=== PATIENT | male | born 1955 | race Caucasian/White ===

== ENCOUNTER 2019-12-05 08:55 | Inpatient (IN) ==
[2019-12-05 09:55] LABS: Hematocrit (blood only) 38.7 % (42-52); Hemoglobin 13.5 g/dL (14.0-18.0); Mean Corpuscular Hemoglobin 29.8 pg (25-34); Mean Corpuscular Hgb Conc 34.9 g/dL (32-36); Mean Corpuscular Volume 85.4 fL (80-100); Mean Platelet Volume 9.9 fL (7.4-10.4); Nucleated RBC # (auto) 0.03 K/uL (0-0); Nucleated RBC % (auto) 0.3 %; Platelet Count 330 K/uL (130-400); RDW Standard Deviation 40.7 fL (36.4-46.3); Red Blood Count 4.53 M/uL (4.7-6.1); White Blood Count 10.37 K/uL (4.8-10.8)
[2019-12-05 10:06] LABS: Alanine Aminotransferase 49 U/L (12-78); Aspartate Aminotransferase 93 U/L (15-37); BUN Creatinine Ratio 20.9 (10-20); Blood Urea Nitrogen 56 mg/dl (7-18); Carbon Dioxide 23 mmol/L (21-32); Chloride 95 mmol/L (98-107); Creatinine Clr Calc Pharmacy 31.8 ml/min; Est GFR (African American) 27.4; Est GFR (Non-African American) 23.6; Glucose 261 mg/dl (70-99); Potassium 3.3 mmol/L (3.5-5.1); Sodium 130 mmol/L (136-145)
[2019-12-05 10:11] LABS: Albumin Globulin Ratio 0.4 (0.9-2); Alkaline Phosphatase 103 U/L (45-117); Bilirubin,Total 0.5 mg/dl (0.2-1); Creatine Kinase MB 5.8 ng/ml (0.5-3.6); Globulin 5.3 gm/dl (2.5-4.0); NT Pro B Type Natriuretic Pept 275 pg/ml (0-900); Total Protein 7.3 gm/dl (6.4-8.2); Troponin I 0.037 ng/ml (0-0.045)
[2019-12-05 10:16] LABS: Partial Thromboplastin Time 28.9 Seconds (21.0-31.0); Prothrombin Time 10.6 Seconds (9.0-12.0)
--- NOTE | 2019-12-05 10:21 | XRay Report ---
XR chest 1V portable CLINICAL HISTORY: 64 years-old Male presenting with Dyspnea. TECHNIQUE: Portable upright AP view of the chest was obtained. COMPARISON: None. FINDINGS: Atherosclerosis of the aortic arch. Cardiac silhouette borderline enlarged. Patchy added density of t he lungs with a mid to basilar predominance, right greater than left. Bronchial wall thickening may a lso be present. Mild pulmonary vascular prominence. No large effusion or pneumothorax. Degenerative c hanges of the glenohumeral joints and spine. Upper abdomen normal. IMPRESSION: 1. Patchy bilateral infiltrates with a mid to basilar predominant suspected. Evaluation limited by p atient body habitus, which decreases diagnostic sensitivity the exam. Atypical pneumonia or edema not excluded. Chest CT could be considered for confirmation. 2. Borderline cardiomegaly. ACT 112: Negative or not required by law. Electronically signed by: Yfn Stallings M.D. 12/05/2019 10:20 AM
[2019-12-05 10:22] LABS: Base Excess ABG -0.6 mEq/L (-9-1.8); HCO3 ABG 22 mmol/L (19-24); Oxygen Saturation ABG 94.1 % (90-95); PCO2 ABG 29 mmHg (35-46); PO2 ABG 67 mmHg (80-95); pH ABG 7.49 (7.35-7.45)
[2019-12-05 10:26] LABS: Allen Test Pos (Pos)
[2019-12-05 10:31] LABS: D Dimer 2280 ug/L FEU (0-500)
[2019-12-05 10:36] LABS: Basophils # (auto) 0.01 K/uL (0-0.2); Basophils % (auto) 0.1 %; Immature Granulocytes # (auto) 0.06 K/uL (0.00-0.02); Immature Granulocytes % (auto) 0.6 %; Lymphocytes # (auto) 0.34 K/uL (1.2-3.4); Lymphocytes % (auto) 3.3 %; Monocytes # (auto) 0.14 K/uL (0.11-0.59); Monocytes % (auto) 1.4 %; Neutrophils # (auto) 9.82 K/uL (1.4-6.5); Neutrophils % (auto) 94.6 %; RBC Morphology Unremarkable
[2019-12-05 10:49] LABS: Adenovirus PCR Not Detected (NotDetected); Bordetella parapertussis PCR Not Detected (NotDetected); Bordetella pertussis PCR Not Detected (NotDetected); Chlamydia pneumoniae PCR Not Detected (NotDetected); Coronavirus 229E PCR Not Detected (NotDetected); Coronavirus HKU1 PCR Not Detected (NotDetected); Coronavirus NL63 PCR Not Detected (NotDetected); Coronavirus OC43PCR Not Detected (NotDetected); Human Metapneumovirus PCR Not Detected (NotDetected); Influenza A PCR Not Detected (NotDetected); Influenza B PCR Not Detected (NotDetected); Mycoplasma pneumoniae PCR Not Detected (NotDetected); Parainfluenza Virus 1 PCR Not Detected (NotDetected); Parainfluenza Virus 2 PCR Not Detected (NotDetected); Parainfluenza Virus 3 PCR Not Detected (NotDetected); Parainfluenza Virus 4 PCR Not Detected (NotDetected); Respiratory Syncytial VirusPCR Not Detected (NotDetected); Rhinovirus/Enterovirus PCR Not Detected (NotDetected)
[2019-12-05] MEDS ORDERED: CEFEPIME 2,000 MG/20 ML VIAL IV STA (11:00)
[2019-12-05] MEDS ORDERED: DOXYCYCLINE HYCLATE 100 MG in DEXTROSE 5% 100 ML IV STA (11:00)
--- NOTE | 2019-12-05 11:49 | Emergency Department Note ---
History of Present Illness General Chief Complaint: Shortness of Breath/Dyspnea Stated Complaint: DOC REFERRED,POSSIBLE COVID Source: patient and family Mode of arrival: ambulatory Limitations: clinical acuity History of Present Illness Provider Complaint: shortness of breath and cough Onset (ago): week(s) (2) Severity: severe Consistency/Duration: + constant Maximum Pain Intensity: 0 Relieved By: + nothing Exacerbated By: + nothing Context: + recent illness Associated symptoms: + fever, + cough and + wheezing Treatment prior to arrival: bronchodilator HPI Narrative: This is a 64-year-old male who presents to the ED with a chief complaint of 2 weeks worth of upper respiratory symptoms that progressively worsened. The patient has had a fever, cough, wheezing, shortness of breath and generalized weakness. The patient has a history of diabetes and his sugars have been fluctuating. His blood sugar was low last night according to family. He was confused today. The patient has taken Tylenol and Xopenex for his symptoms without improvement. He has not had any recent travel or known exposures. The patient is unable to provide much history because he is somewhat somnolent. His provided the history through the nurse. She is not ill. Home Medications Home Medications Medication Instructions Recorded Confirmed Type amlodipine 10 mg tablet 10 mg PO DAILY #90 tab 04/17/19 12/05/19 History glimepiride 4 mg tablet 8 mg PO DAILY #180 tab 04/17/19 12/05/19 History lisinopril 20 2 tab PO DAILY #180 tab 04/17/19 12/05/19 History mg-hydrochlorothiazide 12.5 mg tablet atorvastatin 40 mg tablet 40 mg PO DAILY #90 tab 05/08/19 12/05/19 Rx insulin syringe-needle U-100 1 mL #100 ea 06/05/19 08/22/19 Rx 30 gauge x 1/2" linagliptin 5 mg tablet 5 mg PO DAILY #90 tab 06/05/19 12/05/19 Rx metformin 1,000 mg tablet 1,000 mg PO UD #180 tab 08/20/19 12/05/19 History insulin glargine 100 unit/mL 54 units SUBCUT QPM #5 vial 09/09/19 12/05/19 Rx subcutaneous solution Allergies Allergy/AdvReac Type Severity Reaction Status Date / Time No Known Allergies Allergy Unknown Verified 12/05/19 09:58 Past Med/Surg History Medical History Dysplastic nevus Sebaceous cyst Surgical History No pertinent past surgical history Family History Mother Diabetes Father Cancer Lung cancer Aunt Colorectal cancer Denies family history of Ovarian cancer Prostate cancer Myocardial infarction Breast cancer Social History Preferred Language: Maltese Communication Ability: Effective Visual Impairment: No Limitations Hearing Ability: Normal Coding Specialist Required: No Beliefs That Will Affect Care: None marital status: current occupational status: employed 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 Feels Safe at Home: Yes Smoking Status: Current every day smoker Hx Alcohol Use: Yes Hx Substance Use: No Childhood Exposure to Second-Hand Smoke: Yes Dental Care, Regularly: Yes Physical Activity Frequency: Does not Exercise Seatbelt Use: sometimes Sunscreen Use: No Review of Systems Unobtainable due to reduced consciousness Physical Exam Vital Signs: Vital Signs - 24 hr 12/05/19 09:06 12/05/19 09:23 12/05/19 09:30 Temperature 37.7 C H Temperature Source Oral Pulse Rate 101 H 102 H 100 H Pulse Rate from Sp O2 Sensor 102 H 100 H Respiratory Rate 28 H 19 15 Respiratory Effort / Characteristics Spontaneous Short of Breath Respiratory Depth Respiratory Patter n Blood Pressure 119/70 130/70 129/70 Blood Pressure Zuleyka n 86 97 94 Blood Pressure Pos ition Sitting Pulse Oximetry 72 L 87 L 86 L Oxygen Delivery Me thod Room Air Oxygen Flow Rate Fraction of Inspir ed Oxygen Sepsis Recent Feve r Within 48 Hours Yes Sepsis New/Unexpla ined Change in Men sarahy Status No Sepsis Action Take n by Nursing No Action Required 12/05/19 09:39 12/05/19 09:40 12/05/19 09:58 Temperature Temperature Source Pulse Rate 102 H 99 H Pulse Rate from Sp O2 Sensor 92 H Respiratory Rate 19 26 H Respiratory Effort / Characteristics Respiratory Depth Normal Respiratory Patter n Regular Blood Pressure Blood Pressure Z[place] n Blood Pressure Pos ition Pulse Oximetry 87 L 95 Oxygen Delivery Me thod Room Air Oxygen Flow Rate 65 Fraction of Inspir ed Oxygen 100 Sepsis Recent Feve r Within 48 Hours Sepsis New/Unexpla ined Change in Men sarahy Status Sepsis Action Take n by Nursing Physical Exam: CONSTITUTIONAL/VITAL SIGNS: Reviewed / noted above. GENERAL: Non-toxic in appearance. INTEGUMENTARY: Warm, dry, and Iva. HEAD: Normocephalic. EYES: without scleral icterus or trauma. ENT/OROPHARYNX: clear and moist. LYMPHADENOPATHY/NECK: Is supple without lymphadenopathy or meningismus. RESPIRATORY: Lungs reveal bilateral rhonchi CARDIOVASCULAR: Regular rate and rhythm. GI/ABDOMEN: Soft and nontender. No organomegaly or pulsatile mass. No rebound or guarding. Normal bowel sounds. EXTREMITIES: Warm and well perfused. BACK: No CVA tenderness. NEUROLOGICAL: Intact without focal deficits. Generalized weakness PSYCHIATRIC: normal affect. MUSCULOSKELETAL: Normally developed with good muscle tone. TRIAGE NURSING DOCUMENTATION REVIEWED. Procedures ABG Interpretation ABG Interpretation 1: ABG Results: ABG reveals hypercarbia and a subsequent respiratory alkalosis. Oxygenation is adequate with supplemental oxygen at this time. Course Administered Medications Doxycycline Hyclate 100 mg/ (Dextrose) 110 mls @ 50 mls/hr IV NOW STA Stop: 12/05/19 13:11 Last Admin: 12/05/19 11:26 Dose: 50 mls/hr Documented by: [id number] Discontinued Medications Cefepime HCl (Maxipime) 2,000 mg in 20 mls @ 5 mls/min IV NOW STA; Protocol Stop: 12/05/19 11:03 Last Admin: 12/05/19 11:26 Dose: 5 mls/min Documented by: [id number] Medical Decision Making Differential Diagnosis The differential was considered includes acute myocardial infarction, acute coronary syndrome, myocarditis, pericarditis, pericardial effusions /tamponad, esophageal perforation, pulmonary embolism, pneumonia, pneumothorax, cardio myopathy, congestive heart, anemia , COPD/asthma exacerbation. Medical Records Attestation: I reviewed the patient's medical records. Home Medications Current Medication List: was personally reviewed by me Laboratory Data Attestation: I reviewed the patient's lab results. Result diagrams: 12/05/19 09:30 12/05/19 09:30 Lab Results 12/05/19 12/05/19 12/05/19 Range/Units 09:30 09:30 09:30 WBC 10.37 (4.8-10.8) K/uL RBC 4.53 L (4.7-6.1) M/uL Hgb 13.5 L (14.0-18.0) g/dL Hct 38.7 L (42-52) % MCV 85.4 (80-100) fL MCH 29.8 (25-34) pg MCHC 34.9 (32-36) g/dL RDW Std Deviation 40.7 (36.4-46.3) fL RDW Coeff of Josué 13.0 (11.5-14.5) % Plt Count 330 (130-400) K/uL MPV 9.9 (7.4-10.4) fL Immature Gran % (Auto) 0.6 % Neut % (Auto) 94.6 % Lymph % (Auto) 3.3 % [place] % (Auto) 1.4 % Eos % (Auto) 0.0 % Baso % (Auto) 0.1 % Immature Gran # (Auto) 0.06 H (0.00-0.02) K/uL Neut # (Auto) 9.82 H (1.4-6.5) K/uL Lymph # (Auto) 0.34 L (1.2-3.4) K/uL [place] # (Auto) 0.14 (0.11-0.59) K/uL Eos # (Auto) 0.00 (0-0.5) K/uL Baso # (Auto) 0.01 (0-0.2) K/uL Absolute Nucleated RBC 0.03 H (0-0) K/uL Nucleated RBC % (auto) 0.3 % RBC Morphology Unremarkable PT 10.6 (9.0-12.0) Seconds INR 1.0 (0.9-1.1) APTT 28.9 (21.0-31.0) Seconds PTT Ratio 1.0 D-Dimer 2280 H* (0-500) ug/L FEU ABG pH (7.35-7.45) ABG pCO2 (35-46) mmHg ABG pO2 (80-95) mmHg ABG HCO3 (19-24) mmol/L ABG O2 Saturation (90-95) % ABG Base Excess (-9-1.8) mEq/L Garett Test (Pos) Barometric Pressure mm/Hg Oxygen Given Sodium 130 L (136-145) mmol/L Potassium 3.3 L (3.5-5.1) mmol/L Chloride 95 L (98-107) mmol/L Carbon Dioxide 23 (21-32) mmol/L Anion Gap 12.0 H (3-11) BUN 56 H (7-18) mg/dl Creatinine 2.69 H (0.6-1.4) mg/dl Est Cr Clr Drug Dosing 31.8 ml/min Est GFR ( Amer) 27.4 Est GFR (Non-Af Amer) 23.6 BUN/Creatinine Ratio 20.9 H (10-20) Glucose 261 H (70-99) mg/dl Calcium 8.0 L (8.5-10.1) mg/dl Total Bilirubin 0.5 (0.2-1) mg/dl AST 93 H (15-37) U/L ALT 49 (12-78) U/L Alkaline Phosphatase 103 (45-117) U/L CK-MB (CK-2) 5.8 H (0.5-3.6) ng/ml Troponin I 0.037 (0-0.045) ng/ml NT-Pro-B Natriuret Pep 275 (0-900) pg/ml Total Protein 7.3 (6.4-8.2) gm/dl Albumin 2.0 L (3.4-5.0) gm/dl Globulin 5.3 H (2.5-4.0) gm/dl Albumin/Globulin Ratio 0.4 L (0.9-2) Adenovirus (PCR) (NotDetected) B. pertussis DNA (PCR) (NotDetected) B.parapertussis DNA PCR (NotDetected) C. pneumoniae DNA (PCR) (NotDetected) Coronavirus OC43 (PCR) (NotDetected) Coronavirus HKU1 (PCR) (NotDetected) Coronavirus 229E (PCR) (NotDetected) Coronavirus NL63 (PCR) (NotDetected) Human Metapneumovir PCR (NotDetected) Influenza Type A (PCR) Influenza Type B (PCR) M. pneumoniae (PCR) (NotDetected) Parainfluenza 1 (PCR) (NotDetected) Parainfluenza 2 (PCR) (NotDetected) Parainfluenza 3 (PCR) (NotDetected) Parainfluenza 4 (PCR) (NotDetected) RSV (PCR) (NotDetected) Entero/Rhino (PCR) (NotDetected) 12/05/19 12/05/19 12/05/19 Range/Units 09:30 09:30 10:08 WBC (4.8-10.8) K/uL RBC (4.7-6.1) M/uL Hgb (14.0-18.0) g/dL Hct (42-52) % MCV (80-100) fL MCH (25-34) pg MCHC (32-36) g/dL RDW Std Deviation (36.4-46.3) fL RDW Coeff of Josué (11.5-14.5) % Plt Count (130-400) K/uL MPV (7.4-10.4) fL Immature Gran % (Auto) % Neut % (Auto) % Lymph % (Auto) % [place] % (Auto) % Eos % (Auto) % Baso % (Auto) % Immature Gran # (Auto) (0.00-0.02) K/uL Neut # (Auto) (1.4-6.5) K/uL Lymph # (Auto) (1.2-3.4) K/uL [place] # (Auto) (0.11-0.59) K/uL Eos # (Auto) (0-0.5) K/uL Baso # (Auto) (0-0.2) K/uL Absolute Nucleated RBC (0-0) K/uL Nucleated RBC % (auto) % RBC Morphology PT (9.0-12.0) Seconds INR (0.9-1.1) APTT (21.0-31.0) Seconds PTT Ratio D-Dimer (0-500) ug/L FEU ABG pH 7.49 H (7.35-7.45) ABG pCO2 29 L (35-46) mmHg ABG pO2 67 L (80-95) mmHg ABG HCO3 22 (19-24) mmol/L ABG O2 Saturation 94.1 (90-95) % ABG Base Excess -0.6 (-9-1.8) mEq/L Garett Test Pos (Pos) Barometric Pressure 729.9 mm/Hg Oxygen Given 100% Sodium (136-145) mmol/L Potassium (3.5-5.1) mmol/L Chloride (98-107) mmol/L Carbon Dioxide (21-32) mmol/L Anion Gap (3-11) BUN (7-18) mg/dl Creatinine (0.6-1.4) mg/dl Est Cr Clr Drug Dosing ml/min Est GFR ( Amer) Est GFR (Non-Af Amer) BUN/Creatinine Ratio (10-20) Glucose (70-99) mg/dl Calcium (8.5-10.1) mg/dl Total Bilirubin (0.2-1) mg/dl AST (15-37) U/L ALT (12-78) U/L Alkaline Phosphatase (45-117) U/L CK-MB (CK-2) (0.5-3.6) ng/ml Troponin I (0-0.045) ng/ml NT-Pro-B Natriuret Pep (0-900) pg/ml Total Protein (6.4-8.2) gm/dl Albumin (3.4-5.0) gm/dl Globulin (2.5-4.0) gm/dl Albumin/Globulin Ratio (0.9-2) Adenovirus (PCR) Not Detected (NotDetected) B. pertussis DNA (PCR) Not Detected (NotDetected) B.parapertussis DNA PCR Not Detected (NotDetected) C. pneumoniae DNA (PCR) Not Detected (NotDetected) Coronavirus OC43 (PCR) Not Detected (NotDetected) Coronavirus HKU1 (PCR) Not Detected (NotDetected) Coronavirus 229E (PCR) Not Detected (NotDetected) Coronavirus NL63 (PCR) Not Detected (NotDetected) Human Metapneumovir PCR Not Detected (NotDetected) Influenza Type A (PCR) Cancelled Not Detected Influenza Type B (PCR) Cancelled Not Detected M. pneumoniae (PCR) Not Detected (NotDetected) Parainfluenza 1 (PCR) Not Detected (NotDetected) Parainfluenza 2 (PCR) Not Detected (NotDetected) Parainfluenza 3 (PCR) Not Detected (NotDetected) Parainfluenza 4 (PCR) Not Detected (NotDetected) RSV (PCR) Not Detected (NotDetected) Entero/Rhino (PCR) Not Detected (NotDetected) Imaging Data Radiologist's Impression: XR chest 1V portable CLINICAL HISTORY: 64 years-old Male presenting with Dyspnea. TECHNIQUE: Portable upright AP view of the chest was obtained. COMPARISON: None. FINDINGS: Atherosclerosis of the aortic arch. Cardiac silhouette borderline enlarged. Patchy added density of the lungs with a mid to basilar predominance, right greater than left. Bronchial wall thickening may also be present. Mild pulmonary vascular prominence. No large effusion or pneumothorax. Degenerative changes of the glenohumeral joints and spine. Upper abdomen normal. IMPRESSION: 1. Patchy bilateral infiltrates with a mid to basilar predominant suspected. Evaluation limited by patient body habitus, which decreases diagnostic sensitivity the exam. Atypical pneumonia or edema not excluded. Chest CT could be considered for confirmation. 2. Borderline cardiomegaly. ECG Data Attestation: I personally reviewed and interpreted this ECG as follows: (Twelve- lead EKG shows a sinus tach at a rate of 101. No ST elevation or PVCs. ) Blood Pressure Blood Pressure Findings: Normal blood pressure MDM Narrative This is a 64-year-old male who presents to the ED with a chief complaint of 2 weeks worth of upper respiratory symptoms that progressively worsened. The patient has had a fever, cough, wheezing, shortness of breath and generalized weakness. The patient has a history of diabetes and his sugars have been flu ctuating. His blood sugar was low last night according to family. He was confused today. The patient has taken Tylenol and Xopenex for his symptoms without improvement. He has not had any recent travel or known exposures. The patient is unable to provide much history because he is somewhat somnolent. His provided the history through the nurse. She is not ill. The patient is significantly hypoxic here with initial oxygen saturations of 72% on room air. He does not use home oxygen. The patient was febrile at home with a temperature of 102. He has not been febrile here. Temperature here was 37.7. He does not appear to be in respiratory distress. He does seem to be somewhat lethargic although his ABG did not look like he is hypoventilating. He is not hypercarbic. CBC was normal. D-dimer is elevated at 2280. His BUN is 56 and creatinine is 2.69. No known history of renal issues. He is hyperglycemic. Chest x-ray reveals bilateral infiltrates. Flu swab was negative and a bio fire was negative. The patient was started on IV cefepime as well as IV doxycycline. He was also initiated with BiPAP shortly after he came in. He does appear to be saturating much better on the BiPAP in the mid 90s on 65%. The patient will be seen by the hospitalist for further inpatient evaluation and care. Impression & Plan Bilateral pneumonia, Respiratory failure, Hypoxia, Acute renal failure (ARF), Acute dehydration Critical Care Time Critical Care Time: Yes Total Critical Care Time: 35 I have personally spent 35 minutes of critical care time in the direct management of this patient. This includes bedside care, interpretation of diagnostic studies, and testing, discussion with consultants, patient, and family members, and other required patient management activities. This 35 minutes is in excess of all separately billable procedures. Discharge Plan Visit Data Chief Complaint: Shortness of Breath/Dyspnea Stated Complaint: DOC REFERRED,POSSIBLE COVID ED Provider: Rony Gomes Discharge Problem: Bilateral pneumonia, Respiratory failure, Hypoxia, Acute renal failure (ARF), Acute dehydration Patient Disposition: Being Evaluated by Hospitalist Forms Stand Alone Forms: My [facility] Prescriptions Prescriptions: No Action atorvastatin 40 mg tablet 40 mg PO DAILY Qty: 90 RF: 3 linagliptin 5 mg tablet 5 mg PO DAILY Qty: 90 RF: 1 (DME) insulin syringe-needle U-100 [BD Insulin Syringe Ultra-Fine] 1 mL 30 gauge x 1/2" syringe See Dose Instructions .ROUTE .MEDSUPPLY Qty: 100 RF: 2 insulin glargine 100 unit/mL solution 54 units subcut QPM Qty: 5 RF: 2 amlodipine 10 mg tablet 10 mg PO DAILY Qty: 90 RF: 0 glimepiride 4 mg tablet 8 mg PO DAILY Qty: 180 RF: 0 lisinopril-hydrochlorothiazide 20-12.5 mg tablet 2 tab PO DAILY Qty: 180 RF: 0 metformin 1,000 mg tablet 1,000 mg PO UD Qty: 180 RF: 0 Referrals Referrals: Lee Jones MD [Primary Care Provider] -
--- NOTE | 2019-12-05 12:20 | History & Physical Report ---
Date of Service December 05, 2019 Assessment & Plan (1) Acute respiratory failure with hypoxia: Admit to ICU. B/l pneumonia on chest x-ray. Clinical picture highly concerning for COVID-19 (normal wbc count, lymphopenia, elevated AST, elevated d-dimer, cxr findings, etc). Profoundly hypoxic upon presentation; improved with NIPPV. Spoke with Dr Goel from ICU; reviewed the patient's case with him in detail; Dr Goel to consider early intubation given COVID-19 concerns and high risk of worsening respiratory status. To cover for bacterial pneumonia - cefepime 2gm q8h; zyvox while awaiting MRSA screen; doxy for atypicals. No indication for steroids at this time. COVID pathway - airborne isolation, contact isolation, etc (2) Suspected 2019 novel coronavirus infection: see above in "acute hypoxic resp failure" biofire negative flu negative COVID sent LDH added to labs (3) Sepsis: 2nd to pneumonia high concern of COVID-19 infection supportive care, IVF, IV antibiotics, etc (4) Bilateral pneumonia: see above blood cx's sent cefepime/zyvox/doxy to cover typicals, atypicals, gram negatives MRSA [employer] swab COVID-19 sent (5) Acute renal failure (ARF): 2nd to dehydration/sepsis Normosol hydration serial labs HOLD MIKAEL HOLD HCTZ avoid NSAIDs (6) Chronic obstructive pulmonary disease: by history, but not on inhalers at home. no wheezing on examination -- just b/l basilar rales. avoid nebs. see above in "acute hypoxic resp failure." (7) Current smoker: consider nicoderm patch defer to ICU 50+ years of smoking per patient (8) Gastroesophageal reflux disease: PPI or H2 kristian per ICU protocol (9) Gout: no recent issues not on prophylaxis (10) Obstructive sleep apnea: noted (11) Hyperlipidemia: hold STATIN (12) Hypertension: HOLD anti-hypertensives (HCTZ, MIKAEL, norvasc, etc) some literature suggesting some protection with MIKAEL use but need to hold in light of ARF (13) Diabetes mellitus type II, uncontrolled: hyperglycemic ICU protocol defer to pharmacy (14) Hypokalemia: KCL 10meq IV x 1 serial labs mag level not low (15) Hyponatremia: likely due to dehydration/volume depletion and chronic HCTZ use (16) Metabolic encephalopathy: multifactorial - sepsis, pneumonia, possible COVID-19, hyponatremia, hypoxia, etc supportive care (17) DVT prophylaxis: defer selection to critical care team History of Present Illness Chief Complaint: shortness of breath Primary Care Provider: Lee Jones MD 64yo male with history of COPD, ongoing tobacco dependence, T2DM, obesity, ASA on CPAP - presents from home with 10-14 days of cough, worsening shortness of breath, fevers (which worsened 3-4 days ago), poor appetite, and runny nose. Patient works in the [employer] industry but has not worked of late. No recent travel. No obvious sick contacts. 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 Due to worsening respiratory distress this am he was brought to the [facility] ER. Upon arrival he was hypoxic in the 70s and placed on BIPAP for such. By report he was quite lethargic upon admission but after receiving BIPAP his mentation improved. During my admission assessment he was able to answer all of my questions but at times he was confused. Admits to not checking his blood sugars at home. After I had left his isolation room staff reported that he has an ulcer on one of his feet (per ). Allergies Allergy/AdvReac Type Severity Reaction Status Date / Time No Known Allergies Allergy Unknown Verified 12/05/19 09:58 Home Medications Home Medications Medication Instructions Recorded Confirmed Type amlodipine 10 mg tablet 10 mg PO DAILY #90 tab 04/17/19 12/05/19 History glimepiride 4 mg tablet 8 mg PO DAILY #180 tab 04/17/19 12/05/19 History lisinopril 20 2 tab PO DAILY #180 tab 04/17/19 12/05/19 History mg-hydrochlorothiazide 12.5 mg tablet atorvastatin 40 mg tablet 40 mg PO DAILY #90 tab 05/08/19 12/05/19 Rx insulin syringe-needle U-100 1 mL #100 ea 06/05/19 08/22/19 Rx 30 gauge x 1/2" linagliptin 5 mg tablet 5 mg PO DAILY #90 tab 06/05/19 12/05/19 Rx metformin 1,000 mg tablet 1,000 mg PO UD #180 tab 08/20/19 12/05/19 History insulin glargine 100 unit/mL 54 units SUBCUT QPM #5 vial 09/09/19 12/05/19 Rx subcutaneous solution Past Med/Surg History Surgical History No pertinent past surgical history Family History Mother Diabetes Father Cancer Lung cancer age 53 Aunt Colorectal cancer Denies family history of Ovarian cancer Prostate cancer Myocardial infarction Breast cancer Social History (Updated 12/05/19 @ 12:47 by Hector Turner) Preferred Language: Maltese Communication Ability: Effective Visual Impairment: No Limitations Hearing Ability: Normal Testing And Regulating Technician Required: No Beliefs That Will Affect Care: None marital status: Current Living Situation: Spouse Current Living Situation Comment: lives with ; no kids current occupational status: employed 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; [employer] Other Information That Helps Us Care for You: No Feels Safe at Home: Yes Safety Concerns: Feels Safe At This Time Smoking Status: Current every day smoker Tobacco Type: cigarettes ; Cigarettes Per Day: does not know, recently none ; Do You Dip or Chew Tobacco: No ; Second Hand Exposure: No ; Tobacco Cessation Education Requested by Patient: No Hx Alcohol Use: Yes Hx Substance Use: No Childhood Exposure to Second-Hand Smoke: Yes Dental Care, Regularly: Yes Physical Activity Frequency: Does not Exercise Seatbelt Use: sometimes Sunscreen Use: No Review of Systems Constitutional: + fever, + chills, + fatigue and + anorexia Eyes: no discharge Ear, Nose, Mouth, Throat: + nasal discharge; no sore throat Respiratory: + cough and + dyspnea on exertion; no pain on inspiration Cardiovascular: + dyspnea at rest and + dyspnea on exertion; no chest pain, no chest pain at rest and no chest pain with activity Gastrointestinal: + constipation; no abdominal pain, no nausea, no vomiting and no diarrhea/loose stools Genitourinary: no dysuria Musculoskeletal: + myalgia and + body aches Integumentary: no rash Neurologic: + generalized weakness Endocrine: doesn't check BSGs Physical Exam Constitutional: + morbidly obese and + altered mental status; no acute distress Eyes: + anicteric sclerae and PERRL ENMT: Mouth: + dry oral mucous membranes Neck: normal visual inspection Respiratory: no respiratory distress and does not use accessory muscles Auscultation: + rales (bibasilar); no wheezes Cardiovascular: Rate/Rhythm: regular rate and regular rhythm Heart Sounds: normal S1 and normal S2 Vessels: posterior tibial pulses present and dorsalis pedis pulses present; no JVD Extremities: no edema cool extremities to touch Gastrointestinal (Abdomen): normal bowel sounds, soft, nontender, no hepatosplenomegaly Skin: no rashes Neurologic: moves all extremities Psychiatric: Orientation: oriented to person and oriented to place; + not oriented to time Results & Data Results & Data ([facility]) Vital Signs (Past 12 Hours) Vital Signs Temp Pulse Resp BP Pulse Ox 12/05/19 09:58 99 H 26 H 95 12/05/19 09:40 102 H 19 87 L 12/05/19 09:30 100 H 15 129/70 86 L 12/05/19 09:23 102 H 19 130/70 87 L 12/05/19 09:06 37.7 C H 101 H 28 H 119/70 72 L Laboratory Results Laboratory Results - last 24 hr 12/05/19 12/05/19 12/05/19 09:30 09:30 09:30 WBC 10.37 RBC 4.53 L Hgb 13.5 L Hct 38.7 L MCV 85.4 MCH 29.8 MCHC 34.9 RDW Std Deviation 40.7 RDW Coeff of Josué 13.0 Plt Count 330 MPV 9.9 Immature Gran % (Auto) 0.6 Neut % (Auto) 94.6 Lymph % (Auto) 3.3 Tompkins % (Auto) 1.4 Eos % (Auto) 0.0 Baso % (Auto) 0.1 Immature Gran # (Auto) 0.06 H Neut # (Auto) 9.82 H Lymph # (Auto) 0.34 L Tompkins # (Auto) 0.14 Eos # (Auto) 0.00 Baso # (Auto) 0.01 Absolute Nucleated RBC 0.03 H Nucleated RBC % (auto) 0.3 RBC Morphology Unremarkable PT 10.6 INR 1.0 APTT 28.9 PTT Ratio 1.0 D-Dimer 2280 H* ABG pH ABG pCO2 ABG pO2 ABG HCO3 ABG O2 Saturation ABG Base Excess Garett Test Barometric Pressure Oxygen Given Sodium 130 L Potassium 3.3 L Chloride 95 L Carbon Dioxide 23 Anion Gap 12.0 H BUN 56 H Creatinine 2.69 H Est Cr Clr Drug Dosing 31.8 Est GFR ( Amer) 27.4 Est GFR (Non-Af Amer) 23.6 BUN/Creatinine Ratio 20.9 H Glucose 261 H Calcium 8.0 L Total Bilirubin 0.5 AST 93 H ALT 49 Alkaline Phosphatase 103 CK-MB (CK-2) 5.8 H Troponin I 0.037 NT-Pro-B Natriuret Pep 275 Total Protein 7.3 Albumin 2.0 L Globulin 5.3 H Albumin/Globulin Ratio 0.4 L Adenovirus (PCR) B. pertussis DNA (PCR) B.parapertussis DNA PCR C. pneumoniae DNA (PCR) Coronavirus (PCR) Coronavirus OC43 (PCR) Coronavirus HKU1 (PCR) Coronavirus 229E (PCR) COVID-19 Pt Symptomatic COVID-19 Source Coronavirus NL63 (PCR) Human Metapneumovir PCR Influenza Type A (PCR) Influenza Type B (PCR) M. pneumoniae (PCR) Parainfluenza 1 (PCR) Parainfluenza 2 (PCR) Parainfluenza 3 (PCR) Parainfluenza 4 (PCR) RSV (PCR) Entero/Rhino (PCR) SARS Virus RNA (PCR) SARS-CoV-2 RNA (RT-PCR) 12/05/19 12/05/19 12/05/19 09:30 09:30 09:30 WBC RBC Hgb Hct MCV MCH MCHC RDW Std Deviation RDW Coeff of Josué Plt Count MPV Immature Gran % (Auto) Neut % (Auto) Lymph % (Auto) Tompkins % (Auto) Eos % (Auto) Baso % (Auto) Immature Gran # (Auto) Neut # (Auto) Lymph # (Auto) Tompkins # (Auto) Eos # (Auto) Baso # (Auto) Absolute Nucleated RBC Nucleated RBC % (auto) RBC Morphology PT INR APTT PTT Ratio D-Dimer ABG pH ABG pCO2 ABG pO2 ABG HCO3 ABG O2 Saturation ABG Base Excess Garett Test Barometric Pressure Oxygen Given Sodium Potassium Chloride Carbon Dioxide Anion Gap BUN Creatinine Est Cr Clr Drug Dosing Est GFR ( Amer) Est GFR (Non-Af Amer) BUN/Creatinine Ratio Glucose Calcium Total Bilirubin AST ALT Alkaline Phosphatase CK-MB (CK-2) Troponin I NT-Pro-B Natriuret Pep Total Protein Albumin Globulin Albumin/Globulin Ratio Adenovirus (PCR) Not Detected B. pertussis DNA (PCR) Not Detected B.parapertussis DNA PCR Not Detected C. pneumoniae DNA (PCR) Not Detected Coronavirus (PCR) Pending Coronavirus OC43 (PCR) Not Detected Coronavirus HKU1 (PCR) Not Detected Coronavirus 229E (PCR) Not Detected COVID-19 Pt Symptomatic Pending COVID-19 Source Pending Coronavirus NL63 (PCR) Not Detected Human Metapneumovir PCR Not Detected Influenza Type A (PCR) Cancelled Not Detected Influenza Type B (PCR) Cancelled Not Detected M. pneumoniae (PCR) Not Detected Parainfluenza 1 (PCR) Not Detected Parainfluenza 2 (PCR) Not Detected Parainfluenza 3 (PCR) Not Detected Parainfluenza 4 (PCR) Not Detected RSV (PCR) Not Detected Entero/Rhino (PCR) Not Detected SARS Virus RNA (PCR) Pending SARS-CoV-2 RNA (RT-PCR) Pending 12/05/19 10:08 WBC RBC Hgb Hct MCV MCH MCHC RDW Std Deviation RDW Coeff of Josué Plt Count MPV Immature Gran % (Auto) Neut % (Auto) Lymph % (Auto) Tompkins % (Auto) Eos % (Auto) Baso % (Auto) Immature Gran # (Auto) Neut # (Auto) Lymph # (Auto) Tompkins # (Auto) Eos # (Auto) Baso # (Auto) Absolute Nucleated RBC Nucleated RBC % (auto) RBC Morphology PT INR APTT PTT Ratio D-Dimer ABG pH 7.49 H ABG pCO2 29 L ABG pO2 67 L ABG HCO3 22 ABG O2 Saturation 94.1 ABG Base Excess -0.6 Garett Test Pos Barometric Pressure 729.9 Oxygen Given 100% Sodium Potassium Chloride Carbon Dioxide Anion Gap BUN Creatinine Est Cr Clr Drug Dosing Est GFR ( Amer) Est GFR (Non-Af Amer) BUN/Creatinine Ratio Glucose Calcium Total Bilirubin AST ALT Alkaline Phosphatase CK-MB (CK-2) Troponin I NT-Pro-B Natriuret Pep Total Protein Albumin Globulin Albumin/Globulin Ratio Adenovirus (PCR) B. pertussis DNA (PCR) B.parapertussis DNA PCR C. pneumoniae DNA (PCR) Coronavirus (PCR) Coronavirus OC43 (PCR) Coronavirus HKU1 (PCR) Coronavirus 229E (PCR) COVID-19 Pt Symptomatic COVID-19 Source Coronavirus NL63 (PCR) Human Metapneumovir PCR Influenza Type A (PCR) Influenza Type B (PCR) M. pneumoniae (PCR) Parainfluenza 1 (PCR) Parainfluenza 2 (PCR) Parainfluenza 3 (PCR) Parainfluenza 4 (PCR) RSV (PCR) Entero/Rhino (PCR) SARS Virus RNA (PCR) SARS-CoV-2 RNA (RT-PCR) Diagnostic Findings cxr - b/l infiltrates EKG - my reading sinus tach, no ST changes, prolonged QTc Code Status & VTE Plan Code Status full code VTE Prophylaxis Plan VTE Prophylaxis will be ordered: Yes Critical Care Time Critical Care Time: Yes Total Critical Care Time: 70 PG Care Time/CCT Total # of Minutes Spent Total Time Spent with Patient: Total time spent is greater than 50% in coordination of care (as documented) at patient's floor/unit and/or counseling patient: Critical Care Time: Yes Total Critical Care Time: 70 Coding Level of Care Code None Diagnoses Acute respiratory failure with hypoxia J96.01 Suspected 2019 novel coronavirus infection R68.89 Sepsis A41.9 Bilateral pneumonia J18.9 Lung location: lower lobe of lung Pneumonia type: due to unspecified organism Acute renal failure (ARF) N17.9 Acute renal failure type: unspecified Chronic obstructive pulmonary disease J44.9 Current smoker F17.200 Gastroesophageal reflux disease K21.9 Gout M10.9 Obstructive sleep apnea G47.33 Hyperlipidemia E78.5 Hypertension I10 Diabetes mellitus type II, uncontrolled E11.65 Hypokalemia E87.6 Hyponatremia E87.1 Metabolic encephalopathy G93.41 DVT prophylaxis Z29.9 Additional Codes Critical Care Time - Critical Care Time: Yes ([id number]) (1) Acute renal failure (ARF) Acute renal failure type: unspecified Qualified Code(s): N17.9 - Acute kidney failure, unspecified (2) Bilateral pneumonia Lung location: lower lobe of lung Pneumonia type: due to unspecified organism Qualified Code(s): J18.9 - Pneumonia, unspecified organism
[2019-12-05] MEDS ORDERED: INFLUENZA ADMINISTRATION CHARGE ONE (12:28)
[2019-12-05] MEDS ORDERED: INFLUENZA VACCINE HIGH DOSE 65+ 0.5 ML SYR IM ONE (12:28)
[2019-12-05] MEDS ORDERED: PNEUMOCOCCAL ADMINISTRATION CHARGE ONE (12:28)
[2019-12-05] MEDS ORDERED: PNEUMOCOCCAL POLYSACCHARIDES 25 MCG/0.5 ML VIAL/SYR IM ONE (12:28)
[2019-12-05] MEDS ORDERED: RAPID SEQUENCE INDUCTION BAG ONE (12:45)
[2019-12-05] MEDS ORDERED: STAT IV Infusion **Titration per Protocol STA (13:07)
--- NOTE | 2019-12-05 13:12 | Electrocardiogram Report ---
Test Reason : Blood Pressure : / mmHG Vent. Rate : 101 BPM Atrial Rate : 101 BPM P-R Int : 000 ms QRS Dur : 082 ms QT Int : 400 ms P-R-T Axes : 000 002 071 degrees QTc Int : 518 ms Sinus tachycardia Otherwise Normal ECG No previous ECGs available Confirmed by Maxx Arroyo ([id number]) on 12/05/2019 1:11:52 PM Referred By: Confirmed By:Maxx Arroyo
[2019-12-05] MEDS ORDERED: POTASSIUM CHLORIDE / WTR 10 MEQ/100 ML PLCT IV ONE (13:38)
[2019-12-05] MEDS ORDERED: LINEZOLID CONSULT ACTIVE PRN (13:38)
[2019-12-05] MEDS ORDERED: ICU PROTOCOL FOR HYPERGLYCEMIA PRN (13:38)
[2019-12-05] MEDS ORDERED: LINEZOLID 600 MG/300 ML D5W IV SCH (13:38)
[2019-12-05] MEDS ORDERED: VECURONIUM BROMIDE 10 MG VIAL IV ONE (13:41)
[2019-12-05] MEDS ORDERED: ETOMIDATE 2 MG/ML 20 ML VIAL IV ONE (13:41)
[2019-12-05] MEDS ORDERED: SUCCINYLCHOLINE CHLORIDE 20 MG/ML 10 ML VIAL IV ONE (13:41)
[2019-12-05] MEDS ORDERED: MIDAZOLAM HCL 5 MG/ML VIAL IV ONE (13:41)
[2019-12-05] MEDS ORDERED: fentaNYL citrate 100 MCG/2 ML CARP IV ONE (13:41)
--- NOTE | 2019-12-05 14:31 | XRay Report ---
XR chest 1V portable HISTORY: Tube/Line Placement COMPARISON: Chest 12/05/2019. FINDINGS: No pneumothorax. No pleural effusions. The heart remains borderline enlarged. Endotracheal tube terminates 4.8 cm from the isra. Left subclavian central venous catheter terminates at the exp ected location of the distal left brachiocephalic vein. Nasogastric tube terminates in the stomach. I nterstitial thickening and patchy hazy airspace opacities persist. IMPRESSION: 1. Endotracheal tube terminates 4.8 cm from the isra. 2. Left subclavian central venous catheter turns at the distal left brachiocephalic vein. 3. Nasogastric tube terminates in the stomach. 4. Persistent bilateral patchy hazy airspace opacities consistent with a pneumonia. ACT 112: Negative or not required by law. Electronically signed by: Martinez Montaño M.D. 12/05/2019 2:30 PM
[2019-12-05] MEDS: fentaNYL DRIP 1,250 MCG/250 ML BAG IV SCH ×2 (15:08→23:47)
[2019-12-05] MEDS: FENTANYL BOLUS FROM BAG IV PRN ×2 (15:09→21:38)
[2019-12-05] MEDS: NORMOSOL-R 1,000 ML IV SCH ×2 (15:09→18:29)
[2019-12-05] MEDS: MIDAZOLAM HCL 125 MG/250 ML BAG IV SCH ×2 (15:09→23:38)
[2019-12-05] MEDS: LINEZOLID 600 MG/300 ML BAG IV SCH (15:51)
--- NOTE | 2019-12-05 15:59 | Procedure Note ---
Procedure Note Date of Service December 05, 2019 Procedure date: Noted above Procedure: Radial artery cannulation Pre-procedure Diagnosis: Need for invasive monitoring frequent blood draws secondary to acute hypoxic respiratory failure in the setting of COVID pandemic Post-procedure Diagnosis: same as above Prior to Procedure: Informed Consent: The risks, benefits, indications, potential complications, and alternatives were explained to the patient and patient's and verbal informed consent obtained. Attending Staff: Douglas Goel DO Skin Prep: Chlorhexidine Anesthesia: 3 mL 1% lidocaine without epinephrine The identity of the patient was confirmed and a bedside time out was performed. Description of Procedure: After sterile prep and sterile drape utilizing standard sterile technique the superficial skin of the right radial artery was anesthetized. The target artery was identified via dynamic ultrasound guidance and entered with a 20-gauge arrow Angiocath. Pulsatile bright red blood return was noted. Via modified Seldinger technique the self-contained guidewire was advanced and the Angiocath advanced over the guidewire. The guidewire was removed and brisk arterial blood return was noted. The pressure monitor was connected, and the arterial line was secured via commercial securement device. A sterile dressing was then applied. Complications: None Estimated blood loss: Trace Patient tolerated the procedure well. Coding CPT Codes Tubes, Drains, and Vasc Access - Tubes, Drains, and Vasc Access: [id number] Place Catheter In Artery ([id number]) [facility] [place] C[place] (Charges) Tubes, Drains, and Vasc Access Procedure 1: Tubes, Drains, and Vasc Access: [id number] Place Catheter In Artery
--- NOTE | 2019-12-05 16:03 | Procedure Note ---
Procedure Note Date of Service December 05, 2019 Procedure date: Noted above Procedure: Central venous access Pre-procedure indication: Pronating, need for secure vascular access Post-procedure Diagnosis: same as above Prior to Procedure: Informed Consent: The risks, benefits, indications, potential complications, and alternatives were explained to the patient and patient's and verbal informed consent obtained. Attending Staff: Douglas Goel DO Resident/APC: Not applicable Skin Prep: Chlorhexidine Anesthesia: 4 mL 1% lidocaine without epinephrine The identity of the patient was confirmed and a bedside time out was performed. Description of Procedure: After sterile prep and sterile drape utilizing standard sterile technique the superficial skin of the left subclavian area was anesthetized. The target vessel was identified and entered with an 18-gauge needle. Dark venous blood return was noted. A guidewire was inserted through the needle and into the vessel. The needle was withdrawn and a skin cyril was made. A tissue dilator was advanced via Seldinger technique and removed. A triple lumen catheter was inserted via Seldinger technique and the guidewire removed. All ports gricel and flushed easily. A Biopatch was placed, and the catheter was secured via silk suture. A sterile dressing was then applied. Complications: None Estimated blood loss: Trace Patient tolerated the procedure well. Postprocedural chest x-ray was reviewed, the line appears to be extending to the vena caval atrial junction versus the left cephalic vein, I am comfortable with the position at this time Coding
--- NOTE | 2019-12-05 16:09 | Procedure Note ---
Procedure Note Date of Service December 05, 2019 Procedure Date: Noted above Procedure: Endotracheal intubation Pre-procedure Diagnosis: Acute hypoxic respiratory failure suspected COVID-19 Post-procedure Diagnosis: same as above Prior to Procedure: Informed Consent: emergent Attending Staff: Douglas Goel DO The identity of the patient was confirmed and a bedside time out was performed. Description of Procedure: Patient was evaluated and required intubation for impending respiratory failure. The patient was prepared in the usual fashion. A 4 glidescope was used. A 8.5 mm inner diameter endotrachial tube was placed endotracheally to 24 cm at the teeth. A grade 1 view was obtained. The endotracheal tube was noted to pass thr ough the vocal cords. Chest rise was bilateral. Bilateral breath sounds were heard without air sounds in the abdomen. Mist was noted in the endotracheal tube. End-tidal CO2 measurement was positive. Chest x-ray shows proper endotracheal tube placement. Complications: Initial hypoxia once placed on ventilator as mode was in stand- by. This was recognized, corrected, and the patient did not appear to have and ill effects. Findings: Not applicable Specimens: Not applicable Estimated blood loss: Zero Coding CPT Codes Resuscitation - Resuscitation: [id number] Endotracheal Intubation, emergency ([id number][place] [facility] [place] Codes ([place]arges) Resuscitation Resuscitation: [id number] Endotracheal Intubation, emergency
--- NOTE | 2019-12-05 16:23 | Critical Care Consultation ---
Date of Consultation December 05, 2019 Assessment & Plan (1) Acute respiratory failure with hypoxia: Reason Critically Ill: 64-year-old male with acute hypoxic respiratory failure presumptively secondary to 2019 not well coronavirus PLAN: Neuro: Metabolic encephalopathy -Improved with improved oxygenation Sedatives and neuromuscular blockade: -Deep sedation with fentanyl and Versed, vecuronium as needed bolus Resp: Acute hypoxic respiratory failure Acute respiratory alkalosis COPD Current tobacco use Obstructive sleep apnea Acute respiratory distress syndrome: PF ratio: 67: Repeat blood gas pending -Following guidelines patient was emergently intubated. -Continue broad-spectrum antibiotics: Linezolid, doxycycline, cefepime -Patient immediately prone and due to high vent requirements -Current settings respiratory rate 20, tidal volume 400, PEEP 20, FiO2 50 -Anticipate reversal from prone at 6 AM -Vecuronium as needed: Hope to achieve deep sedation CV: Elevated CK-MB -COVID-19 is associated with myocarditis, serial troponins Fluids/Renal: Acute kidney injury -Judicious use of IV fluids per guidelines -Normosol at 50 ID: COVID testing pending blood cultures pending -Sputum culture to be obtained GI/Nutrition: N.p.o. Morbid obesity: BMI 37 Heme: Anemia -Suspect viral bone marrow suppression DVT prophylaxis: Heparin 5000 twice daily Endocrine: ICU hyperglycemia protocol Vascular access: Right arterial line placed December 04, left subclavian placed December 04 Code Status: DNR in event of cardiac arrest Disposition: ICU (2) Suspected 2019 novel coronavirus infection: (3) Metabolic encephalopathy: (4) Anemia: (5) Acute respiratory alkalosis: (6) JACQUELINE (acute kidney injury): (7) Hyperglycemia due to type 2 diabetes mellitus: (8) Sepsis: (9) Hyponatremia: (10) Hypokalemia: (11) Morbid obesity with BMI of 40.0-44.9, adult: (12) Acute renal failure (ARF): Supervising Physician Co-Signing Physician Notes I was present and assisted with the pronating process. Patient tolerated the pronating movement. The patient was evaluated during the global COVID-19 pandemic, and that diagnosis was suspected/considered upon their initial presentation. Their evaluation, treatment and testing was consistent with guidelines for patients who present with complaints or symptoms that may be related to COVID-19 History of Present Illness Reason for Consultation: Acute hypoxic respiratory failure Requesting Physician: Hector Turner Attending Physician: Hector Turner History of Present Illness History is limited by acuity of illness and concerns of COVID-19. History is largely from prior records and report from hospitalist. 64yo male with history of COPD, ongoing tobacco dependence, T2DM, obesity, ASA on CPAP - presents from home with 10-14 days of cough, worsening shortness of breath, fevers (which worsened 3-4 days ago), poor appetite, and runny nose. Patient works in the [employer] industry but has not worked of late. No recent travel. No obvious sick contacts. 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 Due to worsening respiratory distress this am he was brought to the [facility] ER. Upon arrival he was hypoxic in the 70s and placed on BIPAP for such. By report he was quite lethargic upon admission but after receiving BIPAP his mentation improved. During my admission assessment he was able to answer all of my questions but at times he was confused. Admits to not checking his blood sugars at home. After I had left his isolation room staff reported that he has an ulcer on one of his feet (per ). Allergies Allergy/AdvReac Type Severity Reaction Status Date / Time No Known Allergies Allergy Unknown Verified 12/05/19 09:58 Home Medications Home Medications Medication Instructions Recorded Confirmed Type amlodipine 10 mg tablet 10 mg PO DAILY #90 tab 04/17/19 12/05/19 History glimepiride 4 mg tablet 8 mg PO DAILY #180 tab 04/17/19 12/05/19 History lisinopril 20 2 tab PO DAILY #180 tab 04/17/19 12/05/19 History mg-hydrochlorothiazide 12.5 mg tablet atorvastatin 40 mg tablet 40 mg PO DAILY #90 tab 05/08/19 12/05/19 Rx insulin syringe-needle U-100 1 mL #100 ea 06/05/19 08/22/19 Rx 30 gauge x 1/2" linagliptin 5 mg tablet 5 mg PO DAILY #90 tab 06/05/19 12/05/19 Rx metformin 1,000 mg tablet 1,000 mg PO UD #180 tab 08/20/19 12/05/19 History insulin glargine 100 unit/mL 54 units SUBCUT QPM #5 vial 09/09/19 12/05/19 Rx subcutaneous solution Patient History Medical History Chronic obstructive pulmonary disease (Acute) Current smoker (Acute) Diabetes mellitus type II, uncontrolled (Chronic) Dysplastic nevus Gastroesophageal reflux disease (Acute) Gout (Acute) Hyperlipidemia (Chronic) Hypertension (Chronic) Obstructive sleep apnea (Chronic) Sebaceous cyst Surgical History No pertinent past surgical history Family History Mother Diabetes Father Cancer Lung cancer age 53 Aunt Colorectal cancer Denies family history of Ovarian cancer Prostate cancer Myocardial infarction Breast cancer Social History Preferred Language: Belarusian Communication Ability: Effective Visual Impairment: No Limitations Hearing Ability: Normal [employer]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 [employer] Required: No Beliefs That Will Affect Care: None marital status: Current Living Situation: Spouse Current Living Situation Comment: lives with ; no kids current occupational status: employed 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; HV[employer] Feels Safe at Home: Yes Smoking Status: Current every day smoker Tobacco Type: cigarettes ; Cigarettes Per Day: does not know, recently none ; Second Hand Exposure: No ; Hx Alcohol Use: Yes Hx Substance Use: No Childhood Exposure to Second-Hand Smoke: Yes Dental Care, Regularly: Yes Physical Activity Frequency: Does not Exercise Seatbelt Use: sometimes Sunscreen Use: No Review of Systems Review of Systems: All systems reviewed & are unremarkable except as noted in HPI & below Physical Exam Physical Exam: General: Obese elderly male appears older than his stated age I have reviewed the recorded vital signs Neurological: RASS score: 0, Moves all 4 extremities, Psychological: GCS 15 alert understands severity of illness Eyes: Pupils are equal, round and reactive to light, anicteric sclera. Symmetrical lids. HENT: Oropharynx Clear, moist Mucous Membranes. Neck: Supple. Symmetric. trachea midline. No thyromegaly. Cardiovascular: Normal peripheral perfusion. Distal pulses and capillary refill intact. No JVD. Respiratory: Respirations are labored, belly breathing. Breath sounds are equal and coarse Gastrointestinal: Soft. Non-distended. Lymphatic: No cervical lymphadenopathy. Musculoskeletal: No deformity. No clubbing nor cyanosis. Results & Data Results & Data ([facility]) Vital Signs (Past 12 Hours) Vital Signs Temp Pulse Resp BP Pulse Ox 12/05/19 13:52 96 H 20 88 L 12/05/19 13:47 87 103/63 98 12/05/19 13:45 98 12/05/19 13:34 98 12/05/19 13:15 37.7 C H 113 H 15 137/88 16 L 12/05/19 13:00 94 H 28 H 143/89 H 93 12/05/19 12:45 92 H 25 H 94 12/05/19 12:30 88 26 H 141/87 H 93 12/05/19 12:15 93 H 30 H 94 12/05/19 12:00 94 H 28 H 149/94 H 95 12/05/19 11:45 92 H 23 96 12/05/19 11:33 93 H 30 H 132/77 95 12/05/19 11:31 96 H 29 H 94 12/05/19 11:30 96 H 19 97 12/05/19 11:15 94 H 24 188/111 H 96 12/05/19 11:00 94 H 31 H 157/107 H 94 12/05/19 10:45 92 H 21 172/92 H 93 12/05/19 10:30 94 H 30 H 154/119 H 93 12/05/19 10:16 96 H 33 H 190/98 H 94 12/05/19 10:15 97 H 30 H 98 12/05/19 10:00 95 H 26 H 119/60 94 12/05/19 09:58 99 H 26 H 95 12/05/19 09:45 98 H 31 H 120/59 L 93 12/05/19 09:40 102 H 19 87 L 12/05/19 09:30 100 H 15 129/70 86 L 12/05/19 09:23 102 H 19 130/70 87 L 12/05/19 09:06 37.7 C H 101 H 28 H 119/70 72 L Laboratory Results 12/05/19 12/05/19 12/05/19 Range/Units 14:46 10:08 09:30 WBC (4.8-10.8) K/uL RBC (4.7-6.1) M/uL Hgb (14.0-18.0) g/dL Hct (42-52) % MCV (80-100) fL MCH (25-34) pg MCHC (32-36) g/dL RDW Std Deviation (36.4-46.3) fL RDW Coeff of Josué (11.5-14.5) % Plt Count (130-400) K/uL MPV (7.4-10.4) fL Immature Gran % (Auto) % Neut % (Auto) % Lymph % (Auto) % Rapides % (Auto) % Eos % (Auto) % Baso % (Auto) % Immature Gran # (Auto) (0.00-0.02) K/uL Neut # (Auto) (1.4-6.5) K/uL Lymph # (Auto) (1.2-3.4) K/uL Rapides # (Auto) (0.11-0.59) K/uL Eos # (Auto) (0-0.5) K/uL Baso # (Auto) (0-0.2) K/uL Absolute Nucleated RBC (0-0) K/uL Nucleated RBC % (auto) % RBC Morphology PT (9.0-12.0) Seconds INR (0.9-1.1) APTT (21.0-31.0) Seconds PTT Ratio D-Dimer (0-500) ug/L FEU ABG pH 7.49 H (7.35-7.45) ABG pCO2 29 L (35-46) mmHg ABG pO2 67 L (80-95) mmHg ABG HCO3 22 (19-24) mmol/L ABG O2 Saturation 94.1 (90-95) % ABG Base Excess -0.6 (-9-1.8) mEq/L Garett Test Pos (Pos) Barometric Pressure 729.9 mm/Hg Oxygen Given 100% Sodium (136-145) mmol/L Potassium (3.5-5.1) mmol/L Chloride (98-107) mmol/L Carbon Dioxide (21-32) mmol/L Anion Gap (3-11) BUN (7-18) mg/dl Creatinine (0.6-1.4) mg/dl Est Cr Clr Drug Dosing ml/min Est GFR ( Amer) Est GFR (Non-Af Amer) BUN/Creatinine Ratio (10-20) Glucose (70-99) mg/dl Calcium (8.5-10.1) mg/dl Total Bilirubin (0.2-1) mg/dl AST (15-37) U/L ALT (12-78) U/L Alkaline Phosphatase (45-117) U/L Lactate Dehydrogenase 755 H (87-241) U/L CK-MB (CK-2) (0.5-3.6) ng/ml Troponin I (0-0.045) ng/ml NT-Pro-B Natriuret Pep (0-900) pg/ml Total Protein (6.4-8.2) gm/dl Albumin (3.4-5.0) gm/dl Globulin (2.5-4.0) gm/dl Albumin/Globulin Ratio (0.9-2) Adenovirus (PCR) (NotDetected) B. pertussis DNA (PCR) (NotDetected) B.parapertussis DNA PCR (NotDetected) C. pneumoniae DNA (PCR) (NotDetected) Coronavirus (PCR) Coronavirus OC43 (PCR) (NotDetected) Coronavirus HKU1 (PCR) (NotDetected) Coronavirus 229E (PCR) (NotDetected) COVID-19 Pt Symptomatic COVID-19 Source Coronavirus NL63 (PCR) (NotDetected) Hepatitis C Ab Screen Neg (Neg) Human Metapneumovir PCR (NotDetected) Influenza Type A (PCR) Influenza Type B (PCR) M. pneumoniae (PCR) (NotDetected) Parainfluenza 1 (PCR) (NotDetected) Parainfluenza 2 (PCR) (NotDetected) Parainfluenza 3 (PCR) (NotDetected) Parainfluenza 4 (PCR) (NotDetected) RSV (PCR) (NotDetected) Entero/Rhino (PCR) (NotDetected) SARS Virus RNA (PCR) SARS-CoV-2 RNA (RT-PCR) 12/05/19 12/05/19 12/05/19 Range/Units 09:30 09:30 09:30 WBC (4.8-10.8) K/uL RBC (4.7-6.1) M/uL Hgb (14.0-18.0) g/dL Hct (42-52) % MCV (80-100) fL MCH (25-34) pg MCHC (32-36) g/dL RDW Std Deviation (36.4-46.3) fL RDW Coeff of Josué (11.5-14.5) % Plt Count (130-400) K/uL MPV (7.4-10.4) fL Immature Gran % (Auto) % Neut % (Auto) % Lymph % (Auto) % Rapides % (Auto) % Eos % (Auto) % Baso % (Auto) % Immature Gran # (Auto) (0.00-0.02) K/uL Neut # (Auto) (1.4-6.5) K/uL Lymph # (Auto) (1.2-3.4) K/uL Rapides # (Auto) (0.11-0.59) K/uL Eos # (Auto) (0-0.5) K/uL Baso # (Auto) (0-0.2) K/uL Absolute Nucleated RBC (0-0) K/uL Nucleated RBC % (auto) % RBC Morphology PT (9.0-12.0) Seconds INR (0.9-1.1) APTT (21.0-31.0) Seconds PTT Ratio D-Dimer (0-500) ug/L FEU ABG pH (7.35-7.45) ABG pCO2 (35-46) mmHg ABG pO2 (80-95) mmHg ABG HCO3 (19-24) mmol/L ABG O2 Saturation (90-95) % ABG Base Excess (-9-1.8) mEq/L Garett Test (Pos) Barometric Pressure mm/Hg Oxygen Given Sodium (136-145) mmol/L Potassium (3.5-5.1) mmol/L Chloride (98-107) mmol/L Carbon Dioxide (21-32) mmol/L Anion Gap (3-11) BUN (7-18) mg/dl Creatinine (0.6-1.4) mg/dl Est Cr Clr Drug Dosing ml/min Est GFR ( Amer) Est GFR (Non-Af Amer) BUN/Creatinine Ratio (10-20) Glucose (70-99) mg/dl Calcium (8.5-10.1) mg/dl Total Bilirubin (0.2-1) mg/dl AST (15-37) U/L ALT (12-78) U/L Alkaline Phosphatase (45-117) U/L Lactate Dehydrogenase (87-241) U/L CK-MB (CK-2) (0.5-3.6) ng/ml Troponin I (0-0.045) ng/ml NT-Pro-B Natriuret Pep (0-900) pg/ml Total Protein (6.4-8.2) gm/dl Albumin (3.4-5.0) gm/dl Globulin (2.5-4.0) gm/dl Albumin/Globulin Ratio (0.9-2) Adenovirus (PCR) Not Detected (NotDetected) B. pertussis DNA (PCR) Not Detected (NotDetected) B.parapertussis DNA PCR Not Detected (NotDetected) C. pneumoniae DNA (PCR) Not Detected (NotDetected) Coronavirus (PCR) Pending Coronavirus OC43 (PCR) Not Detected (NotDetected) Coronavirus HKU1 (PCR) Not Detected (NotDetected) Coronavirus 229E (PCR) Not Detected (NotDetected) COVID-19 Pt Symptomatic Pending COVID-19 Source Pending Coronavirus NL63 (PCR) Not Detected (NotDetected) Hepatitis C Ab Screen (Neg) Human Metapneumovir PCR Not Detected (NotDetected) Influenza Type A (PCR) Not Detected Cancelled Influenza Type B (PCR) Not Detected Cancelled M. pneumoniae (PCR) Not Detected (NotDetected) Parainfluenza 1 (PCR) Not Detected (NotDetected) Parainfluenza 2 (PCR) Not Detected (NotDetected) Parainfluenza 3 (PCR) Not Detected (NotDetected) Parainfluenza 4 (PCR) Not Detected (NotDetected) RSV (PCR) Not Detected (NotDetected) Entero/Rhino (PCR) Not Detected (NotDetected) SARS Virus RNA (PCR) Pending SARS-CoV-2 RNA (RT-PCR) Pending 12/05/19 12/05/19 12/05/19 Range/Units 09:30 09:30 09:30 WBC 10.37 (4.8-10.8) K/uL RBC 4.53 L (4.7-6.1) M/uL Hgb 13.5 L (14.0-18.0) g/dL Hct 38.7 L (42-52) % MCV 85.4 (80-100) fL MCH 29.8 (25-34) pg MCHC 34.9 (32-36) g/dL RDW Std Deviation 40.7 (36.4-46.3) fL RDW Coeff of Josué 13.0 (11.5-14.5) % Plt Count 330 (130-400) K/uL MPV 9.9 (7.4-10.4) fL Immature Gran % (Auto) 0.6 % Neut % (Auto) 94.6 % Lymph % (Auto) 3.3 % Rapides % (Auto) 1.4 % Eos % (Auto) 0.0 % Baso % (Auto) 0.1 % Immature Gran # (Auto) 0.06 H (0.00-0.02) K/uL Neut # (Auto) 9.82 H (1.4-6.5) K/uL Lymph # (Auto) 0.34 L (1.2-3.4) K/uL Rapides # (Auto) 0.14 (0.11-0.59) K/uL Eos # (Auto) 0.00 (0-0.5) K/uL Baso # (Auto) 0.01 (0-0.2) K/uL Absolute Nucleated RBC 0.03 H (0-0) K/uL Nucleated RBC % (auto) 0.3 % RBC Morphology Unremarkable PT 10.6 (9.0-12.0) Seconds INR 1.0 (0.9-1.1) APTT 28.9 (21.0-31.0) Seconds PTT Ratio 1.0 D-Dimer 2280 H* (0-500) ug/L FEU ABG pH (7.35-7.45) ABG pCO2 (35-46) mmHg ABG pO2 (80-95) mmHg ABG HCO3 (19-24) mmol/L ABG O2 Saturation (90-95) % ABG Base Excess (-9-1.8) mEq/L Garett Test (Pos) Barometric Pressure mm/Hg Oxygen Given Sodium 130 L (136-145) mmol/L Potassium 3.3 L (3.5-5.1) mmol/L Chloride 95 L (98-107) mmol/L Carbon Dioxide 23 (21-32) mmol/L Anion Gap 12.0 H (3-11) BUN 56 H (7-18) mg/dl Creatinine 2.69 H (0.6-1.4) mg/dl Est Cr Clr Drug Dosing 31.8 ml/min Est GFR ( Amer) 27.4 Est GFR (Non-Af Amer) 23.6 BUN/Creatinine Ratio 20.9 H (10-20) Glucose 261 H (70-99) mg/dl Calcium 8.0 L (8.5-10.1) mg/dl Total Bilirubin 0.5 (0.2-1) mg/dl AST 93 H (15-37) U/L ALT 49 (12-78) U/L Alkaline Phosphatase 103 (45-117) U/L Lactate Dehydrogenase (87-241) U/L CK-MB (CK-2) 5.8 H (0.5-3.6) ng/ml Troponin I 0.037 (0-0.045) ng/ml NT-Pro-B Natriuret Pep 275 (0-900) pg/ml Total Protein 7.3 (6.4-8.2) gm/dl Albumin 2.0 L (3.4-5.0) gm/dl Globulin 5.3 H (2.5-4.0) gm/dl Albumin/Globulin Ratio 0.4 L (0.9-2) Adenovirus (PCR) (NotDetected) B. pertussis DNA (PCR) (NotDetected) B.parapertussis DNA PCR (NotDetected) C. pneumoniae DNA (PCR) (NotDetected) Coronavirus (PCR) Coronavirus OC43 (PCR) (NotDetected) Coronavirus HKU1 (PCR) (NotDetected) Coronavirus 229E (PCR) (NotDetected) COVID-19 Pt Symptomatic COVID-19 Source Coronavirus NL63 (PCR) (NotDetected) Hepatitis C Ab Screen (Neg) Human Metapneumovir PCR (NotDetected) Influenza Type A (PCR) Influenza Type B (PCR) M. pneumoniae (PCR) (NotDetected) Parainfluenza 1 (PCR) (NotDetected) Parainfluenza 2 (PCR) (NotDetected) Parainfluenza 3 (PCR) (NotDetected) Parainfluenza 4 (PCR) (NotDetected) RSV (PCR) (NotDetected) Entero/Rhino (PCR) (NotDetected) SARS Virus RNA (PCR) SARS-CoV-2 RNA (RT-PCR) Diagnostic Findings I have reviewed the chest x-ray, endotracheal tube in place, NG tube below the diaphragm. CVC position noted. Coding Level of Care Code Critical Care ea addt'l 30 min Diagnoses Acute respiratory failure with hypoxia J96.01 Suspected 2019 novel coronavirus infection R68.89 Metabolic encephalopathy G93.41 Anemia D64.9 Acute respiratory alkalosis E87.3 JACQUELINE (acute kidney injury) N17.9 Hyperglycemia due to type 2 diabetes mellitus E11.65 Sepsis A41.9 Hyponatremia E87.1 Hypokalemia E87.6 Morbid obesity with BMI of 40.0-44.9, adult E66.01; Z68.41 Acute renal failure (ARF) N17.9 Acute renal failure type: unspecified Time Spent (min) 120 Comment I have personally spent 120 minutes of critical care time in the direct management of this patient. This is a life/limb threatening event. This includes time spent evaluating patient, direct bedside care, chart review, plac ing orders, interpretation of diagnostic studies, discussion with consultants, patient, and/or family members regarding treatment decisions, as well as other required patient management activities. This time is exclusive of all separately billable procedures, and teaching time and separate from and in addition to any other critical care service time. (1) Acute renal failure (ARF) Acute renal failure type: unspecified Qualified Code(s): N17.9 - Acute kidney failure, unspecified
[2019-12-05] MEDS ORDERED: DEXTROSE 50% 50 ML SYRINGE IV PRN (17:30)
[2019-12-05] MEDS ORDERED: CARBOHYDRATES FOR HYPOGLYCEMIA PO PRN (17:30)
[2019-12-05] MEDS ORDERED: GLUCAGON FOR INJ 1 MG VIAL IM PRN (17:30)
[2019-12-05] MEDS ORDERED: GLUCOSE 40% GEL 15 GM TUBE PO PRN (17:30)
[2019-12-05] MEDS ORDERED: GLUCOSE 10 TABS/TUBE PO PRN (17:30)
[2019-12-05] MEDS: ACETAMINOPHEN 1,000 MG/100 ML VIAL IV PRN (18:13)
[2019-12-05 18:16] LABS: iSTAT Art Bld Gas pCO2 Correct 40 mmHg (35-46); iSTAT Arterial Blood Gas HCO3 24 meg/L (19-24); iSTAT Arterial Blood Gas pCO2 38 mmHg (35-46); iSTAT Arterial Blood Gas pH 7.41 (7.35-7.45); iSTAT Arterial Blood Gas pO2 68 mmHg (80-95); iSTAT Arterial Blood Gas pO2 C 74; iSTAT Carbon Dioxide 25 mmol/L (24-31); iSTAT Hematocrit 30 % (42-52); iSTAT Hemoglobin 10.2 g/dl (14.0-18.0); iSTAT Potassium 3.7 mmol/L (3.3-5.0); iSTAT Site Art Line; iSTAT Sodium 129 mmol/L (135-144)
[2019-12-05 18:20] LABS: Appearance Urine Cloudy (Clear); Bacteria Urine Automated Negative (Negative); Bilirubin Urine Negative (Negative); Blood Urine 3+ (Negative); Color Urine Yellow; Epithelial Cell Urine Auto >30 /lpf (0-5); Glucose Urine UA 2+ (Negative); Ketones Urine Negative (Negative); Leukocyte Esterase Urine Negative (Negative); Nitrite Urine Negative (Negative); Protein Urine 3+ (Negative); Specific Gravity Urine 1.028 (1.000-1.030); Urobilinogen Urine Negative (Negative)
[2019-12-05] MEDS: HEPARIN SOD 5,000 UNIT/0.5 ML VIAL SQ SCH (20:02)
[2019-12-05] MEDS ORDERED: INSULIN GLARGINE SOLOSTAR 100 UNITS/ML 3 ML PEN SC SCH (21:00)
[2019-12-05] MEDS: CEFEPIME 2,000 MG in SYRINGE 7.5 ML IV SCH (23:37)
[2019-12-05] MEDS: DOXYCYCLINE HYCLATE 100 MG in DEXTROSE 5% 100 ML IV SCH (23:37)
[2019-12-06] MEDS: FENTANYL BOLUS FROM BAG IV PRN (00:25)
[2019-12-06] MEDS: MIDAZOLAM BOLUS FROM BAG IV PRN ×2 (01:09→08:45)
[2019-12-06] MEDS: ACETAMINOPHEN 1,000 MG/100 ML VIAL IV PRN ×3 (02:04→20:42)
[2019-12-06] MEDS: LINEZOLID 600 MG/300 ML BAG IV SCH (02:04)
[2019-12-06] MEDS ORDERED: STAT IV Infusion **Titration per Protocol STA (03:37)
[2019-12-06] MEDS: NOREPINEPHRINE BIT INJ 8 MG in DEXTROSE 5% 500 ML IV SCH ×2 (03:49→22:42)
[2019-12-06 04:29] LABS: Base Excess ABG -0.2 mEq/L (-9-1.8); HCO3 ABG 24 mmol/L (19-24); Oxygen Saturation ABG 97.8 % (90-95); PCO2 ABG 39 mmHg (35-46); PO2 ABG 101 mmHg (80-95); pH ABG 7.41 (7.35-7.45)
[2019-12-06 04:30] LABS: Partial Thromboplastin Ratio 1.2; Partial Thromboplastin Time 33.1 Seconds (21.0-31.0); Prothrombin Time 10.9 Seconds (9.0-12.0)
[2019-12-06 04:33] LABS: Hematocrit (blood only) 31.4 % (42-52); Hemoglobin 10.6 g/dL (14.0-18.0); Immature Granulocytes # (auto) 0.08 K/uL (0.00-0.02); Lymphocytes # (auto) 0.49 K/uL (1.2-3.4); Lymphocytes % (auto) 6.2 %; Mean Corpuscular Hgb Conc 33.8 g/dL (32-36); Mean Corpuscular Volume 85.8 fL (80-100); Mean Platelet Volume 9.3 fL (7.4-10.4); Monocytes # (auto) 0.13 K/uL (0.11-0.59); Monocytes % (auto) 1.6 %; Neutrophils # (auto) 7.22 K/uL (1.4-6.5); Neutrophils % (auto) 91.2 %; Platelet Count 282 K/uL (130-400); RDW Coefficient of Variation 13.1 % (11.5-14.5); RDW Standard Deviation 41.2 fL (36.4-46.3); Red Blood Count 3.66 M/uL (4.7-6.1); White Blood Count 7.92 K/uL (4.8-10.8)
[2019-12-06 04:38] LABS: Albumin Level 1.4 gm/dl (3.4-5.0); BUN Creatinine Ratio 24.1 (10-20); Creatinine Clr Calc Pharmacy 33.3 ml/min; Est GFR (African American) 28.9; Est GFR (Non-African American) 24.9; Potassium 3.4 mmol/L (3.5-5.1)
[2019-12-06 04:51] LABS: Bilirubin Direct 0.1 mg/dl (0-0.2); Bilirubin,Total 0.3 mg/dl (0.2-1); Phosphorus 3.4 mg/dl (2.5-4.9); Total Protein 5.5 gm/dl (6.4-8.2)
[2019-12-06 05:00] LABS: Allen Test POS (Pos)
[2019-12-06 05:49] LABS: Estimated Average Glucose 223 mg/dl; Hemoglobin A1C 9.4 % (4.5-5.6)
[2019-12-06] MEDS: VECURONIUM BROMIDE 10 MG VIAL IV PRN (05:55)
[2019-12-06] MEDS ORDERED: FAMOTIDINE 20 MG in SYRINGE 3 ML IV SCH (08:00)
[2019-12-06 08:44] LABS: iSTAT Art Bld Gas pCO2 Correct 55 mmHg (35-46); iSTAT Art Bld Gas pH Corrected 7.285 (7.35-7.45); iSTAT Arterial Blood Gas HCO3 26 meg/L (19-24); iSTAT Arterial Blood Gas pCO2 51 mmHg (35-46); iSTAT Arterial Blood Gas pH 7.31 (7.35-7.45); iSTAT Arterial Blood Gas pO2 76 mmHg (80-95); iSTAT Arterial Blood Gas pO2 C 85; iSTAT Carbon Dioxide 27 mmol/L (24-31); iSTAT Hematocrit 34 % (42-52); iSTAT Hemoglobin 11.6 g/dl (14.0-18.0); iSTAT Potassium 3.6 mmol/L (3.3-5.0); iSTAT Site Art Line; iSTAT Sodium 131 mmol/L (135-144)
[2019-12-06] MEDS: HEPARIN SOD 5,000 UNIT/0.5 ML VIAL SQ SCH ×2 (09:09→20:06)
--- NOTE | 2019-12-06 09:12 | XRay Report ---
XR chest 1V portable CLINICAL HISTORY: Respiratory failure COMPARISON STUDY: December 05, 2019 FINDINGS: The heart is enlarged. There is a left subclavian central venous catheter projected over th e innominate vein junction to the right of the trachea. There is an endotracheal tube positioned 6.5 cm above the isra. There is a nasogastric tube within the stomach. There are subtle bilateral pulmo nary airspace opacities. There are no significant pleural effusions.[ IMPRESSION: 1. Cardiomegaly and persistent subtle bilateral pulmonary airspace opacities. 2. Endotracheal tube 6.5 cm above the isra. ACT 112: Negative or not required by law. Electronically signed by: Rob Honeycutt M.D. 12/06/2019 9:11 AM
[2019-12-06] MEDS: MIDAZOLAM HCL 125 MG/250 ML BAG IV SCH ×2 (09:21→20:43)
[2019-12-06] MEDS: fentaNYL DRIP 1,250 MCG/250 ML BAG IV SCH ×3 (09:21→20:44)
--- NOTE | 2019-12-06 10:24 | Critical Care Progress Note ---
Date of Service December 06, 2019 Assessment & Plan (1) Acute respiratory failure with hypoxia: Reason Critically Ill: 64-year-old male with acute hypoxic respiratory failure presumptively secondary to 2019 not well coronavirus PLAN: Neuro: Metabolic encephalopathy -Improved with improved oxygenation Sedatives and neuromuscular blockade: -Deep sedation with fentanyl and Versed, vecuronium as needed bolus Resp: Acute hypoxic respiratory failure Acute respiratory alkalosis COPD Current tobacco use Obstructive sleep apnea Severe acute respiratory distress syndrome: PF ratio: 152 -Following guidelines patient was emergently intubated. -Continue broad-spectrum antibiotics: Linezolid, doxycycline, cefepime -Patient returned to supine position this morning -Current settings respiratory rate 20, tidal volume 450, PEEP 20, FiO2 50 -Recently changed PEEP to 18 -Peaks and plateaus are unchanged from supine and prone position. -At this time the patient appears to be prone unresponsive, no significant improvement in oxygenation and worsening PCO2 -Patient is appearing to maintain his state of oxygen saturation in the supine position -Given these findings I do not believe additional proning to be beneficial for this patient. -Vecuronium as needed Endotracheal tube was advanced 2 cm given chest x-ray findings CV: Elevated CK-MB -COVID-19 is associated with myocarditis: Troponin within normal limits Fluids/Renal: Acute kidney injury -Judicious use of IV fluids per guidelines -Normosol at 50 -500 cc bolus today ID: COVID testing pending blood cultures pending -Sputum culture: Scant normal monie -MRSA swab negative, scant normal monie on sputum will discontinue Linezolid GI/Nutrition: N.p.o. Morbid obesity: BMI 37 Heme: Anemia -Suspect viral bone marrow suppression -Type O- DVT prophylaxis: Heparin 5000 twice daily Endocrine: ICU hyperglycemia protocol -Lantus 20 units nightly -Lantus range being adjusted by pharmacy Vascular access: Right arterial line placed December 04, left subclavian placed December 04 Code Status: DNR in event of cardiac arrest Disposition: ICU (2) Suspected 2019 novel coronavirus infection: (3) Metabolic encephalopathy: (4) Anemia: (5) Acute respiratory alkalosis: (6) JACQUELINE (acute kidney injury): (7) Hyperglycemia due to type 2 diabetes mellitus: (8) Sepsis: (9) Hyponatremia: (10) Hypokalemia: (11) Morbid obesity with BMI of 40.0-44.9, adult: (12) Acute renal failure (ARF): Admission and Anticipated Discharge Date Admission Date: December 05, 2019 Supervising Physician Co-Signing Physician Notes I was present and assisted with the pronating process. Patient tolerated the pronating movement. The patient was evaluated during the global COVID-19 pandemic, and that diagnosis was suspected/considered upon their initial presentation. Their evaluation, treatment and testing was consistent with guidelines for patients who present with complaints or symptoms that may be related to COVID-19 Subjective No overnight events mild increase in ventilator settings Review of Systems Review of Systems: Unobtainable due to endotracheal tube Physical Exam Physical Exam: General: Heavy sedation. nontoxic. Skin: Warm, dry, Head: Atraumatic Ears, nose, mouth and throat: Obscured by endotracheal tube Cardiovascular: Normal peripheral perfusion Respiratory: no respiratory distress Gastrointestinal: Non distended Musculoskeletal: No deformity Results & Data Results & Data ([facility]) Vital Signs (Past 12 Hours) Vital Signs Pulse Resp BP Pulse Ox 12/06/19 08:51 24 93 12/06/19 08:00 86 12/06/19 07:05 86 100/60 95 12/06/19 06:45 82 20 105/64 98 12/06/19 06:36 80 108/62 97 12/06/19 06:00 73 104/60 94 12/06/19 05:05 72 101/60 94 12/06/19 05:00 73 96/57 L 93 12/06/19 04:35 75 96/57 L 93 12/06/19 04:05 77 95/59 L 94 12/06/19 04:00 78 94 12/06/19 03:50 84 20 95 12/06/19 03:36 80 98 12/06/19 03:35 82 78/51 L 91 12/06/19 03:00 78 78/51 L 97 12/06/19 02:00 83 91/60 L 97 12/06/19 01:00 86 98/67 L 96 12/06/19 00:00 83 96/58 L 93 12/05/19 23:55 83 27 H 93 12/05/19 23:00 81 96 Laboratory Results 12/06/19 12/06/19 12/06/19 Range/Units 08:06 04:07 04:07 WBC (4.8-10.8) K/uL RBC (4.7-6.1) M/uL Hgb (14.0-18.0) g/dL POC Hgb 11.6 L (14.0-18.0) g/dl Hct (42-52) % POC Hct 34 L (42-52) % MCV (80-100) fL MCH (25-34) pg MCHC (32-36) g/dL RDW Std Deviation (36.4-46.3) fL RDW Coeff of Josué (11.5-14.5) % Plt Count (130-400) K/uL MPV (7.4-10.4) fL Immature Gran % (Auto) % Neut % (Auto) % Lymph % (Auto) % [place] % (Auto) % Eos % (Auto) % Baso % (Auto) % Immature Gran # (Auto) (0.00-0.02) K/uL Neut # (Auto) (1.4-6.5) K/uL Lymph # (Auto) (1.2-3.4) K/uL [place] # (Auto) (0.11-0.59) K/uL Eos # (Auto) (0-0.5) K/uL Baso # (Auto) (0-0.2) K/uL RBC Morphology PT (9.0-12.0) Seconds INR (0.9-1.1) APTT (21.0-31.0) Seconds PTT Ratio D-Dimer (0-500) ug/L FEU Sample Site Art Line POC pH 7.31 L (7.35-7.45) POC pCO2 51 H (35-46) mmHg POC pO2 76 L (80-95) mmHg POC HCO3 26 H (19-24) vivi/L POC Total CO2 27 (24-31) mmol/L POC Base Excess -1.0 (-9-1.8) vivi/L ABG pH 7.41 (7.35-7.45) ABG pH (Temp Correct) 7.285 L (7.35-7.45) ABG pCO2 39 (35-46) mmHg ABG pCO2 (Temp Corrct 55 H (35-46) mmHg ABG pO2 101 H (80-95) mmHg POC ABG pO2 at Pt Temp 85 ABG HCO3 24 (19-24) mmol/L ABG O2 Saturation 97.8 H (90-95) % ABG Base Excess -0.2 (-9-1.8) mEq/L Garett Test NA POS (Pos) Barometric Pressure 728.3 mm/Hg Oxygen Given 50 FIO2 O2 Delivery Device Ventilator POC O2 Rate 20 Minute Ventilation 8 Tidal Volume 450 PEEP 20 POC Sodium 131 L (135-144) mmol/L Sodium (136-145) mmol/L POC Potassium 3.6 (3.3-5.0) mmol/L Potassium (3.5-5.1) mmol/L Chloride (98-107) mmol/L Carbon Dioxide (21-32) mmol/L Anion Gap (3-11) BUN (7-18) mg/dl Creatinine (0.6-1.4) mg/dl Est Cr Clr Drug Dosing ml/min Est GFR ( Amer) Est GFR (Non-Af Amer) BUN/Creatinine Ratio (10-20) Glucose (70-99) mg/dl POC Glucose (70-99) mg/dl Estimat Average Glucose mg/dl Hemoglobin A1c (4.5-5.6) % Calcium (8.5-10.1) mg/dl Phosphorus (2.5-4.9) mg/dl Magnesium (1.8-2.4) mg/dl Total Bilirubin (0.2-1) mg/dl Direct Bilirubin (0-0.2) mg/dl AST (15-37) U/L ALT (12-78) U/L Alkaline Phosphatase (45-117) U/L Lactate Dehydrogenase (87-241) U/L Total Protein (6.4-8.2) gm/dl Albumin (3.4-5.0) gm/dl Lipase (73-393) U/L Procalcitonin (0-0.5) ng/ml Urine Color Urine Appearance (Clear) Urine pH (4.5-7.5) Ur Specific Tye (1.000-1.030) Urine Protein (Negative) Urine Glucose (UA) (Negative) Urine Ketones (Negative) Urine Blood (Negative) Urine Nitrite (Negative) Urine Bilirubin (Negative) Urine Urobilinogen (Negative) Ur Leukocyte Esterase (Negative) Urine WBC (Auto) (0-5) /hpf Urine RBC (Auto) (0-4) /hpf U Hyaline Cast (Auto) (0-5) /lpf U Epithel Cells (Auto) (0-5) /lpf Urine Bacteria (Auto) (Negative) Ur Renal Epithelial Cell Granular Casts (0) /lpf Urine Yeast Nasal Screen MRSA (PCR) (Negative) Adenovirus (PCR) (NotDetected) B. pertussis DNA (PCR) (NotDetected) B.parapertussis DNA PCR (NotDetected) C. pneumoniae DNA (PCR) (NotDetected) Coronavirus OC43 (PCR) (NotDetected) Coronavirus HKU1 (PCR) (NotDetected) Coronavirus 229E (PCR) (NotDetected) Nasopharyn COVID-19 PCR Sputum COVID-19 PCR Coronavirus NL63 (PCR) (NotDetected) Hepatitis C Ab Screen (Neg) Human Metapneumovir PCR (NotDetected) Influenza Type A (PCR) (NotDetected) Influenza Type B (PCR) (NotDetected) M. pneumoniae (PCR) (NotDetected) Parainfluenza 1 (PCR) (NotDetected) Parainfluenza 2 (PCR) (NotDetected) Parainfluenza 3 (PCR) (NotDetected) Parainfluenza 4 (PCR) (NotDetected) RSV (PCR) (NotDetected) Entero/Rhino (PCR) (NotDetected) Blood Type O Negative Antibody Screen NEGATIVE 12/06/19 12/06/19 12/06/19 Range/Units 04:07 04:06 04:06 WBC 7.92 (4.8-10.8) K/uL RBC 3.66 L (4.7-6.1) M/uL Hgb 10.6 L (14.0-18.0) g/dL POC Hgb (14.0-18.0) g/dl Hct 31.4 L (42-52) % POC Hct (42-52) % MCV 85.8 (80-100) fL MCH 29.0 (25-34) pg MCHC 33.8 (32-36) g/dL RDW Std Deviation 41.2 (36.4-46.3) fL RDW Coeff of Josué 13.1 (11.5-14.5) % Plt Count 282 (130-400) K/uL MPV 9.3 (7.4-10.4) fL Immature Gran % (Auto) 1.0 % Neut % (Auto) 91.2 % Lymph % (Auto) 6.2 % Larimer % (Auto) 1.6 % Eos % (Auto) 0.0 % Baso % (Auto) 0.0 % Immature Gran # (Auto) 0.08 H (0.00-0.02) K/uL Neut # (Auto) 7.22 H (1.4-6.5) K/uL Lymph # (Auto) 0.49 L (1.2-3.4) K/uL [place] # (Auto) 0.13 (0.11-0.59) K/uL Eos # (Auto) 0.00 (0-0.5) K/uL Baso # (Auto) 0.00 (0-0.2) K/uL RBC Morphology PT (9.0-12.0) Seconds INR (0.9-1.1) APTT (21.0-31.0) Seconds PTT Ratio D-Dimer (0-500) ug/L FEU Sample Site POC pH (7.35-7.45) POC pCO2 (35-46) mmHg POC pO2 (80-95) mmHg POC HCO3 (19-24) vivi/L POC Total CO2 (24-31) mmol/L POC Base Excess (-9-1.8) vivi/L ABG pH (7.35-7.45) ABG pH (Temp Correct) (7.35-7.45) ABG pCO2 (35-46) mmHg ABG pCO2 (Temp Corrct (35-46) mmHg ABG pO2 (80-95) mmHg POC ABG pO2 at Pt Temp ABG HCO3 (19-24) mmol/L ABG O2 Saturation (90-95) % ABG Base Excess (-9-1.8) mEq/L Garett Test (Pos) Barometric Pressure mm/Hg Oxygen Given O2 Delivery Device POC O2 Rate Minute Ventilation Tidal Volume PEEP POC Sodium (135-144) mmol/L Sodium (136-145) mmol/L POC Potassium (3.3-5.0) mmol/L Potassium (3.5-5.1) mmol/L Chloride (98-107) mmol/L Carbon Dioxide (21-32) mmol/L Anion Gap (3-11) BUN (7-18) mg/dl Creatinine (0.6-1.4) mg/dl Est Cr Clr Drug Dosing ml/min Est GFR ( Amer) Est GFR (Non-Af Amer) BUN/Creatinine Ratio (10-20) Glucose (70-99) mg/dl POC Glucose (70-99) mg/dl Estimat Average Glucose 223 mg/dl Hemoglobin A1c 9.4 H (4.5-5.6) % Calcium (8.5-10.1) mg/dl Phosphorus (2.5-4.9) mg/dl Magnesium (1.8-2.4) mg/dl Total Bilirubin (0.2-1) mg/dl Direct Bilirubin (0-0.2) mg/dl AST (15-37) U/L ALT (12-78) U/L Alkaline Phosphatase (45-117) U/L Lactate Dehydrogenase (87-241) U/L Total Protein (6.4-8.2) gm/dl Albumin (3.4-5.0) gm/dl Lipase (73-393) U/L Procalcitonin 2.89 H (0-0.5) ng/ml Urine Color Urine Appearance (Clear) Urine pH (4.5-7.5) Ur Specific Tye (1.000-1.030) Urine Protein (Negative) Urine Glucose (UA) (Negative) Urine Ketones (Negative) Urine Blood (Negative) Urine Nitrite (Negative) Urine Bilirubin (Negative) Urine Urobilinogen (Negative) Ur Leukocyte Esterase (Negative) Urine WBC (Auto) (0-5) /hpf Urine RBC (Auto) (0-4) /hpf U Hyaline Cast (Auto) (0-5) /lpf U Epithel Cells (Auto) (0-5) /lpf Urine Bacteria (Auto) (Negative) Ur Renal Epithelial Cell Granular Casts (0) /lpf Urine Yeast Nasal Screen MRSA (PCR) (Negative) Adenovirus (PCR) (NotDetected) B. pertussis DNA (PCR) (NotDetected) B.parapertussis DNA PCR (NotDetected) C. pneumoniae DNA (PCR) (NotDetected) Coronavirus OC43 (PCR) (NotDetected) Coronavirus HKU1 (PCR) (NotDetected) Coronavirus 229E (PCR) (NotDetected) Nasopharyn COVID-19 PCR Sputum COVID-19 PCR Coronavirus NL63 (PCR) (NotDetected) Hepatitis C Ab Screen (Neg) Human Metapneumovir PCR (NotDetected) Influenza Type A (PCR) (NotDetected) Influenza Type B (PCR) (NotDetected) M. pneumoniae (PCR) (NotDetected) Parainfluenza 1 (PCR) (NotDetected) Parainfluenza 2 (PCR) (NotDetected) Parainfluenza 3 (PCR) (NotDetected) Parainfluenza 4 (PCR) (NotDetected) RSV (PCR) (NotDetected) Entero/Rhino (PCR) (NotDetected) Blood Type Antibody Screen 12/06/19 12/06/19 12/06/19 Range/Units 04:06 04:06 04:06 WBC (4.8-10.8) K/uL RBC (4.7-6.1) M/uL Hgb (14.0-18.0) g/dL POC Hgb (14.0-18.0) g/dl Hct (42-52) % POC Hct (42-52) % MCV (80-100) fL MCH (25-34) pg MCHC (32-36) g/dL RDW Std Deviation (36.4-46.3) fL RDW Coeff of Josué (11.5-14.5) % Plt Count (130-400) K/uL MPV (7.4-10.4) fL Immature Gran % (Auto) % Neut % (Auto) % Lymph % (Auto) % [place] % (Auto) % Eos % (Auto) % Baso % (Auto) % Immature Gran # (Auto) (0.00-0.02) K/uL Neut # (Auto) (1.4-6.5) K/uL Lymph # (Auto) (1.2-3.4) K/uL [place] # (Auto) (0.11-0.59) K/uL Eos # (Auto) (0-0.5) K/uL Baso # (Auto) (0-0.2) K/uL RBC Morphology PT 10.9 (9.0-12.0) Seconds INR 1.0 (0.9-1.1) APTT 33.1 H (21.0-31.0) Seconds PTT Ratio 1.2 D-Dimer (0-500) ug/L FEU Sample Site POC pH (7.35-7.45) POC pCO2 (35-46) mmHg POC pO2 (80-95) mmHg POC HCO3 (19-24) vivi/L POC Total CO2 (24-31) mmol/L POC Base Excess (-9-1.8) vivi/L ABG pH (7.35-7.45) ABG pH (Temp Correct) (7.35-7.45) ABG pCO2 (35-46) mmHg ABG pCO2 (Temp Corrct (35-46) mmHg ABG pO2 (80-95) mmHg POC ABG pO2 at Pt Temp ABG HCO3 (19-24) mmol/L ABG O2 Saturation (90-95) % ABG Base Excess (-9-1.8) mEq/L Garett Test (Pos) Barometric Pressure mm/Hg Oxygen Given O2 Delivery Device POC O2 Rate Minute Ventilation Tidal Volume PEEP POC Sodium (135-144) mmol/L Sodium 131 L (136-145) mmol/L POC Potassium (3.3-5.0) mmol/L Potassium 3.4 L (3.5-5.1) mmol/L Chloride 98 (98-107) mmol/L Carbon Dioxide 25 (21-32) mmol/L Anion Gap 8.0 (3-11) BUN 62 H (7-18) mg/dl Creatinine 2.57 H (0.6-1.4) mg/dl Est Cr Clr Drug Dosing 33.3 ml/min Est GFR ( Amer) 28.9 Est GFR (Non-Af Amer) 24.9 BUN/Creatinine Ratio 24.1 H (10-20) Glucose 128 H (70-99) mg/dl POC Glucose (70-99) mg/dl Estimat Average Glucose mg/dl Hemoglobin A1c (4.5-5.6) % Calcium 7.0 L (8.5-10.1) mg/dl Phosphorus 3.4 (2.5-4.9) mg/dl Magnesium 2.0 (1.8-2.4) mg/dl Total Bilirubin 0.3 (0.2-1) mg/dl Direct Bilirubin 0.1 (0-0.2) mg/dl AST 76 H (15-37) U/L ALT 41 (12-78) U/L Alkaline Phosphatase 75 (45-117) U/L Lactate Dehydrogenase 761 H (87-241) U/L Total Protein 5.5 L D (6.4-8.2) gm/dl Albumin 1.4 L (3.4-5.0) gm/dl Lipase 957 H (73-393) U/L Procalcitonin (0-0.5) ng/ml Urine Color Urine Appearance (Clear) Urine pH (4.5-7.5) Ur Specific Tye (1.000-1.030) Urine Protein (Negative) Urine Glucose (UA) (Negative) Urine Ketones (Negative) Urine Blood (Negative) Urine Nitrite (Negative) Urine Bilirubin (Negative) Urine Urobilinogen (Negative) Ur Leukocyte Esterase (Negative) Urine WBC (Auto) (0-5) /hpf Urine RBC (Auto) (0-4) /hpf U Hyaline Cast (Auto) (0-5) /lpf U Epithel Cells (Auto) (0-5) /lpf Urine Bacteria (Auto) (Negative) Ur Renal Epithelial Cell Granular Casts (0) /lpf Urine Yeast Nasal Screen MRSA (PCR) (Negative) Adenovirus (PCR) (NotDetected) B. pertussis DNA (PCR) (NotDetected) B.parapertussis DNA PCR (NotDetected) C. pneumoniae DNA (PCR) (NotDetected) Coronavirus OC43 (PCR) (NotDetected) Coronavirus HKU1 (PCR) (NotDetected) Coronavirus 229E (PCR) (NotDetected) Nasopharyn COVID-19 PCR Sputum COVID-19 PCR Coronavirus NL63 (PCR) (NotDetected) Hepatitis C Ab Screen (Neg) Human Metapneumovir PCR (NotDetected) Influenza Type A (PCR) (NotDetected) Influenza Type B (PCR) (NotDetected) M. pneumoniae (PCR) (NotDetected) Parainfluenza 1 (PCR) (NotDetected) Parainfluenza 2 (PCR) (NotDetected) Parainfluenza 3 (PCR) (NotDetected) Parainfluenza 4 (PCR) (NotDetected) RSV (PCR) (NotDetected) Entero/Rhino (PCR) (NotDetected) Blood Type Antibody Screen 12/06/19 12/05/19 12/05/19 Range/Units 00:15 Unknown 18:00 WBC (4.8-10.8) K/uL RBC (4.7-6.1) M/uL Hgb (14.0-18.0) g/dL POC Hgb 10.2 L (14.0-18.0) g/dl Hct (42-52) % POC Hct 30 L (42-52) % MCV (80-100) fL MCH (25-34) pg MCHC (32-36) g/dL RDW Std Deviation (36.4-46.3) fL RDW Coeff of Josué (11.5-14.5) % Plt Count (130-400) K/uL MPV (7.4-10.4) fL Immature Gran % (Auto) % Neut % (Auto) % Lymph % (Auto) % [place] % (Auto) % Eos % (Auto) % Baso % (Auto) % Immature Gran # (Auto) (0.00-0.02) K/uL Neut # (Auto) (1.4-6.5) K/uL Lymph # (Auto) (1.2-3.4) K/uL [place] # (Auto) (0.11-0.59) K/uL Eos # (Auto) (0-0.5) K/uL Baso # (Auto) (0-0.2) K/uL RBC Morphology PT (9.0-12.0) Seconds INR (0.9-1.1) APTT (21.0-31.0) Seconds PTT Ratio D-Dimer (0-500) ug/L FEU Sample Site Art Line POC pH 7.41 (7.35-7.45) POC pCO2 38 (35-46) mmHg POC pO2 68 L (80-95) mmHg POC HCO3 24 (19-24) vivi/L POC Total CO2 25 (24-31) mmol/L POC Base Excess -1.0 (-9-1.8) vivi/L ABG pH (7.35-7.45) ABG pH (Temp Correct) 7.390 (7.35-7.45) ABG pCO2 (35-46) mmHg ABG pCO2 (Temp Corrct 40 (35-46) mmHg ABG pO2 (80-95) mmHg POC ABG pO2 at Pt Temp 74 ABG HCO3 (19-24) mmol/L ABG O2 Saturation (90-95) % ABG Base Excess (-9-1.8) mEq/L Garett Test NA (Pos) Barometric Pressure mm/Hg Oxygen Given O2 Delivery Device Ventilator POC O2 Rate 20 Minute Ventilation 13.3 Tidal Volume 500 PEEP 20 POC Sodium 129 L (135-144) mmol/L Sodium (136-145) mmol/L POC Potassium 3.7 (3.3-5.0) mmol/L Potassium (3.5-5.1) mmol/L Chloride (98-107) mmol/L Carbon Dioxide (21-32) mmol/L Anion Gap (3-11) BUN (7-18) mg/dl Creatinine (0.6-1.4) mg/dl Est Cr Clr Drug Dosing ml/min Est GFR ( Amer) Est GFR (Non-Af Amer) BUN/Creatinine Ratio (10-20) Glucose (70-99) mg/dl POC Glucose 117 H (70-99) mg/dl Estimat Average Glucose mg/dl Hemoglobin A1c (4.5-5.6) % Calcium (8.5-10.1) mg/dl Phosphorus (2.5-4.9) mg/dl Magnesium (1.8-2.4) mg/dl Total Bilirubin (0.2-1) mg/dl Direct Bilirubin (0-0.2) mg/dl AST (15-37) U/L ALT (12-78) U/L Alkaline Phosphatase (45-117) U/L Lactate Dehydrogenase (87-241) U/L Total Protein (6.4-8.2) gm/dl Albumin (3.4-5.0) gm/dl Lipase (73-393) U/L Procalcitonin (0-0.5) ng/ml Urine Color Urine Appearance (Clear) Urine pH (4.5-7.5) Ur Specific Tye (1.000-1.030) Urine Protein (Negative) Urine Glucose (UA) (Negative) Urine Ketones (Negative) Urine Blood (Negative) Urine Nitrite (Negative) Urine Bilirubin (Negative) Urine Urobilinogen (Negative) Ur Leukocyte Esterase (Negative) Urine WBC (Auto) (0-5) /hpf Urine RBC (Auto) (0-4) /hpf U Hyaline Cast (Auto) (0-5) /lpf U Epithel Cells (Auto) (0-5) /lpf Urine Bacteria (Auto) (Negative) Ur Renal Epithelial Cell Granular Casts (0) /lpf Urine Yeast Nasal Screen MRSA (PCR) (Negative) Adenovirus (PCR) (NotDetected) B. pertussis DNA (PCR) (NotDetected) B.parapertussis DNA PCR (NotDetected) C. pneumoniae DNA (PCR) (NotDetected) Coronavirus OC43 (PCR) (NotDetected) Coronavirus HKU1 (PCR) (NotDetected) Coronavirus 229E (PCR) (NotDetected) Nasopharyn COVID-19 PCR Pending Sputum COVID-19 PCR Pending Coronavirus NL63 (PCR) (NotDetected) Hepatitis C Ab Screen (Neg) Human Metapneumovir PCR (NotDetected) Influenza Type A (PCR) (NotDetected) Influenza Type B (PCR) (NotDetected) M. pneumoniae (PCR) (NotDetected) Parainfluenza 1 (PCR) (NotDetected) Parainfluenza 2 (PCR) (NotDetected) Parainfluenza 3 (PCR) (NotDetected) Parainfluenza 4 (PCR) (NotDetected) RSV (PCR) (NotDetected) Entero/Rhino (PCR) (NotDetected) Blood Type Antibody Screen 12/05/19 12/05/19 12/05/19 Range/Units 17:45 17:30 16:35 WBC (4.8-10.8) K/uL RBC (4.7-6.1) M/uL Hgb (14.0-18.0) g/dL POC Hgb (14.0-18.0) g/dl Hct (42-52) % POC Hct (42-52) % MCV (80-100) fL MCH (25-34) pg MCHC (32-36) g/dL RDW Std Deviation (36.4-46.3) fL RDW Coeff of Josué (11.5-14.5) % Plt Count (130-400) K/uL MPV (7.4-10.4) fL Immature Gran % (Auto) % Neut % (Auto) % Lymph % (Auto) % [place] % (Auto) % Eos % (Auto) % Baso % (Auto) % Immature Gran # (Auto) (0.00-0.02) K/uL Neut # (Auto) (1.4-6.5) K/uL Lymph # (Auto) (1.2-3.4) K/uL [place] # (Auto) (0.11-0.59) K/uL Eos # (Auto) (0-0.5) K/uL Baso # (Auto) (0-0.2) K/uL RBC Morphology PT (9.0-12.0) Seconds INR (0.9-1.1) APTT (21.0-31.0) Seconds PTT Ratio D-Dimer (0-500) ug/L FEU Sample Site POC pH (7.35-7.45) POC pCO2 (35-46) mmHg POC pO2 (80-95) mmHg POC HCO3 (19-24) vivi/L POC Total CO2 (24-31) mmol/L POC Base Excess (-9-1.8) vivi/L ABG pH (7.35-7.45) ABG pH (Temp Correct) (7.35-7.45) ABG pCO2 (35-46) mmHg ABG pCO2 (Temp Corrct (35-46) mmHg ABG pO2 (80-95) mmHg POC ABG pO2 at Pt Temp ABG HCO3 (19-24) mmol/L ABG O2 Saturation (90-95) % ABG Base Excess (-9-1.8) mEq/L Garett Test (Pos) Barometric Pressure mm/Hg Oxygen Given O2 Delivery Device POC O2 Rate Minute Ventilation Tidal Volume PEEP POC Sodium (135-144) mmol/L Sodium (136-145) mmol/L POC Potassium (3.3-5.0) mmol/L Potassium (3.5-5.1) mmol/L Chloride (98-107) mmol/L Carbon Dioxide (21-32) mmol/L Anion Gap (3-11) BUN (7-18) mg/dl Creatinine (0.6-1.4) mg/dl Est Cr Clr Drug Dosing ml/min Est GFR ( Amer) Est GFR (Non-Af Amer) BUN/Creatinine Ratio (10-20) Glucose (70-99) mg/dl POC Glucose 304 H* (70-99) mg/dl Estimat Average Glucose mg/dl Hemoglobin A1c (4.5-5.6) % Calcium (8.5-10.1) mg/dl Phosphorus (2.5-4.9) mg/dl Magnesium (1.8-2.4) mg/dl Total Bilirubin (0.2-1) mg/dl Direct Bilirubin (0-0.2) mg/dl AST (15-37) U/L ALT (12-78) U/L Alkaline Phosphatase (45-117) U/L Lactate Dehydrogenase (87-241) U/L Total Protein (6.4-8.2) gm/dl Albumin (3.4-5.0) gm/dl Lipase (73-393) U/L Procalcitonin (0-0.5) ng/ml Urine Color Yellow Urine Appearance Cloudy A (Clear) Urine pH 5.0 (4.5-7.5) Ur Specific Tye 1.028 (1.000-1.030) Urine Protein 3+ H (Negative) Urine Glucose (UA) 2+ H (Negative) Urine Ketones Negative (Negative) Urine Blood 3+ H (Negative) Urine Nitrite Negative (Negative) Urine Bilirubin Negative (Negative) Urine Urobilinogen Negative (Negative) Ur Leukocyte Esterase Negative (Negative) Urine WBC (Auto) 5-10 H (0-5) /hpf Urine RBC (Auto) 10-30 H (0-4) /hpf U Hyaline Cast (Auto) 10-30 H (0-5) /lpf U Epithel Cells (Auto) >30 H (0-5) /lpf Urine Bacteria (Auto) Negative (Negative) Ur Renal Epithelial Cell Not Reportable Granular Casts 10-20 H (0) /lpf Urine Yeast Not Reportable Nasal Screen MRSA (PCR) Negative (Negative) Adenovirus (PCR) (NotDetected) B. pertussis DNA (PCR) (NotDetected) B.parapertussis DNA PCR (NotDetected) C. pneumoniae DNA (PCR) (NotDetected) Coronavirus OC43 (PCR) (NotDetected) Coronavirus HKU1 (PCR) (NotDetected) Coronavirus 229E (PCR) (NotDetected) Nasopharyn COVID-19 PCR Sputum COVID-19 PCR Coronavirus NL63 (PCR) (NotDetected) Hepatitis C Ab Screen (Neg) Human Metapneumovir PCR (NotDetected) Influenza Type A (PCR) (NotDetected) Influenza Type B (PCR) (NotDetected) M. pneumoniae (PCR) (NotDetected) Parainfluenza 1 (PCR) (NotDetected) Parainfluenza 2 (PCR) (NotDetected) Parainfluenza 3 (PCR) (NotDetected) Parainfluenza 4 (PCR) (NotDetected) RSV (PCR) (NotDetected) Entero/Rhino (PCR) (NotDetected) Blood Type Antibody Screen 12/05/19 12/05/19 12/05/19 Range/Units 14:46 10:08 09:30 WBC (4.8-10.8) K/uL RBC (4.7-6.1) M/uL Hgb (14.0-18.0) g/dL POC Hgb (14.0-18.0) g/dl Hct (42-52) % POC Hct (42-52) % MCV (80-100) fL MCH (25-34) pg MCHC (32-36) g/dL RDW Std Deviation (36.4-46.3) fL RDW Coeff of Josué (11.5-14.5) % Plt Count (130-400) K/uL MPV (7.4-10.4) fL Immature Gran % (Auto) % Neut % (Auto) % Lymph % (Auto) % [place] % (Auto) % Eos % (Auto) % Baso % (Auto) % Immature Gran # (Auto) (0.00-0.02) K/uL Neut # (Auto) (1.4-6.5) K/uL Lymph # (Auto) (1.2-3.4) K/uL [place] # (Auto) (0.11-0.59) K/uL Eos # (Auto) (0-0.5) K/uL Baso # (Auto) (0-0.2) K/uL RBC Morphology PT (9.0-12.0) Seconds INR (0.9-1.1) APTT (21.0-31.0) Seconds PTT Ratio D-Dimer (0-500) ug/L FEU Sample Site POC pH (7.35-7.45) POC pCO2 (35-46) mmHg POC pO2 (80-95) mmHg POC HCO3 (19-24) vivi/L POC Total CO2 (24-31) mmol/L POC Base Excess (-9-1.8) vivi/L ABG pH 7.49 H (7.35-7.45) ABG pH (Temp Correct) (7.35-7.45) ABG pCO2 29 L (35-46) mmHg ABG pCO2 (Temp Corrct (35-46) mmHg ABG pO2 67 L (80-95) mmHg POC ABG pO2 at Pt Temp ABG HCO3 22 (19-24) mmol/L ABG O2 Saturation 94.1 (90-95) % ABG Base Excess -0.6 (-9-1.8) mEq/L Garett Test Pos (Pos) Barometric Pressure 729.9 mm/Hg Oxygen Given 100% O2 Delivery Device POC O2 Rate Minute Ventilation Tidal Volume PEEP POC Sodium (135-144) mmol/L Sodium (136-145) mmol/L POC Potassium (3.3-5.0) mmol/L Potassium (3.5-5.1) mmol/L Chloride (98-107) mmol/L Carbon Dioxide (21-32) mmol/L Anion Gap (3-11) BUN (7-18) mg/dl Creatinine (0.6-1.4) mg/dl Est Cr Clr Drug Dosing ml/min Est GFR ( Amer) Est GFR (Non-Af Amer) BUN/Creatinine Ratio (10-20) Glucose (70-99) mg/dl POC Glucose (70-99) mg/dl Estimat Average Glucose mg/dl Hemoglobin A1c (4.5-5.6) % Calcium (8.5-10.1) mg/dl Phosphorus (2.5-4.9) mg/dl Magnesium (1.8-2.4) mg/dl Total Bilirubin (0.2-1) mg/dl Direct Bilirubin (0-0.2) mg/dl AST (15-37) U/L ALT (12-78) U/L Alkaline Phosphatase (45-117) U/L Lactate Dehydrogenase 755 H (87-241) U/L Total Protein (6.4-8.2) gm/dl Albumin (3.4-5.0) gm/dl Lipase (73-393) U/L Procalcitonin (0-0.5) ng/ml Urine Color Urine Appearance (Clear) Urine pH (4.5-7.5) Ur Specific Tye (1.000-1.030) Urine Protein (Negative) Urine Glucose (UA) (Negative) Urine Ketones (Negative) Urine Blood (Negative) Urine Nitrite (Negative) Urine Bilirubin (Negative) Urine Urobilinogen (Negative) Ur Leukocyte Esterase (Negative) Urine WBC (Auto) (0-5) /hpf Urine RBC (Auto) (0-4) /hpf U Hyaline Cast (Auto) (0-5) /lpf U Epithel Cells (Auto) (0-5) /lpf Urine Bacteria (Auto) (Negative) Ur Renal Epithelial Cell Granular Casts (0) /lpf Urine Yeast Nasal Screen MRSA (PCR) (Negative) Adenovirus (PCR) (NotDetected) B. pertussis DNA (PCR) (NotDetected) B.parapertussis DNA PCR (NotDetected) C. pneumoniae DNA (PCR) (NotDetected) Coronavirus OC43 (PCR) (NotDetected) Coronavirus HKU1 (PCR) (NotDetected) Coronavirus 229E (PCR) (NotDetected) Nasopharyn COVID-19 PCR Sputum COVID-19 PCR Coronavirus NL63 (PCR) (NotDetected) Hepatitis C Ab Screen Neg (Neg) Human Metapneumovir PCR (NotDetected) Influenza Type A (PCR) (NotDetected) Influenza Type B (PCR) (NotDetected) M. pneumoniae (PCR) (NotDetected) Parainfluenza 1 (PCR) (NotDetected) Parainfluenza 2 (PCR) (NotDetected) Parainfluenza 3 (PCR) (NotDetected) Parainfluenza 4 (PCR) (NotDetected) RSV (PCR) (NotDetected) Entero/Rhino (PCR) (NotDetected) Blood Type Antibody Screen 12/05/19 12/05/19 12/05/19 Range/Units 09:30 09:30 09:30 WBC (4.8-10.8) K/uL RBC (4.7-6.1) M/uL Hgb (14.0-18.0) g/dL POC Hgb (14.0-18.0) g/dl Hct (42-52) % POC Hct (42-52) % MCV (80-100) fL MCH (25-34) pg MCHC (32-36) g/dL RDW Std Deviation (36.4-46.3) fL RDW Coeff of Josué (11.5-14.5) % Plt Count (130-400) K/uL MPV (7.4-10.4) fL Immature Gran % (Auto) 0.6 % Neut % (Auto) 94.6 % Lymph % (Auto) 3.3 % [place] % (Auto) 1.4 % Eos % (Auto) 0.0 % Baso % (Auto) 0.1 % Immature Gran # (Auto) 0.06 H (0.00-0.02) K/uL Neut # (Auto) 9.82 H (1.4-6.5) K/uL Lymph # (Auto) 0.34 L (1.2-3.4) K/uL [place] # (Auto) 0.14 (0.11-0.59) K/uL Eos # (Auto) 0.00 (0-0.5) K/uL Baso # (Auto) 0.01 (0-0.2) K/uL RBC Morphology Unremarkable PT 10.6 (9.0-12.0) Seconds INR 1.0 (0.9-1.1) APTT 28.9 (21.0-31.0) Seconds PTT Ratio 1.0 D-Dimer 2280 H* (0-500) ug/L FEU Sample Site POC pH (7.35-7.45) POC pCO2 (35-46) mmHg POC pO2 (80-95) mmHg POC HCO3 (19-24) vivi/L POC Total CO2 (24-31) mmol/L POC Base Excess (-9-1.8) vivi/L ABG pH (7.35-7.45) ABG pH (Temp Correct) (7.35-7.45) ABG pCO2 (35-46) mmHg ABG pCO2 (Temp Corrct (35-46) mmHg ABG pO2 (80-95) mmHg POC ABG pO2 at Pt Temp ABG HCO3 (19-24) mmol/L ABG O2 Saturation (90-95) % ABG Base Excess (-9-1.8) mEq/L Garett Test (Pos) Barometric Pressure mm/Hg Oxygen Given O2 Delivery Device POC O2 Rate Minute Ventilation Tidal Volume PEEP POC Sodium (135-144) mmol/L Sodium (136-145) mmol/L POC Potassium (3.3-5.0) mmol/L Potassium (3.5-5.1) mmol/L Chloride (98-107) mmol/L Carbon Dioxide (21-32) mmol/L Anion Gap (3-11) BUN (7-18) mg/dl Creatinine (0.6-1.4) mg/dl Est Cr Clr Drug Dosing ml/min Est GFR ( Amer) Est GFR (Non-Af Amer) BUN/Creatinine Ratio (10-20) Glucose (70-99) mg/dl POC Glucose (70-99) mg/dl Estimat Average Glucose mg/dl Hemoglobin A1c (4.5-5.6) % Calcium (8.5-10.1) mg/dl Phosphorus (2.5-4.9) mg/dl Magnesium (1.8-2.4) mg/dl Total Bilirubin (0.2-1) mg/dl Direct Bilirubin (0-0.2) mg/dl AST (15-37) U/L ALT (12-78) U/L Alkaline Phosphatase (45-117) U/L Lactate Dehydrogenase (87-241) U/L Total Protein (6.4-8.2) gm/dl Albumin (3.4-5.0) gm/dl Lipase (73-393) U/L Procalcitonin (0-0.5) ng/ml Urine Color Urine Appearance (Clear) Urine pH (4.5-7.5) Ur Specific [place] (1.000-1.030) Urine Protein (Negative) Urine Glucose (UA) (Negative) Urine Ketones (Negative) Urine Blood (Negative) Urine Nitrite (Negative) Urine Bilirubin (Negative) Urine Urobilinogen (Negative) Ur Leukocyte Esterase (Negative) Urine WBC (Auto) (0-5) /hpf Urine RBC (Auto) (0-4) /hpf U Hyaline Cast (Auto) (0-5) /lpf U Epithel Cells (Auto) (0-5) /lpf Urine Bacteria (Auto) (Negative) Ur Renal Epithelial Cell Granular Casts (0) /lpf Urine Yeast Nasal Screen MRSA (PCR) (Negative) Adenovirus (PCR) Not Detected (NotDetected) B. pertussis DNA (PCR) Not Detected (NotDetected) B.parapertussis DNA PCR Not Detected (NotDetected) C. pneumoniae DNA (PCR) Not Detected (NotDetected) Coronavirus OC43 (PCR) Not Detected (NotDetected) Coronavirus HKU1 (PCR) Not Detected (NotDetected) Coronavirus 229E (PCR) Not Detected (NotDetected) Nasopharyn COVID-19 PCR Sputum COVID-19 PCR Coronavirus NL63 (PCR) Not Detected (NotDetected) Hepatitis C Ab Screen (Neg) Human Metapneumovir PCR Not Detected (NotDetected) Influenza Type A (PCR) Not Detected (NotDetected) Influenza Type B (PCR) Not Detected (NotDetected) M. pneumoniae (PCR) Not Detected (NotDetected) Parainfluenza 1 (PCR) Not Detected (NotDetected) Parainfluenza 2 (PCR) Not Detected (NotDetected) Parainfluenza 3 (PCR) Not Detected (NotDetected) Parainfluenza 4 (PCR) Not Detected (NotDetected) RSV (PCR) Not Detected (NotDetected) Entero/Rhino (PCR) Not Detected (NotDetected) Blood Type Antibody Screen Diagnostic Findings I have reviewed the chest x-ray dated 12/06/2019: Fluid and right lung fissure, endotracheal tube terminating 6.5 cm above the isra bilateral pulmonary airspace markings. Coding Level of Care Code Critical Care 1st 30-74 mins Diagnoses Acute respiratory failure with hypoxia J96.01 Suspected 2019 novel coronavirus infection R68.89 Metabolic encephalopathy G93.41 Anemia D64.9 Acute respiratory alkalosis E87.3 JACQUELINE (acute kidney injury) N17.9 Hyperglycemia due to type 2 diabetes mellitus E11.65 Sepsis A41.9 Hyponatremia E87.1 Hypokalemia E87.6 Morbid obesity with BMI of 40.0-44.9, adult E66.01; Z68.41 Acute renal failure (ARF) N17.9 Acute renal failure type: unspecified Time Spent (min) 90 Comment I have personally spent 90 minutes of critical care time in the direct management of this patient. This is a life/limb threatening event. This includes time spent evaluating patient, direct bedside care, chart review, placing orders, interpretation of diagnostic studies, discussion with consultants, patient, and/or family members regarding treatment decisions, as well as other required patient management activities. This time is exclusive of all separately billable procedures, and teaching time and separate from and in addition to any other critical care service time. (1) Acute renal failure (ARF) Acute renal failure type: unspecified Qualified Code(s): N17.9 - Acute kidney failure, unspecified
[2019-12-06] MEDS: DOXYCYCLINE HYCLATE 100 MG in DEXTROSE 5% 100 ML IV SCH (11:05)
[2019-12-06] MEDS: CEFEPIME 2,000 MG in SYRINGE 7.5 ML IV SCH (11:06)
[2019-12-06] MEDS: NORMOSOL-R 1,000 ML IV SCH (14:40)
--- NOTE | 2019-12-06 14:54 | Electrocardiogram Report ---
Test Reason : Blood Pressure : / mmHG Vent. Rate : 087 BPM Atrial Rate : 087 BPM P-R Int : 174 ms QRS Dur : 084 ms QT Int : 400 ms P-R-T Axes : 035 015 021 degrees QTc Int : 481 ms Normal sinus rhythm Prolonged QT Abnormal ECG When compared with ECG of 05-DEC-2019 09:22, Non-specific change in ST segment in Inferior leads Confirmed by Maxx Arroyo ([id number]) on 12/06/2019 2:53:54 PM Referred By: REFERRED SELF Confirmed By:Maxx Arroyo
[2019-12-06] MEDS ORDERED: CALCIUM CHLORIDE 10% 1,000 MG in SODIUM CHLORIDE 0.9% 50 ML IV ONE (15:05)
--- NOTE | 2019-12-06 17:47 | Hospitalist Progress Note ---
Date of Service December 06, 2019 Assessment & Plan (1) Acute respiratory failure with hypoxia: Admit to ICU. B/l pneumonia on chest x-ray. Clinical picture highly concerning for COVID-19 (normal wbc count, lymphopenia, elevated AST, elevated d-dimer, cxr findings, etc). Profoundly hypoxic upon presentation; improved with NIPPV. intubated in ED, early intubation To cover for bacterial pneumonia - cefepime 2gm q8h; zyvox while awaiting MRSA screen; doxy for atypicals. COVID pathway - airborne isolation, contact isolation, etc follow up on COVID testing tomorrow was in prone position yesterday for 16 hours, now supine again spiking fevers of 40 degrees very guarded prognosis with worsening renal function and high temperatures (2) Suspected 2019 novel coronavirus infection: see above in "acute hypoxic resp failure" biofire negative flu negative COVID sent - should have results tomorrow (3) Sepsis: 2nd to pneumonia high concern of COVID-19 infection supportive care, IVF, IV antibiotics, etc (4) Bilateral pneumonia: see above blood cx's sent broad spectrum antibiotics COVID-19 sent (5) Acute renal failure (ARF): 2nd to dehydration/sepsis Normosol hydration serial labs HOLD MIKAEL HOLD HCTZ avoid NSAIDs Cr rising, less urine output today (6) Chronic obstructive pulmonary disease: by history, but not on inhalers at home. no wheezing on examination -- just b/l basilar rales. avoid nebs. see above in "acute hypoxic resp failure." (7) Current smoker: consider nicoderm patch defer to ICU 50+ years of smoking per patient (8) Gastroesophageal reflux disease: PPI or H2 kristian per ICU protocol (9) Gout: no recent issues not on prophylaxis (10) Obstructive sleep apnea: noted (11) Hyperlipidemia: hold STATIN (12) Hypertension: HOLD anti-hypertensives (HCTZ, MIKAEL, norvasc, etc) some literature suggesting some protection with MIKAEL use but need to hold in light of ARF (13) Diabetes mellitus type II, uncontrolled: hyperglycemic ICU protocol defer to pharmacy (14) Hypokalemia: KCL 10meq IV x 1 serial labs mag level not low (15) Hyponatremia: likely due to dehydration/volume depletion and chronic HCTZ use (16) Metabolic encephalopathy: multifactorial - sepsis, pneumonia, possible COVID-19, hyponatremia, hypoxia, etc supportive care (17) DVT prophylaxis: defer selection to critical care team Admission and Anticipated Discharge Date Admission Date: December 05, 2019 Subjective patient still spiking fevers he was placed back in supine position this morning still awaiting COVID results he is making less urine via mast Review of Systems Review of Systems: Unobtainable due to endotracheal tube Physical Exam Physical Exam: did not examine, did not enter room due to COVID rule out, want to preserve PPE and the gas desulfurizer is examining every day Results & Data Results & Data ([facility] [place]) Vital Signs (Past 12 Hours) Vital Signs Pulse Resp BP Pulse Ox 12/06/19 12:53 76 24 94 12/06/19 12:36 76 95/57 L 94 12/06/19 12:06 79 90/52 L 94 12/06/19 11:35 86 79/48 L 93 12/06/19 11:06 89 101/60 95 12/06/19 10:36 90 94/61 L 94 12/06/19 10:06 91 H 99/57 L 93 12/06/19 09:36 94 H 106/61 92 12/06/19 09:06 97 H 122/56 L 91 12/06/19 08:51 24 93 12/06/19 08:36 96 H 123/62 91 12/06/19 08:06 92 H 109/64 95 12/06/19 08:00 86 12/06/19 07:35 88 103/63 96 12/06/19 07:05 86 100/60 95 12/06/19 06:45 82 20 105/64 98 12/06/19 06:36 80 108/62 97 12/06/19 06:00 73 104/60 94 Laboratory Results Laboratory Results - last 24 hr 12/05/19 12/05/19 12/05/19 16:35 17:30 17:45 WBC RBC Hgb POC Hgb Hct POC Hct MCV MCH MCHC RDW Std Deviation RDW Coeff of Josué Plt Count MPV Immature Gran % (Auto) Neut % (Auto) Lymph % (Auto) [place] % (Auto) Eos % (Auto) Baso % (Auto) Immature Gran # (Auto) Neut # (Auto) Lymph # (Auto) [place] # (Auto) Eos # (Auto) Baso # (Auto) PT INR APTT PTT Ratio Sample Site POC pH POC pCO2 POC pO2 POC HCO3 POC Total CO2 POC Base Excess ABG pH ABG pH (Temp Correct) ABG pCO2 ABG pCO2 (Temp Corrct ABG pO2 POC ABG pO2 at Pt Temp ABG HCO3 ABG O2 Saturation ABG Base Excess Garett Test Barometric Pressure Oxygen Given O2 Delivery Device POC O2 Rate Minute Ventilation Tidal Volume PEEP POC Sodium Sodium POC Potassium Potassium Chloride Carbon Dioxide Anion Gap BUN Creatinine Est Cr Clr Drug Dosing Est GFR ( Amer) Est GFR (Non-Af Amer) BUN/Creatinine Ratio Glucose POC Glucose 304 H* Estimat Average Glucose Hemoglobin A1c Calcium Phosphorus Magnesium Total Bilirubin Direct Bilirubin AST ALT Alkaline Phosphatase Lactate Dehydrogenase Total Protein Albumin Lipase Procalcitonin Urine Color Yellow Urine Appearance Cloudy A Urine pH 5.0 Ur Specific [place] 1.028 Urine Protein 3+ H Urine Glucose (UA) 2+ H Urine Ketones Negative Urine Blood 3+ H Urine Nitrite Negative Urine Bilirubin Negative Urine Urobilinogen Negative Ur Leukocyte Esterase Negative Urine WBC (Auto) 5-10 H Urine RBC (Auto) 10-30 H U Hyaline Cast (Auto) 10-30 H U Epithel Cells (Auto) >30 H Urine Bacteria (Auto) Negative Ur Renal Epithelial Cell Not Reportable Granular Casts 10-20 H Urine Yeast Not Reportable Nasal Screen MRSA (PCR) Negative Nasopharyn COVID-19 PCR Sputum COVID-19 PCR Blood Type Antibody Screen 12/05/19 12/05/19 12/06/19 18:00 Unknown 00:15 WBC RBC Hgb POC Hgb 10.2 L Hct POC Hct 30 L MCV MCH MCHC RDW Std Deviation RDW Coeff of Josué Plt Count MPV Immature Gran % (Auto) Neut % (Auto) Lymph % (Auto) [place] % (Auto) Eos % (Auto) Baso % (Auto) Immature Gran # (Auto) Neut # (Auto) Lymph # (Auto) [place] # (Auto) Eos # (Auto) Baso # (Auto) PT INR APTT PTT Ratio Sample Site Art Line POC pH 7.41 POC pCO2 38 POC pO2 68 L POC HCO3 24 POC Total CO2 25 POC Base Excess -1.0 ABG pH ABG pH (Temp Correct) 7.390 ABG pCO2 ABG pCO2 (Temp Corrct 40 ABG pO2 POC ABG pO2 at Pt Temp 74 ABG HCO3 ABG O2 Saturation ABG Base Excess Garett Test NA Barometric Pressure Oxygen Given O2 Delivery Device Ventilator POC O2 Rate 20 Minute Ventilation 13.3 Tidal Volume 500 PEEP 20 POC Sodium 129 L Sodium POC Potassium 3.7 Potassium Chloride Carbon Dioxide Anion Gap BUN Creatinine Est Cr Clr Drug Dosing Est GFR ( Amer) Est GFR (Non-Af Amer) BUN/Creatinine Ratio Glucose POC Glucose 117 H Estimat Average Glucose Hemoglobin A1c Calcium Phosphorus Magnesium Total Bilirubin Direct Bilirubin AST ALT Alkaline Phosphatase Lactate Dehydrogenase Total Protein Albumin Lipase Procalcitonin Urine Color Urine Appearance Urine pH Ur Specific [place] Urine Protein Urine Glucose (UA) Urine Ketones Urine Blood Urine Nitrite Urine Bilirubin Urine Urobilinogen Ur Leukocyte Esterase Urine WBC (Auto) Urine RBC (Auto) U Hyaline Cast (Auto) U Epithel Cells (Auto) Urine Bacteria (Auto) Ur Renal Epithelial Cell Granular Casts Urine Yeast Nasal Screen MRSA (PCR) Nasopharyn COVID-19 PCR Pending Sputum COVID-19 PCR Pending Blood Type Antibody Screen 12/06/19 12/06/19 12/06/19 04:06 04:06 04:06 WBC RBC Hgb POC Hgb Hct POC Hct MCV MCH MCHC RDW Std Deviation RDW Coeff of Josué Plt Count MPV Immature Gran % (Auto) Neut % (Auto) Lymph % (Auto) [place] % (Auto) Eos % (Auto) Baso % (Auto) Immature Gran # (Auto) Neut # (Auto) Lymph # (Auto) [place] # (Auto) Eos # (Auto) Baso # (Auto) PT 10.9 INR 1.0 APTT 33.1 H PTT Ratio 1.2 Sample Site POC pH POC pCO2 POC pO2 POC HCO3 POC Total CO2 POC Base Excess ABG pH ABG pH (Temp Correct) ABG pCO2 ABG pCO2 (Temp Corrct ABG pO2 POC ABG pO2 at Pt Temp ABG HCO3 ABG O2 Saturation ABG Base Excess Garett Test Barometric Pressure Oxygen Given O2 Delivery Device POC O2 Rate Minute Ventilation Tidal Volume PEEP POC Sodium Sodium 131 L POC Potassium Potassium 3.4 L Chloride 98 Carbon Dioxide 25 Anion Gap 8.0 BUN 62 H Creatinine 2.57 H Est Cr Clr Drug Dosing 33.3 Est GFR ( Amer) 28.9 Est GFR (Non-Af Amer) 24.9 BUN/Creatinine Ratio 24.1 H Glucose 128 H POC Glucose Estimat Average Glucose Hemoglobin A1c Calcium 7.0 L Phosphorus 3.4 Magnesium 2.0 Total Bilirubin 0.3 Direct Bilirubin 0.1 AST 76 H ALT 41 Alkaline Phosphatase 75 Lactate Dehydrogenase 761 H Total Protein 5.5 L D Albumin 1.4 L Lipase 957 H Procalcitonin Urine Color Urine Appearance Urine pH Ur Specific [place] Urine Protein Urine Glucose (UA) Urine Ketones Urine Blood Urine Nitrite Urine Bilirubin Urine Urobilinogen Ur Leukocyte Esterase Urine WBC (Auto) Urine RBC (Auto) U Hyaline Cast (Auto) U Epithel Cells (Auto) Urine Bacteria (Auto) Ur Renal Epithelial Cell Granular Casts Urine Yeast Nasal Screen MRSA (PCR) Nasopharyn COVID-19 PCR Sputum COVID-19 PCR Blood Type Antibody Screen 12/06/19 12/06/19 12/06/19 04:06 04:06 04:07 WBC 7.92 RBC 3.66 L Hgb 10.6 L POC Hgb Hct 31.4 L POC Hct MCV 85.8 MCH 29.0 MCHC 33.8 RDW Std Deviation 41.2 RDW Coeff of Josué 13.1 Plt Count 282 MPV 9.3 Immature Gran % (Auto) 1.0 Neut % (Auto) 91.2 Lymph % (Auto) 6.2 [place] % (Auto) 1.6 Eos % (Auto) 0.0 Baso % (Auto) 0.0 Immature Gran # (Auto) 0.08 H Neut # (Auto) 7.22 H Lymph # (Auto) 0.49 L [place] # (Auto) 0.13 Eos # (Auto) 0.00 Baso # (Auto) 0.00 PT INR APTT PTT Ratio Sample Site POC pH POC pCO2 POC pO2 POC HCO3 POC Total CO2 POC Base Excess ABG pH ABG pH (Temp Correct) ABG pCO2 ABG pCO2 (Temp Corrct ABG pO2 POC ABG pO2 at Pt Temp ABG HCO3 ABG O2 Saturation ABG Base Excess Garett Test Barometric Pressure Oxygen Given O2 Delivery Device POC O2 Rate Minute Ventilation Tidal Volume PEEP POC Sodium Sodium POC Potassium Potassium Chloride Carbon Dioxide Anion Gap BUN Creatinine Est Cr Clr Drug Dosing Est GFR ( Amer) Est GFR (Non-Af Amer) BUN/Creatinine Ratio Glucose POC Glucose Estimat Average Glucose 223 Hemoglobin A1c 9.4 H Calcium Phosphorus Magnesium Total Bilirubin Direct Bilirubin AST ALT Alkaline Phosphatase Lactate Dehydrogenase Total Protein Albumin Lipase Procalcitonin 2.89 H Urine Color Urine Appearance Urine pH Ur Specific [place] Urine Protein Urine Glucose (UA) Urine Ketones Urine Blood Urine Nitrite Urine Bilirubin Urine Urobilinogen Ur Leukocyte Esterase Urine WBC (Auto) Urine RBC (Auto) U Hyaline Cast (Auto) U Epithel Cells (Auto) Urine Bacteria (Auto) Ur Renal Epithelial Cell Granular Casts Urine Yeast Nasal Screen MRSA (PCR) Nasopharyn COVID-19 PCR Sputum COVID-19 PCR Blood Type Antibody Screen 12/06/19 12/06/19 12/06/19 04:07 04:07 08:06 WBC RBC Hgb POC Hgb 11.6 L Hct POC Hct 34 L MCV MCH MCHC RDW Std Deviation RDW Coeff of Josué Plt Count MPV Immature Gran % (Auto) Neut % (Auto) Lymph % (Auto) [place] % (Auto) Eos % (Auto) Baso % (Auto) Immature Gran # (Auto) Neut # (Auto) Lymph # (Auto) [place] # (Auto) Eos # (Auto) Baso # (Auto) PT INR APTT PTT Ratio Sample Site Art Line POC pH 7.31 L POC pCO2 51 H POC pO2 76 L POC HCO3 26 H POC Total CO2 27 POC Base Excess -1.0 ABG pH 7.41 ABG pH (Temp Correct) 7.285 L ABG pCO2 39 ABG pCO2 (Temp Corrct 55 H ABG pO2 101 H POC ABG pO2 at Pt Temp 85 ABG HCO3 24 ABG O2 Saturation 97.8 H ABG Base Excess -0.2 Garett Test POS NA Barometric Pressure 728.3 Oxygen Given 50 FIO2 O2 Delivery Device Ventilator POC O2 Rate 20 Minute Ventilation 8 Tidal Volume 450 PEEP 20 POC Sodium 131 L Sodium POC Potassium 3.6 Potassium Chloride Carbon Dioxide Anion Gap BUN Creatinine Est Cr Clr Drug Dosing Est GFR ( Amer) Est GFR (Non-Af Amer) BUN/Creatinine Ratio Glucose POC Glucose Estimat Average Glucose Hemoglobin A1c Calcium Phosphorus Magnesium Total Bilirubin Direct Bilirubin AST ALT Alkaline Phosphatase Lactate Dehydrogenase Total Protein Albumin Lipase Procalcitonin Urine Color Urine Appearance Urine pH Ur Specific [place] Urine Protein Urine Glucose (UA) Urine Ketones Urine Blood Urine Nitrite Urine Bilirubin Urine Urobilinogen Ur Leukocyte Esterase Urine WBC (Auto) Urine RBC (Auto) U Hyaline Cast (Auto) U Epithel Cells (Auto) Urine Bacteria (Auto) Ur Renal Epithelial Cell Granular Casts Urine Yeast Nasal Screen MRSA (PCR) Nasopharyn COVID-19 PCR Sputum COVID-19 PCR Blood Type O Negative Antibody Screen NEGATIVE 12/06/19 12/06/19 11:22 17:01 WBC RBC Hgb POC Hgb Hct POC Hct MCV MCH MCHC RDW Std Deviation RDW Coeff of Josué Plt Count MPV Immature Gran % (Auto) Neut % (Auto) Lymph % (Auto) [place] % (Auto) Eos % (Auto) Baso % (Auto) Immature Gran # (Auto) Neut # (Auto) Lymph # (Auto) [place] # (Auto) Eos # (Auto) Baso # (Auto) PT INR APTT PTT Ratio Sample Site POC pH POC pCO2 POC pO2 POC HCO3 POC Total CO2 POC Base Excess ABG pH ABG pH (Temp Correct) ABG pCO2 ABG pCO2 (Temp Corrct ABG pO2 POC ABG pO2 at Pt Temp ABG HCO3 ABG O2 Saturation ABG Base Excess Garett Test Barometric Pressure Oxygen Given O2 Delivery Device POC O2 Rate Minute Ventilation Tidal Volume PEEP POC Sodium Sodium POC Potassium Potassium Chloride Carbon Dioxide Anion Gap BUN Creatinine Est Cr Clr Drug Dosing Est GFR ( Amer) Est GFR (Non-Af Amer) BUN/Creatinine Ratio Glucose POC Glucose 100 H 117 H Estimat Average Glucose Hemoglobin A1c Calcium Phosphorus Magnesium Total Bilirubin Direct Bilirubin AST ALT Alkaline Phosphatase Lactate Dehydrogenase Total Protein Albumin Lipase Procalcitonin Urine Color Urine Appearance Urine pH Ur Specific [place] Urine Protein Urine Glucose (UA) Urine Ketones Urine Blood Urine Nitrite Urine Bilirubin Urine Urobilinogen Ur Leukocyte Esterase Urine WBC (Auto) Urine RBC (Auto) U Hyaline Cast (Auto) U Epithel Cells (Auto) Urine Bacteria (Auto) Ur Renal Epithelial Cell Granular Casts Urine Yeast Nasal Screen MRSA (PCR) Nasopharyn COVID-19 PCR Sputum COVID-19 PCR Blood Type Antibody Screen Medications Administered Current Inpatient Medications Dextrose (Dextrose 50%) 25 - 50 ml IV UD PRN; Protocol PRN Reason: Hypoglycemia Protocol Stop: 01/04/20 17:29 Fentanyl Citrate (Fentanyl Bolus From Bag) 50 mcg IV Q60M PRN PRN Reason: Pain or Agitation Stop: 12/19/19 13:06 Last Admin: 12/06/19 00:25 Dose: 50 mcg Documented by: Glucagon (Glucagen) 1 mg IM UD PRN; Protocol PRN Reason: Hypoglycemia Protocol Stop: 01/04/20 17:29 Glucose (Glucose 40%) 15 - 30 gm PO UD PRN; Protocol PRN Reason: Hypoglycemia Protocol Stop: 01/04/20 17:29 Glucose (Dex4 Glucose) 4 - 8 tabs PO UD PRN; Protocol PRN Reason: Hypoglycemia Protocol Stop: 01/04/20 17:29 Heparin Sodium (Beef Lung) (Heparin Sod 10 Unit/Ml Flush) 5 ml FLUSH PRN PRN PRN Reason: Flush Stop: 01/04/20 22:56 Last Admin: 12/06/19 09:10 Dose: 5 ml Documented by: Heparin Sodium (Porcine) (Heparin Sodium (Porcine)) 5,000 units SQ Q12 KEARA Stop: 01/04/20 20:59 Last Admin: 12/06/19 09:09 Dose: 5,000 units Documented by: Fentanyl Citrate (Fentanyl Drip) 1,250 mcg in 250 mls @ 20 mls/hr IV .[id number] KEARA; Protocol Stop: 12/19/19 13:14 Last Titration: 12/06/19 11:48 Dose: 100 mcg/hr, 20 mls/hr Documented by: Midazolam HCl (Versed) 125 mg in 250 mls @ 20 mls/hr IV .[id number] KEARA; Protocol Stop: 01/04/20 13:14 Last Admin: 12/06/19 09:21 Dose: 10 mg/hr, 20 mls/hr Documented by: Parenteral Electrolytes (Normosol-R) 1,000 mls @ 50 mls/hr IV .Q20H KEARA Stop: 01/04/20 13:37 Last Admin: 12/06/19 14:40 Dose: 50 mls/hr Documented by: Cefepime HCl 2,000 mg/ Syringe 20 mls @ 5.5 mls/min IV Q12H KEARA; Protocol Stop: 12/13/19 00:00 Last Admin: 12/06/19 11:06 Dose: 5.5 mls/min Documented by: Doxycycline Hyclate 100 mg/ (Dextrose) 110 mls @ 50 mls/hr IV Q12H KEARA; Protocol Stop: 12/13/19 00:00 Last Infusion: 12/06/19 13:20 Dose: Infused Documented by: Acetaminophen (Ofirmev) 1,000 mg in 100 mls @ 400 mls/hr IV Q8H PRN PRN Reason: Fever or headache Stop: 12/08/19 16:57 Last Infusion: 12/06/19 11:47 Dose: Infused Documented by: Norepinephrine Bitartrate 8 mg (/ Dextrose) 508 mls @ 20.745 mls/hr IV .Q24H KEARA; Protocol Stop: 01/05/20 03:44 Last Titration: 12/06/19 11:48 Dose: 0.05 mcg/kg/min, 20.7 mls/hr Documented by: Famotidine 20 mg/ Syringe 5 mls @ 2.5 mls/min IV DAILY@0900 [facility] Stop: 01/06/20 08:59 Insulin Glargine (Lantus Solostar Pen) 0 units SC QPM KEARA; Protocol Stop: 01/05/20 20:59 Midazolam HCl (Versed Bolus From Bag) 2 mg IV Q60M PRN PRN Reason: Sedation Stop: 01/04/20 13:06 Last Admin: 12/06/19 08:45 Dose: 2 mg Documented by: Miscellaneous (Carbohydrates For Hypoglycemia) 15 - 30 gm PO UD PRN PRN Reason: Hypoglycemia Treatment Stop: 01/04/20 17:29 Multi-Ingredient Cream (Lacri-Lube) 1 appln OP Q4H PRN PRN Reason: Undecided Stop: 01/04/20 16:44 Vecuronium [place] (Norcuron) 10 mg IV Q2H PRN PRN Reason: Undecided Stop: 01/04/20 16:54 Last Admin: 12/06/19 05:55 Dose: 10 mg Documented by: PG Care Time/CCT Total # of Minutes Spent Total Time Spent with Patient: Total time spent is greater than 50% in coordination of care (as documented) at patient's floor/unit and/or counseling patient: Coding Level of Care Code None Diagnoses Acute respiratory failure with hypoxia J96.01 Suspected 2019 novel coronavirus infection R68.89 Sepsis A41.9 Bilateral pneumonia J18.9 Lung location: lower lobe of lung Pneumonia type: due to unspecified organism Acute renal failure (ARF) N17.9 Acute renal failure type: unspecified Chronic obstructive pulmonary disease J44.9 Current smoker F17.200 Gastroesophageal reflux disease K21.9 Gout M10.9 Obstructive sleep apnea G47.33 Hyperlipidemia E78.5 Hypertension I10 Diabetes mellitus type II, uncontrolled E11.65 Hypokalemia E87.6 Hyponatremia E87.1 Metabolic encephalopathy G93.41 DVT prophylaxis Z29.9 (1) Acute renal failure (ARF) Acute renal failure type: unspecified Qualified Code(s): N17.9 - Acute kidney failure, unspecified (2) Bilateral pneumonia Lung location: lower lobe of lung Pneumonia type: due to unspecified organism Qualified Code(s): J18.9 - Pneumonia, unspecified organism
[2019-12-06 19:10] LABS: BUN Creatinine Ratio 23.7 (10-20); Calcium 7.8 mg/dl (8.5-10.1); Creatinine Clr Calc Pharmacy 30.6 ml/min; Est GFR (African American) 26.6; Magnesium 2.1 mg/dl (1.8-2.4); Potassium 3.8 mmol/L (3.5-5.1)
[2019-12-06] MEDS: INSULIN GLARGINE SOLOSTAR 100 UNITS/ML 3 ML PEN SC SCH (20:07)
[2019-12-07] MEDS: DOXYCYCLINE HYCLATE 100 MG in DEXTROSE 5% 100 ML IV SCH ×2 (00:24→12:05)
[2019-12-07] MEDS: CEFEPIME 2,000 MG in SYRINGE 7.5 ML IV SCH (00:24)
[2019-12-07] MEDS: ACETAMINOPHEN 1,000 MG/100 ML VIAL IV PRN ×3 (04:00→21:57)
[2019-12-07] MEDS: VECURONIUM BROMIDE 10 MG VIAL IV PRN (04:14)
[2019-12-07 04:26] LABS: Hemoglobin 10.8 g/dL (14.0-18.0); Mean Corpuscular Hemoglobin 29.6 pg (25-34); Mean Corpuscular Hgb Conc 33.8 g/dL (32-36); Mean Corpuscular Volume 87.7 fL (80-100); Mean Platelet Volume 8.9 fL (7.4-10.4); Platelet Count 347 K/uL (130-400); RDW Coefficient of Variation 13.7 % (11.5-14.5); RDW Standard Deviation 44.1 fL (36.4-46.3); Red Blood Count 3.65 M/uL (4.7-6.1)
[2019-12-07 04:32] LABS: Base Excess ABG -2.8 mEq/L (-9-1.8); HCO3 ABG 24 mmol/L (19-24); Oxygen Saturation ABG 83.8 % (90-95); PCO2 ABG 47 mmHg (35-46); PO2 ABG 55 mmHg (80-95); pH ABG 7.31 (7.35-7.45)
[2019-12-07 04:34] LABS: Allen Test POS (Pos)
[2019-12-07 04:46] LABS: Albumin Level 1.2 gm/dl (3.4-5.0); BUN Creatinine Ratio 24.1 (10-20); Bilirubin Direct 0.1 mg/dl (0-0.2); Calcium 7.4 mg/dl (8.5-10.1); Creatinine Clr Calc Pharmacy 28.7 ml/min; Est GFR (African American) 24.7; Est GFR (Non-African American) 21.3; Potassium 3.8 mmol/L (3.5-5.1)
[2019-12-07 05:00] LABS: Bilirubin,Total 0.3 mg/dl (0.2-1); Phosphorus 5.1 mg/dl (2.5-4.9); Total Protein 5.8 gm/dl (6.4-8.2)
[2019-12-07 05:06] LABS: Basophils # (auto) 0.02 K/uL (0-0.2); Basophils % (auto) 0.3 %; Dohle Bodies 1+; Eosinophils # (auto) 0.01 K/uL (0-0.5); Eosinophils % (auto) 0.1 %; Immature Granulocytes # (auto) 0.05 K/uL (0.00-0.02); Immature Granulocytes % (auto) 0.7 %; Lymphocytes # (auto) 0.65 K/uL (1.2-3.4); Lymphocytes % (auto) 8.7 %; Monocytes # (auto) 0.08 K/uL (0.11-0.59); Monocytes % (auto) 1.1 %; Neutrophils # (auto) 6.69 K/uL (1.4-6.5); Neutrophils % (auto) 89.1 %
[2019-12-07 05:56] LABS: INR 1.1 (0.9-1.1); Partial Thromboplastin Ratio 1.4; Partial Thromboplastin Time 39.1 Seconds (21.0-31.0); Prothrombin Time 11.4 Seconds (9.0-12.0)
[2019-12-07 06:07] LABS: Fibrinogen > 860 mg/dl (184-400)
--- NOTE | 2019-12-07 08:21 | XRay Report ---
XR chest 1V portable CLINICAL HISTORY: 64 years-old Male presenting with intubation. TECHNIQUE: Portable upright AP view of the chest was obtained. COMPARISON: 12/06/2019. FINDINGS: Endotracheal tube terminates over 3 cm from the isra. Left subclavian central venous catheter termi nates in the left brachiocephalic vein. Nasogastric tube descends below the diaphragm terminating in the proximal stomach, sidehole not visualized. Atherosclerosis of the aortic arch. Cardiac silhouette mildly enlarged. Mild pulmonary vascular and i nterstitial prominence similar to prior exam. Bronchial wall cuffing may also be present. Mild added density of the lungs is suspected. Minimal patchy opacity may be present with a perihilar and basilar predominance. No large effusion or pneumothorax. Degenerative changes of the thoracic spine. Upper a bdomen normal. IMPRESSION: 1. Appropriately positioned lines and tubes. 2. Cardiomegaly with volume overload and congestive change. 3. Vague developing basilar predominant infiltrates may represent edema among other etiologies. Foll ow-up advised. ACT 112: Negative or not required by law. Electronically signed by: Yfn Stallings M.D. 12/07/2019 8:20 AM
[2019-12-07] MEDS: HEPARIN SOD 5,000 UNIT/0.5 ML VIAL SQ SCH ×2 (08:40→20:08)
[2019-12-07] MEDS: FAMOTIDINE 20 MG in SYRINGE 3 ML IV SCH (08:40)
[2019-12-07] MEDS: MIDAZOLAM HCL 125 MG/250 ML BAG IV SCH ×4 (10:47→20:04)
[2019-12-07] MEDS: fentaNYL DRIP 1,250 MCG/250 ML BAG IV SCH ×3 (10:48→20:05)
[2019-12-07] MEDS: NORMOSOL-R 1,000 ML IV SCH (10:51)
--- NOTE | 2019-12-07 11:46 | Critical Care Progress Note ---
Date of Service December 07, 2019 Assessment & Plan (1) ARDS (adult respiratory distress syndrome): Reason Critically Ill: 64-year-old male with acute hypoxic respiratory failure presumptively secondary to 2019 not well coronavirus 24-hour events: Patient was returned to supine position from prone. He continues to be hypoxemic with abnormal P to F ratio. Vasopressors were restarted. But slightly decreasing. PLAN: Neuro: Continue sedation with fentanyl and Versed. Resp: ARDS secondary to presumed viral pneumonia. Diagnostic results are currently pending. Continue ARDSnet ventilation. Currently on PRVC 20/450/20/0 0.6. Pressures are in the mid 20s and acceptable. Chest x-ray today with increasing pulmonary edema however no pressors and worsening kidney function precludes diuretics currently. CV: Back on pressors. Check cortisol. Hold on additional fluids given chest x-ray appearance and need to run lungs on slightly dry side. Fluids/Renal: Worsening renal function today. Electrolytes and acid-base status are reasonable. Follow serial BMPs. If kidney function continues to deteriorate, nephrology input may be required although think the patient may be a poor ortiz date for renal replacement therapy. ID: COVID testing pending Blood urine and sputum cultures all no growth to date. Day #3 doxycycline cefepime. Continue for now and potentially discontinue tomorrow if cultures remain negative GI/Nutrition: Holding tube feeds given persistent pressor requirements. Heme: Anemia. No signs of ongoing bleeding. Continue to follow for now. DVT prophylaxis: Heparin 5000 twice daily Endocrine: Glycemic control per pharmacy. Lines: Central line with port flushing poorly. IV service contacted for Cathflo. Arterial line endotracheal tube Kapoor catheter and orogastric tube in place updated at bedside. She requests to come to the bedside should the patient clinical D deteriorate. Advised her that these requests are taken on a [id number] basis. She is agreeable with DNR status for now. She is appropriately emotional. Support offered. 95 minutes critical care time evaluating managing and stabilizing patient with life-threatening illness. Admission and Anticipated Discharge Date Admission Date: December 05, 2019 Subjective Patient is intubated and sedated Review of Systems Review of Systems: Unobtainable due to endotracheal tube Physical Exam Constitutional: + obese and + mechanically ventilated Eyes: Pupils small bilaterally but reactive Neck: trachea midline, no thyromegaly Respiratory: Coarse breath sounds bilaterally without wheezing Cardiovascular: Rate/Rhythm: regular rate Heart Sounds: normal S1 and normal S2 Extremities: + edema Gastrointestinal (Abdomen): normal bowel sounds, soft, nontender, no hepatosplenomegaly Musculoskeletal: no cyanosis or clubbing, extremities motor strength 5/5 Skin: no rashes, warm and dry Results & Data Results & Data ([facility]) Vital Signs (Past 12 Hours) Vital Signs Pulse Resp BP Pulse Ox 12/07/19 08:45 63 22 92 12/07/19 06:27 61 102/54 L 92 12/07/19 05:27 63 103/57 L 93 12/07/19 04:35 69 20 91 12/07/19 04:27 71 91/46 L 87 L 12/07/19 03:27 70 101/54 L 92 12/07/19 02:59 69 23 92 12/07/19 02:27 67 104/58 L 91 12/07/19 01:27 63 106/57 L 94 12/07/19 00:27 60 99/57 L 93 12/06/19 23:53 61 20 92 12/06/19 23:27 60 96/56 L 92 12/06/19 22:26 63 90/52 L 92 Laboratory Results 12/07/19 04:17 12/07/19 04:17 Diagnostic Findings Chest x-ray from today was independently reviewed. Bilateral diffuse patchy infiltrates more prominent on the right than the left are noted. Endotracheal tube is 3-1/2. Central line crosses midline and appears to be within the brachiocephalic vein. No significant pleural effusions or pneumothorax. Coding Level of Care Code Critical Care 1st 30-74 mins Diagnoses ARDS (adult respiratory distress syndrome) J80 Time Spent (min) 95 Comment 95 minutes critical care time managing life-threatening illness. Please code [id number] and [id number]
[2019-12-07] MEDS ORDERED: ALTEPLASE, RECOMBINANT 1 MG/ML 2ML VIAL INSTIL ONE (12:41)
--- NOTE | 2019-12-07 14:46 | Hospitalist Progress Note ---
Date of Service December 07, 2019 Assessment & Plan (1) Acute respiratory failure with hypoxia: Admit to ICU. B/l pneumonia on chest x-ray. Clinical picture highly concerning for COVID-19 (normal wbc count, lymphopenia, elevated AST, elevated d-dimer, cxr findings, etc). Profoundly hypoxic upon presentation; improved with NIPPV. intubated in ED, early intubation COVID pathway - airborne isolation, contact isolation, etc COVID still pending, checked several times today was in prone position 4/2 for 16 hours, now supine again very guarded prognosis with worsening renal function and high temperatures Dr. Shearer updated the patient's (2) Suspected 2019 novel coronavirus infection: see above in "acute hypoxic resp failure" biofire negative flu negative COVID sent - hope to have results today (3) Sepsis: 2nd to pneumonia high concern of COVID-19 infection supportive care, IVF, IV antibiotics, etc (4) Bilateral pneumonia: see above blood cx's sent broad spectrum antibiotics COVID-19 sent (5) Acute renal failure (ARF): 2nd to dehydration/sepsis Normosol hydration serial labs HOLD MIKAEL HOLD HCTZ avoid NSAIDs Cr rising to 2.9, less urine output today Dr. Shearer will determine if nephrology needed, patient would likely be a poor HD candidate could not perform HD tomorrow due to staffing (6) Chronic obstructive pulmonary disease: by history, but not on inhalers at home. (7) Current smoker: 50+ years of smoking per patient (8) Gastroesophageal reflux disease: PPI protocol per ICU (9) Gout: no recent issues not on prophylaxis (10) Obstructive sleep apnea: noted (11) Hyperlipidemia: hold STATIN (12) Hypertension: HOLD anti-hypertensives (HCTZ, MIKAEL, norvasc, etc) some literature suggesting some protection with MIKAEL use but need to hold in light of ARF (13) Diabetes mellitus type II, uncontrolled: hyperglycemic ICU protocol defer to pharmacy (14) Hypokalemia: KCL 10meq IV x 1 serial labs mag level not low (15) Hyponatremia: likely due to dehydration/volume depletion and chronic HCTZ use (16) Metabolic encephalopathy: multifactorial - sepsis, pneumonia, possible COVID-19, hyponatremia, hypoxia, etc supportive care (17) DVT prophylaxis: defer selection to critical care team Admission and Anticipated Discharge Date Admission Date: December 05, [address] Shearer reviewed labs see his note for full details Review of Systems Review of Systems: Unobtainable due to endotracheal tube Physical Exam Physical Exam: did not examine, did not enter room due to COVID rule out, want to preserve PPE and the employment program representative is examining every day Results & Data Results & Data ([facility]) Vital Signs (Past 12 Hours) Vital Signs Pulse Resp BP Pulse Ox 12/07/19 11:57 68 105/58 L 92 12/07/19 11:27 65 110/61 90 12/07/19 11:15 73 21 92 12/07/19 10:57 67 104/53 L 89 L 12/07/19 10:27 61 105/55 L 91 12/07/19 09:57 59 L 89/49 L 94 12/07/19 09:33 59 L 104/55 L 93 12/07/19 09:27 61 80/48 L 92 12/07/19 09:00 62 95 12/07/19 08:57 60 120/63 94 12/07/19 08:45 63 22 92 12/07/19 08:27 53 L 112/61 94 12/07/19 07:57 59 L 108/58 L 91 12/07/19 07:27 58 L 110/58 L 92 12/07/19 06:57 60 105/57 L 91 12/07/19 06:27 61 102/54 L 92 12/07/19 05:27 63 103/57 L 93 12/07/19 04:35 69 20 91 12/07/19 04:27 71 91/46 L 87 L 12/07/19 03:27 70 101/54 L 92 12/07/19 02:59 69 23 92 Laboratory Results Laboratory Results - last 24 hr 12/06/19 12/06/19 12/07/19 17:01 18:33 00:35 WBC RBC Hgb Hct MCV MCH MCHC RDW Std Deviation RDW Coeff of Josué Plt Count MPV Immature Gran % (Auto) Neut % (Auto) Lymph % (Auto) Kendall % (Auto) Eos % (Auto) Baso % (Auto) Immature Gran # (Auto) Neut # (Auto) Lymph # (Auto) Kendall # (Auto) Eos # (Auto) Baso # (Auto) Dohle Bodies PT INR APTT PTT Ratio Fibrinogen ABG pH ABG pCO2 ABG pO2 ABG HCO3 ABG O2 Saturation ABG Base Excess Garett Test Barometric Pressure Oxygen Given Sodium 129 L Potassium 3.8 Chloride 97 L Carbon Dioxide 26 Anion Gap 6.0 BUN 65 H Creatinine 2.75 H Est Cr Clr Drug Dosing 30.6 Est GFR ( Amer) 26.6 Est GFR (Non-Af Amer) 23.0 BUN/Creatinine Ratio 23.7 H Glucose 133 H POC Glucose 117 H 128 H POC Glucose (other) Calcium 7.8 L Phosphorus Magnesium 2.1 Total Bilirubin Direct Bilirubin AST ALT Alkaline Phosphatase Lactate Dehydrogenase Total Protein Albumin Random Cortisol 12/07/19 12/07/19 12/07/19 04:17 04:17 04:17 WBC 7.50 RBC 3.65 L Hgb 10.8 L Hct 32.0 L MCV 87.7 MCH 29.6 MCHC 33.8 RDW Std Deviation 44.1 RDW Coeff of Josué 13.7 Plt Count 347 MPV 8.9 Immature Gran % (Auto) 0.7 Neut % (Auto) 89.1 Lymph % (Auto) 8.7 Kendall % (Auto) 1.1 Eos % (Auto) 0.1 Baso % (Auto) 0.3 Immature Gran # (Auto) 0.05 H Neut # (Auto) 6.69 H Lymph # (Auto) 0.65 L Kendall # (Auto) 0.08 L Eos # (Auto) 0.01 Baso # (Auto) 0.02 Dohle Bodies 1+ PT 11.4 INR 1.1 APTT 39.1 H PTT Ratio 1.4 Fibrinogen > 860 H ABG pH ABG pCO2 ABG pO2 ABG HCO3 ABG O2 Saturation ABG Base Excess Garett Test Barometric Pressure Oxygen Given Sodium 129 L Potassium 3.8 Chloride 96 L Carbon Dioxide 24 Anion Gap 9.0 BUN 71 H Creatinine 2.93 H Est Cr Clr Drug Dosing 28.7 Est GFR ( Amer) 24.7 Est GFR (Non-Af Amer) 21.3 BUN/Creatinine Ratio 24.1 H Glucose 148 H POC Glucose POC Glucose (other) Calcium 7.4 L Phosphorus 5.1 H D Magnesium 2.0 Total Bilirubin 0.3 Direct Bilirubin 0.1 AST 85 H ALT 41 Alkaline Phosphatase 76 Lactate Dehydrogenase Total Protein 5.8 L Albumin 1.2 L Random Cortisol 12/07/19 12/07/19 12/07/19 04:17 04:17 12:02 WBC RBC Hgb Hct MCV MCH MCHC RDW Std Deviation RDW Coeff of Josué Plt Count MPV Immature Gran % (Auto) Neut % (Auto) Lymph % (Auto) Kendall % (Auto) Eos % (Auto) Baso % (Auto) Immature Gran # (Auto) Neut # (Auto) Lymph # (Auto) Kendall # (Auto) Eos # (Auto) Baso # (Auto) Dohle Bodies PT INR APTT PTT Ratio Fibrinogen ABG pH 7.31 L ABG pCO2 47 H ABG pO2 55 L ABG HCO3 24 ABG O2 Saturation 83.8 L ABG Base Excess -2.8 Garett Test POS Barometric Pressure 731.1 Oxygen Given 50% Sodium Potassium Chloride Carbon Dioxide Anion Gap BUN Creatinine Est Cr Clr Drug Dosing Est GFR ( Amer) Est GFR (Non-Af Amer) BUN/Creatinine Ratio Glucose POC Glucose POC Glucose (other) Calcium Phosphorus Magnesium Total Bilirubin Direct Bilirubin AST ALT Alkaline Phosphatase Lactate Dehydrogenase 673 H Total Protein Albumin Random Cortisol 29.16 12/07/19 12:14 WBC RBC Hgb Hct MCV MCH MCHC RDW Std Deviation RDW Coeff of Josué Plt Count MPV Immature Gran % (Auto) Neut % (Auto) Lymph % (Auto) Kendall % (Auto) Eos % (Auto) Baso % (Auto) Immature Gran # (Auto) Neut # (Auto) Lymph # (Auto) Kendall # (Auto) Eos # (Auto) Baso # (Auto) Dohle Bodies PT INR APTT PTT Ratio Fibrinogen ABG pH ABG pCO2 ABG pO2 ABG HCO3 ABG O2 Saturation ABG Base Excess Garett Test Barometric Pressure Oxygen Given Sodium Potassium Chloride Carbon Dioxide Anion Gap BUN Creatinine Est Cr Clr Drug Dosing Est GFR ( Amer) Est GFR (Non-Af Amer) BUN/Creatinine Ratio Glucose POC Glucose POC Glucose (other) 165 H Calcium Phosphorus Magnesium Total Bilirubin Direct Bilirubin AST ALT Alkaline Phosphatase Lactate Dehydrogenase Total Protein Albumin Random Cortisol Medications Administered Current Inpatient Medications Dextrose (Dextrose 50%) 25 - 50 ml IV UD PRN; Protocol PRN Reason: Hypoglycemia Protocol Stop: 01/04/20 17:29 Fentanyl Citrate (Fentanyl Bolus From Bag) 50 mcg IV Q60M PRN PRN Reason: Pain or Agitation Stop: 12/19/19 13:06 Last Admin: 12/06/19 00:25 Dose: 50 mcg Documented by: Glucagon (Glucagen) 1 mg IM UD PRN; Protocol PRN Reason: Hypoglycemia Protocol Stop: 01/04/20 17:29 Glucose (Glucose 40%) 15 - 30 gm PO UD PRN; Protocol PRN Reason: Hypoglycemia Protocol Stop: 01/04/20 17:29 Glucose (Dex4 Glucose) 4 - 8 tabs PO UD PRN; Protocol PRN Reason: Hypoglycemia Protocol Stop: 01/04/20 17:29 Heparin Sodium (Beef Lung) (Heparin Sod 10 Unit/Ml Flush) 5 ml FLUSH PRN PRN PRN Reason: Flush Stop: 01/04/20 22:56 Last Admin: 12/06/19 09:10 Dose: 5 ml Documented by: Heparin Sodium (Porcine) (Heparin Sodium (Porcine)) 5,000 units SQ Q12 KEARA Stop: 01/04/20 20:59 Last Admin: 12/07/19 08:40 Dose: 5,000 units Documented by: Fentanyl Citrate (Fentanyl Drip) 1,250 mcg in 250 mls @ 20 mls/hr IV .[id number] KEARA; Protocol Stop: 12/19/19 13:14 Last Admin: 12/07/19 10:48 Dose: 100 mcg/hr, 20 mls/hr Documented by: Midazolam HCl (Versed) 125 mg in 250 mls @ 16 mls/hr IV .[id number] KEARA; Protocol Stop: 01/04/20 13:14 Last Titration: 12/07/19 11:26 Dose: 8 mg/hr, 16 mls/hr Documented by: Parenteral Electrolytes (Normosol-R) 1,000 mls @ 50 mls/hr IV .Q20H KEARA Stop: 01/04/20 13:37 Last Admin: 12/07/19 10:51 Dose: 50 mls/hr Documented by: Doxycycline Hyclate 100 mg/ (Dextrose) 110 mls @ 50 mls/hr IV Q12H KEARA; Protocol Stop: 12/13/19 00:00 Last Admin: 12/07/19 12:05 Dose: 50 mls/hr Documented by: Acetaminophen (Ofirmev) 1,000 mg in 100 mls @ 400 mls/hr IV Q8H PRN PRN Reason: Fever or headache Stop: 12/08/19 16:57 Last Infusion: 12/07/19 12:42 Dose: Infused Documented by: Norepinephrine Bitartrate 8 mg (/ Dextrose) 508 mls @ 20.745 mls/hr IV .Q24H KEARA; Protocol Stop: 01/05/20 03:44 Last Titration: 12/07/19 10:50 Dose: 0.05 mcg/kg/min, 20.7 mls/hr Documented by: Famotidine 20 mg/ Syringe 5 mls @ 2.5 mls/min IV DAILY@0900 [facility] Stop: 01/06/20 08:59 Last Admin: 12/07/19 08:40 Dose: 2.5 mls/min Documented by: Cefepime HCl 2,000 mg/ Syringe 20 mls @ 5.5 mls/min IV Q24H [facility]; Protocol Stop: 12/13/19 00:00 Insulin Glargine (Lantus Solostar Pen) 0 units SC QPM KEARA; Protocol Stop: 01/05/20 20:59 Last Admin: 12/06/19 20:07 Dose: Not Given Documented by: Midazolam HCl (Versed Bolus From Bag) 2 mg IV Q60M PRN PRN Reason: Sedation Stop: 01/04/20 13:06 Last Admin: 12/06/19 08:45 Dose: 2 mg Documented by: Miscellaneous (Carbohydrates For Hypoglycemia) 15 - 30 gm PO UD PRN PRN Reason: Hypoglycemia Treatment Stop: 01/04/20 17:29 Multi-Ingredient Cream (Lacri-Lube) 1 appln OP Q4H PRN PRN Reason: Undecided Stop: 01/04/20 16:44 Vecuronium [place] (Norcuron) 10 mg IV Q2H PRN PRN Reason: Undecided Stop: 01/04/20 16:54 Last Admin: 12/07/19 04:14 Dose: 10 mg Documented by: PG Care Time/CCT Total # of Minutes Spent Total Time Spent with Patient: Total time spent is greater than 50% in coordination of care (as documented) at patient's floor/unit and/or counseling patient: Coding Level of Care Code None Diagnoses Acute respiratory failure with hypoxia J96.01 Suspected 2019 novel coronavirus infection R68.89 Sepsis A41.9 Bilateral pneumonia J18.9 Lung location: lower lobe of lung Pneumonia type: due to unspecified organism Acute renal failure (ARF) N17.9 Acute renal failure type: unspecified Chronic obstructive pulmonary disease J44.9 Current smoker F17.200 Gastroesophageal reflux disease K21.9 Gout M10.9 Obstructive sleep apnea G47.33 Hyperlipidemia E78.5 Hypertension I10 Diabetes mellitus type II, uncontrolled E11.65 Hypokalemia E87.6 Hyponatremia E87.1 Metabolic encephalopathy G93.41 DVT prophylaxis Z29.9 (1) Bilateral pneumonia Lung location: lower lobe of lung Pneumonia type: due to unspecified organism Qualified Code(s): J18.9 - Pneumonia, unspecified organism (2) Acute renal failure (ARF) Acute renal failure type: unspecified Qualified Code(s): N17.9 - Acute kidney failure, unspecified
[2019-12-07] MEDS: INSULIN GLARGINE SOLOSTAR 100 UNITS/ML 3 ML PEN SC SCH (20:03)
[2019-12-07] MEDS: NOREPINEPHRINE BIT INJ 8 MG in DEXTROSE 5% 500 ML IV SCH (20:04)
[2019-12-08] MEDS ORDERED: CEFEPIME 2,000 MG in SYRINGE 7.5 ML IV SCH
[2019-12-08] MEDS: DOXYCYCLINE HYCLATE 100 MG in DEXTROSE 5% 100 ML IV SCH (00:53)
[2019-12-08 04:20] LABS: Hematocrit (blood only) 29.5 % (42-52); Hemoglobin 9.8 g/dL (14.0-18.0); Mean Corpuscular Hemoglobin 29.2 pg (25-34); Mean Corpuscular Hgb Conc 33.2 g/dL (32-36); Mean Corpuscular Volume 87.8 fL (80-100); Mean Platelet Volume 8.8 fL (7.4-10.4); Platelet Count 373 K/uL (130-400); RDW Standard Deviation 45.3 fL (36.4-46.3); Red Blood Count 3.36 M/uL (4.7-6.1); White Blood Count 9.23 K/uL (4.8-10.8)
[2019-12-08 04:30] LABS: Base Excess ABG -5.2 mEq/L (-9-1.8); HCO3 ABG 22 mmol/L (19-24); Oxygen Saturation ABG 91.9 % (90-95); PCO2 ABG 49 mmHg (35-46); PO2 ABG 70 mmHg (80-95); pH ABG 7.27 (7.35-7.45)
[2019-12-08 04:31] LABS: INR 1.1 (0.9-1.1); Partial Thromboplastin Ratio 1.4; Partial Thromboplastin Time 38.8 Seconds (21.0-31.0); Prothrombin Time 11.9 Seconds (9.0-12.0)
[2019-12-08 04:41] LABS: Allen Test POS (Pos)
[2019-12-08 04:46] LABS: Albumin Level 1.1 gm/dl (3.4-5.0); BUN Creatinine Ratio 20.6 (10-20); Bilirubin,Total 0.2 mg/dl (0.2-1); Calcium 7.7 mg/dl (8.5-10.1); Creatinine Clr Calc Pharmacy 20.7 ml/min; Est GFR (African American) 16.6; Est GFR (Non-African American) 14.3; Magnesium 2.3 mg/dl (1.8-2.4); Phosphorus 7.5 mg/dl (2.5-4.9); Potassium 4.7 mmol/L (3.5-5.1)
[2019-12-08 05:02] LABS: Basophils # (auto) 0.02 K/uL (0-0.2); Basophils % (auto) 0.2 %; Eosinophils # (auto) 0.02 K/uL (0-0.5); Eosinophils % (auto) 0.2 %; Immature Granulocytes # (auto) 0.14 K/uL (0.00-0.02); Immature Granulocytes % (auto) 1.5 %; Lymphocytes # (auto) 0.54 K/uL (1.2-3.4); Lymphocytes % (auto) 5.9 %; Monocytes % (auto) 2.2 %; Neutrophils # (auto) 8.31 K/uL (1.4-6.5)
[2019-12-08 05:08] LABS: Bilirubin Direct 0.2 mg/dl (0-0.2)
[2019-12-08] MEDS: NORMOSOL-R 1,000 ML IV SCH (05:46)
--- NOTE | 2019-12-08 08:01 | XRay Report ---
XR chest 1V portable CLINICAL HISTORY: intubation COMPARISON STUDY: Chest radiograph December 07, 2019. FINDINGS: The tip of the endotracheal tube is 4.5 cm above the isra. Nasogastric tube is difficult to visualize but tip is likely within the stomach. There is no pneumothorax or pleural effusion. Mode rate cardiomegaly is again noted. Interstitial thickening and mild bilateral opacities persist. IMPRESSION: 1. Tip of endotracheal tube 4.5 cm above the isra. 2. Nasogastric tube difficult to visualize but tip probably within the stomach. 3. Persistent interstitial thickening and bilateral airspace opacities which favor an infectious etio logy. Pulmonary edema could appear similar but is considered less likely. ACT 112: Negative or not required by law. Electronically signed by: Michael Ponce M.D. 12/08/2019 7:59 AM
[2019-12-08] MEDS: NOREPINEPHRINE BIT INJ 8 MG in DEXTROSE 5% 500 ML IV SCH (09:19)
[2019-12-08] MEDS: HEPARIN SOD 5,000 UNIT/0.5 ML VIAL SQ SCH ×2 (09:22→19:58)
[2019-12-08] MEDS: FAMOTIDINE 20 MG in SYRINGE 3 ML IV SCH (09:23)
[2019-12-08] MEDS: fentaNYL DRIP 1,250 MCG/250 ML BAG IV SCH ×2 (09:23→21:47)
--- NOTE | 2019-12-08 09:51 | Critical Care Progress Note ---
Date of Service December 08, 2019 Assessment & Plan (1) ARDS (adult respiratory distress syndrome): Reason Critically Ill: 64-year-old male with acute hypoxic respiratory failure presumptively secondary to 2019 not well coronavirus 24-hour events: Patient remained on vasopressor support overnight. Serum creatinine continues to climb. He is now oliguric he has made some progress in weaning his PEEP down to 16. PLAN: Neuro: Continue sedation with fentanyl and Versed. Resp: ARDS of unclear etiology. His coronavirus PCR from the Department of Health is negative despite high pretest probability. Continue ARDSnet ventilation. Currently on PRVC 20/450/16/0.5. Peak pressure of 24. Chest x-ray today with increasing pulmonary edema however no pressors and worsening kidney function precludes diuretics currently. CV: Back on pressors. Random cortisol 29 which is adequate. Hold on additional fluids given chest x-ray appearance and need to run lungs on slightly dry side. Fluids/Renal: Kidney function continues to deteriorate. Phosphate is now elevated and patient developing uremia with a BUN of over 80. Will obtain nephrology consultation today. Patient with metabolic and respiratory acidosis. Will hold on bicarb pending discussion with nephrology. ID: COVID testing negative Blood urine and sputum cultures all no growth to date. Will discontinue antibiotics at this point time and repeat cultures. We will check Legionella and repeat Biofire panel as well. May consider bronchoscopy, however at this point time given his high FiO2 and PEEP requirements will hold off GI/Nutrition: Holding tube feeds given persistent pressor requirements. Heme: Anemia. Slight decrease in hemoglobin and hematocrit today. No evidence of bleeding. No indication for transfusion currently. DVT prophylaxis: Heparin 5000 twice daily Endocrine: Glycemic control per pharmacy. Lines: Central line, ports now flushing after administration of Cathflo Arterial line Endotracheal tube Kapoor Orogastric tube updated via telephone. She requests to come to the bedside should the patient clinically deteriorate. Will accomodate as much as possible. She is agreeable with DNR status for now. Support offered. 48 minutes critical care time evaluating managing and stabilizing patient with life-threatening illness. Admission and Anticipated Discharge Date Admission Date: December 05, 2019 Subjective Intubated and sedated Review of Systems Review of Systems: Unobtainable due to endotracheal tube Physical Exam Constitutional: + obese and + mechanically ventilated Neck: trachea midline, no thyromegaly Cardiovascular: Rate/Rhythm: regular rate Heart Sounds: normal S1 and normal S2 Extremities: + edema Gastrointestinal (Abdomen): normal bowel sounds, soft, nontender, no hep atosplenomegaly Musculoskeletal: no cyanosis or clubbing, extremities motor strength 5/5 Skin: no rashes, warm and dry Results & Data Results & Data ([facility]) Vital Signs (Past 12 Hours) Vital Signs Pulse Resp BP Pulse Ox 12/08/19 08:20 66 23 93 12/08/19 06:00 63 92 12/08/19 04:28 63 109/49 L 92 12/08/19 03:28 62 103/49 L 91 12/08/19 03:05 63 21 92 12/08/19 02:28 63 110/47 L 92 12/08/19 01:27 63 103/48 L 91 12/08/19 00:27 66 106/49 L 91 12/07/19 23:27 68 102/44 L 90 12/07/19 22:59 69 22 90 12/07/19 22:29 74 106/56 L 90 Laboratory Results 12/08/19 04:12 12/08/19 04:12 Coronavirus PCR from the Department of Health is negative Diagnostic Findings Chest x-ray from today was reviewed. There are asymmetric pulmonary infiltrates more prominent on the left than the right. Endotracheal tube and central line as well as gastric tube appear to be in good position. Coding Level of Care Code Critical Care 1st 30-74 mins Diagnoses ARDS (adult respiratory distress syndrome) J80 Time Spent (min) 48 Comment 40 minutes critical care time managing patient in discussing end-of-life issues with on phone
[2019-12-08 11:39] LABS: Appearance Urine Cloudy (Clear); Bacteria Urine Automated Negative (Negative); Bilirubin Urine Negative (Negative); Blood Urine 3+ (Negative); Color Urine Dark Yellow; Glucose Urine UA Negative (Negative); Ketones Urine Trace (Negative); Leukocyte Esterase Urine Negative (Negative); Nitrite Urine Negative (Negative); Protein Urine 2+ (Negative); Specific Gravity Urine 1.027 (1.000-1.030); Urobilinogen Urine Negative (Negative)
--- NOTE | 2019-12-08 11:41 | Ultrasound Report ---
RENAL ULTRASOUND CLINICAL HISTORY: Renal failure. COMPARISON STUDY: None. TECHNIQUE: Sonography of the kidneys and the urinary bladder was performed. FINDINGS: Right kidney measures 12.5 x 6 x 6.6 cm and the left measures 12.5 x 6.8 x 7.3 cm. There is no hydronephrosis. The kidneys are echogenic. Note is made of a 3.3 cm cyst within the left kidney a nd a 1.1 cm cyst within lower pole of the right kidney. No calculi or solid masses are identified by sonography. Bladder is largely collapsed, containing a Kapoor catheter. IMPRESSION: 1. No hydronephrosis. 2. Several renal cysts. ACT 112: Negative or not required by law. Electronically signed by: Michael Ponce M.D. 12/08/2019 11:40 AM
[2019-12-08 11:54] LABS: Sperm Urine Present (None Prsent)
[2019-12-08] MEDS ORDERED: PHARMACY GLYCEMIC MGMT CONSULT PRN (12:05)
[2019-12-08 12:31] LABS: Adenovirus PCR Not Detected (NotDetected); Bordetella parapertussis PCR Not Detected (NotDetected); Bordetella pertussis PCR Not Detected (NotDetected); Chlamydia pneumoniae PCR Not Detected (NotDetected); Coronavirus 229E PCR Not Detected (NotDetected); Coronavirus HKU1 PCR Not Detected (NotDetected); Coronavirus NL63 PCR Not Detected (NotDetected); Coronavirus OC43PCR Not Detected (NotDetected); Human Metapneumovirus PCR Not Detected (NotDetected); Influenza A PCR Not Detected (NotDetected); Influenza B PCR Not Detected (NotDetected); Mycoplasma pneumoniae PCR Not Detected (NotDetected); Parainfluenza Virus 1 PCR Not Detected (NotDetected); Parainfluenza Virus 2 PCR Not Detected (NotDetected); Parainfluenza Virus 3 PCR Not Detected (NotDetected); Parainfluenza Virus 4 PCR Not Detected (NotDetected); Respiratory Syncytial VirusPCR Not Detected (NotDetected); Rhinovirus/Enterovirus PCR Not Detected (NotDetected)
[2019-12-08] MEDS ORDERED: HEPARIN SOD (PORCINE) 1000 UNIT/ML 10 ML VIAL IV ONE (12:41)
[2019-12-08] MEDS ORDERED: SODIUM CHLORIDE 0.9% 1000ML 1,000 ML IV PRN (12:41)
[2019-12-08] MEDS ORDERED: INSULIN GLARGINE SOLOSTAR 100 UNITS/ML 3 ML PEN SC ONE (12:45)
[2019-12-08] MEDS: INSULIN ASPART 100 UNITS/ML 3 ML PEN SQ SCH ×5 (12:46→23:43)
--- NOTE | 2019-12-08 13:01 | Nephrology Consultation ---
Date of Consultation December 08, 2019 Assessment & Plan (1) JACQUELINE (acute kidney injury): Mr. Hinkle is a 64-year-old male with DM, hypertension, ASA, obesity, and COPD. Baseline creatinine in 2019 was 1.4 mg/dL. Creatinine on admission 2.7 mg/dL. The patient has oliguric JACQUELINE with ATN. Renal ultrasound demonstrates a couple of renal cysts in both kidneys. There is not significant cortical atrophy. There is no significant history of CKD documented. Urine microscopy is notable for 2+ protein, microscopic hematuria, and pyuria. Urine culture negative. At this time, we cannot exclude acute GN. However, clinical presentation atypical. No evidence of TMA. Clinical presentation not consistent with AIN. Lisinopril, HCTZ, and metformin have been appropriately held. Antihypertensives held given persistent hypotension. Positive fluid balance to acceptable limit achieved at this time. Certainly, despite negative testing for COVID 19, clinical presentation is concerning. Appropriate management for ARDS is being provided. Biofire assay is being rechecked. Despite decreased EAV, TBW increasing and oxygen requirements have increased. Airspace disease is progressing on CXR. Condition is critical and prognosis unfortunately guarded. To help maintain fluid balance, HD will be started today. Low clearance. Orders for HD were entered into the EHR and discussed with the dialysis nurse commission auditor. Dr. Shearer has agreed to place a hemodialysis catheter. A low Qb treatment with UF of 500-1000 ml will be provided on a 160 optiflux over 2 hours. Levophed will be continued through treatment as needed to maintain MAP. I will plan on a second more extended treatment tomorrow pending follow up assessment. Primary goal is to avoid increasing interstitial pulmonary edema. For completeness, serologic GN evaluation will also be added. This would include complement levels, ANCA, AAKASH, and anti-BM. Evidence of systemic vasculitis including purpura, synovitis have not been demonstrated. Hepatitis B +C and HIV testing also considered. History of Present Illness Reason for Consultation: JACQUELINE Requesting Physician: Rick Shearer MD Attending Physician: Garth Weber DO History of Present Illness Mr. Gideon Hinkle is a critically ill 64-year-old male admitted to [facility] on December 04 with acute hypoxic and hypercapnic respiratory failure. He presented to the ER from home with shortness of breath, cough, and fevers. Symptoms were progressively increasing over ~10 days prior to admission. There is no concerning travel history and there are no known sick contacts. CXR on admission demonstrated patchy BL lower lobe airspace disease. This has also been progressive. Gideon was intubated and placed on ventilator support on December 04. He remains intubated in the ICU. FIO2 increased to 60% with PEEP 20. History was obtained from reviewing the medical record, as well as discussion with Dr. Shearer, the patient's nurse, and the patient's . Nephrology consultation was requested for acute renal injury. Biofire assay negative, influenza testing negative, and COVID 19 testing negative. Blood cultures negative. Urine culture negative. Induced sputum sample demonstrated normal monie. Fevers persist at 37.7. Antibiotic therapy including cefepime and doxycycline has been provided. Past medical history is notable for obesity, ASA, COPD, tobacco smoker, DMII, and hypertension. QTc on admission was greater than 500. Most recent QTc 480. There is no know history of cardiovascular disease. Serum creatinine at baseline in January 2019 was 1.4 mg/dL. Creatinine on admission 2.7 mg/dL. UA notable for 2+ protein, microscopic hematuria, 10-30 WBC/hpf, and granular casts. Renal US demonstrated normal sized kidneys with normal cortical thickness. There is no evidence of obstruction. Kapoor is draining concentrated urine. The patient is oliguric. Since admission, fluid balance is positive 5.6L. IV medications account for approximately 100 ml/hr. Levophed infusion remains at 0.05 mcg/kg/min. In addition to JACQUELINE, laboratory studies demonstrate worsening mixed respiratory and metabolic acidosis as well as hyponatremia. Serum albumin has dropped from 2.2 to 1.1 g/dL. Serum protein 6.0. When I discussed the patient's condition with his , she was in agreement with starting hemodialysis. Consent for dialysis catheter placement was obtained. Allergies Allergy/AdvReac Type Severity Reaction Status Date / Time No Known Allergies Allergy Unknown Verified 12/05/19 09:58 Home Medications Home Medications Medication Instructions Recorded Confirmed Type amlodipine 10 mg tablet 10 mg PO DAILY #90 tab 04/17/19 12/05/19 History glimepiride 4 mg tablet 8 mg PO DAILY #180 tab 04/17/19 12/05/19 History lisinopril 20 2 tab PO DAILY #180 tab 08/14/19 04/02/20 History mg-hydrochlorothiazide 12.5 mg tablet atorvastatin 40 mg tablet 40 mg PO DAILY #90 tab 05/08/19 12/05/19 Rx insulin syringe-needle U-100 1 mL #100 ea 06/05/19 08/22/19 Rx 30 gauge x 1/2" linagliptin 5 mg tablet 5 mg PO DAILY #90 tab 06/05/19 12/05/19 Rx metformin 1,000 mg tablet 1,000 mg PO UD #180 tab 08/20/19 12/05/19 History insulin glargine 100 unit/mL 54 units SUBCUT QPM #5 vial 09/09/19 12/05/19 Rx subcutaneous solution Patient History Medical History Chronic obstructive pulmonary disease (Acute) Current smoker (Acute) Diabetes mellitus type II, uncontrolled (Chronic) Dysplastic nevus Gastroesophageal reflux disease (Acute) Gout (Acute) Hyperlipidemia (Chronic) Hypertension (Chronic) Obstructive sleep apnea (Chronic) Sebaceous cyst Surgical History No pertinent past surgical history Family History Mother Diabetes Father Cancer Lung cancer age 53 Aunt Colorectal cancer Denies family history of Ovarian cancer Prostate cancer Myocardial infarction Breast cancer Social History Preferred Language: Citizen Of [place] Communication Ability: Unable Visual Impairment: No Limitations Hearing Ability: Normal Book Author Required: No Beliefs That Will Affect Care: None marital status: Current Living Situation: Spouse Current Living Situation Comment: lives with ; no kids current occupational status: employed 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; 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 Feels Safe at Home: Yes Smoking Status: Current every day smoker Tobacco Type: cigarettes ; Cigarettes Per Day: does not know, recently none ; Second Hand Exposure: No ; Hx Alcohol Use: Yes Hx Substance Use: No Childhood Exposure to Second-Hand Smoke: Yes Dental Care, Regularly: Yes Physical Activity Frequency: Does not Exercise Seatbelt Use: sometimes Sunscreen Use: No Review of Systems Review of Systems: Unobtainable due to endotracheal tube Physical Exam Physical Exam: I did not personally exam the patient in the room but discussed the patient's condition directly with the nurse as well as patient care secretary. Results & Data Vital Signs (Past 12 Hours) Vital Signs Pulse Resp BP Pulse Ox 12/08/19 09:58 68 103/45 L 89 L 12/08/19 09:30 69 93 12/08/19 09:28 70 111/52 L 93 12/08/19 08:58 67 111/49 L 93 12/08/19 08:28 65 108/47 L 93 12/08/19 08:20 66 23 93 12/08/19 07:58 66 110/51 L 93 12/08/19 07:28 65 111/52 L 93 12/08/19 06:58 65 111/49 L 93 12/08/19 06:28 64 110/48 L 92 12/08/19 06:00 63 92 12/08/19 04:28 63 109/49 L 92 12/08/19 03:28 62 103/49 L 91 12/08/19 03:05 63 21 92 12/08/19 02:28 63 110/47 L 92 12/08/19 01:27 63 103/48 L 91 Laboratory Results Laboratory Results - last 24 hr 12/05/19 12/07/19 12/08/19 09:30 17:27 01:06 WBC RBC Hgb Hct MCV MCH MCHC RDW Std Deviation RDW Coeff of Josué Plt Count MPV Immature Gran % (Auto) Neut % (Auto) Lymph % (Auto) [place] % (Auto) Eos % (Auto) Baso % (Auto) Immature Gran # (Auto) Neut # (Auto) Lymph # (Auto) [place] # (Auto) Eos # (Auto) Baso # (Auto) PT INR APTT PTT Ratio ABG pH ABG pCO2 ABG pO2 ABG HCO3 ABG O2 Saturation ABG Base Excess Garett Test Barometric Pressure Oxygen Given Sodium Potassium Chloride Carbon Dioxide Anion Gap BUN Creatinine Est Cr Clr Drug Dosing Est GFR ( Amer) Est GFR (Non-Af Amer) BUN/Creatinine Ratio Glucose POC Glucose (other) 186 H 184 H Calcium Phosphorus Magnesium Total Bilirubin Direct Bilirubin AST ALT Alkaline Phosphatase Lactate Dehydrogenase Total Protein Albumin Procalcitonin Urine Color Urine Appearance Urine pH Ur Specific [place] Urine Protein Urine Glucose (UA) Urine Ketones Urine Blood Urine Nitrite Urine Bilirubin Urine Urobilinogen Ur Leukocyte Esterase Urine WBC (Auto) Urine RBC (Auto) U Hyaline Cast (Auto) U Epithel Cells (Auto) Urine Bacteria (Auto) Granular Casts Urine Yeast Urine Sperm Adenovirus (PCR) B. pertussis DNA (PCR) B.parapertussis DNA PCR C. pneumoniae DNA (PCR) Coronavirus (PCR) Pending Coronavirus OC43 (PCR) Coronavirus HKU1 (PCR) Coronavirus 229E (PCR) COVID-19 Pt Symptomatic Pending COVID-19 Source Pending Coronavirus NL63 (PCR) Human Metapneumovir PCR Influenza Type A (PCR) Influenza Type B (PCR) Urine Legionella Ag M. pneumoniae (PCR) Parainfluenza 1 (PCR) Parainfluenza 2 (PCR) Parainfluenza 3 (PCR) Parainfluenza 4 (PCR) RSV (PCR) Entero/Rhino (PCR) SARS Virus RNA (PCR) Pending SARS-CoV-2 RNA (RT-PCR) Pending 12/08/19 12/08/19 12/08/19 04:12 04:12 04:12 WBC 9.23 RBC 3.36 L Hgb 9.8 L Hct 29.5 L MCV 87.8 MCH 29.2 MCHC 33.2 RDW Std Deviation 45.3 RDW Coeff of Josué 14.0 Plt Count 373 MPV 8.8 Immature Gran % (Auto) 1.5 Neut % (Auto) 90.0 Lymph % (Auto) 5.9 [place] % (Auto) 2.2 Eos % (Auto) 0.2 Baso % (Auto) 0.2 Immature Gran # (Auto) 0.14 H Neut # (Auto) 8.31 H Lymph # (Auto) 0.54 L [place] # (Auto) 0.20 Eos # (Auto) 0.02 Baso # (Auto) 0.02 PT 11.9 INR 1.1 APTT 38.8 H PTT Ratio 1.4 ABG pH ABG pCO2 ABG pO2 ABG HCO3 ABG O2 Saturation ABG Base Excess Garett Test Barometric Pressure Oxygen Given Sodium 127 L Potassium 4.7 D Chloride 94 L Carbon Dioxide 22 Anion Gap 11.0 BUN 83 H Creatinine 4.06 H D Est Cr Clr Drug Dosing 20.7 Est GFR ( Amer) 16.6 Est GFR (Non-Af Amer) 14.3 BUN/Creatinine Ratio 20.6 H Glucose 206 H POC Glucose (other) Calcium 7.7 L Phosphorus 7.5 H D Magnesium 2.3 Total Bilirubin 0.2 Direct Bilirubin 0.2 D AST 59 H ALT 34 Alkaline Phosphatase 80 Lactate Dehydrogenase Total Protein 6.0 L Albumin 1.1 L Procalcitonin Urine Color Urine Appearance Urine pH Ur Specific [place] Urine Protein Urine Glucose (UA) Urine Ketones Urine Blood Urine Nitrite Urine Bilirubin Urine Urobilinogen Ur Leukocyte Esterase Urine WBC (Auto) Urine RBC (Auto) U Hyaline Cast (Auto) U Epithel Cells (Auto) Urine Bacteria (Auto) Granular Casts Urine Yeast Urine Sperm Adenovirus (PCR) B. pertussis DNA (PCR) B.parapertussis DNA PCR C. pneumoniae DNA (PCR) Coronavirus (PCR) Coronavirus OC43 (PCR) Coronavirus HKU1 (PCR) Coronavirus 229E (PCR) COVID-19 Pt Symptomatic COVID-19 Source Coronavirus NL63 (PCR) Human Metapneumovir PCR Influenza Type A (PCR) Influenza Type B (PCR) Urine Legionella Ag M. pneumoniae (PCR) Parainfluenza 1 (PCR) Parainfluenza 2 (PCR) Parainfluenza 3 (PCR) Parainfluenza 4 (PCR) RSV (PCR) Entero/Rhino (PCR) SARS Virus RNA (PCR) SARS-CoV-2 RNA (RT-PCR) 12/08/19 12/08/19 12/08/19 04:12 04:12 10:41 WBC RBC Hgb Hct MCV MCH MCHC RDW Std Deviation RDW Coeff of Josué Plt Count MPV Immature Gran % (Auto) Neut % (Auto) Lymph % (Auto) [place] % (Auto) Eos % (Auto) Baso % (Auto) Immature Gran # (Auto) Neut # (Auto) Lymph # (Auto) [place] # (Auto) Eos # (Auto) Baso # (Auto) PT INR APTT PTT Ratio ABG pH 7.27 L ABG pCO2 49 H ABG pO2 70 L ABG HCO3 22 ABG O2 Saturation 91.9 ABG Base Excess -5.2 Garett Test POS Barometric Pressure 732.0 Oxygen Given 50 FIO2 Sodium Potassium Chloride Carbon Dioxide Anion Gap BUN Creatinine Est Cr Clr Drug Dosing Est GFR ( Amer) Est GFR (Non-Af Amer) BUN/Creatinine Ratio Glucose POC Glucose (other) Calcium Phosphorus Magnesium Total Bilirubin Direct Bilirubin AST ALT Alkaline Phosphatase Lactate Dehydrogenase 593 H Total Protein Albumin Procalcitonin 8.82 H Urine Color Urine Appearance Urine pH Ur Specific [place] Urine Protein Urine Glucose (UA) Urine Ketones Urine Blood Urine Nitrite Urine Bilirubin Urine Urobilinogen Ur Leukocyte Esterase Urine WBC (Auto) Urine RBC (Auto) U Hyaline Cast (Auto) U Epithel Cells (Auto) Urine Bacteria (Auto) Granular Casts Urine Yeast Urine Sperm Adenovirus (PCR) B. pertussis DNA (PCR) B.parapertussis DNA PCR C. pneumoniae DNA (PCR) Coronavirus (PCR) Coronavirus OC43 (PCR) Coronavirus HKU1 (PCR) Coronavirus 229E (PCR) COVID-19 Pt Symptomatic COVID-19 Source Coronavirus NL63 (PCR) Human Metapneumovir PCR Influenza Type A (PCR) Influenza Type B (PCR) Urine Legionella Ag M. pneumoniae (PCR) Parainfluenza 1 (PCR) Parainfluenza 2 (PCR) Parainfluenza 3 (PCR) Parainfluenza 4 (PCR) RSV (PCR) Entero/Rhino (PCR) SARS Virus RNA (PCR) SARS-CoV-2 RNA (RT-PCR) 12/08/19 12/08/19 12/08/19 10:50 11:15 11:15 WBC RBC Hgb Hct MCV MCH MCHC RDW Std Deviation RDW Coeff of Josué Plt Count MPV Immature Gran % (Auto) Neut % (Auto) Lymph % (Auto) [place] % (Auto) Eos % (Auto) Baso % (Auto) Immature Gran # (Auto) Neut # (Auto) Lymph # (Auto) [place] # (Auto) Eos # (Auto) Baso # (Auto) PT INR APTT PTT Ratio ABG pH ABG pCO2 ABG pO2 ABG HCO3 ABG O2 Saturation ABG Base Excess Garett Test Barometric Pressure Oxygen Given Sodium Potassium Chloride Carbon Dioxide Anion Gap BUN Creatinine Est Cr Clr Drug Dosing Est GFR ( Amer) Est GFR (Non-Af Amer) BUN/Creatinine Ratio Glucose POC Glucose (other) 183 H Calcium Phosphorus Magnesium Total Bilirubin Direct Bilirubin AST ALT Alkaline Phosphatase Lactate Dehydrogenase Total Protein Albumin Procalcitonin Urine Color Dark Yellow Urine Appearance Cloudy A Urine pH 5.0 Ur Specific [place] 1.027 Urine Protein 2+ H Urine Glucose (UA) Negative Urine Ketones Trace H Urine Blood 3+ H Urine Nitrite Negative Urine Bilirubin Negative Urine Urobilinogen Negative Ur Leukocyte Esterase Negative Urine WBC (Auto) 10-30 H Urine RBC (Auto) 5-10 H U Hyaline Cast (Auto) 1-5 U Epithel Cells (Auto) 10-20 H Urine Bacteria (Auto) Negative Granular Casts 1-5 H Urine Yeast Not Reportable Urine Sperm Present A Adenovirus (PCR) B. pertussis DNA (PCR) B.parapertussis DNA PCR C. pneumoniae DNA (PCR) Coronavirus (PCR) Coronavirus OC43 (PCR) Coronavirus HKU1 (PCR) Coronavirus 229E (PCR) COVID-19 Pt Symptomatic COVID-19 Source Coronavirus NL63 (PCR) Human Metapneumovir PCR Influenza Type A (PCR) Influenza Type B (PCR) Urine Legionella Ag Pending M. pneumoniae (PCR) Parainfluenza 1 (PCR) Parainfluenza 2 (PCR) Parainfluenza 3 (PCR) Parainfluenza 4 (PCR) RSV (PCR) Entero/Rhino (PCR) SARS Virus RNA (PCR) SARS-CoV-2 RNA (RT-PCR) 12/08/19 11:30 WBC RBC Hgb Hct MCV MCH MCHC RDW Std Deviation RDW Coeff of Josué Plt Count MPV Immature Gran % (Auto) Neut % (Auto) Lymph % (Auto) [place] % (Auto) Eos % (Auto) Baso % (Auto) Immature Gran # (Auto) Neut # (Auto) Lymph # (Auto) [place] # (Auto) Eos # (Auto) Baso # (Auto) PT INR APTT PTT Ratio ABG pH ABG pCO2 ABG pO2 ABG HCO3 ABG O2 Saturation ABG Base Excess Garett Test Barometric Pressure Oxygen Given Sodium Potassium Chloride Carbon Dioxide Anion Gap BUN Creatinine Est Cr Clr Drug Dosing Est GFR ( Amer) Est GFR (Non-Af Amer) BUN/Creatinine Ratio Glucose POC Glucose (other) Calcium Phosphorus Magnesium Total Bilirubin Direct Bilirubin AST ALT Alkaline Phosphatase Lactate Dehydrogenase Total Protein Albumin Procalcitonin Urine Color Urine Appearance Urine pH Ur Specific [place] Urine Protein Urine Glucose (UA) Urine Ketones Urine Blood Urine Nitrite Urine Bilirubin Urine Urobilinogen Ur Leukocyte Esterase Urine WBC (Auto) Urine RBC (Auto) U Hyaline Cast (Auto) U Epithel Cells (Auto) Urine Bacteria (Auto) Granular Casts Urine Yeast Urine Sperm Adenovirus (PCR) Not Detected B. pertussis DNA (PCR) Not Detected B.parapertussis DNA PCR Not Detected C. pneumoniae DNA (PCR) Not Detected Coronavirus (PCR) Coronavirus OC43 (PCR) Not Detected Coronavirus HKU1 (PCR) Not Detected Coronavirus 229E (PCR) Not Detected COVID-19 Pt Symptomatic COVID-19 Source Coronavirus NL63 (PCR) Not Detected Human Metapneumovir PCR Not Detected Influenza Type A (PCR) Not Detected Influenza Type B (PCR) Not Detected Urine Legionella Ag M. pneumoniae (PCR) Not Detected Parainfluenza 1 (PCR) Not Detected Parainfluenza 2 (PCR) Not Detected Parainfluenza 3 (PCR) Not Detected Parainfluenza 4 (PCR) Not Detected RSV (PCR) Not Detected Entero/Rhino (PCR) Not Detected SARS Virus RNA (PCR) SARS-CoV-2 RNA (RT-PCR) Diagnostic Findings CXR: demonstrates progressive interstitial airspace opacities throughout both lungs, with moderate cardiomegaly, without significant pulmonary vascular congestion. PG Care Time/CCT Total # of Minutes Spent Total Time Spent with Patient: Total time spent is greater than 50% in coordination of care (as documented) at patient's floor/unit and/or counseling patient: Coding Level of Care Code 39030 Inpt Consult Level 5 Diagnoses JACQUELINE (acute kidney injury) N17.9
--- NOTE | 2019-12-08 13:26 | Procedure Note ---
Procedure Note Date of Service December 08, 2019 CENTRAL LINE PROCEDURE NOTE: Procedure: Temporary hemodialysis central venous Line Placement Provider: Rick Shearer MD Indication: Central Drug Administration, Poor Venous Access, Multiple Lab Draws Necessary, etc. Anesthesia: 5 mL's lidocaine 1% Site: Right femoral Estimated blood loss: Less than 5 mL's Consent was signed and placed on the chart prior to procedure. Indication, risks, and benefits were explained at length to the patient's who provided telephone consent which was witnessed by the ICU nurse.. A time-out was completed verifying correct patient, procedure, site, positioning, and implants(s) or special equipment if applicable. Patients right groin was cleansed and draped in the typical sterile fashion using Chloraprep. The common femoral vein and artery were identified using ultrasound. The superficial tissue was anesthetized using 5 mL mL of 1% lidocaine without epinephrine under direct visualization with the ultrasound. After adequate anesthetization was achieved, the right femoral vein was cannulated under direct ultrasound guidance using an introducer needle on a syringe. Good venous blood return was maintained prior to removal of syringe from introducer needle. Using Seldinger Technique, a guide wire was advanced through the introducer needle without resistance. The introducer needle was removed and ultrasound images were obtained of the guide wire within the Internal Jugular Vein and saved to the patients medical record. A small incision was made in penetrating fashion at the guide wire insertion site utilizing an 11 blade scalpel. The serial dilators were advanced to the vessel without resistance. The dilator was exchanged for th e previously prepared, 12 Mongolian 24 cm hemodialysis catheter which was advanced into the vessel without resistance. The guide wire was removed intact from the catheter without issue. Each port was easily flushed with sterile saline. The catheter was sutured in place. BioPatch was applied to the catheter and a sterile Tegaderm dressing was applied over the catheter with careful attention to sterility. Patient tolerated procedure well. No immediate complications were met. Post procedure x-ray was completed, placement was appropriate and no pneumothorax was noted. Images obtained are saved for permanent record Coding CPT Codes Tubes, Drains, and Vasc Access - Tubes, Drains, and Vasc Access: [id number] Insertion of cannula for hemodialysis ([id number]) Tubes, Drains, and Vasc Access - Tubes, Drains, and Vasc Access: [id number] Ultrasonic Guide For Needle Placement ([id number]) [facility] [place] Codes (Charges) Tubes, Drains, and Vasc Access Procedure 1: Tubes, Drains, and Vasc Access: [id number] Insertion of cannula for hemodialysis Procedure 2: Tubes, Drains, and Vasc Access: [id number] Ultrasonic Guide For Needle Placement
[2019-12-08] MEDS: ICU PROTOCOL FOR HYPERGLYCEMIA SCH (14:18)
--- NOTE | 2019-12-08 14:19 | Pharmacy Report ---
Pharmacy Glycemic Short Note 2 - Date of Service December 08, 2019 - Glycemic Short BSG Results (Last 24 hours): 12/07/19 12/08/19 12/08/19 17:27 01:06 04:12 Glucose 206 H POC Glucose (other) 186 H 184 H 12/08/19 10:50 Glucose POC Glucose (other) 183 H OUTPATIENT ANTIDIABETIC REGIMEN: Per med rec: * Lantus 54 units SQ qPM * Glimepiride, linagliptin, and metformin * A1c = 9.4% 12/06/19 ASSESSMENT: * 64 yo male admitted to the ICU for ARDS, COVID-19 testing pending * Pt is requiring pressor support with levophed and maintained on fentanyl and versed via continuous infusion. Temporary dialysis cath placed to maintain fluid balance in the setting of oliguric JACQUELINE with ATN. * PMH significant for T2DM, tobacco use, COPD, ASA and obesity * Since the time of admission, patient has been given two doses of Lantus (20 units on 4/2 PM and 15 units on 4/4 PM). Fasting BSG of 184 mg/dL this am. I would have expected this to be higher based on home dose of Lantus. * will schedule Lantus q12 based on BSG scale * Add Novolog coverage q4h - will utilize stress of 3 dosing due to above stressors and critical illness PLAN FOR INPATIENT GLYCEMIC CONTROL: * Hold outpatient oral diabetes medications * Basal insulin * Lantus 10 units SQ x 1, then BID per scale: * BSG < 140: 10 units * BSG 140-180: 15 units * BSG > 180: 20 units * Bolus insulin * NovoLog per scale ACHS or Q6hrs while NPO * Goal Range: Low 120 mg/dL - High 150 mg/dL * Correction Factor: 15 mg/dL/unit * Nutritional / Prandial insulin per carb ratio of 1 unit per 6 grams CHO consumed PLAN FOR DISCHARGE: * pending
[2019-12-08] MEDS: MIDAZOLAM HCL 125 MG/250 ML BAG IV SCH ×2 (15:50→18:16)
[2019-12-08] MEDS ORDERED: Nursing to Pharmacy Communication ONE (15:58)
[2019-12-08 16:11] LABS: Hepatitis B Surface Ab Quant < 3.10 mIU/mL (>or=10mIU/mL Immune); Hepatitis B Surface Antibody Non-Immune
[2019-12-08] MEDS: NOREPINEPHRINE BIT INJ 16 MG in DEXTROSE 5% 500 ML IV SCH (18:04)
[2019-12-08] MEDS: INSULIN GLARGINE SOLOSTAR 100 UNITS/ML 3 ML PEN SC SCH (19:55)
[2019-12-08] MEDS: ACETAMINOPHEN 1,000 MG/100 ML VIAL IV PRN (21:47)
--- NOTE | 2019-12-08 22:50 | Hospitalist Progress Note ---
Date of Service December 08, 2019 Assessment & Plan (1) Acute respiratory failure with hypoxia: Admit to ICU. B/l pneumonia on chest x-ray. Clinical picture highly concerning for COVID-19 (normal wbc count, lymphopenia, elevated AST, elevated d-dimer, cxr findings, etc). Profoundly hypoxic upon presentation; improved with NIPPV. intubated in ED, early intubation COVID pathway - airborne isolation, contact isolation, etc COVID negative as of 12/07 was in prone position 4/2 for 16 hours, now supine again very guarded prognosis with worsening renal function and high temperatures Dr. Shearer updated the patient's today, she wishes to pursue hemodialysis (2) Suspected 2019 novel coronavirus infection: see above in "acute hypoxic resp failure" biofire negative flu negative COVID sent - negative on 12/07 (3) Sepsis: 2nd to pneumonia high concern of COVID-19 infection but was negative supportive care, IVF, IV antibiotics, etc (4) Bilateral pneumonia: see above blood cx's sent broad spectrum antibiotics (5) Acute renal failure (ARF): 2nd to dehydration/sepsis Normosol hydration serial labs HOLD MIKAEL HOLD HCTZ avoid NSAIDs Cr rising to 4, less urine output today, metabolic acidosis Dr. Ferguson consulted, will plan for HD today (6) Chronic obstructive pulmonary disease: by history, but not on inhalers at home. (7) Current smoker: 50+ years of smoking per patient (8) Gastroesophageal reflux disease: PPI protocol per ICU (9) Gout: no recent issues not on prophylaxis (10) Obstructive sleep apnea: noted (11) Hyperlipidemia: hold STATIN (12) Hypertension: HOLD anti-hypertensives (HCTZ, MIKAEL, norvasc, etc) some literature suggesting some protection with MIKAEL use but need to hold in light of ARF (13) Diabetes mellitus type II, uncontrolled: hyperglycemic ICU protocol defer to pharmacy (14) Hypokalemia: KCL 10meq IV x 1 serial labs mag level not low (15) Hyponatremia: likely due to dehydration/volume depletion and chronic HCTZ use (16) Metabolic encephalopathy: multifactorial - sepsis, pneumonia, possible COVID-19, hyponatremia, hypoxia, etc supportive care (17) DVT prophylaxis: defer selection to critical care team Admission and Anticipated Discharge Date Admission Date: December 05, 2019 Subjective patient removed from isolation after results of COVID 19 came back negative renal function worse, nephrology consults, HD orders placed d/w Dr. Shearer he has updated the patient's of status, guarded prognosis Review of Systems Review of Systems: Unobtainable due to endotracheal tube Physical Exam Physical Exam: did not examine, did not enter room due to COVID rule out, want to preserve PPE and the junior network administrator is examining every day Results & Data Results & Data ([facility]) Vital Signs (Past 12 Hours) Vital Signs Temp Pulse Pulse Resp BP BP Pulse Ox 12/08/19 22:10 70 112/54 L 94 12/08/19 20:00 74 118/59 L 93 12/08/19 19:30 70 21 94 12/08/19 19:09 68 119/61 94 12/08/19 18:10 71 97/51 L 95 12/08/19 17:30 37.7 C H 66 138/69 12/08/19 16:45 67 120/62 12/08/19 16:30 67 122/59 L 12/08/19 16:21 62 116/58 L 92 12/08/19 16:15 63 116/58 L 12/08/19 16:06 64 116/62 92 12/08/19 16:00 65 116/62 12/08/19 15:57 63 22 91 12/08/19 15:51 63 96/48 L 91 12/08/19 15:45 63 96/48 L 12/08/19 15:36 59 L 108/52 L 92 12/08/19 15:30 60 108/52 L 12/08/19 15:21 59 L 112/52 L 92 12/08/19 15:15 59 L 112/52 L 12/08/19 15:06 58 L 118/56 L 93 12/08/19 14:51 60 120/56 L 93 12/08/19 14:36 60 103/52 L 92 12/08/19 14:35 37.4 C 60 12/08/19 13:47 61 113/53 L 91 12/08/19 12:47 65 111/54 L 93 12/08/19 11:28 65 92/48 L 84 L 12/08/19 11:15 64 20 89 L 12/08/19 10:58 65 105/61 88 L Laboratory Results Laboratory Results - last 24 hr 12/05/19 12/08/1920 09:30 01:06 04:12 WBC 9.23 RBC 3.36 L Hgb 9.8 L Hct 29.5 L MCV 87.8 MCH 29.2 MCHC 33.2 RDW Std Deviation 45.3 RDW Coeff of Josué 14.0 Plt Count 373 MPV 8.8 Immature Gran % (Auto) 1.5 Neut % (Auto) 90.0 Lymph % (Auto) 5.9 Cross % (Auto) 2.2 Eos % (Auto) 0.2 Baso % (Auto) 0.2 Immature Gran # (Auto) 0.14 H Neut # (Auto) 8.31 H Lymph # (Auto) 0.54 L Cross # (Auto) 0.20 Eos # (Auto) 0.02 Baso # (Auto) 0.02 PT INR APTT PTT Ratio ABG pH ABG pCO2 ABG pO2 ABG HCO3 ABG O2 Saturation ABG Base Excess Garett Test Barometric Pressure Oxygen Given Sodium Potassium Chloride Carbon Dioxide Anion Gap BUN Creatinine Est Cr Clr Drug Dosing Est GFR ( Amer) Est GFR (Non-Af Amer) BUN/Creatinine Ratio Glucose POC Glucose (other) 184 H Calcium Phosphorus Magnesium Total Bilirubin Direct Bilirubin AST ALT Alkaline Phosphatase Lactate Dehydrogenase Total Protein Albumin Procalcitonin Urine Color Urine Appearance Urine pH Ur Specific [place] Urine Protein Urine Glucose (UA) Urine Ketones Urine Blood Urine Nitrite Urine Bilirubin Urine Urobilinogen Ur Leukocyte Esterase Urine WBC (Auto) Urine RBC (Auto) U Hyaline Cast (Auto) U Epithel Cells (Auto) Urine Bacteria (Auto) Granular Casts Urine Yeast Urine Sperm Adenovirus (PCR) B. pertussis DNA (PCR) B.parapertussis DNA PCR C. pneumoniae DNA (PCR) Coronavirus (PCR) Pending Coronavirus OC43 (PCR) Coronavirus HKU1 (PCR) Coronavirus 229E (PCR) COVID-19 Pt Symptomatic Pending COVID-19 Source Pending Coronavirus NL63 (PCR) Hep Bs Antigen Hep Bs Antibody Hep Bs Antibody, Quant Hep B Core IgM Ab Human Metapneumovir PCR Influenza Type A (PCR) Influenza Type B (PCR) Urine Legionella Ag M. pneumoniae (PCR) Parainfluenza 1 (PCR) Parainfluenza 2 (PCR) Parainfluenza 3 (PCR) Parainfluenza 4 (PCR) RSV (PCR) Entero/Rhino (PCR) SARS Virus RNA (PCR) Pending SARS-CoV-2 RNA (RT-PCR) Pending 12/08/19 12/08/19 12/08/19 04:12 04:12 04:12 WBC RBC Hgb Hct MCV MCH MCHC RDW Std Deviation RDW Coeff of Josué Plt Count MPV Immature Gran % (Auto) Neut % (Auto) Lymph % (Auto) Cross % (Auto) Eos % (Auto) Baso % (Auto) Immature Gran # (Auto) Neut # (Auto) Lymph # (Auto) Cross # (Auto) Eos # (Auto) Baso # (Auto) PT 11.9 INR 1.1 APTT 38.8 H PTT Ratio 1.4 ABG pH ABG pCO2 ABG pO2 ABG HCO3 ABG O2 Saturation ABG Base Excess Garett Test Barometric Pressure Oxygen Given Sodium 127 L Potassium 4.7 D Chloride 94 L Carbon Dioxide 22 Anion Gap 11.0 BUN 83 H Creatinine 4.06 H D Est Cr Clr Drug Dosing 20.7 Est GFR ( Amer) 16.6 Est GFR (Non-Af Amer) 14.3 BUN/Creatinine Ratio 20.6 H Glucose 206 H POC Glucose (other) Calcium 7.7 L Phosphorus 7.5 H D Magnesium 2.3 Total Bilirubin 0.2 Direct Bilirubin 0.2 D AST 59 H ALT 34 Alkaline Phosphatase 80 Lactate Dehydrogenase 593 H Total Protein 6.0 L Albumin 1.1 L Procalcitonin Urine Color Urine Appearance Urine pH Ur Specific [place] Urine Protein Urine Glucose (UA) Urine Ketones Urine Blood Urine Nitrite Urine Bilirubin Urine Urobilinogen Ur Leukocyte Esterase Urine WBC (Auto) Urine RBC (Auto) U Hyaline Cast (Auto) U Epithel Cells (Auto) Urine Bacteria (Auto) Granular Casts Urine Yeast Urine Sperm Adenovirus (PCR) B. pertussis DNA (PCR) B.parapertussis DNA PCR C. pneumoniae DNA (PCR) Coronavirus (PCR) Coronavirus OC43 (PCR) Coronavirus HKU1 (PCR) Coronavirus 229E (PCR) COVID-19 Pt Symptomatic COVID-19 Source Coronavirus NL63 (PCR) Hep Bs Antigen Hep Bs Antibody Hep Bs Antibody, Quant Hep B Core IgM Ab Human Metapneumovir PCR Influenza Type A (PCR) Influenza Type B (PCR) Urine Legionella Ag M. pneumoniae (PCR) Parainfluenza 1 (PCR) Parainfluenza 2 (PCR) Parainfluenza 3 (PCR) Parainfluenza 4 (PCR) RSV (PCR) Entero/Rhino (PCR) SARS Virus RNA (PCR) SARS-CoV-2 RNA (RT-PCR) 12/08/19 12/08/19 12/08/19 04:12 10:41 10:50 WBC RBC Hgb Hct MCV MCH MCHC RDW Std Deviation RDW Coeff of Josué Plt Count MPV Immature Gran % (Auto) Neut % (Auto) Lymph % (Auto) Cross % (Auto) Eos % (Auto) Baso % (Auto) Immature Gran # (Auto) Neut # (Auto) Lymph # (Auto) Cross # (Auto) Eos # (Auto) Baso # (Auto) PT INR APTT PTT Ratio ABG pH 7.27 L ABG pCO2 49 H ABG pO2 70 L ABG HCO3 22 ABG O2 Saturation 91.9 ABG Base Excess -5.2 Garett Test POS Barometric Pressure 732.0 Oxygen Given 50 FIO2 Sodium Potassium Chloride Carbon Dioxide Anion Gap BUN Creatinine Est Cr Clr Drug Dosing Est GFR ( Amer) Est GFR (Non-Af Amer) BUN/Creatinine Ratio Glucose POC Glucose (other) 183 H Calcium Phosphorus Magnesium Total Bilirubin Direct Bilirubin AST ALT Alkaline Phosphatase Lactate Dehydrogenase Total Protein Albumin Procalcitonin 8.82 H Urine Color Urine Appearance Urine pH Ur Specific [place] Urine Protein Urine Glucose (UA) Urine Ketones Urine Blood Urine Nitrite Urine Bilirubin Urine Urobilinogen Ur Leukocyte Esterase Urine WBC (Auto) Urine RBC (Auto) U Hyaline Cast (Auto) U Epithel Cells (Auto) Urine Bacteria (Auto) Granular Casts Urine Yeast Urine Sperm Adenovirus (PCR) B. pertussis DNA (PCR) B.parapertussis DNA PCR C. pneumoniae DNA (PCR) Coronavirus (PCR) Coronavirus OC43 (PCR) Coronavirus HKU1 (PCR) Coronavirus 229E (PCR) COVID-19 Pt Symptomatic COVID-19 Source Coronavirus NL63 (PCR) Hep Bs Antigen Hep Bs Antibody Hep Bs Antibody, Quant Hep B Core IgM Ab Human Metapneumovir PCR Influenza Type A (PCR) Influenza Type B (PCR) Urine Legionella Ag M. pneumoniae (PCR) Parainfluenza 1 (PCR) Parainfluenza 2 (PCR) Parainfluenza 3 (PCR) Parainfluenza 4 (PCR) RSV (PCR) Entero/Rhino (PCR) SARS Virus RNA (PCR) SARS-CoV-2 RNA (RT-PCR) 12/08/19 12/08/19 12/08/19 11:15 11:15 11:30 WBC RBC Hgb Hct MCV MCH MCHC RDW Std Deviation RDW Coeff of Josué Plt Count MPV Immature Gran % (Auto) Neut % (Auto) Lymph % (Auto) Cross % (Auto) Eos % (Auto) Baso % (Auto) Immature Gran # (Auto) Neut # (Auto) Lymph # (Auto) Cross # (Auto) Eos # (Auto) Baso # (Auto) PT INR APTT PTT Ratio ABG pH ABG pCO2 ABG pO2 ABG HCO3 ABG O2 Saturation ABG Base Excess Garett Test Barometric Pressure Oxygen Given Sodium Potassium Chloride Carbon Dioxide Anion Gap BUN Creatinine Est Cr Clr Drug Dosing Est GFR ( Amer) Est GFR (Non-Af Amer) BUN/Creatinine Ratio Glucose POC Glucose (other) Calcium Phosphorus Magnesium Total Bilirubin Direct Bilirubin AST ALT Alkaline Phosphatase Lactate Dehydrogenase Total Protein Albumin Procalcitonin Urine Color Dark Yellow Urine Appearance Cloudy A Urine pH 5.0 Ur Specific [place] 1.027 Urine Protein 2+ H Urine Glucose (UA) Negative Urine Ketones Trace H Urine Blood 3+ H Urine Nitrite Negative Urine Bilirubin Negative Urine Urobilinogen Negative Ur Leukocyte Esterase Negative Urine WBC (Auto) 10-30 H Urine RBC (Auto) 5-10 H U Hyaline Cast (Auto) 1-5 U Epithel Cells (Auto) 10-20 H Urine Bacteria (Auto) Negative Granular Casts 1-5 H Urine Yeast Not Reportable Urine Sperm Present A Adenovirus (PCR) Not Detected B. pertussis DNA (PCR) Not Detected B.parapertussis DNA PCR Not Detected C. pneumoniae DNA (PCR) Not Detected Coronavirus (PCR) Coronavirus OC43 (PCR) Not Detected Coronavirus HKU1 (PCR) Not Detected Coronavirus 229E (PCR) Not Detected COVID-19 Pt Symptomatic COVID-19 Source Coronavirus NL63 (PCR) Not Detected Hep Bs Antigen Hep Bs Antibody Hep Bs Antibody, Quant Hep B Core IgM Ab Human Metapneumovir PCR Not Detected Influenza Type A (PCR) Not Detected Influenza Type B (PCR) Not Detected Urine Legionella Ag Pending M. pneumoniae (PCR) Not Detected Parainfluenza 1 (PCR) Not Detected Parainfluenza 2 (PCR) Not Detected Parainfluenza 3 (PCR) Not Detected Parainfluenza 4 (PCR) Not Detected RSV (PCR) Not Detected Entero/Rhino (PCR) Not Detected SARS Virus RNA (PCR) SARS-CoV-2 RNA (RT-PCR) 12/08/19 12/08/19 12/08/19 14:09 14:09 14:09 WBC RBC Hgb Hct MCV MCH MCHC RDW Std Deviation RDW Coeff of Josué Plt Count MPV Immature Gran % (Auto) Neut % (Auto) Lymph % (Auto) Cross % (Auto) Eos % (Auto) Baso % (Auto) Immature Gran # (Auto) Neut # (Auto) Lymph # (Auto) Cross # (Auto) Eos # (Auto) Baso # (Auto) PT INR APTT PTT Ratio ABG pH ABG pCO2 ABG pO2 ABG HCO3 ABG O2 Saturation ABG Base Excess Garett Test Barometric Pressure Oxygen Given Sodium Potassium Chloride Carbon Dioxide Anion Gap BUN Creatinine Est Cr Clr Drug Dosing Est GFR ( Amer) Est GFR (Non-Af Amer) BUN/Creatinine Ratio Glucose POC Glucose (other) Calcium Phosphorus Magnesium Total Bilirubin Direct Bilirubin AST ALT Alkaline Phosphatase Lactate Dehydrogenase Total Protein Albumin Procalcitonin Urine Color Urine Appearance Urine pH Ur Specific [place] Urine Protein Urine Glucose (UA) Urine Ketones Urine Blood Urine Nitrite Urine Bilirubin Urine Urobilinogen Ur Leukocyte Esterase Urine WBC (Auto) Urine RBC (Auto) U Hyaline Cast (Auto) U Epithel Cells (Auto) Urine Bacteria (Auto) Granular Casts Urine Yeast Urine Sperm Adenovirus (PCR) B. pertussis DNA (PCR) B.parapertussis DNA PCR C. pneumoniae DNA (PCR) Coronavirus (PCR) Coronavirus OC43 (PCR) Coronavirus HKU1 (PCR) Coronavirus 229E (PCR) COVID-19 Pt Symptomatic COVID-19 Source Coronavirus NL63 (PCR) Hep Bs Antigen Neg Hep Bs Antibody Non-Immune Hep Bs Antibody, Quant < 3.10 L Hep B Core IgM Ab Pending Human Metapneumovir PCR Influenza Type A (PCR) Influenza Type B (PCR) Urine Legionella Ag M. pneumoniae (PCR) Parainfluenza 1 (PCR) Parainfluenza 2 (PCR) Parainfluenza 3 (PCR) Parainfluenza 4 (PCR) RSV (PCR) Entero/Rhino (PCR) SARS Virus RNA (PCR) SARS-CoV-2 RNA (RT-PCR) 12/08/19 12/08/19 18:08 19:42 WBC RBC Hgb Hct MCV MCH MCHC RDW Std Deviation RDW Coeff of Josué Plt Count MPV Immature Gran % (Auto) Neut % (Auto) Lymph % (Auto) Cross % (Auto) Eos % (Auto) Baso % (Auto) Immature Gran # (Auto) Neut # (Auto) Lymph # (Auto) Cross # (Auto) Eos # (Auto) Baso # (Auto) PT INR APTT PTT Ratio ABG pH ABG pCO2 ABG pO2 ABG HCO3 ABG O2 Saturation ABG Base Excess Garett Test Barometric Pressure Oxygen Given Sodium Potassium Chloride Carbon Dioxide Anion Gap BUN Creatinine Est Cr Clr Drug Dosing Est GFR ( Amer) Est GFR (Non-Af Amer) BUN/Creatinine Ratio Glucose POC Glucose (other) 150 H 149 H Calcium Phosphorus Magnesium Total Bilirubin Direct Bilirubin AST ALT Alkaline Phosphatase Lactate Dehydrogenase Total Protein Albumin Procalcitonin Urine Color Urine Appearance Urine pH Ur Specific [place] Urine Protein Urine Glucose (UA) Urine Ketones Urine Blood Urine Nitrite Urine Bilirubin Urine Urobilinogen Ur Leukocyte Esterase Urine WBC (Auto) Urine RBC (Auto) U Hyaline Cast (Auto) U Epithel Cells (Auto) Urine Bacteria (Auto) Granular Casts Urine Yeast Urine Sperm Adenovirus (PCR) B. pertussis DNA (PCR) B.parapertussis DNA PCR C. pneumoniae DNA (PCR) Coronavirus (PCR) Coronavirus OC43 (PCR) Coronavirus HKU1 (PCR) Coronavirus 229E (PCR) COVID-19 Pt Symptomatic COVID-19 Source Coronavirus NL63 (PCR) Hep Bs Antigen Hep Bs Antibody Hep Bs Antibody, Quant Hep B Core IgM Ab Human Metapneumovir PCR Influenza Type A (PCR) Influenza Type B (PCR) Urine Legionella Ag M. pneumoniae (PCR) Parainfluenza 1 (PCR) Parainfluenza 2 (PCR) Parainfluenza 3 (PCR) Parainfluenza 4 (PCR) RSV (PCR) Entero/Rhino (PCR) SARS Virus RNA (PCR) SARS-CoV-2 RNA (RT-PCR) Medications Administered Current Inpatient Medications Dextrose (Dextrose 50%) 25 - 50 ml IV UD PRN; Protocol PRN Reason: Hypoglycemia Protocol Stop: 01/04/20 17:29 Fentanyl Citrate (Fentanyl Bolus From Bag) 50 mcg IV Q60M PRN PRN Reason: Pain or Agitation Stop: 12/19/19 13:06 Last Admin: 12/06/19 00:25 Dose: 50 mcg Documented by: Glucagon (Glucagen) 1 mg IM UD PRN; Protocol PRN Reason: Hypoglycemia Protocol Stop: 01/04/20 17:29 Glucose (Glucose 40%) 15 - 30 gm PO UD PRN; Protocol PRN Reason: Hypoglycemia Protocol Stop: 01/04/20 17:29 Glucose (Dex4 Glucose) 4 - 8 tabs PO UD PRN; Protocol PRN Reason: Hypoglycemia Protocol Stop: 01/04/20 17:29 Heparin Sodium (Beef Lung) (Heparin Sod 10 Unit/Ml Flush) 5 ml FLUSH PRN PRN PRN Reason: Flush Stop: 01/04/20 22:56 Last Admin: 12/06/19 09:10 Dose: 5 ml Documented by: Heparin Sodium (Porcine) (Heparin Sodium (Porcine)) 5,000 units SQ Q12 KEARA Stop: 01/04/20 20:59 Last Admin: 12/08/19 19:58 Dose: 5,000 units Documented by: Fentanyl Citrate (Fentanyl Drip) 1,250 mcg in 250 mls @ 20 mls/hr IV .[id number] [facility]; Protocol Stop: 12/19/19 13:14 Last Admin: 12/08/19 21:47 Dose: 100 mcg/hr, 20 mls/hr Documented by: Midazolam HCl (Versed) 125 mg in 250 mls @ 12 mls/hr IV .[id number] [facility]; Protocol Stop: 01/04/20 13:14 Last Titration: 12/08/19 19:07 Dose: 6 mg/hr, 12 mls/hr Documented by: Famotidine 20 mg/ Syringe 5 mls @ 2.5 mls/min IV DAILY@0900 [facility] Stop: 01/06/20 08:59 Last Admin: 12/08/19 09:23 Dose: 2.5 mls/min Documented by: Norepinephrine Bitartrate 16 (mg/ Dextrose) 516 mls @ 14.751 mls/hr IV .Q24H [facility]; Protocol Stop: 01/05/20 03:44 Last Titration: 12/08/19 19:07 Dose: 0.07 mcg/kg/min, 14.8 mls/hr Documented by: Acetaminophen (Ofirmev) 1,000 mg in 100 mls @ 400 mls/hr IV Q8H PRN PRN Reason: Fever Stop: 12/11/19 21:31 Last Admin: 12/08/19 21:47 Dose: 400 mls/hr Documented by: Insulin Aspart (Novolog Flexpen) 0 units SQ Q4 KEARA Stop: 01/07/20 12:14 Last Admin: 12/08/19 19:54 Dose: Not Given Documented by: Insulin Glargine (Lantus Solostar Pen) 0 units SC BID KEARA; Protocol Stop: 01/07/20 20:59 Last Admin: 12/08/19 19:55 Dose: 15 units Documented by: Midazolam HCl (Versed Bolus From Bag) 2 mg IV Q60M PRN PRN Reason: Sedation Stop: 01/04/20 13:06 Last Admin: 12/06/19 08:45 Dose: 2 mg Documented by: Miscellaneous (Carbohydrates For Hypoglycemia) 15 - 30 gm PO UD PRN PRN Reason: Hypoglycemia Treatment Stop: 01/04/20 17:29 Miscellaneous (Icu Protocol For Hyperglycemia) 1 ea N/A QAM [facility]; Protocol Stop: 12/10/19 11:29 Last Admin: 12/08/19 14:18 Dose: 1 ea Documented by: Miscellaneous Information (Consult Glycemic Management Pharmacy) 1 ea N/A UD PRN PRN Reason: Consult Stop: 01/07/20 12:04 Multi-Ingredient Cream (Lacri-Lube) 1 appln OP Q4H PRN PRN Reason: Undecided Stop: 01/04/20 16:44 PG Care Time/CCT Total # of Minutes Spent Total Time Spent with Patient: Total time spent is greater than 50% in coordination of care (as documented) at patient's floor/unit and/or counseling patient: Coding Level of Care Code None Diagnoses Acute respiratory failure with hypoxia J96.01 Suspected 2019 novel coronavirus infection R68.89 Sepsis A41.9 Bilateral pneumonia J18.9 Lung location: lower lobe of lung Pneumonia type: due to unspecified organism Acute renal failure (ARF) N17.9 Acute renal failure type: unspecified Chronic obstructive pulmonary disease J44.9 Current smoker F17.200 Gastroesophageal reflux disease K21.9 Gout M10.9 Obstructive sleep apnea G47.33 Hyperlipidemia E78.5 Hypertension I10 Diabetes mellitus type II, uncontrolled E11.65 Hypokalemia E87.6 Hyponatremia E87.1 Metabolic encephalopathy G93.41 DVT prophylaxis Z29.9 (1) Bilateral pneumonia Lung location: lower lobe of lung Pneumonia type: due to unspecified organism Qualified Code(s): J18.9 - Pneumonia, unspecified organism (2) Acute renal failure (ARF) Acute renal failure type: unspecified Qualified Code(s): N17.9 - Acute kidney failure, unspecified
[2019-12-09 04:19] LABS: Hematocrit (blood only) 30.2 % (42-52); Hemoglobin 10.1 g/dL (14.0-18.0); Mean Corpuscular Hemoglobin 29.5 pg (25-34); Mean Corpuscular Hgb Conc 33.4 g/dL (32-36); Mean Corpuscular Volume 88.3 fL (80-100); Mean Platelet Volume 9.2 fL (7.4-10.4); Nucleated RBC # (auto) 0.02 K/uL (0-0); Nucleated RBC % (auto) 0.3 %; Platelet Count 377 K/uL (130-400); RDW Coefficient of Variation 14.4 % (11.5-14.5); RDW Standard Deviation 46.6 fL (36.4-46.3); Red Blood Count 3.42 M/uL (4.7-6.1)
[2019-12-09] MEDS: INSULIN ASPART 100 UNITS/ML 3 ML PEN SQ SCH ×5 (04:21→20:30)
[2019-12-09 04:28] LABS: INR 1.3 (0.9-1.1); Prothrombin Time 13.5 Seconds (9.0-12.0)
[2019-12-09 04:48] LABS: Basophils # (auto) 0.02 K/uL (0-0.2); Basophils % (auto) 0.2 %; Eosinophils # (auto) 0.05 K/uL (0-0.5); Eosinophils % (auto) 0.5 %; Immature Granulocytes # (auto) 0.14 K/uL (0.00-0.02); Immature Granulocytes % (auto) 1.5 %; Lymphocytes # (auto) 0.48 K/uL (1.2-3.4); Lymphocytes % (auto) 5.1 %; Monocytes # (auto) 0.33 K/uL (0.11-0.59); Monocytes % (auto) 3.5 %; Neutrophils # (auto) 8.38 K/uL (1.4-6.5); Neutrophils % (auto) 89.2 %; RBC Morphology Unremarkable
[2019-12-09 04:54] LABS: Albumin Level 0.9 gm/dl (3.4-5.0); Bilirubin Direct 0.1 mg/dl (0-0.2); Bilirubin,Total 0.3 mg/dl (0.2-1); Calcium 7.2 mg/dl (8.5-10.1); Est GFR (African American) 17.7; Est GFR (Non-African American) 15.3; Potassium 4.1 mmol/L (3.5-5.1); Total Protein 5.6 gm/dl (6.4-8.2)
[2019-12-09 05:01] LABS: Phosphorus 7.2 mg/dl (2.5-4.9)
[2019-12-09 06:01] LABS: iSTAT Art Bld Gas pCO2 Correct 60 mmHg (35-46); iSTAT Art Bld Gas pH Corrected 7.226 (7.35-7.45); iSTAT Arterial Blood Gas HCO3 25 meg/L (19-24); iSTAT Arterial Blood Gas pCO2 60 mmHg (35-46); iSTAT Arterial Blood Gas pH 7.22 (7.35-7.45); iSTAT Arterial Blood Gas pO2 88 mmHg (80-95); iSTAT Arterial Blood Gas pO2 C 87; iSTAT Carbon Dioxide 27 mmol/L (24-31); iSTAT Hematocrit 30 % (42-52); iSTAT Hemoglobin 10.2 g/dl (14.0-18.0); iSTAT Potassium 4.7 mmol/L (3.3-5.0); iSTAT Site Art Line; iSTAT Sodium 129 mmol/L (135-144)
--- NOTE | 2019-12-09 07:20 | XRay Report ---
XR chest 1V portable HISTORY: 64 years-old Male f/u acute respiratory failure COMPARISON: Chest radiograph 12/08/2019 TECHNIQUE: Portable AP view of the chest FINDINGS: Endotracheal tube overlies the midline, 4.2 cm superior to the isra. Calcified plaque of the thorac ic aortic arch. Cardiomegaly. No pneumothorax or large pleural effusion. Linear vascular congestion w ith midlung zone and bibasilar interstitial coarsening redemonstrated. Patchy ill-defined left greate r than right bibasilar airspace opacities. Catheter in the left subclavian distribution appears unch anged. Unchanged positioning of the enteric tube. Bones appear grossly intact. IMPRESSION: 1. Lines and tubes as above. 2. Persistent interstitial coarsening with bibasilar opacities suspicious for pneumonia. Superimposed pulmonary vascular congestion may also be present. ACT 112: Negative or not required by law. The above report was generated using voice recognition software. It may contain grammatical, syntax o r spelling errors. Electronically signed by: Darin Daniel M.D. 12/09/2019 7:19 AM
[2019-12-09] MEDS: MIDAZOLAM HCL 125 MG/250 ML BAG IV SCH ×3 (08:13→12:20)
[2019-12-09] MEDS: HEPARIN SOD 5,000 UNIT/0.5 ML VIAL SQ SCH ×2 (08:13→21:41)
[2019-12-09] MEDS: INSULIN GLARGINE SOLOSTAR 100 UNITS/ML 3 ML PEN SC SCH ×2 (08:14→21:41)
[2019-12-09] MEDS: FAMOTIDINE 20 MG in SYRINGE 3 ML IV SCH (08:24)
[2019-12-09] MEDS ORDERED: SODIUM CHLORIDE 0.9% 1000ML 1,000 ML IV PRN (08:34)
[2019-12-09] MEDS ORDERED: HEPARIN SOD (PORCINE) 1000 UNIT/ML 10 ML VIAL IV ONE (08:34)
[2019-12-09] MEDS: ICU PROTOCOL FOR HYPERGLYCEMIA SCH (08:36)
[2019-12-09] MEDS: ARTIFICIAL TEARS OP OINT 3.5 GM TUBE OP PRN (08:41)
[2019-12-09] MEDS: DOXYCYCLINE HYCLATE 100 MG in DEXTROSE 5% 100 ML IV SCH ×2 (08:45→21:41)
[2019-12-09] MEDS: cefTRIAXone SODIUM 2,000 MG in DEXTROSE 5% 50 ML IV SCH (08:45)
[2019-12-09 09:21] LABS: iSTAT Art Bld Gas pCO2 Correct 50 mmHg (35-46); iSTAT Art Bld Gas pH Corrected 7.283 (7.35-7.45); iSTAT Arterial Blood Gas HCO3 23 meg/L (19-24); iSTAT Arterial Blood Gas pCO2 49 mmHg (35-46); iSTAT Arterial Blood Gas pH 7.29 (7.35-7.45); iSTAT Arterial Blood Gas pO2 69 mmHg (80-95); iSTAT Arterial Blood Gas pO2 C 70; iSTAT Carbon Dioxide 25 mmol/L (24-31); iSTAT Hematocrit 31 % (42-52); iSTAT Hemoglobin 10.5 g/dl (14.0-18.0); iSTAT Potassium 4.5 mmol/L (3.3-5.0); iSTAT Site Art Line; iSTAT Sodium 128 mmol/L (135-144)
--- NOTE | 2019-12-09 11:00 | Nephrology Progress Note ---
Date of Service December 09, 2019 Assessment & Plan (1) JACQUELINE (acute kidney injury): Mr. Hinkle is a 64-year-old male with DM, hypertension, ASA, obesity, and COPD. Baseline creatinine in 2019 was 1.4 mg/dL. Creatinine on admission 2.7 mg/dL. The patient has oliguric JACQUELINE with ATN. Ischemic ATN can be attributed to hemodynamic instability and hypoxia. Renal ultrasound demonstrates a couple of renal cysts in both kidneys. There is not significant cortical atrophy. There is no significant history of CKD documented. Urine microscopy is notable for 2+ protein, microscopic hematuria, and pyuria. Urine culture negative. At this time, we cannot exclude acute GN. However, clinical presentation very atypical. No evidence of TMA. Clinical presentation not consistent with AIN. Serologic evaluation for GN is pending. Noted that there has not been significant evidence of systemic vasculitis. Despite preliminary testing negative for COVID 19, the clinic presentation is consistent with this potential diagnosis. Femoral HD catheter was placed by the self sealing fuel tank builder at the bedside 12/08/19. Catheter is functioning well. Qb adequate. Heparin provided with HD. First HD treatment performed 12/08/19. Second treatment is being performed today. BP acceptable. UF goal increased to 3 L. Will evaluate tomorrow AM prior to additional HD but I would anticipate a 3rd treatment tomorrow. Lisinopril, HCTZ, and metformin have been appropriately held. Antihypertensives held given persistent hypotension. Levophed infusion appropriately continued for BP support. Medications are currently appropriately dosed for kidney dysfunction and IHD. No dosing adjustments on ceftriaxone or doxy required. Subjective No acute events overnight. The patient remains sedated + intubated with FIO2 60% and high PEEP on vent. Tolerated HD well yesterday. UF 1 L. Oliguric with 250 ml of urine output yesterday. Levophed infusion continued for BP support. I discussed the plan of care with the ICU team and dialysis nurse at the bedside before and during hemodialysis. Qb was adequate. No complications noted with HD today. BP acceptable. UF goal increased to 3 L as tolerated. I did not directly examine the patient due to COVID pandemic. Review of Systems Review of Systems: Unobtainable due to endotracheal tube and Unobtainable due to reduced consciousness Results & Data Vital Signs (Past 12 Hours) Vital Signs Temp Pulse Pulse Resp BP Pulse Ox 12/09/19 10:40 60 136/50 L 12/09/19 10:20 63 100/43 L 12/09/19 10:12 61 24 90 12/09/19 10:00 60 103/43 L 12/09/19 09:40 37.5 C 60 12/09/19 07:01 59 L 26 H 96 12/09/19 06:00 67 92 12/09/19 05:35 24 12/09/19 05:10 59 L 103/52 L 95 12/09/19 05:00 60 94 12/09/19 04:10 59 L 107/60 94 12/09/19 04:00 59 L 95 12/09/19 03:30 62 20 95 12/09/19 03:10 60 101/53 L 95 12/09/19 03:00 60 101/53 L 95 12/09/19 02:30 61 94 12/09/19 02:10 60 107/51 L 95 12/09/19 02:00 60 96/57 L 95 12/09/19 01:10 61 113/55 L 95 12/09/19 01:00 61 94 12/09/19 00:10 62 108/54 L 95 12/09/19 00:00 63 94 12/08/19 23:43 64 21 94 12/08/19 23:30 66 94 Laboratory Results Laboratory Results - last 24 hr 12/05/19 12/08/19 12/08/19 Unknown 10:41 10:50 WBC RBC Hgb POC Hgb Hct POC Hct MCV MCH MCHC RDW Std Deviation RDW Coeff of Josué Plt Count MPV Immature Gran % (Auto) Neut % (Auto) Lymph % (Auto) [place] % (Auto) Eos % (Auto) Baso % (Auto) Immature Gran # (Auto) Neut # (Auto) Lymph # (Auto) [place] # (Auto) Eos # (Auto) Baso # (Auto) Absolute Nucleated RBC Nucleated RBC % (auto) RBC Morphology PT INR Sample Site POC pH POC pCO2 POC pO2 POC HCO3 POC Total CO2 POC Base Excess ABG pH (Temp Correct) ABG pCO2 (Temp Corrct POC ABG pO2 at Pt Temp Garett Test O2 Delivery Device POC O2 Rate Minute Ventilation Tidal Volume PEEP POC Sodium Sodium POC Potassium Potassium Chloride Carbon Dioxide Anion Gap BUN Creatinine Est Cr Clr Drug Dosing Est GFR ( Amer) Est GFR (Non-Af Amer) BUN/Creatinine Ratio Glucose POC Glucose (other) 183 H Calcium Phosphorus Magnesium Total Bilirubin Direct Bilirubin AST ALT Alkaline Phosphatase Total Protein Albumin Procalcitonin 8.82 H Urine Color Urine Appearance Urine pH Ur Specific Raymond Urine Protein Urine Glucose (UA) Urine Ketones Urine Blood Urine Nitrite Urine Bilirubin Urine Urobilinogen Ur Leukocyte Esterase Urine WBC (Auto) Urine RBC (Auto) U Hyaline Cast (Auto) U Epithel Cells (Auto) Urine Bacteria (Auto) Granular Casts Urine Yeast Urine Sperm AAKASH Screen Anti-Proteinase 3 Anti-Myeloperoxidase ANCA Glomerular Base Memb Ab Complement C3 Complement C4 Tot Complement (CH50) Adenovirus (PCR) B. pertussis DNA (PCR) B.parapertussis DNA PCR C. pneumoniae DNA (PCR) Coronavirus OC43 (PCR) Coronavirus HKU1 (PCR) Coronavirus 229E (PCR) Nasopharyn COVID-19 PCR NOT DETECTED Sputum COVID-19 PCR Not Reportable Coronavirus NL63 (PCR) Hep Bs Antigen Hep Bs Antibody Hep Bs Antibody, Quant Hep B Core IgM Ab Hepatitis Be Antibody Hepatitis C Antibody Human Metapneumovir PCR Influenza Type A (PCR) Influenza Type B (PCR) Urine Legionella Ag M. pneumoniae (PCR) Parainfluenza 1 (PCR) Parainfluenza 2 (PCR) Parainfluenza 3 (PCR) Parainfluenza 4 (PCR) RSV (PCR) Entero/Rhino (PCR) 12/08/19 12/08/19 12/08/19 11:15 11:15 11:30 WBC RBC Hgb POC Hgb Hct POC Hct MCV MCH MCHC RDW Std Deviation RDW Coeff of Josué Plt Count MPV Immature Gran % (Auto) Neut % (Auto) Lymph % (Auto) [place] % (Auto) Eos % (Auto) Baso % (Auto) Immature Gran # (Auto) Neut # (Auto) Lymph # (Auto) [place] # (Auto) Eos # (Auto) Baso # (Auto) Absolute Nucleated RBC Nucleated RBC % (auto) RBC Morphology PT INR Sample Site POC pH POC pCO2 POC pO2 POC HCO3 POC Total CO2 POC Base Excess ABG pH (Temp Correct) ABG pCO2 (Temp Corrct POC ABG pO2 at Pt Temp Garett Test O2 Delivery Device POC O2 Rate Minute Ventilation Tidal Volume PEEP POC Sodium Sodium POC Potassium Potassium Chloride Carbon Dioxide Anion Gap BUN Creatinine Est Cr Clr Drug Dosing Est GFR ( Amer) Est GFR (Non-Af Amer) BUN/Creatinine Ratio Glucose POC Glucose (other) Calcium Phosphorus Magnesium Total Bilirubin Direct Bilirubin AST ALT Alkaline Phosphatase Total Protein Albumin Procalcitonin Urine Color Dark Yellow Urine Appearance Cloudy A Urine pH 5.0 Ur Specific Raymond 1.027 Urine Protein 2+ H Urine Glucose (UA) Negative Urine Ketones Trace H Urine Blood 3+ H Urine Nitrite Negative Urine Bilirubin Negative Urine Urobilinogen Negative Ur Leukocyte Esterase Negative Urine WBC (Auto) 10-30 H Urine RBC (Auto) 5-10 H U Hyaline Cast (Auto) 1-5 U Epithel Cells (Auto) 10-20 H Urine Bacteria (Auto) Negative Granular Casts 1-5 H Urine Yeast Not Reportable Urine Sperm Present A AAKASH Screen Anti-Proteinase 3 Anti-Myeloperoxidase ANCA Glomerular Base Memb Ab Complement C3 Complement C4 Tot Complement (CH50) Adenovirus (PCR) Not Detected B. pertussis DNA (PCR) Not Detected B.parapertussis DNA PCR Not Detected C. pneumoniae DNA (PCR) Not Detected Coronavirus OC43 (PCR) Not Detected Coronavirus HKU1 (PCR) Not Detected Coronavirus 229E (PCR) Not Detected Nasopharyn COVID-19 PCR Sputum COVID-19 PCR Coronavirus NL63 (PCR) Not Detected Hep Bs Antigen Hep Bs Antibody Hep Bs Antibody, Quant Hep B Core IgM Ab Hepatitis Be Antibody Hepatitis C Antibody Human Metapneumovir PCR Not Detected Influenza Type A (PCR) Not Detected Influenza Type B (PCR) Not Detected Urine Legionella Ag Pending M. pneumoniae (PCR) Not Detected Parainfluenza 1 (PCR) Not Detected Parainfluenza 2 (PCR) Not Detected Parainfluenza 3 (PCR) Not Detected Parainfluenza 4 (PCR) Not Detected RSV (PCR) Not Detected Entero/Rhino (PCR) Not Detected 12/08/19 12/08/19 12/08/19 14:09 14:09 14:09 WBC RBC Hgb POC Hgb Hct POC Hct MCV MCH MCHC RDW Std Deviation RDW Coeff of Josué Plt Count MPV Immature Gran % (Auto) Neut % (Auto) Lymph % (Auto) [place] % (Auto) Eos % (Auto) Baso % (Auto) Immature Gran # (Auto) Neut # (Auto) Lymph # (Auto) [place] # (Auto) Eos # (Auto) Baso # (Auto) Absolute Nucleated RBC Nucleated RBC % (auto) RBC Morphology PT INR Sample Site POC pH POC pCO2 POC pO2 POC HCO3 POC Total CO2 POC Base Excess ABG pH (Temp Correct) ABG pCO2 (Temp Corrct POC ABG pO2 at Pt Temp Garett Test O2 Delivery Device POC O2 Rate Minute Ventilation Tidal Volume PEEP POC Sodium Sodium POC Potassium Potassium Chloride Carbon Dioxide Anion Gap BUN Creatinine Est Cr Clr Drug Dosing Est GFR ( Amer) Est GFR (Non-Af Amer) BUN/Creatinine Ratio Glucose POC Glucose (other) Calcium Phosphorus Magnesium Total Bilirubin Direct Bilirubin AST ALT Alkaline Phosphatase Total Protein Albumin Procalcitonin Urine Color Urine Appearance Urine pH Ur Specific Raymond Urine Protein Urine Glucose (UA) Urine Ketones Urine Blood Urine Nitrite Urine Bilirubin Urine Urobilinogen Ur Leukocyte Esterase Urine WBC (Auto) Urine RBC (Auto) U Hyaline Cast (Auto) U Epithel Cells (Auto) Urine Bacteria (Auto) Granular Casts Urine Yeast Urine Sperm AAKASH Screen Anti-Proteinase 3 Anti-Myeloperoxidase ANCA Glomerular Base Memb Ab Complement C3 Complement C4 Tot Complement (CH50) Adenovirus (PCR) B. pertussis DNA (PCR) B.parapertussis DNA PCR C. pneumoniae DNA (PCR) Coronavirus OC43 (PCR) Coronavirus HKU1 (PCR) Coronavirus 229E (PCR) Nasopharyn COVID-19 PCR Sputum COVID-19 PCR Coronavirus NL63 (PCR) Hep Bs Antigen Neg Hep Bs Antibody Non-Immune Hep Bs Antibody, Quant < 3.10 L Hep B Core IgM Ab Pending Hepatitis Be Antibody Hepatitis C Antibody Human Metapneumovir PCR Influenza Type A (PCR) Influenza Type B (PCR) Urine Legionella Ag M. pneumoniae (PCR) Parainfluenza 1 (PCR) Parainfluenza 2 (PCR) Parainfluenza 3 (PCR) Parainfluenza 4 (PCR) RSV (PCR) Entero/Rhino (PCR) 12/08/19 12/08/19 12/08/19 18:08 19:42 23:41 WBC RBC Hgb POC Hgb Hct POC Hct MCV MCH MCHC RDW Std Deviation RDW Coeff of Josué Plt Count MPV Immature Gran % (Auto) Neut % (Auto) Lymph % (Auto) [place] % (Auto) Eos % (Auto) Baso % (Auto) Immature Gran # (Auto) Neut # (Auto) Lymph # (Auto) [place] # (Auto) Eos # (Auto) Baso # (Auto) Absolute Nucleated RBC Nucleated RBC % (auto) RBC Morphology PT INR Sample Site POC pH POC pCO2 POC pO2 POC HCO3 POC Total CO2 POC Base Excess ABG pH (Temp Correct) ABG pCO2 (Temp Corrct POC ABG pO2 at Pt Temp Garett Test O2 Delivery Device POC O2 Rate Minute Ventilation Tidal Volume PEEP POC Sodium Sodium POC Potassium Potassium Chloride Carbon Dioxide Anion Gap BUN Creatinine Est Cr Clr Drug Dosing Est GFR ( Amer) Est GFR (Non-Af Amer) BUN/Creatinine Ratio Glucose POC Glucose (other) 150 H 149 H 156 H Calcium Phosphorus Magnesium Total Bilirubin Direct Bilirubin AST ALT Alkaline Phosphatase Total Protein Albumin Procalcitonin Urine Color Urine Appearance Urine pH Ur Specific Raymond Urine Protein Urine Glucose (UA) Urine Ketones Urine Blood Urine Nitrite Urine Bilirubin Urine Urobilinogen Ur Leukocyte Esterase Urine WBC (Auto) Urine RBC (Auto) U Hyaline Cast (Auto) U Epithel Cells (Auto) Urine Bacteria (Auto) Granular Casts Urine Yeast Urine Sperm AAKASH Screen Anti-Proteinase 3 Anti-Myeloperoxidase ANCA Glomerular Base Memb Ab Complement C3 Complement C4 Tot Complement (CH50) Adenovirus (PCR) B. pertussis DNA (PCR) B.parapertussis DNA PCR C. pneumoniae DNA (PCR) Coronavirus OC43 (PCR) Coronavirus HKU1 (PCR) Coronavirus 229E (PCR) Nasopharyn COVID-19 PCR Sputum COVID-19 PCR Coronavirus NL63 (PCR) Hep Bs Antigen Hep Bs Antibody Hep Bs Antibody, Quant Hep B Core IgM Ab Hepatitis Be Antibody Hepatitis C Antibody Human Metapneumovir PCR Influenza Type A (PCR) Influenza Type B (PCR) Urine Legionella Ag M. pneumoniae (PCR) Parainfluenza 1 (PCR) Parainfluenza 2 (PCR) Parainfluenza 3 (PCR) Parainfluenza 4 (PCR) RSV (PCR) Entero/Rhino (PCR) 12/09/19 12/09/19 12/09/19 04:00 04:00 04:00 WBC 9.40 RBC 3.42 L Hgb 10.1 L POC Hgb Hct 30.2 L POC Hct MCV 88.3 MCH 29.5 MCHC 33.4 RDW Std Deviation 46.6 H RDW Coeff of Josué 14.4 Plt Count 377 MPV 9.2 Immature Gran % (Auto) 1.5 Neut % (Auto) 89.2 Lymph % (Auto) 5.1 Lincoln % (Auto) 3.5 Eos % (Auto) 0.5 Baso % (Auto) 0.2 Immature Gran # (Auto) 0.14 H Neut # (Auto) 8.38 H Lymph # (Auto) 0.48 L Lincoln # (Auto) 0.33 Eos # (Auto) 0.05 Baso # (Auto) 0.02 Absolute Nucleated RBC 0.02 H Nucleated RBC % (auto) 0.3 RBC Morphology Unremarkable PT INR Sample Site POC pH POC pCO2 POC pO2 POC HCO3 POC Total CO2 POC Base Excess ABG pH (Temp Correct) ABG pCO2 (Temp Corrct POC ABG pO2 at Pt Temp Garett Test O2 Delivery Device POC O2 Rate Minute Ventilation Tidal Volume PEEP POC Sodium Sodium POC Potassium Potassium Chloride Carbon Dioxide Anion Gap BUN Creatinine Est Cr Clr Drug Dosing Est GFR ( Amer) Est GFR (Non-Af Amer) BUN/Creatinine Ratio Glucose POC Glucose (other) Calcium Phosphorus Magnesium Total Bilirubin Direct Bilirubin AST ALT Alkaline Phosphatase Total Protein Albumin Procalcitonin Urine Color Urine Appearance Urine pH Ur Specific Raymond Urine Protein Urine Glucose (UA) Urine Ketones Urine Blood Urine Nitrite Urine Bilirubin Urine Urobilinogen Ur Leukocyte Esterase Urine WBC (Auto) Urine RBC (Auto) U Hyaline Cast (Auto) U Epithel Cells (Auto) Urine Bacteria (Auto) Granular Casts Urine Yeast Urine Sperm AAKASH Screen Pending Anti-Proteinase 3 Pending Anti-Myeloperoxidase Pending ANCA Pending Glomerular Base Memb Ab Pending Complement C3 Pending Complement C4 Pending Tot Complement (CH50) Pending Adenovirus (PCR) B. pertussis DNA (PCR) B.parapertussis DNA PCR C. pneumoniae DNA (PCR) Coronavirus OC43 (PCR) Coronavirus HKU1 (PCR) Coronavirus 229E (PCR) Nasopharyn COVID-19 PCR Sputum COVID-19 PCR Coronavirus NL63 (PCR) Hep Bs Antigen Hep Bs Antibody Hep Bs Antibody, Quant Hep B Core IgM Ab Hepatitis Be Antibody Pending Hepatitis C Antibody Neg Human Metapneumovir PCR Influenza Type A (PCR) Influenza Type B (PCR) Urine Legionella Ag M. pneumoniae (PCR) Parainfluenza 1 (PCR) Parainfluenza 2 (PCR) Parainfluenza 3 (PCR) Parainfluenza 4 (PCR) RSV (PCR) Entero/Rhino (PCR) 12/09/19 12/09/19 12/09/19 04:00 04:00 04:00 WBC RBC Hgb POC Hgb Hct POC Hct MCV MCH MCHC RDW Std Deviation RDW Coeff of Josué Plt Count MPV Immature Gran % (Auto) Neut % (Auto) Lymph % (Auto) [place] % (Auto) Eos % (Auto) Baso % (Auto) Immature Gran # (Auto) Neut # (Auto) Lymph # (Auto) [place] # (Auto) Eos # (Auto) Baso # (Auto) Absolute Nucleated RBC Nucleated RBC % (auto) RBC Morphology PT 13.5 H INR 1.3 H Sample Site POC pH POC pCO2 POC pO2 POC HCO3 POC Total CO2 POC Base Excess ABG pH (Temp Correct) ABG pCO2 (Temp Corrct POC ABG pO2 at Pt Temp Garett Test O2 Delivery Device POC O2 Rate Minute Ventilation Tidal Volume PEEP POC Sodium Sodium 133 L POC Potassium Potassium 4.1 Chloride 103 Carbon Dioxide 20 L Anion Gap 10.0 BUN 69 H Creatinine 3.85 H Est Cr Clr Drug Dosing 23.0 Est GFR ( Amer) 17.7 Est GFR (Non-Af Amer) 15.3 BUN/Creatinine Ratio 18.0 Glucose 151 H POC Glucose (other) Calcium 7.2 L Phosphorus 7.2 H Magnesium 2.0 Total Bilirubin 0.3 Direct Bilirubin 0.1 AST 62 H ALT 29 Alkaline Phosphatase 77 Total Protein 5.6 L Albumin 0.9 L Procalcitonin 12.11 H Urine Color Urine Appearance Urine pH Ur Specific Raymond Urine Protein Urine Glucose (UA) Urine Ketones Urine Blood Urine Nitrite Urine Bilirubin Urine Urobilinogen Ur Leukocyte Esterase Urine WBC (Auto) Urine RBC (Auto) U Hyaline Cast (Auto) U Epithel Cells (Auto) Urine Bacteria (Auto) Granular Casts Urine Yeast Urine Sperm AAKASH Screen Anti-Proteinase 3 Anti-Myeloperoxidase ANCA Glomerular Base Memb Ab Complement C3 Complement C4 Tot Complement (CH50) Adenovirus (PCR) B. pertussis DNA (PCR) B.parapertussis DNA PCR C. pneumoniae DNA (PCR) Coronavirus OC43 (PCR) Coronavirus HKU1 (PCR) Coronavirus 229E (PCR) Nasopharyn COVID-19 PCR Sputum COVID-19 PCR Coronavirus NL63 (PCR) Hep Bs Antigen Hep Bs Antibody Hep Bs Antibody, Quant Hep B Core IgM Ab Hepatitis Be Antibody Hepatitis C Antibody Human Metapneumovir PCR Influenza Type A (PCR) Influenza Type B (PCR) Urine Legionella Ag M. pneumoniae (PCR) Parainfluenza 1 (PCR) Parainfluenza 2 (PCR) Parainfluenza 3 (PCR) Parainfluenza 4 (PCR) RSV (PCR) Entero/Rhino (PCR) 12/09/19 12/09/19 12/09/19 04:04 05:34 08:23 WBC RBC Hgb POC Hgb 10.2 L Hct POC Hct 30 L MCV MCH MCHC RDW Std Deviation RDW Coeff of Josué Plt Count MPV Immature Gran % (Auto) Neut % (Auto) Lymph % (Auto) [place] % (Auto) Eos % (Auto) Baso % (Auto) Immature Gran # (Auto) Neut # (Auto) Lymph # (Auto) [place] # (Auto) Eos # (Auto) Baso # (Auto) Absolute Nucleated RBC Nucleated RBC % (auto) RBC Morphology PT INR Sample Site Art Line POC pH 7.22 L POC pCO2 60 H POC pO2 88 POC HCO3 25 H POC Total CO2 27 POC Base Excess -3.0 ABG pH (Temp Correct) 7.226 L ABG pCO2 (Temp Corrct 60 H POC ABG pO2 at Pt Temp 87 Garett Test NA O2 Delivery Device Ventilator POC O2 Rate 20 Minute Ventilation 8.7 Tidal Volume 450 PEEP 18 POC Sodium 129 L Sodium POC Potassium 4.7 Potassium Chloride Carbon Dioxide Anion Gap BUN Creatinine Est Cr Clr Drug Dosing Est GFR ( Amer) Est GFR (Non-Af Amer) BUN/Creatinine Ratio Glucose POC Glucose (other) 154 H 149 H Calcium Phosphorus Magnesium Total Bilirubin Direct Bilirubin AST ALT Alkaline Phosphatase Total Protein Albumin Procalcitonin Urine Color Urine Appearance Urine pH Ur Specific Raymond Urine Protein Urine Glucose (UA) Urine Ketones Urine Blood Urine Nitrite Urine Bilirubin Urine Urobilinogen Ur Leukocyte Esterase Urine WBC (Auto) Urine RBC (Auto) U Hyaline Cast (Auto) U Epithel Cells (Auto) Urine Bacteria (Auto) Granular Casts Urine Yeast Urine Sperm AAKASH Screen Anti-Proteinase 3 Anti-Myeloperoxidase ANCA Glomerular Base Memb Ab Complement C3 Complement C4 Tot Complement (CH50) Adenovirus (PCR) B. pertussis DNA (PCR) B.parapertussis DNA PCR C. pneumoniae DNA (PCR) Coronavirus OC43 (PCR) Coronavirus HKU1 (PCR) Coronavirus 229E (PCR) Nasopharyn COVID-19 PCR Sputum COVID-19 PCR Coronavirus NL63 (PCR) Hep Bs Antigen Hep Bs Antibody Hep Bs Antibody, Quant Hep B Core IgM Ab Hepatitis Be Antibody Hepatitis C Antibody Human Metapneumovir PCR Influenza Type A (PCR) Influenza Type B (PCR) Urine Legionella Ag M. pneumoniae (PCR) Parainfluenza 1 (PCR) Parainfluenza 2 (PCR) Parainfluenza 3 (PCR) Parainfluenza 4 (PCR) RSV (PCR) Entero/Rhino (PCR) 12/09/19 09:07 WBC RBC Hgb POC Hgb 10.5 L Hct POC Hct 31 L MCV MCH MCHC RDW Std Deviation RDW Coeff of Josué Plt Count MPV Immature Gran % (Auto) Neut % (Auto) Lymph % (Auto) [place] % (Auto) Eos % (Auto) Baso % (Auto) Immature Gran # (Auto) Neut # (Auto) Lymph # (Auto) [place] # (Auto) Eos # (Auto) Baso # (Auto) Absolute Nucleated RBC Nucleated RBC % (auto) RBC Morphology PT INR Sample Site Art Line POC pH 7.29 L POC pCO2 49 H POC pO2 69 L POC HCO3 23 POC Total CO2 25 POC Base Excess -3.0 ABG pH (Temp Correct) 7.283 L ABG pCO2 (Temp Corrct 50 H POC ABG pO2 at Pt Temp 70 Garett Test NA O2 Delivery Device Ventilator POC O2 Rate 24 Minute Ventilation 60 Tidal Volume 450 PEEP 15 POC Sodium 128 L Sodium POC Potassium 4.5 Potassium Chloride Carbon Dioxide Anion Gap BUN Creatinine Est Cr Clr Drug Dosing Est GFR ( Amer) Est GFR (Non-Af Amer) BUN/Creatinine Ratio Glucose POC Glucose (other) Calcium Phosphorus Magnesium Total Bilirubin Direct Bilirubin AST ALT Alkaline Phosphatase Total Protein Albumin Procalcitonin Urine Color Urine Appearance Urine pH Ur Specific Raymond Urine Protein Urine Glucose (UA) Urine Ketones Urine Blood Urine Nitrite Urine Bilirubin Urine Urobilinogen Ur Leukocyte Esterase Urine WBC (Auto) Urine RBC (Auto) U Hyaline Cast (Auto) U Epithel Cells (Auto) Urine Bacteria (Auto) Granular Casts Urine Yeast Urine Sperm AAKASH Screen Anti-Proteinase 3 Anti-Myeloperoxidase ANCA Glomerular Base Memb Ab Complement C3 Complement C4 Tot Complement (CH50) Adenovirus (PCR) B. pertussis DNA (PCR) B.parapertussis DNA PCR C. pneumoniae DNA (PCR) Coronavirus OC43 (PCR) Coronavirus HKU1 (PCR) Coronavirus 229E (PCR) Nasopharyn COVID-19 PCR Sputum COVID-19 PCR Coronavirus NL63 (PCR) Hep Bs Antigen Hep Bs Antibody Hep Bs Antibody, Quant Hep B Core IgM Ab Hepatitis Be Antibody Hepatitis C Antibody Human Metapneumovir PCR Influenza Type A (PCR) Influenza Type B (PCR) Urine Legionella Ag M. pneumoniae (PCR) Parainfluenza 1 (PCR) Parainfluenza 2 (PCR) Parainfluenza 3 (PCR) Parainfluenza 4 (PCR) RSV (PCR) Entero/Rhino (PCR) PG Care Time/CCT Total # of Minutes Spent Total Time Spent with Patient: Total time spent is greater than 50% in coordination of care (as documented) at patient's floor/unit and/or counseling patient: Coding Level of Care Code 51711 Subseq Hosp Care Lvl 3 Diagnoses JACQUELINE (acute kidney injury) N17.9
--- NOTE | 2019-12-09 11:08 | Critical Care Progress Note ---
Date of Service December 09, 2019 Assessment & Plan (1) ARDS (adult respiratory distress syndrome): Reason Critically Ill: 64-year-old male with acute hypoxic respiratory failure presumptively secondary to 2019 24-hour events: Patient remained on vasopressor support overnight. Patient was started on hemodialysis on 12/08/2019. Still on high PEEP. -- ARDS Continue with lung protective ventilation High PEEP, low tidal volume to keep Plateau < 30 with permissive hypercapnea if need be. Monitor ABGs Etiology quite unclear right now. Patient had bio fire x2 which has been negative along with influenza negative x2. Patient had Covid-19's sent to [facility] which came out to be negative. Patient came in with hypoxic respiratory failure ARDS and shock now leading towards renal failure needing hemodialysis. The timeline goes with Covid-19 infection. Patient Covid-19 was also sent to [facility]. Will await the results which supposed to come out today. Continue with droplet precaution for the time being. --JACQUELINE With hypophosphatemia now needing hemodialysis Hemodialysis started on 12/08/2019 Nephrology on board Follow recommendations -- HAGMA When corrected for albumin Delta-delta: Between 1 and 2 Likely sec to elevated BUN Monitor --Diabetes type 2 Continue with insulin sliding scale. Glycemic control as per pharmacy Patient was on glargine as well at home. --Severe protein calorie malnutrition Albumin less than 0.9 Start trophic feeds --Prophylaxis Continue with Pepcid and heparin subcu -- Lines: Left subclavian Central line, right femoral Shiley catheter Radial arterial line Endotracheal tube Plan: Go down PEEP to 15. Start trophic feeds. Titrate down sedation to Rass -1 Will start the patient on doxycycline and Rocephin given the procalcitonin is going up from 8 to today 12.5. Given that the patient has increasing creatinine the significance of procalcitonin is not much. Would continue with antibiotics for 48 hours and if there is no clinical impovement will discontinue it. Chest x-ray does show some infiltrates retrocardiac on the left side. They have been persistent since the time of admission. Continue with Kapoor for the time being. We will see how the output is in the next 24 hours if the output is still low we will discontinue the Kapoor. Await the report of Covid-19 from [facility]. For the time being continue with droplet and contact precautions. 47 minutes critical care time evaluating managing and stabilizing patient with life-threatening illness. Admission and Anticipated Discharge Date Admission Date: December 05, 2019 Subjective Patient seen and examined at bedside. Sedated. On Versed 5, fentanyl 100, Levophed 0.07 Breathing with vent with occasional spontaneous breaths. Still on PEEP of 18. We will go down to PEEP of 15 and repeat ABG. FiO2 60% Review of Systems Review of Systems: Unobtainable due to endotracheal tube Physical Exam Physical Exam: Constitutional: No acute distress, sedated HEENT: PERRLA Respiratory system: Decreased air entry bilaterally, mild crackles bilateral lower lobes, no wheeze, no rhonchi CVS: S1-S2 positive, no murmurs or gallops Abdomen: Soft, nontender, nondistended, positive bowel sounds x4 Extremities: +2 pulses bilaterally radialis/ dorsalis pedis, no cyanosis, positive edema bilateral lower extremity Neuro: Spontaneous occasional breaths over the vent, positive gag, positive corneal Psych: Unable to assess G/U: Positive Kapoor Skin: no rashes, warm and dry Lymphatic: no cervical or axillary lymphadenopathy Results & Data Results & Data ([facility]) Vital Signs (Past 12 Hours) Vital Signs Temp Pulse Pulse Resp BP Pulse Ox 12/09/19 10:40 60 136/50 L 12/09/19 10:20 63 100/43 L 12/09/19 10:12 61 24 90 12/09/19 10:00 60 103/43 L 12/09/19 09:40 37.5 C 60 12/09/19 07:01 59 L 26 H 96 12/09/19 06:00 67 92 12/09/19 05:35 24 12/09/19 05:10 59 L 103/52 L 95 12/09/19 05:00 60 94 12/09/19 04:10 59 L 107/60 94 12/09/19 04:00 59 L 95 12/09/19 03:30 62 20 95 12/09/19 03:10 60 101/53 L 95 12/09/19 03:00 60 101/53 L 95 12/09/19 02:30 61 94 12/09/19 02:10 60 107/51 L 95 12/09/19 02:00 60 96/57 L 95 12/09/19 01:10 61 113/55 L 95 12/09/19 01:00 61 94 12/09/19 00:10 62 108/54 L 95 12/09/19 00:00 63 94 12/08/19 23:43 64 21 94 12/08/19 23:30 66 94 12/09/19 04:00 12/09/19 04:00 12/05/19 12/06/19 12/07/19 10:08 04:07 04:17 ABG pH 7.49 H 7.41 7.31 L ABG pCO2 29 L 39 47 H ABG pO2 67 L 101 H 55 L ABG HCO3 22 24 24 ABG O2 Saturation 94.1 97.8 H 83.8 L ABG Base Excess -0.6 -0.2 -2.8 12/08/19 04:12 ABG pH 7.27 L ABG pCO2 49 H ABG pO2 70 L ABG HCO3 22 ABG O2 Saturation 91.9 ABG Base Excess -5.2 Coding Level of Care Code Critical Care 1st 30-74 mins Diagnoses ARDS (adult respiratory distress syndrome) J80 Time Spent (min) 47
[2019-12-09] MEDS: PEPTAMEN INTENSE VHP 1.0 CAL 1,000 ML BAG OG SCH (12:00)
[2019-12-09] MEDS: fentaNYL DRIP 1,250 MCG/250 ML BAG IV SCH (12:20)
--- NOTE | 2019-12-09 13:09 | Hospitalist Progress Note ---
Date of Service December 09, 2019 Assessment & Plan (1) Acute respiratory failure with hypoxia: Admitted to ICU. B/l pneumonia on chest x-ray. Clinical picture highly concerning for COVID-19 (normal wbc count, lymphopenia, elevated AST, elevated d-dimer, cxr findings, etc). Profoundly hypoxic upon presentation; improved with NIPPV. intubated in ED, early intubation-continues on vent, not ready yet for extubation Defer vent management to [facility] COVID negative as of 12/07 from [facility], but [facility] COVID test still pending, is expected to result today was in prone position / for 16 hours, now supine again very guarded prognosis with worsening renal function and high temperatures alec nuing (2) Suspected 2019 novel coronavirus infection: see above in "acute hypoxic resp failure" biofire negative x 2 flu negative COVID sent - negative on 12/07 from [facility] but [facility] COVID test pending -highly suspect COVID-19--> continue droplet and contact precautions and await result (3) Sepsis: Secondary to pneumonia high concern of COVID-19 as above -continue supportive care (4) Bilateral pneumonia: see above blood cx's sent broad spectrum antibiotics continue with Rocephin and doxy (5) Acute renal failure (ARF): 2nd to dehydration/sepsis Normosol hydration serial labs HOLD MIKAEL HOLD HCTZ avoid NSAIDs [employer] peaked 4, less urine output, metabolic acidosis Dr. Ferguson of Nephrology consulted, started HD on 12/07--> continue HD as per Nephro on 12/08 with UF for 3L goal (6) Chronic obstructive pulmonary disease: by history, but not on inhalers at home. (7) Current smoker: 50+ years of smoking per patient (8) Gastroesophageal reflux disease: Pepcid protocol per ICU (9) Gout: no recent issues not on prophylaxis (10) Obstructive sleep apnea: noted (11) Hyperlipidemia: hold STATIN (12) Hypertension: HOLD anti-hypertensives (HCTZ, MIKAEL, norvasc, etc) some literature suggesting some protection with MIKAEL use but need to hold in light of ARF (13) Diabetes mellitus type II, uncontrolled: hyperglycemic ICU protocol defer to pharmacy (14) Hypokalemia: resolved (15) Hyponatremia: likely due to dehydration/volume depletion and chronic HCTZ use improved, on HD (16) Metabolic encephalopathy: multifactorial - sepsis, pneumonia, possible COVID-19, hyponatremia, hypoxia, etc supportive care (17) DVT prophylaxis: SQ Heparin Admission and Anticipated Discharge Date Admission Date: December 05, 2019 Subjective Discussed case with [facility] Nurse and RN. Remains intubated, sedated. Review of Systems Review of Systems: Unobtainable due to endotracheal tube Physical Exam Physical Exam: I observed the patient through the window, but deferred PE to [facility] Nurse due to COVID 19 and limiting provider exposure Results & Data Results & Data ([facility]) Vital Signs (Past 12 Hours) Vital Signs Temp Pulse Pulse Resp BP Pulse Ox 12/09/19 13:00 94 H 119/49 L 12/09/19 12:40 91 H 118/48 L 12/09/19 12:20 88 116/47 L 12/09/19 12:00 85 127/49 L 12/09/19 11:40 83 128/49 L 12/09/19 11:20 78 136/49 L 12/09/19 11:10 75 114/62 94 12/09/19 11:00 71 142/49 H 12/09/19 10:40 60 136/50 L 12/09/19 10:20 63 100/43 L 12/09/19 10:12 61 24 90 12/09/19 10:10 61 96/51 L 91 12/09/19 10:00 60 103/43 L 12/09/19 09:40 37.5 C 60 12/09/19 09:10 60 125/62 94 12/09/19 08:10 57 L 107/56 L 96 12/09/19 08:00 72 12/09/19 07:10 59 L 119/62 97 12/09/19 07:01 59 L 26 H 96 12/09/19 06:00 67 92 12/09/19 05:35 24 12/09/19 05:10 59 L 103/52 L 95 12/09/19 05:00 60 94 12/09/19 04:10 59 L 107/60 94 12/09/19 04:00 59 L 95 12/09/19 03:30 62 20 95 12/09/19 03:10 60 101/53 L 95 12/09/19 03:00 60 101/53 L 95 12/09/19 02:30 61 94 12/09/19 02:10 60 107/51 L 95 12/09/19 02:00 60 96/57 L 95 12/09/19 01:10 61 113/55 L 95 Laboratory Results labs reviewed Diagnostic Findings CXR reviewed PG Care Time/CCT Total # of Minutes Spent Total Time Spent with Patient: Total time spent is greater than 50% in coordination of care (as documented) at patient's floor/unit and/or counseling patient: Coding Level of Care Code None Diagnoses Acute respiratory failure with hypoxia J96.01 Suspected 2019 novel coronavirus infection R68.89 Sepsis A41.9 Bilateral pneumonia J18.9 Lung location: lower lobe of lung Pneumonia type: due to unspecified organism Acute renal failure (ARF) N17.9 Acute renal failure type: unspecified Chronic obstructive pulmonary disease J44.9 Current smoker F17.200 Gastroesophageal reflux disease K21.9 Gout M10.9 Obstructive sleep apnea G47.33 Hyperlipidemia E78.5 Hypertension I10 Diabetes mellitus type II, uncontrolled E11.65 Hypokalemia E87.6 Hyponatremia E87.1 Metabolic encephalopathy G93.41 DVT prophylaxis Z29.9 (1) Bilateral pneumonia Lung location: lower lobe of lung Pneumonia type: due to unspecified organism Qualified Code(s): J18.9 - Pneumonia, unspecified organism (2) Acute renal failure (ARF) Acute renal failure type: unspecified Qualified Code(s): N17.9 - Acute kidney failure, unspecified
--- NOTE | 2019-12-09 14:13 | Pharmacy Report ---
Pharmacy Glycemic Short Note 2 - Date of Service December 09, 2019 - Glycemic Short BSG Results (Last 24 hours): 12/08/19 12/08/19 12/08/19 18:08 19:42 23:41 Glucose POC Glucose (other) 150 H 149 H 156 H 12/09/19 12/09/19 12/09/19 04:00 04:04 08:23 Glucose 151 H POC Glucose (other) 154 H 149 H 12/09/19 12:26 Glucose POC Glucose (other) 120 H OUTPATIENT ANTIDIABETIC REGIMEN: Per med rec: * Lantus 54 units SQ qPM * Glimepiride, linagliptin, and metformin * A1c = 9.4% 12/06/19 ASSESSMENT: * 64 yo male admitted to the ICU for ARDS, COVID-19 testing pending * Pt is requiring pressor support with levophed and maintained on fentanyl and versed via continuous infusion. Temporary dialysis cath placed to maintain fluid balance in the setting of oliguric JACQUELINE with ATN. * PMH significant for T2DM, tobacco use, COPD, ASA and obesity 12/08: * Patient received a total of 29 units of insulin yesterday (25 basal, 4 bolus). Still requiring much less than home needs indicate. Will monitor. * BSGs well controlled today * Patient was started on trophic tube feeds. I don't anticipate this effecting BSGs too much, until rate/diet is advanced, will defer carb coverage for now. 12/07 * Since the time of admission, patient has been given two doses of Lantus (20 units on 4/2 PM and 15 units on 4/4 PM). Fasting BSG of 184 mg/dL this am. I would have expected this to be higher based on home dose of Lantus. * will schedule Lantus q12 based on BSG scale * Add Novolog coverage q4h - will utilize stress of 3 dosing due to above stressors and critical illness PLAN FOR INPATIENT GLYCEMIC CONTROL: * Hold outpatient oral diabetes medications * Basal insulin * Lantus per scale: * BSG < 160: 10 units * BSG 160-200: 15 units * BSG > 200: 20 units * Bolus insulin * NovoLog per scale ACHS or Q6hrs while NPO * Goal Range: Low 120 mg/dL - High 150 mg/dL * Correction Factor: 15 mg/dL/unit * Nutritional / Prandial insulin--will hold off while TFs are trophic, plan on per carb ratio of 1 unit per 6 grams CHO consumed once TFs advanced PLAN FOR DISCHARGE: * pending
[2019-12-09] MEDS: ACETAMINOPHEN 1,000 MG/100 ML VIAL IV PRN (15:20)
[2019-12-09] MEDS: NOREPINEPHRINE BIT INJ 16 MG in DEXTROSE 5% 500 ML IV SCH ×2 (16:21→19:41)
[2019-12-09] MEDS: HEPARIN SOD (PORCINE) 1000 UNIT/ML 10 ML VIAL IV SCH ×2 (19:41→19:42)
[2019-12-10] MEDS: INSULIN ASPART 100 UNITS/ML 3 ML PEN SQ SCH ×7 (00:11→23:33)
[2019-12-10 00:55] LABS: COVID-19 Patient Symptomatic? YES; PAN-SARS Coronavirus RNA NEGATIVE (NEGATIVE); SARS CoV2 RNA (COVID-19) NEGATIVE (NEGATIVE); SARS Coronavirus RNA Source NASOPHARYNGEAL
[2019-12-10] MEDS: MIDAZOLAM HCL 125 MG/250 ML BAG IV SCH ×3 (03:47→18:39)
[2019-12-10] MEDS: fentaNYL DRIP 1,250 MCG/250 ML BAG IV SCH ×2 (04:01→09:26)
[2019-12-10 04:30] LABS: Basophils # (auto) 0.02 K/uL (0-0.2); Basophils % (auto) 0.2 %; Eosinophils # (auto) 0.07 K/uL (0-0.5); Eosinophils % (auto) 0.9 %; Hematocrit (blood only) 27.4 % (42-52); Immature Granulocytes # (auto) 0.26 K/uL (0.00-0.02); Immature Granulocytes % (auto) 3.2 %; Lymphocytes # (auto) 0.51 K/uL (1.2-3.4); Lymphocytes % (auto) 6.2 %; Mean Corpuscular Hemoglobin 29.3 pg (25-34); Mean Corpuscular Hgb Conc 32.8 g/dL (32-36); Mean Corpuscular Volume 89.3 fL (80-100); Mean Platelet Volume 9.1 fL (7.4-10.4); Monocytes # (auto) 0.21 K/uL (0.11-0.59); Monocytes % (auto) 2.6 %; Neutrophils # (auto) 7.14 K/uL (1.4-6.5); Neutrophils % (auto) 86.9 %; Platelet Count 386 K/uL (130-400); RDW Coefficient of Variation 14.8 % (11.5-14.5); RDW Standard Deviation 48.1 fL (36.4-46.3); Red Blood Count 3.07 M/uL (4.7-6.1); White Blood Count 8.21 K/uL (4.8-10.8)
[2019-12-10 04:55] LABS: iSTAT Art Bld Gas pCO2 Correct 51 mmHg (35-46); iSTAT Art Bld Gas pH Corrected 7.311 (7.35-7.45); iSTAT Arterial Blood Gas HCO3 26 meg/L (19-24); iSTAT Arterial Blood Gas pCO2 52 mmHg (35-46); iSTAT Arterial Blood Gas pH 7.31 (7.35-7.45); iSTAT Arterial Blood Gas pO2 79 mmHg (80-95); iSTAT Arterial Blood Gas pO2 C 77; iSTAT Carbon Dioxide 27 mmol/L (24-31); iSTAT Hematocrit 30 % (42-52); iSTAT Hemoglobin 10.2 g/dl (14.0-18.0); iSTAT Potassium 4.6 mmol/L (3.3-5.0); iSTAT Site Art Line; iSTAT Sodium 131 mmol/L (135-144)
[2019-12-10 05:43] LABS: Albumin Level 0.7 gm/dl (3.4-5.0); BUN Creatinine Ratio 14.9 (10-20); Bilirubin,Total 0.3 mg/dl (0.2-1); C Reactive Protein 37.6 mg/dl (0-0.29); Calcium 6.9 mg/dl (8.5-10.1); Creatinine Clr Calc Pharmacy 26.7 ml/min; Est GFR (African American) 21.6; Est GFR (Non-African American) 18.6; Total Protein 5.5 gm/dl (6.4-8.2)
[2019-12-10 05:46] LABS: Phosphorus 5.7 mg/dl (2.5-4.9)
[2019-12-10 06:31] LABS: Potassium 4.3 mmol/L (3.5-5.1)
[2019-12-10 06:51] LABS: Magnesium 2.6 mg/dl (1.8-2.4)
[2019-12-10 07:20] LABS: Bilirubin Direct 0.2 mg/dl (0-0.2)
--- NOTE | 2019-12-10 07:40 | XRay Report ---
XR chest 1V portable CLINICAL HISTORY: Respiratory failure COMPARISON STUDY: 12/09/2019 FINDINGS: r there is an endotracheal tube 4.5 cm above the isra. The left subclavian central venous catheter remains unchanged in position. There is a nasogastric tube which passes into the stomach. T he cardiac and mediastinal contours remain stable. Bilateral pulmonary airspace opacities demonstrate a slight peripheral distribution. These are slightly progressive.[ IMPRESSION: Slight progression in the bilateral pulmonary airspace opacities which have a peripheral predominance. ACT 112: Negative or not required by law. Electronically signed by: Rob Honeycutt M.D. 12/10/2019 7:38 AM
[2019-12-10] MEDS: ACETAMINOPHEN 1,000 MG/100 ML VIAL IV PRN ×2 (08:51→15:28)
[2019-12-10] MEDS: HEPARIN SOD 5,000 UNIT/0.5 ML VIAL SQ SCH ×3 (08:54→21:18)
[2019-12-10] MEDS: ICU PROTOCOL FOR HYPERGLYCEMIA SCH (08:59)
[2019-12-10] MEDS: ARTIFICIAL TEARS OP OINT 3.5 GM TUBE OP PRN (08:59)
[2019-12-10] MEDS: INSULIN GLARGINE SOLOSTAR 100 UNITS/ML 3 ML PEN SC SCH ×2 (09:05→21:15)
[2019-12-10] MEDS: cefTRIAXone SODIUM 2,000 MG in DEXTROSE 5% 50 ML IV SCH (09:10)
[2019-12-10] MEDS: FAMOTIDINE 20 MG in SYRINGE 3 ML IV SCH (09:10)
[2019-12-10] MEDS: DOXYCYCLINE HYCLATE 100 MG in DEXTROSE 5% 100 ML IV SCH ×2 (09:12→21:20)
[2019-12-10] MEDS ORDERED: DOCUSATE SODIUM 100 MG CAP PO PRN (10:07)
[2019-12-10] MEDS: SENNA 8.8 MG/5 ML UDP NG SCH (11:03)
--- NOTE | 2019-12-10 11:11 | Critical Care Progress Note ---
Date of Service December 10, 2019 Assessment & Plan (1) ARDS (adult respiratory distress syndrome): Reason Critically Ill: 64-year-old male with acute hypoxic respiratory failure presumptively secondary to 2019 24-hour events: 9 beats of NSVT. Patient was started on hemodialysis on 12/08/2019. Still on high PEEP. Covid-19 was negative from [facility] labs -- ARDS Continue with lung protective ventilation High PEEP, low tidal volume to keep Plateau < 30 with permissive hypercapnea if need be. Monitor ABGs Etiology quite unclear right now. Patient had bio fire x2 which has been negative along with influenza negative x2.. Patient came in with hypoxic respiratory failure ARDS and shock now leading towards renal failure needing hemodialysis. The timeline goes with Covid-19 infection. Covid-19 negative from [facility] and [facility] labs which was sent at the day of presentation Continue with droplet precaution for the time being. --NSVT Keep potassium greater than 4, magnesium greater than 2, phosphorus greater than 3 Monitor --JACQUELINE With hyperphosphatemia now needing hemodialysis Hemodialysis started on 12/08/2019 Nephrology on board Follow recommendations --Diabetes type 2 Continue with insulin sliding scale. Glycemic control as per pharmacy Patient was on glargine as well at home. --Severe protein calorie malnutrition Albumin less than 0.9 Start trophic feeds --Prophylaxis Continue with Pepcid and heparin subcu --Prognosis guarded -- Lines: Left subclavian Central line, right femoral Shiley catheter Radial arterial line Endotracheal tube Plan: In-N-Out: Patient is -1500 in the last 24 hours ABG today 7.3 this is on 80% FiO2 and PEEP of 15 Continue with trophic feeds. Titrate down sedation to Rass -1 Continue with doxycycline and Rocephin for the time being. Chest x-ray from today shows worsening opacities bilaterally. Continue with airborne precautions RADHA Kapoor today Called Pretty Harris for on the given number. Explained the critical condition of the patient and he requiring high PEEP and ventilatory support was still being on vasopressors. Explained the importance that given that high ventilatory support that he has an vasopressor support already on. Doing chest compressions on him when time comes will not be beneficial but will cause more harm. Patient wants to come and see him before she makes any decision. Message will be relayed to the administration about her wish to come and see him. Prognosis is guarded. I have personally spent 51 minutes of critical care time in the direct management of this patient. This is a life/limb threatening event. This includes time spent evaluating patient, direct bedside care, chart review, placing orders, interpretation of diagnostic studies, discussion with consultants, patient, and family members, as well as other required patient management activities. This time is exclusive of all separately billable procedures, and teaching time and separate from and in addition to any other critical care service time. Please note the above document was generated using voice recognition software. It may contain grammatical, syntax or spelling errors. Admission and Anticipated Discharge Date Admission Date: December 05, 2019 Subjective Patient seen and examined at bedside. No acute distress. Sedated. Patient had nonsustained V. tach of 9 beats overnight around 8:30 PM on 12/09/2019 Patient's FiO2 was increased to 80% per couple of hours overnight as patient started to desaturate. T-max 38.3. On Versed 3 mg, fentanyl 75, Levophed 0.05 Review of Systems Review of Systems: Unobtainable due to cognitive status and Unobtainable due to endotracheal tube Physical Exam Physical Exam: Constitutional: No acute distress, sedated HEENT: PERRLA Respiratory system: Decreased air entry bilaterally, mild crackles bilateral lower lobes, no wheeze, no rhonchi CVS: S1-S2 positive, no murmurs or gallops Abdomen: Soft, nontender, nondistended, positive bowel sounds x4 Extremities: +2 pulses bilaterally radialis/ dorsalis pedis, no cyanosis, positive edema bilateral lower extremity Neuro: Spontaneous occasional breaths over the vent, positive gag, positive corneal Psych: Unable to assess G/U: Positive Kapoor Skin: no rashes, warm and dry Lymphatic: no cervical or axillary lymphadenopathy Results & Data Results & Data ([facility]) Vital Signs (Past 12 Hours) Vital Signs Temp Pulse Resp BP Pulse Ox 12/10/19 10:59 90 92/61 L 12/10/19 10:45 90 86/59 L 12/10/19 10:30 80 93/63 L 12/10/19 10:15 81 106/60 12/10/19 10:00 85 103/61 12/10/19 09:57 81 106/60 90 12/10/19 09:45 81 108/62 12/10/19 09:30 80 110/60 12/10/19 09:10 88 110/66 89 L 12/10/19 09:00 38.3 C H 12/10/19 08:10 86 114/66 89 L 12/10/19 07:45 85 27 H 91 12/10/19 07:10 85 129/67 94 12/10/19 06:15 67 98 12/10/19 06:10 67 108/61 99 12/10/19 06:00 66 98 12/10/19 05:45 66 97 12/10/19 05:30 60 96 12/10/19 04:50 60 24 95 12/10/19 04:45 61 95 12/10/19 04:30 64 93 12/10/19 04:15 61 91 12/10/19 04:00 61 93 12/10/19 03:30 63 92 12/10/19 03:10 60 129/63 93 12/10/19 03:00 61 92 12/10/19 02:45 62 24 94 12/10/19 02:30 59 L 93 12/10/19 02:10 59 L 131/74 92 12/10/19 02:00 63 93 12/10/19 01:45 63 95 12/10/19 01:30 63 80 L 12/10/19 01:27 64 103/53 L 82 L 12/10/19 01:00 61 88 L 12/10/19 00:45 60 88 L 12/10/19 00:30 59 L 88 L 12/10/19 00:15 59 L 88 L 12/10/19 00:10 62 130/65 89 L 12/10/19 00:02 61 24 90 12/10/19 00:00 62 88 L 12/09/19 23:45 63 88 L 12/09/19 23:38 62 12/09/19 23:30 61 88 L 12/09/19 23:15 58 L 89 L 12/09/19 23:10 61 131/69 89 L Laboratory Tests 12/10/19 12/10/19 12/10/19 03:52 06:04 06:04 AST 77 H Lactate Dehydrogenase 494 H Total Creatine Kinase 2449 H C-Reactive Protein 37.60 H 12/10/19 03:52 12/10/19 06:04 Coding Level of Care Code Critical Care 1st 30-74 mins Diagnoses ARDS (adult respiratory distress syndrome) J80 Time Spent (min) 51
--- NOTE | 2019-12-10 11:29 | Nephrology Progress Note ---
Date of Service December 10, 2019 Assessment & Plan (1) JACQUELINE (acute kidney injury): Mr. Hinkle is a 64-year-old male with DM, hypertension, ASA, obesity, and COPD. Baseline creatinine in 2019 was 1.4 mg/dL. Creatinine on admission 2.7 mg/dL. The patient has oliguric JACQUELINE with ATN. Ischemic ATN can be attributed to hemodynamic instability and hypoxia. Severe hypoxic respiratory failure persists. The patient remains relatively oliguric requiring dialysis. Femoral HD catheter was placed by the scorekeeper on 12/08/19. Catheter is functioning well. Qb adequate. Heparin provided with HD. Today is the 3rd dialysis treatment. Tolerated UF 3 L yesterday. Additional 2-3 L of UF will be provided today in order to continue to maintain appropriate fluid balance. Renal ultrasound demonstrates a couple of renal cysts in both kidneys but no notable cortical atrophy. There was no evidence of obstruction. Kapoor has been removed. Urine microscopy demonstrated 2+ protein, microscopic hematuria, and pyuria. Urine culture negative. At this time, we cannot exclude acute GN. However, clinical presentation very atypical. No evidence of TMA. Clinical presentation not consistent with AIN. Serologic evaluation for GN is pending. Noted that there has not been significant evidence of systemic vasculitis. Despite testing negative for COVID 19, the presentation is consistent with this potential diagnosis. Medications are currently appropriately dosed for kidney dysfunction and IHD. No dosing adjustments required. Subjective No acute events overnight. Remains oliguric. The patient was seen during hemodialysis today. I did not directly examine the patient due to the COVID 19 pandemic. Remains sedated and intubated. Tolerating HD reasonably well. Febrile again this morning. Levophed gtt continued during hemodialysis. Review of Systems Review of Systems: Unobtainable due to endotracheal tube Physical Exam Physical Exam: Deferred due to COVID 19 pandemic. Results & Data Vital Signs (Past 12 Hours) Vital Signs Temp Pulse Resp BP Pulse Ox 12/10/19 11:13 90 99/58 L 12/10/19 10:59 90 92/61 L 12/10/19 10:55 91 H 25 H 90 12/10/19 10:45 90 86/59 L 12/10/19 10:30 80 93/63 L 12/10/19 10:15 81 106/60 12/10/19 10:00 85 103/61 12/10/19 09:57 81 106/60 90 12/10/19 09:45 81 108/62 12/10/19 09:30 80 110/60 12/10/19 09:10 88 110/66 89 L 12/10/19 09:00 38.3 C H 12/10/19 08:10 86 114/66 89 L 12/10/19 07:45 85 27 H 91 12/10/19 07:10 85 129/67 94 12/10/19 06:15 67 98 12/10/19 06:10 67 108/61 99 12/10/19 06:00 66 98 12/10/19 05:45 66 97 12/10/19 05:30 60 96 12/10/19 04:50 60 24 95 12/10/19 04:45 61 95 12/10/19 04:30 64 93 12/10/19 04:15 61 91 12/10/19 04:00 61 93 12/10/19 03:30 63 92 12/10/19 03:10 60 129/63 93 12/10/19 03:00 61 92 12/10/19 02:45 62 24 94 12/10/19 02:30 59 L 93 12/10/19 02:10 59 L 131/74 92 12/10/19 02:00 63 93 12/10/19 01:45 63 95 12/10/19 01:30 63 80 L 12/10/19 01:27 64 103/53 L 82 L 12/10/19 01:00 61 88 L 12/10/19 00:45 60 88 L 12/10/19 00:30 59 L 88 L 12/10/19 00:15 59 L 88 L 12/10/19 00:10 62 130/65 89 L 12/10/19 00:02 61 24 90 12/10/19 00:00 62 88 L 12/09/19 23:45 63 88 L 12/09/19 23:38 62 12/09/19 23:30 61 88 L Laboratory Results Laboratory Results - last 24 hr 12/05/19 12/08/19 12/08/19 09:30 11:15 14:09 WBC RBC Hgb POC Hgb Hct POC Hct MCV MCH MCHC RDW Std Deviation RDW Coeff of Josué Plt Count MPV Immature Gran % (Auto) Neut % (Auto) Lymph % (Auto) Sampson % (Auto) Eos % (Auto) Baso % (Auto) Immature Gran # (Auto) Neut # (Auto) Lymph # (Auto) Sampson # (Auto) Eos # (Auto) Baso # (Auto) Sample Site POC pH POC pCO2 POC pO2 POC HCO3 POC Total CO2 POC Base Excess ABG pH (Temp Correct) ABG pCO2 (Temp Corrct POC ABG pO2 at Pt Temp POC ABG O2 Sat Garett Test O2 Delivery Device POC O2 Rate Tidal Volume PEEP POC Sodium Sodium POC Potassium Potassium Chloride Carbon Dioxide Anion Gap BUN Creatinine Est Cr Clr Drug Dosing Est GFR ( Amer) Est GFR (Non-Af Amer) BUN/Creatinine Ratio Glucose POC Glucose (other) Calcium Phosphorus Magnesium Total Bilirubin Direct Bilirubin AST ALT Alkaline Phosphatase Lactate Dehydrogenase Total Creatine Kinase Troponin I C-Reactive Protein Total Protein Albumin Coronavirus (PCR) NOT DETECTED COVID-19 Pt Symptomatic YES COVID-19 Source NASOPHARYNGEAL Hep B Core IgM Ab NON-REACTIVE Urine Legionella Ag SEE NOTE SARS Virus RNA (PCR) NEGATIVE SARS-CoV-2 RNA (RT-PCR) NEGATIVE 12/09/19 12/09/19 12/09/19 12:26 16:54 20:32 WBC RBC Hgb POC Hgb Hct POC Hct MCV MCH MCHC RDW Std Deviation RDW Coeff of Josué Plt Count MPV Immature Gran % (Auto) Neut % (Auto) Lymph % (Auto) Sampson % (Auto) Eos % (Auto) Baso % (Auto) Immature Gran # (Auto) Neut # (Auto) Lymph # (Auto) Sampson # (Auto) Eos # (Auto) Baso # (Auto) Sample Site POC pH POC pCO2 POC pO2 POC HCO3 POC Total CO2 POC Base Excess ABG pH (Temp Correct) ABG pCO2 (Temp Corrct POC ABG pO2 at Pt Temp POC ABG O2 Sat Garett Test O2 Delivery Device POC O2 Rate Tidal Volume PEEP POC Sodium Sodium POC Potassium Potassium Chloride Carbon Dioxide Anion Gap BUN Creatinine Est Cr Clr Drug Dosing Est GFR ( Amer) Est GFR (Non-Af Amer) BUN/Creatinine Ratio Glucose POC Glucose (other) 120 H 140 H 161 H Calcium Phosphorus Magnesium Total Bilirubin Direct Bilirubin AST ALT Alkaline Phosphatase Lactate Dehydrogenase Total Creatine Kinase Troponin I C-Reactive Protein Total Protein Albumin Coronavirus (PCR) COVID-19 Pt Symptomatic COVID-19 Source Hep B Core IgM Ab Urine Legionella Ag SARS Virus RNA (PCR) SARS-CoV-2 RNA (RT-PCR) 12/10/19 12/10/19 12/10/19 00:12 03:39 03:52 WBC RBC Hgb POC Hgb Hct POC Hct MCV MCH MCHC RDW Std Deviation RDW Coeff of Josué Plt Count MPV Immature Gran % (Auto) Neut % (Auto) Lymph % (Auto) Sampson % (Auto) Eos % (Auto) Baso % (Auto) Immature Gran # (Auto) Neut # (Auto) Lymph # (Auto) Sampson # (Auto) Eos # (Auto) Baso # (Auto) Sample Site POC pH POC pCO2 POC pO2 POC HCO3 POC Total CO2 POC Base Excess ABG pH (Temp Correct) ABG pCO2 (Temp Corrct POC ABG pO2 at Pt Temp POC ABG O2 Sat Garett Test O2 Delivery Device POC O2 Rate Tidal Volume PEEP POC Sodium Sodium POC Potassium Potassium Chloride Carbon Dioxide Anion Gap BUN Creatinine Est Cr Clr Drug Dosing Est GFR ( Amer) Est GFR (Non-Af Amer) BUN/Creatinine Ratio Glucose POC Glucose (other) 210 H 213 H Calcium Phosphorus Magnesium Total Bilirubin Direct Bilirubin AST ALT Alkaline Phosphatase Lactate Dehydrogenase Total Creatine Kinase Troponin I C-Reactive Protein Total Protein Albumin Coronavirus (PCR) COVID-19 Pt Symptomatic COVID-19 Source Hep B Core IgM Ab Urine Legionella Ag SARS Virus RNA (PCR) SARS-CoV-2 RNA (RT-PCR) 12/10/19 12/10/19 12/10/19 03:52 03:52 04:41 WBC 8.21 RBC 3.07 L Hgb 9.0 L POC Hgb 10.2 L Hct 27.4 L POC Hct 30 L MCV 89.3 MCH 29.3 MCHC 32.8 RDW Std Deviation 48.1 H RDW Coeff of Josué 14.8 H Plt Count 386 MPV 9.1 Immature Gran % (Auto) 3.2 Neut % (Auto) 86.9 Lymph % (Auto) 6.2 Sampson % (Auto) 2.6 Eos % (Auto) 0.9 Baso % (Auto) 0.2 Immature Gran # (Auto) 0.26 H Neut # (Auto) 7.14 H Lymph # (Auto) 0.51 L Sampson # (Auto) 0.21 Eos # (Auto) 0.07 Baso # (Auto) 0.02 Sample Site Art Line POC pH 7.31 L POC pCO2 52 H POC pO2 79 L POC HCO3 26 H POC Total CO2 27 POC Base Excess 0.0 ABG pH (Temp Correct) 7.311 L ABG pCO2 (Temp Corrct 51 H POC ABG pO2 at Pt Temp 77 POC ABG O2 Sat 94.0 Graett Test NA O2 Delivery Device Ventilator POC O2 Rate 24 Tidal Volume 450 PEEP 15 POC Sodium 131 L Sodium 136 POC Potassium 4.6 Potassium Chloride 108 H Carbon Dioxide 20 L Anion Gap 8.0 BUN 49 H Creatinine 3.27 H D Est Cr Clr Drug Dosing 26.7 Est GFR ( Amer) 21.6 Est GFR (Non-Af Amer) 18.6 BUN/Creatinine Ratio 14.9 Glucose 179 H POC Glucose (other) Calcium 6.9 L Phosphorus 5.7 H D Magnesium Total Bilirubin 0.3 Direct Bilirubin AST ALT 27 Alkaline Phosphatase 74 Lactate Dehydrogenase Total Creatine Kinase Troponin I C-Reactive Protein 37.60 H Total Protein 5.5 L Albumin 0.7 L Coronavirus (PCR) COVID-19 Pt Symptomatic COVID-19 Source Hep B Core IgM Ab Urine Legionella Ag SARS Virus RNA (PCR) SARS-CoV-2 RNA (RT-PCR) 12/10/19 12/10/19 12/10/19 05:17 05:17 06:04 WBC RBC Hgb POC Hgb Hct POC Hct MCV MCH MCHC RDW Std Deviation RDW Coeff of Josué Plt Count MPV Immature Gran % (Auto) Neut % (Auto) Lymph % (Auto) Sampson % (Auto) Eos % (Auto) Baso % (Auto) Immature Gran # (Auto) Neut # (Auto) Lymph # (Auto) Sampson # (Auto) Eos # (Auto) Baso # (Auto) Sample Site POC pH POC pCO2 POC pO2 POC HCO3 POC Total CO2 POC Base Excess ABG pH (Temp Correct) ABG pCO2 (Temp Corrct POC ABG pO2 at Pt Temp POC ABG O2 Sat Garett Test O2 Delivery Device POC O2 Rate Tidal Volume PEEP POC Sodium Sodium POC Potassium Potassium Cancelled 4.3 Chloride Carbon Dioxide Anion Gap BUN Creatinine Est Cr Clr Drug Dosing Est GFR ( Amer) Est GFR (Non-Af Amer) BUN/Creatinine Ratio Glucose POC Glucose (other) Calcium Phosphorus Magnesium Cancelled 2.6 H Total Bilirubin Direct Bilirubin Cancelled 0.2 D AST Cancelled 77 H ALT Alkaline Phosphatase Lactate Dehydrogenase Cancelled Total Creatine Kinase Cancelled 2449 H Troponin I C-Reactive Protein Total Protein Albumin Coronavirus (PCR) COVID-19 Pt Symptomatic COVID-19 Source Hep B Core IgM Ab Urine Legionella Ag SARS Virus RNA (PCR) SARS-CoV-2 RNA (RT-PCR) 12/10/19 12/10/19 06:04 06:04 WBC RBC Hgb POC Hgb Hct POC Hct MCV MCH MCHC RDW Std Deviation RDW Coeff of Josué Plt Count MPV Immature Gran % (Auto) Neut % (Auto) Lymph % (Auto) Sampson % (Auto) Eos % (Auto) Baso % (Auto) Immature Gran # (Auto) Neut # (Auto) Lymph # (Auto) Sampson # (Auto) Eos # (Auto) Baso # (Auto) Sample Site POC pH POC pCO2 POC pO2 POC HCO3 POC Total CO2 POC Base Excess ABG pH (Temp Correct) ABG pCO2 (Temp Corrct POC ABG pO2 at Pt Temp POC ABG O2 Sat Garett Test O2 Delivery Device POC O2 Rate Tidal Volume PEEP POC Sodium Sodium POC Potassium Potassium Chloride Carbon Dioxide Anion Gap BUN Creatinine Est Cr Clr Drug Dosing Est GFR ( Amer) Est GFR (Non-Af Amer) BUN/Creatinine Ratio Glucose POC Glucose (other) Calcium Phosphorus Magnesium Total Bilirubin Direct Bilirubin AST ALT Alkaline Phosphatase Lactate Dehydrogenase 494 H Total Creatine Kinase Troponin I < 0.015 C-Reactive Protein Total Protein Albumin Coronavirus (PCR) COVID-19 Pt Symptomatic COVID-19 Source Hep B Core IgM Ab Urine Legionella Ag SARS Virus RNA (PCR) SARS-CoV-2 RNA (RT-PCR) PG Care Time/CCT Total # of Minutes Spent Total Time Spent with Patient: Total time spent is greater than 50% in coordination of care (as documented) at patient's floor/unit and/or counseling patient: Coding Level of Care Code 01384 Subseq Hosp Care Lvl 3 Diagnoses JACQUELINE (acute kidney injury) N17.9
--- NOTE | 2019-12-10 12:38 | Pharmacy Report ---
Glycemic Control Progress Note - Date of Service December 10, 2019 - Scope Glycemic Pharmacist consulted for glycemic control to write orders per [facility] inpatient glycemic control protocol. - Objective Accuchecks BSG(last 24 hours):: 12/09/19 12/09/19 12/09/19 12:26 16:54 20:32 Glucose POC Glucose (other) 120 H 140 H 161 H 12/10/19 12/10/19 12/10/19 00:12 03:39 03:52 Glucose 179 H POC Glucose (other) 210 H 213 H 12/10/19 08:38 Glucose POC Glucose (other) 170 H HbA1c:: Hemoglobin A1c 9.4 % (4.5-5.6) H 12/06/19 04:06 - Recent Pertinent Medications The patient is currently receiving: * Basal insulin: Lantus 10-20 units every 12 hours * Correctional Insulin: Novolog Correction per scale ACHS Goal Range: Low 120 mg/dL - High 150 mg/dL Correction Factor: 15 mg/dL/unit * Prandial insulin: Per carb ratio of 1 unit per -- grams CHO consumed - Outpatient Anti-Diabetic Meds Glargine 54 units qPM glimepiride 8 mg daily linagliptin 5 mg daily metformin 1 gm PO daily - Assessment & Plan ASSESSMENT: * See progress note from 12/08/2019 for more background info, in short: * Pt receiving SQ basal bolus insulin regimen for hyperglycemia secondary to baseline DM (outpatient regimen on hold) and currently intubated on (Versed, Fentanyl, and Levophed) with antibiotics (Rocephin and Doxycycline). * Patient is currently receiving an average of 36 units of insulin per day * 30 units of basal insulin * 6 units of prandial/correctional insulin * BSGs ranging 120 - 210 mg/dl over the past 24hrs * Changes needed to insulin regimen: * AM Fasting BSG = 170 mg/dl. This is in goal range for patient based on inpatient targets and co-morbidities. HOWEVER, the patient's fasting BSG has trended upwards. Will increase basal insulin slightly since he did receive an additional 9 units overnight indicating basal needs are most likely not being met. He continues on Levophed so caution with absorption. * Post-prandial BSGs are in range therefore no changes needed to CF/CR. * Total daily dose = ? units. Will change with changing tube feeds and infusions. PLAN FOR INPATIENT GLYCEMIC CONTROL: * Increasing Lantus to 12-22 units SQ BID * Lantus 12 units if BSG < 140 mg/dL * Lantus 18 units if BSG 140-180 mg/dL * Lantus 22 units if BSG > 180 mg/dL * Continuing correction factor of 15 mg/dl/unit * Continuing no carbohydrate ratio at this point until tube feeds increased * Continuing goal range of Low 120 mg/dL - High 150 mg/dL RECOMMENDATIONS FOR DISCHARGE: * TBD Thank you.
[2019-12-10] MEDS: PEPTAMEN INTENSE VHP 1.0 CAL 1,000 ML BAG OG SCH (13:03)
[2019-12-10 14:19] LABS: iSTAT Art Bld Gas pCO2 Correct 49 mmHg (35-46); iSTAT Art Bld Gas pH Corrected 7.323 (7.35-7.45); iSTAT Arterial Blood Gas HCO3 25 meg/L (19-24); iSTAT Arterial Blood Gas pCO2 46 mmHg (35-46); iSTAT Arterial Blood Gas pH 7.34 (7.35-7.45); iSTAT Arterial Blood Gas pO2 87 mmHg (80-95); iSTAT Arterial Blood Gas pO2 C 95; iSTAT Carbon Dioxide 26 mmol/L (24-31); iSTAT Hematocrit 33 % (42-52); iSTAT Hemoglobin 11.2 g/dl (14.0-18.0); iSTAT Potassium 4.8 mmol/L (3.3-5.0); iSTAT Site Art Line; iSTAT Sodium 133 mmol/L (135-144)
--- NOTE | 2019-12-10 16:41 | Hospitalist Progress Note ---
Date of Service December 10, 2019 Assessment & Plan (1) Acute respiratory failure with hypoxia: Admitted to ICU. B/l pneumonia on chest x-ray, CXR worsening today with bilat peripheral infiltrates Clinical picture highly concerning for COVID-19 (normal wbc count, lymphopenia, elevated AST,elevated LDH, elevated d-dimer, cxr findings, etc). Profoundly hypoxic upon presentation intubated in ED, early intubation-continues on vent, not ready yet for extubation-remains on FiO2 80%, PEEP 15 Defer vent management to [facility] COVID negative as of 12/07 from [facility], and [facility] COVID test now also negative from 12/04 was in prone position 12/04 for 16 hours, now supine again Continues to be with a very guarded prognosis with worsening renal function requiring hemodialysis and high temperatures continuing, worsening pulmonary status, continued need for mechanical ventilation (2) ARDS (adult respiratory distress syndrome): as above, secondary to likely COVID -recommend checking ECHO (3) Suspected 2019 novel coronavirus infection: see above in "acute hypoxic resp failure" biofire negative x 2 flu negative COVID - negative on 12/07 from [facility] and also now on [facility] COVID test -Continue to highly suspect COVID-19--> continue droplet and contact precautions -Pulm/Crit Care is considering repeat tracheal aspirate sample to send off for testing (4) Sepsis: Secondary to pneumonia high concern of COVID-19 as above -continue supportive care (5) Bilateral pneumonia: see above blood cx's NGTD Sputum cx no growth broad spectrum antibiotics continue with Rocephin and doxy (6) Acute renal failure (ARF): Secondary to dehydration/sepsis/ATN Normosol hydration given initially Now on hemodialysis, started 12/07, has SHiley catheter in rt femoral -serial labs -continue to HOLD MIKAEL and HCTZ -avoid NSAIDs -Reamer Hand peaked 4, with oliguria, metabolic acidosis Dr. Ferguson of Nephrology consulted-appreciated (7) Chronic obstructive pulmonary disease: by history, but not on inhalers at home. (8) Current smoker: 50+ years of smoking per patient (9) Gastroesophageal reflux disease: Pepcid protocol per ICU (10) Gout: no recent issues not on prophylaxis (11) Obstructive sleep apnea: noted (12) Hyperlipidemia: hold STATIN (13) Hypertension: HOLD anti-hypertensives (HCTZ, MIKAEL, norvasc, etc) for hypotension--> still requiring levophed with HD some literature suggesting some protection with MIKAEL use but need to hold in light of ARF (14) Diabetes mellitus type II, uncontrolled: hyperglycemic ICU protocol defer to pharmacy (15) Hypokalemia: resolved (16) Hyponatremia: likely due to dehydration/volume depletion and chronic HCTZ use improved, on HD (17) Metabolic encephalopathy: multifactorial - sepsis, pneumonia, possible COVID-19, hyponatremia, hypoxia, etc supportive care (18) Rhabdomyolysis: CPK elevated at 2449 Likely secondary to sepsis/infection -follow CPK (19) DVT prophylaxis: SQ Heparin Admission and Anticipated Discharge Date Admission Date: December 05, 2019 Subjective Pt remains sedated and intubated. I discussed the case with [facility]er and Nephrology Review of Systems Review of Systems: Unobtainable due to endotracheal tube Physical Exam Physical Exam: I observed the patient through the window, but deferred PE to [facility] due to COVID 19 and limiting provider exposure Results & Data Results & Data ([facility]) Vital Signs (Past 12 Hours) Vital Signs Temp Pulse Pulse Resp BP BP Pulse Ox 12/10/19 16:09 38.3 C H 88 101/65 12/10/19 16:00 70 12/10/19 15:41 70 134/63 94 12/10/19 15:11 71 123/61 92 12/10/19 14:41 79 112/57 L 89 L 12/10/19 14:11 78 110/72 94 12/10/19 13:41 86 111/59 L 91 12/10/19 13:20 86 26 H 91 12/10/19 13:11 90 97/58 L 92 12/10/19 12:33 92 H 99/58 L 12/10/19 12:27 97 H 95/68 L 95 12/10/19 12:16 105 H 91/53 L 12/10/19 12:13 104 H 86/61 L 91 12/10/19 11:58 102 H 92/54 L 88 L 12/10/19 11:45 98 H 89/55 L 12/10/19 11:43 95 H 89/55 L 89 L 12/10/19 11:28 90 98/60 L 12/10/19 11:27 91 H 98/60 L 90 12/10/19 11:13 90 99/58 L 04/07/20 11:12 90 99/58 L 89 L 12/10/19 10:59 90 92/61 L 12/10/19 10:57 89 92/61 L 90 12/10/19 10:55 91 H 25 H 90 12/10/19 10:47 89 86/59 L 91 12/10/19 10:45 90 86/59 L 12/10/19 10:42 88 85/60 L 90 12/10/19 10:30 80 93/63 L 12/10/19 10:27 89 93/63 L 90 12/10/19 10:15 81 106/60 12/10/19 10:12 84 103/61 90 12/10/19 10:00 85 103/61 12/10/19 09:57 81 106/60 90 12/10/19 09:45 81 108/62 12/10/19 09:30 80 110/60 12/10/19 09:10 88 110/66 89 L 12/10/19 09:00 38.3 C H 12/10/19 08:10 86 114/66 89 L 12/10/19 07:45 85 27 H 91 12/10/19 07:10 85 129/67 94 12/10/19 06:15 67 98 12/10/19 06:10 67 108/61 99 12/10/19 06:00 66 98 12/10/19 05:45 66 97 12/10/19 05:30 60 96 12/10/19 04:50 60 24 95 12/10/19 04:45 61 95 PG Care Time/CCT Total # of Minutes Spent Total Time Spent with Patient: Total time spent is greater than 50% in coordination of care (as documented) at patient's floor/unit and/or counseling patient: Coding Level of Care Code None Diagnoses Acute respiratory failure with hypoxia J96.01 ARDS (adult respiratory distress syndrome) J80 Suspected 2019 novel coronavirus infection R68.89 Sepsis A41.9 Bilateral pneumonia J18.9 Lung location: lower lobe of lung Pneumonia type: due to unspecified organism Acute renal failure (ARF) N17.9 Acute renal failure type: unspecified Chronic obstructive pulmonary disease J44.9 Current smoker F17.200 Gastroesophageal reflux disease K21.9 Gout M10.9 Obstructive sleep apnea G47.33 Hyperlipidemia E78.5 Hypertension I10 Diabetes mellitus type II, uncontrolled E11.65 Hypokalemia E87.6 Hyponatremia E87.1 Metabolic encephalopathy G93.41 Rhabdomyolysis M62.82 DVT prophylaxis Z29.9 (1) Bilateral pneumonia Lung location: lower lobe of lung Pneumonia type: due to unspecified organism Qualified Code(s): J18.9 - Pneumonia, unspecified organism (2) Acute renal failure (ARF) Acute renal failure type: unspecified Qualified Code(s): N17.9 - Acute kidney failure, unspecified
[2019-12-10] MEDS: NOREPINEPHRINE BIT INJ 16 MG in DEXTROSE 5% 500 ML IV SCH (17:09)
[2019-12-11 04:36] LABS: Hematocrit (blood only) 32.1 % (42-52); Hemoglobin 10.5 g/dL (14.0-18.0); Mean Corpuscular Hgb Conc 32.7 g/dL (32-36); Mean Corpuscular Volume 88.7 fL (80-100); Nucleated RBC # (auto) 0.03 K/uL (0-0); Nucleated RBC % (auto) 0.3 %; Platelet Count 428 K/uL (130-400); RDW Coefficient of Variation 14.6 % (11.5-14.5); RDW Standard Deviation 47.9 fL (36.4-46.3); Red Blood Count 3.62 M/uL (4.7-6.1); White Blood Count 11.46 K/uL (4.8-10.8)
[2019-12-11] MEDS: fentaNYL DRIP 1,250 MCG/250 ML BAG IV SCH (04:54)
[2019-12-11] MEDS: HEPARIN SOD 5,000 UNIT/0.5 ML VIAL SQ SCH ×3 (04:54→20:55)
[2019-12-11] MEDS: INSULIN ASPART 100 UNITS/ML 3 ML PEN SQ SCH ×7 (04:58→23:54)
[2019-12-11 05:07] LABS: Basophils # (auto) 0.03 K/uL (0-0.2); Basophils % (auto) 0.3 %; Eosinophils # (auto) 0.01 K/uL (0-0.5); Eosinophils % (auto) 0.1 %; Immature Granulocytes # (auto) 0.61 K/uL (0.00-0.02); Immature Granulocytes % (auto) 5.3 %; Lymphocytes % (auto) 6.1 %; Monocytes # (auto) 0.52 K/uL (0.11-0.59); Monocytes % (auto) 4.5 %; Neutrophils # (auto) 9.59 K/uL (1.4-6.5); Neutrophils % (auto) 83.7 %
[2019-12-11 05:12] LABS: BUN Creatinine Ratio 15.1 (10-20); Bilirubin Direct 0.1 mg/dl (0-0.2); Bilirubin,Total 0.2 mg/dl (0.2-1); Calcium 9.2 mg/dl (8.5-10.1); Creatinine Clr Calc Pharmacy 17.7 ml/min; Est GFR (African American) 13.3; Est GFR (Non-African American) 11.5; Ferritin 1713.5 ng/ml (8-388); Magnesium 2.9 mg/dl (1.8-2.4); Potassium 4.7 mmol/L (3.5-5.1); Total Protein 7.3 gm/dl (6.4-8.2)
[2019-12-11 06:19] LABS: iSTAT Art Bld Gas pCO2 Correct 44 mmHg (35-46); iSTAT Art Bld Gas pH Corrected 7.322 (7.35-7.45); iSTAT Arterial Blood Gas HCO3 23 meg/L (19-24); iSTAT Arterial Blood Gas pCO2 43 mmHg (35-46); iSTAT Arterial Blood Gas pH 7.33 (7.35-7.45); iSTAT Arterial Blood Gas pO2 55 mmHg (80-95); iSTAT Arterial Blood Gas pO2 C 58; iSTAT Carbon Dioxide 24 mmol/L (24-31); iSTAT Hematocrit 30 % (42-52); iSTAT Hemoglobin 10.2 g/dl (14.0-18.0); iSTAT Potassium 4.3 mmol/L (3.3-5.0); iSTAT Site Art Line; iSTAT Sodium 133 mmol/L (135-144)
--- NOTE | 2019-12-11 07:12 | XRay Report ---
XR chest 1V portable HISTORY: 64 years-old Male f/u acute respiratory failure COMPARISON: Chest radiograph 12/10/2019 TECHNIQUE: Portable AP view of the chest FINDINGS: Endotracheal tube overlies the midline, 3.8 cm superior to the isra. Enteric tube courses below the diaphragm, distal tip outside the [id number]. Left subclavian central venous catheter has been sl ightly retracted, distal tip in the expected location of the left brachiocephalic vein to the left of midline. Calcified plaque of the aortic arch. Cardiomegaly. No pneumothorax. Probable trace pleural effusions. Bilateral peripheral predominant mixed interstitial and alveolar opacities appear stable t o slightly improved from comparison. The bones appear grossly intact. IMPRESSION: 1. Satisfactory positioning of endotracheal and enteric tubes. 2. Slight retraction of the left subclavian central venous catheter, distal tip in the expected locat ion of the left brachiocephalic vein. 3. Stable to slightly improved bilateral mixed interstitial and alveolar opacities. ACT 112: Negative or not required by law. The above report was generated using voice recognition software. It may contain grammatical, syntax o r spelling errors. Electronically signed by: Darin Daniel M.D. 12/11/2019 7:11 AM
[2019-12-11] MEDS: ARTIFICIAL TEARS OP OINT 3.5 GM TUBE OP PRN (08:02)
[2019-12-11] MEDS: cefTRIAXone SODIUM 2,000 MG in DEXTROSE 5% 50 ML IV SCH (08:06)
[2019-12-11] MEDS: DOXYCYCLINE HYCLATE 100 MG in DEXTROSE 5% 100 ML IV SCH ×2 (08:07→20:54)
[2019-12-11] MEDS: SENNA 8.8 MG/5 ML UDP NG SCH (08:08)
[2019-12-11] MEDS: INSULIN GLARGINE SOLOSTAR 100 UNITS/ML 3 ML PEN SC SCH ×2 (08:16→20:51)
[2019-12-11] MEDS: FAMOTIDINE 20 MG in SYRINGE 3 ML IV SCH (08:18)
[2019-12-11] MEDS ORDERED: SODIUM CHLORIDE 0.9% 1000ML 1,000 ML IV PRN (09:02)
[2019-12-11] MEDS ORDERED: HEPARIN SOD (PORCINE) 1000 UNIT/ML 10 ML VIAL IV ONE (09:02)
[2019-12-11 09:19] LABS: iSTAT Art Bld Gas pCO2 Correct 46 mmHg (35-46); iSTAT Art Bld Gas pH Corrected 7.315 (7.35-7.45); iSTAT Arterial Blood Gas HCO3 23 meg/L (19-24); iSTAT Arterial Blood Gas pCO2 45 mmHg (35-46); iSTAT Arterial Blood Gas pH 7.32 (7.35-7.45); iSTAT Arterial Blood Gas pO2 69 mmHg (80-95); iSTAT Arterial Blood Gas pO2 C 72; iSTAT Carbon Dioxide 25 mmol/L (24-31); iSTAT Hematocrit 29 % (42-52); iSTAT Hemoglobin 9.9 g/dl (14.0-18.0); iSTAT Potassium 4.1 mmol/L (3.3-5.0); iSTAT Site Art Line; iSTAT Sodium 132 mmol/L (135-144)
--- NOTE | 2019-12-11 09:49 | Nephrology Progress Note ---
Date of Service December 11, 2019 Assessment & Plan (1) JACQUELINE (acute kidney injury): Mr. Hinkle is a 64-year-old male with DM, hypertension, ASA, obesity, and COPD. Baseline creatinine in 2019 was 1.4 mg/dL. Creatinine on admission 2.7 mg/dL. The patient has oliguric JACQUELINE with ATN. Ischemic ATN can be attributed to hemodynamic instability and hypoxia. Severe hypoxic respiratory failure persists. The patient remains oliguric requiring dialysis. Daily hemodialysis has been provided since 12/08/19. Femoral HD catheter was placed by the front office spec on 12/08/19. Catheter is functioning well. Qb adequate. Dialysis was ordered today for additional clearance and UF. Uf goal 1-2 L as tolerated. Renal UD did not demonstrate obstruction. Urine microscopy demonstrated 2+ protein, microscopic hematuria, and pyuria. Urine culture negative. Serologic testing for GN has been sent, results are pending. Medications are currently appropriately dosed for kidney dysfunction and IHD. No dosing adjustments required. Subjective No complications with HD yesterday. Remains on vent support with high PEEP. No significant interval change. Fevers persist. WBC slightly elevated. Review of Systems Review of Systems: Unobtainable due to endotracheal tube Physical Exam Physical Exam: Deferred due to COVID 19 pandemic. Results & Data Vital Signs (Past 12 Hours) Vital Signs Pulse Resp BP Pulse Ox 12/11/19 07:10 66 28 H 90 12/11/19 06:05 70 26 H 90 12/11/19 06:00 68 92 12/11/19 05:42 65 157/62 H 93 12/11/19 05:12 65 147/99 H 93 12/11/19 05:00 64 93 12/11/19 04:42 63 155/88 H 93 12/11/19 04:12 64 146/70 H 93 12/11/19 04:00 64 94 12/11/19 03:42 64 154/59 H 94 12/11/19 03:30 65 94 12/11/19 03:12 65 130/89 93 12/11/19 03:03 65 25 H 93 12/11/19 03:00 64 93 12/11/19 02:42 65 151/57 H 93 12/11/19 02:30 67 93 12/11/19 02:12 66 144/77 H 92 12/11/19 02:00 63 95 04/08/20 01:42 63 137/62 95 12/11/19 01:30 63 95 12/11/19 01:12 63 133/64 95 12/11/19 01:00 64 94 12/11/19 00:42 64 143/66 H 94 12/11/19 00:30 64 94 12/11/19 00:12 63 136/63 94 12/11/19 00:07 64 130/64 94 12/11/19 00:00 63 94 12/10/19 23:43 64 138/62 93 12/10/19 23:42 64 131/74 94 12/10/19 23:30 64 95 12/10/19 23:12 64 132/65 94 12/10/19 23:00 64 94 12/10/19 22:30 65 24 94 12/10/19 22:00 65 94 Laboratory Results Laboratory Results - last 24 hr 12/08/19 12/08/19 12/10/19 11:15 14:09 08:38 WBC RBC Hgb POC Hgb Hct POC Hct MCV MCH MCHC RDW Std Deviation RDW Coeff of Josué Plt Count MPV Immature Gran % (Auto) Neut % (Auto) Lymph % (Auto) Kemper % (Auto) Eos % (Auto) Baso % (Auto) Immature Gran # (Auto) Neut # (Auto) Lymph # (Auto) Kemper # (Auto) Eos # (Auto) Baso # (Auto) Absolute Nucleated RBC Nucleated RBC % (auto) Sample Site POC pH POC pCO2 POC pO2 POC HCO3 POC Total CO2 POC Base Excess ABG pH (Temp Correct) ABG pCO2 (Temp Corrct POC ABG pO2 at Pt Temp POC ABG O2 Sat Garett Test O2 Delivery Device POC O2 Rate Minute Ventilation Tidal Volume PEEP POC Sodium Sodium POC Potassium Potassium Chloride Carbon Dioxide Anion Gap BUN Creatinine Est Cr Clr Drug Dosing Est GFR ( Amer) Est GFR (Non-Af Amer) BUN/Creatinine Ratio Glucose POC Glucose POC Glucose (other) 170 H Calcium Phosphorus Magnesium Ferritin Total Bilirubin Direct Bilirubin AST ALT Alkaline Phosphatase Total Creatine Kinase Total Protein Albumin Hep B Core IgM Ab NON-REACTIVE Urine Legionella Ag SEE NOTE 12/10/19 12/10/19 12/10/19 13:08 14:04 17:25 WBC RBC Hgb POC Hgb 11.2 L Hct POC Hct 33 L MCV MCH MCHC RDW Std Deviation RDW Coeff of Josué Plt Count MPV Immature Gran % (Auto) Neut % (Auto) Lymph % (Auto) Kemper % (Auto) Eos % (Auto) Baso % (Auto) Immature Gran # (Auto) Neut # (Auto) Lymph # (Auto) Kemper # (Auto) Eos # (Auto) Baso # (Auto) Absolute Nucleated RBC Nucleated RBC % (auto) Sample Site Art Line POC pH 7.34 L POC pCO2 46 POC pO2 87 POC HCO3 25 H POC Total CO2 26 POC Base Excess -1.0 ABG pH (Temp Correct) 7.323 L ABG pCO2 (Temp Corrct 49 H POC ABG pO2 at Pt Temp 95 POC ABG O2 Sat 96.0 H Garett Test NA O2 Delivery Device Ventilator POC O2 Rate 24 Minute Ventilation 11.9 Tidal Volume 480 PEEP 15 POC Sodium 133 L Sodium POC Potassium 4.8 Potassium Chloride Carbon Dioxide Anion Gap BUN Creatinine Est Cr Clr Drug Dosing Est GFR ( Amer) Est GFR (Non-Af Amer) BUN/Creatinine Ratio Glucose POC Glucose POC Glucose (other) 151 H 210 H Calcium Phosphorus Magnesium Ferritin Total Bilirubin Direct Bilirubin AST ALT Alkaline Phosphatase Total Creatine Kinase Total Protein Albumin Hep B Core IgM Ab Urine Legionella Ag 12/10/19 12/11/19 12/11/19 21:10 04:17 04:17 WBC 11.46 H RBC 3.62 L Hgb 10.5 L POC Hgb Hct 32.1 L POC Hct MCV 88.7 MCH 29.0 MCHC 32.7 RDW Std Deviation 47.9 H RDW Coeff of Josué 14.6 H Plt Count 428 H MPV 9.0 Immature Gran % (Auto) 5.3 Neut % (Auto) 83.7 Lymph % (Auto) 6.1 Kemper % (Auto) 4.5 Eos % (Auto) 0.1 Baso % (Auto) 0.3 Immature Gran # (Auto) 0.61 H Neut # (Auto) 9.59 H Lymph # (Auto) 0.70 L Kemper # (Auto) 0.52 Eos # (Auto) 0.01 Baso # (Auto) 0.03 Absolute Nucleated RBC 0.03 H Nucleated RBC % (auto) 0.3 Sample Site POC pH POC pCO2 POC pO2 POC HCO3 POC Total CO2 POC Base Excess ABG pH (Temp Correct) ABG pCO2 (Temp Corrct POC ABG pO2 at Pt Temp POC ABG O2 Sat Garett Test O2 Delivery Device POC O2 Rate Minute Ventilation Tidal Volume PEEP POC Sodium Sodium 133 L POC Potassium Potassium 4.7 Chloride 100 Carbon Dioxide 23 Anion Gap 10.0 BUN 74 H D Creatinine 4.88 H* D Est Cr Clr Drug Dosing 17.7 Est GFR ( Amer) 13.3 Est GFR (Non-Af Amer) 11.5 BUN/Creatinine Ratio 15.1 Glucose 234 H POC Glucose 221 H POC Glucose (other) Calcium 9.2 D Phosphorus 7.0 H D Magnesium 2.9 H Ferritin 1713.5 H Total Bilirubin 0.2 Direct Bilirubin 0.1 AST 60 H ALT 33 Alkaline Phosphatase 99 Total Creatine Kinase 1715 H Total Protein 7.3 D Albumin 1.0 L Hep B Core IgM Ab Urine Legionella Ag 12/11/19 12/11/19 12/11/19 06:04 07:44 09:04 WBC RBC Hgb POC Hgb 10.2 L 9.9 L Hct POC Hct 30 L 29 L MCV MCH MCHC RDW Std Deviation RDW Coeff of Josué Plt Count MPV Immature Gran % (Auto) Neut % (Auto) Lymph % (Auto) Kemper % (Auto) Eos % (Auto) Baso % (Auto) Immature Gran # (Auto) Neut # (Auto) Lymph # (Auto) Kemper # (Auto) Eos # (Auto) Baso # (Auto) Absolute Nucleated RBC Nucleated RBC % (auto) Sample Site Art Line Art Line POC pH 7.33 L 7.32 L POC pCO2 43 45 POC pO2 55 L 69 L POC HCO3 23 23 POC Total CO2 24 25 POC Base Excess -3.0 -3.0 ABG pH (Temp Correct) 7.322 L 7.315 L ABG pCO2 (Temp Corrct 44 46 POC ABG pO2 at Pt Temp 58 72 POC ABG O2 Sat 86.0 L 92.0 Garett Test NA NA O2 Delivery Device Ventilator Ventilator POC O2 Rate 24 24 Minute Ventilation 12.3 Tidal Volume 480 480 PEEP 15 15 POC Sodium 133 L 132 L Sodium POC Potassium 4.3 4.1 Potassium Chloride Carbon Dioxide Anion Gap BUN Creatinine Est Cr Clr Drug Dosing Est GFR ( Amer) Est GFR (Non-Af Amer) BUN/Creatinine Ratio Glucose POC Glucose POC Glucose (other) 207 H Calcium Phosphorus Magnesium Ferritin Total Bilirubin Direct Bilirubin AST ALT Alkaline Phosphatase Total Creatine Kinase Total Protein Albumin Hep B Core IgM Ab Urine Legionella Ag PG Care Time/CCT Total # of Minutes Spent Total Time Spent with Patient: Total time spent is greater than 50% in coordination of care (as documented) at patient's floor/unit and/or counseling patient: Coding Level of Care Code 23871 Subseq Hosp Care Lvl 3 Diagnoses JACQUELINE (acute kidney injury) N17.9
[2019-12-11] MEDS ORDERED: ALTEPLASE, RECOMBINANT 1 MG/ML 2ML VIAL INSTIL ONE (09:50)
[2019-12-11] MEDS ORDERED: CASPOFUNGIN 70 MG in SODIUM CHLORIDE 0.9% 250 ML IV ONE (10:15)
[2019-12-11] MEDS ORDERED: INSULIN GLARGINE SOLOSTAR 100 UNITS/ML 3 ML PEN SQ ONE (10:15)
[2019-12-11] MEDS: methylPREDNISolone 60 MG in SYRINGE 0 ML IV SCH ×2 (10:29→21:58)
--- NOTE | 2019-12-11 10:45 | XCELERA ---
[id number] \\[email or web address]\[id number]
--- NOTE | 2019-12-11 13:03 | Pharmacy Report ---
Pharmacy Glycemic Short Note 2 - Date of Service December 11, 2019 - Glycemic Short BSG Results (Last 24 hours): 12/10/19 12/10/19 12/10/19 13:08 17:25 21:10 Glucose POC Glucose 221 H POC Glucose (other) 151 H 210 H 12/11/19 12/11/19 04:17 07:44 Glucose 234 H POC Glucose POC Glucose (other) 207 H OUTPATIENT ANTIDIABETIC REGIMEN: Per med rec: * Lantus 54 units SQ qPM * Glimepiride, linagliptin, and metformin * A1c = 9.4% 12/06/19 ASSESSMENT: * 64 yo male admitted to the ICU for ARDS, COVID-19 testing NEGATIVE, although still suspicion for COVID-19 infection * Pt is requiring pressor support with levophed and maintained on fentanyl and versed via continuous infusion. Temporary dialysis cath placed to maintain fluid balance in the setting of oliguric JACQUELINE with ATN. * PMH significant for T2DM, tobacco use, COPD, ASA and obesity 12/10: * Patient received 61 units of insulin yesterday (37 basal, 24 bolus). Insulin requirements increasing, BSGs trending upward into the 200s. * Patient also starting methylpred 60 mg q12H, will attempt to avoid insulin infusion but if BSGs further increased may need to start * Patients receiving steroids equivalent to prednisone 40 mg daily and above typically require an additional 0.4 units/kg of insulin in addition to basal needed, however, will be conservative and increase total possible lantus dose to ~.25 units/kg above home regimen. * AM BSG 207, still on trophic tube feeds. Tighten correction factor for now. 12/08: * Patient received a total of 29 units of insulin yesterday (25 basal, 4 bolus). Still requiring much less than home needs indicate. Will monitor. * BSGs well controlled today * Patient was started on trophic tube feeds. I don't anticipate this effecting BSGs too much, until rate/diet is advanced, will defer carb coverage for now. 12/07 * Since the time of admission, patient has been given two doses of Lantus (20 units on 4/2 PM and 15 units on 4/4 PM). Fasting BSG of 184 mg/dL this am. I would have expected this to be higher based on home dose of Lantus. * will schedule Lantus q12 based on BSG scale * Add Novolog coverage q4h - will utilize stress of 3 dosing due to above stressors and critical illness PLAN FOR INPATIENT GLYCEMIC CONTROL: * Hold outpatient oral diabetes medications * Basal insulin * Lantus per scale: Received 35 units total this AM per scale PM * BSG < 140: 25 units * BSG 140-180: 35 units * BSG >180: 45 units * Bolus insulin * NovoLog per scale ACHS or Q6hrs while NPO * Goal Range: Low 120 mg/dL - High 150 mg/dL * Correction Factor: 12 mg/dL/unit * Nutritional / Prandial insulin--will hold off while TFs are trophic, plan on per carb ratio of 1 unit per 6 grams CHO consumed once TFs advanced PLAN FOR DISCHARGE: * pending
--- NOTE | 2019-12-11 13:42 | Critical Care Consultation ---
Date of Consultation December 11, 2019 Assessment & Plan (1) ARDS (adult respiratory distress syndrome): Reason Critically Ill: 64-year-old male with acute hypoxic respiratory failure presumptively secondary to 2019 24-hour events: 9 beats of NSVT. Patient was started on hemodialysis on 12/08/2019. Still on high PEEP. Covid-19 was negative from [facility] -- ARDS Continue with lung protective ventilation High PEEP, low tidal volume to keep Plateau < 30 with permissive hypercapnea if need be. Monitor ABGs Etiology quite unclear right now. Patient had bio fire x2 which has been negative along with influenza negative x2.. Patient came in with hypoxic respiratory failure ARDS and shock now leading towards renal failure needing hemodialysis. The timeline goes with Covid-19 infection. Covid-19 negative from [facility] labs which was sent at the day of presentation Continue with droplet precaution for the time being. --NSVT Keep potassium greater than 4, magnesium greater than 2, phosphorus greater than 3 Monitor --JACQUELINE With hyperphosphatemia now needing hemodialysis Hemodialysis started on 12/08/2019 Nephrology on board Follow recommendations --Diabetes type 2 Continue with insulin sliding scale. Glycemic control as per pharmacy Patient was on glargine as well at home. --Severe protein calorie malnutrition Albumin less than 0.9 Start trophic feeds --Prophylaxis Continue with Pepcid and heparin subcu --Prognosis guarded -- Lines: Left subclavian Central line, right femoral Shiley catheter Radial arterial line Endotracheal tube Plan: In-N-Out: Patient is -1500 in the last 24 hours ABG today 7.3 this is on 80% FiO2 and PEEP of 15 Continue with trophic feeds. Titrate down sedation to Rass -1 Continue with doxycycline and Rocephin for the time being. Chest x-ray from today shows worsening opacities bilaterally. Continue with airborne precautions RADHA Kapoor today Called Pretty Harris for on the given number. Explained the critical condition of the patient and he requiring high PEEP and ventilatory support was still being on vasopressors. Explained the importance that given that high ventilatory support that he has an vasopressor support already on. Doing chest compressions on him when time comes will not be beneficial but will cause more harm. Patient wants to come and see him before she makes any decision. Message will be relayed to the administration about her wish to come and see him. Prognosis is guarded. I have personally spent 51 minutes of critical care time in the direct management of this patient. This is a life/limb threatening event. This includes time spent evaluating patient, direct bedside care, chart review, placing orders, interpretation of diagnostic studies, discussion with consultants, patient, and family members, as well as other required patient management activities. This time is exclusive of all separately billable procedures, and teaching time and separate from and in addition to any other critical care service time. Please note the above document was generated using voice recognition software. It may contain grammatical, syntax or spelling errors. History of Present Illness Attending Physician: Mary Lucas MD Allergies Allergy/AdvReac Type Severity Reaction Status Date / Time No Known Allergies Allergy Unknown Verified 12/05/19 09:58 Home Medications Home Medications Medication Instructions Recorded Confirmed Type amlodipine 10 mg tablet 10 mg PO DAILY #90 tab 04/17/19 12/05/19 History glimepiride 4 mg tablet 8 mg PO DAILY #180 tab 04/17/19 12/05/19 History lisinopril 20 2 tab PO DAILY #180 tab 04/17/19 12/05/19 History mg-hydrochlorothiazide 12.5 mg tablet atorvastatin 40 mg tablet 40 mg PO DAILY #90 tab 05/08/19 12/05/19 Rx insulin syringe-needle U-100 1 mL #100 ea 06/05/19 08/22/19 Rx 30 gauge x 1/2" linagliptin 5 mg tablet 5 mg PO DAILY #90 tab 06/05/19 12/05/19 Rx metformin 1,000 mg tablet 1,000 mg PO UD #180 tab 08/20/19 12/05/19 History insulin glargine 100 unit/mL 54 units SUBCUT QPM #5 vial 09/09/19 12/05/19 Rx subcutaneous solution Patient History Medical History Chronic obstructive pulmonary disease (Acute) Current smoker (Acute) Diabetes mellitus type II, uncontrolled (Chronic) Dysplastic nevus Gastroesophageal reflux disease (Acute) Gout (Acute) Hyperlipidemia (Chronic) Hypertension (Chronic) Obstructive sleep apnea (Chronic) Sebaceous cyst Surgical History No pertinent past surgical history Family History Mother Diabetes Father Cancer Lung cancer age 53 Aunt Colorectal cancer Denies family history of Ovarian cancer Prostate cancer Myocardial infarction Breast cancer Social History Preferred Language: Guyanese Communication Ability: Unable Visual Impairment: No Limitations Hearing Ability: Normal Director Property Required: No Beliefs That Will Affect Care: None marital status: Current Living Situation: Spouse Current Living Situation Comment: lives with ; no kids current occupational status: employed 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; HV[employer] Feels Safe at Home: Yes Smoking Status: Current every day smoker Tobacco Type: cigarettes ; Cigarettes Per Day: does not know, recently none ; Second Hand Exposure: No ; Hx Alcohol Use: Yes Hx Substance Use: No Childhood Exposure to Second-Hand Smoke: Yes Dental Care, Regularly: Yes Physical Activity Frequency: Does not Exercise Seatbelt Use: sometimes Sunscreen Use: No Physical Exam Physical Exam: Constitutional: No acute distress, sedated HEENT: PERRLA Respiratory system: Decreased air entry bilaterally, mild crackles bilateral lower lobes, no wheeze, no rhonchi CVS: S1-S2 positive, no murmurs or gallops Abdomen: Soft, nontender, nondistended, positive bowel sounds x4 Extremities: +2 pulses bilaterally radialis/ dorsalis pedis, no cyanosis, positive edema bilateral lower extremity Neuro: Spontaneous occasional breaths over the vent, positive gag, positive corneal Psych: Unable to assess G/U: Positive Kapoor Skin: no rashes, warm and dry Lymphatic: no cervical or axillary lymphadenopathy Results & Data Results & Data ([facility]) Vital Signs (Past 12 Hours) Vital Signs Temp Pulse Pulse Resp BP Pulse Ox 12/11/19 13:20 69 127/54 L 12/11/19 13:00 69 126/55 L 12/11/19 12:40 66 133/55 L 12/11/19 12:20 74 102/44 L 12/11/19 11:55 37.7 C H 74 12/11/19 10:42 68 146/70 H 91 12/11/19 10:12 64 131/65 91 12/11/19 09:42 66 128/61 90 12/11/19 09:12 65 160/74 H 91 12/11/19 08:42 65 171/77 H 91 12/11/19 08:12 65 156/66 H 90 12/11/19 08:00 82 12/11/19 07:42 63 141/68 H 90 12/11/19 07:12 63 138/66 90 12/11/19 07:10 66 28 H 90 12/11/19 06:42 66 149/68 H 90 12/11/19 06:05 70 26 H 90 12/11/19 06:00 68 92 12/11/19 05:42 65 157/62 H 93 12/11/19 05:12 65 147/99 H 93 12/11/19 05:00 64 93 12/11/19 04:42 63 155/88 H 93 12/11/19 04:12 64 146/70 H 93 12/11/19 04:00 64 94 12/11/19 03:42 64 154/59 H 94 12/11/19 03:30 65 94 12/11/19 03:12 65 130/89 93 12/11/19 03:03 65 25 H 93 12/11/19 03:00 64 93 12/11/19 02:42 65 151/57 H 93 12/11/19 02:30 67 93 12/11/19 02:12 66 144/77 H 92 12/11/19 02:00 63 95 Coding Diagnoses ARDS (adult respiratory distress syndrome) J80
--- NOTE | 2019-12-11 14:46 | Critical Care Progress Note ---
Date of Service December 11, 2019 Assessment & Plan (1) ARDS (adult respiratory distress syndrome): Reason Critically Ill: 64-year-old male with acute hypoxic respiratory failure presumptively secondary to 2019 24-hour events: Overnight patient desaturated a little bit for which his FiO2 was increased to 65%. Covid-19 was negative from [facility] -- ARDS Continue with lung protective ventilation High PEEP, low tidal volume to keep Plateau < 30 with permissive hypercapnea if need be. Monitor ABGs Etiology quite unclear. Patient had bio fire x2 which has been negative along with influenza negative x2.. Patient came in with hypoxic respiratory failure ARDS and shock now leading towards renal failure needing hemodialysis. Covid-19 negative from [facility] labs which was sent at the day of presentation. Continue with droplet precaution as we are not sure of the etiology. --NSVT Keep potassium greater than 4, magnesium greater than 2, phosphorus greater than 3 Monitor Echo done 12/11/2019 shows good ejection fraction with no ventricular wall dyskinesia. --JACQUELINE With hyperphosphatemia now needing hemodialysis Hemodialysis started on 12/08/2019 Nephrology on board Follow recommendations --Diabetes type 2 Continue with insulin sliding scale. Glycemic control as per pharmacy Patient was on glargine as well at home. --Severe protein calorie malnutrition Albumin less than 0.9 Start trophic feeds --Prophylaxis Continue with Pepcid and heparin subcu --Prognosis guarded -- Lines: Left subclavian Central line, right femoral Shiley catheter Radial arterial line Endotracheal tube Plan: In-N-Out: -1500 in the last 24 hours ABG today ABG 7.33/42/55 this was on 60% FiO2 it was increased to 65% Continue with trophic feeds. Given that there is no improvement in his respiratory status requiring high PEEP will give Solu-Medrol 60 mg every 12 hours to see if there is any benefit from it. Patient's WBC count as well as platelets went up a little bit today. Could be reactive. Would give patient caspofungin at least for 24 to 48 hours to see if there is any benefit. Blood cultures have been repeated today. Chest x-ray today shows slight improvement in aeration bilaterally. Multilobular pulmonary infiltrate still persists Continue with airborne precautions Had one-to-one talk with Mrs. Hinkle. Discussed regarding the current condition about patient's multiorgan failure and no clinical improvement since last couple of days. Explained to her that if there is no improvement in the next 24 to 48 hours prognosis will be grim. Recommendation was made to think about making the patient no CPR as there will be no added benefit but more suffering. Prognosis is guarded. I have personally spent 55 minutes of critical care time in the direct management of this patient. This is a life/limb threatening event. This includes time spent evaluating patient, direct bedside care, chart review, placing orders, interpretation of diagnostic studies, discussion with consultants, patient, and family members, as well as other required patient management activities. This time is exclusive of all separately billable procedures, and teaching time and separate from and in addition to any other critical care service time. Please note the above document was generated using voice recognition software. It may contain grammatical, syntax or spelling errors. Admission and Anticipated Discharge Date Admission Date: December 05, 2019 Subjective Patient seen and examined at bedside. No acute distress Patient still on low-dose vasopressors Levophed 0.08, midazolam 3. Afebrile in the last 12 hours. -1500 in the last 24 hours. Review of Systems Review of Systems: Unobtainable due to cognitive status and Unobtainable due to endotracheal tube Physical Exam Physical Exam: Constitutional: No acute distress, sedated HEENT: PERRLA Respiratory system: Decreased air entry bilaterally, mild crackles bilateral lower lobes, no wheeze, no rhonchi CVS: S1-S2 positive, no murmurs or gallops Abdomen: Soft, nontender, nondistended, positive bowel sounds x4 Extremities: +2 pulses bilaterally radialis/ dorsalis pedis, no cyanosis, positive edema bilateral lower extremity Neuro: Spontaneous occasional breaths over the vent, positive gag, positive corneal Psych: Unable to assess G/U: No Kapoor Skin: no rashes, warm and dry Lymphatic: no cervical or axillary lymphadenopathy Results & Data Results & Data ([facility]) Vital Signs (Past 12 Hours) Vital Signs Temp Pulse Pulse Resp BP Pulse Ox 12/11/19 14:20 74 109/51 L 12/11/19 14:00 73 111/52 L 12/11/19 13:40 64 115/51 L 12/11/19 13:20 69 127/54 L 12/11/19 13:00 69 126/55 L 12/11/19 12:40 66 133/55 L 12/11/19 12:20 74 102/44 L 12/11/19 11:55 37.7 C H 74 12/11/19 10:42 68 146/70 H 91 12/11/19 10:12 64 131/65 91 12/11/19 09:42 66 128/61 90 12/11/19 09:12 65 160/74 H 91 12/11/19 08:42 65 171/77 H 91 12/11/19 08:12 65 156/66 H 90 12/11/19 08:00 82 12/11/19 07:42 63 141/68 H 90 12/11/19 07:12 63 138/66 90 12/11/19 07:10 66 28 H 90 12/11/19 06:42 66 149/68 H 90 12/11/19 06:05 70 26 H 90 12/11/19 06:00 68 92 12/11/19 05:42 65 157/62 H 93 12/11/19 05:12 65 147/99 H 93 12/11/19 05:00 64 93 12/11/19 04:42 63 155/88 H 93 12/11/19 04:12 64 146/70 H 93 12/11/19 04:00 64 94 12/11/19 03:42 64 154/59 H 94 12/11/19 03:30 65 94 12/11/19 03:12 65 130/89 93 12/11/19 03:03 65 25 H 93 12/11/19 03:00 64 93 12/11/19 02:42 65 151/57 H 93 12/11/19 04:17 12/11/19 04:17 Laboratory Tests 12/10/19 12/10/19 12/10/19 03:52 06:04 06:04 Ferritin AST 77 H Lactate Dehydrogenase 494 H Total Creatine Kinase 2449 H C-Reactive Protein 37.60 H 12/11/19 04:17 Ferritin 1713.5 H AST Lactate Dehydrogenase Total Creatine Kinase C-Reactive Protein Coding Level of Care Code Critical Care 1st 30-74 mins Diagnoses ARDS (adult respiratory distress syndrome) J80 Time Spent (min) 55
--- NOTE | 2019-12-11 15:06 | Hospitalist Progress Note ---
Date of Service December 11, 2019 Assessment & Plan (1) Acute respiratory failure with hypoxia: Admitted to ICU. B/l pneumonia on chest x-ray, CXR with bilat peripheral infiltrates, slightly improved today Clinical picture highly concerning for COVID-19 (normal wbc count, lymphopenia, elevated AST,elevated LDH, elevated d-dimer, cxr findings, etc). Profoundly hypoxic upon presentation intubated in ED, early intubation-continues on vent, not ready yet for extubation-remains on FiO2 65%, PEEP 15 Defer vent management to [employer] COVID negative as of 12/07 from [facility], and [facility] COVID test now also negative from 12/04 was in prone position 12/04 for 16 hours, now supine again Continues to be with a very guarded prognosis with worsening renal function requiring hemodialysis and high temperatures continuing, worsening pulmonary status, continued need for mechanical ventilation (2) ARDS (adult respiratory distress syndrome): as above, secondary to likely COVID -starting trial of IV steroids today (3) Suspected 2018 novel coronavirus infection: see above in "acute hypoxic resp failure" biofire negative x 2 flu negative COVID - negative on 12/07 from [facility] and also now on [facility] COVID test -Continue to highly suspect COVID-19--> continue droplet and contact precautions -Pulm/Crit Care is considering repeat tracheal aspirate sample to send off for testing-decision to be made today in consult with other Pulm/ID (4) Sepsis: Secondary to pneumonia high concern of COVID-19 as above -continue supportive care (5) Bilateral pneumonia: see above blood cx's NGTD Sputum cx no growth Legionella urine antigen negative broad spectrum antibiotics continue with Rocephin and doxy -adding IV Caspofungin today empirically (6) Acute renal failure (ARF): Secondary to dehydration/sepsis/ATN Normosol hydration given initially Now on hemodialysis, started 12/07, has SHiley catheter in rt femoral -serial labs -continue to HOLD MIKAEL and HCTZ -avoid NSAIDs -AAKASH, ANCA, immunological workup still pending -Training Generalist now at 4.88,worse, with oliguria, metabolic acidosis now improved with HD Dr. Ferguson of Nephrology consulted-appreciated (7) Chronic obstructive pulmonary disease: by history, but not on inhalers at home. (8) Current smoker: 50+ years of smoking per patient (9) Gastroesophageal reflux disease: Pepcid protocol per ICU (10) Gout: no recent issues not on prophylaxis (11) Obstructive sleep apnea: noted (12) Hyperlipidemia: hold STATIN (13) Hypertension: HOLDING anti-hypertensives (HCTZ, MIKAEL, norvasc, etc) for hypotension--> still requiring levophed (14) Diabetes mellitus type II, uncontrolled: hyperglycemic ICU protocol defer to pharmacy (15) Hypokalemia: resolved (16) Hyponatremia: likely due to dehydration/volume depletion and chronic HCTZ use improved, on HD (17) Metabolic encephalopathy: multifactorial - sepsis, pneumonia, possible COVID-19, hyponatremia, hypoxia, etc supportive care (18) Rhabdomyolysis: CPK elevated at 2449 and now down to 1715 Likely secondary to sepsis/infection -follow CPK (19) DVT prophylaxis: SQ Heparin Dispo-remains in critical condition with very poor prognosis for recovery with multisystem organ failure FULL CODE Continued stay in ICU Admission and Anticipated Discharge Date Admission Date: December 05, 2019 Subjective Pt remains intubated, on low dose pressors. Getting HD again today. Discussed case with transcripter Review of Systems Review of Systems: Unobtainable due to endotracheal tube Physical Exam Physical Exam: I observed the patient through the window, but deferred PE to [employer] due to COVID 19 and limiting provider exposure Results & Data Results & Data ([facility]) Vital Signs (Past 12 Hours) Vital Signs Temp Pulse Pulse Resp BP Pulse Ox 12/11/19 14:40 76 104/51 L 12/11/19 14:20 74 109/51 L 12/11/19 14:12 73 128/71 92 12/11/19 14:00 73 111/52 L 12/11/19 13:42 76 128/71 91 12/11/19 13:40 64 115/51 L 12/11/19 13:20 69 127/54 L 12/11/19 13:12 67 135/73 90 12/11/19 13:00 69 126/55 L 12/11/19 12:42 67 152/74 H 90 12/11/19 12:40 66 133/55 L 12/11/19 12:20 74 102/44 L 12/11/19 12:12 64 142/72 H 91 12/11/19 11:55 37.7 C H 74 12/11/19 11:42 69 141/66 H 91 04/08/20 11:12 67 143/69 H 91 12/11/19 10:42 68 146/70 H 91 12/11/19 10:12 64 131/65 91 12/11/19 09:42 66 128/61 90 12/11/19 09:12 65 160/74 H 91 12/11/19 08:42 65 171/77 H 91 12/11/19 08:12 65 156/66 H 90 12/11/19 08:00 82 12/11/19 07:42 63 141/68 H 90 12/11/19 07:12 63 138/66 90 12/11/19 07:10 66 28 H 90 12/11/19 06:42 66 149/68 H 90 12/11/19 06:05 70 26 H 90 12/11/19 06:00 68 92 12/11/19 05:42 65 157/62 H 93 12/11/19 05:12 65 147/99 H 93 12/11/19 05:00 64 93 12/11/19 04:42 63 155/88 H 93 12/11/19 04:12 64 146/70 H 93 12/11/19 04:00 64 94 12/11/19 03:42 64 154/59 H 94 12/11/19 03:30 65 94 12/11/19 03:12 65 130/89 93 12/11/19 03:03 65 25 H 93 Laboratory Results 12/11/19 12/11/19 12/11/19 Range/Units 13:15 09:56 09:04 WBC (4.8-10.8) K/uL RBC (4.7-6.1) M/uL Hgb (14.0-18.0) g/dL POC Hgb 9.9 L (14.0-18.0) g/dl Hct (42-52) % POC Hct 29 L (42-52) % MCV (80-100) fL MCH (25-34) pg MCHC (32-36) g/dL RDW Std Deviation (36.4-46.3) fL RDW Coeff of Josué (11.5-14.5) % Plt Count (130-400) K/uL MPV (7.4-10.4) fL Immature Gran % (Auto) % Neut % (Auto) % Lymph % (Auto) % Armstrong % (Auto) % Eos % (Auto) % Baso % (Auto) % Immature Gran # (Auto) (0.00-0.02) K/uL Neut # (Auto) (1.4-6.5) K/uL Lymph # (Auto) (1.2-3.4) K/uL Armstrong # (Auto) (0.11-0.59) K/uL Eos # (Auto) (0-0.5) K/uL Baso # (Auto) (0-0.2) K/uL Absolute Nucleated RBC (0-0) K/uL Nucleated RBC % (auto) % Sample Site Art Line POC pH 7.32 L (7.35-7.45) POC pCO2 45 (35-46) mmHg POC pO2 69 L (80-95) mmHg POC HCO3 23 (19-24) vivi/L POC Total CO2 25 (24-31) mmol/L POC Base Excess -3.0 (-9-1.8) vivi/L ABG pH (Temp Correct) 7.315 L (7.35-7.45) ABG pCO2 (Temp Corrct 46 (35-46) mmHg POC ABG pO2 at Pt Temp 72 POC ABG O2 Sat 92.0 (90-95) % Garett Test NA O2 Delivery Device Ventilator POC O2 Rate 24 Minute Ventilation 12.3 Tidal Volume 480 PEEP 15 POC Sodium 132 L (135-144) mmol/L Sodium (136-145) mmol/L POC Potassium 4.1 (3.3-5.0) mmol/L Potassium (3.5-5.1) mmol/L Chloride (98-107) mmol/L Carbon Dioxide (21-32) mmol/L Anion Gap (3-11) BUN (7-18) mg/dl Creatinine (0.6-1.4) mg/dl Est Cr Clr Drug Dosing ml/min Est GFR ( Amer) Est GFR (Non-Af Amer) BUN/Creatinine Ratio (10-20) Glucose (70-99) mg/dl POC Glucose (70-99) mg/dl POC Glucose (other) 204 H (70-99) mg/dl Calcium (8.5-10.1) mg/dl Phosphorus (2.5-4.9) mg/dl Magnesium (1.8-2.4) mg/dl Ferritin (8-388) ng/ml Total Bilirubin (0.2-1) mg/dl Direct Bilirubin (0-0.2) mg/dl AST (15-37) U/L ALT (12-78) U/L Alkaline Phosphatase (45-117) U/L Total Creatine Kinase (39-308) U/L Total Protein (6.4-8.2) gm/dl Albumin (3.4-5.0) gm/dl Beta-(1,3)-D-Glucan Pending B-(1,3)-D-Glucan Intrp Pending 12/11/19 12/11/19 12/11/19 Range/Units 07:44 06:04 04:52 WBC (4.8-10.8) K/uL RBC (4.7-6.1) M/uL Hgb (14.0-18.0) g/dL POC Hgb 10.2 L (14.0-18.0) g/dl Hct (42-52) % POC Hct 30 L (42-52) % MCV (80-100) fL MCH (25-34) pg MCHC (32-36) g/dL RDW Std Deviation (36.4-46.3) fL RDW Coeff of Josué (11.5-14.5) % Plt Count (130-400) K/uL MPV (7.4-10.4) fL Immature Gran % (Auto) % Neut % (Auto) % Lymph % (Auto) % Armstrong % (Auto) % Eos % (Auto) % Baso % (Auto) % Immature Gran # (Auto) (0.00-0.02) K/uL Neut # (Auto) (1.4-6.5) K/uL Lymph # (Auto) (1.2-3.4) K/uL Armstrong # (Auto) (0.11-0.59) K/uL Eos # (Auto) (0-0.5) K/uL Baso # (Auto) (0-0.2) K/uL Absolute Nucleated RBC (0-0) K/uL Nucleated RBC % (auto) % Sample Site Art Line POC pH 7.33 L (7.35-7.45) POC pCO2 43 (35-46) mmHg POC pO2 55 L (80-95) mmHg POC HCO3 23 (19-24) vivi/L POC Total CO2 24 (24-31) mmol/L POC Base Excess -3.0 (-9-1.8) vivi/L ABG pH (Temp Correct) 7.322 L (7.35-7.45) ABG pCO2 (Temp Corrct 44 (35-46) mmHg POC ABG pO2 at Pt Temp 58 POC ABG O2 Sat 86.0 L (90-95) % Garett Test NA O2 Delivery Device Ventilator POC O2 Rate 24 Minute Ventilation Tidal Volume 480 PEEP 15 POC Sodium 133 L (135-144) mmol/L Sodium (136-145) mmol/L POC Potassium 4.3 (3.3-5.0) mmol/L Potassium (3.5-5.1) mmol/L Chloride (98-107) mmol/L Carbon Dioxide (21-32) mmol/L Anion Gap (3-11) BUN (7-18) mg/dl Creatinine (0.6-1.4) mg/dl Est Cr Clr Drug Dosing ml/min Est GFR ( Amer) Est GFR (Non-Af Amer) BUN/Creatinine Ratio (10-20) Glucose (70-99) mg/dl POC Glucose (70-99) mg/dl POC Glucose (other) 207 H 218 H (70-99) mg/dl Calcium (8.5-10.1) mg/dl Phosphorus (2.5-4.9) mg/dl Magnesium (1.8-2.4) mg/dl Ferritin (8-388) ng/ml Total Bilirubin (0.2-1) mg/dl Direct Bilirubin (0-0.2) mg/dl AST (15-37) U/L ALT (12-78) U/L Alkaline Phosphatase (45-117) U/L Total Creatine Kinase (39-308) U/L Total Protein (6.4-8.2) gm/dl Albumin (3.4-5.0) gm/dl Beta-(1,3)-D-Glucan B-(1,3)-D-Glucan Intrp 12/11/19 12/11/19 12/10/19 Range/Units 04:17 04:17 23:13 WBC 11.46 H (4.8-10.8) K/uL RBC 3.62 L (4.7-6.1) M/uL Hgb 10.5 L (14.0-18.0) g/dL POC Hgb (14.0-18.0) g/dl Hct 32.1 L (42-52) % POC Hct (42-52) % MCV 88.7 (80-100) fL MCH 29.0 (25-34) pg MCHC 32.7 (32-36) g/dL RDW Std Deviation 47.9 H (36.4-46.3) fL RDW Coeff of Josué 14.6 H (11.5-14.5) % Plt Count 428 H (130-400) K/uL MPV 9.0 (7.4-10.4) fL Immature Gran % (Auto) 5.3 % Neut % (Auto) 83.7 % Lymph % (Auto) 6.1 % Armstrong % (Auto) 4.5 % Eos % (Auto) 0.1 % Baso % (Auto) 0.3 % Immature Gran # (Auto) 0.61 H (0.00-0.02) K/uL Neut # (Auto) 9.59 H (1.4-6.5) K/uL Lymph # (Auto) 0.70 L (1.2-3.4) K/uL Armstrong # (Auto) 0.52 (0.11-0.59) K/uL Eos # (Auto) 0.01 (0-0.5) K/uL Baso # (Auto) 0.03 (0-0.2) K/uL Absolute Nucleated RBC 0.03 H (0-0) K/uL Nucleated RBC % (auto) 0.3 % Sample Site POC pH (7.35-7.45) POC pCO2 (35-46) mmHg POC pO2 (80-95) mmHg POC HCO3 (19-24) vivi/L POC Total CO2 (24-31) mmol/L POC Base Excess (-9-1.8) vivi/L ABG pH (Temp Correct) (7.35-7.45) ABG pCO2 (Temp Corrct (35-46) mmHg POC ABG pO2 at Pt Temp POC ABG O2 Sat (90-95) % Garett Test O2 Delivery Device POC O2 Rate Minute Ventilation Tidal Volume PEEP POC Sodium (135-144) mmol/L Sodium 133 L (136-145) mmol/L POC Potassium (3.3-5.0) mmol/L Potassium 4.7 (3.5-5.1) mmol/L Chloride 100 (98-107) mmol/L Carbon Dioxide 23 (21-32) mmol/L Anion Gap 10.0 (3-11) BUN 74 H D (7-18) mg/dl Creatinine 4.88 H* D (0.6-1.4) mg/dl Est Cr Clr Drug Dosing 17.7 ml/min Est GFR ( Amer) 13.3 Est GFR (Non-Af Amer) 11.5 BUN/Creatinine Ratio 15.1 (10-20) Glucose 234 H (70-99) mg/dl POC Glucose (70-99) mg/dl POC Glucose (other) 252 H (70-99) mg/dl Calcium 9.2 D (8.5-10.1) mg/dl Phosphorus 7.0 H D (2.5-4.9) mg/dl Magnesium 2.9 H (1.8-2.4) mg/dl Ferritin 1713.5 H (8-388) ng/ml Total Bilirubin 0.2 (0.2-1) mg/dl Direct Bilirubin 0.1 (0-0.2) mg/dl AST 60 H (15-37) U/L ALT 33 (12-78) U/L Alkaline Phosphatase 99 (45-117) U/L Total Creatine Kinase 1715 H (39-308) U/L Total Protein 7.3 D (6.4-8.2) gm/dl Albumin 1.0 L (3.4-5.0) gm/dl Beta-(1,3)-D-Glucan B-(1,3)-D-Glucan Intrp 12/10/19 12/10/19 Range/Units 21:10 17:25 WBC (4.8-10.8) K/uL RBC (4.7-6.1) M/uL Hgb (14.0-18.0) g/dL POC Hgb (14.0-18.0) g/dl Hct (42-52) % POC Hct (42-52) % MCV (80-100) fL MCH (25-34) pg MCHC (32-36) g/dL RDW Std Deviation (36.4-46.3) fL RDW Coeff of Josué (11.5-14.5) % Plt Count (130-400) K/uL MPV (7.4-10.4) fL Immature Gran % (Auto) % Neut % (Auto) % Lymph % (Auto) % Armstrong % (Auto) % Eos % (Auto) % Baso % (Auto) % Immature Gran # (Auto) (0.00-0.02) K/uL Neut # (Auto) (1.4-6.5) K/uL Lymph # (Auto) (1.2-3.4) K/uL Armstrong # (Auto) (0.11-0.59) K/uL Eos # (Auto) (0-0.5) K/uL Baso # (Auto) (0-0.2) K/uL Absolute Nucleated RBC (0-0) K/uL Nucleated RBC % (auto) % Sample Site POC pH (7.35-7.45) POC pCO2 (35-46) mmHg POC pO2 (80-95) mmHg POC HCO3 (19-24) vivi/L POC Total CO2 (24-31) mmol/L POC Base Excess (-9-1.8) vivi/L ABG pH (Temp Correct) (7.35-7.45) ABG pCO2 (Temp Corrct (35-46) mmHg POC ABG pO2 at Pt Temp POC ABG O2 Sat (90-95) % Garett Test O2 Delivery Device POC O2 Rate Minute Ventilation Tidal Volume PEEP POC Sodium (135-144) mmol/L Sodium (136-145) mmol/L POC Potassium (3.3-5.0) mmol/L Potassium (3.5-5.1) mmol/L Chloride (98-107) mmol/L Carbon Dioxide (21-32) mmol/L Anion Gap (3-11) BUN (7-18) mg/dl Creatinine (0.6-1.4) mg/dl Est Cr Clr Drug Dosing ml/min Est GFR ( Amer) Est GFR (Non-Af Amer) BUN/Creatinine Ratio (10-20) Glucose (70-99) mg/dl POC Glucose 221 H (70-99) mg/dl POC Glucose (other) 210 H (70-99) mg/dl Calcium (8.5-10.1) mg/dl Phosphorus (2.5-4.9) mg/dl Magnesium (1.8-2.4) mg/dl Ferritin (8-388) ng/ml Total Bilirubin (0.2-1) mg/dl Direct Bilirubin (0-0.2) mg/dl AST (15-37) U/L ALT (12-78) U/L Alkaline Phosphatase (45-117) U/L Total Creatine Kinase (39-308) U/L Total Protein (6.4-8.2) gm/dl Albumin (3.4-5.0) gm/dl Beta-(1,3)-D-Glucan B-(1,3)-D-Glucan Intrp Diagnostic Findings CXR reviewed PG Care Time/CCT Total # of Minutes Spent Total Time Spent with Patient: Total time spent is greater than 50% in coordination of care (as documented) at patient's floor/unit and/or counseling patient: Coding Level of Care Code None Diagnoses Acute respiratory failure with hypoxia J96.01 ARDS (adult respiratory distress syndrome) J80 Suspected 2019 novel coronavirus infection R68.89 Sepsis A41.9 Bilateral pneumonia J18.9 Lung location: lower lobe of lung Pneumonia type: due to unspecified organism Acute renal failure (ARF) N17.9 Acute renal failure type: unspecified Chronic obstructive pulmonary disease J44.9 Current smoker F17.200 Gastroesophageal reflux disease K21.9 Gout M10.9 Obstructive sleep apnea G47.33 Hyperlipidemia E78.5 Hypertension I10 Diabetes mellitus type II, uncontrolled E11.65 Hypokalemia E87.6 Hyponatremia E87.1 Metabolic encephalopathy G93.41 Rhabdomyolysis M62.82 DVT prophylaxis Z29.9 (1) Bilateral pneumonia Lung location: lower lobe of lung Pneumonia type: due to unspecified organism Qualified Code(s): J18.9 - Pneumonia, unspecified organism (2) Acute renal failure (ARF) Acute renal failure type: unspecified Qualified Code(s): N17.9 - Acute kidney failure, unspecified
[2019-12-11] MEDS: HEPARIN SOD (PORCINE) 1000 UNIT/ML 10 ML VIAL IV SCH ×3 (15:13→19:52)
[2019-12-11] MEDS: NOREPINEPHRINE BIT INJ 16 MG in DEXTROSE 5% 500 ML IV SCH (15:36)
--- NOTE | 2019-12-11 16:09 | Ultrasound Report ---
ULTRASOUND BILATERAL LOWER EXTREMITY VENOUS CLINICAL HISTORY: Dyspnea. Clinical concern for deep venous thrombosis. COMPARISON STUDY: No priors. TECHNIQUE: Real-time, grayscale, and color Doppler sonography of the deep veins of the right and left lower extremity was performed from the inguinal crease to the calf. Compression and augmentation wer e utilized. FINDINGS: There is no sonographic evidence of deep venous thrombosis identified in the right or left lower extremity. The right common femoral vein was not visualized due to overlying bandaging material . The left common femoral vein, as well as the bilateral superficial femoral and popliteal veins are patent and normally compressible bilaterally. The greater saphenous vein and the profunda femoris vei n at the junction with the common femoral vein are clear in both legs. The visualized calf veins are patent bilaterally. IMPRESSION: There is no sonographic evidence of deep venous thrombosis identified in the right or lef t lower extremity. ACT 112: Negative or not required by law. Electronically signed by: Wyatt Soto M.D. 12/11/2019 4:08 PM
[2019-12-11] MEDS ORDERED: INSULIN HUMAN REGULAR PER UNIT 10 UNITS in SYRINGE 9.9 ML IV STA (20:52)
[2019-12-11] MEDS ORDERED: DOCUSATE SODIUM 100 MG CAP PO SCH (21:00)
[2019-12-11] MEDS: DOCUSATE SODIUM SYRUP 100 MG/10 ML UDC NG SCH (22:11)
[2019-12-12] MEDS: HEPARIN SOD 5,000 UNIT/0.5 ML VIAL SQ SCH ×3 (04:04→19:59)
[2019-12-12] MEDS: MIDAZOLAM HCL 125 MG/250 ML BAG IV SCH ×2 (04:04→17:54)
[2019-12-12] MEDS: PEPTAMEN INTENSE VHP 1.0 CAL 1,000 ML BAG OG SCH (04:04)
[2019-12-12] MEDS: fentaNYL DRIP 1,250 MCG/250 ML BAG IV SCH (04:10)
[2019-12-12 04:34] LABS: Hematocrit (blood only) 32.6 % (42-52); Hemoglobin 10.4 g/dL (14.0-18.0); Mean Corpuscular Hemoglobin 28.6 pg (25-34); Mean Corpuscular Hgb Conc 31.9 g/dL (32-36); Mean Corpuscular Volume 89.6 fL (80-100); Mean Platelet Volume 8.8 fL (7.4-10.4); Nucleated RBC # (auto) 0.03 K/uL (0-0); Nucleated RBC % (auto) 0.3 %; Platelet Count 397 K/uL (130-400); RDW Coefficient of Variation 14.7 % (11.5-14.5); RDW Standard Deviation 48.3 fL (36.4-46.3); Red Blood Count 3.64 M/uL (4.7-6.1); White Blood Count 13.45 K/uL (4.8-10.8)
[2019-12-12 04:46] LABS: INR 1.6 (0.9-1.1); Prothrombin Time 16.7 Seconds (9.0-12.0)
[2019-12-12] MEDS: INSULIN ASPART 100 UNITS/ML 3 ML PEN SQ SCH ×5 (04:47→20:05)
[2019-12-12 05:05] LABS: BUN Creatinine Ratio 17.4 (10-20); Bilirubin Direct 0.1 mg/dl (0-0.2); Bilirubin,Total 0.3 mg/dl (0.2-1); Creatinine Clr Calc Pharmacy 14.9 ml/min; Est GFR (Non-African American) 9.5; Magnesium 3.2 mg/dl (1.8-2.4); Phosphorus 7.5 mg/dl (2.5-4.9); Potassium 5.5 mmol/L (3.5-5.1); Total Protein 7.2 gm/dl (6.4-8.2)
[2019-12-12 05:14] LABS: Basophils # (auto) 0.02 K/uL (0-0.2); Basophils % (auto) 0.1 %; Immature Granulocytes # (auto) 0.76 K/uL (0.00-0.02); Immature Granulocytes % (auto) 5.7 %; Lymphocytes # (auto) 0.73 K/uL (1.2-3.4); Lymphocytes % (auto) 5.4 %; Monocytes # (auto) 0.52 K/uL (0.11-0.59); Monocytes % (auto) 3.9 %; Neutrophils # (auto) 11.42 K/uL (1.4-6.5); Neutrophils % (auto) 84.9 %
[2019-12-12 05:18] LABS: Beta-Hydroxybutyrate 1.5 mg/dl (0.2-2.81)
[2019-12-12 06:10] LABS: iSTAT Arterial Blood Gas HCO3 22 meg/L (19-24); iSTAT Arterial Blood Gas pCO2 45 mmHg (35-46); iSTAT Arterial Blood Gas pH 7.29 (7.35-7.45); iSTAT Arterial Blood Gas pO2 84 mmHg (80-95); iSTAT Carbon Dioxide 23 mmol/L (24-31); iSTAT Site Art Line
[2019-12-12] MEDS ORDERED: INSULIN HUMAN REGULAR PER UNIT 5 UNITS in SYRINGE 9.9 ML IV PRN (07:57)
[2019-12-12] MEDS: DOCUSATE SODIUM SYRUP 100 MG/10 ML UDC NG SCH ×2 (08:26→20:08)
[2019-12-12] MEDS: methylPREDNISolone 60 MG in SYRINGE 0 ML IV SCH ×2 (08:29→19:59)
[2019-12-12] MEDS: SENNA 8.8 MG/5 ML UDP NG SCH (08:30)
[2019-12-12] MEDS: DOXYCYCLINE HYCLATE 100 MG in DEXTROSE 5% 100 ML IV SCH ×2 (08:53→20:02)
[2019-12-12] MEDS: FAMOTIDINE 20 MG in SYRINGE 3 ML IV SCH (08:53)
[2019-12-12] MEDS: cefTRIAXone SODIUM 2,000 MG in DEXTROSE 5% 50 ML IV SCH (08:54)
[2019-12-12] MEDS: CASPOFUNGIN 50 MG in SODIUM CHLORIDE 0.9% 250 ML IV SCH (08:54)
[2019-12-12] MEDS: INSULIN GLARGINE SOLOSTAR 100 UNITS/ML 3 ML PEN SC SCH ×2 (09:24→20:06)
[2019-12-12] MEDS ORDERED: INSULIN HUMAN REGULAR PER UNIT 5 UNITS in SYRINGE 4.95 ML IV PRN (09:29)
[2019-12-12] MEDS ORDERED: LACTULOSE SYRUP 30 GM/45 ML UDP PO STA (10:00)
[2019-12-12] MEDS ORDERED: INSULIN HUMAN REGULAR PER UNIT 5 UNITS in SYRINGE 4.95 ML IV SCH (12:00)
[2019-12-12] MEDS ORDERED: SODIUM CHLORIDE 0.9% 1000ML 1,000 ML IV PRN (12:10)
[2019-12-12] MEDS ORDERED: HEPARIN SOD (PORCINE) 1000 UNIT/ML 10 ML VIAL IV ONE (12:10)
[2019-12-12 12:33] LABS: iSTAT Art Bld Gas pCO2 Correct 44 mmHg (35-46); iSTAT Art Bld Gas pH Corrected 7.275 (7.35-7.45); iSTAT Arterial Blood Gas HCO3 20 meg/L (19-24); iSTAT Arterial Blood Gas pCO2 43 mmHg (35-46); iSTAT Arterial Blood Gas pH 7.28 (7.35-7.45); iSTAT Arterial Blood Gas pO2 76 mmHg (80-95); iSTAT Arterial Blood Gas pO2 C 79; iSTAT Carbon Dioxide 22 mmol/L (24-31); iSTAT Hematocrit 29 % (42-52); iSTAT Hemoglobin 9.9 g/dl (14.0-18.0); iSTAT Potassium 5.1 mmol/L (3.3-5.0); iSTAT Site R Radial; iSTAT Sodium 130 mmol/L (135-144)
[2019-12-12] MEDS ORDERED: ALTEPLASE, RECOMBINANT 1 MG/ML 2ML VIAL INSTIL ONE (14:45)
[2019-12-12] MEDS: INSULIN HUMAN REGULAR PER UNIT 8 UNITS in SYRINGE 7.92 ML IV SCH ×3 (15:44→23:56)
[2019-12-12] MEDS ORDERED: INSULIN HUMAN REGULAR PER IV SCH (16:00)
[2019-12-12] MEDS: NOREPINEPHRINE BIT INJ 16 MG in DEXTROSE 5% 500 ML IV SCH (17:49)
[2019-12-12] MEDS: HEPARIN SOD (PORCINE) 1000 UNIT/ML 10 ML VIAL IV SCH (19:06)
[2019-12-12] MEDS ORDERED: INSULIN GLARGINE SOLOSTAR 100 UNITS/ML 3 ML PEN SC SCH (20:00)
[2019-12-12 22:24] LABS: ANCA Screen Negative (Negative); Anti Nuclear Antibody Screen NEGATIVE (NEGATIVE); Anti-Glom Basement Antibody <1.0 AI (<1.0); Complement C3 178 mg/dL (82-185); Complement Total(CH50) >60 U/mL (31-60); Hepatitis BE Antibody Nonreactive; Myeloperoxidase Ab <1.0 AI (<1.0); Proteinase-3 AB <1.0 AI (<1.0)
[2019-12-13] MEDS: INSULIN ASPART 100 UNITS/ML 3 ML PEN SQ SCH ×6 (00:01→20:17)
[2019-12-13] MEDS: HEPARIN SOD 5,000 UNIT/0.5 ML VIAL SQ SCH ×3 (04:17→20:16)
[2019-12-13] MEDS: INSULIN HUMAN REGULAR PER UNIT 8 UNITS in SYRINGE 7.92 ML IV SCH ×4 (04:23→15:40)
[2019-12-13 04:32] LABS: Basophils # (auto) 0.02 K/uL (0-0.2); Basophils % (auto) 0.1 %; Hematocrit (blood only) 32.8 % (42-52); Hemoglobin 10.9 g/dL (14.0-18.0); Immature Granulocytes # (auto) 0.89 K/uL (0.00-0.02); Immature Granulocytes % (auto) 4.7 %; Lymphocytes % (auto) 5.8 %; Mean Corpuscular Hemoglobin 29.9 pg (25-34); Mean Corpuscular Hgb Conc 33.2 g/dL (32-36); Mean Corpuscular Volume 89.9 fL (80-100); Mean Platelet Volume 8.6 fL (7.4-10.4); Monocytes # (auto) 1.01 K/uL (0.11-0.59); Monocytes % (auto) 5.4 %; Neutrophils # (auto) 15.84 K/uL (1.4-6.5); Nucleated RBC # (auto) 0.05 K/uL (0-0); Nucleated RBC % (auto) 0.3 %; Platelet Count 434 K/uL (130-400); RDW Coefficient of Variation 14.4 % (11.5-14.5); Red Blood Count 3.65 M/uL (4.7-6.1); White Blood Count 18.86 K/uL (4.8-10.8)
[2019-12-13 04:37] LABS: Base Excess ABG -6.2 mEq/L (-9-1.8); HCO3 ABG 20 mmol/L (19-24); Oxygen Saturation ABG 91.5 % (90-95); PCO2 ABG 40 mmHg (35-46); PO2 ABG 72 mmHg (80-95); pH ABG 7.31 (7.35-7.45)
[2019-12-13 04:38] LABS: Allen Test POS (Pos)
[2019-12-13 04:44] LABS: INR 1.7 (0.9-1.1); Prothrombin Time 17.5 Seconds (9.0-12.0)
[2019-12-13 05:01] LABS: Albumin Globulin Ratio 0.2 (0.9-2); Albumin Level 1.1 gm/dl (3.4-5.0); BUN Creatinine Ratio 19.1 (10-20); Bilirubin,Total 0.3 mg/dl (0.2-1); Creatinine Clr Calc Pharmacy 13.7 ml/min; Est GFR (Non-African American) 8.7; Globulin 5.7 gm/dl (2.5-4.0); Magnesium 3.3 mg/dl (1.8-2.4); Phosphorus 8.7 mg/dl (2.5-4.9); Potassium 4.9 mmol/L (3.5-5.1); Total Protein 6.8 gm/dl (6.4-8.2)
[2019-12-13 05:49] LABS: Beta-Hydroxybutyrate 2.47 mg/dl (0.2-2.81)
[2019-12-13] MEDS: PEPTAMEN INTENSE VHP 1.0 CAL 1,000 ML BAG OG SCH (05:58)
[2019-12-13] MEDS: fentaNYL DRIP 1,250 MCG/250 ML BAG IV SCH ×3 (06:09→10:28)
--- NOTE | 2019-12-13 07:40 | Critical Care Progress Note ---
Date of Service December 13, 2019 Assessment & Plan (1) ARDS (adult respiratory distress syndrome): Reason Critically Ill: 64-year-old male with acute hypoxic respiratory failure presumptively secondary to 2019 24-hour events: On 0.04 of levo fed, PEEP has gone down to 12 FiO2 so 60%. Still running high secondary to Solu-Medrol. Patient is getting IV pushes of insulin -- ARDS Continue with lung protective ventilation High PEEP, low tidal volume to keep Plateau < 30 with permissive hypercapnea if need be. Monitor ABGs Etiology quite unclear. Patient had bio fire x2 which has been negative along with influenza negative x2. Autoimmune work-up is also negative. Patient came in with hypoxic respiratory failure ARDS and shock now leading towards renal failure needing hemodialysis. Covid-19 negative from [facility] and [facility] labs which was sent at the day of presentation. Continue with droplet precaution as we are not sure of the etiology. --NSVT Keep potassium greater than 4, magnesium greater than 2, phosphorus greater than 3 Monitor Echo done 12/11/2019 shows good ejection fraction with no ventricular wall dyskinesia. --JACQUELINE now ESRD With hyperphosphatemia now needing hemodialysis Hemodialysis started on 12/08/2019 Nephrology on board Follow recommendations --Diabetes type 2 Continue with insulin sliding scale. Glycemic control as per pharmacy --Severe protein calorie malnutrition Albumin less than 0.9 Start trophic feeds --Prophylaxis Continue with Pepcid and heparin subcu --Prognosis guarded -- Lines: Left subclavian Central line, right femoral Shiley catheter Radial arterial line Endotracheal tube Doppler lower extremity negative for DVT bilaterally. Echo shows normal ejection fraction. Plan: In-N-Out: -200 in the last 24 hours ABG today ABG 7.31/40/72 on PEEP 15 FiO2 60%. PEEP was decreased to 12. Trophic feeds to be continued. Chest x-ray from today personally reviewed. No significant change from the x- ray 2 days ago. Weekly Solu-Medrol to 40 mg every 12 hours. Continue with IV pushes of insulin as needed. Will avoid IV insulin drip given the necessity of PPE every hour for blood glucose. Patient has no bowel movements at the time of presentation. He got a dose of lactulose yesterday we will give 1 more dose today. DC Rocephin. Continue with doxycycline and caspofungin for the time being. Fungitell is pending. Patient has having some issues with right-femoral Shiley catheter. Patient is getting dialysis on a daily basis but decreased creatinine and BUN is still going up. Elevation of the BUN has a component from giving him steroids. Case discussed with nephrology will put a new catheter on the left femoral tomorrow. Mrs. Hinkle was given a call today and was updated on the current condition of the patient. All the questions were answered in depth. Telephone consent was obtained regarding new femoral Shiley catheter to be placed on the left groin is the right one has noted good flow during dialysis. I have personally spent 57 minutes of critical care time in the direct management of this patient. This is a life/limb threatening event. This includes time spent evaluating patient, direct bedside care, chart review, placing orders, interpretation of diagnostic studies, discussion with consultants, patient, and family members, as well as other required patient management activities. This time is exclusive of all separately billable procedures, and teaching time and separate from and in addition to any other critical care service time. Please note the above document was generated using voice recognition software. It may contain grammatical, syntax or spelling errors. Admission and Anticipated Discharge Date Admission Date: December 05, 2019 Subjective Patient seen and examined at bedside. No acute distress. Patient was on midazolam 3 and fentanyl 50 at the time of examination. Patient is on Levophed 0.04 mics. Afebrile in the last 24 hours. Review of Systems Review of Systems: Unobtainable due to cognitive status and Unobtainable due to endotracheal tube Physical Exam Physical Exam: Constitutional: No acute distress, sedated HEENT: PERRLA Respiratory system: Decreased air entry bilaterally, mild crackles bilateral lower lobes, no wheeze, no rhonchi CVS: S1-S2 positive, no murmurs or gallops Abdomen: Soft, nontender, nondistended, positive bowel sounds x4 Extremities: +2 pulses bilaterally radialis/ dorsalis pedis, no cyanosis, positive edema bilateral lower extremity Neuro: Spontaneous occasional breaths over the vent, positive gag, positive corneal, grimaces Psych: Unable to assess G/U: No Kapoor Skin: no rashes, warm and dry Lymphatic: no cervical or axillary lymphadenopathy Results & Data Results & Data ([facility]) Vital Signs (Past 12 Hours) Vital Signs Temp Pulse Pulse Resp BP BP BP 12/13/19 04:55 36.3 C L 61 27 H 138/70 124/73 12/13/19 04:53 61 12/13/19 03:08 55 L 26 H 12/13/19 03:00 36.5 C 57 L 26 H 143/72 H 145/57 H 12/13/19 02:00 36.6 C 53 L 26 H 130/63 115/51 L 12/13/19 01:00 36.6 C 52 L 26 H 142/75 H 121/52 L 12/13/19 00:25 53 L 26 H 111/59 L 116/51 L 12/13/19 00:10 65 12/13/19 00:05 36.7 C 53 L 26 H 94/43 L 12/12/19 23:01 36.7 C 59 L 26 H 137/67 134/58 L 12/12/19 22:44 65 26 H 12/12/19 22:00 36.7 C 60 26 H 122/77 119/50 L 12/12/19 21:00 36.8 C 60 26 H 130/67 127/54 L 12/12/19 20:45 62 12/12/19 20:40 63 124/83 12/12/19 20:00 36.9 C 62 26 H 129/65 118/50 L Pulse Ox 12/13/19 04:55 88 L 12/13/19 04:53 12/13/19 03:08 91 12/13/19 03:00 91 12/13/19 02:00 91 12/13/19 01:00 91 12/13/19 00:25 90 12/13/19 00:10 12/13/19 00:05 88 L 12/12/19 23:01 91 12/12/19 22:44 93 12/12/19 22:00 93 12/12/19 21:00 91 12/12/19 20:45 12/12/19 20:40 12/12/19 20:00 90 12/13/19 04:18 12/13/19 04:18 Coding Level of Care Code Critical Care 1st 30-74 mins Diagnoses ARDS (adult respiratory distress syndrome) J80 Time Spent (min) 57
[2019-12-13] MEDS ORDERED: INSULIN GLARGINE SOLOSTAR 100 UNITS/ML 3 ML PEN SC SCH ×3 (08:00→20:00)
[2019-12-13] MEDS: methylPREDNISolone 60 MG in SYRINGE 0 ML IV SCH (08:07)
[2019-12-13] MEDS: CASPOFUNGIN 50 MG in SODIUM CHLORIDE 0.9% 250 ML IV SCH (08:07)
[2019-12-13] MEDS: DOCUSATE SODIUM SYRUP 100 MG/10 ML UDC NG SCH ×2 (08:07→20:18)
[2019-12-13] MEDS: FAMOTIDINE 20 MG in SYRINGE 3 ML IV SCH (08:08)
[2019-12-13] MEDS: DOXYCYCLINE HYCLATE 100 MG in DEXTROSE 5% 100 ML IV SCH (08:09)
[2019-12-13] MEDS: SENNA 8.8 MG/5 ML UDP NG SCH (08:09)
[2019-12-13] MEDS: cefTRIAXone SODIUM 2,000 MG in DEXTROSE 5% 50 ML IV SCH (08:10)
[2019-12-13] MEDS ORDERED: PHYTONADIONE 5 MG TAB PO STA (08:14)
[2019-12-13] MEDS: INSULIN GLARGINE SOLOSTAR 100 UNITS/ML 3 ML PEN SC SCH ×2 (08:40→20:17)
--- NOTE | 2019-12-13 08:52 | XRay Report ---
XR chest 1V portable CLINICAL HISTORY: Respiratory failure COMPARISON STUDY: 12/11/2019 FINDINGS: r there is an endotracheal tube 4 cm above the isra. There is a left subclavian central v enous catheter. There is a nasogastric tube with its tip in the stomach. The cardiac and mediastinal contours remain stable. There are persistent mixed bilateral interstitial and alveolar opacities,[a t race left pleural effusion cannot be excluded. IMPRESSION: Persistent bilateral pulmonary opacities, similar to the preceding study ACT 112: Negative or not required by law. Electronically signed by: Rob Honeycutt M.D. 12/13/2019 8:50 AM
[2019-12-13] MEDS: NOREPINEPHRINE BIT INJ 16 MG in DEXTROSE 5% 500 ML IV SCH (08:54)
[2019-12-13] MEDS: methylPREDNISolone 40 MG in SYRINGE 0 ML IV SCH ×2 (09:07→20:18)
[2019-12-13] MEDS ORDERED: LACTULOSE SYRUP 30 GM/45 ML UDP PO SCH (10:30)
[2019-12-13] MEDS ORDERED: LACTULOSE SYRUP 30 GM/45 ML UDP PO ONE (11:30)
--- NOTE | 2019-12-13 11:59 | Nephrology Progress Note ---
Date of Service December 13, 2019 Assessment & Plan (1) JACQUELINE (acute kidney injury): Clinically consistent with ischemic ATN. Creatinine was 1.4 mg/dL in January 2019 but there is nothing more recent available (this was verified with the records from the PCP - Dr. Jones). Anuric. Started hemodialysis December 07. Daily hemodialysis has been provided since Monday (12/08/19). A relatively even fluid balance has been appropriately maintained with IHD. Unfortunately, BUN/creatinine continue to rise. High catabolism + corticosteroids are contributing. Thankfully potassium is reasonable. Management of hyperglycemia should help control electrolytes. Volume status is controlled currently and obligatory intake is not excessive. There is no indication for dialysis today which will allow for a 24 hour monitoring period with the expectation that we may be able to further wean vasopressors and plan a more extended dialysis treatment tomorrow for additional UF and clearance. The right femoral catheter will need to be removed. Exit site is clean and the catheter has provided adequate blood flow but access pressures are increasing and we are approaching a reasonable time to make a site change. I discussed this with Dr. Toussaint and Dr. Carlisle this morning. Unfortunately, the patient remains relatively too unstable for permcath placement. Dr. Carlisle will plan on placing a new temporary catheter in the ICU tomorrow AM. Once a new catheter is placed, the existing R femoral catheter will be removed and dialysis will then be coordinated. Dr. Toussaint may then place a permcath next week when appropriate. Unfortunately, the patient's overall condition remains guarded. CPK continues trending down appropriately. Clinical course of rapid progression JACQUELINE argues against AIN or infiltrative diseases. There was no evidence of TMA. Renal US did not demonstrate obstruction. Urine microscopy demonstrated 2+ protein, microscopic hematuria, and pyuria. Urine culture negative. Serologic testing for GN including AAKASH, ANCA, anti GBM, and hepatitis B + C serologies were negative. C3 + C4 are normal. Medications are currently appropriately dosed for kidney dysfunction and IHD. No dosing adjustments required. I discussed the plan of care with Dr. Carlisle this morning. Plan of communication has been established for the ICU nurse and the cattyman will be in contact with the patient's family. Subjective Remains on FIO2 60% with PEEP 12. Levophed ~0.03 mcg/kg/min. Tolerated HD reasonably well yesterday. Net UF 1 L. Slightly positive fluid balance past 24 hours. Qb was adequate during treatment but access pressures high. Small amount of clotting noted but did not affect treatment or blood return. TTE reviewed demonstrating normal LV function with mild cLVH. No significant valvular heart diease. Normal IVC collapse. Review of Systems Review of Systems: Unobtainable due to endotracheal tube Physical Exam Physical Exam: Patient was not directly examined today due to COVID pandemic. Pertinent findings were discussed with ICU nurse and the cattyman. Results & Data Vital Signs (Past 12 Hours) Vital Signs Temp Pulse Pulse Resp BP BP Pulse Ox 12/13/19 10:20 36.1 C L 57 L 26 H 145/61 H 91 12/13/19 09:00 36.1 C L 76 26 H 149/76 H 91 12/13/19 08:00 56 L 12/13/19 07:05 56 L 26 H 90 12/13/19 04:55 36.3 C L 61 27 H 138/70 124/73 88 L 12/13/19 04:53 61 12/13/19 03:08 55 L 26 H 91 12/13/19 03:00 36.5 C 57 L 26 H 143/72 H 145/57 H 91 12/13/19 02:00 36.6 C 53 L 26 H 130/63 115/51 L 91 12/13/19 01:00 36.6 C 52 L 26 H 142/75 H 121/52 L 91 12/13/19 00:25 53 L 26 H 111/59 L 116/51 L 90 12/13/19 00:10 65 12/13/19 00:05 36.7 C 53 L 26 H 94/43 L 88 L Laboratory Results Laboratory Results - last 24 hr 12/09/19 12/12/19 12/12/19 04:00 09:20 12:00 WBC RBC Hgb POC Hgb Hct POC Hct MCV MCH MCHC RDW Std Deviation RDW Coeff of Josué Plt Count MPV Immature Gran % (Auto) Neut % (Auto) Lymph % (Auto) Cedar % (Auto) Eos % (Auto) Baso % (Auto) Immature Gran # (Auto) Neut # (Auto) Lymph # (Auto) Cedar # (Auto) Eos # (Auto) Baso # (Auto) Absolute Nucleated RBC Nucleated RBC % (auto) PT INR Sample Site POC pH POC pCO2 POC pO2 POC HCO3 POC Total CO2 POC Base Excess ABG pH ABG pH (Temp Correct) ABG pCO2 ABG pCO2 (Temp Corrct ABG pO2 POC ABG pO2 at Pt Temp ABG HCO3 POC ABG O2 Sat ABG O2 Saturation ABG Base Excess Garett Test Barometric Pressure Oxygen Given O2 Delivery Device POC O2 Rate Minute Ventilation Tidal Volume PEEP POC Sodium Sodium POC Potassium Potassium Chloride Carbon Dioxide Anion Gap BUN Creatinine Est Cr Clr Drug Dosing Est GFR ( Amer) Est GFR (Non-Af Amer) BUN/Creatinine Ratio Glucose POC Glucose (other) 305 H Lactate 1.3 Calcium Phosphorus Magnesium Total Bilirubin AST ALT Alkaline Phosphatase Total Creatine Kinase Total Protein Albumin Globulin Albumin/Globulin Ratio Beta-Hydroxybutyric Acd AAKASH Screen NEGATIVE Anti-Proteinase 3 <1.0 Anti-Myeloperoxidase <1.0 ANCA Negative Glomerular Base Memb Ab <1.0 Complement C3 178 Complement C4 60 H Tot Complement (CH50) >60 H Hepatitis Be Antibody Nonreactive 12/12/19 12/12/19 12/12/19 12:00 12:08 15:43 WBC RBC Hgb POC Hgb 9.9 L Hct POC Hct 29 L MCV MCH MCHC RDW Std Deviation RDW Coeff of Josué Plt Count MPV Immature Gran % (Auto) Neut % (Auto) Lymph % (Auto) Cedar % (Auto) Eos % (Auto) Baso % (Auto) Immature Gran # (Auto) Neut # (Auto) Lymph # (Auto) Cedar # (Auto) Eos # (Auto) Baso # (Auto) Absolute Nucleated RBC Nucleated RBC % (auto) PT INR Sample Site R Radial POC pH 7.28 L POC pCO2 43 POC pO2 76 L POC HCO3 20 POC Total CO2 22 L POC Base Excess -6.0 ABG pH ABG pH (Temp Correct) 7.275 L ABG pCO2 ABG pCO2 (Temp Corrct 44 ABG pO2 POC ABG pO2 at Pt Temp 79 ABG HCO3 POC ABG O2 Sat 93.0 ABG O2 Saturation ABG Base Excess Garett Test NA Barometric Pressure Oxygen Given O2 Delivery Device Ventilator POC O2 Rate 26 Minute Ventilation 12.3 Tidal Volume 480 PEEP 15 POC Sodium 130 L Sodium POC Potassium 5.1 H Potassium Chloride Carbon Dioxide Anion Gap BUN Creatinine Est Cr Clr Drug Dosing Est GFR ( Amer) Est GFR (Non-Af Amer) BUN/Creatinine Ratio Glucose POC Glucose (other) 316 H 302 H Lactate Calcium Phosphorus Magnesium Total Bilirubin AST ALT Alkaline Phosphatase Total Creatine Kinase Total Protein Albumin Globulin Albumin/Globulin Ratio Beta-Hydroxybutyric Acd AAKASH Screen Anti-Proteinase 3 Anti-Myeloperoxidase ANCA Glomerular Base Memb Ab Complement C3 Complement C4 Tot Complement (CH50) Hepatitis Be Antibody 12/12/19 12/13/19 12/13/19 20:03 00:00 04:18 WBC 18.86 H RBC 3.65 L Hgb 10.9 L POC Hgb Hct 32.8 L POC Hct MCV 89.9 MCH 29.9 MCHC 33.2 RDW Std Deviation 48.0 H RDW Coeff of Josué 14.4 Plt Count 434 H MPV 8.6 Immature Gran % (Auto) 4.7 Neut % (Auto) 84.0 Lymph % (Auto) 5.8 Cedar % (Auto) 5.4 Eos % (Auto) 0.0 Baso % (Auto) 0.1 Immature Gran # (Auto) 0.89 H Neut # (Auto) 15.84 H Lymph # (Auto) 1.10 L Cedar # (Auto) 1.01 H Eos # (Auto) 0.00 Baso # (Auto) 0.02 Absolute Nucleated RBC 0.05 H Nucleated RBC % (auto) 0.3 PT INR Sample Site POC pH POC pCO2 POC pO2 POC HCO3 POC Total CO2 POC Base Excess ABG pH ABG pH (Temp Correct) ABG pCO2 ABG pCO2 (Temp Corrct ABG pO2 POC ABG pO2 at Pt Temp ABG HCO3 POC ABG O2 Sat ABG O2 Saturation ABG Base Excess Garett Test Barometric Pressure Oxygen Given O2 Delivery Device POC O2 Rate Minute Ventilation Tidal Volume PEEP POC Sodium Sodium POC Potassium Potassium Chloride Carbon Dioxide Anion Gap BUN Creatinine Est Cr Clr Drug Dosing Est GFR ( Amer) Est GFR (Non-Af Amer) BUN/Creatinine Ratio Glucose POC Glucose (other) 249 H 271 H Lactate Calcium Phosphorus Magnesium Total Bilirubin AST ALT Alkaline Phosphatase Total Creatine Kinase Total Protein Albumin Globulin Albumin/Globulin Ratio Beta-Hydroxybutyric Acd AAKASH Screen Anti-Proteinase 3 Anti-Myeloperoxidase ANCA Glomerular Base Memb Ab Complement C3 Complement C4 Tot Complement (CH50) Hepatitis Be Antibody 12/13/19 12/13/19 12/13/19 04:18 04:18 04:18 WBC RBC Hgb POC Hgb Hct POC Hct MCV MCH MCHC RDW Std Deviation RDW Coeff of Josué Plt Count MPV Immature Gran % (Auto) Neut % (Auto) Lymph % (Auto) Cedar % (Auto) Eos % (Auto) Baso % (Auto) Immature Gran # (Auto) Neut # (Auto) Lymph # (Auto) Cedar # (Auto) Eos # (Auto) Baso # (Auto) Absolute Nucleated RBC Nucleated RBC % (auto) PT 17.5 H INR 1.7 H Sample Site POC pH POC pCO2 POC pO2 POC HCO3 POC Total CO2 POC Base Excess ABG pH 7.31 L ABG pH (Temp Correct) ABG pCO2 40 ABG pCO2 (Temp Corrct ABG pO2 72 L POC ABG pO2 at Pt Temp ABG HCO3 20 POC ABG O2 Sat ABG O2 Saturation 91.5 ABG Base Excess -6.2 Garett Test POS Barometric Pressure 719.2 Oxygen Given 60 O2 Delivery Device POC O2 Rate Minute Ventilation Tidal Volume PEEP POC Sodium Sodium 131 L POC Potassium Potassium 4.9 Chloride 100 Carbon Dioxide 21 Anion Gap 10.0 BUN 117 H Creatinine 6.17 H* D Est Cr Clr Drug Dosing 13.7 Est GFR ( Amer) 10.0 Est GFR (Non-Af Amer) 8.7 BUN/Creatinine Ratio 19.1 Glucose 303 H* POC Glucose (other) Lactate Calcium 9.0 Phosphorus 8.7 H Magnesium 3.3 H Total Bilirubin 0.3 AST 56 H ALT 51 Alkaline Phosphatase 101 Total Creatine Kinase 461 H Total Protein 6.8 Albumin 1.1 L Globulin 5.7 H Albumin/Globulin Ratio 0.2 L Beta-Hydroxybutyric Acd 2.47 AAKASH Screen Anti-Proteinase 3 Anti-Myeloperoxidase ANCA Glomerular Base Memb Ab Complement C3 Complement C4 Tot Complement (CH50) Hepatitis Be Antibody 12/13/19 04:22 WBC RBC Hgb POC Hgb Hct POC Hct MCV MCH MCHC RDW Std Deviation RDW Coeff of Josué Plt Count MPV Immature Gran % (Auto) Neut % (Auto) Lymph % (Auto) Cedar % (Auto) Eos % (Auto) Baso % (Auto) Immature Gran # (Auto) Neut # (Auto) Lymph # (Auto) Cedar # (Auto) Eos # (Auto) Baso # (Auto) Absolute Nucleated RBC Nucleated RBC % (auto) PT INR Sample Site POC pH POC pCO2 POC pO2 POC HCO3 POC Total CO2 POC Base Excess ABG pH ABG pH (Temp Correct) ABG pCO2 ABG pCO2 (Temp Corrct ABG pO2 POC ABG pO2 at Pt Temp ABG HCO3 POC ABG O2 Sat ABG O2 Saturation ABG Base Excess Garett Test Barometric Pressure Oxygen Given O2 Delivery Device POC O2 Rate Minute Ventilation Tidal Volume PEEP POC Sodium Sodium POC Potassium Potassium Chloride Carbon Dioxide Anion Gap BUN Creatinine Est Cr Clr Drug Dosing Est GFR ( Amer) Est GFR (Non-Af Amer) BUN/Creatinine Ratio Glucose POC Glucose (other) 292 H Lactate Calcium Phosphorus Magnesium Total Bilirubin AST ALT Alkaline Phosphatase Total Creatine Kinase Total Protein Albumin Globulin Albumin/Globulin Ratio Beta-Hydroxybutyric Acd AAKASH Screen Anti-Proteinase 3 Anti-Myeloperoxidase ANCA Glomerular Base Memb Ab Complement C3 Complement C4 Tot Complement (CH50) Hepatitis Be Antibody PG Care Time/CCT Total # of Minutes Spent Total Time Spent with Patient: Total time spent is greater than 50% in coordination of care (as documented) at patient's floor/unit and/or counseling patient: Coding Level of Care Code 96341 Subseq Hosp Care Lvl 3 Diagnoses JACQUELINE (acute kidney injury) N17.9
--- NOTE | 2019-12-13 14:07 | Pharmacy Report ---
Pharmacy Glycemic Short Note 2 - Date of Service December 13, 2019 - Glycemic Short BSG Results (Last 24 hours): 12/12/19 12/12/19 12/13/19 15:43 20:03 00:00 Glucose POC Glucose (other) 302 H 249 H 271 H 12/13/19 12/13/19 04:18 04:22 Glucose 303 H* POC Glucose (other) 292 H OUTPATIENT ANTIDIABETIC REGIMEN: Per med rec: * Lantus 54 units SQ qPM * Glimepiride, linagliptin, and metformin * A1c = 9.4% 12/06/19 ASSESSMENT: * 64 yo male admitted to the ICU for ARDS, COVID-19 testing NEGATIVE, although still suspicion for COVID-19 infection * Pt is requiring pressor support with levophed and maintained on fentanyl and versed via continuous infusion. Temporary dialysis cath placed to maintain fluid balance in the setting of oliguric JACQUELINE with ATN. * PMH significant for T2DM, tobacco use, COPD, ASA and obesity 12/12: * Patient received 179 units of insulin yesterday, BSGs have ranged in the upper 200s, low 300s- seem to be holding at this level * Trophic TFs continue, steroids were decreased from methylpred 60 mg q12 to 40 mg q12 * Provider would like to continue with IV boluses every 4 hours in addition to SQ basal/bolus rather than initiating insulin drip, therefore will continue to increase lantus, tighten correction factor, ? absorption issues with levophed * Patient will not receive HD today, will need to monitor K with IV insulin administration, continue to monitor, reviewed dextrose containing medications, switched doxycycline to NS diluent, new norepinephrine bag just hung but can consider switching to NS (concentration up to 16 mcg/mL) with next bag change 12/11: * Patient received 137 units of insulin yesterday (80 basal, 57 bolus). BSGs continue to uptrend, despite aggressive increases in insulin * Trophic TFs continue and IV steroids were started yesterday (likely to co ntinue with an eventual taper) * Discussed with the provider and nurse and ideally an insulin infusion would be initiated, but given significant logistical considerations, we will continue SQ basal/bolus and add q4 hour IV regular insulin boluses. Will continue to monitor this and make adjustments as needed. Will utilize a weight based stress of three lantus dose. This may need to be increased further, but will wait to see effects of IV regular insulin boluses. Will further tighten novolog correction factor. 12/10: * Patient received 61 units of insulin yesterday (37 basal, 24 bolus). Insulin requirements increasing, BSGs trending upward into the 200s. * Patient also starting methylpred 60 mg q12H, will attempt to avoid insulin infusion but if BSGs further increased may need to start * Patients receiving steroids equivalent to prednisone 40 mg daily and above typically require an additional 0.4 units/kg of insulin in addition to basal needed, however, will be conservative and increase total possible lantus dose to ~.25 units/kg above home regimen. * AM BSG 207, still on trophic tube feeds. Tighten correction factor for now. 12/08: * Patient received a total of 29 units of insulin yesterday (25 basal, 4 bolus). Still requiring much less than home needs indicate. Will monitor. * BSGs well controlled today * Patient was started on trophic tube feeds. I don't anticipate this effecting BSGs too much, until rate/diet is advanced, will defer carb coverage for now. 12/07 * Since the time of admission, patient has been given two doses of Lantus (20 units on 4/2 PM and 15 units on 4/4 PM). Fasting BSG of 184 mg/dL this am. I would have expected this to be higher based on home dose of Lantus. * will schedule Lantus q12 based on BSG scale * Add Novolog coverage q4h - will utilize stress of 3 dosing due to above stressors and critical illness PLAN FOR INPATIENT GLYCEMIC CONTROL: * Hold outpatient oral diabetes medications * Basal insulin * Lantus 45 units this morning, scale for PM 35 units if <250 mg/dL, 45 if >250 mg/dL * Bolus insulin * NovoLog per scale ACHS or Q6hrs while NPO * Goal Range: Low 110 mg/dL - High 140 mg/dL * Correction Factor: 8 mg/dL/unit (was 12 mg/dL/unit for 0000,0400,1200) * Nutritional / Prandial insulin--will hold off while TFs are trophic, plan on per carb ratio of 1 unit per 6 grams CHO consumed once TFs advanced * Regular insulin: 5 units IVP q4h scheduled (Hold for BSG < 220 or potassium < 4) X 2. This was increased to 8 units IVP q4h scheduled @1600 with the same hold parameters. PLAN FOR DISCHARGE: * pending
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
[2019-12-13 16:49] LABS: Fungitell (1-3)-B-D-Glucan <31
--- NOTE | 2019-12-13 17:16 | Pharmacy Report ---
Pharmacy Glycemic Short Note 2 - Date of Service December 12, 2019 - Glycemic Short BSG Results (Last 24 hours): 12/10/19 12/11/19 12/11/19 23:13 04:52 13:15 Glucose POC Glucose (other) 252 H 218 H 204 H 12/11/19 12/11/19 12/11/19 15:24 20:39 23:50 Glucose POC Glucose (other) 231 H 311 H 296 H 12/12/19 12/12/19 04:21 04:27 Glucose 306 H* POC Glucose (other) 290 H OUTPATIENT ANTIDIABETIC REGIMEN: Per med rec: * Lantus 54 units SQ qPM * Glimepiride, linagliptin, and metformin * A1c = 9.4% 12/06/19 ASSESSMENT: * 64 yo male admitted to the ICU for ARDS, COVID-19 testing NEGATIVE, although still suspicion for COVID-19 infection * Pt is requiring pressor support with levophed and maintained on fentanyl and versed via continuous infusion. Temporary dialysis cath placed to maintain fluid balance in the setting of oliguric JACQUELINE with ATN. * PMH significant for T2DM, tobacco use, COPD, ASA and obesity 12/11: * Patient received 137 units of insulin yesterday (80 basal, 57 bolus). BSGs continue to uptrend, despite aggressive increases in insulin * Trophic TFs continue and IV steroids were started yesterday (likely to continue with an eventual taper) * Discussed with the provider and nurse and ideally an insulin infusion would be initiated, but given significant logistical considerations, we will continue SQ basal/bolus and add q4 hour IV regular insulin boluses. Will continue to monitor this and make adjustments as needed. Will utilize a weight based stress of three lantus dose. This may need to be increased further, but will wait to see effects of IV regular insulin boluses. Will further tighten novolog correction factor. 12/10: * Patient received 61 units of insulin yesterday (37 basal, 24 bolus). Insulin requirements increasing, BSGs trending upward into the 200s. * Patient also starting methylpred 60 mg q12H, will attempt to avoid insulin infusion but if BSGs further increased may need to start * Patients receiving steroids equivalent to prednisone 40 mg daily and above typically require an additional 0.4 units/kg of insulin in addition to basal needed, however, will be conservative and increase total possible lantus dose to ~.25 units/kg above home regimen. * AM BSG 207, still on trophic tube feeds. Tighten correction factor for now. 12/08: * Patient received a total of 29 units of insulin yesterday (25 basal, 4 bolus). Still requiring much less than home needs indicate. Will monitor. * BSGs well controlled today * Patient was started on trophic tube feeds. I don't anticipate this effecting BSGs too much, until rate/diet is advanced, will defer carb coverage for now. 12/07 * Since the time of admission, patient has been given two doses of Lantus (20 units on 4/2 PM and 15 units on 4/4 PM). Fasting BSG of 184 mg/dL this am. I would have expected this to be higher based on home dose of Lantus. * will schedule Lantus q12 based on BSG scale * Add Novolog coverage q4h - will utilize stress of 3 dosing due to above stressors and critical illness PLAN FOR INPATIENT GLYCEMIC CONTROL: * Hold outpatient oral diabetes medications * Basal insulin * Lantus 30 units BID * Bolus insulin * NovoLog per scale ACHS or Q6hrs while NPO * Goal Range: Low 110 mg/dL - High 140 mg/dL * Correction Factor: 9 mg/dL/unit (was 12 mg/dL/unit for 0000,0400,1200) * Nutritional / Prandial insulin--will hold off while TFs are trophic, plan on per carb ratio of 1 unit per 6 grams CHO consumed once TFs advanced * Regular insulin: 5 units IVP q4h scheduled (Hold for BSG < 220 or potassium < 4) X 2. This was increased to 8 units IVP q4h scheduled @1600 with the same hold parameters. PLAN FOR DISCHARGE: * pending
--- NOTE | 2019-12-13 17:17 | Nephrology Progress Note ---
Date of Service December 12, 2019 Assessment & Plan (1) JACQUELINE (acute kidney injury): Clinically consistent with ischemic ATN. Baseline creatinine in 2019 was 1.4 mg/dL. Remains oligoanuric. Daily hemodialysis has been provided since Monday. Tolerating UF well to maintain a relatively even fluid balance at this time. Unfortunately, BUN/Cr continued to rise with an associated mild hyperkalemia. After starting corticosteroid therapy yesterday, hyperglycemia also noted which is certainly contributing to other metabolic abnormalities. CPK is trending down. Unfortunately, the patient remains in critical condition with a guarded prognosis. Appropriate supportive medical therapy is being provided and antifungal coverage has been added. HD orders have been placed for an abridged treatment today to provide additional clearance. Assuming we can obtain appropriate clearance and improve metabolic abnormalities, I would like to provide a 24 hour off dialysis window and monitor while also considering a potential line holiday and removing the femoral catheter once appropriate. Unfortunately, due to the patient's unstable status, it is unclear when this may be appropriate. Femoral HD catheter was placed by the head bellhop captain on 12/08/19. Catheter has been functioning well but had some signs of clotting yesterday at the end of treatment which also needs to be re-evaluated. Renal US did not demonstrate obstruction. Urine microscopy demonstrated 2+ protein, microscopic hematuria, and pyuria. Urine culture negative. Serologic testing for GN has been sent, results are pending. Medications are currently appropriately dosed for kidney dysfunction and IHD. No dosing adjustments required. I discussed the plan of care with Wyatt Jeff PA-C this morning. He stated that he will be in contact with the patient's family. Subjective Patient remains critically ill. Levophed gtt was weaned to 0.03 mg/kg/min this AM. Remains on ventilator support with FIO2 60% and PEEP 15. Anuric. Tolerated HD yesterday, net UF 2L. Femoral catheter functioning reasonably well but Qb slightly low at end of treatment. Review of Systems Review of Systems: Unobtainable due to endotracheal tube Physical Exam Physical Exam: Exam deferred due to COVID 19 pandemic Results & Data Vital Signs (Past 12 Hours) Vital Signs Temp Pulse Pulse Resp BP BP Pulse Ox 12/12/19 11:30 110/45 L 12/12/19 11:00 37.4 C 59 L 26 H 132/64 116/46 L 90 12/12/19 10:30 37.4 C 59 L 26 H 111/45 L 92 12/12/19 10:00 37.4 C 59 L 26 H 121/58 L 104/42 L 92 12/12/19 09:30 37.5 C 60 26 H 117/50 L 112/49 L 92 12/12/19 09:00 37.5 C 59 L 26 H 134/70 93 12/12/19 08:00 37.5 C 59 L 26 H 141/54 H 137/63 93 12/12/19 07:53 28 H 12/12/19 06:26 37.7 C H 60 27 H 135/66 136/52 L 93 12/12/19 05:54 60 26 H 93 12/12/19 05:31 37.8 C H 60 25 H 136/67 133/52 L 92 12/12/19 04:30 37.9 C H 92 H 24 120/70 92 12/12/19 03:30 38.0 C H 62 26 H 139/69 121/53 L 93 12/12/19 03:27 61 25 H 93 12/12/19 02:30 38.1 C H 62 26 H 124/66 115/51 L 93 12/12/19 01:24 38 C H 62 24 128/63 113/51 L 93 12/12/19 00:30 38.0 C H 64 24 130/64 93 Laboratory Results Laboratory Results - last 24 hr 12/10/19 12/11/19 12/11/19 23:13 04:52 13:15 WBC RBC Hgb Hct MCV MCH MCHC RDW Std Deviation RDW Coeff of Josué Plt Count MPV Immature Gran % (Auto) Neut % (Auto) Lymph % (Auto) [place] % (Auto) Eos % (Auto) Baso % (Auto) Immature Gran # (Auto) Neut # (Auto) Lymph # (Auto) [place] # (Auto) Eos # (Auto) Baso # (Auto) Absolute Nucleated RBC Nucleated RBC % (auto) PT INR Sample Site POC pH POC pCO2 POC pO2 POC HCO3 POC Total CO2 POC Base Excess POC ABG O2 Sat Garett Test O2 Delivery Device POC O2 Rate Minute Ventilation Tidal Volume PEEP Sodium Potassium Chloride Carbon Dioxide Anion Gap BUN Creatinine Est Cr Clr Drug Dosing Est GFR ( Amer) Est GFR (Non-Af Amer) BUN/Creatinine Ratio Glucose POC Glucose (other) 252 H 218 H 204 H Lactate Calcium Phosphorus Magnesium Total Bilirubin Direct Bilirubin AST ALT Alkaline Phosphatase Total Creatine Kinase Total Protein Albumin Beta-Hydroxybutyric Acd 12/11/19 12/11/19 12/11/19 15:24 20:39 23:50 WBC RBC Hgb Hct MCV MCH MCHC RDW Std Deviation RDW Coeff of Josué Plt Count MPV Immature Gran % (Auto) Neut % (Auto) Lymph % (Auto) [place] % (Auto) Eos % (Auto) Baso % (Auto) Immature Gran # (Auto) Neut # (Auto) Lymph # (Auto) [place] # (Auto) Eos # (Auto) Baso # (Auto) Absolute Nucleated RBC Nucleated RBC % (auto) PT INR Sample Site POC pH POC pCO2 POC pO2 POC HCO3 POC Total CO2 POC Base Excess POC ABG O2 Sat Garett Test O2 Delivery Device POC O2 Rate Minute Ventilation Tidal Volume PEEP Sodium Potassium Chloride Carbon Dioxide Anion Gap BUN Creatinine Est Cr Clr Drug Dosing Est GFR ( Amer) Est GFR (Non-Af Amer) BUN/Creatinine Ratio Glucose POC Glucose (other) 231 H 311 H 296 H Lactate Calcium Phosphorus Magnesium Total Bilirubin Direct Bilirubin AST ALT Alkaline Phosphatase Total Creatine Kinase Total Protein Albumin Beta-Hydroxybutyric Acd 12/12/19 12/12/19 12/12/19 04:21 04:27 04:27 WBC 13.45 H RBC 3.64 L Hgb 10.4 L Hct 32.6 L MCV 89.6 MCH 28.6 MCHC 31.9 L RDW Std Deviation 48.3 H RDW Coeff of Josué 14.7 H Plt Count 397 MPV 8.8 Immature Gran % (Auto) 5.7 Neut % (Auto) 84.9 Lymph % (Auto) 5.4 [place] % (Auto) 3.9 Eos % (Auto) 0.0 Baso % (Auto) 0.1 Immature Gran # (Auto) 0.76 H Neut # (Auto) 11.42 H Lymph # (Auto) 0.73 L [place] # (Auto) 0.52 Eos # (Auto) 0.00 Baso # (Auto) 0.02 Absolute Nucleated RBC 0.03 H Nucleated RBC % (auto) 0.3 PT INR Sample Site POC pH POC pCO2 POC pO2 POC HCO3 POC Total CO2 POC Base Excess POC ABG O2 Sat Garett Test O2 Delivery Device POC O2 Rate Minute Ventilation Tidal Volume PEEP Sodium 131 L Potassium 5.5 H D Chloride 99 Carbon Dioxide 22 Anion Gap 10.0 BUN 100 H Creatinine 5.73 H* D Est Cr Clr Drug Dosing 14.9 Est GFR ( Amer) 11.0 Est GFR (Non-Af Amer) 9.5 BUN/Creatinine Ratio 17.4 Glucose 306 H* POC Glucose (other) 290 H Lactate Calcium 9.0 Phosphorus 7.5 H Magnesium 3.2 H Total Bilirubin 0.3 Direct Bilirubin 0.1 AST 52 H ALT 35 Alkaline Phosphatase 100 Total Creatine Kinase 906 H Total Protein 7.2 Albumin 1.0 L Beta-Hydroxybutyric Acd 1.50 12/12/19 12/12/19 12/12/19 04:27 05:54 12:00 WBC RBC Hgb Hct MCV MCH MCHC RDW Std Deviation RDW Coeff of Josué Plt Count MPV Immature Gran % (Auto) Neut % (Auto) Lymph % (Auto) [place] % (Auto) Eos % (Auto) Baso % (Auto) Immature Gran # (Auto) Neut # (Auto) Lymph # (Auto) [place] # (Auto) Eos # (Auto) Baso # (Auto) Absolute Nucleated RBC Nucleated RBC % (auto) PT 16.7 H INR 1.6 H Sample Site Art Line POC pH 7.29 L POC pCO2 45 POC pO2 84 POC HCO3 22 POC Total CO2 23 L POC Base Excess -5.0 POC ABG O2 Sat 95.0 Garett Test NA O2 Delivery Device Ventilator POC O2 Rate 24 Minute Ventilation 12.0 Tidal Volume 480 PEEP 15 Sodium Potassium Chloride Carbon Dioxide Anion Gap BUN Creatinine Est Cr Clr Drug Dosing Est GFR ( Amer) Est GFR (Non-Af Amer) BUN/Creatinine Ratio Glucose POC Glucose (other) Lactate Pending Calcium Phosphorus Magnesium Total Bilirubin Direct Bilirubin AST ALT Alkaline Phosphatase Total Creatine Kinase Total Protein Albumin Beta-Hydroxybutyric Acd PG Care Time/CCT Total # of Minutes Spent Total Time Spent with Patient: Total time spent is greater than 50% in coordination of care (as documented) at patient's floor/unit and/or counseling patient: Coding Level of Care Code 85253 Subseq Hosp Care Lvl 3 Diagnoses JACQUELINE (acute kidney injury) N17.9
--- NOTE | 2019-12-13 17:19 | Hospitalist Progress Note ---
Date of Service December 12, 2019 Assessment & Plan (1) Acute respiratory failure with hypoxia: Admitted to ICU. B/l pneumonia on chest x-ray, CXR with bilat peripheral infiltrates, slightly improved on chest x-ray from 12/10 Clinical picture highly concerning for COVID-19 (normal wbc count, lymphopenia, elevated AST,elevated LDH, elevated d-dimer, cxr findings, etc). Although two nasopharyngeal tests have come back negative for CoVid-19 Profoundly hypoxic upon presentation intubated in ED, early intubation-continues on vent, not ready yet for extubation- ABG this morning was 7.29/40 5 on FiO2 50% with PEEP of 15 which is improved Defer vent management to Biomedical Specialist COVID negative as of 12/07 from [facility], and [facility] COVID test now also negative from 12/04 was in prone position 12/04 for 16 hours, now supine again Continues to be with a very guarded prognosis with worsening renal function requiring hemodialysis and high temperatures continuing, worsening pulmonary status, continued need for mechanical ventilation (2) ARDS (adult respiratory distress syndrome): as above, secondary to likely COVID -started trial of IV steroids on 12/10-continue (3) Suspected 2019 novel coronavirus infection: see above in "acute hypoxic resp failure" biofire negative x 2 flu negative COVID - negative on 12/07 from [facility] and also now on [facility] COVID test -Continue to highly suspect COVID-19--> continue droplet and contact precautions -pulmonary/critical care team has decided not to repeat tracheal aspirate sample for coated 19 testing as it would not change management expert at this time -He continues to be back on airborne precautions as well as continue droplet and contact precautions (4) Sepsis: Secondary to pneumonia high concern of COVID-19 as above -continue supportive care (5) Bilateral pneumonia: see above blood cx's NGTD Sputum cx no growth Legionella urine antigen negative broad spectrum antibiotics continue with Rocephin and doxy -Continues on IV Caspofungin empirically (6) Acute renal failure (ARF): Secondary to dehydration/sepsis/ATN Normosol hydration given initially Is anuric, creatinine worsening daily despite ultrafiltration, with hyperkalemia today which improved with insulin alone Now continues on hemodialysis, started 12/07, has SHiley catheter in rt femoral -continue to HOLD MIKAEL and HCTZ -avoid NSAIDs -AAKASH, ANCA, immunological workup still pending Appreciate nephrology consultation for hemodialysis management of renal failure -Follow BMP in the morning -Follow urine output (7) Chronic obstructive pulmonary disease: by history, but not on inhalers at home. (8) Current smoker: 50+ years of smoking per patient (9) Gastroesophageal reflux disease: Pepcid protocol per ICU (10) Gout: no recent issues not on prophylaxis (11) Obstructive sleep apnea: noted (12) Hyperlipidemia: hold STATIN-however would consider restarting this as it can have some anti-inflammatory effect anecdotally in the setting of a massive inflammatory state (13) Hypertension: HOLDING anti-hypertensives (HCTZ, MIKAEL, norvasc, etc) for hypotension--> still requiring levophed (14) Diabetes mellitus type II, uncontrolled: hyperglycemic ICU protocol, hyperglycemia is worsened with starting IV steroids-pharmacy has intensified the insulin regimen defer to pharmacy (15) Hypokalemia: resolved (16) Hyponatremia: likely due to dehydration/volume depletion and chronic HCTZ use on admission, but now is likely due to volume overload from renal failure -To be managed with dialysis (17) Metabolic encephalopathy: multifactorial - sepsis, pneumonia, possible COVID-19, hyponatremia, hypoxia, etc supportive care (18) Rhabdomyolysis: CPK elevated at 2449 and now down to 906 Likely secondary to sepsis/infection -follow CPK (19) DVT prophylaxis: SQ Heparin FEN-patient on tube feeds Dispo-remains in critical condition with very poor prognosis for recovery with multisystem organ failure FULL CODE Continued stay in ICU Admission and Anticipated Discharge Date Admission Date: December 05, 2019 Subjective Patient remains intubated and sedated. I discussed the case with the staff climate scientist. I also discussed the case with the patient's nurse. He remains on low-dose Levophed and was going to receive dialysis again today. He remains anuric. T-max 38.0 at 330 this morning Biomedical Specialist reports he had a small run of nonsustained V. tach again overnight Review of Systems Review of Systems: Unobtainable due to endotracheal tube Physical Exam Physical Exam: I observed the patient through the window, but deferred PE to Biomedical Specialist due to COVID 19 and limiting provider exposure Results & Data Results & Data ([facility]) Vital Signs (Past 12 Hours) Vital Signs Temp Pulse Pulse Resp BP BP Pulse Ox 12/12/19 16:19 79 26 H 90 12/12/19 16:00 37.3 C 61 26 H 119/62 101/45 L 91 12/12/19 15:00 37.3 C 57 L 26 H 117/56 L 103/45 L 90 12/12/19 14:30 37.3 C 57 L 27 H 105/46 L 90 12/12/19 14:00 37.3 C 57 L 26 H 117/59 L 111/47 L 90 12/12/19 13:30 104/46 L 12/12/19 13:00 37.4 C 57 L 26 H 113/56 L 105/46 L 90 12/12/19 12:43 100/45 L 12/12/19 12:36 102/45 L 12/12/19 12:27 27 H 88 L 12/12/19 12:25 59 L 101/45 L 12/12/19 12:00 37.4 C 59 L 27 H 129/64 113/50 L 88 L 12/12/19 11:30 110/45 L 12/12/19 11:00 37.4 C 59 L 26 H 132/64 116/46 L 90 12/12/19 10:30 37.4 C 59 L 26 H 111/45 L 92 12/12/19 10:00 37.4 C 59 L 26 H 121/58 L 104/42 L 92 12/12/19 09:30 37.5 C 60 26 H 117/50 L 112/49 L 92 12/12/19 09:00 37.5 C 59 L 26 H 134/70 93 12/12/19 08:00 37.5 C 59 L 26 H 141/54 H 137/63 93 12/12/19 07:53 28 H 12/12/19 06:26 37.7 C H 60 27 H 135/66 136/52 L 93 12/12/19 05:54 60 26 H 93 12/12/19 05:31 37.8 C H 60 25 H 136/67 133/52 L 92 PG Care Time/CCT Total # of Minutes Spent Total Time Spent with Patient: Total time spent is greater than 50% in coordination of care (as documented) at patient's floor/unit and/or counseling patient: Coding Level of Care Code None Diagnoses Acute respiratory failure with hypoxia J96.01 ARDS (adult respiratory distress syndrome) J80 Suspected 2019 novel coronavirus infection R68.89 Sepsis A41.9 Bilateral pneumonia J18.9 Lung location: lower lobe of lung Pneumonia type: due to unspecified organism Acute renal failure (ARF) N17.9 Acute renal failure type: unspecified Chronic obstructive pulmonary disease J44.9 Current smoker F17.200 Gastroesophageal reflux disease K21.9 Gout M10.9 Obstructive sleep apnea G47.33 Hyperlipidemia E78.5 Hypertension I10 Diabetes mellitus type II, uncontrolled E11.65 Hypokalemia E87.6 Hyponatremia E87.1 Metabolic encephalopathy G93.41 Rhabdomyolysis M62.82 DVT prophylaxis Z29.9 (1) Acute renal failure (ARF) Acute renal failure type: unspecified Qualified Code(s): N17.9 - Acute kidney failure, unspecified (2) Bilateral pneumonia Lung location: lower lobe of lung Pneumonia type: due to unspecified organism Qualified Code(s): J18.9 - Pneumonia, unspecified organism
--- NOTE | 2019-12-13 17:30 | Hospitalist Progress Note ---
Date of Service December 13, 2019 Assessment & Plan (1) Acute respiratory failure with hypoxia: Admitted to ICU. B/l pneumonia on chest x-ray, CXR with bilat peripheral infiltrates, slightly improved on chest x-ray from 12/10 Clinical picture highly concerning for COVID-19 (normal wbc count, lymphopenia, elevated AST,elevated LDH, elevated d-dimer, cxr findings, etc). Although two nasopharyngeal tests have come back negative for CoVid-19 Profoundly hypoxic upon presentation intubated in ED, early intubation-continues on vent, not ready yet for extubation- ABG this morning was 7.29/40 5 on FiO2 50% with PEEP of 15 which is improved Defer vent management to [employer] COVID negative as of 12/07 from [facility], and [facility] COVID test now also negative from 12/04 was in prone position 12/04 for 16 hours, now supine again Continues to be with a very guarded prognosis with worsening renal function requiring hemodialysis and high temperatures continuing, worsening pulmonary status, continued need for mechanical ventilation (2) ARDS (adult respiratory distress syndrome): as above, secondary to likely COVID -started trial of IV steroids on 12/10-continue (3) Suspected 2019 novel coronavirus infection: see above in "acute hypoxic resp failure" biofire negative x 2 flu negative COVID - negative on 12/07 from [facility] and also now on [facility] COVID test -Continue to highly suspect COVID-19--> continue droplet and contact precautions -pulmonary/critical care team has decided not to repeat tracheal aspirate sample for coated 19 testing 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 -He continues to be back on airborne precautions as well as continue droplet and contact precautions (4) Sepsis: Secondary to pneumonia high concern of COVID-19 as above -continue supportive care (5) Bilateral pneumonia: see above blood cx's NGTD Sputum cx no growth Legionella urine antigen negative broad spectrum antibiotics given with Rocephin and doxy-has now completed a course of rocehpin; doxy continues -Continues on IV Caspofungin empirically (6) Acute renal failure (ARF): Secondary to dehydration/sepsis/ATN Normosol hydration given initially Is anuric, creatinine worsening daily despite ultrafiltration, with hyperkalemia now resolved Now continues on hemodialysis, started 12/07, has SHiley catheter in rt femoral -continue to HOLD MIKAEL and HCTZ -avoid NSAIDs -AAKASH, ANCA, immunological workup still pending Appreciate nephrology consultation for hemodialysis management of renal failure -Follow BMP in the morning -Follow urine output (7) Chronic obstructive pulmonary disease: by history, but not on inhalers at home. (8) Current smoker: 50+ years of smoking per patient (9) Gastroesophageal reflux disease: Pepcid protocol per ICU (10) Gout: no recent issues not on prophylaxis (11) Obstructive sleep apnea: noted (12) Hyperlipidemia: hold STATIN-however would consider restarting this as it can have some anti-inflammatory effect anecdotally in the setting of a massive inflammatory state (13) Hypertension: HOLDING anti-hypertensives (HCTZ, MIKAEL, norvasc, etc) for hypotension--> still requiring levophed (14) Diabetes mellitus type II, uncontrolled: hyperglycemic ICU protocol, hyperglycemia is worsened with starting IV steroids-pharmacy has intensified the insulin regimen defer to pharmacy (15) Hypokalemia: resolved (16) Hyponatremia: likely due to dehydration/volume depletion and chronic HCTZ use on admission, but now is likely due to volume overload from renal failure -To be managed with dialysis (17) Metabolic encephalopathy: multifactorial - sepsis, pneumonia, possible COVID-19, hyponatremia, hypoxia, etc supportive care (18) Rhabdomyolysis: CPK elevated at 2449 and now down to 461 Likely secondary to sepsis/infection -follow CPK (19) DVT prophylaxis: SQ Heparin FEN-patient on tube feeds Dispo-remains in critical condition with very poor prognosis for recovery with multisystem organ failure FULL CODE Continued stay in ICU Admission and Anticipated Discharge Date Admission Date: December 05, 2019 Subjective Remains intubated and sedated. Weaning down off levophed. No HD planned for today. Anuric. Review of Systems Review of Systems: Unobtainable due to endotracheal tube Physical Exam Physical Exam: I observed the patient through the window, but deferred PE to [employer] due to COVID 19 and limiting provider exposure Results & Data Results & Data ([facility]) Vital Signs (Past 12 Hours) Vital Signs Temp Pulse Pulse Resp BP BP Pulse Ox 12/13/19 16:00 36.2 C L 56 L 26 H 105/52 L 91 12/13/19 15:45 55 L 26 H 91 12/13/19 15:00 36.3 C L 54 L 26 H 131/72 121/51 L 90 12/13/19 14:09 36.1 C L 54 L 26 H 128/57 L 92 12/13/19 13:00 36.6 C 55 L 26 H 125/69 117/49 L 91 12/13/19 12:00 36.3 C L 57 L 26 H 149/63 H 143/71 H 90 12/13/19 11:35 58 L 26 H 92 12/13/19 11:00 36.1 C L 59 L 26 H 141/63 H 143/70 H 90 12/13/19 10:20 36.1 C L 57 L 26 H 145/61 H 91 12/13/19 10:00 36.1 C L 58 L 26 H 89 L 12/13/19 09:00 36.1 C L 76 26 H 149/76 H 91 12/13/19 08:00 36.1 C L 56 L 57 L 26 H 150/60 H 148/73 H 90 12/13/19 07:05 56 L 26 H 90 12/13/19 07:00 36.7 C 56 L 26 H 154/77 H 155/61 H 88 L PG Care Time/CCT Total # of Minutes Spent Total Time Spent with Patient: Total time spent is greater than 50% in coordination of care (as documented) at patient's floor/unit and/or counseling patient: Coding Level of Care Code None Diagnoses Acute respiratory failure with hypoxia J96.01 ARDS (adult respiratory distress syndrome) J80 Suspected 2019 novel coronavirus infection R68.89 Sepsis A41.9 Bilateral pneumonia J18.9 Lung location: lower lobe of lung Pneumonia type: due to unspecified organism Acute renal failure (ARF) N17.9 Acute renal failure type: unspecified Chronic obstructive pulmonary disease J44.9 Current smoker F17.200 Gastroesophageal reflux disease K21.9 Gout M10.9 Obstructive sleep apnea G47.33 Hyperlipidemia E78.5 Hypertension I10 Diabetes mellitus type II, uncontrolled E11.65 Hypokalemia E87.6 Hyponatremia E87.1 Metabolic encephalopathy G93.41 Rhabdomyolysis M62.82 DVT prophylaxis Z29.9 (1) Acute renal failure (ARF) Acute renal failure type: unspecified Qualified Code(s): N17.9 - Acute kidney failure, unspecified (2) Bilateral pneumonia Lung location: lower lobe of lung Pneumonia type: due to unspecified organism Qualified Code(s): J18.9 - Pneumonia, unspecified organism
[2019-12-13] MEDS: INSULIN HUMAN REGULAR PER UNIT 10 UNITS in SYRINGE 9.9 ML IV SCH (20:17)
[2019-12-13] MEDS: DOXYCYCLINE HYCLATE 100 MG in 0.9 % SODIUM CHLORIDE 100 ML IV SCH (20:18)
[2019-12-14] MEDS: INSULIN HUMAN REGULAR PER UNIT 10 UNITS in SYRINGE 9.9 ML IV SCH ×3 (00:09→07:53)
[2019-12-14] MEDS: INSULIN ASPART 100 UNITS/ML 3 ML PEN SQ SCH ×6 (00:10→19:53)
[2019-12-14 03:47] LABS: iSTAT Arterial Blood Gas HCO3 17 meg/L (19-24); iSTAT Arterial Blood Gas pCO2 36 mmHg (35-46); iSTAT Arterial Blood Gas pH 7.29 (7.35-7.45); iSTAT Arterial Blood Gas pO2 125 mmHg (80-95); iSTAT Carbon Dioxide 18 mmol/L (24-31); iSTAT Site Art Line
[2019-12-14] MEDS: HEPARIN SOD 5,000 UNIT/0.5 ML VIAL SQ SCH ×3 (03:50→19:52)
[2019-12-14 04:27] LABS: Basophils # (auto) 0.01 K/uL (0-0.2); Basophils % (auto) 0.1 %; Hematocrit (blood only) 31.8 % (42-52); Hemoglobin 10.4 g/dL (14.0-18.0); Immature Granulocytes # (auto) 0.43 K/uL (0.00-0.02); Immature Granulocytes % (auto) 3.4 %; Lymphocytes # (auto) 0.61 K/uL (1.2-3.4); Lymphocytes % (auto) 4.9 %; Mean Corpuscular Hemoglobin 28.8 pg (25-34); Mean Corpuscular Hgb Conc 32.7 g/dL (32-36); Mean Corpuscular Volume 88.1 fL (80-100); Mean Platelet Volume 8.9 fL (7.4-10.4); Monocytes % (auto) 2.4 %; Neutrophils # (auto) 11.12 K/uL (1.4-6.5); Neutrophils % (auto) 89.2 %; Nucleated RBC # (auto) 0.06 K/uL (0-0); Nucleated RBC % (auto) 0.5 %; Platelet Count 345 K/uL (130-400); RDW Coefficient of Variation 13.9 % (11.5-14.5); RDW Standard Deviation 44.6 fL (36.4-46.3); Red Blood Count 3.61 M/uL (4.7-6.1); White Blood Count 12.47 K/uL (4.8-10.8)
[2019-12-14 04:31] LABS: Base Excess ABG -9.3 mEq/L (-9-1.8); HCO3 ABG 16 mmol/L (19-24); Oxygen Saturation ABG 94.2 % (90-95); PCO2 ABG 30 mmHg (35-46); PO2 ABG 80 mmHg (80-95); pH ABG 7.33 (7.35-7.45)
[2019-12-14 04:34] LABS: Allen Test POS (Pos)
[2019-12-14 04:55] LABS: Albumin Globulin Ratio 0.2 (0.9-2); Bilirubin,Total 0.2 mg/dl (0.2-1); Calcium 7.7 mg/dl (8.5-10.1); Creatinine Clr Calc Pharmacy 13.3 ml/min; Est GFR (African American) 9.6; Est GFR (Non-African American) 8.3; Magnesium 3.1 mg/dl (1.8-2.4); Phosphorus 8.5 mg/dl (2.5-4.9); Potassium 4.2 mmol/L (3.5-5.1)
[2019-12-14] MEDS: PEPTAMEN INTENSE VHP 1.0 CAL 1,000 ML BAG OG SCH (06:49)
[2019-12-14] MEDS: DOCUSATE SODIUM SYRUP 100 MG/10 ML UDC NG SCH ×2 (07:51→19:52)
[2019-12-14] MEDS: DOXYCYCLINE HYCLATE 100 MG in 0.9 % SODIUM CHLORIDE 100 ML IV SCH ×2 (07:51→19:53)
[2019-12-14] MEDS: SENNA 8.8 MG/5 ML UDP NG SCH (07:52)
[2019-12-14] MEDS: FAMOTIDINE 20 MG in SYRINGE 3 ML IV SCH (07:52)
[2019-12-14] MEDS: methylPREDNISolone 40 MG in SYRINGE 0 ML IV SCH ×2 (07:53→19:52)
[2019-12-14] MEDS ORDERED: SODIUM CHLORIDE 0.9% 1000ML 1,000 ML IV PRN (08:01)
[2019-12-14] MEDS: INSULIN GLARGINE SOLOSTAR 100 UNITS/ML 3 ML PEN SC SCH ×2 (08:23→19:54)
[2019-12-14] MEDS ORDERED: HEPARIN SOD (PORCINE) 1000 UNIT/ML 10 ML VIAL IV SCH (09:00)
[2019-12-14] MEDS ORDERED: CASPOFUNGIN 35 MG in SODIUM CHLORIDE 0.9% 250 ML IV SCH (09:00)
--- NOTE | 2019-12-14 09:06 | Pharmacy Report ---
Pharmacy Glycemic Short Note 2 - Date of Service December 14, 2019 - Glycemic Short BSG Results (Last 24 hours): 12/13/19 12/13/19 12/13/19 08:27 11:51 15:43 Glucose POC Glucose (other) 312 H 334 H 316 H 12/13/19 12/13/19 12/14/19 19:38 23:59 03:48 Glucose POC Glucose (other) 309 H 311 H 270 H 12/14/19 04:16 Glucose 257 H POC Glucose (other) OUTPATIENT ANTIDIABETIC REGIMEN: Per med rec: * Lantus 54 units SQ qPM * Glimepiride, linagliptin, and metformin * A1c = 9.4% 12/06/19 ASSESSMENT: * 64 yo male admitted to the ICU for ARDS, COVID-19 testing NEGATIVE, although still suspicion for COVID-19 infection * Pt is requiring pressor support with levophed and maintained on fentanyl and versed via continuous infusion. Temporary dialysis cath placed to maintain fluid balance in the setting of oliguric JACQUELINE with ATN. * PMH significant for T2DM, tobacco use, COPD, ASA and obesity 12/13 * Gideon received 277 units of insulin yesterday (IV pushes + SQ) * BSGs were in the 300s yesterday but are finally starting to improve today. Down to 228 this morning. * Patient remains on vent, not responding to tactile stimuli so Versed drip placed on hold. Levophed at 0.02 mcg/kg/min. * Trophic tube feeds continue. IV steroids remain at Solu-medrol 40 mg q12h. Patient will receive HD today. * Have been using IV boluses of insulin instead of an insulin infusion per provider request due to demand for PPE when on q1h accuchecks. Hold parameters in place to ensure K does not fall to < 4. 12/12: * Patient received 179 units of insulin yesterday, BSGs have ranged in the upper 200s, low 300s- seem to be holding at this level * Trophic TFs continue, steroids were decreased from methylpred 60 mg q12 to 40 mg q12 * Provider would like to continue with IV boluses every 4 hours in addition to SQ basal/bolus rather than initiating insulin drip, therefore will continue to increase lantus, tighten correction factor, ? absorption issues with levophed * Patient will not receive HD today, will need to monitor K with IV insulin administration, continue to monitor, reviewed dextrose containing medications, switched doxycycline to NS diluent, new norepinephrine bag just hung but can consider switching to NS (concentration up to 16 mcg/mL) with next bag change 12/11: * Patient received 137 units of insulin yesterday (80 basal, 57 bolus). BSGs continue to uptrend, despite aggressive increases in insulin * Trophic TFs continue and IV steroids were started yesterday (likely to continue with an eventual taper) * Discussed with the provider and nurse and ideally an insulin infusion would be initiated, but given significant logistical considerations, we will continue SQ basal/bolus and add q4 hour IV regular insulin boluses. Will continue to monitor this and make adjustments as needed. Will utilize a weight based stress of three lantus dose. This may need to be increased further, but will wait to see effects of IV regular insulin boluses. Will further tighten novolog correction factor. 12/10: * Patient received 61 units of insulin yesterday (37 basal, 24 bolus). Insulin requirements increasing, BSGs trending upward into the 200s. * Patient also starting methylpred 60 mg q12H, will attempt to avoid insulin infusion but if BSGs further increased may need to start * Patients receiving steroids equivalent to prednisone 40 mg daily and above typically require an additional 0.4 units/kg of insulin in addition to basal needed, however, will be conservative and increase total possible lantus dose to ~.25 units/kg above home regimen. * AM BSG 207, still on trophic tube feeds. Tighten correction factor for now. 12/08: * Patient received a total of 29 units of insulin yesterday (25 basal, 4 bolus). Still requiring much less than home needs indicate. Will monitor. * BSGs well controlled today * Patient was started on trophic tube feeds. I don't anticipate this effecting BSGs too much, until rate/diet is advanced, will defer carb coverage for now. 12/07 * Since the time of admission, patient has been given two doses of Lantus (20 units on 4/2 PM and 15 units on 4/4 PM). Fasting BSG of 184 mg/dL this am. I would have expected this to be higher based on home dose of Lantus. * will schedule Lantus q12 based on BSG scale * Add Novolog coverage q4h - will utilize stress of 3 dosing due to above stressors and critical illness PLAN FOR INPATIENT GLYCEMIC CONTROL: * Continue to hold outpatient oral diabetes medications * Basal insulin * Lantus BID per the following scale: * 45 units for BSG < 250 * 55 units for BSG 250 or above * Bolus insulin * NovoLog per scale q4h * Goal Range: Low 110 mg/dL - High 140 mg/dL * TIGHTEN Correction Factor: 5 mg/dL/unit * Nutritional / Prandial insulin--will hold off while TFs are trophic, plan on per carb ratio of 1 unit per 6 grams CHO consumed once TFs advanced Regular insulin: Decrease back to 5 units IVP q4h scheduled now that BSGs have started to improve and more SQ on board (Hold for BSG < 220 or potassium < 4) PLAN FOR DISCHARGE: * pending
--- NOTE | 2019-12-14 09:38 | Procedure Note ---
Procedure Note Date of Service December 14, 2019 Procedure: Inserting ultrasound-guided Shiley catheter Collections Assistant: Dr. Victor Hugo Carlisle MD Indication: Acute renal failure Consent: Telephone consent was obtained from , timeout was performed prior to procedure Anesthesia: 1% lidocaine without epinephrine local. Procedure: Consent was verified and timeout performed. Appropriate imaging studies were reviewed prior to the procedure. Under aseptic and sterile condition, left femoral vein was accessed under direct ultrasound guidance. Guidewire was confirmed to be within the lumen of vein with the help of ultrasound. Catheter was introduced via Seldinger technique. Guide a wire was removed. Good non-pulsatile blood flow was appreciated from both ports. The catheter was placed at 24 cm and sutured in place. BioPatch was applied to the catheter and a sterile Tegaderm dressing was applied over the catheter with careful attention to sterility. Patient tolerated the procedure well. Blood loss: Less than 2 cc Complications: None Coding CPT Codes Tubes, Drains, and Vasc Access - Tubes, Drains, and Vasc Access: [id number] Insertion of cannula for hemodialysis ([id number]) Tubes, Drains, and Vasc Access - Tubes, Drains, and Vasc Access: [id number] Ultrasound Guidance For Vascular ([id number]) [facility] [place] Procedure Codes (Charges) Tubes, Drains, and Vasc Access Procedure 1: Tubes, Drains, and Vasc Access: [id number] Insertion of cannula for hemodialysis Procedure 2: Tubes, Drains, and Vasc Access: [id number] Ultrasound Guidance For Vascular
[2019-12-14] MEDS ORDERED: LACTULOSE SYRUP 30 GM/45 ML UDP PO STA (09:41)
--- NOTE | 2019-12-14 09:42 | Critical Care Progress Note ---
Date of Service December 14, 2019 Assessment & Plan (1) ARDS (adult respiratory distress syndrome): 24-hour events: Afebrile. Patient still not responding much to stimuli. Went down on PEEP to 10. -- ARDS Continue with lung protective ventilation High PEEP, low tidal volume to keep Plateau < 30 with permissive hypercapnea if need be. Monitor ABGs Etiology quite unclear. Patient had bio fire x2 which has been negative along with influenza negative x2. Autoimmune work-up is also negative. Patient came in with hypoxic respiratory failure ARDS and shock now leading towards renal failure needing hemodialysis. Covid-19 negative from [facility] and [facility] labs which was sent at the day of presentation. Continue with airborne precaution as we are not sure of the etiology. --High anion gap metabolic acidosis Likely secondary to elevated BUN and CKD Patient to get hemodialysis today with bicarb bath Monitor --NSVT Keep potassium greater than 4, magnesium greater than 2, phosphorus greater than 3 Monitor Echo done 12/11/2019 shows good ejection fraction with no ventricular wall dyskinesia. --JACQUELINE now ESRD With hyperphosphatemia now needing hemodialysis Hemodialysis started on 12/08/2019 Nephrology on board Follow recommendations --Diabetes type 2 Continue with insulin sliding scale. Glycemic control as per pharmacy --Severe protein calorie malnutrition Albumin less than 0.9 Start trophic feeds --Prophylaxis Continue with Pepcid and heparin subcu --Prognosis guarded -- Lines: Left subclavian Central line, New left femoral Shiley catheter for 07/24/2020 Radial arterial line Endotracheal tube Doppler lower extremity negative for DVT bilaterally. Echo shows normal ejection fraction. Plan: In-N-Out: +950 in the last 24 hours. Patient was straight cathed and 500 mL of urine was appreciated. ABG today ABG 7.33/30/80 on PEEP 12 FiO2 60%. PEEP was decreased to 10. Patient is not responding much to tactile stimuli. We will try to just stop midazolam and see if he starts responding. Solu-Medrol to 40 mg every 12 hours. Continue with IV pushes of insulin as needed. Will avoid IV insulin drip given the necessity of PPE every hour for blood glucose. Still no bowel movements. Patient has been on Colace and senna since last 5 days, patient has been getting lactulose in the last 2 days. Will give another 30 g of lactulose today. Continue with doxycycline Fungitell negative. Caspofungin discontinued Status post insertion of left Shiley catheter for 07/24/2020 I have personally spent 56 minutes of critical care time in the direct management of this patient. This is a life/limb threatening event. This includes time spent evaluating patient, direct bedside care, chart review, placing orders, interpretation of diagnostic studies, discussion with consultants, patient, and family members, as well as other required patient management activities. This time is exclusive of all separately billable procedures, and teaching time and separate from and in addition to any other critical care service time. Please note the above document was generated using voice recognition software. It may contain grammatical, syntax or spelling errors. Admission and Anticipated Discharge Date Admission Date: December 05, 2019 Subjective Patient seen and examined at bedside. No acute distress. On low-dose Levophed. 2 of midazolam. Afebrile in the last 48 hours Review of Systems Review of Systems: Unobtainable due to cognitive status and Unobtainable due to endotracheal tube Physical Exam Physical Exam: Constitutional: No acute distress, sedated HEENT: PERRLA Respiratory system: Decreased air entry bilaterally, mild crackles bilateral lower lobes, no wheeze, no rhonchi CVS: S1-S2 positive, no murmurs or gallops, bradycardia Abdomen: Soft, nontender, nondistended, Decreased bowel sounds x4 Extremities: +2 pulses bilaterally radialis/ dorsalis pedis, no cyanosis, positive edema bilateral lower extremity Neuro: Spontaneous occasional breaths over the vent, positive gag, positive corneal Psych: Unable to assess G/U: No Kapoor Abrasion of the skin appreciated at the sacral area. Skin: no rashes, warm and dry Lymphatic: no cervical or axillary lymphadenopathy Results & Data Results & Data ([facility]) Vital Signs (Past 12 Hours) Vital Signs Temp Pulse Pulse Resp BP BP BP 12/14/19 06:48 55 L 28 H 12/14/19 04:00 54 L 12/14/19 03:16 54 L 27 H 12/14/19 00:00 56 L 130/70 12/13/19 23:45 52 L 12/13/19 23:30 56 L 12/13/19 23:20 58 L 131/73 12/13/19 23:15 62 12/13/19 23:13 66 27 H 12/13/19 23:06 57 L 12/13/19 22:18 35.9 C L 74 82/54 L 86/42 L 12/13/19 22:00 36.0 C L 55 L 26 H 128/69 127/57 L Pulse Ox 12/14/19 06:48 93 12/14/19 04:00 12/14/19 03:16 93 12/14/19 00:00 92 12/13/19 23:45 93 12/13/19 23:30 92 12/13/19 23:20 90 12/13/19 23:15 92 12/13/19 23:13 93 12/13/19 23:06 95 12/13/19 22:18 90 12/13/19 22:00 90 12/14/19 04:16 12/14/19 04:16 Coding Level of Care Code Critical Care 1st 30-74 mins Diagnoses ARDS (adult respiratory distress syndrome) J80 Time Spent (min) 56
--- NOTE | 2019-12-14 09:55 | Hospitalist Progress Note ---
Date of Service December 14, 2019 Assessment & Plan (1) Acute respiratory failure with hypoxia: Admitted to ICU. B/l pneumonia on chest x-ray, CXR with bilat peripheral infiltrates, slightly improved on chest x-ray 12/10, CXR 12/12 similar Clinical picture highly concerning for COVID-19 (normal wbc count, lymphopenia, elevated AST,elevated LDH, elevated d-dimer, cxr findings, etc). Although two nasopharyngeal tests have come back negative for COVID-19 Profoundly hypoxic upon presentation intubated in ED, early intubation- was in prone position 12/04 for 16 hours, now supine again continues on vent, not ready yet for extubation- ABG this morning was 7.33/30/80 on FiO2 60% with PEEP of 12 which is improved Defer vent management to [employer] --> today decreased PEEP to 10 -turning off versed to see if wakes up more to move towards extubation COVID negative as of 12/07 from [facility], and [facility] COVID test now also negative from 12/04 Continues to be with a very guarded prognosis with worsening renal function requiring hemodialysis, continued need for mechanical ventilation (2) ARDS (adult respiratory distress syndrome): as above, secondary to likely COVID -started trial of IV steroids on 12/10-continue and tapering down to 40mg IV q12h today (3) Suspected 2019 novel coronavirus infection: see above in "acute hypoxic resp failure" biofire negative x 2 flu negative COVID-19 negative on 12/07 from [facility] and also now on [facility] COVID test -Unclear etiology-> continue airborne precautions -pulmonary/critical care team has decided not to repeat tracheal aspirate sample for COVID-19 testing as it would not guide changer at this time (4) Sepsis: Secondary to pneumonia -continue supportive care Fevers now resolved x 48 hrs Levophed being weaned down (5) Bilateral pneumonia: see above blood cx's NGTD Sputum cx no growth and repeat SPutum cx pending Legionella urine antigen negative broad spectrum antibiotics given with Rocephin and doxy-has now completed a course of rocephin; doxy continues -was on IV Caspofungin empirically--> now Fungitell negative--> dc Caspo (6) Acute renal failure (ARF): Secondary to dehydration/sepsis/ATN Normosol hydration given initially Became oliguric, creatinine worsening daily despite ultrafiltration, with hyperkalemia now resolved with dialysis Now with metabolic acidosis -made 500mL urine on straight cath on 12/12 Now continues on hemodialysis, started 12/07, HD catheter discontinued from Rt femoral and replaced in left femoral 12/13 -continue to HOLD MIKAEL and HCTZ -avoid NSAIDs -vasculitis workup negative Appreciate nephrology consultation for hemodialysis management of renal failure -Follow BMP in the morning -Follow urine output (7) Chronic obstructive pulmonary disease: by history, but not on inhalers at home. (8) Current smoker: 50+ years of smoking per patient (9) Gastroesophageal reflux disease: Pepcid protocol per ICU (10) Gout: no recent issues not on prophylaxis (11) Obstructive sleep apnea: noted (12) Hyperlipidemia: hold STATIN-however would consider restarting this as it can have some anti-inflammatory effect anecdotally in the setting of a massive inflammatory state (13) Hypertension: HOLDING anti-hypertensives (HCTZ, MIKAEL, norvasc, etc) for hypotension--> still requiring levophed but tapering almost completely off (14) Diabetes mellitus type II, uncontrolled: hyperglycemic ICU protocol, hyperglycemia is worsened with starting IV steroids-pharmacy has intensified the insulin regimen defer to pharmacy (15) Hyponatremia: likely due to dehydration/volume depletion and chronic HCTZ use on admission, but now is likely due to volume overload from renal failure -To be managed with dialysis-improved (16) Metabolic encephalopathy: multifactorial - sepsis, pneumonia, possible COVID-19, hyponatremia, hypoxia, etc supportive care (17) Rhabdomyolysis: CPK elevated at 2449 and now down to 461 Likely secondary to sepsis/infection (18) DVT prophylaxis: SQ Heparin FEN-patient on tube feeds Dispo-remains in critical condition with very poor prognosis for recovery with multisystem organ failure FULL CODE Continued stay in ICU Admission and Anticipated Discharge Date Admission Date: December 05, 2019 Subjective Pt remains intubated and sedated. Discussed the case with Nephrology-plans for HD today. He had a left femoral Shiley cath placed for HD access. Review of Systems Review of Systems: Unobtainable due to endotracheal tube Physical Exam Physical Exam: I observed the patient through the window, but deferred PE to [employer] due to suspected COVID 19 and limiting provider exposure Results & Data Results & Data ([facility]) Vital Signs (Past 12 Hours) Vital Signs Temp Pulse Pulse Resp BP BP BP 04/11/20 06:48 55 L 28 H 12/14/19 04:00 54 L 12/14/19 03:16 54 L 27 H 12/14/19 00:00 56 L 130/70 12/13/19 23:45 52 L 12/13/19 23:30 56 L 12/13/19 23:20 58 L 131/73 12/13/19 23:15 62 12/13/19 23:13 66 27 H 12/13/19 23:06 57 L 12/13/19 22:18 35.9 C L 74 82/54 L 86/42 L 12/13/19 22:00 36.0 C L 55 L 26 H 128/69 127/57 L Pulse Ox 12/14/19 06:48 93 12/14/19 04:00 12/14/19 03:16 93 12/14/19 00:00 92 12/13/19 23:45 93 12/13/19 23:30 92 12/13/19 23:20 90 12/13/19 23:15 92 12/13/19 23:13 93 12/13/19 23:06 95 12/13/19 22:18 90 12/13/19 22:00 90 PG Care Time/CCT Total # of Minutes Spent Total Time Spent with Patient: Total time spent is greater than 50% in coordination of care (as documented) at patient's floor/unit and/or counseling patient: Coding Level of Care Code None Diagnoses Acute respiratory failure with hypoxia J96.01 ARDS (adult respiratory distress syndrome) J80 Suspected 2019 novel coronavirus infection R68.89 Sepsis A41.9 Bilateral pneumonia J18.9 Lung location: lower lobe of lung Pneumonia type: due to unspecified organism Acute renal failure (ARF) N17.9 Acute renal failure type: unspecified Chronic obstructive pulmonary disease J44.9 Current smoker F17.200 Gastroesophageal reflux disease K21.9 Gout M10.9 Obstructive sleep apnea G47.33 Hyperlipidemia E78.5 Hypertension I10 Diabetes mellitus type II, uncontrolled E11.65 Hyponatremia E87.1 Metabolic encephalopathy G93.41 Rhabdomyolysis M62.82 DVT prophylaxis Z29.9 (1) Acute renal failure (ARF) Acute renal failure type: unspecified Qualified Code(s): N17.9 - Acute kidney failure, unspecified (2) Bilateral pneumonia Lung location: lower lobe of lung Pneumonia type: due to unspecified organism Qualified Code(s): J18.9 - Pneumonia, unspecified organism
--- NOTE | 2019-12-14 11:13 | Nephrology Progress Note ---
Date of Service December 14, 2019 Assessment & Plan (1) JACQUELINE (acute kidney injury): -- Baseline Cr 1.4. JACQUELINE due to ischemic ATN. Renal US negative for obstruction. Urinalysis w/ 2+ protein, microscopic hematuria and pyuria. Vasculitis evaluation was negative -- UO mildly improved. Will monitor -- Progressive azotemia likely related to high catabolic rate and steroid administration -- Will provide HD today for correction of azotemia, acidemia and attempt 2 L UF. Orders were entered into EMR and HD RN notified (2) ARDS (adult respiratory distress syndrome): -- Biofire and COVID testing negative. Etiology of ARDS unclear -- On high dose steroid therapy -- Attempt UF w/ HD Subjective Mr. Hinkle was seen in the ICU. Examination withheld due to COVID-19 pandemic. Plan of care was reviewed w/ ICU team this morning. Mr. Hinkle remains mechanically ventilated and requires low dose pressor support. ICU attending has placed a new L femoral dialysis catheter and removed the prior access. Review of Systems Review of Systems: Unobtainable due to endotracheal tube Results & Data Vital Signs (Past 12 Hours) Vital Signs Pulse Resp BP Pulse Ox 12/14/19 08:00 55 L 12/14/19 06:48 55 L 28 H 93 12/14/19 04:00 54 L 12/14/19 03:16 54 L 27 H 93 12/14/19 00:00 56 L 130/70 92 12/13/19 23:45 52 L 93 12/13/19 23:30 56 L 92 12/13/19 23:20 58 L 131/73 90 12/13/19 23:15 62 92 12/13/19 23:13 66 27 H 93 Laboratory Results Laboratory Tests 12/14/19 12/14/19 04:16 04:16 WBC 12.47 H Hgb 10.4 L Hct 31.8 L Plt Count 345 Sodium 135 L Potassium 4.2 Chloride 107 Carbon Dioxide 18 L BUN 147 H Creatinine 6.38 H* PG Care Time/CCT Total # of Minutes Spent Total Time Spent with Patient: Total time spent is greater than 50% in coordination of care (as documented) at patient's floor/unit and/or counseling patient: Coding Level of Care Code 18257 Subseq Hosp Care Lvl 3 Diagnoses JACQUELINE (acute kidney injury) N17.9 ARDS (adult respiratory distress syndrome) J80
[2019-12-14] MEDS: INSULIN HUMAN REGULAR PER UNIT 5 UNITS in SYRINGE 4.95 ML IV SCH ×3 (11:39→19:52)
[2019-12-14] MEDS: HEPARIN SOD (PORCINE) 1000 UNIT/ML 10 ML VIAL IV SCH ×3 (13:30→15:26)
[2019-12-14] MEDS ORDERED: GLYCOPYRROLATE 0.2 MG/ML VIAL IV PRN (16:27)
[2019-12-14] MEDS: MIDAZOLAM HCL 125 MG/250 ML BAG IV SCH (17:20)
[2019-12-15] MEDS: INSULIN ASPART 100 UNITS/ML 3 ML PEN SQ SCH ×6 (00:07→20:14)
[2019-12-15] MEDS: INSULIN HUMAN REGULAR PER UNIT 5 UNITS in SYRINGE 4.95 ML IV SCH ×6 (00:07→20:12)
[2019-12-15 04:15] LABS: Basophils # (auto) 0.02 K/uL (0-0.2); Basophils % (auto) 0.1 %; Hematocrit (blood only) 33.6 % (42-52); Hemoglobin 11.3 g/dL (14.0-18.0); Immature Granulocytes # (auto) 0.76 K/uL (0.00-0.02); Immature Granulocytes % (auto) 4.5 %; Lymphocytes # (auto) 0.54 K/uL (1.2-3.4); Lymphocytes % (auto) 3.2 %; Mean Corpuscular Hemoglobin 29.4 pg (25-34); Mean Corpuscular Hgb Conc 33.6 g/dL (32-36); Mean Corpuscular Volume 87.5 fL (80-100); Mean Platelet Volume 8.9 fL (7.4-10.4); Monocytes # (auto) 1.48 K/uL (0.11-0.59); Monocytes % (auto) 8.8 %; Neutrophils % (auto) 83.4 %; Nucleated RBC # (auto) 0.06 K/uL (0-0); Nucleated RBC % (auto) 0.3 %; Platelet Count 349 K/uL (130-400); RDW Coefficient of Variation 13.9 % (11.5-14.5); RDW Standard Deviation 44.4 fL (36.4-46.3); Red Blood Count 3.84 M/uL (4.7-6.1)
[2019-12-15] MEDS: HEPARIN SOD 5,000 UNIT/0.5 ML VIAL SQ SCH ×3 (04:20→20:13)
[2019-12-15 04:49] LABS: Albumin Globulin Ratio 0.3 (0.9-2); Albumin Level 1.3 gm/dl (3.4-5.0); Bilirubin,Total 0.4 mg/dl (0.2-1); Calcium 8.2 mg/dl (8.5-10.1); Est GFR (African American) 13.1; Est GFR (Non-African American) 11.3; Globulin 5.2 gm/dl (2.5-4.0); Phosphorus 8.6 mg/dl (2.5-4.9); Potassium 4.6 mmol/L (3.5-5.1); Total Protein 6.5 gm/dl (6.4-8.2)
[2019-12-15] MEDS: PEPTAMEN INTENSE VHP 1.0 CAL 1,000 ML BAG OG SCH (06:05)
--- NOTE | 2019-12-15 07:22 | XRay Report ---
XR chest 1V portable CLINICAL HISTORY: Respiratory failure COMPARISON STUDY: 12/13/2019 FINDINGS: r there is an endotracheal tube 4 cm above the isra. There is a nasogastric tube within t he stomach. The heart remains enlarged. There are persistent bilateral pulmonary opacities with a low er lung zone predominance. There is mild vascular/interstitial prominence.[ IMPRESSION: 1. Stable cardiomegaly and interstitial prominence 2. Persistent bilateral pulmonary opacities with a lower lung zone predominance. ACT 112: Negative or not required by law. Electronically signed by: Rob Honeycutt M.D. 12/15/2019 7:21 AM
[2019-12-15 07:46] LABS: iSTAT Arterial Blood Gas HCO3 18 meg/L (19-24); iSTAT Arterial Blood Gas pCO2 31 mmHg (35-46); iSTAT Arterial Blood Gas pH 7.37 (7.35-7.45); iSTAT Arterial Blood Gas pO2 72 mmHg (80-95); iSTAT Carbon Dioxide 19 mmol/L (24-31); iSTAT FiO2 50 %; iSTAT Site Art Line
[2019-12-15] MEDS: DOCUSATE SODIUM SYRUP 100 MG/10 ML UDC NG SCH ×2 (07:50→20:13)
[2019-12-15] MEDS: DOXYCYCLINE HYCLATE 100 MG in 0.9 % SODIUM CHLORIDE 100 ML IV SCH ×2 (07:50→20:15)
[2019-12-15] MEDS: methylPREDNISolone 40 MG in SYRINGE 0 ML IV SCH (07:50)
[2019-12-15] MEDS: SENNA 8.8 MG/5 ML UDP NG SCH (07:51)
[2019-12-15] MEDS: FAMOTIDINE 20 MG in SYRINGE 3 ML IV SCH (07:52)
[2019-12-15] MEDS: INSULIN GLARGINE SOLOSTAR 100 UNITS/ML 3 ML PEN SC SCH ×2 (08:21→20:13)
[2019-12-15] MEDS ORDERED: SODIUM CHLORIDE 0.9% 1000ML 1,000 ML IV PRN (09:12)
--- NOTE | 2019-12-15 09:17 | Nephrology Progress Note ---
Date of Service December 15, 2019 Assessment & Plan (1) JACQUELINE (acute kidney injury): -- Baseline Cr 1.4. JACQUELINE due to ischemic ATN. Renal US negative for obstruction. Urinalysis w/ 2+ protein, microscopic hematuria and pyuria. Vasculitis evaluation was negative -- UO mildly improved. Will monitor -- Progressive azotemia likely related to high catabolic rate and steroid administration -- Will provide HD today for correction of azotemia, acidemia and attempt 1 L UF. Orders were entered into EMR and HD RN notified (2) ARDS (adult respiratory distress syndrome): -- Biofire and COVID testing negative. Etiology of ARDS unclear -- Steroid therapy is now being tapered. FiO2 has been reduced to 50% with PEEP 8 -- CXR film reviewed: no significant rover tender last 24 hours -- Attempt 1L UF w/ HD today Subjective Mr. Hinkle was seen in the ICU. Examination withheld due to COVID-19 pandemic. Plan of care was reviewed w/ ICU team this morning. Mr. Hinkle was dialyzed yesterday for 4 hours w/ 1700 cc UF. Catheter was run reversed due to poor arterial flow. Levophed has been weaned to off. FiO2 has been reduced to 50% w/ PEEP 8. Patient produced 500 cc UO yesterday. BUN remains elevated and patient has metabolic acidosis which may impede weaning from ventilator. Review of Systems Review of Systems: Unobtainable due to endotracheal tube Physical Exam Physical Exam: PE not performed due to COVID 19 pandemic - on droplet precautions Results & Data Vital Signs (Past 12 Hours) Vital Signs Pulse Resp BP Pulse Ox 12/15/19 06:20 65 130/61 92 12/15/19 05:19 60 134/73 93 12/15/19 04:20 57 L 142/76 H 94 12/15/19 03:25 56 L 27 H 95 12/15/19 03:19 54 L 103/78 94 12/15/19 02:20 60 125/67 95 12/15/19 01:19 55 L 122/71 12/15/19 00:20 62 105/61 94 12/15/19 00:00 54 L 12/14/19 23:20 57 L 136/73 92 12/14/19 23:08 65 26 H 94 12/14/19 23:00 69 90 12/14/19 22:56 67 122/83 94 12/14/19 22:30 55 L 94 12/14/19 22:19 62 149/75 H 93 12/14/19 22:00 59 L 95 12/14/19 21:30 56 L 94 12/14/19 21:19 63 132/72 95 Laboratory Results Laboratory Tests 12/15/19 12/15/19 03:41 03:41 WBC 16.80 H Hgb 11.3 L Hct 33.6 L Plt Count 349 Sodium 134 L Potassium 4.6 Chloride 105 Carbon Dioxide 19 L BUN 121 H Creatinine 4.95 H* D Glucose 242 H PG Care Time/CCT Total # of Minutes Spent Total Time Spent with Patient: Total time spent is greater than 50% in coordination of care (as documented) at patient's floor/unit and/or counseling patient: Coding Level of Care Code 70444 Subseq Hosp Care Lvl 3 Diagnoses JACQUELINE (acute kidney injury) N17.9 ARDS (adult respiratory distress syndrome) J80
--- NOTE | 2019-12-15 09:41 | Pharmacy Report ---
Pharmacy Glycemic Short Note 2 - Date of Service December 15, 2019 - Glycemic Short BSG Results (Last 24 hours): 12/14/19 12/14/19 12/14/19 08:20 11:37 16:01 Glucose POC Glucose (other) 228 H 210 H 178 H 12/14/19 12/15/19 12/15/19 19:38 00:04 03:41 Glucose 242 H POC Glucose (other) 260 H 248 H 12/15/19 12/15/19 03:52 07:33 Glucose POC Glucose (other) 238 H 219 H OUTPATIENT ANTIDIABETIC REGIMEN: Per med rec: * Lantus 54 units SQ qPM * Glimepiride, linagliptin, and metformin * A1c = 9.4% 12/06/19 ASSESSMENT: * 64 yo male admitted to the ICU for ARDS, COVID-19 testing NEGATIVE, although still suspicion for COVID-19 infection * Pt is requiring pressor support with levophed and maintained on fentanyl and versed via continuous infusion. Temporary dialysis cath placed to maintain fluid balance in the setting of oliguric JACQUELINE with ATN. * PMH significant for T2DM, tobacco use, COPD, ASA and obesity 12/14 * Patient received 238 units of insulin yesterday * BSGs ranged from 178-270 mg/dL; fasting BSG trending down to 219 this AM. * Patient remains on vent, Versed gtt restarted secondary to ventilator asynchrony. Levophed running at 0.01 mcg/kg/min. * Trophic tube feeds continue. IV steroids decreased to Solu-Medrol 40 mg once daily. Patient will receive HD today. * Have been using IV boluses of insulin instead of an insulin infusion per provider request due to demand for PPE when on q1h accuchecks. Hold parameters in place to ensure K does not fall to < 4. * Will decrease in IV steroids and Levophed dose, expect BSGs to improve today, no changes at this time. 12/13 * Gideon received 277 units of insulin yesterday (IV pushes + SQ) * BSGs were in the 300s yesterday but are finally starting to improve today. Down to 228 this morning. * Patient remains on vent, not responding to tactile stimuli so Versed drip placed on hold. Levophed at 0.02 mcg/kg/min. * Trophic tube feeds continue. IV steroids remain at Solu-medrol 40 mg q12h. Patient will receive HD today. * Have been using IV boluses of insulin instead of an insulin infusion per provider request due to demand for PPE when on q1h accuchecks. Hold parameters in place to ensure K does not fall to < 4. 12/12: * Patient received 179 units of insulin yesterday, BSGs have ranged in the upper 200s, low 300s- seem to be holding at this level * Trophic TFs continue, steroids were decreased from methylpred 60 mg q12 to 40 mg q12 * Provider would like to continue with IV boluses every 4 hours in addition to SQ basal/bolus rather than initiating insulin drip, therefore will continue to increase lantus, tighten correction factor, ? absorption issues with levophed * Patient will not receive HD today, will need to monitor K with IV insulin administration, continue to monitor, reviewed dextrose containing medications, switched doxycycline to NS diluent, new norepinephrine bag just hung but can consider switching to NS (concentration up to 16 mcg/mL) with next bag change 12/11: * Patient received 137 units of insulin yesterday (80 basal, 57 bolus). BSGs continue to uptrend, despite aggressive increases in insulin * Trophic TFs continue and IV steroids were started yesterday (likely to continue with an eventual taper) * Discussed with the provider and nurse and ideally an insulin infusion would be initiated, but given significant logistical considerations, we will continue SQ basal/bolus and add q4 hour IV regular insulin boluses. Will continue to monitor this and make adjustments as needed. Will utilize a weight based stress of three lantus dose. This may need to be increased further, but will wait to see effects of IV regular insulin boluses. Will further tighten novolog correction factor. 12/10: * Patient received 61 units of insulin yesterday (37 basal, 24 bolus). Insulin requirements increasing, BSGs trending upward into the 200s. * Patient also starting methylpred 60 mg q12H, will attempt to avoid insulin infusion but if BSGs further increased may need to start * Patients receiving steroids equivalent to prednisone 40 mg daily and above typically require an additional 0.4 units/kg of insulin in addition to basal needed, however, will be conservative and increase total possible lantus dose to ~.25 units/kg above home regimen. * AM BSG 207, still on trophic tube feeds. Tighten correction factor for now. 12/08: * Patient received a total of 29 units of insulin yesterday (25 basal, 4 bolus). Still requiring much less than home needs indicate. Will monitor. * BSGs well controlled today * Patient was started on trophic tube feeds. I don't anticipate this effecting BSGs too much, until rate/diet is advanced, will defer carb coverage for now. 12/07 * Since the time of admission, patient has been given two doses of Lantus (20 units on 4/2 PM and 15 units on 4/4 PM). Fasting BSG of 184 mg/dL this am. I would have expected this to be higher based on home dose of Lantus. * will schedule Lantus q12 based on BSG scale * Add Novolog coverage q4h - will utilize stress of 3 dosing due to above stressors and critical illness PLAN FOR INPATIENT GLYCEMIC CONTROL: * Continue to hold outpatient oral diabetes medications * Basal insulin * Lantus BID per the following scale: * 45 units for BSG < 250 * 55 units for BSG 250 or above * Bolus insulin * NovoLog per scale q4h * Goal Range: Low 110 mg/dL - High 140 mg/dL * TIGHTEN Correction Factor: 5 mg/dL/unit * Nutritional / Prandial insulin--will hold off while TFs are trophic, plan on per carb ratio of 1 unit per 6 grams CHO consumed once TFs advanced Regular insulin: 5 units IV q4h (Hold for BSG < 220 or potassium < 4) PLAN FOR DISCHARGE: * pending
[2019-12-15] MEDS ORDERED: HEPARIN SOD (PORCINE) 1000 UNIT/ML 10 ML VIAL IV SCH ×2 (10:00→11:00)
[2019-12-15] MEDS: NOREPINEPHRINE BIT INJ 16 MG in DEXTROSE 5% 500 ML IV SCH ×2 (11:27→19:21)
[2019-12-15] MEDS: MIDAZOLAM BOLUS FROM BAG IV PRN ×2 (11:30→15:37)
[2019-12-15] MEDS: FENTANYL BOLUS FROM BAG IV PRN ×2 (11:30→15:36)
[2019-12-15] MEDS ORDERED: SEVELAMER HCL 800 MG TABLET PO SCH (12:00)
--- NOTE | 2019-12-15 13:04 | Critical Care Progress Note ---
Date of Service December 15, 2019 Assessment & Plan (1) ARDS (adult respiratory distress syndrome): 24-hour events: Afebrile, when sedation is turned off patient does get restless and starts fighting the vent. But does not follow command. PEEP 8 now. -- ARDS Continue with lung protective ventilation Keep Plateau < 30 with permissive hypercapnea if need be. Monitor ABGs Etiology quite unclear. Patient had bio fire x2 which has been negative along w ith influenza negative x2. Autoimmune work-up is also negative. Patient came in with hypoxic respiratory failure ARDS and shock now leading towards renal failure needing hemodialysis. Covid-19 negative from [facility] and [facility] labs which was sent at the day of presentation. Continue with airborne precaution as we are not sure of the etiology. --High anion gap metabolic acidosis Likely secondary to elevated BUN and CKD Patient to get hemodialysis with higher bicarb bath, discussed with nephrology Monitor --JACQUELINE now ESRD With hyperphosphatemia now needing hemodialysis Hemodialysis started on 12/08/2019 Nephrology on board Follow recommendations --NSVT Keep potassium greater than 4, magnesium greater than 2, phosphorus greater than 3 Monitor Echo done 12/11/2019 shows good ejection fraction with no ventricular wall dyskin esia. --Diabetes type 2 Continue with insulin sliding scale. Glycemic control as per pharmacy --Severe protein calorie malnutrition Albumin less than 0.9 Start trophic feeds --Prophylaxis Continue with Pepcid and heparin subcu --Prognosis guarded -- Lines: Left subclavian Central line, New left femoral Shiley catheter for 07/24/2020 Radial arterial line Endotracheal tube Doppler lower extremity negative for DVT bilaterally. Echo shows normal ejection fraction. Plan: In-N-Out: -1 L in the last 24 hours. ABG today ABG 7.37/31/72 on 60% FiO2 and PEEP of 8. We will go down on FiO2 to 50% and decrease respiratory rate to 18. Chest x-ray from today still shows bilateral alveolar infiltrates. No significant change from chest x-ray done on 12/13/2019. Yesterday midazolam and fentanyl were stopped to see if the patient responds. Patient has an purposeful movement but does not follow command and started fighting the vent was restarted on low-dose midazolam and fentanyl. Change Solu-Medrol to 40 mg daily today. Sugars are still on the higher side but better controlled compared to before. Continue with IV pushes of insulin as needed. Continue with doxycycline Patient's is being updated on a daily basis via phone. She did wish to see the patient via face time when he is off sedation. We will try to get that in place. I have personally spent 52 minutes of critical care time in the direct management of this patient. This is a life/limb threatening event. This includes time spent evaluating patient, direct bedside care, chart review, placing orders, interpretation of diagnostic studies, discussion with consultants, patient, and family members, as well as other required patient management activities. This time is exclusive of all separately billable procedures, and teaching time and separate from and in addition to any other critical care service time. Please note the above document was generated using voice recognition software. It may contain grammatical, syntax or spelling errors. Admission and Anticipated Discharge Date Admission Date: December 05, 2019 Subjective Patient seen and examined at bedside. No acute distress. On midozalam 2, fentanyl 25 Breathing over the vent. On low-dose Levophed 0.02 mics Review of Systems Review of Systems: Unobtainable due to cognitive status and Unobtainable due to endotracheal tube Physical Exam Physical Exam: Constitutional: No acute distress, sedated HEENT: PERRLA Respiratory system: Decreased air entry bilaterally, mild crackles bilateral lower lobes, no wheeze, no rhonchi CVS: S1-S2 positive, no murmurs or gallops, bradycardia Abdomen: Soft, nontender, nondistended, Decreased bowel sounds x4 Extremities: +2 pulses bilaterally radialis/ dorsalis pedis, no cyanosis, positive minimal edema bilateral lower extremity Neuro: Spontaneous occasional breaths over the vent, positive gag, positive corneal Psych: Unable to assess G/U: No Kapoor Abrasion of the skin appreciated at the sacral area. Skin: no rashes, warm and dry Lymphatic: no cervical or axillary lymphadenopathy Results & Data Results & Data ([facility]) Vital Signs (Past 12 Hours) Vital Signs Temp Pulse Pulse Resp BP Pulse Ox 12/15/19 12:40 83 84/46 L 12/15/19 12:20 82 100/58 L 12/15/19 12:00 65 102/54 L 12/15/19 11:48 66 126/60 12/15/19 11:18 36.2 C L 65 12/15/19 08:00 65 102/54 L 12/15/19 06:20 65 130/61 92 12/15/19 05:19 60 134/73 93 12/15/19 04:20 57 L 142/76 H 94 12/15/19 03:25 56 L 27 H 95 12/15/19 03:19 54 L 103/78 94 12/15/19 02:20 60 125/67 95 12/15/19 01:19 55 L 122/71 12/15/19 03:41 12/15/19 03:41 Coding Level of Care Code Critical Care 1st 30-74 mins Diagnoses ARDS (adult respiratory distress syndrome) J80 Time Spent (min) 52
--- NOTE | 2019-12-15 13:41 | Hospitalist Progress Note ---
Date of Service December 15, 2019 Assessment & Plan (1) Acute respiratory failure with hypoxia: Admitted to ICU. B/l pneumonia on chest x-ray, CXR with bilat peripheral infiltrates, slightly improved on chest x-ray 12/10, CXR 12/12 similar and chest x-ray again on 12/14 similar with pleural effusions Clinical picture highly concerning for COVID-19 (normal wbc count, lymphopenia, elevated AST,elevated LDH, elevated d-dimer, cxr findings, etc). Although two nasopharyngeal tests have come back negative for [id number] negative as of 12/07 from [facility], and [facility] COVID test now also negative from 12/04 Profoundly hypoxic upon presentation-intubated in ED -Was in prone position 12/04 for 16 hours, now supine again -Continues on vent, not ready yet for extubation but overall improving and vent settings are weaning down- ABG this morning was 7.37// on FiO2 50% with PEEP of 8 which is much improved Defer vent management to Hub Lead -He did become agitated when Versed was turned off yesterday-now remains on low- dose Versed and fentanyl for sedation -Continues with hemodialysis to remove volume and help correct acidosis Continues to be with a very guarded prognosis with worsening renal function requiring hemodialysis, continued need for mechanical ventilation (2) ARDS (adult respiratory distress syndrome): as above, secondary to likely COVID -started trial of IV steroids on 12/10-continue and tapering down to 40mg IV q24h today (3) Suspected 2018 novel coronavirus infection: see above in "acute hypoxic resp failure" biofire negative x 2 flu negative COVID-19 negative on 12/07 from [facility] and also now on [facility] COVID test -Unclear etiology-> continue airborne precautions -pulmonary/critical care team has decided not to repeat tracheal aspirate sample for COVID-19 testing 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 (4) Sepsis: Secondary to pneumonia -continue supportive care Fevers now resolved since 12/11 Levophed being weaned down and remains on very low-dose (5) Bilateral pneumonia: see above blood cx's NGTD Sputum cx no growth and repeat SPutum cx again with normal monie Legionella urine antigen negative broad spectrum antibiotics given with Rocephin and doxy-has now completed a course of rocephin; doxy continues -was on IV Caspofungin empirically--> now Fungitell negative--> dcd Caspo Chest x-ray findings as above -Follow chest x-ray as per pulmonary (6) Acute renal failure (ARF): Secondary to dehydration/sepsis/ATN Normosol hydration given initially Became oliguric, creatinine worsening daily despite ultrafiltration, with hyperkalemia now resolved with dialysis Now with metabolic acidosis which is persisting -made 500mL urine on straight cath on 12/12 Now continues on hemodialysis, started 12/07, HD catheter discontinued from Rt femoral and replaced in left femoral 12/13 -continue to HOLD MIKAEL and HCTZ -avoid NSAIDs -vasculitis workup negative Appreciate nephrology consultation for hemodialysis management of renal failure- for dialysis again today 12/14 with goal of ultrafiltration of 1 L and high bicarbonate bath -Follow BMP in the morning -Follow urine output (7) Chronic obstructive pulmonary disease: by history, but not on inhalers at home. (8) Current smoker: 50+ years of smoking per patient (9) Gastroesophageal reflux disease: Pepcid once daily which is renal dosing (10) Gout: no recent issues not on prophylaxis (11) Obstructive sleep apnea: noted (12) Hyperlipidemia: hold STATIN-however would consider restarting this as it can have some anti-inflammatory effect anecdotally in the setting of a massive inflammatory state (13) Hypertension: HOLDING anti-hypertensives (HCTZ, MIKAEL, norvasc, etc) for hypotension--> still requiring levophed but tapering almost completely off (14) Diabetes mellitus type II, uncontrolled: hyperglycemic ICU protocol, hyperglycemia worsened with starting IV steroids-pharmacy has intensified the insulin regimen and steroids are being tapered down-glucose is now improved defer to pharmacy (15) Hyponatremia: likely due to dehydration/volume depletion and chronic HCTZ use on admission, but now is likely due to volume overload from renal failure -To be managed with dialysis-improved (16) Metabolic encephalopathy: multifactorial - sepsis, pneumonia, possible COVID-19, hyponatremia, hypoxia, etc supportive care (17) Rhabdomyolysis: CPK elevated at 2449 and now down to 461 Likely secondary to sepsis/infection (18) Ileus: He has not had a bowel movement throughout his hospital stay He has been given lactulose on several occasions, continues on docusate 100 mg twice daily per OG tube as well as sennosides 8.8 mg once daily -His feeds are only on trickle 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 I discussed the case with the RN. Plan is for hemodialysis today. His Levophed is weaned to 0.02 mcgs, he is back on low-dose Versed and fentanyl. He did wake up and was agitated when sedation was held yesterday. Review of Systems Review of Systems: Unobtainable due to endotracheal tube Physical Exam Physical Exam: Sedated and intubated, no obvious skin rashes Results & Data Results & Data ([facility]) Vital Signs (Past 12 Hours) Vital Signs Temp Pulse Pulse Resp BP Pulse Ox 12/15/19 13:30 74 93 12/15/19 13:20 73 137/75 90 12/15/19 13:00 72 99/56 L 92 12/15/19 12:40 83 84/46 L 12/15/19 12:30 82 91 12/15/19 12:20 82 100/58 L 12/15/19 12:19 83 97/71 L 89 L 12/15/19 12:00 71 102/54 L 90 12/15/19 11:48 66 126/60 12/15/19 11:30 65 94 12/15/19 11:19 65 111/69 94 12/15/19 11:18 36.2 C L 65 12/15/19 11:00 65 94 12/15/19 10:30 58 L 93 12/15/19 10:20 57 L 142/57 H 95 12/15/19 10:00 57 L 94 12/15/19 09:30 62 94 12/15/19 09:19 60 122/76 95 12/15/19 09:00 60 94 12/15/19 08:30 65 94 12/15/19 08:19 68 125/70 94 12/15/19 08:00 61 102/54 L 94 12/15/19 07:30 63 93 12/15/19 07:19 67 127/77 93 12/15/19 07:00 69 92 12/15/19 06:37 74 130/61 91 12/15/19 06:30 71 91 12/15/19 06:21 66 91 12/15/19 06:20 65 130/61 92 12/15/19 05:19 60 134/73 93 12/15/19 04:20 57 L 142/76 H 94 12/15/19 03:25 56 L 27 H 95 12/15/19 03:19 54 L 103/78 94 12/15/19 02:20 60 125/67 95 Laboratory Results 12/15/19 12/15/19 12/15/19 Range/Units 07:33 07:30 03:52 WBC (4.8-10.8) K/uL RBC (4.7-6.1) M/uL Hgb (14.0-18.0) g/dL Hct (42-52) % MCV (80-100) fL MCH (25-34) pg MCHC (32-36) g/dL RDW Std Deviation (36.4-46.3) fL RDW Coeff of Josué (11.5-14.5) % Plt Count (130-400) K/uL MPV (7.4-10.4) fL Immature Gran % (Auto) % Neut % (Auto) % Lymph % (Auto) % Dade % (Auto) % Eos % (Auto) % Baso % (Auto) % Immature Gran # (Auto) (0.00-0.02) K/uL Neut # (Auto) (1.4-6.5) K/uL Lymph # (Auto) (1.2-3.4) K/uL Dade # (Auto) (0.11-0.59) K/uL Eos # (Auto) (0-0.5) K/uL Baso # (Auto) (0-0.2) K/uL Absolute Nucleated RBC (0-0) K/uL Nucleated RBC % (auto) % Sample Site Art Line POC pH 7.37 (7.35-7.45) POC pCO2 31 L (35-46) mmHg POC pO2 72 L (80-95) mmHg POC HCO3 18 L (19-24) vivi/L POC Total CO2 19 L (24-31) mmol/L POC Base Excess -7.0 (-9-1.8) vivi/L POC ABG O2 Sat 94.0 (90-95) % Garett Test NA O2 Delivery Device Ventilator Minute Ventilation 15.8 POC FiO2 50 % Tidal Volume 480 PEEP 8 Sodium (136-145) mmol/L Potassium (3.5-5.1) mmol/L Chloride (98-107) mmol/L Carbon Dioxide (21-32) mmol/L Anion Gap (3-11) BUN (7-18) mg/dl Creatinine (0.6-1.4) mg/dl Est Cr Clr Drug Dosing ml/min Est GFR ( Amer) Est GFR (Non-Af Amer) BUN/Creatinine Ratio (10-20) Glucose (70-99) mg/dl POC Glucose (other) 219 H 238 H (70-99) mg/dl Calcium (8.5-10.1) mg/dl Phosphorus (2.5-4.9) mg/dl Magnesium (1.8-2.4) mg/dl Total Bilirubin (0.2-1) mg/dl AST (15-37) U/L ALT (12-78) U/L Alkaline Phosphatase (45-117) U/L Total Protein (6.4-8.2) gm/dl Albumin (3.4-5.0) gm/dl Globulin (2.5-4.0) gm/dl Albumin/Globulin Ratio (0.9-2) 12/15/19 12/15/19 12/15/19 Range/Units 03:41 03:41 00:04 WBC 16.80 H (4.8-10.8) K/uL RBC 3.84 L (4.7-6.1) M/uL Hgb 11.3 L (14.0-18.0) g/dL Hct 33.6 L (42-52) % MCV 87.5 (80-100) fL MCH 29.4 (25-34) pg MCHC 33.6 (32-36) g/dL RDW Std Deviation 44.4 (36.4-46.3) fL RDW Coeff of Josué 13.9 (11.5-14.5) % Plt Count 349 (130-400) K/uL MPV 8.9 (7.4-10.4) fL Immature Gran % (Auto) 4.5 % Neut % (Auto) 83.4 % Lymph % (Auto) 3.2 % Dade % (Auto) 8.8 % Eos % (Auto) 0.0 % Baso % (Auto) 0.1 % Immature Gran # (Auto) 0.76 H (0.00-0.02) K/uL Neut # (Auto) 14.00 H (1.4-6.5) K/uL Lymph # (Auto) 0.54 L (1.2-3.4) K/uL Dade # (Auto) 1.48 H (0.11-0.59) K/uL Eos # (Auto) 0.00 (0-0.5) K/uL Baso # (Auto) 0.02 (0-0.2) K/uL Absolute Nucleated RBC 0.06 H (0-0) K/uL Nucleated RBC % (auto) 0.3 % Sample Site POC pH (7.35-7.45) POC pCO2 (35-46) mmHg POC pO2 (80-95) mmHg POC HCO3 (19-24) vivi/L POC Total CO2 (24-31) mmol/L POC Base Excess (-9-1.8) vivi/L POC ABG O2 Sat (90-95) % Garett Test O2 Delivery Device Minute Ventilation POC FiO2 % Tidal Volume PEEP Sodium 134 L (136-145) mmol/L Potassium 4.6 (3.5-5.1) mmol/L Chloride 105 (98-107) mmol/L Carbon Dioxide 19 L (21-32) mmol/L Anion Gap 10.0 (3-11) BUN 121 H (7-18) mg/dl Creatinine 4.95 H* D (0.6-1.4) mg/dl Est Cr Clr Drug Dosing 17.0 ml/min Est GFR ( Amer) 13.1 Est GFR (Non-Af Amer) 11.3 BUN/Creatinine Ratio 24.0 H (10-20) Glucose 242 H (70-99) mg/dl POC Glucose (other) 248 H (70-99) mg/dl Calcium 8.2 L (8.5-10.1) mg/dl Phosphorus 8.6 H (2.5-4.9) mg/dl Magnesium 3.0 H (1.8-2.4) mg/dl Total Bilirubin 0.4 (0.2-1) mg/dl AST 17 (15-37) U/L ALT 34 (12-78) U/L Alkaline Phosphatase 90 (45-117) U/L Total Protein 6.5 (6.4-8.2) gm/dl Albumin 1.3 L (3.4-5.0) gm/dl Globulin 5.2 H (2.5-4.0) gm/dl Albumin/Globulin Ratio 0.3 L (0.9-2) 12/14/19 12/14/19 Range/Units 19:38 16:01 WBC (4.8-10.8) K/uL RBC (4.7-6.1) M/uL Hgb (14.0-18.0) g/dL Hct (42-52) % MCV (80-100) fL MCH (25-34) pg MCHC (32-36) g/dL RDW Std Deviation (36.4-46.3) fL RDW Coeff of Josué (11.5-14.5) % Plt Count (130-400) K/uL MPV (7.4-10.4) fL Immature Gran % (Auto) % Neut % (Auto) % Lymph % (Auto) % Dade % (Auto) % Eos % (Auto) % Baso % (Auto) % Immature Gran # (Auto) (0.00-0.02) K/uL Neut # (Auto) (1.4-6.5) K/uL Lymph # (Auto) (1.2-3.4) K/uL Dade # (Auto) (0.11-0.59) K/uL Eos # (Auto) (0-0.5) K/uL Baso # (Auto) (0-0.2) K/uL Absolute Nucleated RBC (0-0) K/uL Nucleated RBC % (auto) % Sample Site POC pH (7.35-7.45) POC pCO2 (35-46) mmHg POC pO2 (80-95) mmHg POC HCO3 (19-24) viiv/L POC Total CO2 (24-31) mmol/L POC Base Excess (-9-1.8) vivi/L POC ABG O2 Sat (90-95) % Garett Test O2 Delivery Device Minute Ventilation POC FiO2 % Tidal Volume PEEP Sodium (136-145) mmol/L Potassium (3.5-5.1) mmol/L Chloride (98-107) mmol/L Carbon Dioxide (21-32) mmol/L Anion Gap (3-11) BUN (7-18) mg/dl Creatinine (0.6-1.4) mg/dl Est Cr Clr Drug Dosing ml/min Est GFR ( Amer) Est GFR (Non-Af Amer) BUN/Creatinine Ratio (10-20) Glucose (70-99) mg/dl POC Glucose (other) 260 H 178 H (70-99) mg/dl Calcium (8.5-10.1) mg/dl Phosphorus (2.5-4.9) mg/dl Magnesium (1.8-2.4) mg/dl Total Bilirubin (0.2-1) mg/dl AST (15-37) U/L ALT (12-78) U/L Alkaline Phosphatase (45-117) U/L Total Protein (6.4-8.2) gm/dl Albumin (3.4-5.0) gm/dl Globulin (2.5-4.0) gm/dl Albumin/Globulin Ratio (0.9-2) Diagnostic Findings Chest x-ray image personally reviewed by me and agree with phone report: XR chest 1V portable CLINICAL HISTORY: Respiratory failure COMPARISON STUDY: 12/13/2019 FINDINGS: r there is an endotracheal tube 4 cm above the isra. There is a nasogastric tube within the stomach. The heart remains enlarged. There are persistent bilateral pulmonary opacities with a lower lung zone predominance. There is mild vascular/interstitial prominence.[ IMPRESSION: 1. Stable cardiomegaly and interstitial prominence 2. Persistent bilateral pulmonary opacities with a lower lung zone predominance. PG Care Time/CCT Total # of Minutes Spent Total Time Spent with Patient: Total time spent is greater than 50% in coordination of care (as documented) at patient's floor/unit and/or counseling patient: Coding Level of Care Code 08193 Subseq Hosp Care Lvl 1 Diagnoses Acute respiratory failure with hypoxia J96.01 ARDS (adult respiratory distress syndrome) J80 Suspected 2019 novel coronavirus infection R68.89 Sepsis A41.9 Bilateral pneumonia J18.9 Lung location: lower lobe of lung Pneumonia type: due to unspecified organism Acute renal failure (ARF) N17.9 Acute renal failure type: unspecified Chronic obstructive pulmonary disease J44.9 Current smoker F17.200 Gastroesophageal reflux disease K21.9 Gout M10.9 Obstructive sleep apnea G47.33 Hyperlipidemia E78.5 Hypertension I10 Diabetes mellitus type II, uncontrolled E11.65 Hyponatremia E87.1 Metabolic encephalopathy G93.41 Rhabdomyolysis M62.82 Ileus K56.7 DVT prophylaxis Z29.9 (1) Acute renal failure (ARF) Acute renal failure type: unspecified Qualified Code(s): N17.9 - Acute kidney failure, unspecified (2) Bilateral pneumonia Lung location: lower lobe of lung Pneumonia type: due to unspecified organism Qualified Code(s): J18.9 - Pneumonia, unspecified organism
[2019-12-15] MEDS: fentaNYL DRIP 1,250 MCG/250 ML BAG IV SCH ×2 (21:45→22:32)
[2019-12-16] MEDS: INSULIN HUMAN REGULAR PER UNIT 5 UNITS in SYRINGE 4.95 ML IV SCH ×6 (00:12→20:39)
[2019-12-16] MEDS: INSULIN ASPART 100 UNITS/ML 3 ML PEN SQ SCH ×6 (00:12→20:40)
[2019-12-16 04:23] LABS: Basophils # (auto) 0.04 K/uL (0-0.2); Basophils % (auto) 0.2 %; Hematocrit (blood only) 36.3 % (42-52); Hemoglobin 12.1 g/dL (14.0-18.0); Immature Granulocytes # (auto) 0.91 K/uL (0.00-0.02); Lymphocytes # (auto) 2.35 K/uL (1.2-3.4); Lymphocytes % (auto) 10.4 %; Mean Corpuscular Hemoglobin 29.2 pg (25-34); Mean Corpuscular Hgb Conc 33.3 g/dL (32-36); Mean Corpuscular Volume 87.5 fL (80-100); Mean Platelet Volume 9.1 fL (7.4-10.4); Monocytes # (auto) 0.66 K/uL (0.11-0.59); Monocytes % (auto) 2.9 %; Neutrophils # (auto) 18.53 K/uL (1.4-6.5); Neutrophils % (auto) 82.5 %; Nucleated RBC # (auto) 0.06 K/uL (0-0); Nucleated RBC % (auto) 0.2 %; Platelet Count 340 K/uL (130-400); RDW Standard Deviation 43.9 fL (36.4-46.3); Red Blood Count 4.15 M/uL (4.7-6.1); White Blood Count 22.49 K/uL (4.8-10.8)
[2019-12-16] MEDS: HEPARIN SOD 5,000 UNIT/0.5 ML VIAL SQ SCH ×3 (04:29→20:40)
[2019-12-16] MEDS: MIDAZOLAM HCL 125 MG/250 ML BAG IV SCH ×2 (04:29→06:04)
[2019-12-16 04:34] LABS: INR 1.4 (0.9-1.1); Prothrombin Time 14.1 Seconds (9.0-12.0)
[2019-12-16 04:40] LABS: Albumin Level 1.5 gm/dl (3.4-5.0); BUN Creatinine Ratio 27.3 (10-20); Calcium 8.4 mg/dl (8.5-10.1); Creatinine Clr Calc Pharmacy 18.8 ml/min; Est GFR (African American) 14.9; Est GFR (Non-African American) 12.9; Magnesium 2.9 mg/dl (1.8-2.4); Potassium 4.9 mmol/L (3.5-5.1)
[2019-12-16 04:43] LABS: Albumin Globulin Ratio 0.3 (0.9-2); Bilirubin,Total 0.5 mg/dl (0.2-1); Globulin 5.3 gm/dl (2.5-4.0); Phosphorus 8.4 mg/dl (2.5-4.9); Total Protein 6.8 gm/dl (6.4-8.2)
[2019-12-16 04:52] LABS: iSTAT Arterial Blood Gas HCO3 21 meg/L (19-24); iSTAT Arterial Blood Gas pCO2 36 mmHg (35-46); iSTAT Arterial Blood Gas pH 7.36 (7.35-7.45); iSTAT Arterial Blood Gas pO2 72 mmHg (80-95); iSTAT Carbon Dioxide 22 mmol/L (24-31); iSTAT Site Art Line
[2019-12-16] MEDS: PEPTAMEN INTENSE VHP 1.0 CAL 1,000 ML BAG OG SCH (06:13)
[2019-12-16] MEDS: DOCUSATE SODIUM SYRUP 100 MG/10 ML UDC NG SCH ×2 (07:45→20:39)
[2019-12-16] MEDS: SENNA 8.8 MG/5 ML UDP NG SCH (07:46)
[2019-12-16] MEDS: methylPREDNISolone 40 MG in SYRINGE 0 ML IV SCH (07:48)
[2019-12-16] MEDS: FAMOTIDINE 20 MG in SYRINGE 3 ML IV SCH (07:48)
[2019-12-16] MEDS: INSULIN GLARGINE SOLOSTAR 100 UNITS/ML 3 ML PEN SC SCH ×2 (08:21→20:40)
--- NOTE | 2019-12-16 09:31 | Critical Care Progress Note ---
Date of Service December 16, 2019 Assessment & Plan (1) ARDS (adult respiratory distress syndrome): Reason Critically Ill: 64-year-old male with acute hypoxic respiratory failure presumptively secondary to 2019 not well coronavirus PLAN: Neuro: Metabolic encephalopathy - RASS currently -4, lighten sedation to -2 - -1 -Uremia/azotemia likely contributing as well -Check ammonia level -Strongly suggestive of multifactorial etiology -Cannot exclude anoxic injury: Would not change room attendant at this time, continue resolving readily reversible causes Sedatives and neuromuscular blockade: -Weaning sedation with fentanyl and Versed Resp: Acute hypoxic respiratory failure -Intubated 12/04: Day 11 -Suspect chronic component: Likely oxygen dependency given significant oxygen requirements which have not improved Acute respiratory alkalosis: Resolved COPD: Suspect end-stage: Documented on January 01, 2019 community care document and ongoing tobacco use Current tobacco use Obstructive sleep apnea: Nightly CPAP Severe acute respiratory distress syndrome: PF ratio: 144: Largely unchanged during hospitalization -Intubation date 12/04: Intubation day 12 -Nonresponder to pronating -Current settings respiratory rate 22, tidal volume 480, PEEP 8, FiO2 50 -Suspect tracheomalacia and necessary PEEP requirement especially in the setting of sleep apnea -Given multiple comorbidities would strongly consider tracheostomy however this would be extremely difficult given COVID precautions -Would also strongly consider terminal extubation as functional baseline status will be extremely poor. CV: Left ventricular concentric hypertrophy Hypotension -Continuously requiring vasoactive medical support despite adequate cortisol and steroid use -Repeat troponin testing undetectable Fluids/Renal: Acute kidney injury -Currently tolerating dialysis albeit with additional vasoactive support -Discussed with nephrology: Would benefit from permacath - plan dialysis today secondary to significant azotemia -Autoimmune work-up unremarkable -Consideration to facilitate additional work-up could include renal biopsy as well as open lung biopsy -I feel both of these tests are high risk with minimal gain in the patient's current state ID: COVID testing: Negative from initial sample -Patient to remain in negative pressure through course of hospitalization Cultures: -Cefepime course of 3 days transition to Rocephin course: 5 days, doxycycline course: 11 days discontinue today, caspofungin course 3 days -Beta glucan negative, blood cultures remain negative, sputum culture unremarkable, urine culture unremarkable -Remains afebrile GI/Nutrition: Supplemental tube feeds: Increase to goal Morbid obesity: BMI 37 Constipation -Reglan every 6, methylnaltrexone, mineral oil x2 -Will consider neostigmine if no bowel movement Heme: Anemia -Suspect viral bone marrow suppression -Type O- DVT prophylaxis: Heparin 5000 twice daily Endocrine: ICU hyperglycemia protocol Diabetes type 2 - poorly controlled, medication adjustments frequently -Pharmacy adjustment Vascular access: -Right arterial line placed December 04 -Left subclavian placed December 04 - left femoral dialysis cath placed 12/13, initial dialysis catheter placed on right femoral discontinued 12/13 secondary to malfunction unable to take dialysis pressures -Surgical evaluation for future permacath needs Code Status: Full code unchanged after COVID test was reported negative Disposition: ICU Given multiple comorbidities, I am concerned of the patient's long-term func tional status. I anticipate at best his pulmonary function has declined to a point that he would likely require significant pulmonary support. If the patient were to suffer a cardiac arrest in the setting of acute kidney failure requiring hemodialysis and continuous vasoactive support, if we were successful in resuscitating the patient I do believe his functional status would be additionally impacted in an adverse fashion. Certainly in the best case scenario at this point the patient would require significant long-term care and quite possibly ventilator dependence. Improvements it would be appropriate to discuss quality of life considerations in proceeding forward with [facility]'s care. (2) Ileus: (3) Morbid obesity with BMI of 40.0-44.9, adult: (4) Hyperglycemia due to type 2 diabetes mellitus: (5) JACQUELINE (acute kidney injury): (6) Anemia: (7) Metabolic encephalopathy: (8) Suspected 2019 novel coronavirus infection: (9) Chronic obstructive pulmonary disease: (10) Obstructive sleep apnea: (11) Hyperlipidemia: (12) Hypertension: (13) Respiratory failure: (14) Acute renal failure (ARF): (15) Decubitus ulcer: (16) Constipation by delayed colonic transit: Admission and Anticipated Discharge Date Admission Date: December 05, 2019 Supervising Physician Co-Signing Physician Notes Patient was discussed in multidisciplinary rounds, I discussed the patient with Dr. Rush of nephrology. I updated the patient's regarding his clinical status. She expressed frustration with not being able to see the patient. I emphasized to discuss visitation and remote viewing options with Chanell Haywood. Patient's requested to have an opinion from Dr. Hang Shearer of Pulmonary. Update 6750: Discussion with multiple critical care providers there was discussion last week of transfer of the patient to [facility]: [facility] center was declining transfer regardless of negative COVID testing. Pulmonary Dr. Hang Shearer will be assuming care of the patient. Subjective No overnight events. Patient remains largely unresponsive with deep sedation. Review of Systems Review of Systems: Unobtainable due to endotracheal tube and Unobtainable due to reduced consciousness Physical Exam Physical Exam: Limited exam secondary to concerns of COVID, I observed this with nursing performing care General: Glascow Coma Scale: Eyes: 1, Verbal 1T, Motor 1, Total 3T. Neuro: Babinski equivocal Head: Atraumatic Ears, nose, mouth and throat: Obscured by endotracheal tube Cardiovascular: Normal peripheral perfusion Gastrointestinal: Protuberant, decreased bowel sounds per nursing however there are tinkles Musculoskeletal: No deformity Results & Data Results & Data ([facility]) Vital Signs (Past 12 Hours) Vital Signs Pulse Resp BP Pulse Ox 12/16/19 09:00 86 87 L 12/16/19 08:53 87 144/74 H 87 L 12/16/19 08:20 85 154/70 H 87 L 12/16/19 08:00 83 86 L 12/16/19 07:20 79 143/69 H 86 L 12/16/19 07:00 74 29 H 88 L 12/16/19 06:20 73 156/79 H 88 L 12/16/19 05:20 62 141/62 H 91 12/16/19 04:20 76 117/58 L 88 L 12/16/19 03:35 67 27 H 89 L 12/16/19 03:20 62 148/79 H 91 12/16/19 02:20 59 L 136/75 92 12/16/19 01:20 62 138/67 91 12/16/19 00:20 56 L 147/76 H 91 12/16/19 00:00 60 12/15/19 23:20 58 L 145/65 H 90 12/15/19 22:50 61 25 H 93 12/15/19 22:20 59 L 134/83 93 12/15/19 21:20 59 L 135/68 92 Laboratory Results 12/16/19 12/16/19 12/16/19 Range/Units 08:15 04:38 04:13 WBC (4.8-10.8) K/uL RBC (4.7-6.1) M/uL Hgb (14.0-18.0) g/dL Hct (42-52) % MCV (80-100) fL MCH (25-34) pg MCHC (32-36) g/dL RDW Std Deviation (36.4-46.3) fL RDW Coeff of Josué (11.5-14.5) % Plt Count (130-400) K/uL MPV (7.4-10.4) fL Immature Gran % (Auto) % Neut % (Auto) % Lymph % (Auto) % [place] % (Auto) % Eos % (Auto) % Baso % (Auto) % Immature Gran # (Auto) (0.00-0.02) K/uL Neut # (Auto) (1.4-6.5) K/uL Lymph # (Auto) (1.2-3.4) K/uL [place] # (Auto) (0.11-0.59) K/uL Eos # (Auto) (0-0.5) K/uL Baso # (Auto) (0-0.2) K/uL Absolute Nucleated RBC (0-0) K/uL Nucleated RBC % (auto) % PT (9.0-12.0) Seconds INR (0.9-1.1) Sample Site Art Line POC pH 7.36 (7.35-7.45) POC pCO2 36 (35-46) mmHg POC pO2 72 L (80-95) mmHg POC HCO3 21 (19-24) vivi/L POC Total CO2 22 L (24-31) mmol/L POC Base Excess -5.0 (-9-1.8) vivi/L POC ABG O2 Sat 94.0 (90-95) % Garett Test NA O2 Delivery Device Ventilator POC O2 Rate 22 Minute Ventilation 12.2 Tidal Volume 480 PEEP 5 Sodium (136-145) mmol/L Potassium (3.5-5.1) mmol/L Chloride (98-107) mmol/L Carbon Dioxide (21-32) mmol/L Anion Gap (3-11) BUN (7-18) mg/dl Creatinine (0.6-1.4) mg/dl Est Cr Clr Drug Dosing ml/min Est GFR ( Amer) Est GFR (Non-Af Amer) BUN/Creatinine Ratio (10-20) Glucose (70-99) mg/dl POC Glucose (other) 153 H 170 H (70-99) mg/dl Calcium (8.5-10.1) mg/dl Phosphorus (2.5-4.9) mg/dl Magnesium (1.8-2.4) mg/dl Total Bilirubin (0.2-1) mg/dl AST (15-37) U/L ALT (12-78) U/L Alkaline Phosphatase (45-117) U/L Total Protein (6.4-8.2) gm/dl Albumin (3.4-5.0) gm/dl Globulin (2.5-4.0) gm/dl Albumin/Globulin Ratio (0.9-2) 12/16/19 12/16/19 12/16/19 Range/Units 04:09 04:09 04:09 WBC 22.49 H (4.8-10.8) K/uL RBC 4.15 L (4.7-6.1) M/uL Hgb 12.1 L (14.0-18.0) g/dL Hct 36.3 L (42-52) % MCV 87.5 (80-100) fL MCH 29.2 (25-34) pg MCHC 33.3 (32-36) g/dL RDW Std Deviation 43.9 (36.4-46.3) fL RDW Coeff of Josué 14.0 (11.5-14.5) % Plt Count 340 (130-400) K/uL MPV 9.1 (7.4-10.4) fL Immature Gran % (Auto) 4.0 % Neut % (Auto) 82.5 % Lymph % (Auto) 10.4 % [place] % (Auto) 2.9 % Eos % (Auto) 0.0 % Baso % (Auto) 0.2 % Immature Gran # (Auto) 0.91 H (0.00-0.02) K/uL Neut # (Auto) 18.53 H (1.4-6.5) K/uL Lymph # (Auto) 2.35 (1.2-3.4) K/uL [place] # (Auto) 0.66 H (0.11-0.59) K/uL Eos # (Auto) 0.00 (0-0.5) K/uL Baso # (Auto) 0.04 (0-0.2) K/uL Absolute Nucleated RBC 0.06 H (0-0) K/uL Nucleated RBC % (auto) 0.2 % PT 14.1 H (9.0-12.0) Seconds INR 1.4 H (0.9-1.1) Sample Site POC pH (7.35-7.45) POC pCO2 (35-46) mmHg POC pO2 (80-95) mmHg POC HCO3 (19-24) vivi/L POC Total CO2 (24-31) mmol/L POC Base Excess (-9-1.8) vivi/L POC ABG O2 Sat (90-95) % Garett Test O2 Delivery Device POC O2 Rate Minute Ventilation Tidal Volume PEEP Sodium 136 (136-145) mmol/L Potassium 4.9 (3.5-5.1) mmol/L Chloride 103 (98-107) mmol/L Carbon Dioxide 21 (21-32) mmol/L Anion Gap 12.0 H (3-11) BUN 121 H (7-18) mg/dl Creatinine 4.44 H D (0.6-1.4) mg/dl Est Cr Clr Drug Dosing 18.8 ml/min Est GFR ( Amer) 14.9 Est GFR (Non-Af Amer) 12.9 BUN/Creatinine Ratio 27.3 H (10-20) Glucose 184 H (70-99) mg/dl POC Glucose (other) (70-99) mg/dl Calcium 8.4 L (8.5-10.1) mg/dl Phosphorus 8.4 H (2.5-4.9) mg/dl Magnesium 2.9 H (1.8-2.4) mg/dl Total Bilirubin 0.5 (0.2-1) mg/dl AST 20 (15-37) U/L ALT 32 (12-78) U/L Alkaline Phosphatase 95 (45-117) U/L Total Protein 6.8 (6.4-8.2) gm/dl Albumin 1.5 L (3.4-5.0) gm/dl Globulin 5.3 H (2.5-4.0) gm/dl Albumin/Globulin Ratio 0.3 L (0.9-2) 12/16/19 12/15/19 12/15/19 Range/Units 00:09 20:11 15:37 WBC (4.8-10.8) K/uL RBC (4.7-6.1) M/uL Hgb (14.0-18.0) g/dL Hct (42-52) % MCV (80-100) fL MCH (25-34) pg MCHC (32-36) g/dL RDW Std Deviation (36.4-46.3) fL RDW Coeff of Josué (11.5-14.5) % Plt Count (130-400) K/uL MPV (7.4-10.4) fL Immature Gran % (Auto) % Neut % (Auto) % Lymph % (Auto) % [place] % (Auto) % Eos % (Auto) % Baso % (Auto) % Immature Gran # (Auto) (0.00-0.02) K/uL Neut # (Auto) (1.4-6.5) K/uL Lymph # (Auto) (1.2-3.4) K/uL [place] # (Auto) (0.11-0.59) K/uL Eos # (Auto) (0-0.5) K/uL Baso # (Auto) (0-0.2) K/uL Absolute Nucleated RBC (0-0) K/uL Nucleated RBC % (auto) % PT (9.0-12.0) Seconds INR (0.9-1.1) Sample Site POC pH (7.35-7.45) POC pCO2 (35-46) mmHg POC pO2 (80-95) mmHg POC HCO3 (19-24) vivi/L POC Total CO2 (24-31) mmol/L POC Base Excess (-9-1.8) vivi/L POC ABG O2 Sat (90-95) % Garett Test O2 Delivery Device POC O2 Rate Minute Ventilation Tidal Volume PEEP Sodium (136-145) mmol/L Potassium (3.5-5.1) mmol/L Chloride (98-107) mmol/L Carbon Dioxide (21-32) mmol/L Anion Gap (3-11) BUN (7-18) mg/dl Creatinine (0.6-1.4) mg/dl Est Cr Clr Drug Dosing ml/min Est GFR ( Amer) Est GFR (Non-Af Amer) BUN/Creatinine Ratio (10-20) Glucose (70-99) mg/dl POC Glucose (other) 218 H 235 H 219 H (70-99) mg/dl Calcium (8.5-10.1) mg/dl Phosphorus (2.5-4.9) mg/dl Magnesium (1.8-2.4) mg/dl Total Bilirubin (0.2-1) mg/dl AST (15-37) U/L ALT (12-78) U/L Alkaline Phosphatase (45-117) U/L Total Protein (6.4-8.2) gm/dl Albumin (3.4-5.0) gm/dl Globulin (2.5-4.0) gm/dl Albumin/Globulin Ratio (0.9-2) Diagnostic Findings I reviewed the chest x-ray dated 12/15/2019 as well as the radiology report. No significant change in last 2448 hrs., stable cardiomegaly and interstitial prominences, persistent bilateral pulmonary opacities with lower lung zone predominance. I reviewed the echocardiogram obtained 12/11/2019: -Borderline concentric left ventricular hypertrophy -Normal IVC collapsibility. -Right ventricle not well visualized. Coding Level of Care Code Critical Care ea addt'l 30 min Diagnoses ARDS (adult respiratory distress syndrome) J80 Ileus K56.7 Morbid obesity with BMI of 40.0-44.9, adult E66.01; Z68.41 Hyperglycemia due to type 2 diabetes mellitus E11.65 JACQUELINE (acute kidney injury) N17.9 Anemia D64.9 Metabolic encephalopathy G93.41 Suspected 2019 novel coronavirus infection R68.89 Chronic obstructive pulmonary disease J44.9 Obstructive sleep apnea G47.33 Hyperlipidemia E78.5 Hypertension I10 Respiratory failure J96.01 Chronicity: acute Respiratory failure complication: hypoxia Acute renal failure (ARF) N17.9 Acute renal failure type: unspecified Decubitus ulcer L89.90 Constipation by delayed colonic transit K59.01 Time Spent (min) 95 Comment I have personally spent 95 minutes of critical care time in the direct management of this patient. This is a life/limb threatening event. This includ es time spent evaluating patient, direct bedside care, chart review, placing orders, interpretation of diagnostic studies, discussion with consultants, patient, and/or family members regarding treatment decisions, as well as other required patient management activities. This time is exclusive of all separately billable procedures, and teaching time and separate from and in addition to any other critical care service time. (1) Acute renal failure (ARF) Acute renal failure type: unspecified Qualified Code(s): N17.9 - Acute kidney failure, unspecified (2) Respiratory failure Chronicity: acute Respiratory failure complication: hypoxia Qualified Code(s): J96.01 - Acute respiratory failure with hypoxia
[2019-12-16] MEDS ORDERED: HEPARIN SOD (PORCINE) 1000 UNIT/ML 10 ML VIAL IV ONE (09:48)
[2019-12-16] MEDS ORDERED: SODIUM CHLORIDE 0.9% 1000ML 1,000 ML IV PRN (09:48)
--- NOTE | 2019-12-16 09:53 | Nephrology Progress Note ---
Date of Service December 16, 2019 Assessment & Plan (1) JACQUELINE (acute kidney injury): -- Baseline Cr 1.4. JACQUELINE due to ischemic ATN. Renal US negative for obstruction. Urinalysis w/ 2+ protein, microscopic hematuria and pyuria. Vasculitis evaluation was negative -- UO improving. Will monitor -- Azotemia likely related to high catabolic rate and steroid administration. BUN remains elevated despite HD yesterday -- Will provide HD today for correction of azotemia, acidemia and attempt 1 L UF. Orders were entered into EMR and HD RN notified (2) ARDS (adult respiratory distress syndrome): -- [employer] and COVID testing negative. Etiology of ARDS unclear -- Steroid therapy is being tapered. FiO2 has been reduced to 50% with PEEP 5 -- Attempt 1L UF w/ HD today Subjective Mr. Hinkle was seen in the ICU. Examination withheld due to COVID-19 pandemic. Cause of ARDS is not yet defined. Patient remains on droplet precautions. Plan of care was reviewed w/ ICU team this morning. Mr. Hinkle was dialyzed yesterday for 3 hours w/ 1700 cc UF. Catheter was run reversed due to poor arterial flow. Levophed is being weaned to off. FiO2 has been reduced to 50% w/ PEEP 5. Patient produced 1400 cc UO yesterday. BUN remains elevated and patient has metabolic acidosis which may impede weaning from ventilator. ICU team is concerned about patient's congnitive and functional status due to prolonged intubation and ICU stay. Review of Systems Review of Systems: Unobtainable due to endotracheal tube Physical Exam Physical Exam: PE not performed due to COVID 19 pandemic. Cause of ARDS not yet fully defined. Remains on droplet precautions Results & Data Vital Signs (Past 12 Hours) Vital Signs Pulse Resp BP Pulse Ox 12/16/19 09:00 86 87 L 12/16/19 08:53 87 144/74 H 87 L 12/16/19 08:20 85 154/70 H 87 L 12/16/19 08:00 83 86 L 12/16/19 07:20 79 143/69 H 86 L 12/16/19 07:00 74 29 H 88 L 12/16/19 06:20 73 156/79 H 88 L 12/16/19 05:20 62 141/62 H 91 12/16/19 04:20 76 117/58 L 88 L 12/16/19 03:35 67 27 H 89 L 12/16/19 03:20 62 148/79 H 91 12/16/19 02:20 59 L 136/75 92 12/16/19 01:20 62 138/67 91 12/16/19 00:20 56 L 147/76 H 91 12/16/19 00:00 60 12/15/19 23:20 58 L 145/65 H 90 12/15/19 22:50 61 25 H 93 12/15/19 22:20 59 L 134/83 93 Laboratory Results Laboratory Tests 12/16/19 12/16/19 04:09 04:09 WBC 22.49 H Hgb 12.1 L Hct 36.3 L Sodium 136 Potassium 4.9 Chloride 103 Carbon Dioxide 21 BUN 121 H Creatinine 4.44 H D Glucose 184 H PG Care Time/CCT Total # of Minutes Spent Total Time Spent with Patient: Total time spent is greater than 50% in coordination of care (as documented) at patient's floor/unit and/or counseling patient: Coding Level of Care Code 74991 Subseq Hosp Care Lvl 3 Diagnoses JACQUELINE (acute kidney injury) N17.9 ARDS (adult respiratory distress syndrome) J80
[2019-12-16] MEDS ORDERED: HEPARIN SOD (PORCINE) 1000 UNIT/ML 10 ML VIAL IV SCH (10:00)
[2019-12-16] MEDS: METHYLNALTREXONE BROMIDE 12 MG/0.6 ML VIAL SQ SCH (11:22)
[2019-12-16] MEDS: METOCLOPRAMIDE HCL INJ 5 MG/ML 2 ML VIAL IV SCH ×3 (11:22→22:44)
[2019-12-16] MEDS: MINERAL OIL 30 ML UDC PO PRN (11:24)
--- NOTE | 2019-12-16 16:06 | Hospitalist Progress Note ---
Date of Service December 16, 2019 Assessment & Plan (1) Acute respiratory failure with hypoxia: Admitted to ICU. B/l pneumonia on chest x-ray, CXR with bilat peripheral infiltrates, slightly improved on chest x-ray 12/10, CXR 12/12 similar and chest x-ray again on 12/14 similar with pleural effusions Clinical picture highly concerning for COVID-19 (normal wbc count, lymphopenia, elevated AST,elevated LDH, elevated d-dimer, cxr findings, etc). Although two nasopharyngeal tests have come back negative for [id number] negative as of 12/07 from [facility], and [facility] COVID test now also negative from 12/04 no plans for further testing as this would not change treatment or prognosis at this time Profoundly hypoxic upon presentation-intubated in ED -Was in prone position 12/04 for 16 hours, now supine again -Continues on vent, not ready yet for extubation, difficult time with altered mental status Dr. Goel discussed with that there are two options, either extubate and see how he does or tracheostomy either way, the patient is looking at reduced quality of life, likely terminologist support and care requesting a second opinion on options, Dr. Shearer will call her to discuss the case remains on low-dose Versed and fentanyl for sedation -Continues with hemodialysis to remove volume and help correct acidosis, treat azotemia Continues to be with a very guarded prognosis with worsening renal function requiring hemodialysis, continued need for mechanical ventilation as discussed above, at this point the options are extubation vs tracheostomy (2) ARDS (adult respiratory distress syndrome): as above, unclear etiology, COVID testing was negative from both [place] dept of health and [facility] -started trial of IV steroids on 12/10-continue to taper per pulmonary/ICU (3) Suspected 2019 novel coronavirus infection: see above in "acute hypoxic resp failure" biofire negative x 2 flu negative COVID-19 negative on 12/07 from [facility] and also now on [facility] COVID test -Unclear etiology-> continue airborne precautions -pulmonary/critical care team has decided not to repeat tracheal aspirate sample for COVID-19 testing as it would not pattern changer and repairer at this time (4) Sepsis: Secondary to pneumonia -continue supportive care Fevers resolved since 12/11 still requiring low dose Levophed (5) Bilateral pneumonia: see above blood cx's NGTD Sputum cx no growth and repeat SPutum cx again with normal monie Legionella urine antigen negative broad spectrum antibiotics given with Rocephin and doxy-has now completed a course of rocephin; doxy continues -was on IV Caspofungin empirically--> now Fungitell negative--> dcd Caspo Chest x-ray findings as above -Follow chest x-ray as per pulmonary (6) Acute renal failure (ARF): Secondary to dehydration/sepsis/ATN Normosol hydration given initially Became oliguric, creatinine worsening daily despite ultrafiltration, with hyperkalemia now resolved with dialysis Now with metabolic acidosis which is persisting -made 500mL urine on straight cath on 12/12 Now continues on hemodialysis, started 12/07, HD catheter discontinued from [facility] and replaced in left femoral 12/13 -continue to HOLD MIKAEL and HCTZ -avoid NSAIDs -vasculitis workup negative Appreciate nephrology consultation for hemodialysis management of renal failure- for dialysis again today 12/15 with goal of ultrafiltration of 1 L and high bicarbonate bath -Follow BMP in the morning -Follow urine output (7) Chronic obstructive pulmonary disease: by history, but not on inhalers at home. (8) Current smoker: 50+ years of smoking per patient (9) Gastroesophageal reflux disease: Pepcid once daily which is renal dosing (10) Gout: no recent issues not on prophylaxis (11) Obstructive sleep apnea: noted (12) Hyperlipidemia: hold STATIN-however would consider restarting this as it can have some anti-inflammatory effect anecdotally in the setting of a massive inflammatory state (13) Hypertension: HOLDING anti-hypertensives (HCTZ, MIKAEL, norvasc, etc) for hypotension--> still requiring levophed but tapering almost completely off (14) Diabetes mellitus type II, uncontrolled: hyperglycemic ICU protocol, hyperglycemia worsened with starting IV steroids-pharmacy has intensified the insulin regimen and steroids are being tapered down-glucose is now improved defer to pharmacy (15) Hyponatremia: likely due to dehydration/volume depletion and chronic HCTZ use on admission, but now is likely due to volume overload from renal failure -To be managed with dialysis-improved (16) Metabolic encephalopathy: multifactorial - sepsis, pneumonia, possible COVID-19, hyponatremia, hypoxia, etc supportive care (17) Rhabdomyolysis: CPK elevated at 2449 and now down to 461 Likely secondary to sepsis/infection (18) Ileus: He has not had a bowel movement throughout his hospital stay He has been given lactulose on several occasions, continues on docusate 100 mg twice daily per OG tube as well as sennosides 8.8 mg once daily -His feeds are only on trickle Per moss bleacher physical exam, the patient's abdomen is soft -Continue to monitor (19) DVT prophylaxis: SQ Heparin FEN-patient on tube feeds at [facility] Dispo-remains in critical condition with very poor prognosis for recovery with multisystem organ failure FULL CODE Continued stay in ICU Admission and Anticipated Discharge Date Admission Date: December 05, 2019 Subjective patient remains ventilator dependent on day 12 also remains on hemodialysis, plan for HD with UF of 1L planned reviewed the chart, reviewed labs received phone call that patient's unhappy, requesting another opinion referred to the pulmonary/ICU department as I am not seeing the patient directly nor am I trained in pulm/critical care to be able to give an opinion Review of Systems Review of Systems: Unobtainable due to endotracheal tube and Unobtainable due to reduced consciousness Physical Exam Physical Exam: did not examine, did not enter room due to airborne precautions and wanting to preserve PPE, the moss bleacher examined patient Results & Data Results & Data ([facility]) Vital Signs (Past 12 Hours) Vital Signs Temp Pulse Pulse Resp BP Pulse Ox 12/16/19 14:35 105 H 20 91 12/16/19 14:20 101 H 124/77 91 12/16/19 14:09 106 H 123/71 91 12/16/19 14:00 105 H 92 12/16/19 13:45 37.1 C 98 H 98 H 125/67 12/16/19 13:20 101 H 125/67 92 12/16/19 13:00 102 H 92 12/16/19 12:21 87 92 12/16/19 12:20 88 134/70 92 12/16/19 12:16 89 136/68 92 12/16/19 12:00 74 91 12/16/19 11:19 72 121/72 92 12/16/19 11:00 77 91 12/16/19 10:30 77 18 91 12/16/19 10:19 75 132/74 91 12/16/19 10:00 79 91 12/16/19 09:20 82 126/74 89 L 12/16/19 09:15 84 19 89 L 12/16/19 09:00 86 87 L 12/16/19 08:53 87 144/74 H 87 L 12/16/19 08:20 85 154/70 H 87 L 12/16/19 08:00 83 86 L 12/16/19 07:20 79 143/69 H 86 L 12/16/19 07:00 74 29 H 88 L 12/16/19 06:20 73 156/79 H 88 L 12/16/19 05:20 62 141/62 H 91 12/16/19 04:20 76 117/58 L 88 L Laboratory Results Laboratory Results - last 24 hr 12/15/19 12/15/19 12/16/19 15:37 20:11 00:09 WBC RBC Hgb Hct MCV MCH MCHC RDW Std Deviation RDW Coeff of Josué Plt Count MPV Immature Gran % (Auto) Neut % (Auto) Lymph % (Auto) [place] % (Auto) Eos % (Auto) Baso % (Auto) Immature Gran # (Auto) Neut # (Auto) Lymph # (Auto) [place] # (Auto) Eos # (Auto) Baso # (Auto) Absolute Nucleated RBC Nucleated RBC % (auto) PT INR Sample Site POC pH POC pCO2 POC pO2 POC HCO3 POC Total CO2 POC Base Excess POC ABG O2 Sat Garett Test O2 Delivery Device POC O2 Rate Minute Ventilation Tidal Volume PEEP Sodium Potassium Chloride Carbon Dioxide Anion Gap BUN Creatinine Est Cr Clr Drug Dosing Est GFR ( Amer) Est GFR (Non-Af Amer) BUN/Creatinine Ratio Glucose POC Glucose (other) 219 H 235 H 218 H Calcium Phosphorus Magnesium Total Bilirubin AST ALT Alkaline Phosphatase Total Protein Albumin Globulin Albumin/Globulin Ratio 12/16/19 12/16/19 12/16/19 04:09 04:09 04:09 WBC 22.49 H RBC 4.15 L Hgb 12.1 L Hct 36.3 L MCV 87.5 MCH 29.2 MCHC 33.3 RDW Std Deviation 43.9 RDW Coeff of Josué 14.0 Plt Count 340 MPV 9.1 Immature Gran % (Auto) 4.0 Neut % (Auto) 82.5 Lymph % (Auto) 10.4 [place] % (Auto) 2.9 Eos % (Auto) 0.0 Baso % (Auto) 0.2 Immature Gran # (Auto) 0.91 H Neut # (Auto) 18.53 H Lymph # (Auto) 2.35 [place] # (Auto) 0.66 H Eos # (Auto) 0.00 Baso # (Auto) 0.04 Absolute Nucleated RBC 0.06 H Nucleated RBC % (auto) 0.2 PT 14.1 H INR 1.4 H Sample Site POC pH POC pCO2 POC pO2 POC HCO3 POC Total CO2 POC Base Excess POC ABG O2 Sat Garett Test O2 Delivery Device POC O2 Rate Minute Ventilation Tidal Volume PEEP Sodium 136 Potassium 4.9 Chloride 103 Carbon Dioxide 21 Anion Gap 12.0 H BUN 121 H Creatinine 4.44 H D Est Cr Clr Drug Dosing 18.8 Est GFR ( Amer) 14.9 Est GFR (Non-Af Amer) 12.9 BUN/Creatinine Ratio 27.3 H Glucose 184 H POC Glucose (other) Calcium 8.4 L Phosphorus 8.4 H Magnesium 2.9 H Total Bilirubin 0.5 AST 20 ALT 32 Alkaline Phosphatase 95 Total Protein 6.8 Albumin 1.5 L Globulin 5.3 H Albumin/Globulin Ratio 0.3 L 12/16/19 12/16/19 12/16/19 04:13 04:38 08:15 WBC RBC Hgb Hct MCV MCH MCHC RDW Std Deviation RDW Coeff of Josué Plt Count MPV Immature Gran % (Auto) Neut % (Auto) Lymph % (Auto) [place] % (Auto) Eos % (Auto) Baso % (Auto) Immature Gran # (Auto) Neut # (Auto) Lymph # (Auto) [place] # (Auto) Eos # (Auto) Baso # (Auto) Absolute Nucleated RBC Nucleated RBC % (auto) PT INR Sample Site Art Line POC pH 7.36 POC pCO2 36 POC pO2 72 L POC HCO3 21 POC Total CO2 22 L POC Base Excess -5.0 POC ABG O2 Sat 94.0 Garett Test NA O2 Delivery Device Ventilator POC O2 Rate 22 Minute Ventilation 12.2 Tidal Volume 480 PEEP 5 Sodium Potassium Chloride Carbon Dioxide Anion Gap BUN Creatinine Est Cr Clr Drug Dosing Est GFR ( Amer) Est GFR (Non-Af Amer) BUN/Creatinine Ratio Glucose POC Glucose (other) 170 H 153 H Calcium Phosphorus Magnesium Total Bilirubin AST ALT Alkaline Phosphatase Total Protein Albumin Globulin Albumin/Globulin Ratio 12/16/19 12:06 WBC RBC Hgb Hct MCV MCH MCHC RDW Std Deviation RDW Coeff of Josué Plt Count MPV Immature Gran % (Auto) Neut % (Auto) Lymph % (Auto) [place] % (Auto) Eos % (Auto) Baso % (Auto) Immature Gran # (Auto) Neut # (Auto) Lymph # (Auto) [place] # (Auto) Eos # (Auto) Baso # (Auto) Absolute Nucleated RBC Nucleated RBC % (auto) PT INR Sample Site POC pH POC pCO2 POC pO2 POC HCO3 POC Total CO2 POC Base Excess POC ABG O2 Sat Garett Test O2 Delivery Device POC O2 Rate Minute Ventilation Tidal Volume PEEP Sodium Potassium Chloride Carbon Dioxide Anion Gap BUN Creatinine Est Cr Clr Drug Dosing Est GFR ( Amer) Est GFR (Non-Af Amer) BUN/Creatinine Ratio Glucose POC Glucose (other) 169 H Calcium Phosphorus Magnesium Total Bilirubin AST ALT Alkaline Phosphatase Total Protein Albumin Globulin Albumin/Globulin Ratio Medications Administered Current Inpatient Medications Dextrose (Dextrose 50%) 25 - 50 ml IV UD PRN; Protocol PRN Reason: Hypoglycemia Protocol Stop: 01/04/20 17:29 Docusate Sodium (Colace) 100 mg NG BID KEARA Stop: 01/10/20 22:14 Last Admin: 12/16/19 07:45 Dose: 100 mg Documented by: Fentanyl Citrate (Fentanyl Bolus From Bag) 50 mcg IV Q60M PRN PRN Reason: Pain or Agitation Stop: 12/19/19 13:06 Last Admin: 12/15/19 15:36 Dose: 50 mcg Documented by: Glucagon (Glucagen) 1 mg IM UD PRN; Protocol PRN Reason: Hypoglycemia Protocol Stop: 01/04/20 17:29 Glucose (Glucose 40%) 15 - 30 gm PO UD PRN; Protocol PRN Reason: Hypoglycemia Protocol Stop: 01/04/20 17:29 Glucose (Dex4 Glucose) 4 - 8 tabs PO UD PRN; Protocol PRN Reason: Hypoglycemia Protocol Stop: 01/04/20 17:29 Glycopyrrolate (Robinul) 0.1 mg IV Q6 PRN PRN Reason: bradycardia Stop: 01/13/20 16:26 Heparin Sodium (Beef Lung) (Heparin Sod 10 Unit/Ml Flush) 5 ml FLUSH PRN PRN PRN Reason: Flush Stop: 01/04/20 22:56 Last Admin: 12/06/19 09:10 Dose: 5 ml Documented by: Heparin Sodium (Porcine) (Heparin Sodium (Porcine)) 5,000 units SQ Q8H KEARA Stop: 01/11/20 11:59 Last Admin: 12/16/19 11:24 Dose: 5,000 units Documented by: Fentanyl Citrate (Fentanyl Drip) 1,250 mcg in 250 mls @ 10 mls/hr IV .Q24H KEARA; Protocol Stop: 12/19/19 13:14 Last Titration: 12/16/19 07:08 Dose: 50 mcg/hr, 10 mls/hr Documented by: Midazolam HCl (Versed) 125 mg in 250 mls @ 6 mls/hr IV .Q24H [facility]; Protocol Stop: 01/04/20 13:14 Last Titration: 12/16/19 12:30 Dose: 3 mg/hr, 6 mls/hr Documented by: Famotidine 20 mg/ Syringe 5 mls @ 2.5 mls/min IV DAILY@0900 [facility] Stop: 01/06/20 08:59 Last Admin: 12/16/19 07:48 Dose: 2.5 mls/min Documented by: Norepinephrine Bitartrate 16 (mg/ Dextrose) 516 mls @ 6.322 mls/hr IV .Q24H [facility]; Protocol Stop: 01/05/20 03:44 Last Titration: 12/16/19 14:00 Dose: 0.03 mcg/kg/min, 6.3 mls/hr Documented by: Insulin Human Regular 5 units/ (Syringe) 5 mls @ 30 mls/min IV Q4 [facility] Stop: 01/13/20 11:59 Last Admin: 12/16/19 15:47 Dose: Not Given Documented by: Methylprednisolone 40 mg/ (Syringe) 0.64 mls @ 1.5 mls/min IV DAILY [facility] Stop: 01/15/20 08:59 Last Admin: 12/16/19 07:48 Dose: 1.5 mls/min Documented by: Insulin Aspart (Novolog Flexpen) 0 units SQ Q4 [facility]; Protocol Stop: 01/07/20 12:14 Last Admin: 12/16/19 15:48 Dose: 11 units Documented by: Insulin Glargine (Lantus Solostar Pen) 0 units SC BID@0800,2000 [facility]; Protocol Stop: 01/15/20 19:59 Methylnaltrexone Carlotta (Relistor) 12 mg SQ Q2D [facility] Stop: 12/18/19 10:01 Last Admin: 12/16/19 11:22 Dose: 12 mg Documented by: Metoclopramide HCl (Reglan) 10 mg IV Q6H KEARA Stop: 12/18/19 09:59 Last Admin: 12/16/19 15:35 Dose: 10 mg Documented by: Midazolam HCl (Versed Bolus From Bag) 2 mg IV Q60M PRN PRN Reason: Sedation Stop: 01/04/20 13:06 Last Admin: 12/15/19 15:37 Dose: 2 mg Documented by: Mineral Oil (Mineral Oil) 60 ml PO BID PRN PRN Reason: Constipation Stop: 12/17/19 09:34 Last Admin: 12/16/19 11:24 Dose: 60 ml Documented by: Miscellaneous (Carbohydrates For Hypoglycemia) 15 - 30 gm PO UD PRN PRN Reason: Hypoglycemia Treatment Stop: 01/04/20 17:29 Miscellaneous Information (Consult Glycemic Management Pharmacy) 1 ea N/A UD PRN PRN Reason: Consult Stop: 01/07/20 12:04 Multi-Ingredient Cream (Lacri-Lube) 1 appln OP Q4H PRN PRN Reason: Undecided Stop: 01/04/20 16:44 Last Admin: 12/11/19 08:02 Dose: 1 appln Documented by: Multivitamins/Minerals (Cerovite Liquid) 15 ml PO QAM KEARA Stop: 01/16/20 08:59 Nutritional Formula (Peptamen Intense Vhp 1.0 Kurt) 1,000 ml OG UD [facility]; Protocol Stop: 01/08/20 11:14 Last Admin: 12/16/19 06:13 Dose: 1,000 ml Documented by: Sennosides (Senokot) 8.8 mg NG QAM KEARA Stop: 01/12/20 08:59 Last Admin: 12/16/19 07:46 Dose: 8.8 mg Documented by: PG Care Time/CCT Total # of Minutes Spent Total Time Spent with Patient: Total time spent is greater than 50% in coordination of care (as documented) at patient's floor/unit and/or counseling patient: Coding Level of Care Code None Diagnoses Acute respiratory failure with hypoxia J96.01 ARDS (adult respiratory distress syndrome) J80 Suspected 2019 novel coronavirus infection R68.89 Sepsis A41.9 Bilateral pneumonia J18.9 Lung location: lower lobe of lung Pneumonia type: due to unspecified organism Acute renal failure (ARF) N17.9 Acute renal failure type: unspecified Chronic obstructive pulmonary disease J44.9 Current smoker F17.200 Gastroesophageal reflux disease K21.9 Gout M10.9 Obstructive sleep apnea G47.33 Hyperlipidemia E78.5 Hypertension I10 Diabetes mellitus type II, uncontrolled E11.65 Hyponatremia E87.1 Metabolic encephalopathy G93.41 Rhabdomyolysis M62.82 Ileus K56.7 DVT prophylaxis Z29.9 (1) Bilateral pneumonia Lung location: lower lobe of lung Pneumonia type: due to unspecified organism Qualified Code(s): J18.9 - Pneumonia, unspecified organism (2) Acute renal failure (ARF) Acute renal failure type: unspecified Qualified Code(s): N17.9 - Acute kidney failure, unspecified
[2019-12-16] MEDS: NOREPINEPHRINE BIT INJ 16 MG in DEXTROSE 5% 500 ML IV SCH (18:27)
[2019-12-16] MEDS: fentaNYL DRIP 1,250 MCG/250 ML BAG IV SCH (23:10)
[2019-12-17] MEDS: INSULIN ASPART 100 UNITS/ML 3 ML PEN SQ SCH ×6 (00:15→20:53)
[2019-12-17] MEDS: INSULIN HUMAN REGULAR PER UNIT 5 UNITS in SYRINGE 4.95 ML IV SCH ×6 (00:17→20:55)
[2019-12-17] MEDS: HEPARIN SOD 5,000 UNIT/0.5 ML VIAL SQ SCH ×3 (04:22→20:31)
[2019-12-17] MEDS: METOCLOPRAMIDE HCL INJ 5 MG/ML 2 ML VIAL IV SCH ×2 (04:22→09:31)
[2019-12-17 04:24] LABS: Mean Corpuscular Hgb Conc 34.2 g/dL (32-36); Mean Platelet Volume 9.4 fL (7.4-10.4); Nucleated RBC # (auto) 0.05 K/uL (0-0); Nucleated RBC % (auto) 0.2 %; Platelet Count 273 K/uL (130-400)
[2019-12-17 04:30] LABS: Hematocrit (blood only) 35.1 % (42-52); Mean Corpuscular Hemoglobin 30.5 pg (25-34); Mean Corpuscular Volume 89.3 fL (80-100); RDW Coefficient of Variation 14.2 % (11.5-14.5); RDW Standard Deviation 45.1 fL (36.4-46.3); Red Blood Count 3.93 M/uL (4.7-6.1); White Blood Count 23.57 K/uL (4.8-10.8)
[2019-12-17 04:55] LABS: Albumin Globulin Ratio 0.3 (0.9-2); Albumin Level 1.6 gm/dl (3.4-5.0); BUN Creatinine Ratio 32.2 (10-20); Bilirubin,Total 0.5 mg/dl (0.2-1); Calcium 8.6 mg/dl (8.5-10.1); Creatinine Clr Calc Pharmacy 21.8 ml/min; Est GFR (African American) 17.6; Est GFR (Non-African American) 15.2; Globulin 5.3 gm/dl (2.5-4.0); Magnesium 2.9 mg/dl (1.8-2.4); Phosphorus 8.4 mg/dl (2.5-4.9); Potassium 5.9 mmol/L (3.5-5.1); Total Protein 6.9 gm/dl (6.4-8.2)
[2019-12-17 05:08] LABS: ALC (manual) 1.01 K/uL (1.2-3.4); ANC (manual) 20.72 K/uL (1.4-6.5); Lymphocytes # (manual) 1.01 K/uL (1.2-3.4); Lymphocytes % (manual) 4.3 %; Monocytes # (manual) 1.63 K/uL (0.11-0.59); Monocytes % (manual) 6.9 %; Myelocytes # (manual) 0.21 K/uL (0-0); Myelocytes % (manual) 0.9 %; Neutrophils # (manual) 20.72 K/uL (1.4-6.5); Neutrophils % (manual) 87.9 %; RBC Morphology Unremarkable
[2019-12-17 05:19] LABS: iSTAT Art Bld Gas pCO2 Correct 43 mmHg (35-46); iSTAT Art Bld Gas pH Corrected 7.365 (7.35-7.45); iSTAT Arterial Blood Gas HCO3 24 meg/L (19-24); iSTAT Arterial Blood Gas pCO2 42 mmHg (35-46); iSTAT Arterial Blood Gas pH 7.37 (7.35-7.45); iSTAT Arterial Blood Gas pO2 74 mmHg (80-95); iSTAT Arterial Blood Gas pO2 C 76; iSTAT Carbon Dioxide 25 mmol/L (24-31); iSTAT Hematocrit 33 % (42-52); iSTAT Hemoglobin 11.2 g/dl (14.0-18.0); iSTAT Potassium 5.8 mmol/L (3.3-5.0); iSTAT Site Art Line; iSTAT Sodium 134 mmol/L (135-144)
[2019-12-17 05:25] LABS: Fibrinogen > 860 mg/dl (184-400)
[2019-12-17] MEDS ORDERED: DEXTROSE 50% 50 ML SYRINGE IV ONE ×2 (06:45→21:56)
[2019-12-17] MEDS ORDERED: INSULIN HUMAN REGULAR PER UNIT 10 UNITS in SYRINGE 9.9 ML IV ONE (06:46)
[2019-12-17] MEDS: PEPTAMEN INTENSE VHP 1.0 CAL 1,000 ML BAG OG SCH (06:56)
[2019-12-17] MEDS ORDERED: HEPARIN SOD (PORCINE) 1000 UNIT/ML 10 ML VIAL IV ONE (06:56)
[2019-12-17] MEDS ORDERED: SODIUM CHLORIDE 0.9% 1000ML 1,000 ML IV PRN (06:56)
[2019-12-17] MEDS: DOCUSATE SODIUM SYRUP 100 MG/10 ML UDC NG SCH ×2 (07:58→20:32)
[2019-12-17] MEDS: SENNA 8.8 MG/5 ML UDP NG SCH (08:02)
[2019-12-17] MEDS: INSULIN GLARGINE SOLOSTAR 100 UNITS/ML 3 ML PEN SC SCH ×2 (08:04→20:53)
[2019-12-17] MEDS: methylPREDNISolone 40 MG in SYRINGE 0 ML IV SCH (08:23)
[2019-12-17] MEDS: FAMOTIDINE 20 MG in SYRINGE 3 ML IV SCH (08:24)
[2019-12-17] MEDS ORDERED: MULTI VIT W/MINERALS LIQUID 15 ML UDP PO SCH (09:00)
--- NOTE | 2019-12-17 09:23 | Nephrology Progress Note ---
Date of Service December 17, 2019 Assessment & Plan (1) JACQUELINE (acute kidney injury): -- Baseline Cr 1.4. JACQUELINE due to ischemic ATN. Renal US negative for obstruction. Urinalysis w/ 2+ protein, microscopic hematuria and pyuria. Vasculitis evaluation was negative -- Nonoliguric. Will monitor UO -- Azotemia likely related to high catabolic rate and steroid administration. BUN remains elevated despite HD yesterday -- Will provide HD today for correction of azotemia, hyperkalemia and attempt 2 L UF. Orders were entered into EMR and HD RN notified (2) ARDS (adult respiratory distress syndrome): -- Biofire and COVID testing negative. Etiology of ARDS unclear. Patient remains mechanically ventilated and on droplet precautions -- Steroid therapy is being tapered. FiO2 remains 60% with PEEP 10 -- Attempt 2L UF w/ HD today. -- Will order CXR for am Subjective Mr. Hinkle was seen in the ICU. Examination withheld due to COVID-19 pandemic. Cause of ARDS is not yet defined. Patient remains mechanically ventilated and on droplet precautions. Plan of care was reviewed w/ ICU team this morning. Mr. Hinkle was dialyzed yesterday for 3 hours w/ 1000 cc UF. Catheter was run reversed due to poor arterial flow. Levophed has been weaned to off. FiO2 has been reduced to 60% w/ PEEP 10. Patient produced 650 cc UO yesterday. BUN remains elevated which may impede weaning from ventilator. Potassium has risen this morning despite HD. Review of Systems Review of Systems: Unobtainable due to endotracheal tube Physical Exam Physical Exam: PE not performed due to COVID 19 pandemic. Cause of ARDS not yet fully defined. Remains on droplet precautions. Attempting to preserve PPE. Toolroom Checker examined patient Results & Data Vital Signs (Past 12 Hours) Vital Signs Pulse Resp BP Pulse Ox 12/17/19 08:00 116 H 12/17/19 07:00 116 H 24 91 12/17/19 03:42 108 H 25 H 93 12/17/19 00:40 111 H 25 H 94 12/17/19 00:00 110 H 12/16/19 22:20 120 H 147/86 H 88 L Laboratory Results Laboratory Tests 12/17/19 12/17/19 12/17/19 04:10 04:10 05:02 WBC 23.57 H Hgb 12.0 L Hct 35.1 L Plt Count 273 POC Sodium 134 L POC Potassium 5.8 H Chloride 103 Carbon Dioxide 23 BUN 125 H Creatinine 3.88 H D Glucose 211 H PG Care Time/CCT Total # of Minutes Spent Total Time Spent with Patient: Total time spent is greater than 50% in coordination of care (as documented) at patient's floor/unit and/or counseling patient: Coding Level of Care Code 10280 Subseq Hosp Care Lvl 3 Diagnoses JACQUELINE (acute kidney injury) N17.9 ARDS (adult respiratory distress syndrome) J80
[2019-12-17] MEDS: MINERAL OIL 30 ML UDC PO PRN (09:39)
--- NOTE | 2019-12-17 11:12 | Pharmacy Report ---
Pharmacy Glycemic Short Note 2 - Date of Service December 17, 2019 - Glycemic Short BSG Results (Last 24 hours): 12/16/19 12/16/19 12/16/19 12:06 15:46 19:53 Glucose POC Glucose POC Glucose (other) 169 H 181 H 243 H 12/17/19 12/17/19 12/17/19 00:11 04:10 04:17 Glucose 211 H POC Glucose POC Glucose (other) 261 H 209 H 12/17/19 07:42 Glucose POC Glucose 183 H POC Glucose (other) OUTPATIENT ANTIDIABETIC REGIMEN: Per med rec: * Lantus 54 units SQ qPM * Glimepiride, linagliptin, and metformin * A1c = 9.4% 12/06/19 ASSESSMENT: * 64 yo male admitted to the ICU for ARDS, COVID-19 testing NEGATIVE, although still suspicion for COVID-19 infection * Pt is requiring pressor support with levophed and maintained on fentanyl and versed via continuous infusion. Temporary dialysis cath placed to maintain fluid balance in the setting of oliguric JACQUELINE with ATN. * PMH significant for T2DM, tobacco use, COPD, ASA and obesity 12/16 * Patient received 179 units of insulin yesterday with better control- BSGs ranging from 153-261 mg/dL (trended up with tf advance) * Will continue current lantus parameters as have seen an improvement in BSG control and insulin use trending down, however, changes in TF today * TF at goal overnight, carb ratio tightened to 2 as BSGs increased with advancement, and improved with this change, BSG 183 mg/dL at morning check. TF changing to novosource renal 2.0 which will provide a higher carb amount, will continue to monitor * Continues on IV solu-medrol 40 mg once daily. Patient will receive HD today. 12/14 * Patient received 238 units of insulin yesterday * BSGs ranged from 178-270 mg/dL; fasting BSG trending down to 219 this AM. * Patient remains on vent, Versed gtt restarted secondary to ventilator asynchrony. Levophed running at 0.01 mcg/kg/min. * Trophic tube feeds continue. IV steroids decreased to Solu-Medrol 40 mg once daily. Patient will receive HD today. * Have been using IV boluses of insulin instead of an insulin infusion per provider request due to demand for PPE when on q1h accuchecks. Hold parameters in place to ensure K does not fall to < 4. * Will decrease in IV steroids and Levophed dose, expect BSGs to improve today, no changes at this time. 12/13 * Gideon received 277 units of insulin yesterday (IV pushes + SQ) * BSGs were in the 300s yesterday but are finally starting to improve today. Down to 228 this morning. * Patient remains on vent, not responding to tactile stimuli so Versed drip placed on hold. Levophed at 0.02 mcg/kg/min. * Trophic tube feeds continue. IV steroids remain at Solu-medrol 40 mg q12h. Patient will receive HD today. * Have been using IV boluses of insulin instead of an insulin infusion per provider request due to demand for PPE when on q1h accuchecks. Hold parameters in place to ensure K does not fall to < 4. 12/12: * Patient received 179 units of insulin yesterday, BSGs have ranged in the upper 200s, low 300s- seem to be holding at this level * Trophic TFs continue, steroids were decreased from methylpred 60 mg q12 to 40 mg q12 * Provider would like to continue with IV boluses every 4 hours in addition to SQ basal/bolus rather than initiating insulin drip, therefore will continue to increase lantus, tighten correction factor, ? absorption issues with levophed * Patient will not receive HD today, will need to monitor K with IV insulin administration, continue to monitor, reviewed dextrose containing medications, switched doxycycline to NS diluent, new norepinephrine bag just hung but can consider switching to NS (concentration up to 16 mcg/mL) with next bag change 12/11: * Patient received 137 units of insulin yesterday (80 basal, 57 bolus). BSGs continue to uptrend, despite aggressive increases in insulin * Trophic TFs continue and IV steroids were started yesterday (likely to continue with an eventual taper) * Discussed with the provider and nurse and ideally an insulin infusion would be initiated, but given significant logistical considerations, we will continue SQ basal/bolus and add q4 hour IV regular insulin boluses. Will continue to monitor this and make adjustments as needed. Will utilize a weight based stress of three lantus dose. This may need to be increased further, but will wait to see effects of IV regular insulin boluses. Will further tighten novolog correction factor. 12/10: * Patient received 61 units of insulin yesterday (37 basal, 24 bolus). Insulin requirements increasing, BSGs trending upward into the 200s. * Patient also starting methylpred 60 mg q12H, will attempt to avoid insulin infusion but if BSGs further increased may need to start * Patients receiving steroids equivalent to prednisone 40 mg daily and above typically require an additional 0.4 units/kg of insulin in addition to basal needed, however, will be conservative and increase total possible lantus dose to ~.25 units/kg above home regimen. * AM BSG 207, still on trophic tube feeds. Tighten correction factor for now. 12/08: * Patient received a total of 29 units of insulin yesterday (25 basal, 4 bolus). Still requiring much less than home needs indicate. Will monitor. * BSGs well controlled today * Patient was started on trophic tube feeds. I don't anticipate this effecting BSGs too much, until rate/diet is advanced, will defer carb coverage for now. 12/07 * Since the time of admission, patient has been given two doses of Lantus (20 units on 4/2 PM and 15 units on 4/4 PM). Fasting BSG of 184 mg/dL this am. I would have expected this to be higher based on home dose of Lantus. * will schedule Lantus q12 based on BSG scale * Add Novolog coverage q4h - will utilize stress of 3 dosing due to above stressors and critical illness PLAN FOR INPATIENT GLYCEMIC CONTROL: * Continue to hold outpatient oral diabetes medications * Basal insulin * Lantus BID per the following scale: * 35 units for BSG < 140 mg/dL * 45 units for BSG 140-250 mg/dL * 55 units for BSG 250 or above * Bolus insulin * NovoLog per scale q4h * Goal Range: Low 110 mg/dL - High 140 mg/dL * Correction Factor: 5 mg/dL/unit * Nutritional / Prandial insulin-- carb ratio of 1 unit per 2 grams CHO consumed Regular insulin: 5 units IV q4h (Hold for BSG < 220 or potassium < 4) PLAN FOR DISCHARGE: * pending
[2019-12-17] MEDS: NOVASOURCE RENAL 2.0 CAL 1000ML BAG OG SCH (11:14)
[2019-12-17] MEDS: PROSOURCE NO CARB 30 ML/PKT OG SCH ×2 (11:14→17:16)
[2019-12-17] MEDS: HEPARIN SOD (PORCINE) 1000 UNIT/ML 10 ML VIAL IV SCH ×2 (11:15→12:15)
--- NOTE | 2019-12-17 11:28 | Hospitalist Progress Note ---
Date of Service December 17, 2019 Assessment & Plan (1) Acute respiratory failure with hypoxia: B/l pneumonia on chest x-ray. Clinical picture highly concerning for COVID-19, although two nasopharyngeal tests have come back negative for COVID-19 ([facility] on 12/04; [facility] on 12/07). No plans for further testing as this would not change treatment or prognosis at this time. - Intermittent proning per ICU. - Continues on vent. - Discussing with and possibly considering a trach. - Continues with hemodialysis to remove volume and help correct acidosis, treat azotemia (2) ARDS (adult respiratory distress syndrome): As above, unclear etiology, COVID testing was negative from both [facility] and [facility]. - Started trial of IV steroids on 12/10-continue to taper per pulmonary/ICU (3) Suspected 2019 novel coronavirus infection: See above in "acute hypoxic resp failure." - [facility] negative x 2 - Flu negative - COVID-19 negative on 12/07 from [facility] and also now on [facility] COVID test. (4) Sepsis: Secondary to pneumonia. - Continue supportive care (5) Acute renal failure (ARF): Secondary to dehydration/sepsis/ATN. - Now on HD - Continue to hold MIKAEL and HCTZ - Appreciate nephrology consultation for hemodialysis management of renal failure (6) Hypertension: - Holding anti-hypertensives (HCTZ, ACEi, amlodipine, etc) for hypotension. (7) Chronic obstructive pulmonary disease: By history, but not on inhalers at home. (8) Current smoker: 50+ years of smoking per patient. (9) Gastroesophageal reflux disease: Pepcid once daily which is renal dosing (10) Gout: No recent issues. Not on prophylaxis. (11) Diabetes mellitus type II, uncontrolled: Hyperglycemic ICU protocol, hyperglycemia worsened with starting IV steroids-pharmacy has intensified the insulin regimen and steroids are being tapered down-glucose is now improved - Defer to pharmacy (12) Ileus: He has not had a bowel movement throughout his hospital stay. He has been given lactulose on several occasions, continues on docusate 100 mg twice daily per OG tube as well as sennosides 8.8 mg once daily. - His feeds are only on trickle. - Continue to monitor (13) DVT prophylaxis: SQ Heparin Admission and Anticipated Discharge Date Admission Date: December 05, 2019 Subjective Intubated and sedated. Due to positive coronavirus status & hospital policy, this patient was examined from the doorway. The ventilator settings and respiratory status were reviewed, and the case was discussed with the RN and critical care physician. Review of Systems Review of Systems: Unobtainable due to endotracheal tube Physical Exam Constitutional: WD/WN, vitals as above + lethargic ENMT: external ear and nose normal, oropharynx normal Mouth / Teeth: 1. Intubated Respiratory: + respiratory distress and + labored breathing Cardiovascular: Rate/Rhythm: regular rhythm and + tachycardic Gastrointestinal (Abdomen): Inspection/Auscultation: abdomen normal to inspection; abdomen not distended Neurologic: + obtunded; + not awake Psychiatric: Orientation: + not alert Results & Data Results & Data ([facility]) Vital Signs (Past 12 Hours) Vital Signs Temp Pulse Pulse Resp BP Pulse Ox 12/17/19 10:40 129 H 158/75 H 12/17/19 10:20 124 H 161/72 H 12/17/19 10:00 38.1 C H 121 H 12/17/19 08:00 116 H 12/17/19 07:00 116 H 24 91 12/17/19 03:42 108 H 25 H 93 12/17/19 00:40 111 H 25 H 94 12/17/19 00:00 110 H PG Care Time/CCT Total # of Minutes Spent Total Time Spent with Patient: Total time spent is greater than 50% in coordination of care (as documented) at patient's floor/unit and/or counseling patient: Coding Level of Care Code 78754 Subseq Hosp Care Lvl 3 Diagnoses Acute respiratory failure with hypoxia J96.01 ARDS (adult respiratory distress syndrome) J80 Suspected 2019 novel coronavirus infection R68.89 Sepsis A41.9 Acute renal failure (ARF) N17.9 Acute renal failure type: unspecified Hypertension I10 Chronic obstructive pulmonary disease J44.9 Current smoker F17.200 Gastroesophageal reflux disease K21.9 Gout M10.9 Diabetes mellitus type II, uncontrolled E11.65 Ileus K56.7 DVT prophylaxis Z29.9 (1) Acute renal failure (ARF) Acute renal failure type: unspecified Qualified Code(s): N17.9 - Acute kidney failure, unspecified
--- NOTE | 2019-12-17 11:55 | Critical Care Progress Note ---
Date of Service December 17, 2019 Assessment & Plan (1) ARDS (adult respiratory distress syndrome): Impression: 64-year-old male with obesity, poorly controlled diabetes, COPD and ongoing tobacco abuse admitted with hypoxemic respiratory failure. He is progressed to multiorgan system dysfunction requiring initiation of renal replacement therapy and remains persistently ventilator dependent. 24-hour events: I was asked by hospital administration to assume attending duties of this patient due to conflicts between the current ICU attending and the patient's spouse. I had a long discussion with the patient's spouse yesterday and we tried to set some limits for appropriate information transfer without impeding the ability of nursing staff and hospital administration to continue their duties. The patient did undergo dialysis yesterday with removal of approximately 1700 cc ultrafiltrate. He tolerated a trial on pressure support ventilation for a period of time yesterday but then required increasing PEEP and FiO2. This morning his labs indicated hyperkalemia and he remains somewhat uremic. I evaluated the patient while he was undergoing dialysis this morning and discussed the case with Dr. Boyce as well as with the critical care multidisciplinary team. Recommendations: 1. Neuro: Patient remains deeply intubated and sedated. It is possible that given his renal function, there may be delayed clearance of sedatives and narcotics. We discussed with the nursing staff decreasing these titrations in half to see how he does. He is certainly at risk for withdrawal and consideration for oral agent such as clonazepam or methadone may be appropriate. Antipsychotic agents including Zyprexa or Geodon may also be indicated to help treat agitated ICU delirium. No indication for [employer] imaging currently as his ex am is nonfocal and more suggestive of metabolic/toxic encephalopathy. 2. Cardiovascular: Patient has had issues with arrhythmias including nonsustained ventricular tachycardia but these appear resolved. He had intermittently been on vasopressor agents but these have been weaned off over the last 24 hours and he is actually now slightly hypertensive. Echocardiogram during this admission showed no significant regional wall abnormalities and a preserved ejection fraction without significant valvular dysfunction. I think he would continue to benefit from fluid removal and there are plans to challenge him with 2 L ultrafiltration today. 3. Renal: Acute renal failure: Suspect ATN related to sepsis, pressor use in the setting of likely underlying kidney disease due to poorly controlled celestino betes. Continued renal replacement therapy currently. There is some issues with the catheter functioning and we may need to pursue alternative IV access in the next 24 hours if dialysis efforts are to be continued. Defer management of hyperkalemia and electrolyte abnormalities to nephrology. 4. Pulmonary: Acute hypoxemic respiratory failure: Unclear precipitant. COVID testing was negative on presentation. He now has increasing oxygen requirements and a new fever. Ventilator associated pneumonia as well as catheter infections would be on the differential. See ID below. Chest x-ray is pending today. Continue to wean ventilator as tolerated with transition to pressure support ventilation when possible. The patient has been initiated on steroids for treatment of late-phase ARDS. Continue Solu-Medrol 40 mg daily. 5. ID: Cultures have been negative to date but the patient now has an increasing white blood cell count which may be secondary to steroids as well as a new fever. Repeat chest x-ray pending. Will recheck procalcitonin, blood cultures, and respiratory cultures. Given his fever will ask pharmacy to re- dose vancomycin and placed on antibiotics for presumed ventilator associated pneumonia pending cultures and data. 6. GI: Per nursing patient has not had a bowel movement. Has been initiated on Relistor and is on several laxatives. We will add lactulose to his regiment. His abdomen does not appear overtly distended currently but bowel sounds are diminished. Functional ileus is possible and additional imaging may be required depending on clinical course. He is tolerating his tube feeds without a significant increase in residuals so this seems less likely. 7. Heme-onc: Mild anemia today but stable. No indication for transfusion. His leukocytosis is worrisome for possible infection although this could be related to demargination from steroids. We will continue to follow closely. 8. Prophylaxis: The patient is maintained on H2 kristian as well as subcu heparin. Continue for now. 9. Disposition: I updated the patient's , Pretty, this morning by phone and spent almost 30 minutes discussing the case with her. She is appropriately dist raught at the critical illness of her and the difficulties presented by the current coronavirus pandemic and associated hospital restrictions. Her biggest concern is being able to see her . We again reviewed the importance of social distancing and I again advised Pretty that it would not be in her best interest to spend a prolonged period of time here at the hospital as we have active COVID patient's hospitalized at this institution and increasing her exposure rate and potential community spread would not be recommended. She expressed a desire to take the patient home on hospice to allow family members to see him. We spent a significant amount of time reviewing why logistically this was not feasible. She again requests if multiple family members can come to the hospital and visit and I again reiterated hospital policy indicating no visitors currently. We did discuss that if a decision was made to transition the patient to full palliative care measures with terminal extubation, Pretty would be allowed to come to the hospital for a period of time. We reviewed again options to include full care measures versus transitioning to comfort care and after a prolonged discussion which was very tearful, Pretty requests that continued efforts be made to prolong the life of her in hopes of some degree of functional recovery. I did advise her that based on his clinical situation, returning home after an illness of this type is highly unlikely and likely the best case scenario would be that he would require some form of assisted or acute rehab and discharge from the hospital to home would be an unlikely scenario. She states clearly that the patient would not want to pursue a fci or rehab however she is not at a point to make a decision regarding transition to full palliative care comfort care measures. I also reiterated to the patient the importance of communication and our commitment to keep her updated. I advised her that I would contact her on a daily basis. In addition I advised her that she would be kept apprised of significant clinical changes in the patient's condition, however I did advise her that the determination of what was a clinically significant change in condition would be left to the treatment team and not to Pretty to determine. Yesterday she had requested that the patient be evaluated for transfer to an alternative facility. I advised her that we had pursued this option early in the hospitalization however referring facilities had advised that they did not see a reason to accept this patient as they would not be able to offer him a higher level of care than what he was receiving here. In addition I advised her that if she was able to procure an accepting facility and an accepting provider, it would be unlikely that insurance would cover the cost of transport as this would be a lateral transfer. Cost of transport can be thousands of dollars. I did advise Pretty that she had the option to contact outside facilities to see if they would be willing to accept him but again the cost of transport would likely fall to her. She states this is not an option and she cannot afford to consider transferring him to an alternative facility currently. I did my best to offer support to very in this very difficult situation. I advised her that we are all operating under constraints that are unusual for us. I reassured her that the clinical care team is providing the best care possible for Mr. Hinkle in this condition and I sympathized with her about her desire to be present during his acute illness. She will continue to be updated and we will continue to offer support. (2) JACQUELINE (acute kidney injury): (3) Sepsis: (4) Metabolic encephalopathy: (5) Acute respiratory failure with hypoxia: (6) Diabetes mellitus type II, uncontrolled: Admission and Anticipated Discharge Date Admission Date: December 05, 2019 Subjective Patient intubated and sedated Review of Systems Review of Systems: Unobtainable due to endotracheal tube Physical Exam Constitutional: + mechanically ventilated and + overweight Eyes: PERRL Neck: trachea midline, no thyromegaly Respiratory: Coarse bronchial breath sounds bilaterally. Cardiovascular: Rate/Rhythm: + tachycardic Heart Sounds: normal S1 and normal S2; no murmur Gastrointestinal (Abdomen): Soft. Nondistended. Bowel sounds are diminished. Skin: Erythematous skin breakdown as noted in nursing notes. No ulcers as of yet Neurologic: Unable to assess due to patient being intubated and sedated Results & Data Results & [facility] ([facility]) Vital Signs (Past 12 Hours) Vital Signs Temp Pulse Pulse Resp BP Pulse Ox 12/17/19 11:20 133 H 155/96 H 12/17/19 11:00 130 H 154/75 H 12/17/19 10:40 129 H 158/75 H 12/17/19 10:20 124 H 161/72 H 12/17/19 10:00 38.1 C H 121 H 12/17/19 08:00 116 H 12/17/19 07:00 116 H 24 91 12/17/19 03:42 108 H 25 H 93 12/17/19 00:40 111 H 25 H 94 12/17/19 00:00 110 H Laboratory Results 12/17/19 04:10 12/17/19 08:08 12/05/19 12/06/19 12/07/19 10:08 04:07 04:17 ABG pH 7.49 H 7.41 7.31 L ABG pCO2 29 L 39 47 H ABG pO2 67 L 101 H 55 L ABG HCO3 22 24 24 ABG O2 Saturation 94.1 97.8 H 83.8 L ABG Base Excess -0.6 -0.2 -2.8 12/08/19 12/13/19 12/14/19 04:12 04:18 04:16 ABG pH 7.27 L 7.31 L 7.33 L ABG pCO2 49 H 40 30 L ABG pO2 70 L 72 L 80 ABG HCO3 22 20 16 L ABG O2 Saturation 91.9 91.5 94.2 ABG Base Excess -5.2 -6.2 -9.3 L Diagnostic Findings Last chest x-ray was from 12/15/2019 and was independently reviewed and compared to prior film from 12/12. There was increasing haziness at the right costophrenic angle. Repeat film ordered for today. Coding Level of Care Code Critical Care 1st 30-74 mins Diagnoses ARDS (adult respiratory distress syndrome) J80 JACQUELINE (acute kidney injury) N17.9 Sepsis A41.9 Metabolic encephalopathy G93.41 Acute respiratory failure with hypoxia J96.01 Diabetes mellitus type II, uncontrolled E11.65 Time Spent (min) 50
[2019-12-17] MEDS: ACETAMINOPHEN 500 MG TAB PO PRN ×5 (12:00→20:31)
[2019-12-17] MEDS ORDERED: LACTULOSE SYRUP 30 GM/45 ML UDP PO SCH (12:00)
--- NOTE | 2019-12-17 13:22 | XRay Report ---
SINGLE VIEW CHEST CLINICAL HISTORY: Fever. FINDINGS: 2 AP, portable, upright chest radiographs are compared to study dated 12/15/2019. The examin ation is significantly degraded by portable technique and patient rotation. An endotracheal tube an d a left subclavian central venous catheter are unchanged in position. An enteric tube is new from pr evious. This projects below the diaphragm over the stomach. The heart is mildly enlarged noting ather osclerotic calcification of the thoracic aorta. The pulmonary vasculature is noncongested. Consolidat ion is present at both lung bases. No large pleural effusion or pneumothorax is seen. The bony thorax is grossly intact. IMPRESSION: 1. An enteric tube is new from previous. 2. Patchy airspace consolidation is seen at the lung bases. Correlate clinically for evidence of pneu monia/aspiration pneumonitis. Radiographic follow-up to resolution is recommended. ACT 112: Negative or not required by law. Electronically signed by: Wyatt Soto M.D. 12/17/2019 1:20 PM
[2019-12-17] MEDS ORDERED: VANCOMYCIN HCL 2,500 MG in SODIUM CHLORIDE 0.9% 500 ML IV ONE (14:00)
--- NOTE | 2019-12-17 14:02 | Pharmacy Report ---
Pharmacy Abx Initial Consult - Date of Service December 17, 2019 - Pharmacy Dosing Scope Date of Consult: 12/16 Consultation requested by: Dr. Shearer Pharmacy is consulted to initiate vancomycin/zosyn IV/PO dosing therapy, order appropriate labs and adjust drug dose/frequency. - Subjective The patient is a 64 year old M admitted on 12/05/19 12:32. - Objective Height: 5 ft 7 in Weight: 102 kg Vital Signs (Past 12hrs): Vital Signs Temp Pulse Pulse Resp BP Pulse Ox 12/17/19 13:40 137 H 131/75 12/17/19 13:20 135 H 130/74 12/17/19 13:00 134 H 115/68 12/17/19 12:40 137 H 145/76 H 12/17/19 12:20 134 H 140/76 12/17/19 12:00 134 H 155/76 H 91 12/17/19 11:40 133 H 156/72 H 12/17/19 11:30 133 H 89 L 12/17/19 11:20 132 H 155/96 H 88 L 12/17/19 11:00 131 H 154/75 H 88 L 12/17/19 10:40 129 H 158/75 H 12/17/19 10:30 131 H 87 L 12/17/19 10:20 125 H 169/94 H 91 12/17/19 10:00 38.1 C H 121 H 121 H 90 12/17/19 09:30 117 H 92 12/17/19 09:20 118 H 150/92 H 91 12/17/19 09:00 118 H 91 12/17/19 08:30 120 H 90 12/17/19 08:20 119 H 135/85 90 12/17/19 08:17 118 H 150/96 H 91 12/17/19 08:00 120 H 90 12/17/19 07:30 119 H 90 12/17/19 07:20 117 H 136/82 89 L 12/17/19 07:00 118 H 24 89 L 12/17/19 03:42 108 H 25 H 93 Lab Results (24hrs): Laboratory Tests (24 Hours) 12/17/19 12/17/19 04:10 04:10 WBC 23.57 H Creatinine 3.88 H D Est Cr Clr Drug Dosing 21.8 Micro Results: 12/17/19 12:45 Gram Stain - Final Sputum,Vent Suction Sputum Culture - Pending 12/17/19 11:17 Aerobic Blood Culture - Pending Blood Anaerobic Blood Culture - Pending 12/17/19 11:32 Aerobic Blood Culture - Pending Blood Anaerobic Blood Culture - Pending 12/11/19 08:26 Aerobic Blood Culture - Final Blood No growth in Aerobic bottle after 5 days. Anaerobic Blood Culture - Final No growth in Anaerobic bottle after 5 days. 12/11/19 08:39 Aerobic Blood Culture - Final Blood No growth in Aerobic bottle after 5 days. Anaerobic Blood Culture - Final No growth in Anaerobic bottle after 5 days. 12/05/19 10:08 Aerobic Blood Culture - Final Blood No growth in Aerobic bottle after 5 days. Anaerobic Blood Culture - Final No growth in Anaerobic bottle after 5 days. 12/05/19 09:30 Aerobic Blood Culture - Final Blood No growth in Aerobic bottle after 5 days. Anaerobic Blood Culture - Final No growth in Anaerobic bottle after 5 days. 12/08/19 11:25 Gram Stain - Final Sputum,Vent Suction Sputum Culture - Final Light normal monie. 12/05/19 17:30 Gram Stain - Final Sputum,Vent Suction Sputum Culture - Final Scant normal monie. 12/05/19 17:30 Urine Culture - Final Urine,Straight Cath No growth - less than 1,000 colonies/mL. - Risk Factors for Resistance * Current hospitalization > 5 days - Assessment & Plan Assessment 64 year old M with history of COPD, current smoker, type II diabetes, GERD, Gout, HLD, HTN, Sleep apnea admitted 12/04 for acute respiratory failure. Patient has been on ventilation since admission, day #13. COVID-19 testing negative x 2, respiratory biofire negative, BC from 12/04, 12/10, negative to date, sputum cultures from 12/04 and 12/07 with normal monie. Patient with renal failure currently undergoing hemodialysis. Patient has previously received a full course of doxycycline (stopped 12/15), 5 days of ceftriaxone (stopped 12/12) + 3 days of cefepime (stopped 12/07), and 3 days of caspofungin(stopped 12/12). WBC has been trending up over the last 3 days and has become febrile today. CXRay 12/16: "patchy airspace consolidation at lung bases. Correlate clinically for evidence of pneumonia/aspiration pneumonitis." Blood cultures and sputum culture pending. Will begin vancomycin + zosyn empirically for possible VAP. Plan Vancomycin IV * Patient SCr currently 3.88 with acute renal failure/undergoing hemodialysis sessions, therefore will dose by levels to determine further dosing * Loading dose: 2500 mg (25 mg/kg) * Goal trough level 15-20 mcg/mL * Random ordered for 4/15 AM to assist with further dosing, uncertain of HD tomorrow Piperacillin/tazobactam * 4.5 g bolus administered over 30 minutes, then 4.5 g IV extended infusion every 12 hours for dialysis. * Aggressive dosing selected due to critically ill status/BMI 35 or more Pharmacy will continue to follow and will adjust dose/frequency as necessary. Thank you.
[2019-12-17] MEDS ORDERED: PIPERACILL/TAZOBAC CONSULT ACTIVE PRN (14:06)
[2019-12-17] MEDS ORDERED: VANCOMYCIN CONSULT ACTIVE PRN (14:06)
[2019-12-17] MEDS ORDERED: PIPERACILLIN/TAZOBACTAM 4.5 GM in DEXTROSE 5% 100 ML IV ONE (16:00)
--- NOTE | 2019-12-17 16:04 | Electrocardiogram Report ---
Test Reason : Blood Pressure : / mmHG Vent. Rate : 120 BPM Atrial Rate : 120 BPM P-R Int : 164 ms QRS Dur : 086 ms QT Int : 304 ms P-R-T Axes : 016 017 127 degrees QTc Int : 429 ms Sinus tachycardia T wave abnormality, consider lateral ischemia Abnormal ECG When compared with ECG of 06-DEC-2019 11:29, T wave inversion more evident in Lateral leads Confirmed by Kris Justice ([id number]) on 12/17/2019 4:04:18 PM Referred By: REFERRED SELF Confirmed By:Kirs Justice
[2019-12-17] MEDS: LACTULOSE SYRUP 30 GM/45 ML UDP PO SCH (20:32)
[2019-12-17] MEDS: MIDAZOLAM BOLUS FROM BAG IV PRN (20:39)
[2019-12-17] MEDS ORDERED: FENTANYL BOLUS FROM BAG IV ONE (20:42)
[2019-12-17] MEDS: MIDAZOLAM HCL 125 MG/250 ML BAG IV SCH ×2 (20:55→21:02)
[2019-12-17] MEDS: fentaNYL DRIP 1,250 MCG/250 ML BAG IV SCH (20:56)
[2019-12-17 21:41] LABS: BUN Creatinine Ratio 30.6 (10-20); Calcium 8.2 mg/dl (8.5-10.1); Creatinine Clr Calc Pharmacy 24.3 ml/min; Est GFR (African American) 20.6; Est GFR (Non-African American) 17.8; Potassium 6.3 mmol/L (3.5-5.1)
[2019-12-17 21:53] LABS: Beta-Hydroxybutyrate 2.36 mg/dl (0.2-2.81)
[2019-12-17] MEDS ORDERED: INSULIN HUMAN REGULAR PER UNIT 10 UNITS in SYRINGE 0 ML IV STA (21:56)
[2019-12-17] MEDS ORDERED: SODIUM POLYSTYRENE SULFONATE 15G/60ML SUSP PO SCH (22:00)
[2019-12-17] MEDS ORDERED: INSULIN HUMAN REGULAR PER UNIT 5 UNITS in SYRINGE 4.95 ML IV ONE (22:00)
[2019-12-17] MEDS ORDERED: CALCIUM GLUCONATE 10% 1,000 MG in SODIUM CHLORIDE 0.9% 50 ML IV ONE (22:15)
[2019-12-17] MEDS ORDERED: SODIUM POLYSTYRENE SULFONATE 15G/60ML SUSP PO STA (22:20)
[2019-12-17] MEDS ORDERED: FUROSEMIDE 80 MG in SYRINGE 0 ML IV ONE (22:45)
[2019-12-17] MEDS ORDERED: METOPROLOL TARTRATE 1 MG/ML VIAL IV ONE ×2 (23:14→23:22)
[2019-12-17] MEDS ORDERED: METOPROLOL TARTRATE 1 MG/ML VIAL IV STA ×3 (23:29→23:42)
[2019-12-17] MEDS ORDERED: STAT IV Infusion **Titration per Protocol STA (23:48)
--- NOTE | 2019-12-17 23:48 | Communication Note ---
Date of Service: December 17, 2019 Earlier tonight lab work revealed that Mr. Hinkle's potassium was elevated at 6.3 after receiving dialysis earlier today. I spoke with nephrology, and cur rently managing medically overnight and he was given IV insulin, calcium gluconate, Lasix, followed with Kayexalate. Patient will receive dialysis session in the a.m. At approximately 2330, patient entered A. fib with RVR confirmed with EKG and became symptomatically hypotensive. He did receive IV metoprolol which slowed the rate but patient became hypotensive and was now requiring vasopressor. Decision was made to proceed with synchronized cardioversion and he was successfully cardioverted with 1 synchronized shock with 100 J. Repeat BMP is now pending. The patient's was updated with acute events. Patient remains in sinus rhythm. Will follow-up on labs and treat as indicated. I have personally spent 40 minutes of critical care time in the direct management of this patient. This is a life/limb threatening event. This includes time spent evaluating patient, direct bedside care, chart review, placing orders, interpretation of diagnostic studies, discussion with consultants, patient, and family members, as well as other required patient management activities. This time is exclusive of all separately billable procedures, and teaching time and separate from and in addition to any other critical care service time. Thank you for allowing us to participate in the care of this patient. Please refer to my attending physician's documentation for any further recommendations. Coding Level of Care Code Critical Care genna addt'l 30 min
[2019-12-18] MEDS ORDERED: dilTIAZem HCL 125 MG in DEXTROSE 5% 100 ML IV SCH
[2019-12-18] MEDS: HEPARIN SOD (PORCINE) 1000 UNIT/ML 10 ML VIAL IV SCH (00:19)
[2019-12-18 00:21] LABS: BUN Creatinine Ratio 30.7 (10-20); Calcium 8.5 mg/dl (8.5-10.1); Creatinine Clr Calc Pharmacy 22.5 ml/min; Est GFR (African American) 18.8; Est GFR (Non-African American) 16.2
[2019-12-18 00:34] LABS: Beta-Hydroxybutyrate 1.21 mg/dl (0.2-2.81)
[2019-12-18 00:37] LABS: Potassium 5.2 mmol/L (3.5-5.1)
[2019-12-18] MEDS: INSULIN ASPART 100 UNITS/ML 3 ML PEN SQ SCH ×6 (00:41→21:56)
[2019-12-18] MEDS: PIPERACILLIN/TAZOBACTAM 4.5 GM in DEXTROSE 5% 100 ML IV SCH ×2 (00:43→12:24)
[2019-12-18] MEDS: INSULIN HUMAN REGULAR PER UNIT 10 UNITS in SYRINGE 9.9 ML IV SCH ×4 (00:43→11:39)
[2019-12-18] MEDS: INSULIN HUMAN REGULAR PER UNIT 5 UNITS in SYRINGE 4.95 ML IV SCH ×3 (01:05→21:55)
[2019-12-18] MEDS: fentaNYL DRIP 1,250 MCG/250 ML BAG IV SCH (02:05)
[2019-12-18] MEDS: HEPARIN SOD 5,000 UNIT/0.5 ML VIAL SQ SCH ×3 (03:23→20:12)
[2019-12-18] MEDS: PROSOURCE NO CARB 30 ML/PKT OG SCH ×3 (03:41→17:12)
[2019-12-18 04:25] LABS: Hematocrit (blood only) 31.1 % (42-52); Hemoglobin 9.8 g/dL (14.0-18.0); Mean Corpuscular Hemoglobin 29.1 pg (25-34); Mean Corpuscular Hgb Conc 31.5 g/dL (32-36); Mean Corpuscular Volume 92.3 fL (80-100); Mean Platelet Volume 9.3 fL (7.4-10.4); Nucleated RBC # (auto) 0.04 K/uL (0-0); Nucleated RBC % (auto) 0.2 %; Platelet Count 281 K/uL (130-400); RDW Coefficient of Variation 14.9 % (11.5-14.5); RDW Standard Deviation 48.8 fL (36.4-46.3); Red Blood Count 3.37 M/uL (4.7-6.1); White Blood Count 24.79 K/uL (4.8-10.8)
[2019-12-18 04:34] LABS: INR 1.1 (0.9-1.1); Prothrombin Time 11.7 Seconds (9.0-12.0)
[2019-12-18 04:47] LABS: Basophils # (auto) 0.02 K/uL (0-0.2); Basophils % (auto) 0.1 %; Immature Granulocytes # (auto) 0.49 K/uL (0.00-0.02); Lymphocytes # (auto) 1.34 K/uL (1.2-3.4); Lymphocytes % (auto) 5.4 %; Monocytes # (auto) 0.92 K/uL (0.11-0.59); Monocytes % (auto) 3.7 %; Neutrophils # (auto) 22.02 K/uL (1.4-6.5); Neutrophils % (auto) 88.8 %
[2019-12-18 04:58] LABS: Albumin Globulin Ratio 0.3 (0.9-2); Albumin Level 1.2 gm/dl (3.4-5.0); BUN Creatinine Ratio 33.2 (10-20); Bilirubin,Total 0.5 mg/dl (0.2-1); Calcium 7.1 mg/dl (8.5-10.1); Creatinine Clr Calc Pharmacy 25.9 ml/min; Est GFR (African American) 22.3; Est GFR (Non-African American) 19.2; Globulin 4.3 gm/dl (2.5-4.0); Magnesium 2.3 mg/dl (1.8-2.4); Phosphorus 7.6 mg/dl (2.5-4.9); Potassium 3.6 mmol/L (3.5-5.1); Total Protein 5.5 gm/dl (6.4-8.2)
[2019-12-18 05:06] LABS: iSTAT Art Bld Gas pCO2 Correct 41 mmHg (35-46); iSTAT Art Bld Gas pH Corrected 7.294 (7.35-7.45); iSTAT Arterial Blood Gas HCO3 20 meg/L (19-24); iSTAT Arterial Blood Gas pCO2 41 mmHg (35-46); iSTAT Arterial Blood Gas pO2 81 mmHg (80-95); iSTAT Arterial Blood Gas pO2 C 82; iSTAT Carbon Dioxide 21 mmol/L (24-31); iSTAT FiO2 40 %; iSTAT Hematocrit 34 % (42-52); iSTAT Hemoglobin 11.6 g/dl (14.0-18.0); iSTAT Potassium 4.3 mmol/L (3.3-5.0); iSTAT Site Art Line; iSTAT Sodium 133 mmol/L (135-144)
--- NOTE | 2019-12-18 08:16 | XRay Report ---
XR chest 1V portable HISTORY: 64 years-old Male ARDS, mechanical ventilation acute respiratory failure COMPARISON: Chest radiograph 12/17/2019 TECHNIQUE: Portable AP view of the chest FINDINGS: Endotracheal tube overlies the midline, 4.9 cm superior to the isra. Distal tip of enteric tube pro jects over the expected location of the proximal gastric body. Left subclavian central venous cathete r distal tip projects over the expected location of the brachiocephalic SVC confluence. Cardiomegaly with pulmonary vascular congestion. Mixed interstitial and alveolar opacities of the lung bases persi st. Slightly decreased left lung base opacities. No pneumothorax. Blunting of the costophrenic angles may be secondary to atelectasis versus trace effusions. Degenerative changes of the shoulders and sp ine. IMPRESSION: 1. Lines and tubes as above. 2. Cardiomegaly with persistent bibasilar opacities, mildly improved on the left. 3. No pneumothorax. ACT 112: Negative or not required by law. The above report was generated using voice recognition software. It may contain grammatical, syntax o r spelling errors. Electronically signed by: Darin Daniel M.D. 12/18/2019 8:15 AM
[2019-12-18] MEDS: INSULIN GLARGINE SOLOSTAR 100 UNITS/ML 3 ML PEN SC SCH ×2 (08:32→21:55)
[2019-12-18] MEDS: METHYLNALTREXONE BROMIDE 12 MG/0.6 ML VIAL SQ SCH (08:32)
[2019-12-18] MEDS: DOCUSATE SODIUM SYRUP 100 MG/10 ML UDC NG SCH ×2 (08:32→20:12)
[2019-12-18] MEDS: SENNA 8.8 MG/5 ML UDP NG SCH (08:33)
[2019-12-18] MEDS: LACTULOSE SYRUP 30 GM/45 ML UDP PO SCH ×2 (08:33→20:11)
[2019-12-18] MEDS: MULTI VIT W/MINERALS LIQUID 15 ML UDP PO SCH (08:33)
[2019-12-18] MEDS: FAMOTIDINE 20 MG in SYRINGE 3 ML IV SCH (08:36)
[2019-12-18] MEDS: methylPREDNISolone 40 MG in SYRINGE 0 ML IV SCH (08:36)
--- NOTE | 2019-12-18 09:28 | Nephrology Progress Note ---
Date of Service December 18, 2019 Assessment & Plan (1) JACQUELINE (acute kidney injury): -- Baseline Cr 1.4. JACQUELINE due to ischemic ATN. Renal US negative for obstruction. Urinalysis w/ 2+ protein, microscopic hematuria and pyuria. Vasculitis evaluation was negative -- Nonoliguric. Will schedule Furosemide 40 mg IV BID to promote diuresis -- Electrolyte balance is acceptable this am following medical management of hyperkalemia. BUN is improved. No acute indication for HD at this time. -- Will order PRP for am and monitor response to diuretic therapy -- If HD becomes necessary tomorrow, would recommend changing femoral HD catheter to IJ site to allow continued treatment (2) ARDS (adult respiratory distress syndrome): -- Biofire and COVID testing negative. Etiology of ARDS unclear. Patient remains mechanically ventilated and on droplet precautions -- Steroid therapy is being tapered. FiO2 remains 40% with PEEP 10 -- CXR film reviewed this am. No significant change from previous studies. Patchy bibasilar interstitial infiltrates persist Subjective Mr. Hinkle was seen in the ICU. Examination withheld due to COVID-19 pandemic. Cause of ARDS is not yet defined. Patient remains mechanically ventilated and on droplet precautions. Plan of care was reviewed w/ ICU team this morning. Mr. Hinkle was dialyzed yesterday for 4 hours w/ 2000 cc UF. Catheter was run reversed due to poor arterial flow. FiO2 has been reduced to 40% w/ PEEP 10. Patient produced 945 cc UO yesterday. He remains on steroid therapy and Novosource Renal tube feeding. Following dialysis BUN mildly improved from 113 to 106. Unfortunately patient became progressively hyperkalemic. Potassium peaked at 6.3. Labs reviewed w/ ICU team last evening. Mr. Hinkle was managed medically w/ Ca, insulin, dextrose, Furosemide and Kayexelate. Potassium has improved to 3.9 this morning and Mr. Hinkle remains nonoliguric. Review of Systems Review of Systems: Unobtainable due to endotracheal tube Physical Exam Physical Exam: PE not performed due to COVID 19 pandemic. Cause of ARDS not yet fully defined. Remains on droplet precautions. Attempting to preserve PPE. Mission Analyst examined patient Results & Data Vital Signs (Past 12 Hours) Vital Signs Temp Pulse Resp BP Pulse Ox 12/18/19 07:08 73 27 H 91 04/15/20 04:51 75 22 91 12/18/19 04:00 36.9 C 75 94 12/18/19 03:45 68 26 H 95 12/18/19 03:22 67 117/69 94 12/18/19 03:00 68 91 12/18/19 02:21 36.7 C 68 99/52 L 95 12/18/19 02:00 70 95 12/18/19 01:21 72 87/56 L 95 12/18/19 01:00 36.2 C L 74 93 12/18/19 00:49 71 134/66 95 12/18/19 00:21 36.2 C L 70 95/55 L 92 12/18/19 00:18 150 H 100/50 L 12/18/19 00:00 104 H 95/67 L 94 12/17/19 23:54 109 H 129/84 94 12/17/19 23:20 36.2 C L 115 H 131/67 94 12/17/19 23:17 112 H 119/83 94 12/17/19 23:08 116 H 29 H 93 12/17/19 23:00 120 H 96 12/17/19 22:00 39.4 C H 134 H 94 Laboratory Results Laboratory Tests 12/18/19 12/18/19 12/18/19 04:10 04:10 04:51 WBC 24.79 H Hgb 9.8 L POC Hgb 11.6 L Plt Count 281 Sodium 136 Potassium 3.6 D Chloride 110 H Carbon Dioxide 17 L BUN 106 H Creatinine 3.19 H D Glucose 298 H PG Care Time/CCT Total # of Minutes Spent Total Time Spent with Patient: Total time spent is greater than 50% in coordination of care (as documented) at patient's floor/unit and/or counseling patient: Coding Level of Care Code 94299 Subseq Hosp Care Lvl 3 Diagnoses JACQUELINE (acute kidney injury) N17.9 ARDS (adult respiratory distress syndrome) J80
--- NOTE | 2019-12-18 09:43 | Critical Care Progress Note ---
Date of Service December 18, 2019 Assessment & Plan (1) ARDS (adult respiratory distress syndrome): Impression: 64-year-old male with obesity, poorly controlled diabetes, COPD and ongoing tobacco abuse admitted with hypoxemic respiratory failure. He is progressed to multiorgan system dysfunction requiring initiation of renal replacement therapy and remains persistently ventilator dependent. 24-hour events: Patient underwent dialysis yesterday with removal of ultrafiltration again. The catheter had difficulty functioning and flow had to be reversed again. It is felt that if the patient requires additional renal replacement therapy, new access will be required. He maintained hemodynamic stability until late in the evening when he developed atrial fibrillation with rapid ventricular response. He was successfully cardioverted. He did develop some hemodynamic instability associated with rapid heart rate which improved after cardioversion. His vent settings have remained stable to slightly decreased. We are weaning his sedation. Recommendations: 1. Neuro: Patient remains deeply intubated and sedated. It is possible that given his renal function, there may be delayed clearance of sedatives and narcotics. We will attempt to discontinue fentanyl and Versed at this point time although given his potential fat deposition and impaired clearance due to renal dysfunction, these active metabolites may be present for quite some time. If additional sedation is required may consider propofol. He is certainly at risk for withdrawal and consideration for oral agent such as clonazepam or methadone may be appropriate. Antipsychotic agents including Zyprexa or Geodon may also be indicated to help treat agitated ICU delirium. No indication for QUALITY ASSURANCE ASSESSOR imaging currently as his exam is nonfocal and more suggestive of metabolic/toxic encephalopathy. 2. Cardiovascular: Atrial fibrillation with rapid ventricular response left evening status post cardioversion. Will initiate low-dose metoprolol and try and wean off pressors. Echocardiogram during this admission showed no significant regional wall abnormalities and a preserved ejection fraction without significant valvular dysfunction. Additional diuretics being administered by nephrology today. 3. Renal: Acute renal failure: Suspect ATN related to sepsis, pressor use in the setting of likely underlying kidney disease due to poorly controlled diabetes. Continued renal replacement therapy currently. Discussed with nephrology. Hold hemodialysis today and observe urine output with diuretics. We can remove his femoral HD catheter as it is not anticipated to be used in the future and if the patient requires additional renal replacement, he will require a new access. We will reassess tomorrow. 4. Pulmonary: Acute hypoxemic respiratory failure: Unclear precipitant. COVID testing was negative on presentation. Suspect ventilator associated pneumonia given his fever and white blood cell count as well as elevated procalcitonin. He is been initiated on vancomycin and Zosyn, day #2. Await culture data. Continue to wean ventilator with PEEP and FiO2 per ARDS net protocols. Continue steroids for late-phase ARDS 5. ID: Suspect new pneumonia based on chest x-ray findings, fever, and white blood cell count. Awaiting cultures. Day #2 vancomycin and Zosyn 6. GI: Continue aggressive bowel protocol. Tolerating tube feeds at goal. 7. Heme-onc: Mild anemia today but stable. No indication for transfusion. Continue to trend white blood cell count 8. Endo: Continue glycemic control. This is been hampered by concomitant steroids as well as tube feeds. He is on high-dose Lantus. Per pharmacy protocol 9. Prophylaxis: The patient is maintained on H2 kristian as well as subcu heparin. Continue for now. 10. Disposition: I updated the patient's , Pretty, today via phone conversation. She was updated on the patient's clinical course and care plan for today. I think he is made a small amount of progress despite a few small setbacks. Prognosis remains guarded at this point in time. (2) JACQUELINE (acute kidney injury): (3) Sepsis: (4) Metabolic encephalopathy: (5) Acute respiratory failure with hypoxia: (6) Diabetes mellitus type II, uncontrolled: Admission and Anticipated Discharge Date Admission Date: December 05, 2019 Subjective Intubated and sedated. Review of Systems Review of Systems: Unobtainable due to endotracheal tube Physical Exam Constitutional: + mechanically ventilated and + overweight Eyes: PERRL Neck: trachea midline, no thyromegaly Respiratory: coarse bilaterally. no wheezing. Cardiovascular: Rate/Rhythm: regular rate and + tachycardic Heart Sounds: normal S1 and normal S2; no murmur Extremities: + edema Gastrointestinal (Abdomen): normal bowel sounds, soft, nontender, no hepatosplenomegaly Musculoskeletal: no cyanosis or clubbing, extremities motor strength 5/5 Skin: no rashes, warm and dry erythema per nursing. Results & Data Results & Data ([facility]) Vital Signs (Past 12 Hours) Vital Signs Temp Pulse Resp BP Pulse Ox 12/18/19 07:08 73 27 H 91 12/18/19 04:51 75 22 91 04/15/20 04:00 36.9 C 75 94 12/18/19 03:45 68 26 H 95 12/18/19 03:22 67 117/69 94 12/18/19 03:00 68 91 12/18/19 02:21 36.7 C 68 99/52 L 95 12/18/19 02:00 70 95 12/18/19 01:21 72 87/56 L 95 12/18/19 01:00 36.2 C L 74 93 12/18/19 00:49 71 134/66 95 12/18/19 00:21 36.2 C L 70 95/55 L 92 12/18/19 00:18 150 H 100/50 L 12/18/19 00:00 104 H 95/67 L 94 12/17/19 23:54 109 H 129/84 94 12/17/19 23:20 36.2 C L 115 H 131/67 94 12/17/19 23:17 112 H 119/83 94 12/17/19 23:08 116 H 29 H 93 12/17/19 23:00 120 H 96 12/17/19 22:00 39.4 C H 134 H 94 Coding Level of Care Code Critical Care 1st 30-74 mins Diagnoses ARDS (adult respiratory distress syndrome) J80 JACQUELINE (acute kidney injury) N17.9 Sepsis A41.9 Metabolic encephalopathy G93.41 Acute respiratory failure with hypoxia J96.01 Diabetes mellitus type II, uncontrolled E11.65 Time Spent (min) 55 Comment 55 minutes critical care time managing life-threatening illness
[2019-12-18] MEDS ORDERED: FUROSEMIDE 40 MG in SYRINGE 0 ML IV ONE (10:00)
--- NOTE | 2019-12-18 11:02 | Hospitalist Progress Note ---
Date of Service December 18, 2019 Assessment & Plan (1) Afib: Went into afib with RVR last night. Required cardioversion when he became hypotensive. - Restarted on low-dose Levophed at that time. - Now on metoprolol tartrate 12.5 mg PO Q8h (2) Acute respiratory failure with hypoxia: B/l pneumonia on chest x-ray. Clinical picture highly concerning for COVID-19, although two nasopharyngeal tests have come back negative for COVID-19 ([facility] on 12/04; [facility] on 12/07). No plans for further testing as this would not change treatment or prognosis at this time. - Intermittent proning per ICU. - Continues on vent. - Discussing with and possibly considering a trach. - Continues with hemodialysis to remove volume and help correct acidosis, treat azotemia (3) ARDS (adult respiratory distress syndrome): As above, unclear etiology, COVID testing was negative from both [facility] and [facility]. - Started trial of IV steroids on 12/10 - continue to taper per pulmonary/ICU (4) Suspected 2019 novel coronavirus infection: See above in "acute hypoxic resp failure." - Biofire negative x 2 - Flu negative - COVID-19 negative on 12/27 from [facility] and on [facility] COVID test on 12/07. (5) Sepsis: Secondary to pneumonia. - Continue supportive care (6) Acute renal failure (ARF): Secondary to dehydration/sepsis/ATN. - Now on HD - Continue to hold MIKAEL and HCTZ - Appreciate nephrology consultation for hemodialysis management of renal failure (7) Hypertension: - Holding anti-hypertensives (HCTZ, ACEi, amlodipine, etc) for hypotension. (8) Chronic obstructive pulmonary disease: By history, but not on inhalers at home. (9) Current smoker: 50+ years of smoking per patient. (10) Gastroesophageal reflux disease: Pepcid once daily which is renal dosing (11) Gout: No recent issues. Not on prophylaxis. (12) Diabetes mellitus type II, uncontrolled: Hyperglycemic ICU protocol, hyperglycemia worsened with starting IV steroids-pharmacy has intensified the insulin regimen and steroids are being tapered down-glucose is now improved. - Defer to pharmacy - Still on insulin gtt on 12/17 -> Sugars still variable, up to 350 this morning. (13) Ileus: He has not had a bowel movement throughout his hospital stay. He has been given lactulose on several occasions, continues on docusate 100 mg twice daily per OG tube as well as sennosides 8.8 mg once daily. - His feeds are only on trickle. - Continue docusate, senna, lactulose per ICU team. (14) DVT prophylaxis: Heparin 5,000 units SQ Q8h Admission and Anticipated Discharge Date Admission Date: December 05, 2019 Subjective Intubated and sedated. Due to patient's concern for coronavirus, ICU-status, and hospital policy, I did not enter the patient's room. I did assess the patient's mechanical ventilation settings, his/her respiratory status, and discussed his/her care with the RN and ICU attending. Review of Systems Review of Systems: Unobtainable due to endotracheal tube and Unobtainable due to reduced consciousness Physical Exam Constitutional: + lethargic ENMT: external ear and nose normal, oropharynx normal (Intubated) Respiratory: + respiratory distress and + labored breathing Cardiovascular: Rate/Rhythm: regular rate and regular rhythm Gastrointestinal (Abdomen): Inspection/Auscultation: abdomen normal to inspection; abdomen not distended Neurologic: + obtunded; + not awake Psychiatric: Orientation: + not alert Results & Data Results & Data ([facility]) Vital Signs (Past 12 Hours) Vital Signs Temp Pulse Resp BP Pulse Ox 12/18/19 08:00 73 12/18/19 07:08 73 27 H 91 12/18/19 04:51 75 22 91 12/18/19 04:00 36.9 C 75 94 12/18/19 03:45 68 26 H 95 12/18/19 03:22 67 117/69 94 12/18/19 03:00 68 91 12/18/19 02:21 36.7 C 68 99/52 L 95 12/18/19 02:00 70 95 12/18/19 01:21 72 87/56 L 95 12/18/19 01:00 36.2 C L 74 93 12/18/19 00:49 71 134/66 95 12/18/19 00:21 36.2 C L 70 95/55 L 92 12/18/19 00:18 150 H 100/50 L 12/18/19 00:00 104 H 95/67 L 94 12/17/19 23:54 109 H 129/84 94 12/17/19 23:20 36.2 C L 115 H 131/67 94 12/17/19 23:17 112 H 119/83 94 12/17/19 23:08 116 H 29 H 93 PG Care Time/CCT Total # of Minutes Spent Total Time Spent with Patient: Total time spent is greater than 50% in coordination of care (as documented) at patient's floor/unit and/or counseling patient: Coding Level of Care Code 03537 Subseq Hosp Care Lvl 3 Diagnoses Afib I48.91 Acute respiratory failure with hypoxia J96.01 ARDS (adult respiratory distress syndrome) J80 Suspected 2019 novel coronavirus infection R68.89 Sepsis A41.9 Acute renal failure (ARF) N17.9 Acute renal failure type: unspecified Hypertension I10 Chronic obstructive pulmonary disease J44.9 Current smoker F17.200 Gastroesophageal reflux disease K21.9 Gout M10.9 Diabetes mellitus type II, uncontrolled E11.65 Ileus K56.7 DVT prophylaxis Z29.9 (1) Acute renal failure (ARF) Acute renal failure type: unspecified Qualified Code(s): N17.9 - Acute kidney failure, unspecified
--- NOTE | 2019-12-18 11:04 | Pharmacy Report ---
Pharmacy Abx Dose Short Note - Date of Service December 18, 2019 - Assessment & Plan Assessment 64 year old M receiving vancomycin/zosyn for treatment of possible VAP. Day # 2 of antimicrobial therapy. Has previously received doxy, rocephin, cefepime, and caspofungin during admission. Patient received HD yesterday prior to loading dose of vanc. No HD planned for today and per provider note there may be access issues in the future. Will order another AM level for tomorrow to assess clearance. Plan Vancomycin * Random level is 23.9 mcg/mL * Will not redose today as no planned HD, but wait to assess random level tomorrow * Goal trough level : 15 to 20 mcg/mL * Random level ordered for: 12/19/19 with AM labs Pharmacy will continue to follow and will adjust dose/frequency as necessary. Thank you.
[2019-12-18] MEDS ORDERED: METOPROLOL TARTRATE 1 MG/ML VIAL IV STA (11:33)
[2019-12-18] MEDS ORDERED: METOPROLOL TARTRATE 1 MG/ML VIAL IV ONE ×2 (11:36→11:48)
[2019-12-18] MEDS ORDERED: STAT IV Infusion **Titration per Protocol STA ×2 (11:58→15:49)
[2019-12-18] MEDS ORDERED: 0.2 MICRON FILTER SET 1 EA IV ONE (11:58)
[2019-12-18] MEDS ORDERED: AMIODARONE IV BOLUS & DRIP IV STA (11:58)
[2019-12-18] MEDS ORDERED: AMIODARONE / D5W 150 MG/100 ML BAG IV ONE (12:15)
[2019-12-18] MEDS: AMIODARONE 450 MG in D5W 250ML IN *POLYOLEFIN BAG* 241 ML IV SCH ×2 (12:23→20:10)
[2019-12-18] MEDS ORDERED: METOPROLOL TARTRATE 25 MG TAB PO SCH (14:00)
--- NOTE | 2019-12-18 14:02 | Pharmacy Report ---
Pharmacy Glycemic Short Note 2 - Date of Service December 18, 2019 - Glycemic Short BSG Results (Last 24 hours): 12/17/19 12/17/19 12/17/19 15:02 20:38 20:44 Glucose POC Glucose 251 H 400 H* 399 H* POC Glucose (other) 12/17/19 12/17/19 12/17/19 20:59 21:43 23:27 Glucose 441 H* POC Glucose 465 H* 440 H* POC Glucose (other) 12/17/19 12/18/19 12/18/19 23:36 03:32 04:10 Glucose 478 H* 298 H POC Glucose 353 H* POC Glucose (other) 12/18/19 12/18/19 08:06 11:28 Glucose POC Glucose 138 H POC Glucose (other) 201 H OUTPATIENT ANTIDIABETIC REGIMEN: Per med rec: * Lantus 54 units SQ qPM * Glimepiride, linagliptin, and metformin * A1c = 9.4% 12/06/19 ASSESSMENT: * 64 yo male admitted to the ICU for ARDS, COVID-19 testing NEGATIVE, although still suspicion for COVID-19 infection * Pt is requiring pressor support with levophed and maintained on fentanyl and versed via continuous infusion. Temporary dialysis cath placed to maintain fluid balance in the setting of oliguric JACQUELINE with ATN. * PMH significant for T2DM, tobacco use, COPD, ASA and obesity 12/17: * Patient received >200 units yesterday. Overnight, patients BSG uptrended significantly and lantus scale, novolog CF and IV inuslin bolus were adjusted. * Change in TF formula may have contributed to this spike in BSGs * 0800 and 1200 BSGs downtrended nicely (201-> 138) with increased doses of novolog and lantus. Will await 1600 BSG. If continues to downtrend, suggest loosening novolog scale somewhat. I am hesitant to do this now given how difficult BSGs have been to control. It was communicated to the nurse to touch base with the pharmacy if they 1600 BSG decreased further, as novolog scale would likely be altered. * Patient will no receive HD today, and further HD remains unclear due to access issues * Continues on methylprednisolone 40 once daily 12/16 * Patient received 179 units of insulin yesterday with better control- BSGs ranging from 153-261 mg/dL (trended up with tf advance) * Will continue current lantus parameters as have seen an improvement in BSG control and insulin use trending down, however, changes in TF today * TF at goal overnight, carb ratio tightened to 2 as BSGs increased with advancement, and improved with this change, BSG 183 mg/dL at morning check. TF changing to novosource renal 2.0 which will provide a higher carb amount, will continue to monitor * Continues on IV solu-medrol 40 mg once daily. Patient will receive HD today. 12/14 * Patient received 238 units of insulin yesterday * BSGs ranged from 178-270 mg/dL; fasting BSG trending down to 219 this AM. * Patient remains on vent, Versed gtt restarted secondary to ventilator asynchrony. Levophed running at 0.01 mcg/kg/min. * Trophic tube feeds continue. IV steroids decreased to Solu-Medrol 40 mg once daily. Patient will receive HD today. * Have been using IV boluses of insulin instead of an insulin infusion per provider request due to demand for PPE when on q1h accuchecks. Hold paramet ers in place to ensure K does not fall to < 4. * Will decrease in IV steroids and Levophed dose, expect BSGs to improve today, no changes at this time. 12/13 * Gideon received 277 units of insulin yesterday (IV pushes + SQ) * BSGs were in the 300s yesterday but are finally starting to improve today. Down to 228 this morning. * Patient remains on vent, not responding to tactile stimuli so Versed drip placed on hold. Levophed at 0.02 mcg/kg/min. * Trophic tube feeds continue. IV steroids remain at Solu-medrol 40 mg q12h. Patient will receive HD today. * Have been using IV boluses of insulin instead of an insulin infusion per provider request due to demand for PPE when on q1h accuchecks. Hold parameters in place to ensure K does not fall to < 4. 12/12: * Patient received 179 units of insulin yesterday, BSGs have ranged in the upper 200s, low 300s- seem to be holding at this level * Trophic TFs continue, steroids were decreased from methylpred 60 mg q12 to 40 mg q12 * Provider would like to continue with IV boluses every 4 hours in addition to SQ basal/bolus rather than initiating insulin drip, therefore will continue to increase lantus, tighten correction factor, ? absorption issues with levophed * Patient will not receive HD today, will need to monitor K with IV insulin administration, continue to monitor, reviewed dextrose containing medications, switched doxycycline to NS diluent, new norepinephrine bag just hung but can consider switching to NS (concentration up to 16 mcg/mL) with next bag change 12/11: * Patient received 137 units of insulin yesterday (80 basal, 57 bolus). BSGs continue to uptrend, despite aggressive increases in insulin * Trophic TFs continue and IV steroids were started yesterday (likely to continue with an eventual taper) * Discussed with the provider and nurse and ideally an insulin infusion would be initiated, but given significant logistical considerations, we will continue SQ basal/bolus and add q4 hour IV regular insulin boluses. Will continue to m onitor this and make adjustments as needed. Will utilize a weight based stress of three lantus dose. This may need to be increased further, but will wait to see effects of IV regular insulin boluses. Will further tighten novolog correction factor. 12/10: * Patient received 61 units of insulin yesterday (37 basal, 24 bolus). Insulin requirements increasing, BSGs trending upward into the 200s. * Patient also starting methylpred 60 mg q12H, will attempt to avoid insulin infusion but if BSGs further increased may need to start * Patients receiving steroids equivalent to prednisone 40 mg daily and above typically require an additional 0.4 units/kg of insulin in addition to basal needed, however, will be conservative and increase total possible lantus dose to ~.25 units/kg above home regimen. * AM BSG 207, still on trophic tube feeds. Tighten correction factor for now. 12/08: * Patient received a total of 29 units of insulin yesterday (25 basal, 4 bolus). Still requiring much less than home needs indicate. Will monitor. * BSGs well controlled today * Patient was started on trophic tube feeds. I don't anticipate this effecting BSGs too much, until rate/diet is advanced, will defer carb coverage for now. 12/07 * Since the time of admission, patient has been given two doses of Lantus (20 units on 4/2 PM and 15 units on 12/06 PM). Fasting BSG of 184 mg/dL this am. I would have expected this to be higher based on home dose of Lantus. * will schedule Lantus q12 based on BSG scale * Add Novolog coverage q4h - will utilize stress of 3 dosing due to above stressors and critical illness PLAN FOR INPATIENT GLYCEMIC CONTROL: * Continue to hold outpatient oral diabetes medications * Basal insulin * 65 units given this morning * Lantus this evening per the following scale: * 35 units for BSG < 140 mg/dL * 45 units for BSG 140-220 mg/dL * 55 units for BSG 220 or above * Bolus insulin * NovoLog per scale q4h * Goal Range: Low 110 mg/dL - High 140 mg/dL * Correction Factor: 4 mg/dL/unit * Nutritional / Prandial insulin-- carb ratio of 1 unit per 2 grams CHO consumed Regular insulin: 5 units IV q4h (Hold for BSG < 220 or potassium < 4) PLAN FOR DISCHARGE: * pending
--- NOTE | 2019-12-18 14:35 | Electrocardiogram Report ---
Test Reason : Blood Pressure : / mmHG Vent. Rate : 118 BPM Atrial Rate : 147 BPM P-R Int : 000 ms QRS Dur : 092 ms QT Int : 314 ms P-R-T Axes : 000 034 143 degrees QTc Int : 440 ms Poor data quality, interpretation may be adversely affected Atrial fibrillation with rapid ventricular response Abnormal ECG When compared with ECG of 17-DEC-2019 05:56, Atrial fibrillation has replaced Sinus rhythm Confirmed by Kris Justice ([id number]) on 12/18/2019 2:34:52 PM Referred By: REFERRED SELF Confirmed By:Kris Justice
[2019-12-18] MEDS ORDERED: PROPOFOL BOLUS FROM BAG IV PRN (15:49)
[2019-12-18] MEDS: NOVASOURCE RENAL 2.0 CAL 1000ML BAG OG SCH (17:12)
[2019-12-18] MEDS: propofoL 1,000 MG/100 ML VIAL IV SCH (17:13)
[2019-12-18] MEDS ORDERED: AMIODARONE RATE CHANGE ONE (18:25)
[2019-12-18] MEDS: METOPROLOL TARTRATE 25 MG TAB PO SCH (20:13)
[2019-12-19] MEDS: PIPERACILLIN/TAZOBACTAM 4.5 GM in DEXTROSE 5% 100 ML IV SCH ×2 (00:30→12:29)
[2019-12-19] MEDS: INSULIN ASPART 100 UNITS/ML 3 ML PEN SQ SCH ×6 (01:05→22:03)
[2019-12-19] MEDS: INSULIN HUMAN REGULAR PER UNIT 5 UNITS in SYRINGE 4.95 ML IV SCH ×6 (01:21→22:03)
[2019-12-19] MEDS ORDERED: METOPROLOL TARTRATE 1 MG/ML VIAL IV STA ×2 (03:30→22:14)
[2019-12-19] MEDS: HEPARIN SOD 5,000 UNIT/0.5 ML VIAL SQ SCH ×3 (03:42→20:20)
[2019-12-19 04:06] LABS: iSTAT Art Bld Gas pCO2 Correct 32 mmHg (35-46); iSTAT Art Bld Gas pH Corrected 7.368 (7.35-7.45); iSTAT Arterial Blood Gas HCO3 19 meg/L (19-24); iSTAT Arterial Blood Gas pCO2 32 mmHg (35-46); iSTAT Arterial Blood Gas pH 7.37 (7.35-7.45); iSTAT Arterial Blood Gas pO2 69 mmHg (80-95); iSTAT Arterial Blood Gas pO2 C 71; iSTAT Carbon Dioxide 19 mmol/L (24-31); iSTAT Hematocrit 35 % (42-52); iSTAT Hemoglobin 11.9 g/dl (14.0-18.0); iSTAT Potassium 4.1 mmol/L (3.3-5.0); iSTAT Site Art Line; iSTAT Sodium 133 mmol/L (135-144)
[2019-12-19 04:16] LABS: Hematocrit (blood only) 34.8 % (42-52); Hemoglobin 11.5 g/dL (14.0-18.0); Mean Corpuscular Hemoglobin 29.6 pg (25-34); Mean Corpuscular Volume 89.7 fL (80-100); Mean Platelet Volume 9.9 fL (7.4-10.4); Platelet Count 328 K/uL (130-400); RDW Coefficient of Variation 14.8 % (11.5-14.5); RDW Standard Deviation 46.6 fL (36.4-46.3); Red Blood Count 3.88 M/uL (4.7-6.1); White Blood Count 24.61 K/uL (4.8-10.8)
[2019-12-19 05:04] LABS: BUN Creatinine Ratio 33.1 (10-20); Calcium 8.3 mg/dl (8.5-10.1); Creatinine Clr Calc Pharmacy 19.2 ml/min; Est GFR (African American) 14.9; Est GFR (Non-African American) 12.8; Magnesium 2.9 mg/dl (1.8-2.4); Phosphorus 9.4 mg/dl (2.5-4.9)
[2019-12-19 05:18] LABS: Beta-Hydroxybutyrate 1.21 mg/dl (0.2-2.81)
[2019-12-19 05:46] LABS: Basophils # (auto) 0.01 K/uL (0-0.2); Immature Granulocytes % (auto) 0.8 %; Lymphocytes # (auto) 1.52 K/uL (1.2-3.4); Lymphocytes % (auto) 6.2 %; Monocytes # (auto) 0.44 K/uL (0.11-0.59); Monocytes % (auto) 1.8 %; Neutrophils # (auto) 22.44 K/uL (1.4-6.5); Neutrophils % (auto) 91.2 %
[2019-12-19] MEDS: METOPROLOL TARTRATE 25 MG TAB PO SCH (05:56)
[2019-12-19] MEDS: ACETAMINOPHEN 500 MG TAB PO PRN ×2 (05:56→10:22)
[2019-12-19] MEDS: PROSOURCE NO CARB 30 ML/PKT OG SCH ×3 (05:57→20:19)
--- NOTE | 2019-12-19 08:58 | Procedure Note ---
Procedure Note Date of Service December 19, 2019 CENTRAL LINE PROCEDURE NOTE: Procedure: Hemodialysis access Central Line Placement Provider: Rick Shearer MD Indication: Central Drug Administration, Poor Venous Access, Multiple Lab Draws Necessary, etc. Anesthesia: 4 mL]Lidocaine 1% Site: Right internal jugular Consent was signed and placed on the chart prior to procedure. Indication, risks, and benefits were explained at length to the patient's . Telephone consent was obtained due to coronavirus restrictions. Consent verified via nurse.. A time-out was completed verifying correct patient, procedure, site, positioning, and implants(s) or special equipment if applicable. Patients right neck was cleansed and draped in the typical sterile fashion using Chloraprep. The Internal Jugular Vein and Carotid Artery were identified using ultrasound. The superficial tissue was anesthetized using 4 mL of 1% lidocaine without epinephrine under direct visualization with the ultrasound. After adequate anesthetization was achieved, the Internal Jugular vein was cannulated under direct ultrasound guidance using an introducer needle on a syringe. Good venous blood return was maintained prior to removal of syringe from introducer needle. Using Seldinger Technique, a guide wire was advanced through the introducer needle without resistance. The introducer needle was removed and ultrasound images were obtained of the guide wire within the Internal Jugular Vein and saved to the patients medical record. A small incision was made in penetrating fashion at the guide wire insertion site utilizing an 11 blade scalpel. The serial dilators were advanced to the vessel without resistance. The final dilator was exchanged for the triple lumen catheter which was advanced into the vessel without resistance. The guide wire was removed intact from the catheter without issue. Claves were placed on each catheter tip with confirmation of good blood flow from each lumen. Each port was easily flushed with sterile saline. The catheter was placed at the hub and sutured in place. BioPatch was applied to the catheter and a sterile Tegaderm dressing was applied over the catheter with careful attention to sterility. Patient tolerated procedure well. No immediate complications were met. Post procedure x-ray is currently pending. Images obtained are saved for permanent record Procedural Ultrasound Guidance: Procedure Date: 12/19/2019 Indication: Hemodialysis central venous access catheter placement guidance Proceduralist: Rick Shearer MD Artery AND Vein visualized: Yes Compressible Vein: Yes Guidewire or Short Catheter seen in vein prior to dilation: Yes Line confirmed in Vein with ultrasound: Yes Images obtained are saved for permanent record. Coding CPT Codes Tubes, Drains, and Vasc Access - Tubes, Drains, and Vasc Access: [id number] Insertion of cannula for hemodialysis ([id number]) Tubes, Drains, and Vasc Access - Tubes, Drains, and Vasc Access: [id number] Ultrasound Guidance For Vascular ([id number]) [facility] [place]) Tubes, Drains, and Vasc Access Procedure 1: Tubes, Drains, and Vasc Access: [id number] Insertion of cannula for hemodialysis Procedure 2: Tubes, Drains, and Vasc Access: [id number] Ultrasound Guidance For Vascular
--- NOTE | 2019-12-19 09:37 | Nephrology Progress Note ---
Date of Service December 19, 2019 Assessment & Plan (1) JACQUELINE (acute kidney injury): -- Baseline Cr 1.4. JACQUELINE due to ischemic ATN. Renal US negative for obstruction. Urinalysis w/ 2+ protein, microscopic hematuria and pyuria. Vasculitis evaluation was negative -- Nonoliguric. Will continue Furosemide 40 mg IV BID to promote diuresis -- ICU team has removed R femoral dialysis catheter and placed a R IJ THC. CXR report & film reviewed - no pneumothorax -- Will provide HD today for correction of azotemia and attempt 1 L UF -- Will order PRP for am (2) ARDS (adult respiratory distress syndrome): -- Biofire and COVID testing negative. Etiology of ARDS unclear. Patient remains mechanically ventilated and on droplet precautions -- Steroid therapy is being tapered. FiO2 reduced to 30% with PEEP 5 -- CXR film reviewed this am. R IJ THC in appropriate position. No pneumothorax. Subjective Mr. Hinkle was seen in the ICU. Examination withheld due to COVID-19 pandemic. Cause of ARDS is not yet defined. Patient remains mechanically ventilated and on droplet precautions. Plan of care was reviewed w/ ICU team this morning. Dialysis was held yesterday as patient's UO has improved and electrolyte balance was acceptable. This morning however, Cr has abruptly risen from 3.1 to 4.4 and BUN is 147. FiO2 has been reduced to 30% w/ PEEP 5. Patient is responding to diuretics. He produced 1100 cc UO yesterday. He remains on steroid therapy and Novosource Renal tube feeding. Review of Systems Review of Systems: Unobtainable due to endotracheal tube Physical Exam Physical Exam: PE not performed due to COVID 19 pandemic. Cause of ARDS not yet fully defined. Remains on droplet precautions. Attempting to preserve PPE. Print Buyer examined patient Results & Data Vital Signs (Past 12 Hours) Vital Signs Temp Pulse Resp BP Pulse Ox 12/19/19 08:00 122 H 28 H 94 12/19/19 06:00 122 H 153/72 H 94 12/19/19 05:00 139 H 175/86 H 90 12/19/19 04:41 137 H 145/88 H 90 12/19/19 04:21 114 H 143/109 H 90 12/19/19 04:00 115 H 90 12/19/19 03:40 123 H 30 H 92 12/19/19 03:38 131 H 166/89 H 12/19/19 03:00 139 H 94 12/19/19 02:00 127 H 120/86 93 12/19/19 01:00 131 H 93 12/19/19 00:30 119 H 29 H 93 12/19/19 00:21 37.4 C 132 H 137/93 93 12/19/19 00:00 122 H 94 12/18/19 23:00 120 H 161/79 H 95 12/18/19 22:00 125 H 156/78 H 93 CXR 12/19/19: 1. A right internal jugular central venous catheter is new from previous. No pneumothorax is seen post procedure. 2. Cardiomegaly with prominence of the pulmonary vasculature. Correlate clinically for evidence of fluid overload/mild congestive failure. 3. Bibasilar airspace consolidation is modestly increased from yesterday. 4. Suspect small pleural effusions. Laboratory Results Laboratory Tests 12/19/19 12/19/19 04:01 04:01 WBC 24.61 H Hgb 11.5 L Hct 34.8 L Plt Count 328 Sodium 130 L Potassium 4.0 Chloride 102 Carbon Dioxide 19 L BUN 147 H Creatinine 4.45 H D PG Care Time/CCT Total # of Minutes Spent Total Time Spent with Patient: Total time spent is greater than 50% in coordination of care (as documented) at patient's floor/unit and/or counseling patient: Coding Level of Care Code 68854 Subseq Hosp Care Lv 3 Diagnoses JACQUELINE (acute kidney injury) N17.9 ARDS (adult respiratory distress syndrome) J80
--- NOTE | 2019-12-19 09:40 | XRay Report ---
SINGLE VIEW CHEST CLINICAL HISTORY: Central venous catheter placement. FINDINGS: An AP, portable, upright chest radiograph is compared to study dated 12/18/2019. The examina tion is degraded by portable technique and patient rotation. An endotracheal tube, and enteric tube , and a left subclavian central venous catheter are unchanged in position. A right internal jugular c entral venous catheter is new from previous. The tip projects over the SVC. The heart is mildly enlar ged noting atherosclerotic calcification of the thoracic aorta. There is prominence of the pulmonary vasculature. Bilateral airspace consolidation has modestly progressed from previous. Small pleural ef fusions are suspected. No pneumothorax is seen. The bony thorax is grossly intact. IMPRESSION: 1. A right internal jugular central venous catheter is new from previous. No pneumothorax is seen pos t procedure. 2. Cardiomegaly with prominence of the pulmonary vasculature. Correlate clinically for evidence of fl uid overload/mild congestive failure. 3. Bibasilar airspace consolidation is modestly increased from yesterday. 4. Suspect small pleural effusions. ACT 112: Negative or not required by law. Electronically signed by: Wyatt Soto M.D. 12/19/2019 9:39 AM
[2019-12-19] MEDS ORDERED: HEPARIN SOD (PORCINE) 1000 UNIT/ML 10 ML VIAL IV SCH (10:00)
[2019-12-19] MEDS ORDERED: SODIUM CHLORIDE 0.9% 1000ML 1,000 ML IV PRN (10:00)
[2019-12-19] MEDS: methylPREDNISolone 40 MG in SYRINGE 0 ML IV SCH (10:22)
[2019-12-19] MEDS: FAMOTIDINE 20 MG in SYRINGE 3 ML IV SCH (10:22)
[2019-12-19] MEDS: DOCUSATE SODIUM SYRUP 100 MG/10 ML UDC NG SCH ×2 (10:23→21:57)
[2019-12-19] MEDS: MULTI VIT W/MINERALS LIQUID 15 ML UDP PO SCH (10:24)
[2019-12-19] MEDS: LACTULOSE SYRUP 30 GM/45 ML UDP PO SCH ×2 (10:24→21:56)
[2019-12-19] MEDS: fentaNYL DRIP 1,250 MCG/250 ML BAG IV SCH ×2 (10:26→10:27)
[2019-12-19] MEDS: propofoL 1,000 MG/100 ML VIAL IV SCH ×3 (10:26→13:32)
[2019-12-19] MEDS: INSULIN GLARGINE SOLOSTAR 100 UNITS/ML 3 ML PEN SC SCH ×2 (10:27→22:02)
[2019-12-19] MEDS: AMIODARONE 450 MG in D5W 250ML IN *POLYOLEFIN BAG* 241 ML IV SCH ×2 (10:40→12:34)
[2019-12-19] MEDS: NOREPINEPHRINE BIT INJ 16 MG in DEXTROSE 5% 500 ML IV SCH (11:50)
[2019-12-19] MEDS ORDERED: METOPROLOL TARTRATE 1 MG/ML VIAL IV PRN (12:15)
[2019-12-19] MEDS: METOPROLOL TARTRATE 1 MG/ML VIAL IV PRN ×3 (12:28→13:31)
[2019-12-19] MEDS: SENNA 8.8 MG/5 ML UDP NG SCH (12:49)
--- NOTE | 2019-12-19 13:10 | Pharmacy Report ---
Pharmacy Abx Dose Short Note - Date of Service December 19, 2019 - Assessment & Plan Assessment 64 year old M receiving vancomycin/zosyn for treatment of possible VAP. Patient to be dialyzed this afternoon. Will redose this evening and get another random level in the AM. Plan Vancomycin * Random level of 19 mcg/mL this morning, without HD, indicating some clearance. * Redose with 750 mg IV this evening after HD * Goal trough level : 15 to 20 mcg/mL * Trough or random level ordered for: 12/20/19with am labs Pharmacy will continue to follow and will adjust dose/frequency as necessary. Thank you.
[2019-12-19] MEDS: METOPROLOL TARTRATE 50 MG TAB PO SCH ×2 (13:16→22:00)
--- NOTE | 2019-12-19 13:20 | Hospitalist Progress Note ---
Date of Service December 19, 2019 Assessment & Plan (1) Afib: Went into afib with RVR on 12/16. Required cardioversion when he became hypotensive, but back into it. - Restarted on low-dose Levophed at that time. - Now on metoprolol tartrate 50 mg PO Q8h & amiodarone gtt (2) Acute respiratory failure with hypoxia: B/l pneumonia on chest x-ray. Clinical picture highly concerning for COVID-19, although two nasopharyngeal tests have come back negative for COVID-19 ([facility] on 12/04; [facility] on 12/07). No plans for further testing as this would not change treatment or prognosis at this time. - Intermittent proning per ICU. - Continues on vent. - Discussing with and possibly considering a trach. - Continues with hemodialysis to remove volume and help correct acidosis, treat azotemia -> New central line placed on 12/18. (3) ARDS (adult respiratory distress syndrome): As above, unclear etiology, COVID testing was negative from both [facility] and [facility]. - Started trial of IV steroids on 12/10 - continue to taper per pulmonary/ICU (4) Suspected 2019 novel coronavirus infection: See above in "acute hypoxic resp failure." - Biofire negative x 2 - Flu negative - COVID-19 negative on 12/27 from [facility] and on [facility] COVID test on 12/07. (5) Sepsis: Secondary to pneumonia. - Continue supportive care (6) Acute renal failure (ARF): Secondary to dehydration/sepsis/ATN. - Now on HD - Continue to hold MIKAEL and HCTZ - Appreciate nephrology consultation for hemodialysis management of renal failure (7) Hypertension: - Holding anti-hypertensives (HCTZ, ACEi, amlodipine, etc) for hypotension. (8) Chronic obstructive pulmonary disease: By history, but not on inhalers at home. (9) Current smoker: 50+ years of smoking per patient. (10) Gastroesophageal reflux disease: Pepcid once daily which is renal dosing (11) Gout: No recent issues. Not on prophylaxis. (12) Diabetes mellitus type II, uncontrolled: Hyperglycemic ICU protocol, hyperglycemia worsened with starting IV steroids-pharmacy has intensified the insulin regimen and steroids are being tapered down-glucose is now improved. - Defer to pharmacy - Now on basal-bolus on 12/18 -> Sugars still variable, up to 340 this morning. (13) Ileus: He has not had a bowel movement throughout his hospital stay. He has been given lactulose on several occasions, continues on docusate 100 mg twice daily per OG tube as well as sennosides 8.8 mg once daily. - Continue docusate, senna, lactulose per ICU team. (14) DVT prophylaxis: Heparin 5,000 units SQ Q8h Admission and Anticipated Discharge Date Admission Date: December 05, 2019 Subjective Unresponsive and intubated. Due to patient's possible coronavirus status, ICU-status, and hospital policy, I did not enter the patient's room. I did assess the patient's mechanical ventilation settings, his/her respiratory status, and discussed his/her care with the RN and ICU attending. Physical Exam Constitutional: + lethargic ENMT: external ear and nose normal, oropharynx normal (Intubated) Respiratory: + respiratory distress and + labored breathing Cardiovascular: Rate/Rhythm: + tachycardic and + irregularly irregular Gastrointestinal (Abdomen): Inspection/Auscultation: abdomen normal to inspection; abdomen not distended Neurologic: + obtunded; + not awake Psychiatric: Orientation: + not alert Results & Data Results & Data ([facility]) Vital Signs (Past 12 Hours) Vital Signs Pulse Resp BP Pulse Ox 12/19/19 12:28 143 H 163/77 H 12/19/19 11:46 143 H 27 H 89 L 12/19/19 11:00 163 H 89 L 12/19/19 10:00 132 H 88 L 12/19/19 09:21 135 H 182/94 H 89 L 12/19/19 08:53 122 H 152/102 H 12/19/19 08:21 127 H 163/106 H 96 12/19/19 08:00 122 H 28 H 94 12/19/19 07:00 122 H 94 12/19/19 06:00 122 H 153/72 H 94 12/19/19 05:00 139 H 175/86 H 90 12/19/19 04:41 137 H 145/88 H 90 12/19/19 04:21 114 H 143/109 H 90 12/19/19 04:00 115 H 90 12/19/19 03:40 123 H 30 H 92 12/19/19 03:38 131 H 166/89 H 12/19/19 03:00 139 H 94 12/19/19 02:00 127 H 120/86 93 PG Care Time/CCT Total # of Minutes Spent Total Time Spent with Patient: Total time spent is greater than 50% in coordination of care (as documented) at patient's floor/unit and/or counseling patient: Coding Level of Care Code 36136 Subseq Hosp Care Lvl 3 Diagnoses Afib I48.91 Acute respiratory failure with hypoxia J96.01 ARDS (adult respiratory distress syndrome) J80 Suspected 2019 novel coronavirus infection R68.89 Sepsis A41.9 Acute renal failure (ARF) N17.9 Acute renal failure type: unspecified Hypertension I10 Chronic obstructive pulmonary disease J44.9 Current smoker F17.200 Gastroesophageal reflux disease K21.9 Gout M10.9 Diabetes mellitus type II, uncontrolled E11.65 Ileus K56.7 DVT prophylaxis Z29.9 (1) Acute renal failure (ARF) Acute renal failure type: unspecified Qualified Code(s): N17.9 - Acute kidney failure, unspecified
--- NOTE | 2019-12-19 13:30 | Critical Care Progress Note ---
Date of Service December 19, 2019 Assessment & Plan (1) ARDS (adult respiratory distress syndrome): Impression: 64-year-old male with obesity, poorly controlled diabetes, COPD and ongoing tobacco abuse admitted with hypoxemic respiratory failure. He is progressed to multiorgan system dysfunction requiring initiation of renal replacement therapy and remains persistently ventilator dependent. ICU day #14 24-hour events: Patient has been off sedation since yesterday afternoon. He is occasionally coughing but not yet following commands. He did develop atrial fibrillation with rapid ventricular response which has persisted despite doses of IV metoprolol. He is been initiated on amiodarone. Metoprolol has been increased. He did have some urine output overnight with diuretics. Unfortunately BUN and creatinine have increased. His dialysis catheter was replaced this morning. He has had some mild bleeding around the dialysis catheter which was controlled with suture and Gelfoam. Dialysis to be done today. He remains off pressors and they were able to wean his PEEP and FiO2 down to 5 and 0.3 respectively. Recommendations: 1. Neuro: Likely toxic metabolic encephalopathy complicated by delayed clearance of high-dose sedatives and narcotics in the setting of renal failure with dialysis. Continue to hold Versed and fentanyl for now. If he requires additional sedation as we are waking him up, may consider trial of propofol. He reports a questionable egg allergy however I think it is reasonable to pursue a trial of this medication to see whether or not he has any adverse reaction. If he does not improve mental status in the next 48 hours of being off sedation, may consider additional work-up and evaluation 2. Cardiovascular: Atrial fibrillation with rapid ventricular response. Increasing metoprolol to 50 mg p.o. every 8. Continue amiodarone. His prior episodes of atrial fibrillation had been relatively short-lived and did not warrant a full systemic anticoagulation. Given his bleeding issue associated with the central venous catheter I would favor continuing subcu heparin for now but if bleeding issues should resolve and he remains in atrial fibrillation, consideration for transition to full dose intravenous heparin would be appropriate. Echocardiogram during this admission showed no significant regional wall abnormalities and a preserved ejection fraction without significant valvular dysfunction. Additional diuretics being administered by nephrology today. 3. Renal: Acute renal failure: Suspect ATN related to sepsis, pressor use in the setting of likely underlying kidney disease due to poorly controlled diabetes. Discussed with nephrology and plans to repeat dialysis today. Discussed with nutrition as we may potentially be overfeeding resulting in a positive nitrogen balance and significant increase in BUN. Nutrition to adjust tube feeding. Unable to do indirect calorimetry due to the patient being on dialysis currently and equipment not being available in this facility. 4. Pulmonary: Acute hypoxemic respiratory failure: Unclear precipitant. COVID testing was negative on presentation. Suspect ventilator associated pneumonia given his fever and white blood cell count as well as elevated procalcitonin. He is been initiated on vancomycin and Zosyn, day # 3. Culture data shows normal monie. Given the fact that his fevers have resolved and his white count appears to be decreasing we will continue antibiotics for now but may be able to discontinue vancomycin in the next 24 hours. PEEP and FiO2 currently are at a position where we could consider transition to pressure support ventilation however the patient's neurological status would preclude extubation currently. Continue steroids for late-phase ARDS. If mental status persist to be an obsta roxanne to extubation, may consider tracheostomy however this would require repeat assessment of COVID status. 5. ID: Probable ventilator associated event, day #3 vancomycin and Zosyn. Follow blood cultures 6. GI: Continue aggressive bowel protocol. Tolerating tube feeds at goal. 7. Heme-onc: Mild anemia today but stable. No indication for transfusion. Continue to trend white blood cell count 8. Endo: Continue glycemic control. This is been hampered by concomitant steroids as well as tube feeds. He is on high-dose Lantus. Per pharmacy protocol 9. Prophylaxis: The patient is maintained on H2 kristian as well as subcu heparin. Continue for now. 10. Skin: Decubitus ulcer. Wound consult management in place. Patient is using a low pressure air mattress. We will continue to stage wound as eschar resolves. Disposition: I updated the patient's , Pretty, today via phone conversation. She was updated on the patient's clinical course and care plan for today. Patient's overall prognosis remains guarded however he appears to be making progress with regards to hemodynamics and ventilator settings currently. Hopefully his neurological status will show improvement over the next 24 to 48 hours and allow for potential trial of extubation. (2) JACQUELINE (acute kidney injury): (3) Sepsis: (4) Metabolic encephalopathy: (5) Acute respiratory failure with hypoxia: (6) Diabetes mellitus type II, uncontrolled: Admission and Anticipated Discharge Date Admission Date: December 05, 2019 Subjective Intubated and sedated Review of Systems Review of Systems: Unobtainable due to endotracheal tube Physical Exam Constitutional: + mechanically ventilated and + overweight Eyes: PERRL Neck: trachea midline, no thyromegaly Respiratory: Coarse rhonchi bilaterally. No wheezing. Cardiovascular: Rate/Rhythm: regular rate and + tachycardic Heart Sounds: normal S1 and normal S2; no murmur Extremities: + edema Gastrointestinal (Abdomen): normal bowel sounds, soft, nontender, no hepatosplenomegaly Musculoskeletal: no cyanosis or clubbing, extremities motor strength 5/5 Skin: Sacral erythema consistent with decubitus ulcer. Eschar in place which does not permit accurate staging currently Results & Data Results & Data ([facility]) Vital Signs (Past 12 Hours) Vital Signs Pulse Resp BP Pulse Ox 12/19/19 12:28 143 H 163/77 H 12/19/19 11:46 143 H 27 H 89 L 12/19/19 11:00 163 H 89 L 12/19/19 10:00 132 H 88 L 12/19/19 09:21 135 H 182/94 H 89 L 12/19/19 08:53 122 H 152/102 H 12/19/19 08:21 127 H 163/106 H 96 12/19/19 08:00 122 H 28 H 94 12/19/19 07:00 122 H 94 12/19/19 06:00 122 H 153/72 H 94 12/19/19 05:00 139 H 175/86 H 90 12/19/19 04:41 137 H 145/88 H 90 12/19/19 04:21 114 H 143/109 H 90 12/19/19 04:00 115 H 90 12/19/19 03:40 123 H 30 H 92 12/19/19 03:38 131 H 166/89 H 12/19/19 03:00 139 H 94 12/19/19 02:00 127 H 120/86 93 Laboratory Results 12/19/19 04:01 12/19/19 04:01 Diagnostic Findings Chest x-ray from today was independently reviewed after placement of hemodialysis line. The line appears to be in good position. There are hazy increased vascular markings on the right greater than left. No pleural effusion. No pneumothorax. Mild cardiomegaly persists Coding Level of Care Code Critical Care 1st 30-74 mins Diagnoses ARDS (adult respiratory distress syndrome) J80 JACQUELINE (acute kidney injury) N17.9 Sepsis A41.9 Metabolic encephalopathy G93.41 Acute respiratory failure with hypoxia J96.01 Diabetes mellitus type II, uncontrolled E11.65 Time Spent (min) 45 Comment Critical care time managing life-threatening illness exclusive of procedures
[2019-12-19] MEDS ORDERED: ACETAMINOPHEN 325 MG TAB PO PRN (13:57)
[2019-12-19] MEDS: HEPARIN SOD (PORCINE) 1000 UNIT/ML 10 ML VIAL IV SCH (18:14)
[2019-12-19] MEDS ORDERED: PROSOURCE NO CARB 30 ML/PKT OG SCH (20:00)
[2019-12-19] MEDS ORDERED: VANCOMYCIN HCL 500 MG in SODIUM CHLORIDE 0.9% 250 ML IV SCH (20:00)
[2019-12-19] MEDS ORDERED: VANCOMYCIN HCL 750 MG in SODIUM CHLORIDE 0.9% 250 ML IV SCH (20:00)
[2019-12-19] MEDS ORDERED: METOPROLOL TARTRATE 1 MG/ML VIAL IV ONE (22:16)
[2019-12-20] MEDS: PIPERACILLIN/TAZOBACTAM 4.5 GM in DEXTROSE 5% 100 ML IV SCH ×2 (00:14→11:33)
[2019-12-20] MEDS: INSULIN HUMAN REGULAR PER UNIT 5 UNITS in SYRINGE 4.95 ML IV SCH ×3 (00:14→08:04)
[2019-12-20] MEDS: INSULIN ASPART 100 UNITS/ML 3 ML PEN SQ SCH ×6 (00:15→20:17)
[2019-12-20 04:21] LABS: iSTAT Art Bld Gas pCO2 Correct 28 mmHg (35-46); iSTAT Art Bld Gas pH Corrected 7.496 (7.35-7.45); iSTAT Arterial Blood Gas HCO3 21 meg/L (19-24); iSTAT Arterial Blood Gas pCO2 28 mmHg (35-46); iSTAT Arterial Blood Gas pO2 60 mmHg (80-95); iSTAT Arterial Blood Gas pO2 C 60; iSTAT Carbon Dioxide 22 mmol/L (24-31); iSTAT FiO2 30 %; iSTAT Hematocrit 31 % (42-52); iSTAT Hemoglobin 10.5 g/dl (14.0-18.0); iSTAT Site Art Line; iSTAT Sodium 135 mmol/L (135-144)
[2019-12-20] MEDS: AMIODARONE 450 MG in D5W 250ML IN *POLYOLEFIN BAG* 241 ML IV SCH ×3 (04:32→19:48)
[2019-12-20] MEDS: NOVASOURCE RENAL 2.0 CAL 1000ML BAG OG SCH (04:32)
[2019-12-20] MEDS: HEPARIN SOD 5,000 UNIT/0.5 ML VIAL SQ SCH ×3 (04:33→20:17)
[2019-12-20] MEDS: METOPROLOL TARTRATE 50 MG TAB PO SCH ×3 (04:34→22:19)
[2019-12-20 04:57] LABS: Hematocrit (blood only) 34.2 % (42-52); Hemoglobin 11.3 g/dL (14.0-18.0); Mean Corpuscular Hemoglobin 29.3 pg (25-34); Mean Corpuscular Volume 88.6 fL (80-100); Mean Platelet Volume 10.1 fL (7.4-10.4); Platelet Count 310 K/uL (130-400); RDW Coefficient of Variation 14.9 % (11.5-14.5); RDW Standard Deviation 45.8 fL (36.4-46.3); Red Blood Count 3.86 M/uL (4.7-6.1); White Blood Count 22.79 K/uL (4.8-10.8)
[2019-12-20 05:13] LABS: BUN Creatinine Ratio 32.8 (10-20); Calcium 7.7 mg/dl (8.5-10.1); Est GFR (African American) 23.3; Est GFR (Non-African American) 20.1; Magnesium 2.3 mg/dl (1.8-2.4); Phosphorus 7.5 mg/dl (2.5-4.9)
[2019-12-20 05:22] LABS: Basophils # (auto) 0.01 K/uL (0-0.2); Immature Granulocytes # (auto) 0.28 K/uL (0.00-0.02); Immature Granulocytes % (auto) 1.2 %; Lymphocytes # (auto) 1.93 K/uL (1.2-3.4); Lymphocytes % (auto) 8.5 %; Monocytes # (auto) 0.93 K/uL (0.11-0.59); Monocytes % (auto) 4.1 %; Neutrophils # (auto) 19.64 K/uL (1.4-6.5); Neutrophils % (auto) 86.2 %
[2019-12-20] MEDS: propofoL 1,000 MG/100 ML VIAL IV SCH ×3 (07:38→17:30)
[2019-12-20] MEDS: SENNA 8.8 MG/5 ML UDP NG SCH (07:39)
[2019-12-20] MEDS: LACTULOSE SYRUP 30 GM/45 ML UDP PO SCH (07:39)
[2019-12-20] MEDS: FAMOTIDINE 20 MG in SYRINGE 3 ML IV SCH (08:03)
[2019-12-20] MEDS: PROSOURCE NO CARB 30 ML/PKT OG SCH ×4 (08:03→19:48)
[2019-12-20] MEDS: methylPREDNISolone 40 MG in SYRINGE 0 ML IV SCH (08:03)
[2019-12-20] MEDS: MULTI VIT W/MINERALS LIQUID 15 ML UDP PO SCH (08:03)
[2019-12-20] MEDS: DOCUSATE SODIUM SYRUP 100 MG/10 ML UDC NG SCH ×2 (08:04→19:46)
--- NOTE | 2019-12-20 09:04 | Critical Care Progress Note ---
Date of Service December 20, 2019 Assessment & Plan (1) ARDS (adult respiratory distress syndrome): Impression: 64-year-old male with obesity, poorly controlled diabetes, COPD and ongoing tobacco abuse admitted with hypoxemic respiratory failure. He progressed to multiorgan system dysfunction requiring initiation of renal replacement therapy and remains persistently ventilator dependent and course was complicated by atrial fibrillation with rapid ventricular response. ICU day #15 24-hour events: Patient with slow continued improvement over the last 24 hours. He remains free of vasopressor agents. Amiodarone had been continued and the patient converted to sinus rhythm early this morning. He did have some bleeding around the newly placed dialysis catheter which required stitch placement and Gelfoam. He tolerated dialysis and the newly placed dialysis catheter appeared to function well. He continues to remain on low FiO2 and PEEP with acceptable oxygen saturations. He did have an increased in liquid stool output and required placement of rectal catheter. Recommendations: 1. Neuro: Likely toxic metabolic encephalopathy complicated by delayed clearance of high-dose sedatives and narcotics in the setting of renal failure with dialysis. Holding all narcotics and benzodiazepines at this point time. If he requires additional sedation as we are waking him up, may consider trial of propofol. He reports a questionable egg allergy however I think it is reasonable to pursue a trial of this medication to see whether or not he has any adverse reaction. If he does not improve mental status in the next 48 hours of being off sedation and more aggressive dialysis to correct his elevated BUN, may consider additional work-up and evaluation 2. Cardiovascular: Atrial fibrillation with rapid ventricular response now resolved with amiodarone. We will continue amiodarone IV for an additional 24 hours and then likely transition to oral for 7 days.. Continue metoprolol to 50 mg p.o. every 8. Given self terminated event and short runs of atrial fibrillation as well as bleeding associated with uremic platelets, I think his risk of full anticoagulation is quite high at this point time and have elected to continue with subcu heparin. If he continues to have paroxysms of atrial fibrillation, will likely need to transition to full dose intravenous heparin would be appropriate. Echocardiogram during this admission showed no significant regional wall abnormalities and a preserved ejection fraction wit hout significant valvular dysfunction. Additional diuretics per nephrology today. 3. Renal: Acute renal failure: Suspect ATN related to sepsis, pressor use in the setting of likely underlying kidney disease due to poorly controlled diabetes. Discussed with nephrology and plans to repeat dialysis today. Tube feedings changed after discussion with nutrition and will continue to trend BUN. Unable to accurately early calculate nitrogen balance at this time. 4. Pulmonary: Acute hypoxemic respiratory failure: Unclear precipitant. COVID testing was negative on presentation. Treating for ventilator associated pneumonia given his fever and white blood cell count as well as elevated procalcitonin. Culture data shows normal monie. Given clinical improvement, will discontinue vancomycin at this point time but continue Zosyn with anticipated 7-day course. He is currently day 4 out of 7. Transition to pressure support ventilation this morning as the patient is pulling adequate tidal volumes. His blood gas showed a mild respiratory alkalosis which should improve with decreasing respiratory rate. If he demonstrates respiratory fatigue, tachypnea, or oxygen desaturation will transition back to CMV. Extubation precluded currently due to mental status. Will decrease Solu-Medrol to 20 mg daily with plans to taper over the next week or so 5. ID: Probable ventilator associated event, day #4 vancomycin and Zosyn. Follow blood cultures. Discontinue vancomycin and follow 6. GI: Now with excessive loose stools. Will discontinue lactulose and senna. Tolerating tube feeds at goal. 7. Heme-onc: Mild anemia today but stable. No indication for transfusion. Continue to trend white blood cell count 8. Endo: Continue glycemic control. This is been hampered by concomitant steroids as well as tube feeds. He is on high-dose Lantus. Per pharmacy protocol 9. Prophylaxis: The patient is maintained on H2 kristian as well as subcu heparin. Continue for now. 10. Skin: Decubitus ulcer. Wound consult management in place. Patient is using a low pressure air mattress. We will continue to stage wound as eschar resolves. Disposition: I updated the patient's , Pretty, today via phone conversation. She was updated on the patient's clinical course and care plan for today. Patient has shown some improvement over the last 24 to 48 hours. Continue current level of care. Patient remains critically ill with uncertain overall long-term prognosis. (2) JACQUELINE (acute kidney injury): (3) Sepsis: (4) Metabolic encephalopathy: (5) Acute respiratory failure with hypoxia: (6) Diabetes mellitus type II, uncontrolled: Admission and Anticipated Discharge Date Admission Date: December 05, 2019 Subjective Intubated and sedated Physical Exam Constitutional: + mechanically ventilated and + overweight Eyes: PERRL Neck: trachea midline, no thyromegaly Cardiovascular: Rate/Rhythm: regular rate and + tachycardic Heart Sounds: n ormal S1 and normal S2; no murmur Extremities: + edema Gastrointestinal (Abdomen): normal bowel sounds, soft, nontender, no hepatosplenomegaly Musculoskeletal: no cyanosis or clubbing, extremities motor strength 5/5 Skin: no rashes, warm and dry Neurologic: Sedation now off greater than 24 hours. The patient's eyes are open. He does not track to verbal or tactile stimulus. Corneal and pupillary reflexes are intact. No withdrawal to painful stimulus upper or lower extremities Results & Data Results & Data ([facility]) Vital Signs (Past 12 Hours) Vital Signs Temp Pulse Resp BP Pulse Ox 12/20/19 07:28 77 26 H 95 12/20/19 06:00 121 H 92 12/20/19 05:35 121 H 136/86 93 12/20/19 05:00 119 H 90 12/20/19 04:35 109 H 133/74 93 12/20/19 04:00 36.7 C 108 H 92 12/20/19 03:41 104 H 29 H 91 12/20/19 03:35 115 H 129/63 90 12/20/19 03:00 119 H 91 12/20/19 02:30 109 H 121/72 91 12/20/19 02:00 114 H 92 12/20/19 01:30 100 H 142/73 H 90 12/20/19 01:00 107 H 89 L 12/20/19 00:35 110 H 129/83 90 12/20/19 00:28 116 H 132/62 92 12/20/19 00:00 36.6 C 124 H 124/80 93 12/19/19 23:39 92 H 28 H 92 12/19/19 23:00 113 H 92 12/19/19 22:36 121 H 144/92 H 93 12/19/19 22:30 127 H 92 12/19/19 22:21 127 H 104/73 91 12/19/19 22:17 142 H 138/62 12/19/19 22:00 140 H 137/73 91 12/19/19 21:30 155 H 90 Laboratory Results 12/20/19 04:35 12/20/19 04:35 12/05/19 12/06/19 12/07/19 10:08 04:07 04:17 ABG pH 7.49 H 7.41 7.31 L ABG pCO2 29 L 39 47 H ABG pO2 67 L 101 H 55 L ABG HCO3 22 24 24 ABG O2 Saturation 94.1 97.8 H 83.8 L ABG Base Excess -0.6 -0.2 -2.8 12/08/19 12/13/19 12/14/19 04:12 04:18 04:16 ABG pH 7.27 L 7.31 L 7.33 L ABG pCO2 49 H 40 30 L ABG pO2 70 L 72 L 80 ABG HCO3 22 20 16 L ABG O2 Saturation 91.9 91.5 94.2 ABG Base Excess -5.2 -6.2 -9.3 L Diagnostic Findings No new imaging Coding Level of Care Code Critical Care 1st 30-74 mins Diagnoses ARDS (adult respiratory distress syndrome) J80 JACQUELINE (acute kidney injury) N17.9 Sepsis A41.9 Metabolic encephalopathy G93.41 Acute respiratory failure with hypoxia J96.01 Diabetes mellitus type II, uncontrolled E11.65 Time Spent (min) 45 Comment 45 minutes critical care time managing life-threatening illness
[2019-12-20] MEDS: FUROSEMIDE 40 MG in SYRINGE 0 ML IV SCH ×2 (09:57→17:49)
[2019-12-20] MEDS: INSULIN GLARGINE SOLOSTAR 100 UNITS/ML 3 ML PEN SC SCH ×2 (09:58→20:17)
[2019-12-20] MEDS ORDERED: FUROSEMIDE 40 MG in SYRINGE 0 ML IV ONE (10:00)
--- NOTE | 2019-12-20 10:25 | Nephrology Progress Note ---
Date of Service December 20, 2019 Assessment & Plan (1) JACQUELINE (acute kidney injury): -- Baseline Cr 1.4. JACQUELINE due to ischemic ATN. Renal US negative for obstruction. Urinalysis w/ 2+ protein, microscopic hematuria and pyuria. Vasculitis evaluation was negative -- Nonoliguric. Will continue Furosemide 40 mg IV BID to promote diuresis -- Will provide HD today for correction of azotemia. No UF. Hopefully rest over weekend and monitor electrolyte balance and UO -- Will order PRP for am (2) ARDS (adult respiratory distress syndrome): -- [employer] and COVID testing negative. Etiology of ARDS unclear. Patient remains on droplet precautions. Sedatives have been lifted and ICU team is attempting to wean patient from ventilator -- Steroid therapy is being tapered. FiO2 reduced to 30% with PEEP 5 Admission and Anticipated Discharge Date Admission Date: December 05, 2019 Subjective Mr. Hinkle was seen in the ICU. Limited exam performed via telehealth due to COVID- pandemic. Cause of ARDS is not yet defined. Patient remains mechanically ventilated and on droplet precautions. Plan of care was reviewed w/ ICU team this morning. Dialysis was provided yesterday for 4 hours w/ 1L UF. R IJ THC functioned properly. There were no complications. Patient is responding to diuretics. He produced 1100 cc UO yesterday. FiO2 has been reduced to 30% w/ PEEP 5. ICU has lifted sedation and is attempting to wean patient from the ventilator. He remains on steroid therapy and Novosource Renal tube feeding. Review of Systems Review of Systems: Unobtainable due to endotracheal tube Physical Exam Physical Exam: Cause of ARDS not yet fully defined. Remains on droplet precautions. Gasket Former examined patient and brief exam performed via tele ealt w/ RN assistance due to COVID- pandemic and need to preserve PPE Results & Data ([facility]) Vital Signs (Past 12 Hours) Vital Signs Temp Pulse Resp BP Pulse Ox 12/20/19 07:28 77 26 H 95 12/20/19 06:00 121 H 92 12/20/19 05:35 121 H 136/86 93 12/20/19 05:00 119 H 90 12/20/19 04:35 109 H 133/74 93 12/20/19 04:00 36.7 C 108 H 92 12/20/19 03:41 104 H 29 H 91 12/20/19 03:35 115 H 129/63 90 12/20/19 03:00 119 H 91 12/20/19 02:30 109 H 121/72 91 12/20/19 02:00 114 H 92 12/20/19 01:30 100 H 142/73 H 90 12/20/19 01:00 107 H 89 L 12/20/19 00:35 110 H 129/83 90 12/20/19 00:28 116 H 132/62 92 12/20/19 00:00 36.6 C 124 H 124/80 93 12/19/19 23:39 92 H 28 H 92 12/19/19 23:00 113 H 92 12/19/19 22:36 121 H 144/92 H 93 12/19/19 22:30 127 H 92 Laboratory Results Laboratory Tests 12/20/19 12/20/19 04:35 04:35 WBC 22.79 H Hgb 11.3 L Hct 34.2 L Plt Count 310 Sodium 132 L Potassium 3.0 L D Chloride 102 Carbon Dioxide 21 BUN 101 H Creatinine 3.07 H D Glucose 199 H PG Care Time/CCT Total # of Minutes Spent Total Time Spent with Patient: Total time spent is greater than 50% in coordination of care (as documented) at patient's floor/unit and/or counseling patient: Coding Level of Care Code 91446 Subseq Hosp Care Lvl 3 Diagnoses JACQUELINE (acute kidney injury) N17.9 ARDS (adult respiratory distress syndrome) J80
--- NOTE | 2019-12-20 12:50 | Pharmacy Report ---
Pharmacy Glycemic Short Note 2 - Date of Service December 20, 2019 - Glycemic Short BSG Results (Last 24 hours): 12/19/19 12/19/19 12/19/19 13:00 16:42 20:32 Glucose POC Glucose 188 H 172 H 173 H 12/19/19 12/20/19 12/20/19 23:31 04:05 04:35 Glucose 199 H POC Glucose 162 H 199 H 12/20/19 12/20/19 08:15 11:54 Glucose POC Glucose 126 H 139 H OUTPATIENT ANTIDIABETIC REGIMEN: Per med rec: * Lantus 54 units SQ qPM * Glimepiride, linagliptin, and metformin * A1c = 9.4% 12/06/19 ASSESSMENT: * 64 yo male admitted to the ICU for ARDS, COVID-19 testing NEGATIVE, although still suspicion for COVID-19 infection * Pt is requiring pressor support with levophed and maintained on fentanyl and versed via continuous infusion. Temporary dialysis cath placed to maintain fluid balance in the setting of oliguric JACQUELINE with ATN. * PMH significant for T2DM, tobacco use, COPD, ASA and obesity 12/19: * Received 255 units of insulin yesterday. * HD performed yesterday * BSGs have been very well controlled over the past 24 hours. * Novasource was reduced to 30ml/hr yesterday * Solumedrol 40mg daily today, this will decrease to 20mg daily tomorrow, and novolog scale will likely need to be loosened accordingly. * Given improved BSGs and hypokalemia today, IV insulin order has been placed on hold * Continue lantus scale 12/17: * Patient received >200 units yesterday. Overnight, patients BSG uptrended significantly and lantus scale, novolog CF and IV inuslin bolus were adjusted. * Change in TF formula may have contributed to this spike in BSGs * 0800 and 1200 BSGs downtrended nicely (201-> 138) with increased doses of novolog and lantus. Will await 1600 BSG. If continues to downtrend, suggest loosening novolog scale somewhat. I am hesitant to do this now given how difficult BSGs have been to control. It was communicated to the nurse to touch base with the pharmacy if they 1600 BSG decreased further, as novolog scale would likely be altered. * Patient will no receive HD today, and further HD remains unclear due to access issues * Continues on methylprednisolone 40 once daily 12/16 * Patient received 179 units of insulin yesterday with better control- BSGs ranging from 153-261 mg/dL (trended up with tf advance) * Will continue current lantus parameters as have seen an improvement in BSG control and insulin use trending down, however, changes in TF today * TF at goal overnight, carb ratio tightened to 2 as BSGs increased with advancement, and improved with this change, BSG 183 mg/dL at morning check. TF changing to [employer] renal 2.0 which will provide a higher carb amount, will continue to monitor * Continues on IV solu-medrol 40 mg once daily. Patient will receive HD today. 12/14 * Patient received 238 units of insulin yesterday * BSGs ranged from 178-270 mg/dL; fasting BSG trending down to 219 this AM. * Patient remains on vent, Versed gtt restarted secondary to ventilator asynchrony. Levophed running at 0.01 mcg/kg/min. * Trophic tube feeds continue. IV steroids decreased to Solu-Medrol 40 mg once daily. Patient will receive HD today. * Have been using IV boluses of insulin instead of an insulin infusion per provider request due to demand for PPE when on q1h accuchecks. Hold parameters in place to ensure K does not fall to < 4. * Will decrease in IV steroids and Levophed dose, expect BSGs to improve today, no changes at this time. 12/13 * Gideon received 277 units of insulin yesterday (IV pushes + SQ) * BSGs were in the 300s yesterday but are finally starting to improve today. Down to 228 this morning. * Patient remains on vent, not responding to tactile stimuli so Versed drip placed on hold. Levophed at 0.02 mcg/kg/min. * Trophic tube feeds continue. IV steroids remain at Solu-medrol 40 mg q12h. Patient will receive HD today. * Have been using IV boluses of insulin instead of an insulin infusion per provider request due to demand for PPE when on q1h accuchecks. Hold parameters in place to ensure K does not fall to < 4. 12/12: * Patient received 179 units of insulin yesterday, BSGs have ranged in the upper 200s, low 300s- seem to be holding at this level * Trophic TFs continue, steroids were decreased from methylpred 60 mg q12 to 40 mg q12 * Provider would like to continue with IV boluses every 4 hours in addition to SQ basal/bolus rather than initiating insulin drip, therefore will continue to increase lantus, tighten correction factor, ? absorption issues with levophed * Patient will not receive HD today, will need to monitor K with IV insulin administration, continue to monitor, reviewed dextrose containing medications, switched doxycycline to NS diluent, new norepinephrine bag just hung but can consider switching to NS (concentration up to 16 mcg/mL) with next bag change 12/11: * Patient received 137 units of insulin yesterday (80 basal, 57 bolus). BSGs continue to uptrend, despite aggressive increases in insulin * Trophic TFs continue and IV steroids were started yesterday (likely to continue with an eventual taper) * Discussed with the provider and nurse and ideally an insulin infusion would be initiated, but given significant logistical considerations, we will continue SQ basal/bolus and add q4 hour IV regular insulin boluses. Will continue to monitor this and make adjustments as needed. Will utilize a weight based stress of three lantus dose. This may need to be increased further, but will wait to see effects of IV regular insulin boluses. Will further tighten novolog correction factor. 12/10: * Patient received 61 units of insulin yesterday (37 basal, 24 bolus). Insulin requirements increasing, BSGs trending upward into the 200s. * Patient also starting methylpred 60 mg q12H, will attempt to avoid insulin infusion but if BSGs further increased may need to start * Patients receiving steroids equivalent to prednisone 40 mg daily and above typically require an additional 0.4 units/kg of insulin in addition to basal needed, however, will be conservative and increase total possible lantus dose to ~.25 units/kg above home regimen. * AM BSG 207, still on trophic tube feeds. Tighten correction factor for now. 12/08: * Patient received a total of 29 units of insulin yesterday (25 basal, 4 bolus). Still requiring much less than home needs indicate. Will monitor. * BSGs well controlled today * Patient was started on trophic tube feeds. I don't anticipate this effecting BSGs too much, until rate/diet is advanced, will defer carb coverage for now. 12/07 * Since the time of admission, patient has been given two doses of Lantus (20 units on 4/2 PM and 15 units on 4/4 PM). Fasting BSG of 184 mg/dL this am. I would have expected this to be higher based on home dose of Lantus. * will schedule Lantus q12 based on BSG scale * Add Novolog coverage q4h - will utilize stress of 3 dosing due to above stressors and critical illness PLAN FOR INPATIENT GLYCEMIC CONTROL: * Continue to hold outpatient oral diabetes medications * Basal * Lantus BID per the following scale: * 35 units for BSG < 140 mg/dL * 45 units for BSG 140-220 mg/dL * 55 units for BSG 220 or above * Bolus insulin * NovoLog per scale q4h * Goal Range: Low 110 mg/dL - High 140 mg/dL * Correction Factor: 4 mg/dL/unit * Nutritional / Prandial insulin-- carb ratio of 1 unit per 2 grams CHO consumed PLAN FOR DISCHARGE: * pending
--- NOTE | 2019-12-20 13:35 | Hospitalist Progress Note ---
Date of Service December 20, 2019 Assessment & Plan (1) Afib: Went into afib with RVR on 12/16. Required cardioversion when he became hypotensive, but back into it. - Restarted on low-dose Levophed at that time. - Now on metoprolol tartrate 50 mg PO Q8h & amiodarone gtt - Converted to sinus rhythm on 12/19. (2) Acute respiratory failure with hypoxia: B/l pneumonia on chest x-ray. Clinical picture highly concerning for COVID-19, although two nasopharyngeal tests have come back negative for COVID-19 ([facility] on 12/04; [facility] on 12/07). No plans for further testing as this would not change treatment or prognosis at this time. - Intermittent proning per ICU. - Continues on vent. - Discussing with and possibly considering a trach. - Continues with hemodialysis to remove volume and help correct acidosis, treat azotemia -> New central line placed on 12/18. - On Zosyn at present per ICU team. (3) ARDS (adult respiratory distress syndrome): As above, unclear etiology, COVID testing was negative from both [facility] and [facility]. - Started trial of IV steroids on 12/10 - continue to taper per pulmonary/ICU (4) Suspected 2019 novel coronavirus infection: See above in "acute hypoxic resp failure." - [employer] negative x 2 - Flu negative - COVID-19 negative on 12/27 from [facility] and on [facility] COVID test on 12/07. (5) Sepsis: Secondary to pneumonia. - Continue supportive care (6) Acute renal failure (ARF): Secondary to dehydration/sepsis/ATN. - Now on HD - Continue to hold MIKAEL and HCTZ - Appreciate nephrology consultation for hemodialysis management of renal failure (7) Hypertension: - Holding anti-hypertensives (HCTZ, ACEi, amlodipine, etc) for hypotension. (8) Chronic obstructive pulmonary disease: By history, but not on inhalers at home. (9) Current smoker: 50+ years of smoking per patient. (10) Gastroesophageal reflux disease: Pepcid once daily which is renal dosing (11) Gout: No recent issues. Not on prophylaxis. (12) Diabetes mellitus type II, uncontrolled: Hyperglycemic ICU protocol, hyperglycemia worsened with starting IV steroids-pharmacy has intensified the insulin regimen and steroids are being tapered down-glucose is now improved. - Defer to pharmacy - Now on basal-bolus on 12/18 -> Sugars still variable, up to 160 this morning. (13) Ileus: He has not had a bowel movement throughout his hospital stay. He has been given lactulose on several occasions, continues on docusate 100 mg twice daily per OG tube as well as sennosides 8.8 mg once daily. - Continue bowel regimen per ICU team. (14) DVT prophylaxis: Heparin 5,000 units SQ Q8h Admission and Anticipated Discharge Date Admission Date: December 05, 2019 Subjective Obtunded and intubated. Due to patient's positive coronavirus status, ICU-status, and hospital policy, I did not enter the patient's room. I did assess the patient's mechanical ventilation settings, his/her respiratory status, and discussed his/her care with the RN and ICU attending. Review of Systems Review of Systems: Unobtainable due to endotracheal tube and Unobtainable due to reduced consciousness Physical Exam Constitutional: WD/WN, vitals as above + lethargic ENMT: external ear and nose normal, oropharynx normal (Intubated) Respiratory: + respiratory distress and + labored breathing Cardiovascular: Rate/Rhythm: + tachycardic and + irregularly irregular Gastrointestinal (Abdomen): Inspection/Auscultation: abdomen normal to inspection; abdomen not distended Neurologic: + obtunded; + not awake Psychiatric: Orientation: + not alert Results & Data Results & Data ([facility]) Vital Signs (Past 12 Hours) Vital Signs Temp Pulse Pulse Resp BP Pulse Ox 12/20/19 13:00 88 132/73 12/20/19 12:40 83 131/73 12/20/19 12:20 81 130/73 12/20/19 12:00 79 136/78 12/20/19 11:50 78 126/75 12/20/19 11:45 37.4 C 81 12/20/19 11:15 81 26 H 95 12/20/19 10:35 37.4 C 80 137/74 95 12/20/19 09:35 79 134/74 95 12/20/19 08:35 37.1 C 77 127/83 93 12/20/19 08:00 81 12/20/19 07:35 75 123/66 94 12/20/19 07:28 77 26 H 95 12/20/19 06:00 121 H 92 12/20/19 05:35 121 H 136/86 93 12/20/19 05:00 119 H 90 12/20/19 04:35 109 H 133/74 93 12/20/19 04:00 36.7 C 108 H 92 12/20/19 03:41 104 H 29 H 91 12/20/19 03:35 115 H 129/63 90 12/20/19 03:00 119 H 91 12/20/19 02:30 109 H 121/72 91 12/20/19 02:00 114 H 92 PG Care Time/CCT Total # of Minutes Spent Total Time Spent with Patient: Total time spent is greater than 50% in coordination of care (as documented) at patient's floor/unit and/or counseling patient: Coding Level of Care Code 57923 Subseq Hosp Care Lvl 3 Diagnoses Afib I48.91 Acute respiratory failure with hypoxia J96.01 ARDS (adult respiratory distress syndrome) J80 Suspected 2019 novel coronavirus infection R68.89 Sepsis A41.9 Acute renal failure (ARF) N17.9 Acute renal failure type: unspecified Hypertension I10 Chronic obstructive pulmonary disease J44.9 Current smoker F17.200 Gastroesophageal reflux disease K21.9 Gout M10.9 Diabetes mellitus type II, uncontrolled E11.65 Ileus K56.7 DVT prophylaxis Z29.9 (1) Acute renal failure (ARF) Acute renal failure type: unspecified Qualified Code(s): N17.9 - Acute kidney failure, unspecified
[2019-12-20] MEDS: ARTIFICIAL TEARS OP OINT 3.5 GM TUBE OP PRN (14:05)
[2019-12-20] MEDS: HEPARIN SOD (PORCINE) 1000 UNIT/ML 10 ML VIAL IV SCH ×2 (14:53→14:54)
[2019-12-21] MEDS: INSULIN ASPART 100 UNITS/ML 3 ML PEN SQ SCH ×7 (00:25→23:40)
[2019-12-21] MEDS: HEPARIN SOD 5,000 UNIT/0.5 ML VIAL SQ SCH ×3 (03:39→19:47)
[2019-12-21 04:48] LABS: Mean Corpuscular Hgb Conc 32.9 g/dL (32-36); Mean Platelet Volume 9.9 fL (7.4-10.4); Nucleated RBC # (auto) 0.02 K/uL (0-0); Nucleated RBC % (auto) 0.1 %; Platelet Count 327 K/uL (130-400)
[2019-12-21 04:58] LABS: iSTAT Allen Test Pass; iSTAT Art Bld Gas pCO2 Correct 33 mmHg (35-46); iSTAT Art Bld Gas pH Corrected 7.492 (7.35-7.45); iSTAT Arterial Blood Gas HCO3 25 meg/L (19-24); iSTAT Arterial Blood Gas pCO2 33 mmHg (35-46); iSTAT Arterial Blood Gas pH 7.49 (7.35-7.45); iSTAT Arterial Blood Gas pO2 67 mmHg (80-95); iSTAT Arterial Blood Gas pO2 C 67; iSTAT Carbon Dioxide 26 mmol/L (24-31); iSTAT Hematocrit 38 % (42-52); iSTAT Hemoglobin 12.9 g/dl (14.0-18.0); iSTAT Potassium 3.2 mmol/L (3.3-5.0); iSTAT Site L Radial; iSTAT Sodium 135 mmol/L (135-144)
[2019-12-21 05:08] LABS: BUN Creatinine Ratio 30.6 (10-20); Calcium 7.7 mg/dl (8.5-10.1); Est GFR (African American) 28.5; Est GFR (Non-African American) 24.6; Magnesium 2.3 mg/dl (1.8-2.4); Potassium 3.2 mmol/L (3.5-5.1)
[2019-12-21 05:19] LABS: Phosphorus 5.9 mg/dl (2.5-4.9)
[2019-12-21 05:24] LABS: ALC (manual) 1.26 K/uL (1.2-3.4); ANC (manual) 16.13 K/uL (1.4-6.5); Hematocrit (blood only) 31.6 % (42-52); Hemoglobin 10.4 g/dL (14.0-18.0); Lymphocytes # (manual) 1.26 K/uL (1.2-3.4); Mean Corpuscular Hemoglobin 29.8 pg (25-34); Mean Corpuscular Volume 90.5 fL (80-100); Monocytes # (manual) 0.63 K/uL (0.11-0.59); Monocytes % (manual) 3.5 %; Neutrophils # (manual) 16.13 K/uL (1.4-6.5); Neutrophils % (manual) 89.5 %; RDW Coefficient of Variation 15.2 % (11.5-14.5); RDW Standard Deviation 48.1 fL (36.4-46.3); Red Blood Count 3.49 M/uL (4.7-6.1); White Blood Count 18.02 K/uL (4.8-10.8)
[2019-12-21] MEDS: propofoL 1,000 MG/100 ML VIAL IV SCH ×2 (05:36→22:31)
[2019-12-21] MEDS: METOPROLOL TARTRATE 50 MG TAB PO SCH ×3 (05:36→19:48)
[2019-12-21] MEDS ORDERED: HEPARIN SOD (PORCINE) 1000 UNIT/ML 10 ML VIAL IV ONE (07:00)
[2019-12-21] MEDS ORDERED: SODIUM CHLORIDE 0.9% 1000ML 1,000 ML IV PRN (07:00)
[2019-12-21] MEDS: PROSOURCE NO CARB 30 ML/PKT OG SCH ×4 (08:10→19:47)
[2019-12-21] MEDS: FAMOTIDINE 20 MG in SYRINGE 3 ML IV SCH (08:10)
[2019-12-21] MEDS: INSULIN GLARGINE SOLOSTAR 100 UNITS/ML 3 ML PEN SC SCH ×2 (08:11→19:50)
[2019-12-21] MEDS: methylPREDNISolone 20 MG in SYRINGE 0 ML IV SCH (08:11)
[2019-12-21] MEDS: MULTI VIT W/MINERALS LIQUID 15 ML UDP PO SCH (08:11)
[2019-12-21] MEDS: DOCUSATE SODIUM SYRUP 100 MG/10 ML UDC NG SCH (08:11)
[2019-12-21] MEDS: FUROSEMIDE 40 MG in SYRINGE 0 ML IV SCH ×2 (08:12→16:21)
--- NOTE | 2019-12-21 09:27 | Pharmacy Report ---
Pharmacy Glycemic Short Note 2 - Date of Service December 21, 2019 - Glycemic Short BSG Results (Last 24 hours): 12/20/19 12/20/19 12/20/19 11:54 16:14 19:53 Glucose POC Glucose 139 H 126 H 155 H 12/21/19 12/21/19 12/21/19 00:07 03:50 04:12 Glucose 147 H POC Glucose 163 H 146 H 12/21/19 07:37 Glucose POC Glucose 119 H OUTPATIENT ANTIDIABETIC REGIMEN: Per med rec: * Lantus 54 units SQ qPM * Glimepiride, linagliptin, and metformin * A1c = 9.4% 12/06/19 ASSESSMENT: * 64 yo male admitted to the ICU for ARDS, COVID-19 testing NEGATIVE, although still suspicion for COVID-19 infection * Pt is requiring pressor support with levophed and maintained on fentanyl and versed via continuous infusion. Temporary dialysis cath placed to maintain fluid balance in the setting of oliguric JACQUELINE with ATN. * PMH significant for T2DM, tobacco use, COPD, ASA and obesity 12/20: * Received 160 units of insulin yesterday. * 80 units of basal * 80 units of bolus * BSGs have been very well controlled over the past 24 hours. But, will empirically decrease insulin regimen since sterids tapered from Solumedrol 40mg IV daily to 20mg IV daily. * Continue lantus scale but decrease parameters * Loosen CF/CR since steroids have their most profound effect on post- prandial hyperglycemia 12/19: * Received 255 units of insulin yesterday. * HD performed yesterday * BSGs have been very well controlled over the past 24 hours. * Novasource was reduced to 30ml/hr yesterday * Solumedrol 40mg daily today, this will decrease to 20mg daily tomorrow, and novolog scale will likely need to be loosened accordingly. * Given improved BSGs and hypokalemia today, IV insulin order has been placed on hold * Continue lantus scale 12/17: * Patient received >200 units yesterday. Overnight, patients BSG uptrended si gnificantly and lantus scale, novolog CF and IV inuslin bolus were adjusted. * Change in TF formula may have contributed to this spike in BSGs * 0800 and 1200 BSGs downtrended nicely (201-> 138) with increased doses of novolog and lantus. Will await 1600 BSG. If continues to downtrend, suggest loosening novolog scale somewhat. I am hesitant to do this now given how difficult BSGs have been to control. It was communicated to the nurse to touch base with the pharmacy if they 1600 BSG decreased further, as novolog scale would likely be altered. * Patient will no receive HD today, and further HD remains unclear due to access issues * Continues on methylprednisolone 40 once daily 12/16 * Patient received 179 units of insulin yesterday with better control- BSGs ranging from 153-261 mg/dL (trended up with tf advance) * Will continue current lantus parameters as have seen an improvement in BSG control and insulin use trending down, however, changes in TF today * TF at goal overnight, carb ratio tightened to 2 as BSGs increased with advancement, and improved with this change, BSG 183 mg/dL at morning check. TF changing to novosource renal 2.0 which will provide a higher carb amount, will continue to monitor * Continues on IV solu-medrol 40 mg once daily. Patient will receive HD today. 12/14 * Patient received 238 units of insulin yesterday * BSGs ranged from 178-270 mg/dL; fasting BSG trending down to 219 this AM. * Patient remains on vent, Versed gtt restarted secondary to ventilator asynchrony. Levophed running at 0.01 mcg/kg/min. * Trophic tube feeds continue. IV steroids decreased to Solu-Medrol 40 mg once daily. Patient will receive HD today. * Have been using IV boluses of insulin instead of an insulin infusion per provider request due to demand for PPE when on q1h accuchecks. Hold p arameters in place to ensure K does not fall to < 4. * Will decrease in IV steroids and Levophed dose, expect BSGs to improve today, no changes at this time. 12/13 * Gideon received 277 units of insulin yesterday (IV pushes + SQ) * BSGs were in the 300s yesterday but are finally starting to improve today. Down to 228 this morning. * Patient remains on vent, not responding to tactile stimuli so Versed drip placed on hold. Levophed at 0.02 mcg/kg/min. * Trophic tube feeds continue. IV steroids remain at Solu-medrol 40 mg q12h. Patient will receive HD today. * Have been using IV boluses of insulin instead of an insulin infusion per provider request due to demand for PPE when on q1h accuchecks. Hold parameters in place to ensure K does not fall to < 4. 12/12: * Patient received 179 units of insulin yesterday, BSGs have ranged in the upper 200s, low 300s- seem to be holding at this level * Trophic TFs continue, steroids were decreased from methylpred 60 mg q12 to 40 mg q12 * Provider would like to continue with IV boluses every 4 hours in addition to SQ basal/bolus rather than initiating insulin drip, therefore will continue to increase lantus, tighten correction factor, ? absorption issues with levophed * Patient will not receive HD today, will need to monitor K with IV insulin administration, continue to monitor, reviewed dextrose containing medications, switched doxycycline to NS diluent, new norepinephrine bag just hung but can consider switching to NS (concentration up to 16 mcg/mL) with next bag change 12/11: * Patient received 137 units of insulin yesterday (80 basal, 57 bolus). BSGs continue to uptrend, despite aggressive increases in insulin * Trophic TFs continue and IV steroids were started yesterday (likely to continue with an eventual taper) * Discussed with the provider and nurse and ideally an insulin infusion would be initiated, but given significant logistical considerations, we will continue SQ basal/bolus and add q4 hour IV regular insulin boluses. Will continue to monitor this and make adjustments as needed. Will utilize a weight based stress of three lantus dose. This may need to be increased further, but will wait to see effects of IV regular insulin boluses. Will further tighten novolog correction factor. 12/10: * Patient received 61 units of insulin yesterday (37 basal, 24 bolus). Insulin requirements increasing, BSGs trending upward into the 200s. * Patient also starting methylpred 60 mg q12H, will attempt to avoid insulin infusion but if BSGs further increased may need to start * Patients receiving steroids equivalent to prednisone 40 mg daily and above typically require an additional 0.4 units/kg of insulin in addition to basal needed, however, will be conservative and increase total possible lantus dose to ~.25 units/kg above home regimen. * AM BSG 207, still on trophic tube feeds. Tighten correction factor for now. 12/08: * Patient received a total of 29 units of insulin yesterday (25 basal, 4 bolus). Still requiring much less than home needs indicate. Will monitor. * BSGs well controlled today * Patient was started on trophic tube feeds. I don't anticipate this effecting BSGs too much, until rate/diet is advanced, will defer carb coverage for now. 12/07 * Since the time of admission, patient has been given two doses of Lantus (20 units on 4/2 PM and 15 units on 4/4 PM). Fasting BSG of 184 mg/dL this am. I would have expected this to be higher based on home dose of Lantus. * will schedule Lantus q12 based on BSG scale * Add Novolog coverage q4h - will utilize stress of 3 dosing due to above stressors and critical illness PLAN FOR INPATIENT GLYCEMIC CONTROL: * Continue to hold outpatient oral diabetes medications * Basal: decrease * Lantus BID per the following scale: * 30 units for BSG < 140 mg/dL * 40 units for BSG 140-220 mg/dL * 50 units for BSG 220 or above * Bolus insulin: decrease * NovoLog per scale q4h * Goal Range: Low 110 mg/dL - High 140 mg/dL * Correction Factor: 8 mg/dL/unit * Nutritional / Prandial insulin-- carb ratio of 1 unit per 3 grams CHO consumed PLAN FOR DISCHARGE: * pending
[2019-12-21] MEDS: HEPARIN SOD (PORCINE) 1000 UNIT/ML 10 ML VIAL IV SCH (09:42)
--- NOTE | 2019-12-21 09:49 | Critical Care Progress Note ---
Date of Service December 21, 2019 Assessment & Plan (1) ARDS (adult respiratory distress syndrome): Impression: 64-year-old male with obesity, poorly controlled diabetes, COPD and ongoing tobacco abuse admitted with hypoxemic respiratory failure. He progressed to multiorgan system dysfunction requiring initiation of renal replacement therapy and remains persistently ventilator dependent and course was complicated by atrial fibrillation with rapid ventricular response. ICU day #15 24-hour events: Tolerated hemodialysis yesterday. Has remained in normal sinus rhythm. Blood pressures creeping up. Making some urine. Tube feedings being tolerated. Tolerated pressure support ventilation for a large portion of the day yesterday but then returned to CMV overnight for rest. Did require a brief infusion of propofol to maintain ventilator synchrony and eliminate cough. Sedation remains off. His eyes are open and he is having some roving eye m ovements but not following commands Recommendations: 1. Neuro: Likely toxic metabolic encephalopathy complicated by delayed clearance of high-dose sedatives and narcotics in the setting of renal failure with dialysis. He is now about 48 hours off all benzodiazepines and narcotics but may have delayed clearance of active metabolites. We will continue to hold narcotics and benzodiazepines and observe. The patient is at risk for critical illness polyneuropathy given severity of illness, high-dose steroids, and neuromuscular blockers. Defer EMG testing for now as it will not likely private branch exchange installer. CPK previously had been normal so unlikely he has critical illness myopathy. Decreasing steroids as tolerated. If he fails to improve over the weekend, may consider MRI testing and EMG evaluation. 2. Cardiovascular: Atrial fibrillation with rapid ventricular response now resolved with amiodarone. Transition to p.o. Continue metoprolol. Given his elevated blood pressure, will add low-dose hydralazine. Echocardiogram during this admission showed no significant regional wall abnormalities and a preserved ejection fraction without significant valvular dysfunction. Additional diuretics per nephrology today. 3. Renal: Acute renal failure: Suspect ATN related to sepsis, pressor use in the setting of likely underlying kidney disease due to poorly controlled diabetes. Dialyzed yesterday with improvement in BUN and creatinine. Per discussion with nephrology yesterday, plan to observe over the weekend. Will defer potassium replacement and electrolytes to nephrology. 4. Pulmonary: Acute hypoxemic respiratory failure: Unclear precipitant. COVID testing was negative on presentation. Treating for ventilator associated pneumonia given his fever and white blood cell count as well as elevated procalcitonin. Culture data shows normal monie. Given clinical improvement, will continue Zosyn with anticipated 7-day course. He is currently day 5 out of 7. Transition to pressure support ventilation this morning as the patient is pulling adequate tidal volumes. His blood gas showed a mild respiratory alkalosis which should improve with decreasing respiratory rate. If he demonstrates respiratory fatigue, tachypnea, or oxygen desaturation will transition back to CMV. Extubation precluded currently due to mental status. Continue taper of steroids for late-phase ARDS 5. ID: Probable ventilator associated event, day #57 Zosyn. Follow blood cultures. 6. GI: Now with excessive loose stools. Tolerating tube feeds at goal. 7. Heme-onc: Mild anemia today but stable. No indication for transfusion. Continue to trend white blood cell count 8. Endo: Continue glycemic control. This is been hampered by concomitant steroids as well as tube feeds. He is on high-dose Lantus. Per pharmacy protocol 9. Prophylaxis: The patient is maintained on H2 kristian as well as subcu heparin. Continue for now. 10. Skin: Decubitus ulcer. Wound consult management in place. Patient is using a low pressure air mattress. We will continue to stage wound as eschar resolves. Disposition: I updated the patient's , Pretty, today via phone conversation. She was updated on the patient's clinical course and care plan for today. Pat ient has shown some improvement over the last 24 to 48 hours. Continue current level of care. Patient remains critically ill with uncertain overall long-term prognosis. (2) JACQUELINE (acute kidney injury): (3) Sepsis: (4) Metabolic encephalopathy: (5) Acute respiratory failure with hypoxia: (6) Diabetes mellitus type II, uncontrolled: Admission and Anticipated Discharge Date Admission Date: December 05, 2019 Review of Systems Review of Systems: Unobtainable due to endotracheal tube Physical Exam Constitutional: + mechanically ventilated and + overweight Eyes: PERRL Neck: trachea midline, no thyromegaly Cardiovascular: Rate/Rhythm: regular rate and + tachycardic Heart Sounds: normal S1 and normal S2; no murmur Extremities: + edema Gastrointestinal (Abdomen): normal bowel sounds, soft, nontender, no hepatosplenomegaly Musculoskeletal: no cyanosis or clubbing, extremities motor strength 5/5 Skin: no rashes, warm and dry Results & Data Results & Data ([facility]) Vital Signs (Past 12 Hours) Vital Signs Temp Pulse Resp BP Pulse Ox 12/21/19 08:58 74 155/83 H 90 12/21/19 08:00 71 90 12/21/19 07:58 37 C 71 139/86 90 12/21/19 07:00 70 93 12/21/19 06:58 70 134/83 93 12/21/19 05:58 78 133/69 91 12/21/19 04:58 37.1 C 78 136/67 94 12/21/19 04:27 78 24 94 12/21/19 03:57 76 138/71 92 12/21/19 02:57 73 115/68 92 12/21/19 01:57 73 128/61 92 12/21/19 00:57 71 127/71 95 12/20/19 23:57 37.0 C 70 112/66 100 12/20/19 23:48 70 27 H 96 12/20/19 22:57 74 118/67 95 12/20/19 21:57 80 126/68 95 Laboratory Results 12/21/19 04:12 12/21/19 04:12 12/05/19 12/06/19 12/07/19 10:08 04:07 04:17 ABG pH 7.49 H 7.41 7.31 L ABG pCO2 29 L 39 47 H ABG pO2 67 L 101 H 55 L ABG HCO3 22 24 24 ABG O2 Saturation 94.1 97.8 H 83.8 L ABG Base Excess -0.6 -0.2 -2.8 12/08/19 12/13/19 12/14/19 04:12 04:18 04:16 ABG pH 7.27 L 7.31 L 7.33 L ABG pCO2 49 H 40 30 L ABG pO2 70 L 72 L 80 ABG HCO3 22 20 16 L ABG O2 Saturation 91.9 91.5 94.2 ABG Base Excess -5.2 -6.2 -9.3 L Diagnostic Findings No new films Coding Level of Care Code Critical Care 1st 30-74 mins Diagnoses ARDS (adult respiratory distress syndrome) J80 JACQUELINE (acute kidney injury) N17.9 Sepsis A41.9 Metabolic encephalopathy G93.41 Acute respiratory failure with hypoxia J96.01 Diabetes mellitus type II, uncontrolled E11.65 Time Spent (min) 48 Comment 48 minutes critical care time managing life-threatening illness
--- NOTE | 2019-12-21 10:29 | Hospitalist Progress Note ---
Date of Service December 21, 2019 Assessment & Plan (1) Acute respiratory failure with hypoxia: B/l pneumonia on chest x-ray. Clinical picture highly concerning for COVID-19, although two nasopharyngeal tests have come back negative for COVID-19 ([facility] on 12/04; [facility] on 12/07). No plans for further testing as this would not change treatment or prognosis at this time. - Continues with hemodialysis to remove volume and help correct acidosis, treat azotemia -> New central line placed on 12/18. - On Zosyn at present per ICU team. - Continues on vent -> Now on CPAP with 30% FiO2. (2) Afib: Went into afib with RVR on 12/16. Required cardioversion when he became hypotensive, but back into it. - Converted to sinus rhythm on 12/19. No further episodes as of 12/20. - Now on metoprolol tartrate 50 mg NG Q8h & amiodarone 200 mg NG BID (3) ARDS (adult respiratory distress syndrome): As above, unclear etiology, COVID testing was negative from both [facility] and [facility]. - Started trial of IV steroids on 12/10 - continue to taper per pulmonary/ICU (4) Suspected 2019 novel coronavirus infection: See above in "acute hypoxic resp failure." - Biofire negative x 2 - Flu negative - COVID-19 negative on 12/27 from [facility] and on [facility] COVID test on 12/07. (5) Sepsis: Secondary to pneumonia. - Continue supportive care (6) Acute renal failure (ARF): Secondary to dehydration/sepsis/ATN. - Now on HD - Continue to hold MIKAEL and HCTZ - Appreciate nephrology consultation for hemodialysis management of renal failure -> Appears plan is to pause HD over the weekend. (7) Hypertension: Was hypotensive on 12/19 with afib with RVR, but now on 12/20, his BP is up. - On beta-kristian as above for rate-control and now on hydralazine 10 mg NG QID per ICU team. (8) Chronic obstructive pulmonary disease: By history, but not on inhalers at home. (9) Current smoker: 50+ years of smoking per patient. (10) Gastroesophageal reflux disease: Pepcid IV daily (11) Gout: No recent issues. Not on prophylaxis. (12) Diabetes mellitus type II, uncontrolled: Hyperglycemic ICU protocol, hyperglycemia worsened with starting IV steroids-pharmacy has intensified the insulin regimen and steroids are being tapered down-glucose is now improved. - Defer to pharmacy - Now on basal-bolus on 12/18 -> Sugars doing better. Now 120-160. Appropriate for ICU-level patient. (13) DVT prophylaxis: Heparin 5,000 units SQ Q8h Admission and Anticipated Discharge Date Admission Date: December 05, 2019 Subjective Intubated and obtunded. Some minimal corneal reflexes per the RN, but does not follow commands or move arms. Due to patient's positive coronavirus status, ICU-status, and hospital policy, I did not enter the patient's room. I did assess the patient's mechanical ventilation settings, his respiratory status, and discussed his care with the RN and ICU attending. Physical Exam Constitutional: WD/WN, vitals as above + lethargic ENMT: external ear and nose normal, oropharynx normal (Intubated) Respiratory: + labored breathing and + tachypneic Cardiovascular: Rate/Rhythm: regular rate and regular rhythm Gastrointestinal (Abdomen): Inspection/Auscultation: abdomen normal to inspection; abdomen not distended Neurologic: + obtunded; + not awake Psychiatric: Orientation: + not alert Results & Data Results & Data ([facility]) Vital Signs (Past 12 Hours) Vital Signs Temp Pulse Resp BP Pulse Ox 12/21/19 08:58 74 155/83 H 90 12/21/19 08:00 71 90 12/21/19 07:58 37 C 71 139/86 90 12/21/19 07:00 70 93 12/21/19 06:58 70 134/83 93 12/21/19 05:58 78 133/69 91 12/21/19 04:58 37.1 C 78 136/67 94 12/21/19 04:27 78 24 94 12/21/19 03:57 76 138/71 92 12/21/19 02:57 73 115/68 92 12/21/19 01:57 73 128/61 92 12/21/19 00:57 71 127/71 95 12/20/19 23:57 37.0 C 70 112/66 100 12/20/19 23:48 70 27 H 96 12/20/19 22:57 74 118/67 95 PG Care Time/CCT Total # of Minutes Spent Total Time Spent with Patient: Total time spent is greater than 50% in coordination of care (as documented) at patient's floor/unit and/or counseling patient: Coding Level of Care Code 76278 Subseq Hosp Care Lvl 3 Diagnoses Acute respiratory failure with hypoxia J96.01 Afib I48.91 ARDS (adult respiratory distress syndrome) J80 Suspected 2019 novel coronavirus infection R68.89 Sepsis A41.9 Acute renal failure (ARF) N17.9 Acute renal failure type: unspecified Hypertension I10 Chronic obstructive pulmonary disease J44.9 Current smoker F17.200 Gastroesophageal reflux disease K21.9 Gout M10.9 Diabetes mellitus type II, uncontrolled E11.65 DVT prophylaxis Z29.9 (1) Acute renal failure (ARF) Acute renal failure type: unspecified Qualified Code(s): N17.9 - Acute kidney failure, unspecified
[2019-12-21] MEDS: HydrALAZINE 10 MG TAB PO SCH ×3 (11:08→19:47)
[2019-12-21] MEDS ORDERED: ALTEPLASE, RECOMBINANT 1 MG/ML 2ML VIAL INSTIL ONE (11:15)
[2019-12-21] MEDS: PIPERACILLIN/TAZOBACTAM 4.5 GM in DEXTROSE 5% 100 ML IV SCH ×3 (12:15→23:32)
--- NOTE | 2019-12-21 12:28 | Nephrology Progress Note ---
Date of Service December 21, 2019 Assessment & Plan (1) JACQUELINE (acute kidney injury): 64-year-old gentlemen admitted with acute respiratory failure, ARDS, remained intubated since 12/05/19. Flu, bio fire and COVID-19 x 2 were negative although clinically high suspicion for COVID-19 and remain in isolation. Developed AK I and has been on dialysis via temporary dialysis catheter, over last 2 days there has been some sign of renal recovery, started to make urine, made 500 mL over last 24 hour. Had dialysis yesterday. Today blood pressure electrolyte acceptable. Has been on Lasix 40 milligram IV twice a day. CPAP trial was done yesterday however patient remains intubated today as has been minimally responsive off sedation. --continue to monitor over the weekend with diuretics to improve urine output. --if urine output continued improved and renal function and electrolytes stay relatively stable, hopefully will be able to monitor without dialysis. --monitor potassium, if potassium less than 3 will replace will follow (2) ARDS (adult respiratory distress syndrome): (3) Hypertension: (4) Diabetes mellitus type II, uncontrolled: (5) Hypokalemia: Admission and Anticipated Discharge Date Admission Date: December 05, 2019 Subjective Mr. Hinkle remains intubated today. He is off sedation but still minimally responsive. Blood pressure improved. Potassium slightly low at 3.2. Had dialysis yesterday, started to make urine, overnight had 500 mL urine output. Review of Systems Review of Systems: Unobtainable due to mental health condition Physical Exam Physical Exam: Exam was not performed as patient remains in isolation, labs and vital signs are reviewed in EMR and discussed with patient's primary team including the nursing staff. Results & Data ([facility]) Vital Signs (Past 12 Hours) Vital Signs Temp Pulse Resp BP Pulse Ox 12/21/19 08:58 74 155/83 H 90 12/21/19 08:00 71 90 12/21/19 07:58 37 C 71 139/86 90 12/21/19 07:00 70 93 12/21/19 06:58 70 134/83 93 12/21/19 05:58 78 133/69 91 12/21/19 04:58 37.1 C 78 136/67 94 12/21/19 04:27 78 24 94 12/21/19 03:57 76 138/71 92 12/21/19 02:57 73 115/68 92 12/21/19 01:57 73 128/61 92 12/21/19 00:57 71 127/71 95 PG Care Time/CCT Total # of Minutes Spent Total Time Spent with Patient: Total time spent is greater than 50% in coordination of care (as documented) at patient's floor/unit and/or counseling patient: Coding Level of Care Code 89611 Subseq Hosp Care Lvl 3 Diagnoses JACQUELINE (acute kidney injury) N17.9 ARDS (adult respiratory distress syndrome) J80 Hypertension I10 Diabetes mellitus type II, uncontrolled E11.65 Hypokalemia E87.6
[2019-12-21] MEDS: NOVASOURCE RENAL 2.0 CAL 1000ML BAG OG SCH (15:00)
[2019-12-21] MEDS: AMIODARONE 200 MG TAB PO SCH (19:56)
[2019-12-22] MEDS: HEPARIN SOD 5,000 UNIT/0.5 ML VIAL SQ SCH ×3 (03:39→20:27)
[2019-12-22] MEDS: METOPROLOL TARTRATE 50 MG TAB PO SCH ×3 (03:41→20:27)
[2019-12-22] MEDS: INSULIN ASPART 100 UNITS/ML 3 ML PEN SQ SCH ×6 (03:51→23:52)
[2019-12-22 04:07] LABS: iSTAT Allen Test Pass; iSTAT Arterial Blood Gas HCO3 24 meg/L (19-24); iSTAT Arterial Blood Gas pCO2 31 mmHg (35-46); iSTAT Arterial Blood Gas pH 7.51 (7.35-7.45); iSTAT Arterial Blood Gas pO2 61 mmHg (80-95); iSTAT Carbon Dioxide 25 mmol/L (24-31); iSTAT Site L Radial
[2019-12-22 04:36] LABS: Mean Corpuscular Hgb Conc 32.6 g/dL (32-36); Mean Platelet Volume 10.1 fL (7.4-10.4); Platelet Count 367 K/uL (130-400)
[2019-12-22 04:58] LABS: BUN Creatinine Ratio 34.8 (10-20); Calcium 7.9 mg/dl (8.5-10.1); Creatinine Clr Calc Pharmacy 25.1 ml/min; Est GFR (African American) 21.6; Est GFR (Non-African American) 18.6; Magnesium 2.3 mg/dl (1.8-2.4); Potassium 3.2 mmol/L (3.5-5.1)
[2019-12-22 05:14] LABS: ALC (manual) 0.86 K/uL (1.2-3.4); ANC (manual) 16.92 K/uL (1.4-6.5); Eosinophils # (manual) 0.18 K/uL (0-0.5); Eosinophils % (manual) 0.9 %; Hematocrit (blood only) 33.7 % (42-52); Lymphocytes # (manual) 0.86 K/uL (1.2-3.4); Lymphocytes % (manual) 4.3 %; Mean Corpuscular Hemoglobin 29.5 pg (25-34); Mean Corpuscular Volume 90.3 fL (80-100); Metamyelocytes # (manual) 0.52 K/uL (0-0); Metamyelocytes % (manual) 2.6 %; Monocytes # (manual) 1.56 K/uL (0.11-0.59); Monocytes % (manual) 7.8 %; Neutrophils # (manual) 16.92 K/uL (1.4-6.5); Neutrophils % (manual) 84.4 %; Polychromasia 1+; RDW Coefficient of Variation 15.2 % (11.5-14.5); RDW Standard Deviation 48.5 fL (36.4-46.3); Red Blood Count 3.73 M/uL (4.7-6.1); White Blood Count 20.05 K/uL (4.8-10.8)
[2019-12-22 05:15] LABS: Phosphorus 7.7 mg/dl (2.5-4.9)
[2019-12-22] MEDS: PROSOURCE NO CARB 30 ML/PKT OG SCH ×4 (07:42→20:25)
[2019-12-22] MEDS: HydrALAZINE 10 MG TAB PO SCH ×2 (07:42→11:32)
[2019-12-22] MEDS: AMIODARONE 200 MG TAB PO SCH ×2 (07:42→20:31)
[2019-12-22] MEDS: FAMOTIDINE 20 MG in SYRINGE 3 ML IV SCH (07:43)
[2019-12-22] MEDS: MULTI VIT W/MINERALS LIQUID 15 ML UDP PO SCH (07:43)
[2019-12-22] MEDS: methylPREDNISolone 20 MG in SYRINGE 0 ML IV SCH (07:44)
[2019-12-22] MEDS: FUROSEMIDE 40 MG in SYRINGE 0 ML IV SCH (07:44)
[2019-12-22] MEDS: INSULIN GLARGINE SOLOSTAR 100 UNITS/ML 3 ML PEN SC SCH ×2 (07:52→20:29)
--- NOTE | 2019-12-22 09:01 | Pharmacy Report ---
Pharmacy Glycemic Short Note 2 - Date of Service December 22, 2019 - Glycemic Short BSG Results (Last 24 hours): 12/21/19 12/21/19 12/21/19 11:28 16:23 19:40 Glucose POC Glucose 142 H 173 H 153 H 12/21/19 12/22/19 12/22/19 23:36 03:50 04:06 Glucose 117 H POC Glucose 162 H 130 H 12/22/19 07:50 Glucose POC Glucose 90 OUTPATIENT ANTIDIABETIC REGIMEN: Per med rec: * Lantus 54 units SQ qPM * Glimepiride, linagliptin, and metformin * A1c = 9.4% 12/06/19 ASSESSMENT: * 64 yo male admitted to the ICU for ARDS, COVID-19 testing NEGATIVE, although still suspicion for COVID-19 infection * Pt required pressor support with levophed and maintained on fentanyl and versed via continuous infusion (now dc). Temporary dialysis cath placed to maintain fluid balance in the setting of oliguric JACQUELINE with ATN. * PMH significant for T2DM, tobacco use, COPD, ASA and obesity 12/21: * Received 138 units of insulin yesterday. * 75 units of basal * 63 units of bolus * Steroids continue at decreased dose of Solumedrol 20mg IV daily * AM fasting BSG below target range for critically ill patients at 90mg/dl - will decrease basal insulin dosing * Will also loosen CF/CR since steroids have their most profound effect on post- prandial hyperglycemia * Tube feeds continue with Novosource renal at 30ml/hr. PLAN FOR INPATIENT GLYCEMIC CONTROL: * Continue to hold outpatient oral diabetes medications * Basal: decrease * Lantus BID per the following scale: * 25 units for BSG < 140 mg/dL * 35 units for BSG 140-180 mg/dL * 45 units for BSG 181 or above * Bolus insulin: decrease * NovoLog per scale q4h * Goal Range: Low 110 mg/dL - High 140 mg/dL * Correction Factor: 10 mg/dL/unit * Nutritional / Prandial insulin-- carb ratio of 1 unit per 4 grams CHO consumed PLAN FOR DISCHARGE: * pending
[2019-12-22] MEDS ORDERED: POTASSIUM CHLORIDE PWD 20 MEQ PACK PO STA (09:27)
--- NOTE | 2019-12-22 09:32 | Critical Care Progress Note ---
Date of Service December 22, 2019 Assessment & Plan (1) ARDS (adult respiratory distress syndrome): Impression: 64-year-old male with obesity, poorly controlled diabetes, COPD and ongoing tobacco abuse admitted with hypoxemic respiratory failure. He progressed to multiorgan system dysfunction requiring initiation of renal replacement therapy and remains persistently ventilator dependent and course was complicated by atrial fibrillation with rapid ventricular response. ICU day #15 24-hour events: Remains off all sedation. Has remained in sinus rhythm. Transition from IV to oral amiodarone. Added hydralazine for blood pressure control. He now spontaneously opens his eyes and does open eyes to voice although does not track and exhibits no withdrawal to noxious stimuli. Recommendations: 1. Neuro: Likely toxic metabolic encephalopathy complicated by delayed clearance of high-dose sedatives and narcotics in the setting of renal failure with dialysis. The patient is at risk for critical illness polyneuropathy given severity of illness, high-dose steroids, and neuromuscular blockers. Defer EMG testing for now as it will not likely military exchange wireless manager and unclear if this is available here. CPK previously had been normal so unlikely he has critical illness myopathy. Will discontinue steroids at this point time. Elevated BUN may also be contributing. If he fails to improve over the weekend, may consider MRI testing and EMG evaluation. Could consider repeat rapid coronavirus testing if this would facilitate diagnostic maneuvers. 2. Cardiovascular: Atrial fibrillation with rapid ventricular response now resolved with amiodarone. Transitioned to p.o. would likely continue for 5 to 7 days then reassess. Continue metoprolol and hydralazine. Echocardiogram during this admission showed no significant regional wall abnormalities and a preserved ejection fraction without significant valvular dysfunction. Additional diuretics per nephrology today. 3. Renal: Acute renal failure: Suspect ATN related to sepsis, pressor use in the setting of likely underlying kidney disease due to poorly controlled diabetes. Dialyzed Monday with improvement in BUN and creatinine. Per discussion with nephrology yesterday, plan to observe over the weekend. Will defer potassium replacement and electrolytes to nephrology. Elevated BUN may be contributing to encephalopathy. 4. Pulmonary: Acute hypoxemic respiratory failure: Unclear precipitant. COVID testing was negative on presentation. Treating for ventilator associated pneumonia given his fever and white blood cell count as well as elevated procal citonin. Culture data shows normal monie. Given clinical improvement, will continue Zosyn with anticipated 7-day course. He is currently day 6 out of 7. Transition to pressure support ventilation this morning as the patient is pulling adequate tidal volumes. His blood gas showed a mild respiratory alkalosis which should improve with decreasing respiratory rate. If he demonstrates respiratory fatigue, tachypnea, or oxygen desaturation will transition back to CMV. Extubation precluded currently due to mental status. Steroids were started for late-phase ARDS however given the patient's markedly improved compliance will discontinue them at this point time and follow. Consideration for tracheostomy would be appropriate if the patient is afebrile for greater than or equal to 72 hours and repeat assay for novel coronavirus is negative. 5. ID: Probable ventilator associated event, day #67 Zosyn. Follow blood cultures. 6. GI: Tolerating tube feeds at goal. 7. Heme-onc: Mild anemia today but stable. No indication for transfusion. Continue to trend white blood cell count, slightly increased today of unclear etiology. No fevers which is encouraging 8. Endo: Continue glycemic control. This is been hampered by concomitant steroids as well as tube feeds. He is on high-dose Lantus. Per pharmacy protocol 9. Prophylaxis: The patient is maintained on H2 kristian as well as subcu heparin. Continue for now. 10. Skin: Decubitus ulcer. Wound consult management in place. Patient is using a low pressure air mattress. We will continue to stage wound as eschar resolves. Disposition: I updated the patient's , Pretty, today via phone conversation. She was updated on the patient's clinical course and care plan for today. Patient has shown some improvement over the last 24 to 48 hours. Continue current level of care. Patient remains critically ill with uncertain overall long-term prognosis. Remains full supportive care at this time. (2) JACQUELINE (acute kidney injury): (3) Sepsis: (4) Metabolic encephalopathy: (5) Acute respiratory failure with hypoxia: (6) Diabetes mellitus type II, uncontrolled: Admission and Anticipated Discharge Date Admission Date: December 05, 2019 Subjective Intubated, off all sedation Review of Systems Review of Systems: Unobtainable due to endotracheal tube Physical Exam Constitutional: + mechanically ventilated and + overweight Eyes: PERRL Neck: trachea midline, no thyromegaly Cardiovascular: Rate/Rhythm: regular rate; not tachycardic Heart Sounds: normal S1 and normal S2; no murmur Extremities: + edema Gastrointestinal (Abdomen): normal bowel sounds, soft, nontender, no hepatosplenomegaly Musculoskeletal: no cyanosis or clubbing, extremities motor strength 5/5 Skin: no rashes, warm and dry Results & Data Results & Data ([facility]) Vital Signs (Past 12 Hours) Vital Signs Temp Pulse Resp BP Pulse Ox 12/22/19 07:27 71 12/22/19 07:15 68 24 94 12/22/19 06:19 71 159/86 H 95 12/22/19 04:58 72 172/106 H 94 12/22/19 04:00 82 23 92 12/22/19 03:58 37.1 C 84 160/92 H 92 12/22/19 02:58 84 162/97 H 92 12/22/19 01:58 83 164/85 H 92 12/22/19 00:58 36.9 C 82 165/84 H 91 12/22/19 00:00 75 12/21/19 23:58 76 144/90 H 90 12/21/19 23:24 77 26 H 93 12/21/19 22:08 73 171/90 H 93 Laboratory Results 12/22/19 04:06 12/22/19 04:06 12/05/19 12/06/19 12/07/19 10:08 04:07 04:17 ABG pH 7.49 H 7.41 7.31 L ABG pCO2 29 L 39 47 H ABG pO2 67 L 101 H 55 L ABG HCO3 22 24 24 ABG O2 Saturation 94.1 97.8 H 83.8 L ABG Base Excess -0.6 -0.2 -2.8 12/08/19 12/13/19 12/14/19 04:12 04:18 04:16 ABG pH 7.27 L 7.31 L 7.33 L ABG pCO2 49 H 40 30 L ABG pO2 70 L 72 L 80 ABG HCO3 22 20 16 L ABG O2 Saturation 91.9 91.5 94.2 ABG Base Excess -5.2 -6.2 -9.3 L Diagnostic Findings No new imaging Coding Level of Care Code Critical Care 1st 30-74 mins Diagnoses ARDS (adult respiratory distress syndrome) J80 JACQUELINE (acute kidney injury) N17.9 Sepsis A41.9 Metabolic encephalopathy G93.41 Acute respiratory failure with hypoxia J96.01 Diabetes mellitus type II, uncontrolled E11.65
[2019-12-22] MEDS: PIPERACILLIN/TAZOBACTAM 4.5 GM in DEXTROSE 5% 100 ML IV SCH ×2 (11:33→23:24)
--- NOTE | 2019-12-22 12:12 | Nephrology Progress Note ---
Date of Service December 22, 2019 Assessment & Plan (1) JACQUELINE (acute kidney injury): 64-year-old gentlemen admitted with acute respiratory failure, ARDS, remained intubated since 12/05/19. Flu, bio fire and COVID-19 x 2 were negative although clinically high suspicion for COVID-19 and remain in isolation. Developed AK I and has been on dialysis via temporary dialysis catheter, over last 2 days there has been some sign of renal recovery, started to make urine, made 500 mL over last 24 hour. Had dialysis yesterday. Today blood pressure electrolyte acceptable. Has been on Lasix 40 milligram IV twice a day. CPAP trial was done yesterday however patient remains intubated today as has been minimally responsive off sedation. Renal function continues to worsen off of dilaysis but UO improved significantly > 2 L. BP well controlled. --most likely will need hD tomorrow, will wait for mornign lab to decide as UO has been great --suggest to stop lasix, keep even, --KCL 20 meq x 1 dose now will follow (2) ARDS (adult respiratory distress syndrome): (3) Hypertension: (4) Diabetes mellitus type II, uncontrolled: (5) Hypokalemia: (2) ARDS (adult respiratory distress syndrome): Admission and Anticipated Discharge Date Admission Date: December 05, 2019 Subjective Mr. Hinkle remains intubated today. He is off sedation but still minimally responsive. Blood pressure improved. Potassium slightly low at 3.2. Had dialysis yesterday, started to make urine, overnight had 500 mL urine output. Review of Systems Review of Systems: Unobtainable due to endotracheal tube Physical Exam Physical Exam: No in person exam as pt is isolated Constitutional: + ill appearing and + mechanically ventilated; no acute distress Results & Data ([facility]) Vital Signs (Past 12 Hours) Vital Signs Temp Pulse Resp BP Pulse Ox 12/22/19 09:00 72 97 12/22/19 08:58 76 137/83 97 12/22/19 07:58 36.9 C 75 149/75 H 95 12/22/19 07:27 71 12/22/19 07:15 68 24 94 12/22/19 06:58 73 157/84 H 95 12/22/19 06:19 71 159/86 H 95 12/22/19 04:58 72 172/106 H 94 12/22/19 04:00 82 23 92 12/22/19 03:58 37.1 C 84 160/92 H 92 12/22/19 02:58 84 162/97 H 92 12/22/19 01:58 83 164/85 H 92 12/22/19 00:58 36.9 C 82 165/84 H 91 PG Care Time/CCT Total # of Minutes Spent Total Time Spent with Patient: Total time spent is greater than 50% in coordination of care (as documented) at patient's floor/unit and/or counseling patient: Coding Level of Care Code 91169 Subseq Hosp Care Lvl 3 Diagnoses JACQUELINE (acute kidney injury) N17.9 ARDS (adult respiratory distress syndrome) J80
[2019-12-22] MEDS ORDERED: ALTEPLASE, RECOMBINANT 1 MG/ML 2ML VIAL INSTIL ONE (12:29)
--- NOTE | 2019-12-22 15:04 | Hospitalist Progress Note ---
Date of Service December 22, 2019 Assessment & Plan (1) Acute respiratory failure with hypoxia: B/l pneumonia on chest x-ray. Clinical picture highly concerning for COVID-19, although two nasopharyngeal tests have come back negative for COVID-19 ([facility] on 12/04; [employer] on 12/07). No plans for further testing as this would not change treatment or prognosis at this time. - Continues with hemodialysis to remove volume and help correct acidosis, treat azotemia -> New central line placed on 12/18. - On Zosyn at present per ICU team. - Continues on vent -> mental status prohibiting extubation (2) Afib: Went into afib with RVR on 12/16. Required cardioversion when he became hypotensive, but back into it. - Converted to sinus rhythm on 12/19. No further episodes as of 12/20. - Now on metoprolol tartrate 50 mg NG Q8h & amiodarone 200 mg NG BID (3) ARDS (adult respiratory distress syndrome): As above, unclear etiology, COVID testing was negative from both [facility] and [facility]. - Started trial of IV steroids on 12/10 - continue to taper per pulmonary/ICU (4) Suspected 2019 novel coronavirus infection: See above in "acute hypoxic resp failure." - Biofire negative x 2 - Flu negative - COVID-19 negative on 12/27 from [facility] and on [facility] COVID test on 12/07. (5) Sepsis: Secondary to pneumonia. - Continue supportive care (6) Acute renal failure (ARF): Secondary to dehydration/sepsis/ATN. - Now on HD - Continue to hold MIKAEL and HCTZ - Appreciate nephrology consultation for hemodialysis management of renal failure -> likely to require HD tomorrow (7) Hypertension: Was hypotensive on 12/19 with afib with RVR, but now on 12/20, his BP is up. - On beta-kristian as above for rate-control and now on hydralazine 10 mg NG QID per ICU team. (8) Chronic obstructive pulmonary disease: By history, but not on inhalers at home. (9) Current smoker: 50+ years of smoking per patient. (10) Gastroesophageal reflux disease: Pepcid IV daily (11) Gout: No recent issues. Not on prophylaxis. (12) Diabetes mellitus type II, uncontrolled: Hyperglycemic ICU protocol, hyperglycemia worsened with starting IV steroids-pharmacy has intensified the insulin regimen and steroids are being tapered down-glucose is now improved. - Defer to pharmacy - Now on basal-bolus on 12/18 -> Sugars doing better. (13) DVT prophylaxis: Heparin 5,000 units SQ Q8h Admission and Anticipated Discharge Date Admission Date: December 05, 2019 Subjective no major changes today Dr. Lincoln anticipating patient needing HD tomorrow reviewed chart, reviewed labs ICU managing patient Review of Systems Review of Systems: Unobtainable due to endotracheal tube Physical Exam Physical Exam: did not examine, did not enter room due to airborne precautions and wanting to preserve PPE, the filling technician examined patient Results & Data Results & Data ([facility]) Vital Signs (Past 12 Hours) Vital Signs Temp Pulse Resp BP Pulse Ox 12/22/19 13:00 70 96 12/22/19 12:58 71 150/85 H 96 12/22/19 11:58 36.7 C 81 152/88 H 95 12/22/19 11:50 77 23 94 12/22/19 10:58 79 149/93 H 95 12/22/19 09:58 74 164/87 H 96 12/22/19 09:00 72 97 12/22/19 08:58 76 137/83 97 12/22/19 07:58 36.9 C 75 149/75 H 95 12/22/19 07:27 71 12/22/19 07:15 68 24 94 12/22/19 06:58 73 157/84 H 95 12/22/19 06:19 71 159/86 H 95 12/22/19 04:58 72 172/106 H 94 12/22/19 04:00 82 23 92 12/22/19 03:58 37.1 C 84 160/92 H 92 Laboratory Results Laboratory Results - last 24 hr 12/21/19 12/21/19 12/21/19 16:23 19:40 23:36 WBC RBC Hgb Hct MCV MCH MCHC RDW Std Deviation RDW Coeff of Josué Plt Count MPV Neutrophils % (Manual) Lymphocytes % (Manual) Monocytes % (Manual) Eosinophils % (Manual) Metamyelocytes % (Man) Neutrophils # (Manual) Total Absolute Neuts Lymphocytes # (Manual) Total Abs Lymphocytes Monocytes # (Manual) Eosinophils # (Manual) Metamyelocytes # (Man) Polychromasia Sample Site POC pH POC pCO2 POC pO2 POC HCO3 POC Total CO2 POC Base Excess POC ABG O2 Sat Garett Test O2 Delivery Device POC O2 Rate Minute Ventilation Tidal Volume PEEP Sodium Potassium Chloride Carbon Dioxide Anion Gap BUN Creatinine Est Cr Clr Drug Dosing Est GFR ( Amer) Est GFR (Non-Af Amer) BUN/Creatinine Ratio Glucose POC Glucose 173 H 153 H 162 H Calcium Phosphorus Magnesium 12/22/19 12/22/19 12/22/19 03:50 03:53 04:06 WBC RBC Hgb Hct MCV MCH MCHC RDW Std Deviation RDW Coeff of Josué Plt Count MPV Neutrophils % (Manual) Lymphocytes % (Manual) Monocytes % (Manual) Eosinophils % (Manual) Metamyelocytes % (Man) Neutrophils # (Manual) Total Absolute Neuts Lymphocytes # (Manual) Total Abs Lymphocytes Monocytes # (Manual) Eosinophils # (Manual) Metamyelocytes # (Man) Polychromasia Sample Site L Radial POC pH 7.51 H* POC pCO2 31 L POC pO2 61 L POC HCO3 24 POC Total CO2 25 POC Base Excess 1.0 POC ABG O2 Sat 93.0 Garett Test Pass O2 Delivery Device Ventilator POC O2 Rate 15 Minute Ventilation 12 Tidal Volume 450 PEEP 5 Sodium 136 Potassium 3.2 L Chloride 101 Carbon Dioxide 25 Anion Gap 10.0 BUN 114 H Creatinine 3.27 H D Est Cr Clr Drug Dosing 25.1 Est GFR ( Amer) 21.6 Est GFR (Non-Af Amer) 18.6 BUN/Creatinine Ratio 34.8 H Glucose 117 H POC Glucose 130 H Calcium 7.9 L Phosphorus 7.7 H D Magnesium 2.3 12/22/19 12/22/19 12/22/19 04:06 07:50 11:40 WBC 20.05 H RBC 3.73 L Hgb 11.0 L Hct 33.7 L MCV 90.3 MCH 29.5 MCHC 32.6 RDW Std Deviation 48.5 H RDW Coeff of Josué 15.2 H Plt Count 367 MPV 10.1 Neutrophils % (Manual) 84.4 Lymphocytes % (Manual) 4.3 Monocytes % (Manual) 7.8 Eosinophils % (Manual) 0.9 Metamyelocytes % (Man) 2.6 Neutrophils # (Manual) 16.92 H Total Absolute Neuts 16.92 H Lymphocytes # (Manual) 0.86 L Total Abs Lymphocytes 0.86 L Monocytes # (Manual) 1.56 H Eosinophils # (Manual) 0.18 Metamyelocytes # (Man) 0.52 H Polychromasia 1+ Sample Site POC pH POC pCO2 POC pO2 POC HCO3 POC Total CO2 POC Base Excess POC ABG O2 Sat Garett Test O2 Delivery Device POC O2 Rate Minute Ventilation Tidal Volume PEEP Sodium Potassium Chloride Carbon Dioxide Anion Gap BUN Creatinine Est Cr Clr Drug Dosing Est GFR ( Amer) Est GFR (Non-Af Amer) BUN/Creatinine Ratio Glucose POC Glucose 90 170 H Calcium Phosphorus Magnesium Medications Administered Current Inpatient Medications Acetaminophen (Tylenol) 650 mg PO Q4H PRN PRN Reason: Fever Stop: 01/18/20 13:56 Last Admin: 12/19/19 14:48 Dose: 650 mg Documented by: Amiodarone HCl (Cordarone) 200 mg PO BID@0800,2000 KEARA Stop: 01/20/20 19:59 Last Admin: 12/22/19 07:42 Dose: 200 mg Documented by: Dextrose (Dextrose 50%) 25 - 50 ml IV UD PRN; Protocol PRN Reason: Hypoglycemia Protocol Stop: 01/04/20 17:29 Last Admin: 12/17/19 22:29 Dose: 50 ml Documented by: Enteral Nutritional Formula (Novasource Renal 2.0 Kurt) 1,000 ml OG UD KEARA; Protocol Stop: 01/16/20 11:59 Last Admin: 12/20/19 04:32 Dose: 1,000 ml Documented by: Glucagon (Glucagen) 1 mg IM UD PRN; Protocol PRN Reason: Hypoglycemia Protocol Stop: 01/04/20 17:29 Glucose (Glucose 40%) 15 - 30 gm PO UD PRN; Protocol PRN Reason: Hypoglycemia Protocol Stop: 01/04/20 17:29 Glucose (Dex4 Glucose) 4 - 8 tabs PO UD PRN; Protocol PRN Reason: Hypoglycemia Protocol Stop: 01/04/20 17:29 Heparin Sodium (Beef Lung) (Heparin Sod 10 Unit/Ml Flush) 5 ml FLUSH PRN PRN PRN Reason: Flush Stop: 01/04/20 22:56 Last Admin: 12/22/19 13:45 Dose: 5 ml Documented by: Heparin Sodium (Porcine) (Heparin Sodium (Porcine)) 5,000 units SQ Q8H KEARA Stop: 01/11/20 11:59 Last Admin: 12/22/19 11:33 Dose: 5,000 units Documented by: Hydralazine HCl (Apresoline) 25 mg GT Q6 [facility] Stop: 01/21/20 17:59 Famotidine 20 mg/ Syringe 5 mls @ 2.5 mls/min IV DAILY@0800 [facility] Stop: 01/17/20 07:59 Last Admin: 12/22/19 07:43 Dose: 2.5 mls/min Documented by: Piperacillin Sod/Tazobactam (Sod 4.5 gm/ Dextrose) 120 mls @ 30 mls/hr IV Q12H [facility]; Protocol Stop: 12/25/19 00:00 Last Admin: 12/22/19 11:33 Dose: 30 mls/hr Documented by: Insulin Human Regular 5 units/ (Syringe) 5 mls @ 30 mls/min IV Q4 [facility] Stop: 01/17/20 00:29 Last Admin: 12/20/19 08:04 Dose: Not Given Documented by: Methylprednisolone 20 mg/ (Syringe) 0.32 mls @ 1.5 mls/min IV DAILY@0800 [facility] Stop: 01/20/20 07:59 Last Admin: 12/22/19 07:44 Dose: 1.5 mls/min Documented by: Furosemide 40 mg/ Syringe 4 mls @ 4 mls/min IV BID@0800,1600 [facility] Stop: 01/20/20 15:59 Last Admin: 12/22/19 07:44 Dose: 4 mls/min Documented by: Insulin Aspart (Novolog Flexpen) 0 units SQ Q4 [facility]; Protocol Stop: 01/07/20 12:14 Last Admin: 12/22/19 11:56 Dose: 9 units Documented by: Insulin Glargine (Lantus Solostar Pen) 0 units SC BID@0800,2000 [facility]; Protocol Stop: 01/15/20 19:59 Last Admin: 12/22/19 07:52 Dose: 30 units Documented by: Metoprolol Tartrate (Lopressor) 50 mg PO Q8H [facility] Stop: 01/20/20 11:59 Last Admin: 12/22/19 11:32 Dose: 50 mg Documented by: Miscellaneous (Carbohydrates For Hypoglycemia) 15 - 30 gm PO UD PRN PRN Reason: Hypoglycemia Treatment Stop: 01/04/20 17:29 Miscellaneous Information (Consult Glycemic Management Pharmacy) 1 ea N/A UD PRN PRN Reason: Consult Stop: 01/07/20 12:04 Miscellaneous Information (Consult) 1 ea N/A UD PRN PRN Reason: Consult Stop: 01/16/20 14:05 Multi-Ingredient Cream (Lacri-Lube) 1 appln OP Q4H PRN PRN Reason: Undecided Stop: 01/04/20 16:44 Last Admin: 12/20/19 14:05 Dose: 1 appln Documented by: Multivitamins/Minerals (Cerovite Liquid) 15 ml PO QAM@0800 [facility] Stop: 01/16/20 08:59 Last Admin: 12/22/19 07:43 Dose: 15 ml Documented by: Nutritional Formula (Prosource No Carb) 30 ml OG TID@0800,1200,1600 [facility] Stop: 01/18/20 15:59 Last Admin: 12/22/19 11:33 Dose: 30 ml Documented by: Nutritional Formula (Prosource No Carb) 30 ml OG DAILY@2000 [facility] Stop: 01/18/20 19:59 Last Admin: 12/21/19 19:47 Dose: 30 ml Documented by: PG Care Time/CCT Total # of Minutes Spent Total Time Spent with Patient: Total time spent is greater than 50% in coordination of care (as documented) at patient's floor/unit and/or counseling patient: Coding Level of Care Code None Diagnoses Acute respiratory failure with hypoxia J96.01 Afib I48.91 ARDS (adult respiratory distress syndrome) J80 Suspected 2019 novel coronavirus infection R68.89 Sepsis A41.9 Acute renal failure (ARF) N17.9 Acute renal failure type: unspecified Hypertension I10 Chronic obstructive pulmonary disease J44.9 Current smoker F17.200 Gastroesophageal reflux disease K21.9 Gout M10.9 Diabetes mellitus type II, uncontrolled E11.65 DVT prophylaxis Z29.9 (1) Acute renal failure (ARF) Acute renal failure type: unspecified Qualified Code(s): N17.9 - Acute kidney failure, unspecified
[2019-12-22] MEDS: NOVASOURCE RENAL 2.0 CAL 1000ML BAG OG SCH (17:29)
[2019-12-23] MEDS: METOPROLOL TARTRATE 50 MG TAB PO SCH ×3 (03:33→19:09)
[2019-12-23] MEDS: HEPARIN SOD 5,000 UNIT/0.5 ML VIAL SQ SCH ×3 (03:33→19:08)
[2019-12-23] MEDS: INSULIN ASPART 100 UNITS/ML 3 ML PEN SQ SCH ×6 (04:16→23:21)
[2019-12-23 04:35] LABS: iSTAT Allen Test Pass; iSTAT Arterial Blood Gas HCO3 25 meg/L (19-24); iSTAT Arterial Blood Gas pCO2 33 mmHg (35-46); iSTAT Arterial Blood Gas pO2 78 mmHg (80-95); iSTAT Carbon Dioxide 26 mmol/L (24-31); iSTAT Site R Radial
[2019-12-23 05:01] LABS: Basophils # (auto) 0.01 K/uL (0-0.2); Basophils % (auto) 0.1 %; Eosinophils # (auto) 0.21 K/uL (0-0.5); Eosinophils % (auto) 1.1 %; Hemoglobin 10.9 g/dL (14.0-18.0); Immature Granulocytes # (auto) 0.26 K/uL (0.00-0.02); Immature Granulocytes % (auto) 1.3 %; Lymphocytes # (auto) 1.49 K/uL (1.2-3.4); Lymphocytes % (auto) 7.7 %; Mean Corpuscular Hemoglobin 29.1 pg (25-34); Mean Corpuscular Hgb Conc 32.1 g/dL (32-36); Mean Corpuscular Volume 90.7 fL (80-100); Mean Platelet Volume 10.2 fL (7.4-10.4); Monocytes # (auto) 0.54 K/uL (0.11-0.59); Monocytes % (auto) 2.8 %; Neutrophils # (auto) 16.96 K/uL (1.4-6.5); Platelet Count 391 K/uL (130-400); RDW Coefficient of Variation 15.4 % (11.5-14.5); RDW Standard Deviation 49.5 fL (36.4-46.3); Red Blood Count 3.75 M/uL (4.7-6.1); White Blood Count 19.47 K/uL (4.8-10.8)
[2019-12-23 05:45] LABS: Albumin Level 1.7 gm/dl (3.4-5.0); BUN Creatinine Ratio 39.2 (10-20); Calcium 8.2 mg/dl (8.5-10.1); Creatinine Clr Calc Pharmacy 23.8 ml/min; Est GFR (African American) 20.2; Est GFR (Non-African American) 17.5; Magnesium 2.4 mg/dl (1.8-2.4); Potassium 3.2 mmol/L (3.5-5.1)
[2019-12-23 05:48] LABS: Bilirubin Direct 0.2 mg/dl (0-0.2); Bilirubin,Total 0.5 mg/dl (0.2-1); Total Protein 6.4 gm/dl (6.4-8.2)
[2019-12-23] MEDS ORDERED: SODIUM CHLORIDE 0.9% 1000ML 1,000 ML IV PRN (08:33)
[2019-12-23] MEDS: MULTI VIT W/MINERALS LIQUID 15 ML UDP PO SCH (08:42)
[2019-12-23] MEDS: methylPREDNISolone 20 MG in SYRINGE 0 ML IV SCH (08:42)
[2019-12-23] MEDS: FAMOTIDINE 20 MG in SYRINGE 3 ML IV SCH (08:42)
[2019-12-23] MEDS: PROSOURCE NO CARB 30 ML/PKT OG SCH ×5 (08:43→19:11)
--- NOTE | 2019-12-23 09:15 | XRay Report ---
XR chest 1V portable CLINICAL HISTORY: follow up infiltrates dyspnea COMPARISON STUDY: 12/19/2019 FINDINGS: Slight improvement in aeration of both hemithoraces. Residual parenchymal infiltrative vincent ges lung bases. Prominence of the pulmonary vasculature persists. There is a central catheter in superior vena cava. There is an endotracheal tube 4 cm above the isra. IMPRESSION: 1. Basilar parenchymal infiltrates stable to slightly improved from the prior exam with improved visi bility of the diaphragms. 2. Catheters and endotracheal tubes remain in good position. 3. Unchanged pulmonary vascular congestion. 4. Nasogastric tube is within the mid gastric body. ACT 112: Negative or not required by law. The above report was generated using voice recognition software. It may contain grammatical, syntax or spelling errors. Electronically signed by: Lukas Patterson M.D. 12/23/2019 9:14 AM
[2019-12-23] MEDS: AMIODARONE 200 MG TAB PO SCH ×2 (09:31→19:08)
[2019-12-23] MEDS: INSULIN GLARGINE SOLOSTAR 100 UNITS/ML 3 ML PEN SC SCH ×2 (09:32→19:31)
--- NOTE | 2019-12-23 10:21 | Critical Care Progress Note ---
Date of Service December 23, 2019 Assessment & Plan (1) ARDS (adult respiratory distress syndrome): Patient has a very prolonged ICU stay with prolonged mechanical ventilation. 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 He is also now in renal failure requiring intermittent hemodialysis. His BUN is extremely elevated and potentially contributing to his metabolic encephalopathy. I discussed the case with the patient's safety technician. We will pursue 2 days in a row of dialysis in the hopes of reducing his BUN level. If there is no improvement encephalopathy, we will likely proceed with an MRI of his brain and consider an EEG/EMG in the future if possible. I did broach the topic of tracheostomy with the patient's , Pretty Hinkle. She indicated to me that her would likely not want a trach. We will have to readdress these concerns in the near future given his lengthy intubation. He certainly is at risk for very significant tracheomalacia and subglottic stenosis related to the prolonged intubation. He has been afebrile for 4 days. We will go ahead and stop antibiotics today. We are also going to wean the methylprednisone off. I did repeat a chest x-ray today which is relatively unchanged from 4 days ago. He still looks a bit volume overloaded. He is 15 L positive as per the electronic medical record. His LFTs are a little bit up today. We will reevaluate the LFTs tomorrow and consider a right upper quadrant ultrasound if the LFTs continue to trend upwards. Notably, he is on amiodarone which may cause an LFT derangement, however, he is on a relatively low dose of the amiodarone. He is on the amiodarone for sepsis related atrial fibrillation. Holding Lasix today. Continuing GI prophylaxis with famotidine. Continuing DVT prophylaxis with heparin 3 times daily. Continue tube feeds. We will try to continue with range of motion exercises per the bedside RN and see if our physical therapy colleagues can help with his mobility. With regards to his ventilator, we will continue pressure support during the day and putting him back on a rate in the evening time. Unfortunately, I do feel that Mr. Hinkle's prognosis is very guarded at this time. Continue ICU care. CRITICAL CARE TIME - I have personally spent 45 minutes of critical care time in the direct management of this patient. This is a life/limb threatening event. This includes time spent evaluating patient, direct bedside care, chart review, placing orders, interpretation of diagnostic studies, discussion with consultants, patient, and family members, as well as other required patient management activities. This time is exclusive of all separately billable procedures, and teaching time and separate from and in addition to any other critical care service time. (2) JACQUELINE (acute kidney injury): (3) Sepsis: (4) Metabolic encephalopathy: (5) Acute respiratory failure with hypoxia: (6) Diabetes mellitus type II, uncontrolled: (7) Acute hypoxemic respiratory failure: (8) Metabolic encephalopathy: Admission and Anticipated Discharge Date Admission Date: December 05, 2019 Subjective Patient seen and examined today. Patient is lying in bed with an endotracheal tube in place. He opens his eyes to sound stimulus. Otherwise he does not participate in the exam and does not follow any commands. He is currently on mechanical ventilation with a pressure support mode of 5/5. There are no continuous drips. No acute events overnight per the bedside nurse. Physical Exam Constitutional: + mechanically ventilated and + overweight Eyes: PERRL Neck: trachea midline, no thyromegaly Cardiovascular: Rate/Rhythm: regular rate; not tachycardic Heart Sounds: normal S1 and normal S2; no murmur Extremities: + edema Gastrointestinal (Abdomen): normal bowel sounds, soft, nontender, no hepatosplenomegaly Musculoskeletal: no cyanosis or clubbing, extremities motor strength 5/5 Skin: no rashes, warm and dry Neurologic: Arms and legs are essentially flaccid. No significant tone noted. Results & Data Results & Data ([facility]) Vital Signs (Past 12 Hours) Vital Signs Temp Pulse Resp BP Pulse Ox 12/23/19 06:55 75 25 H 92 12/23/19 04:59 98.6 F 66 155/85 H 97 12/23/19 04:32 74 175/91 H 94 12/23/19 04:20 79 26 H 94 12/23/19 02:58 79 169/85 H 94 12/23/19 01:59 78 156/85 H 93 12/23/19 00:58 77 166/93 H 94 12/23/19 00:00 73 94 12/22/19 23:58 98.8 F 73 153/94 H 94 12/22/19 23:39 72 155/90 H 95 12/22/19 23:35 73 25 H 93 Coding Level of Care Code Critical Care 1st 30-74 mins Diagnoses ARDS (adult respiratory distress syndrome) J80 JACQUELINE (acute kidney injury) N17.9 Sepsis A41.9 Metabolic encephalopathy G93.41 Acute respiratory failure with hypoxia J96.01 Diabetes mellitus type II, uncontrolled E11.65 Acute hypoxemic respiratory failure J96.01 Metabolic encephalopathy G93.41 Time Spent (min) 45
--- NOTE | 2019-12-23 11:19 | Nephrology Progress Note ---
Date of Service December 23, 2019 Assessment & Plan (1) JACQUELINE (acute kidney injury): 64-year-old gentlemen admitted with acute respiratory failure, ARDS, remained intubated since 12/05/19. Flu, bio fire and COVID-19 x 2 were negative although clinically high suspicion for COVID-19 and remain in isolation. Developed AK I and has been on dialysis via temporary dialysis catheter, over last 2 days there has been some sign of renal recovery, started to make urine, made 500 mL over last 24 hour. Had dialysis yesterday. Today blood pressure electrolyte acceptable. Has been on Lasix 40 milligram IV twice a day. CPAP trial was done yesterday however patient remains intubated today as has been minimally responsive off sedation. Renal function continues to worsen off of dilaysis but UO improved significantly > 2 L. BP well controlled. K has been low with high UO. --HD today, plan for UF as tolerated, most likely will have to continue on IHD Use 4 K bath, as K has been low. OK to use normal K with feeding and replace with KCL as needed to keep K >3.5 --will plan for TDC in next 2 days --HD tomorrow if BUN remained elevated, as pt continue to be minimally responsive making it difficult to extubate although tolerating CPAP and BP decent. ICU planning for another COVID-19 test with nasopharyngeal swab. --OK to continue lasix as needed. --try to adjust phosphate with feeding if possible to lower Phos. will follow (2) ARDS (adult respiratory distress syndrome): (3) Hypertension: (4) Diabetes mellitus type II, uncontrolled: (5) Hypokalemia: (2) ARDS (adult respiratory distress syndrome): -- Biofire and COVID testing negative. Etiology of ARDS unclear. Patient remains on droplet precautions. Sedatives have been lifted and ICU team is attempting to wean patient from ventilator -- Steroid therapy is being tapered. FiO2 reduced to 30% with PEEP 5 Admission and Anticipated Discharge Date Admission Date: December 05, 2019 Subjective Mr. Hinkle remains intubated today. He is off sedation but still minimally responsive. Blood pressure improved. Potassium slightly low at 3.2. Had dialysis Monday, >2 l urine output but BUN/Cr continues to rise.. Review of Systems Review of Systems: Unobtainable due to endotracheal tube and Other (pt in isolation) Physical Exam Physical Exam: No in person exam as pt is isolated Constitutional: + ill appearing and + mechanically ventilated; no acute distress Results & Data ([facility]) Vital Signs (Past 12 Hours) Vital Signs Temp Pulse Resp BP Pulse Ox 12/23/19 06:55 75 25 H 92 12/23/19 04:59 37 C 66 155/85 H 97 12/23/19 04:32 74 175/91 H 94 12/23/19 04:20 79 26 H 94 12/23/19 02:58 79 169/85 H 94 12/23/19 01:59 78 156/85 H 93 12/23/19 00:58 77 166/93 H 94 12/23/19 00:00 73 94 12/22/19 23:58 37.1 C 73 153/94 H 94 12/22/19 23:39 72 155/90 H 95 12/22/19 23:35 73 25 H 93 PG Care Time/CCT Total # of Minutes Spent Total Time Spent with Patient: Total time spent is greater than 50% in coordination of care (as documented) at patient's floor/unit and/or counseling patient: Coding Level of Care Code 63260 Subseq Hosp Care Lvl 3 Diagnoses JACQUELINE (acute kidney injury) N17.9 ARDS (adult respiratory distress syndrome) J80
--- NOTE | 2019-12-23 12:20 | Pharmacy Report ---
Pharmacy Glycemic Short Note 2 - Date of Service December 23, 2019 - Glycemic Short BSG Results (Last 24 hours): 12/22/19 12/22/19 12/22/19 16:15 19:26 23:35 Glucose POC Glucose 210 H 175 H 203 H 12/23/19 12/23/19 12/23/19 03:40 04:13 08:52 Glucose 185 H POC Glucose 197 H 160 H OUTPATIENT ANTIDIABETIC REGIMEN: Per med rec: * Lantus 54 units SQ qPM * Glimepiride, linagliptin, and metformin * A1c = 9.4% 12/06/19 ASSESSMENT: 12/22: * Received 133 units of insulin yesterday. * 65 units of basal * 68 units of bolus * Patient remains intubated this AM * Steroid dosage will decrease again tomorrow, Solu-Medrol 20mg daily --> 10mg daily * Uncertain of basal insulin needs as pt not fasting due to continuous tube feeds. Current basal dose is only 20% greater than outpt regimen - reasonable to continue current dosage at this time given severity of illness and steroid provision. * Tube feeds continue with Novosource Renal at 30ml/hr * BSGs did climb yesterday following reduction in prandial insulin dosage - will increase dosage somewhat today * Pt to have dialysis today - may become more insulin sensitive following treatments PLAN FOR INPATIENT GLYCEMIC CONTROL: * Continue to hold outpatient oral diabetes medications (metformin, linagliptin) * Basal: no change * Lantus BID per the following scale: * 25 units for BSG < 140 mg/dL * 35 units for BSG 140-180 mg/dL * 45 units for BSG 181 or above * Bolus insulin: increase in prandial dose * NovoLog per scale q4h * Goal Range: Low 110 mg/dL - High 140 mg/dL * Correction Factor: 10 mg/dL/unit * Nutritional / Prandial insulin-- carb ratio of 1 unit per 3.5 grams CHO consumed PLAN FOR DISCHARGE: * pending
[2019-12-23] MEDS: HydrALAZINE TAB 50 MG TAB GT SCH ×3 (12:43→23:18)
--- NOTE | 2019-12-23 15:35 | Hospitalist Progress Note ---
Date of Service December 23, 2019 Assessment & Plan (1) Acute respiratory failure with hypoxia: B/l pneumonia on chest x-ray. Clinical picture highly concerning for COVID-19, although two nasopharyngeal tests have come back negative for COVID-19 ([facility] on 12/04; [facility] on 12/07). No plans for further testing as this would not change treatment or prognosis at this time. - Continues with hemodialysis to remove volume and help correct acidosis, treat azotemia -> New central line placed on 12/18. - Stopped abx today per ICU team. - Continues on vent -> Adjustments per ICU team. (2) Afib: Went into afib with RVR on 12/16. Required cardioversion when he became hypotensive, but back into it. - Converted to sinus rhythm on 12/19. No further episodes as of 12/20. - Now on metoprolol tartrate 50 mg NG Q8h & amiodarone 200 mg NG BID (3) ARDS (adult respiratory distress syndrome): As above, unclear etiology, COVID testing was negative from both [facility] and [facility]. - Started trial of IV steroids on 12/10 - continue to taper per pulmonary/ICU (4) Suspected 2019 novel coronavirus infection: See above in "acute hypoxic resp failure." - Biofire negative x 2 - Flu negative - COVID-19 negative on 12/27 from [facility] and on [facility] COVID test on 12/07. (5) Sepsis: Secondary to pneumonia. - Continue supportive care (6) Acute renal failure (ARF): Secondary to dehydration/sepsis/ATN. - Now on HD - Continue to hold MIKAEL and HCTZ - Appreciate nephrology consultation for hemodialysis management of renal failure -> HD running today. (7) Hypertension: Was hypotensive on 12/19 with afib with RVR, but now on 12/20, his BP is up. - On beta-kristian as above for rate-control and now on hydralazine 50 mg NG QID per ICU team. (8) Chronic obstructive pulmonary disease: By history, but not on inhalers at home. (9) Current smoker: 50+ years of smoking per patient. (10) Gastroesophageal reflux disease: Pepcid IV daily (11) Gout: No recent issues. Not on prophylaxis. (12) Diabetes mellitus type II, uncontrolled: Hyperglycemic ICU protocol, hyperglycemia worsened with starting IV steroids-pharmacy has intensified the insulin regimen and steroids are being tapered down-glucose is now improved. - Defer to pharmacy - Now on basal-bolus on 12/18 -> Sugars doing better. Now 160-200. (13) DVT prophylaxis: Heparin 5,000 units SQ Q8h Admission and Anticipated Discharge Date Admission Date: December 05, 2019 Subjective Intubated and obtunded. Due to patient's positive coronavirus status, ICU-status, and hospital policy, I did not enter the patient's room. I did assess the patient's mechanical ventilation settings, his/her respiratory status, and discussed his/her care with the RN and ICU attending. Review of Systems Review of Systems: Unobtainable due to cognitive status and Unobtainable due to endotracheal tube Physical Exam Constitutional: WD/WN, vitals as above + lethargic ENMT: external ear and nose normal, oropharynx normal (Intubated) Respiratory: + labored breathing and + tachypneic Cardiovascular: Rate/Rhythm: regular rate and regular rhythm Gastrointestinal (Abdomen): Inspection/Auscultation: abdomen normal to inspection; abdomen not distended Neurologic: + obtunded; + not awake Psychiatric: Orientation: + not alert Results & Data Results & Data ([facility]) Vital Signs (Past 12 Hours) Vital Signs Temp Pulse Resp BP Pulse Ox 12/23/19 15:04 79 147/77 H 96 12/23/19 15:00 79 96 12/23/19 14:45 77 95 12/23/19 14:41 78 134/69 94 12/23/19 14:30 81 91 12/23/19 14:26 81 153/68 H 90 12/23/19 14:15 74 97 12/23/19 14:11 36.7 C 74 164/79 H 97 12/23/19 14:00 74 98 12/23/19 13:56 83 168/75 H 98 12/23/19 13:45 73 97 12/23/19 13:41 74 160/79 H 98 12/23/19 13:30 76 97 12/23/19 13:26 78 168/91 H 98 12/23/19 13:15 79 98 12/23/19 13:11 81 169/80 H 98 12/23/19 13:00 85 97 12/23/19 12:56 86 171/80 H 97 12/23/19 12:45 84 97 12/23/19 12:40 85 171/76 H 96 12/23/19 12:30 82 96 12/23/19 12:15 78 97 12/23/19 12:01 82 96 12/23/19 11:59 84 173/89 H 97 12/23/19 11:48 78 172/84 H 95 12/23/19 11:45 76 94 12/23/19 11:30 74 97 12/23/19 11:22 78 181/91 H 97 12/23/19 11:15 73 98 12/23/19 11:01 76 95 12/23/19 10:59 78 187/83 H 96 12/23/19 10:45 77 94 12/23/19 10:30 74 97 12/23/19 10:15 79 94 12/23/19 10:01 83 95 12/23/19 09:59 80 134/65 93 12/23/19 09:54 74 175/80 H 92 12/23/19 09:45 79 95 12/23/19 09:30 37.1 C 79 175/80 H 93 12/23/19 09:15 76 96 12/23/19 09:01 79 96 12/23/19 08:59 79 173/72 H 97 12/23/19 08:45 77 90 12/23/19 08:43 77 171/100 H 91 12/23/19 08:30 80 96 12/23/19 08:15 77 96 12/23/19 08:01 77 96 12/23/19 07:59 80 168/78 H 96 12/23/19 07:45 75 96 12/23/19 07:30 75 97 12/23/19 06:55 75 25 H 92 12/23/19 04:59 37 C 66 155/85 H 97 12/23/19 04:32 74 175/91 H 94 12/23/19 04:20 79 26 H 94 PG Care Time/CCT Total # of Minutes Spent Total Time Spent with Patient: Total time spent is greater than 50% in coordination of care (as documented) at patient's floor/unit and/or counseling patient: Coding Level of Care Code 54477 Subseq Hosp Care Lvl 3 Diagnoses Acute respiratory failure with hypoxia J96.01 Afib I48.91 ARDS (adult respiratory distress syndrome) J80 Suspected 2019 novel coronavirus infection R68.89 Sepsis A41.9 Acute renal failure (ARF) N17.9 Acute renal failure type: unspecified Hypertension I10 Chronic obstructive pulmonary disease J44.9 Current smoker F17.200 Gastroesophageal reflux disease K21.9 Gout M10.9 Diabetes mellitus type II, uncontrolled E11.65 DVT prophylaxis Z29.9 (1) Acute renal failure (ARF) Acute renal failure type: unspecified Qualified Code(s): N17.9 - Acute kidney failure, unspecified
[2019-12-23] MEDS: CALCIUM CARBONATE 1,250 MG/5 ML UDC NG SCH ×2 (17:10→23:19)
[2019-12-23] MEDS: TUBE FEEDING WATER FLUSH NG SCH ×2 (17:11→23:17)
[2019-12-23] MEDS: NOVASOURCE RENAL 2.0 CAL 1000ML BAG OG SCH (23:19)
[2019-12-24] MEDS: HEPARIN SOD 5,000 UNIT/0.5 ML VIAL SQ SCH ×3 (03:56→20:02)
[2019-12-24] MEDS: METOPROLOL TARTRATE 50 MG TAB PO SCH ×3 (03:57→20:03)
[2019-12-24] MEDS: INSULIN ASPART 100 UNITS/ML 3 ML PEN SQ SCH ×5 (04:04→20:03)
[2019-12-24 04:23] LABS: Hematocrit (blood only) 35.3 % (42-52); Hemoglobin 11.5 g/dL (14.0-18.0); Mean Corpuscular Hemoglobin 29.7 pg (25-34); Mean Corpuscular Hgb Conc 32.6 g/dL (32-36); Mean Corpuscular Volume 91.2 fL (80-100); Mean Platelet Volume 9.8 fL (7.4-10.4); Platelet Count 395 K/uL (130-400); RDW Coefficient of Variation 15.6 % (11.5-14.5); RDW Standard Deviation 50.1 fL (36.4-46.3); Red Blood Count 3.87 M/uL (4.7-6.1); White Blood Count 19.81 K/uL (4.8-10.8)
[2019-12-24 04:41] LABS: Albumin Level 1.8 gm/dl (3.4-5.0); BUN Creatinine Ratio 34.2 (10-20); Bilirubin Direct 0.2 mg/dl (0-0.2); Calcium 8.1 mg/dl (8.5-10.1); Est GFR (African American) 27.6; Est GFR (Non-African American) 23.8; Magnesium 2.2 mg/dl (1.8-2.4); Potassium 3.3 mmol/L (3.5-5.1)
[2019-12-24 04:42] LABS: iSTAT Allen Test Pass; iSTAT Arterial Blood Gas HCO3 24 meg/L (19-24); iSTAT Arterial Blood Gas pCO2 31 mmHg (35-46); iSTAT Arterial Blood Gas pH 7.49 (7.35-7.45); iSTAT Arterial Blood Gas pO2 80 mmHg (80-95); iSTAT Carbon Dioxide 24 mmol/L (24-31); iSTAT Site R Radial
[2019-12-24 04:52] LABS: Basophils # (auto) 0.02 K/uL (0-0.2); Basophils % (auto) 0.1 %; Eosinophils # (auto) 0.14 K/uL (0-0.5); Eosinophils % (auto) 0.7 %; Lymphocytes # (auto) 2.09 K/uL (1.2-3.4); Lymphocytes % (auto) 10.6 %; Monocytes # (auto) 0.51 K/uL (0.11-0.59); Monocytes % (auto) 2.6 %; Neutrophils # (auto) 16.65 K/uL (1.4-6.5)
[2019-12-24 04:56] LABS: Bilirubin,Total 0.5 mg/dl (0.2-1); Phosphorus 5.9 mg/dl (2.5-4.9); Total Protein 6.7 gm/dl (6.4-8.2)
[2019-12-24] MEDS: HydrALAZINE TAB 50 MG TAB GT SCH ×3 (05:44→16:30)
--- NOTE | 2019-12-24 08:53 | Critical Care Progress Note ---
Date of Service December 24, 2019 Assessment & Plan (1) ARDS (adult respiratory distress syndrome): Patient has a very prolonged ICU stay with prolonged mechanical ventilation. 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 He is also now in renal failure requiring intermittent hemodialysis. His BUN is extremely elevated and potentially contributing to his metabolic encephalopathy. BUN has improved since the dialysis session yesterday. 2 L of ultrafiltrate were removed yesterday. He is to undergo another dialysis session today. Hopefully this will also clear his BUN further and help with his metabolic encephalopathy. We will attempt to send for repeat COVID-19 test today from a tracheal aspirate and a nasopharyngeal swab. If these are negative, this will make it easier for us to transport him to radiology so that he may undergo an MRI of his brain if deemed necessary by neurology. He apparently did have atrial fibrillation earlier in his hospital course prior to my taking over care of this patient. Certainly, he is at risk for recent stroke. I am also consulting neurology today. He may need to undergo an EEG. Additionally, his LFTs are trending up slowly and I was informed by radiology today that they would prefer to avoid doing a portable right upper quadrant ultrasound in hopes to mitigate exposure risk. I think for now we can trend his LFTs and if there should be a significant spike in his transaminitis or change, then we can obtain a right upper quadrant sono at that time. Weaning down his steroids. He is off antibiotics at this time. We are holding antibiotics unless he spikes a fever. Continue DVT prophylaxis. He needs aggressive physical therapy in order to regain some of his strength. He has a large sacral decubitus ulcer as well per nursing staff likely related to his limited mobility. Albumin is very low. Continue hydralazine for blood pressure control. Continue amiodarone 200 mg p.o. twice daily for rhythm control given earlier atrial fibrillation. Overall prognosis again is still poor. CRITICAL CARE TIME - I have personally spent 40 minutes of critical care time in the direct management of this patient. This is a life/limb threatening event. This includes time spent evaluating patient, direct bedside care, chart review, placing orders, interpretation of diagnostic studies, discussion with consultants, patient, and family members, as well as other required patient management activities. This time is exclusive of all separately billable procedures, and teaching time and separate from and in addition to any other critical care service time. (2) JACQUELINE (acute kidney injury): (3) Sepsis: (4) Metabolic encephalopathy: (5) Acute respiratory failure with hypoxia: (6) Diabetes mellitus type II, uncontrolled: (7) Acute hypoxemic respiratory failure: Admission and Anticipated Discharge Date Admission Date: December 05, 2019 Subjective Patient is laying in bed. Endotracheal tube in place. He seems to be tracking more with his eyes today. Still unable to move any of the extremities. Stable on the ventilator. Saturations in the low 90s. Respiratory rate around 26 on pressure support of 5/5. Physical Exam Constitutional: + mechanically ventilated and + overweight Eyes: PERRL Neck: trachea midline, no thyromegaly Cardiovascular: Rate/Rhythm: regular rate; not tachycardic Heart Sounds: normal S1 and normal S2; no murmur Extremities: + edema Gastrointestinal (Abdomen): normal bowel sounds, soft, nontender, no hepatosplenomegaly Musculoskeletal: no cyanosis or clubbing, extremities motor strength 5/5 Skin: no rashes, warm and dry Neurologic: Flaccid paralysis. Tracking with his eyes occasionally. Results & Data Results & Data ([facility]) Vital Signs (Past 12 Hours) Vital Signs Pulse Resp BP Pulse Ox 12/24/19 07:21 79 25 H 93 12/24/19 06:00 73 92 12/24/19 05:44 73 161/79 H 97 12/24/19 05:30 73 97 12/24/19 05:00 74 97 12/24/19 04:44 73 148/81 H 97 12/24/19 04:34 80 37 H 95 12/24/19 04:30 83 96 12/24/19 04:00 80 96 12/24/19 03:44 79 166/89 H 94 12/24/19 03:00 79 96 12/24/19 02:44 75 136/71 96 12/24/19 02:30 78 95 12/24/19 02:00 76 92 12/24/19 01:00 75 95 12/24/19 00:44 75 143/76 H 95 12/24/19 00:00 73 94 12/23/19 23:55 75 26 H 95 12/23/19 23:43 75 147/77 H 91 12/23/19 23:00 71 95 12/23/19 22:46 71 95 12/23/19 22:44 72 132/73 94 12/23/19 22:30 72 94 12/23/19 22:15 69 96 12/23/19 22:00 69 94 12/23/19 21:44 70 152/82 H 92 12/23/19 21:30 71 95 12/23/19 21:00 69 94 Coding Level of Care Code Critical Care 1st 30-74 mins Diagnoses ARDS (adult respiratory distress syndrome) J80 JACQUELINE (acute kidney injury) N17.9 Sepsis A41.9 Metabolic encephalopathy G93.41 Acute respiratory failure with hypoxia J96.01 Diabetes mellitus type II, uncontrolled E11.65 Acute hypoxemic respiratory failure J96.01 Time Spent (min) 40
[2019-12-24] MEDS: methylPREDNISolone 10 MG in SYRINGE 0 ML IV SCH (09:04)
[2019-12-24] MEDS: FAMOTIDINE 20 MG in SYRINGE 3 ML IV SCH (09:04)
[2019-12-24] MEDS: PROSOURCE NO CARB 30 ML/PKT OG SCH ×3 (09:04→20:05)
[2019-12-24] MEDS: INSULIN GLARGINE SOLOSTAR 100 UNITS/ML 3 ML PEN SC SCH ×2 (09:05→20:02)
[2019-12-24] MEDS: MULTI VIT W/MINERALS LIQUID 15 ML UDP PO SCH (09:05)
[2019-12-24] MEDS: AMIODARONE 200 MG TAB PO SCH ×2 (09:05→20:02)
[2019-12-24] MEDS: CALCIUM CARBONATE 1,250 MG/5 ML UDC NG SCH ×2 (10:11→16:30)
[2019-12-24] MEDS: TUBE FEEDING WATER FLUSH NG SCH ×2 (10:11→16:30)
[2019-12-24] MEDS ORDERED: POTASSIUM CHLORIDE 20 MEQ/15 ML UDC NG SCH (12:00)
--- NOTE | 2019-12-24 12:05 | Nephrology Progress Note ---
Date of Service December 24, 2019 Assessment & Plan (1) JACQUELINE (acute kidney injury): 64-year-old gentlemen admitted with acute respiratory failure, ARDS, remained intubated since 12/05/19. Flu, bio fire and COVID-19 x 2 were negative although clinically high suspicion for COVID-19 and remain in isolation. Developed AK I and has been on dialysis via temporary dialysis catheter, over last 2 days there has been some sign of renal recovery, started to make urine, made 500 mL over last 24 hour. Had dialysis yesterday. Today blood pressure electrolyte acceptable. Has been on Lasix 40 milligram IV twice a day. CPAP trial was done yesterday however patient remains intubated today as has been minimally responsive off sedation. Renal function continues to worsen off of dilaysis but UO improved significantly > 2 L. BP well controlled. K has been low with high UO. --hemodialysis today and plan to do [id number] dialysis again tomorrow to lower the BUN to see whether there is any improvement in mental status with lower BUN level. Will do dialysis with 4K bath. --ongoing discussion with family regarding goals of care, if patient's decide to be aggressive with care and do tracheostomy and dialysis, will schedule for tunneled dialysis catheter --pending another COVID-19 test with nasopharyngeal swab. --continue liquid phosphate binder with feeding will follow (2) ARDS (adult respiratory distress syndrome): (3) Hypertension: (4) Diabetes mellitus type II, uncontrolled: (5) Hypokalemia: (2) ARDS (adult respiratory distress syndrome): -- Biofire and COVID testing negative. Etiology of ARDS unclear. Patient remains on droplet precautions. Sedatives have been lifted and ICU team is attempting to wean patient from ventilator -- Steroid therapy is being tapered. FiO2 reduced to 30% with PEEP 5 Admission and Anticipated Discharge Date Admission Date: December 05, 2019 Subjective Mr. Hinkle remains intubated today. He is off sedation >2 days but still minimally responsive, although there has been slight positive change reported compared to yesterday. Blood pressure high, Potassium slightly low at 3.3. Had dialysis yesterday, >2 l urine output,BUN/Cr slightly better after dialysis yesterday. Review of Systems Review of Systems: Unobtainable due to cognitive status Physical Exam Physical Exam: No in person exam as pt is isolated Constitutional: + ill appearing and + mechanically ventilated; no acute distress Results & Data ([facility]) Vital Signs (Past 12 Hours) Vital Signs Temp Pulse Pulse Resp BP Pulse Ox 12/24/19 10:18 79 172/76 H 12/24/19 10:15 36.9 C 89 12/24/19 07:21 79 25 H 93 12/24/19 06:00 73 92 12/24/19 05:44 73 161/79 H 97 12/24/19 05:30 73 97 12/24/19 05:00 74 97 12/24/19 04:44 73 148/81 H 97 12/24/19 04:34 80 37 H 95 12/24/19 04:30 83 96 12/24/19 04:00 80 96 12/24/19 03:44 79 166/89 H 94 12/24/19 03:00 79 96 12/24/19 02:44 75 136/71 96 12/24/19 02:30 78 95 12/24/19 02:00 76 92 12/24/19 01:00 75 95 12/24/19 00:44 75 143/76 H 95 PG Care Time/CCT Total # of Minutes Spent Total Time Spent with Patient: Total time spent is greater than 50% in coordination of care (as documented) at patient's floor/unit and/or counseling patient: Coding Level of Care Code 12236 Subseq Hosp Care Lvl 3 Diagnoses JACQUELINE (acute kidney injury) N17.9 ARDS (adult respiratory distress syndrome) J80
--- NOTE | 2019-12-24 12:18 | Neurology Consultation ---
Date of Consultation December 24, 2019 Assessment & Plan (1) ARDS (adult respiratory distress syndrome): (2) Acute renal failure (ARF): (3) Suspected 2019 novel coronavirus infection: (4) Afib: (5) Acute hypoxemic respiratory failure: (6) AMS (altered mental status): Gideon Hinkle is a 64 yo man w/ PMH of HTN, HLD, COPD, tobacco abuse, morbid obesity, DM, and gout who p/t [facility] on 12/05/19 with SOB, fever, cough, generalized weakness and confusion, found to be profoundly hypoxemic, in ARF and diagnosed with suspected COVID 19. # AMS: likely multifactorial in the setting of hypoxic respiratory failure requiring prolonged intubation and sedation, acute renal failure requiring dialysis with multiple electrolyte abnormalities and uremia, and likely underlying infection that triggered initial hospitalization (clinically still fits the picture of COVID-19). There is also high likelihood of delayed clearance of versed/fentanyl in the setting of renal failure on HD and newly rising LFTs. - continue to provide supportive care as already doing to see if mental status improves as electrolytes are corrected and medications cleared - would obtain MRI brain without contrast and with GRE (or SWI) sequence to r/o any stroke in the setting of new onset Afib this admission or any signs c/w neurological complications of suspected COVID (strokes and microhemorrhages have been reported; https://pubs.rsna.org/doi/10.1148/radiol.6919246555) - depending on results of MRI, may recommend EEG # Generalized weakness: likely multifactorial given his prolonged ICU course c/b intubation, sedation, proning and course of high dose steroids, as well as deconditioning. He is at high risk of critical illness myopathy and/or neuropathy. There have also been case reports of GBS resulting from COVID 19 (https://www.theGet.com.com/journals/everardo/seamus pedro/[email or web address])[email or web address]/fulltext). - would re-check CK level to help r/o CIM - depending on results of MRI, could consider LP to r/o possible GBS - will need an EMG at some point, however, this will be difficult to arrange while he is hospitalized - when more alert, recommend PT evaluation Thank you for this interesting consult. Plan of care discussed with primary team. Please text or call with any questions. History of Present Illness Attending Physician: Cash Garcia History of Present Illness Gideon Hinkle is a 64 yo man w/ PMH of HTN, HLD, COPD, tobacco abuse, morbid obesity, DM, and gout who p/t [facility] on 12/05/19 with SOB, fever, cough, generalized weakness and confusion, found to be profoundly hypoxemic, in ARF and diagnosed with suspected COVID 19. Neurology consulted given prolonged AMS following sedation wean and lack of movement in his extremities. Per review of notes, he was initially confused during presentation in the ED but still not moving all extremities per report. His initial ABG was 7.49/29/67/. CXR showed patchy bibasilar infiltrates with borderline cardiomegaly. Initial labs were notable for WBC 10.37, hemoglobin 13.5, platelets 330, INR 1.0, d- dimer 2280, sodium 130, potassium 3.3, chloride 95, BUN 56, creatinine 2.69 (no history of CKD), glucose 261, mildly elevated AST of 93 with normal ALT 49, troponin 0.037, negative bio fire panel including flu a and flu B. Blood and urine cultures were negative. COVID testing from 12/04 and 12/07 were both negative. He was started on BiPAP with improvement noted in his mental status and was intubated after arrival to the ICU. He was heavily sedated, prolonged, started on broad-spectrum antibiotics (linezolid, doxycycline, cefepime). He had a TDC placed on 12/08/2019 for HD given acute renal failure, hyponatremia, and worsening mixed respiratory metabolic acidosis. He had a sedation holiday on 12/14/2019 and was noted to have nonpurposeful movement but did not follow commands; given difficulty with overbreathing the vent, he was restarted on low- dose Versed and fentanyl. In reviewing the medication record with nursing, he was noted to have no further Versed or fentanyl since December 18 and propofol has been held since December 20. He was noted to be in A. fib with RVR on 12/17-12/18; was given IV metoprolol without response before transitioning to amiodarone. He was also placed on subQ heparin given high risk of anticoagulation at that time. He started wean off high-dose steroids and antibiotics on 12/21. On review of lab work today, patient still has leukocytosis with WBC 19.8 (could be steroid-induced), hemoglobin 11.5, platelets 395, sodium 135, potassium 3.3, chloride 102, BUN 91 (range has been 74-147), creatinine 2.67, glucose 207 (range 1 28-4 78), calcium low at 8.1, phosphorus elevated at 5.9, LFTs mildly elevated (AST 89, ALT 184, alkaline phosphatase 196), magnesium within normal. Previous pertinent work-up includes negative AAKASH, negative ANCA screen, normal C3 with mildly elevated C4 (60). He last had a urinalysis on December 07 that was n egative for infection. Initial urine and blood cultures were negative. There is ongoing concern of COVID infection despite having negative testing x3. Allergies Allergy/AdvReac Type Severity Reaction Status Date / Time egg Allergy Unknown Unknown Verified 12/17/19 18:57 Home Medications Home Medications Medication Instructions Recorded Confirmed Type amlodipine 10 mg tablet 10 mg PO DAILY #90 tab 04/17/19 12/05/19 History glimepiride 4 mg tablet 8 mg PO DAILY #180 tab 04/17/19 12/05/19 History lisinopril 20 2 tab PO DAILY #180 tab 04/17/19 12/05/19 History mg-hydrochlorothiazide 12.5 mg tablet atorvastatin 40 mg tablet 40 mg PO DAILY #90 tab 05/08/19 12/05/19 Rx insulin syringe-needle U-100 1 mL #100 ea 06/05/19 08/22/19 Rx 30 gauge x 1/2" linagliptin 5 mg tablet 5 mg PO DAILY #90 tab 06/05/19 12/05/19 Rx metformin 1,000 mg tablet 1,000 mg PO UD #180 tab 08/20/19 12/05/19 History insulin glargine 100 unit/mL 54 units SUBCUT QPM #5 vial 09/09/19 12/05/19 Rx subcutaneous solution Patient History Medical History Acute hypoxemic respiratory failure Chronic obstructive pulmonary disease (Acute) Current smoker (Acute) Diabetes mellitus type II, uncontrolled (Chronic) Dysplastic nevus Gastroesophageal reflux disease (Acute) Gout (Acute) Hyperlipidemia (Chronic) Hypertension (Chronic) Metabolic encephalopathy Obstructive sleep apnea (Chronic) Sebaceous cyst Surgical History No pertinent past surgical history Family History Mother Diabetes Father Cancer Lung cancer age 53 Aunt Colorectal cancer Denies family history of Ovarian cancer Prostate cancer Myocardial infarction Breast cancer Social History Preferred Language: Danish Communication Ability: Unable Visual Impairment: No Limitations Hearing Ability: Normal Thai Masseur Required: No Beliefs That Will Affect Care: None marital status: Current Living Situation: Spouse Current Living Situation Comment: lives with ; no kids current occupational status: employed 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; HV[employer] Feels Safe at Home: Yes Smoking Status: Current every day smoker Tobacco Type: cigarettes ; Cigarettes Per Day: does not know, recently none ; Second Hand Exposure: No ; Hx Alcohol Use: Yes Hx Substance Use: No Childhood Exposure to Second-Hand Smoke: Yes Dental Care, Regularly: Yes Physical Activity Frequency: Does not Exercise Seatbelt Use: sometimes Sunscreen Use: No Review of Systems Review of Systems: Unobtainable due to endotracheal tube and Unobtainable due to reduced consciousness Exam (Neuro) Physical Exam: (exam performed with the help of the ICU nurse as pt has been on COVID precautions) General Exam: GEN: intubated, off sedation, lying in bed CV: RRR on monitor PULM: intubated Neuro Exam: MS: Eyes to voice. Will also look around room without prompting. No clear tracking at this time. Unable to answer orientation questions or evaluate speech (intubated). Does not follow commands. CN: +blink to threat. EOMI in horizontal plane. Face symmetric around ETT. +cough/gag/corneals MOTOR: No spontaneous movement observed aside from turning head side to side. Flaccid tone. REFLEXES: deferred SENSORY: Grimaces to noxious stimuli in BLEs and LUE. COORDINATION: unable to assess 2/2 mental status GAIT: deferred, intubated Results & Data ([facility]) Vital Signs (Past 12 Hours) Vital Signs Temp Pulse Pulse Resp BP Pulse Ox 12/24/19 12:00 92 H 128/78 12/24/19 11:40 97 H 167/76 H 12/24/19 11:20 89 138/76 12/24/19 11:00 88 141/74 H 12/24/19 10:40 88 165/80 H 12/24/19 10:18 79 172/76 H 12/24/19 10:15 36.9 C 89 12/24/19 07:21 79 25 H 93 12/24/19 06:00 73 92 12/24/19 05:44 73 161/79 H 97 12/24/19 05:30 73 97 12/24/19 05:00 74 97 12/24/19 04:44 73 148/81 H 97 12/24/19 04:34 80 37 H 95 12/24/19 04:30 83 96 12/24/19 04:00 80 96 12/24/19 03:44 79 166/89 H 94 12/24/19 03:00 79 96 12/24/19 02:44 75 136/71 96 12/24/19 02:30 78 95 12/24/19 02:00 76 92 12/24/19 01:00 75 95 12/24/19 00:44 75 143/76 H 95 PG Care Time/CCT Total # of Minutes Spent Total Time Spent with Patient: 60 minutes of critical care time was spent with patient, discussing plan with primary team and . Coding Level of Care Code 09920 Inpt Consult Level 5 Diagnoses ARDS (adult respiratory distress syndrome) J80 Acute renal failure (ARF) N17.9 Acute renal failure type: unspecified Suspected 2019 novel coronavirus infection R68.89 Afib I48.91 Acute hypoxemic respiratory failure J96.01 AMS (altered mental status) R41.82 (1) Acute renal failure (ARF) Acute renal failure type: unspecified Qualified Code(s): N17.9 - Acute kidney failure, unspecified
--- NOTE | 2019-12-24 15:29 | Pharmacy Report ---
Pharmacy Glycemic Short Note 2 - Date of Service December 24, 2019 - Glycemic Short BSG Results (Last 24 hours): 12/23/19 12/23/19 12/23/19 17:06 19:28 23:21 Glucose POC Glucose 164 H 208 H 216 H 12/24/19 12/24/19 12/24/19 04:04 04:09 08:52 Glucose 207 H POC Glucose 211 H 156 H 12/24/19 13:01 Glucose POC Glucose 154 H OUTPATIENT ANTIDIABETIC REGIMEN: Per med rec: * Lantus 54 units SQ qPM * Glimepiride, linagliptin, and metformin * A1c = 9.4% 12/06/19 ASSESSMENT: 12/23: * Received 164 units of insulin yesterday. * 80 units of basal * 84 units of bolus * Patient remains intubated this AM * Steroid dosage decreased Solu-Medrol 20mg daily --> 10mg daily * Uncertain of basal insulin needs as pt not fasting due to continuous tube feeds. Current basal dose reasonable to continue at this time given severity of illness and insulin requirement in last 24 hrs * Tube feeds continue with Novosource Renal at 30ml/hr * BSGs did climb yesterday despite increase in prandial insulin dosage - will increase this dose slightly again today * Pt again to have dialysis today - may become more insulin sensitive following treatments PLAN FOR INPATIENT GLYCEMIC CONTROL: * Continue to hold outpatient oral diabetes medications (metformin, linagliptin) * Basal: no change * Lantus BID per the following scale: * 25 units for BSG < 140 mg/dL * 35 units for BSG 140-180 mg/dL * 45 units for BSG 181 or above * Bolus insulin: increase in prandial dose * NovoLog per scale q4h * Goal Range: Low 110 mg/dL - High 140 mg/dL * Correction Factor: 10 mg/dL/unit * Nutritional / Prandial insulin-- carb ratio of 1 unit per 3 grams CHO consumed PLAN FOR DISCHARGE: * pending
--- NOTE | 2019-12-24 21:52 | Hospitalist Progress Note ---
Date of Service December 24, 2019 Assessment & Plan (1) Acute respiratory failure with hypoxia: B/l pneumonia on chest x-ray. Clinical picture highly concerning for COVID-19, although two nasopharyngeal tests have come back negative for COVID-19 ([facility] on 12/04; [facility] on 12/07). No plans for further testing as this would not change treatment or prognosis at this time. - Continues with hemodialysis to remove volume and help correct acidosis, treat azotemia -> New central line placed on 12/18. - Stopped abx per ICU team. - Continues on vent -> Adjustments per ICU team. (2) Afib: Went into afib with RVR on 12/16. Required cardioversion when he became hypotensive, but back into it. - Converted to sinus rhythm on 12/19. No further episodes as of 12/20. - Now on metoprolol tartrate 50 mg NG Q8h & amiodarone 200 mg NG BID (3) ARDS (adult respiratory distress syndrome): As above, unclear etiology, COVID testing was negative from both [facility] and [facility]. - Started trial of IV steroids on 12/10 - continue to taper per pulmonary/ICU (4) Suspected 2019 novel coronavirus infection: See above in "acute hypoxic resp failure." - Biofire negative x 2 - Flu negative - COVID-19 negative on 12/27 from [facility] and on [facility] COVID test on 12/07. - Third COVID 19 test was negative on 12/24; will remove from airbone and contact precaution. (5) Sepsis: Secondary to pneumonia. - Continue supportive care (6) Acute renal failure (ARF): Secondary to dehydration/sepsis/ATN. - Now on HD - Continue to hold MIKAEL and HCTZ - Appreciate nephrology consultation for hemodialysis management of renal failure -> HD running today. (7) Hypertension: Was hypotensive on 12/19 with afib with RVR, but now on 12/20, his BP is up. - On beta-kristian as above for rate-control and hydralazine 50 mg NG QID per ICU team. (8) Chronic obstructive pulmonary disease: By history, but not on inhalers at home. (9) Current smoker: 50+ years of smoking per patient. (10) Gastroesophageal reflux disease: Pepcid IV daily (11) Gout: No recent issues. Not on prophylaxis. (12) Diabetes mellitus type II, uncontrolled: Hyperglycemic ICU protocol, hyperglycemia worsened with starting IV steroids-pharmacy has intensified the insulin regimen and steroids are being tapered down-glucose is now improved. - Defer to pharmacy - Now on basal-bolus on 12/18 -> Sugars doing better.. (13) DVT prophylaxis: Heparin 5,000 units SQ Q8h D/W bulk folder. Admission and Anticipated Discharge Date Admission Date: December 05, 2019 Subjective Patient is intubated. Review of Systems Review of Systems: Unobtainable due to endotracheal tube Physical Exam Physical Exam: Constitutional: WD/WN, vitals as above + lethargic ENMT: external ear and nose normal, oropharynx normal (Intubated) Respiratory: normal rate. Cardiovascular: Rate/Rhythm: regular rate and regular rhythm Gastrointestinal (Abdomen): Inspection/Auscultation: abdomen normal to inspection; abdomen not distended Neurologic: + obtunded; + not awake Psychiatric: Orientation: + not alert Results & Data Results & Data ([facility]) Vital Signs (Past 12 Hours) Vital Signs Temp Pulse Pulse Resp BP BP Pulse Ox 12/24/19 21:00 36.6 C 77 32 H 148/88 H 93 12/24/19 20:35 80 23 92 12/24/19 19:30 36.6 C 82 93 12/24/19 19:06 81 128/78 91 12/24/19 19:00 82 91 12/24/19 18:04 76 26 H 94 12/24/19 15:45 80 29 H 92 12/24/19 14:49 36.7 C 74 135/76 12/24/19 14:29 74 135/76 12/24/19 14:20 88 119/69 12/24/19 14:00 89 125/76 12/24/19 13:49 83 25 H 97 12/24/19 13:40 84 127/79 12/24/19 13:20 91 H 128/78 12/24/19 13:00 96 H 134/62 12/24/19 12:40 92 H 146/76 H 12/24/19 12:20 91 H 145/76 H 12/24/19 12:00 92 H 128/78 12/24/19 11:40 97 H 167/76 H 12/24/19 11:20 89 138/76 12/24/19 11:00 88 141/74 H 12/24/19 10:40 88 165/80 H 12/24/19 10:18 79 172/76 H 12/24/19 10:15 36.9 C 89 PG Care Time/CCT Total # of Minutes Spent Total Time Spent with Patient: Total time spent is greater than 50% in coordination of care (as documented) at patient's floor/unit and/or counseling patient: Coding Level of Care Code 01216 Subseq Hosp Care Lvl 3 Diagnoses Acute respiratory failure with hypoxia J96.01 Afib I48.91 ARDS (adult respiratory distress syndrome) J80 Suspected 2019 novel coronavirus infection R68.89 Sepsis A41.9 Acute renal failure (ARF) N17.9 Acute renal failure type: unspecified Hypertension I10 Chronic obstructive pulmonary disease J44.9 Current smoker F17.200 Gastroesophageal reflux disease K21.9 Gout M10.9 Diabetes mellitus type II, uncontrolled E11.65 DVT prophylaxis Z29.9 Time Spent (min) 35 (1) Acute renal failure (ARF) Acute renal failure type: unspecified Qualified Code(s): N17.9 - Acute kidney failure, unspecified
[2019-12-25] MEDS: TUBE FEEDING WATER FLUSH NG SCH ×3 (00:35→15:50)
[2019-12-25] MEDS: CALCIUM CARBONATE 1,250 MG/5 ML UDC NG SCH ×3 (00:35→15:50)
[2019-12-25] MEDS: HydrALAZINE TAB 50 MG TAB GT SCH ×4 (00:35→18:13)
[2019-12-25] MEDS: INSULIN ASPART 100 UNITS/ML 3 ML PEN SQ SCH ×6 (00:36→20:32)
[2019-12-25] MEDS: HEPARIN SOD 5,000 UNIT/0.5 ML VIAL SQ SCH ×3 (04:13→20:33)
[2019-12-25] MEDS: METOPROLOL TARTRATE 50 MG TAB PO SCH ×3 (04:14→20:34)
[2019-12-25 04:59] LABS: Basophils # (auto) 0.02 K/uL (0-0.2); Basophils % (auto) 0.1 %; Eosinophils # (auto) 0.25 K/uL (0-0.5); Eosinophils % (auto) 1.2 %; Hematocrit (blood only) 36.3 % (42-52); Hemoglobin 11.8 g/dL (14.0-18.0); Immature Granulocytes # (auto) 0.26 K/uL (0.00-0.02); Immature Granulocytes % (auto) 1.2 %; Lymphocytes # (auto) 2.08 K/uL (1.2-3.4); Lymphocytes % (auto) 9.6 %; Mean Corpuscular Hgb Conc 32.5 g/dL (32-36); Mean Corpuscular Volume 92.4 fL (80-100); Mean Platelet Volume 10.3 fL (7.4-10.4); Monocytes # (auto) 0.49 K/uL (0.11-0.59); Monocytes % (auto) 2.3 %; Neutrophils # (auto) 18.51 K/uL (1.4-6.5); Neutrophils % (auto) 85.6 %; Platelet Count 421 K/uL (130-400); RDW Coefficient of Variation 15.8 % (11.5-14.5); RDW Standard Deviation 52.1 fL (36.4-46.3); Red Blood Count 3.93 M/uL (4.7-6.1); White Blood Count 21.61 K/uL (4.8-10.8)
[2019-12-25 05:28] LABS: BUN Creatinine Ratio 33.3 (10-20); Calcium 8.5 mg/dl (8.5-10.1); Creatinine Clr Calc Pharmacy 32.9 ml/min; Est GFR (Non-African American) 25.9; Magnesium 2.2 mg/dl (1.8-2.4); Phosphorus 5.1 mg/dl (2.5-4.9); Potassium 3.8 mmol/L (3.5-5.1)
[2019-12-25] MEDS ORDERED: SODIUM CHLORIDE 0.9% 1000ML 1,000 ML IV PRN (07:00)
--- NOTE | 2019-12-25 07:06 | Magnetic Resonance Report ---
MR brain wo con CLINICAL HISTORY: 64 years-old Male presenting with fever, confusion, ventilated. TECHNIQUE: Multisequence, multiplanar MR imaging of the brain was performed without the use of intrav enous contrast. IV contrast: None. COMPARISON: None. FINDINGS: Localizer images: Unremarkable. Bone marrow signal intensity within the calvarium within normal limits. Normal midline sagittal structures. Proportional ventricular and sulcal prominence, likely age-relate d parenchymal volume loss. No mass effect or midline shift. Small foci of diffusion hyperintensity wi th correlative low signal on ADC consistent with acute lacunar infarcts. These 3 foci are located in the periventricular white matter of the posterior right temporal lobe, right frontal temporal region and left frontal lobe. There is associated T2/FLAIR hyperintensity suggesting infarcts at least 6 to 12 hours old. No associated susceptibility artifact. Old lacunar infarct in the right cerebellar milad sphere. Periventricular and subcortical white matter T2/FLAIR hyperintensity, nonspecific but likely indicative of chronic small vessel ischemic change. No extra-axial fluid collection. T2 skull base flow voids preserved. Fluid in the bilateral mastoid a ir cells. Subcutaneous cyst in the right postauricular region, possibly epidermal inclusion cyst. IMPRESSION: 1. Acute lacunar infarcts in the periventricular white matter. 2. Chronic small vessel ischemic change. 3. No hemorrhage. These findings were discussed with physician surgical services assistant Silver by Dr. Meeks on 12/25/2019 00:27 AM. ACT 112: Negative or not required by law. Electronically signed by: Yfn Stallings M.D. 12/25/2019 7:05 AM
[2019-12-25] MEDS: PROSOURCE NO CARB 30 ML/PKT OG SCH ×4 (07:49→20:35)
[2019-12-25] MEDS: methylPREDNISolone 10 MG in SYRINGE 0 ML IV SCH (07:49)
[2019-12-25] MEDS: AMIODARONE 200 MG TAB PO SCH ×2 (07:50→20:34)
[2019-12-25] MEDS: MULTI VIT W/MINERALS LIQUID 15 ML UDP PO SCH (07:50)
[2019-12-25] MEDS: FAMOTIDINE 20 MG in SYRINGE 3 ML IV SCH (08:12)
[2019-12-25] MEDS: INSULIN GLARGINE SOLOSTAR 100 UNITS/ML 3 ML PEN SC SCH ×2 (08:15→20:31)
--- NOTE | 2019-12-25 10:20 | Critical Care Progress Note ---
Date of Service December 25, 2019 Assessment & Plan (1) ARDS (adult respiratory distress syndrome): Patient has a very prolonged ICU stay with prolonged mechanical ventilation. 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 Repeat CK was negative. MRI of the brain demonstrates multifocal areas of lacunar infarcts. Discussed with cardiology regarding possible ALEX given the multiple areas of infarct. We will also discuss with neurology to see if they think this is either related to vascular lesions, embolic phenomenon or other etiology. Will defer to neurology with regards to obtaining an EEG. He would likely benefit from an EMG to help determine whether this is truly critical illness myopathy versus polyneuropathy or another etiology, but unfortunately due to the COVID pandemic circumstances this would not be possible. BUN has improved to 83 today. We are performing another dialysis session today. He was quite tachypneic on pressure support and I am trying him on SIMV with pressure support today. Additionally, we are weaning off the steroids. Tube feeds on hold for possible ALEX. Continue DVT and GI prophylaxis. Repeat COVID-19 test yesterday was negative. I think it is unlikely that this patient has COVID. We will recheck his LFTs today, if continued increase in LFTs again, then I will order for right upper quadrant ultrasound. His prognosis is extremely poor in the long run and we are essentially at a point where a decision will need to be made with regards to either proceeding with a tracheostomy or moving towards a compassionate extubation. We have been continuous talks with the patient's who is going to come in today for a very brief visit 15 minutes. CRITICAL CARE TIME - I have personally spent 30 minutes of critical care time in the direct m anagement of this patient. This is a life/limb threatening event. This includes time spent evaluating patient, direct bedside care, chart review, placing orders, interpretation of diagnostic studies, discussion with consultants, patient, and family members, as well as other required patient management activities. This time is exclusive of all separately billable procedures, and teaching time and separate from and in addition to any other critical care service time. (2) JACQUELINE (acute kidney injury): (3) Sepsis: (4) Metabolic encephalopathy: (5) Acute respiratory failure with hypoxia: (6) Diabetes mellitus type II, uncontrolled: (7) Acute hypoxemic respiratory failure: Admission and Anticipated Discharge Date Admission Date: December 05, 2019 Subjective Patient seen and examined today. He continues to have intermittent eye tracking movements. Still requiring ventilatory support and often tachypneic to a rate of 30. Continues to be off all pressors and sedation. MRI of the brain performed overnight. No acute events overnight. Physical Exam Constitutional: + mechanically ventilated and + overweight Eyes: PERRL Neck: trachea midline, no thyromegaly Cardiovascular: Rate/Rhythm: regular rate; not tachycardic Heart Sounds: normal S1 and normal S2; no murmur Extremities: + edema Gastrointestinal (Abdomen): normal bowel sounds, soft, nontender, no hepatosplenomegaly Musculoskeletal: no cyanosis or clubbing, extremities motor strength 5/5 Skin: no rashes, warm and dry Neurologic: Flaccid paralysis. Tracking with his eyes occasionally. Results & Data Results & Data ([facility]) Vital Signs (Past 12 Hours) Vital Signs Temp Pulse Pulse Resp BP BP Pulse Ox 12/25/19 09:14 16 12/25/19 09:00 97 H 96 12/25/19 08:30 95 H 94 12/25/19 08:21 98.2 F 95 H 114/65 91 12/25/19 08:00 96 H 12/25/19 07:21 92 H 116/68 95 12/25/19 07:04 96 H 28 H 95 12/25/19 06:12 97.9 F 89 22 127/74 94 12/25/19 06:00 89 93 12/25/19 05:21 89 127/74 92 12/25/19 05:00 89 95 12/25/19 04:45 76 21 94 12/25/19 04:21 84 109/74 96 12/25/19 04:00 85 94 12/25/19 03:21 78 123/75 94 12/25/19 03:00 97.9 F 77 28 H 123/75 95 12/25/19 02:21 76 116/75 91 12/25/19 02:00 73 90 12/25/19 01:21 70 94/62 L 95 12/25/19 01:00 98.2 F 71 22 94/62 L 88 L 12/25/19 00:21 76 116/76 90 12/25/19 00:20 90 12/24/19 23:06 74 140/84 94 12/24/19 23:00 74 94 12/24/19 22:36 72 114/62 91 Coding Level of Care Code Critical Care 1st 30-74 mins Diagnoses ARDS (adult respiratory distress syndrome) J80 JACQUELINE (acute kidney injury) N17.9 Sepsis A41.9 Metabolic encephalopathy G93.41 Acute respiratory failure with hypoxia J96.01 Diabetes mellitus type II, uncontrolled E11.65 Acute hypoxemic respiratory failure J96.01 Time Spent (min) 30
[2019-12-25 10:59] LABS: Albumin Level 1.9 gm/dl (3.4-5.0); Bilirubin Direct 0.2 mg/dl (0-0.2); Bilirubin,Total 0.6 mg/dl (0.2-1); Total Protein 6.5 gm/dl (6.4-8.2)
--- NOTE | 2019-12-25 11:10 | Nephrology Progress Note ---
Date of Service December 25, 2019 Assessment & Plan (1) JACQUELINE (acute kidney injury): 64-year-old gentlemen admitted with acute respiratory failure, ARDS, remained intubated since 12/05/19. Flu, bio fire and COVID-19 x 3 were negative and off of isolation starting 12/24/19. Developed JACQUELINE and has been on dialysis via temporary dialysis catheter, over last 2 days there has been some sign of renal recovery, started to make urine, made 500 mL over last 24 hour. Had dialysis yesterday. Today blood pressure electrolyte acceptable. Has been on Lasix 40 milligram IV twice a day. CPAP trial was done yesterday however patient remains intubated today as has been minimally responsive off sedation. No sign of renal recovery although has been having decent urine output, blood pressure well controlled. New finding of acute lacunar infarct on MRI. Plan for ALEX this afternoon considering AFib. --hemodialysis today. --plan for discussion with family this afternoon regarding goals of care, if patient's decide to be aggressive with care and do tracheostomy and dialysis, will schedule for tunneled dialysis catheter --continue liquid phosphate binder with feeding will follow (2) ARDS (adult respiratory distress syndrome): (3) Hypertension: (4) Diabetes mellitus type II, uncontrolled: (5) Hypokalemia: (2) ARDS (adult respiratory distress syndrome): -- Biofire and COVID testing negative. Etiology of ARDS unclear. Patient remains on droplet precautions. Sedatives have been lifted and ICU team is attempting to wean patient from ventilator -- Steroid therapy is being tapered. FiO2 reduced to 30% with PEEP 5 Admission and Anticipated Discharge Date Admission Date: December 05, 2019 Subjective Mr. Hinkle remains intubated today, off sedation, still minimally responsive buts opens eyes, but does not follow commands. Blood pressure well controlled, decent urine output. BUN/Cr better after dialysis yesterday. Had MRI yesterday, found to have acute lacunar infarct. Review of Systems Review of Systems: Unobtainable due to cognitive status and Unobtainable due to endotracheal tube Physical Exam Constitutional: + ill appearing Respiratory: Auscultation: + diminished lung sounds Cardiovascular: Rate/Rhythm: + irregularly irregular Heart Sounds: normal S1 and normal S2 Neurologic: Intubated, off sedation however still minimally responsive. Results & Data ([facility]) Vital Signs (Past 12 Hours) Vital Signs Temp Pulse Pulse Resp BP BP Pulse Ox 12/25/19 10:45 103 H 126/70 12/25/19 10:30 103 H 108/73 12/25/19 10:15 85 131/70 12/25/19 10:00 90 121/68 12/25/19 09:45 36.7 C 89 12/25/19 09:14 16 12/25/19 09:00 97 H 96 12/25/19 08:30 95 H 94 12/25/19 08:21 36.8 C 95 H 114/65 91 12/25/19 08:00 96 H 12/25/19 07:21 92 H 116/68 95 12/25/19 07:04 96 H 28 H 95 12/25/19 06:12 36.6 C 89 22 127/74 94 12/25/19 06:00 89 93 12/25/19 05:21 89 127/74 92 12/25/19 05:00 89 95 12/25/19 04:45 76 21 94 12/25/19 04:21 84 109/74 96 12/25/19 04:00 85 94 12/25/19 03:21 78 123/75 94 12/25/19 03:00 36.6 C 77 28 H 123/75 95 12/25/19 02:21 76 116/75 91 12/25/19 02:00 73 90 12/25/19 01:21 70 94/62 L 95 12/25/19 01:00 36.8 C 71 22 94/62 L 88 L 12/25/19 00:21 76 116/76 90 12/25/19 00:20 90 12/24/19 23:06 74 140/84 94 PG Care Time/CCT Total # of Minutes Spent Total Time Spent with Patient: Total time spent is greater than 50% in coordination of care (as documented) at patient's floor/unit and/or counseling patient: Coding Level of Care Code 56262 Subseq Hosp Care Lvl 3 Diagnoses JACQUELINE (acute kidney injury) N17.9 ARDS (adult respiratory distress syndrome) J80
--- NOTE | 2019-12-25 11:38 | Pharmacy Report ---
Pharmacy Glycemic Short Note 2 - Date of Service December 25, 2019 - Glycemic Short BSG Results (Last 24 hours): 12/24/19 12/24/19 12/24/19 13:01 16:27 19:56 Glucose POC Glucose 154 H 160 H 162 H 12/25/19 12/25/19 12/25/19 00:34 04:03 04:12 Glucose 135 H POC Glucose 182 H 134 H 12/25/19 08:14 Glucose POC Glucose 129 H OUTPATIENT ANTIDIABETIC REGIMEN: Per med rec: * Lantus 54 units SQ qPM * Glimepiride, linagliptin, and metformin * A1c = 9.4% 12/06/19 ASSESSMENT: 12/24: * Received 135 units of insulin yesterday. * 70 units of basal * 65 units of bolus * BSGs well controlled over last 24 hrs - likely due to ongoing dialysis and lowered dose of steroid * Patient remains intubated * Solu-medrol 10mg IV x 1 this AM then steroid course will d/c * Tube feeds Novosource Renal at 30ml/hr being held for 6-8 hours today. * Given improving insulin sensitivity and d/c of IV steroids, will empirically reduce doses of basal and prandial insulin going forward to prevent hypo glycemia PLAN FOR INPATIENT GLYCEMIC CONTROL: * Continue to hold outpatient oral diabetes medications (metformin, linagliptin) * Basal: decrease 20% * Lantus BID per the following scale: * 20 units for BSG < 140 mg/dL * 25 units for BSG 140-180 mg/dL * 35 units for BSG 181 or above * Bolus insulin: decrease in prandial dose * NovoLog per scale q4h * Goal Range: Low 110 mg/dL - High 140 mg/dL * Correction Factor: 12 mg/dL/unit * Nutritional / Prandial insulin: carb ratio of 1 unit per 4 grams CHO c onsumed PLAN FOR DISCHARGE: * pending
--- NOTE | 2019-12-25 12:45 | XRay Report ---
XR chest 1V portable CLINICAL HISTORY: 64 years-old Male presenting with intubated. check on lines and tubes. TECHNIQUE: Portable upright AP view of the chest was obtained. COMPARISON: 12/23/2019. FINDINGS: Endotracheal tube terminates in the midthoracic trachea approximately 4 cm from the isra. The left subclavian central venous catheter terminates at the brachiocephalic confluence/upper SVC. Large bore right internal jugular central venous catheter terminates in the mid SVC. Nasogastric tube descends below the diaphragm terminating in the body of the stomach, side hole likely also within the gastric lumen. Numerous external leads project over the thorax to grating evaluation. Atherosclerosis of the aortic arch. Cardiac silhouette mildly enlarged. Pulmonary vascular and inters titial prominence. Persistent peripheral and basilar predominant patchy opacities. Low lung volumes u nchanged from prior. Small pleural effusions not excluded. No large pneumothorax. Degenerative change s of the thoracic spine. Upper abdomen normal. IMPRESSION: 1. Lines and tubes appropriately positioned. 2. Persistent peripheral and basilar predominant infiltrates, unchanged. 3. Some degree of volume overload and congestion is present. This may be slightly worsened from prio r. ACT 112: Negative or not required by law. Electronically signed by: Yfn Stallings M.D. 12/25/2019 12:43 PM
[2019-12-25] MEDS ORDERED: CANNULA ONE (13:19)
[2019-12-25 14:08] VITALS: TEMP 98.2
--- NOTE | 2019-12-25 17:22 | Neurology Progress Note ---
Date of Service December 25, 2019 Assessment & Plan (1) ARDS (adult respiratory distress syndrome): (2) Acute renal failure (ARF): (3) Suspected 2019 novel coronavirus infection: (4) Afib: (5) Acute hypoxemic respiratory failure: (6) AMS (altered mental status): Gideon Hinkle is a 64 yo man w/ PMH of HTN, HLD, COPD, tobacco abuse, morbid obesity, DM, and gout who p/t [facility] on 12/05/19 with SOB, fever, cough, generalized weakness and confusion, found to be profoundly hypoxemic, in ARF and diagnosed with suspected COVID 19. # AMS: likely multifactorial in the setting of hypoxic respiratory failure requiring prolonged intubation and sedation, acute renal failure requiring dialysis with multiple electrolyte abnormalities and uremia, and likely underlying infection that triggered initial hospitalization (clinically still fits the picture of COVID-19 despite negative testing). There is also high likelihood of delayed clearance of versed/fentanyl in the setting of renal failure on HD and newly rising LFTs. MRI brain shows 3 subacute infarcts likely 2/2 cardioembolic source when he was in Afib this admission. ALEX did not show any LV thrombus or ongoing cardiac source of strokes. A1c 9.4. These small strokes do not explain his overall mental status and exam remains out of proportion likely given above reasons. - continue to provide supportive care as already doing to see if mental status improves as electrolytes are corrected and medications cleared - current presentation would likely take weeks to months to improve at best (worst case outcome would be no improvement with current persistent minimally conscious state) - could consider EEG to r/o NCSE but would likely only show toxic-metabolic encephalopathy # Generalized weakness: likely multifactorial given his prolonged ICU course c/b intubation, sedation, proning and course of high dose steroids, as well as deconditioning. He is at high risk of critical illness myopathy and/or neuropathy. There have also been case reports of GBS resulting from COVID 19 (https: //[email or web address]/fulltext). Repeat CK WNL making CIM unlikely. Given trace reflexes, he could have CIP vs underlying neuropathy from poorly controlled DM. Ddx still includes CIP vs less likely. Could obtain an LP to r/o GBS, however, decubitus ulcer would likely make this difficult to safely perform and would not overall change treatment at this point (supportive care). - if family would like to continue full care, would recommend an outpatient EMG that could be arranged at rehab/[facility] - when more alert, recommend PT evaluation. Thank you for this interesting consult. Plan of care discussed with primary team. Please text or call with any questions. Admission and Anticipated Discharge Date Admission Date: December 05, 2019 Subjective Had MRI brain overnight on 10 independent review shows small subacute infarcts in the right posterior temporal lobe, right frontal and left frontal lobe, mild SVID, and mild generalized atrophy. No hemorrhages or large strokes to explain depressed mental status noted. On examination today, he opens eyes to voice but did not track or follow commands. Labs reviewed and notable for mildly worsening LFTs and CK within normal at 98. Repeat chest x-ray shows persistent basilar infiltrates. Review of Systems Review of Systems: Unobtainable due to endotracheal tube and Unobtainable due to reduced consciousness Results & Data ([facility]) Vital Signs (Past 12 Hours) Vital Signs Temp Pulse Pulse Resp BP BP BP 12/25/19 16:35 75 25 H 12/25/19 14:51 72 23 12/25/19 14:03 76 103/65 12/25/19 14:00 77 12/25/19 13:58 80 105/69 12/25/19 13:48 80 122/72 12/25/19 13:43 83 127/86 12/25/19 13:38 36.8 C 83 118/70 12/25/19 13:20 36.7 C 103 H 122/78 12/25/19 12:45 111 H 110/64 12/25/19 12:30 112 H 129/81 12/25/19 12:15 113 H 98/53 L 12/25/19 12:00 108 H 122/73 12/25/19 11:45 108 H 129/75 12/25/19 11:30 105 H 115/72 12/25/19 11:15 108 H 119/73 12/25/19 11:06 108 H 28 H 12/25/19 11:00 109 H 89/59 L 12/25/19 10:45 103 H 126/70 12/25/19 10:30 103 H 108/73 12/25/19 10:15 85 131/70 12/25/19 10:00 90 121/68 12/25/19 09:45 36.7 C 89 12/25/19 09:14 16 12/25/19 09:00 97 H 12/25/19 08:30 95 H 12/25/19 08:21 36.8 C 95 H 114/65 12/25/19 08:00 96 H 12/25/19 07:21 92 H 116/68 12/25/19 07:04 96 H 28 H 12/25/19 06:12 36.6 C 89 22 127/74 12/25/19 06:00 89 12/25/19 05:21 89 127/74 Pulse Ox 12/25/19 16:35 94 12/25/19 14:51 94 12/25/19 14:03 100 12/25/19 14:00 99 12/25/19 13:58 98 12/25/19 13:48 97 12/25/19 13:43 98 12/25/19 13:38 100 12/25/19 13:20 12/25/19 12:45 12/25/19 12:30 12/25/19 12:15 12/25/19 12:00 12/25/19 11:45 12/25/19 11:30 12/25/19 11:15 12/25/19 11:06 90 12/25/19 11:00 12/25/19 10:45 12/25/19 10:30 12/25/19 10:15 12/25/19 10:00 12/25/19 09:45 12/25/19 09:14 12/25/19 09:00 96 12/25/19 08:30 94 12/25/19 08:21 91 12/25/19 08:00 12/25/19 07:21 95 12/25/19 07:04 95 12/25/19 06:12 94 12/25/19 06:00 93 12/25/19 05:21 92 Exam (Neuro) Physical Exam: General Exam: GEN: intubated, off sedation, lying in bed CV: RRR on monitor PULM: intubated Neuro Exam: MS: Eyes to voice. Will also look around room without prompting. No clear tracking. Unable to answer orientation questions or evaluate speech (intubated). Does not follow commands. CN: +blink to threat. Pupils equal and reactive to light bilaterally. EOMI in horizontal plane. Face symmetric around ETT. +cough/gag MOTOR: No spontaneous movement observed aside from turning head side to side. Flaccid tone. REFLEXES: Trace to absent reflexes throughout. Toes mute bilaterally SENSORY: Grimaces to noxious stimuli in BLEs and LUE. COORDINATION: unable to assess 2/2 mental status GAIT: deferred, intubated PG Care Time/CCT Total # of Minutes Spent Total Time Spent with Patient: Total time spent is greater than 50% in coordination of care (as documented) at patient's floor/unit and/or counseling patient: Coding Level of Care Code 39346 Subseq Obs Care Lvl 3 Diagnoses ARDS (adult respiratory distress syndrome) J80 Acute renal failure (ARF) N17.9 Acute renal failure type: unspecified Suspected 2019 novel coronavirus infection R68.89 Afib I48.91 Acute hypoxemic respiratory failure J96.01 AMS (altered mental status) R41.82 (1) Acute renal failure (ARF) Acute renal failure type: unspecified Qualified Code(s): N17.9 - Acute kidney failure, unspecified
[2019-12-25] MEDS: NOVASOURCE RENAL 2.0 CAL 1000ML BAG OG SCH (18:13)
--- NOTE | 2019-12-25 22:35 | Hospitalist Progress Note ---
Date of Service December 25, 2019 Assessment & Plan (1) Acute respiratory failure with hypoxia: B/l pneumonia on chest x-ray. Clinical picture highly concerning for COVID-19, although two nasopharyngeal tests have come back negative for COVID-19 ([facility] on 12/04; [employer] on 12/07). No plans for further testing as this would not change treatment or prognosis at this time. - Continues with hemodialysis to remove volume and help correct acidosis, treat azotemia -> New central line placed on 12/18. - Stopped abx per ICU team. - Continues on vent -> Adjustments per ICU team. Poor prognosis. (2) Afib: Went into afib with RVR on 12/16. Required cardioversion when he became hypotensive, but back into it. - Converted to sinus rhythm on 12/19. No further episodes as of 12/20. - Now on metoprolol tartrate 50 mg NG Q8h & amiodarone 200 mg NG BID (3) ARDS (adult respiratory distress syndrome): As above, unclear etiology, COVID testing was negative from both [facility] and [facility]. - Started trial of IV steroids on 12/10 - continue to taper per pulmonary/ICU (4) Suspected 2019 novel coronavirus infection: See above in "acute hypoxic resp failure." - Biofire negative x 2 - Flu negative - COVID-19 negative on 12/27 from [facility] and on [facility] COVID test on 12/07. - Third COVID 19 test was negative on 12/24; will remove from airbone and contact precaution. (5) Sepsis: Secondary to pneumonia. - Continue supportive care (6) Acute renal failure (ARF): Secondary to dehydration/sepsis/ATN. - Now on HD - Continue to hold MIKAEL and HCTZ - Appreciate nephrology consultation for hemodialysis management of renal failure -> HD running today. (7) Hypertension: Was hypotensive on 12/19 with afib with RVR, but now on 12/20, his BP is up. - On beta-kristian as above for rate-control and hydralazine 50 mg NG QID per ICU team. (8) Chronic obstructive pulmonary disease: By history, but not on inhalers at home. (9) Current smoker: 50+ years of smoking per patient. (10) Gastroesophageal reflux disease: Pepcid IV daily (11) Gout: No recent issues. Not on prophylaxis. (12) Diabetes mellitus type II, uncontrolled: Hyperglycemic ICU protocol, hyperglycemia worsened with starting IV steroids-pharmacy has intensified the insulin regimen and steroids are being tapered down-glucose is now improved. - Defer to pharmacy - Now on basal-bolus on 12/18 -> Sugars doing better.. (13) DVT prophylaxis: Heparin 5,000 units SQ Q8h D/W server engineer. Admission and Anticipated Discharge Date Admission Date: December 05, 2019 Subjective 64 yo male is intubated. Does not provide history. Review of Systems Review of Systems: Unobtainable due to endotracheal tube Physical Exam Physical Exam: Constitutional: WD/WN, vitals as above, intubated. ENMT: external ear and nose normal, oropharynx normal (Intubated) Respiratory: normal rate. Cardiovascular: Rate/Rhythm: regular rate and regular rhythm Gastrointestinal (Abdomen): Inspection/Auscultation: abdomen normal to inspection; abdomen not distended Neurologic: + not awake Psychiatric: + not alert Results & Data Results & Data ([facility]) Vital Signs (Past 12 Hours) Vital Signs Temp Pulse Pulse Resp BP BP Pulse Ox 12/25/19 19:10 85 24 95 12/25/19 19:00 84 22 123/74 94 12/25/19 18:30 81 94 12/25/19 18:08 81 129/77 94 12/25/19 17:08 77 126/73 93 12/25/19 16:35 75 25 H 94 12/25/19 16:08 36.8 C 71 123/71 93 12/25/19 16:00 75 12/25/19 15:08 72 130/76 92 12/25/19 14:51 72 23 94 12/25/19 14:03 76 103/65 100 12/25/19 14:00 77 99 12/25/19 13:58 80 105/69 98 12/25/19 13:48 80 122/72 97 12/25/19 13:43 83 127/86 98 12/25/19 13:38 36.8 C 83 118/70 100 12/25/19 13:20 36.7 C 103 H 122/78 12/25/19 12:45 111 H 110/64 12/25/19 12:30 112 H 129/81 12/25/19 12:15 113 H 98/53 L 12/25/19 12:00 108 H 122/73 12/25/19 11:45 108 H 129/75 12/25/19 11:30 105 H 115/72 12/25/19 11:15 108 H 119/73 12/25/19 11:06 108 H 28 H 90 12/25/19 11:00 109 H 89/59 L 12/25/19 10:45 103 H 126/70 PG Care Time/CCT Total # of Minutes Spent Total Time Spent with Patient: Total time spent is greater than 50% in coordin ation of care (as documented) at patient's floor/unit and/or counseling patient: Coding Level of Care Code 62181 Subseq Hosp Care Lvl 3 Diagnoses Acute respiratory failure with hypoxia J96.01 Afib I48.91 ARDS (adult respiratory distress syndrome) J80 Suspected 2019 novel coronavirus infection R68.89 Sepsis A41.9 Acute renal failure (ARF) N17.9 Acute renal failure type: unspecified Hypertension I10 Chronic obstructive pulmonary disease J44.9 Current smoker F17.200 Gastroesophageal reflux disease K21.9 Gout M10.9 Diabetes mellitus type II, uncontrolled E11.65 DVT prophylaxis Z29.9 Time Spent (min) 35 (1) Acute renal failure (ARF) Acute renal failure type: unspecified Qualified Code(s): N17.9 - Acute kidney failure, unspecified
--- NOTE | 2019-12-25 23:10 | Communication Note ---
Date of Service: December 25, 2019 2300: Was approached by nursing staff at approximately 11 PM and informed that the patient's requested to make the patient COMFORT MEASURES ONLY at this point. She did report that the only way that she would proceed with terminal extubation was if she was allowed to be present with him during the dying process. Thankfully, Chanell Ferrara of the [facility] department was present in the facility and had spoken with the patient's at length earlier in the evening. After multiple conversations with many parties including [facility], attending hospitalist service, respiratory therapy, nursing staff, and clinical coordinator, it was agreed upon that we would allow the patient's to present to this facility after being appropriately screened and deemed fit via [facility] visitor policy. It was agreed upon that we would proceed with compassionate extubation once the patient's was present at bedside. After this discussion and agreement amongst all parties, I did wish to personally speak with the patient's to discuss wishes moving forward as well as transition to end-of-life care when she arrives this facility. 6567: Reached out to the patient's , Pretty ([phone]). We had an in- depth discussion regarding her wishes for her moving forward. She explains to me that she did visit him today and she recognizes that at this point, he is "not there". She states that after considering all options, that her would not wish to be institutionalized for an extended period of mikal e. She also reports that she understands that there is likely no meaningful recovery at this point and that continued care would likely be going against Shepherd wishes. I did offer support of her decision and explained to her plan of action moving forward. It was agreed upon that she will enter through the emergency department entrance and be escorted back to the ICU. At this point, we would proceed with terminal extubation. Additionally, I did discuss that we would have medications prepared including morphine drip for patient's comfort. Additionally, I did add that in the event that patient does appear to be prolonged demise, we would transfer him out of the unit to comply with current restrictions on ICU visiting policy. At this point, we would transfer him to medical floor where there would be ongoing comfort measures. Pretty is in agreement with everything discussed. She reports that she will arrive at this facility in approximately 20 minutes. Chanell Ferrara kindly offered to escort Pretty back to the ICU. I did reach out to respiratory therapy and they will arrive at bedside to prepare for terminal extubation. Orders were placed with comfort measures with the caveat that they will be instituted after is present at bedside and is prepared for compassionate extubation. 2350: presents to ICU. Had discussion at bedside with Pretty. Explained procedure moving forward including terminal extubation. Patient compassionately extubated at 2355. at bedside. Offered support to family. Will assess need to transfer patient to [facility] floor pending status s/p extubation. 0050: Patient transferred out of ICU 108 to room 324. I have personally spent 45 minutes of critical care time in the direct management of this patient. This is a life/limb threatening event. This includes time spent evaluating patient, direct bedside care, chart review, placing orders, interpretation of diagnostic studies, discussion with consultants, patient, and family members, as well as other required patient management activities. This time is exclusive of all separately billable procedures, and teaching time and separate from and in addition to any other critical care service time. Coding Level of Care Code Critical Care genna addt'l 30 min Time Spent (min) 45
[2019-12-25 23:15] VITALS: O2SAT 92
[2019-12-25] MEDS ORDERED: STAT IV Infusion **Titration per Protocol STA (23:23)
[2019-12-25] MEDS ORDERED: MoRPHine SULF/NSS 250 MG/250 ML BTL IV SCH (23:30)
[2019-12-25] MEDS ORDERED: ONDANSETRON 4 MG OD TAB SL PRN (23:31)
[2019-12-25] MEDS ORDERED: ONDANSETRON INJ 2 MG/ML 2 ML VIAL IV PRN (23:31)
[2019-12-25] MEDS ORDERED: LORazepam 0.5 MG TAB PO PRN (23:31)
[2019-12-25] MEDS ORDERED: ATROPINE SULFATE 1% OP SOLN 2 ML BTL SL PRN (23:31)
[2019-12-25] MEDS ORDERED: LORazepam 0.5 MG/1 ML VIAL IV PRN (23:31)
[2019-12-26] MEDS: CALCIUM CARBONATE 1,250 MG/5 ML UDC NG SCH (02:19)
[2019-12-26] MEDS: HydrALAZINE TAB 50 MG TAB GT SCH (02:19)
[2019-12-26] MEDS ORDERED: FAMOTIDINE 20 MG TAB OG SCH (08:00)
--- NOTE | 2019-12-26 11:48 | XCELERA ---
[id number] \\[id number]
[2019-12-26] MEDS ORDERED: MoRPHine SULFATE 5 MG/0.25 ML UDP PO PRN (15:02)
--- NOTE | 2019-12-26 15:06 | Palliative Care Consultation ---
Date of Consultation December 26, 2019 Assessment & Plan (1) Palliative care encounter: Will briefly summarize the high points of patient's complicated hospital stay. Patient was admitted on 12/04 for increased shortness of breath, dry cough and fever. reports he had a headache for several days prior to onset of symptoms, when he started having worsening symptoms a prolonged conversation with his PCP was required to convince him to come to the hospital. Patient's presenting symptoms and lab work was strongly suspicious for COVID-19 infection. Patient was admitted to the ICU on 12 04-intubated and required prone position. He was profoundly hypoxic with hypercarbia and had acute renal failure that required HD. Patient required pressors and prolonged vent support-he was tested and negative for COVID 193. His viral panel was also negative. Patient's needed to decide between placing a trach or extubating- elected for comfort care with compassionate extubation that was performed last evening. Patient had an MRI that showed multifocal areas of lacunar infarcts, a ALEX that was negative for embolic source. Patient's creatinine on admission was 2.69-peaked at 6.38, patient underwent HD, creatinine yesterday was 2.49 . Urine output had diminished to 550 cc on 12/23 and a 24-hour period, slightly improved yesterday to 635 cc. Patient with elevated LFTs-they continue to rise. Patient's past medical history is significant for poorly controlled diabetes with an A1c of 9.4 on this admission, mild COPD on no inhalers, tobacco use, ASA on CPAP. Of note, patient's has not had any symptoms of COVID-19. Spoke with at length at bedside-states "this all happened too fast for me". 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 Collaborated with attending physician regarding discharge needs. Patient will open his eyes in response to loud voice and stimulation- unfocused gaze, does not attempt to speak. -Goal is to return home with hospice -referral made by case management -Altered mental status-multiple metabolic issues contributing in addition to s evere ARDS -Metabolic encephalopathy-LFTs continue to rise, expect creatinine to also increase off HD -Acute respiratory failure/ARDS-clinical picture of COVID-19, however tested negative x3. Patient intubated on 12/04, extubated on 12/24. -Acute renal failure-require dialysis. Creatinine peaked at 6.38, was 2.49 on 12/24-patient transitioning to comfort care only, no further HD (2) AMS (altered mental status): (3) Metabolic encephalopathy: (4) Acute hypoxemic respiratory failure: (5) ARDS (adult respiratory distress syndrome): (6) JACQUELINE (acute kidney injury): (7) Suspected 2019 novel coronavirus infection: History of Present Illness Reason for Consultation: Provide support to and address goals of care Requesting Physician: Kvng Sheppard PA-C Attending Physician: Cash Garcia History of Present Illness Chart reviewed, patient seen and examined, patient's at bedside. Will briefly summarize the high points of patient's complicated hospital stay. Patient was admitted on 12/04 for increased shortness of breath, dry cough and fever. reports he had a headache for several days prior to onset of symptoms, when he started having worsening symptoms a prolonged conversation with his PCP was required to convince him to come to the hospital. Patient's presenting symptoms and lab work was strongly suspicious for COVID-19 infection. Patient was admitted to the ICU on 12 04-intubated and required prone position. He was profoundly hypoxic with hypercarbia and had acute renal failure that required HD. Patient required pressors and prolonged vent support-he was tested and negative for COVID 193. His viral panel was also negative. Patient's needed to decide between placing a trach or extubating- elected for comfort care with compassionate extubation that was performed last evening. Patient had an MRI that showed multifocal areas of lacunar infarcts, a ALEX that was negative for embolic source. Patient's creatinine on admission was 2.69-peaked at 6.38, patient underwent HD, creatinine yesterday was 2.49 . Urine output had diminished to 550 cc on 12/23 and a 24-hour period, slightly improved yesterday to 635 cc. Patient with elevated LFTs-they continue to rise. Patient's past medical history is significant for poorly controlled diabetes with an A1c of 9.4 on this admission, mild COPD on no inhalers, tobacco use, ASA on CPAP. Of note, patient's has not had any symptoms of COVID-19. Spoke with at length at bedside-states "this all happened too fast for me". 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 Collaborated with attending physician regarding discharge needs. Patient will open his eyes in response to loud voice and stimulation- unfocused gaze, does not attempt to speak. Allergies Allergy/AdvReac Type Severity Reaction Status Date / Time egg Allergy Unknown Unknown Verified 12/17/19 18:57 Home Medications Home Medications Medication Instructions Recorded Confirmed Type amlodipine 10 mg tablet 10 mg PO DAILY #90 tab 04/17/19 12/05/19 History glimepiride 4 mg tablet 8 mg PO DAILY #180 tab 04/17/19 12/05/19 History lisinopril 20 2 tab PO DAILY #180 tab 04/17/19 12/05/19 History mg-hydrochlorothiazide 12.5 mg tablet atorvastatin 40 mg tablet 40 mg PO DAILY #90 tab 05/08/19 12/05/19 Rx insulin syringe-needle U-100 1 mL #100 ea 06/05/19 08/22/19 Rx 30 gauge x 1/2" linagliptin 5 mg tablet 5 mg PO DAILY #90 tab 06/05/19 12/05/19 Rx metformin 1,000 mg tablet 1,000 mg PO UD #180 tab 08/20/19 12/05/19 History insulin glargine 100 unit/mL 54 units SUBCUT QPM #5 vial 09/09/19 12/05/19 Rx subcutaneous solution lorazepam [Ativan] 0.5 mg PO Q2H PRN #10 tab 12/26/19 Rx morphine 5 mg PO Q1H PRN #100 ml 12/26/19 Rx Patient History Medical History Acute hypoxemic respiratory failure Chronic obstructive pulmonary disease (Acute) Current smoker (Acute) Diabetes mellitus type II, uncontrolled (Chronic) Dysplastic nevus Gastroesophageal reflux disease (Acute) Gout (Acute) Hyperlipidemia (Chronic) Hypertension (Chronic) Metabolic encephalopathy Obstructive sleep apnea (Chronic) Sebaceous cyst Surgical History No pertinent past surgical history Family History Mother Diabetes Father Cancer Lung cancer age 53 Aunt Colorectal cancer Denies family history of Ovarian cancer Prostate cancer Myocardial infarction Breast cancer Social History Preferred Language: Portuguese Communication Ability: Unable Visual Impairment: No Limitations Hearing Ability: Normal Environmental Intern Required: No Beliefs That Will Affect Care: None marital status: Current Living Situation: Spouse Current Living Situation Comment: lives with ; no kids current occupational status: employed 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; HV[employer] Feels Safe at Home: Yes Smoking Status: Current every day smoker Tobacco Type: cigarettes ; Cigarettes Per Day: does not know, recently none ; Second Hand Exposure: No ; Hx Alcohol Use: Yes Hx Substance Use: No Childhood Exposure to Second-Hand Smoke: Yes Dental Care, Regularly: Yes Physical Activity Frequency: Does not Exercise Seatbelt Use: sometimes Sunscreen Use: No Review of Systems Review of Systems: Unobtainable due to cognitive status Physical Exam Physical Exam: PE: Patient will open eyes to loud voice and physical stimulation, appears comfortable HEENT: Gaze unfocused when eyes open Respiratory: Unlabored, coarse breath sounds, adequate saturations on 2 L O2 via NC CV: Regular rate Abdomen: Soft, no grimace with palpation, obese Extremities: Patient does not move extremities when aroused Neuro: Patient will open eyes briefly but did not seem to recognize PG Care Time/CCT Total # of Minutes Spent Total Time Spent with Patient: Total time spent 70 minutes with greater than 50% of time spent at bedside discussing goals of care and providing support to patient's as well as coordinating care with the patient's attending physician. Coding Level of Care Code 05690 Inpt Consult Level 3 Diagnoses Palliative care encounter Z51.5 AMS (altered mental status) R41.82 Metabolic encephalopathy G93.41 Acute hypoxemic respiratory failure J96.01 ARDS (adult respiratory distress syndrome) J80 JACQUELINE (acute kidney injury) N17.9 Suspected 2019 novel coronavirus infection R68.89 Time Spent (min) 70
[2019-12-26 18:19] VITALS: BP 118/74; PULSE 91
--- NOTE | 2019-12-31 08:05 | Discharge Summary ---
Date of Service December 26, 2019 Admission HPI Per Admitting Provider 64yo male with history of COPD, ongoing tobacco dependence, T2DM, obesity, ASA on CPAP - presents from home with 10-14 days of cough, worsening shortness of breath, fevers (which worsened 3-4 days ago), poor appetite, and runny nose. Patient works in the [employer] industry but has not worked of late. No recent travel. No obvious sick contacts. 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 Due to worsening respiratory distress this am he was brought to the [facility] ER. Upon arrival he was hypoxic in the 70s and placed on BIPAP for such. By report he was quite lethargic upon admission but after receiving BIPAP his mentation improved. During my admission assessment he was able to answer all of my questions but at times he was confused. Admits to not checking his blood sugars at home. After I had left his isolation room staff reported that he has an ulcer on one of his feet (per ). Principal Diagnosis Acute respiratory failure with hypoxia Discharge Exam Constitutional: WD/WN, vitals as above, ENMT: external ear and nose normal, oropharynx normal Respiratory: normal rate. Cardiovascular: Rate/Rhythm: regular rate and regular rhythm Gastrointestinal (Abdomen): Inspection/Auscultation: abdomen normal to inspection; abdomen not distended Neurologic: + not awake Psychiatric: + not alert Discharge Data Allergies Allergy/AdvReac Type Severity Reaction Status Date / Time egg Allergy Unknown Unknown Verified 12/17/19 18:57 MIKAEL Inhibitors AdvReac Mild cough Unverified 12/30/19 13:27 Consultations 12/05/19 13:38 Consult Case Management - Discharge Planning Routine Consult Distillery Worker Routine 12/09/19 08:28 Consult Nephrology Routine 12/24/19 08:44 Consult Neurology Routine 12/24/19 15:30 Consult Wound Care Provider Routine 12/25/19 23:31 Consult Case Management - Discharge Planning Routine Consult Palliative Care Routine Ordered Studies 12/08/19 10:26 US renal/blad retro comp Urgent 12/08/19 12:33 US point of care ultrasound Stat 12/11/19 15:30 US venous doppler LE BI Urgent 12/14/19 08:37 US point of care ultrasound Urgent 12/19/19 07:53 US point of care ultrasound Urgent 12/24/19 21:56 MR brain wo con Urgent 12/25/19 21:35 US abdomen limited Routine Hospital Course (1) Acute respiratory failure with hypoxia: B/l pneumonia on chest x-ray. Clinical picture highly concerning for COVID-19, although two nasopharyngeal tests have come back negative for COVID-19 ([facility] on 12/04; [employer] [facility] on 12/07). No plans for further testing as this would not change treatment or prognosis at this time. - Continues with hemodialysis to remove volume and help correct acidosis, treat azotemia -> New central line placed on 12/18. - Stopped abx per ICU team. -terminally extubated after discussion with and ICU team. Plan is to discharge to home on home hospice. will discharge on morhpine and lorazepam for comfort. (2) Afib: Went into afib with RVR on 12/16. Required cardioversion when he became hypotensive, but back into it. - Converted to sinus rhythm on 12/19. No further episodes as of 12/20. - was on metoprolol tartrate 50 mg NG Q8h & amiodarone 200 mg NG BID d/c on comfort (3) ARDS (adult respiratory distress syndrome): As above, unclear etiology, COVID testing was negative from both [place] [facility] and [facility]. - Started trial of IV steroids on 12/10 - continue to taper per pulmonary/ICU d/c on comfort (4) Suspected 2019 novel coronavirus infection: See above in "acute hypoxic resp failure." - [employer] negative x 2 - Flu negative - COVID-19 negative on 12/27 from [facility] and on [facility] COVID test on 12/07. - Third COVID 19 test was negative on 12/24; will remove from airbone and contact precaution. d/c on comfort (5) Sepsis: Secondary to pneumonia. - Continue supportive care (6) Acute renal failure (ARF): Secondary to dehydration/sepsis/ATN. - Now on HD - Continue to hold MIKAEL and HCTZ - Appreciate nephrology consultation for hemodialysis management of renal failure -> HD running today. (7) Hypertension: Was hypotensive on 12/19 with afib with RVR, but now on 12/20, his BP is up. - On beta-kristian as above for rate-control and hydralazine 50 mg NG QID per ICU team. (8) Chronic obstructive pulmonary disease: By history, but not on inhalers at home. (9) Current smoker: 50+ years of smoking per patient. (10) Gastroesophageal reflux disease: Pepcid IV daily (11) Gout: No recent issues. Not on prophylaxis. (12) Diabetes mellitus type II, uncontrolled: Hyperglycemic ICU protocol, hyperglycemia worsened with starting IV steroids-pharmacy has intensified the insulin regimen and steroids are being tapered down-glucose is now improved. - Defer to pharmacy - Now on basal-bolus on 12/18 -> Sugars doing better.. 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 Total Time Total Time Spent Total Time Spent (In Minutes): 35 Total Time Includes: Examination of the Patient, Discharge Planning and Medication Reconciliation Discharge Plan Discharge Items Patient Disposition: Hospice - Home Reason For Visit: COMFORT MEASURES Discharge Diagnosis: Comfort measures Activity: As commented below Activity Comment: bed rest Non-emergency contact: Primary Care Provider Call non-emergency contact if: you have any medication questions Follow-up/Referrals: Lee Jones MD [Primary Care Provider] - Diet: Other - See Diet Comment Diet Comment: NPO Addtl Attending Provider Instructions: Going home on Hospice Pending Studies at Discharge: No Stand-Alone Forms: My [facility]Cross[facility] Medications and DC Order Prescriptions: New morphine 20 mg/5 mL (4 mg/mL) solution 5 mg PO Q1H PRN (Reason: pain/sob) Qty: 100 RF: 0 lorazepam [Ativan] 0.5 mg tablet 0.5 mg PO Q2H PRN (Reason: agitation) Qty: 10 RF: 0 Discontinued atorvastatin 40 mg tablet 40 mg PO DAILY Qty: 90 RF: 3 linagliptin 5 mg tablet 5 mg PO DAILY Qty: 90 RF: 1 (DME) insulin syringe-needle U-100 [BD Insulin Syringe Ultra-Fine] 1 mL 30 gauge x 1/2" syringe See Dose Instructions .ROUTE .MEDSUPPLY Qty: 100 RF: 2 insulin glargine 100 unit/mL solution 54 units subcut QPM Qty: 5 RF: 2 amlodipine 10 mg tablet 10 mg PO DAILY Qty: 90 RF: 0 glimepiride 4 mg tablet 8 mg PO DAILY Qty: 180 RF: 0 lisinopril-hydrochlorothiazide 20-12.5 mg tablet 2 tab PO DAILY Qty: 180 RF: 0 metformin 1,000 mg tablet 1,000 mg PO UD Qty: 180 RF: 0 Discharge Orders: Discharge Order (Routine); Ordered 12/26/19 Ordered By: Cash Garcia Admission Data Admit Date/Time: 12/05/19 12:32 Attending Provider: Cash Garcia Admit Provider: Hector Turner Primary Care Provider: Lee Jones Other Providers: [facility] ; Sotero Goel ; Rony Ferguson ; Timothy Lewis ; Margarita Gallo ; Kiko Larson Other Interventions: Discharge Summary Assessment (RN) Last Done: 12/26/19 15:29 DC Date/Time DO NOT enter until pt leaves facility: 12/26/19 18:55 Coding Level of Care Code D/C Day Management >30 mins Diagnoses Acute respiratory failure with hypoxia J96.01 Afib I48.91 ARDS (adult respiratory distress syndrome) J80 Suspected 2019 novel coronavirus infection R68.89 Sepsis A41.9 Acute renal failure (ARF) N17.9 Acute renal failure type: unspecified Hypertension I10 Chronic obstructive pulmonary disease J44.9 Current smoker F17.200 Gastroesophageal reflux disease K21.9 Gout M10.9 Diabetes mellitus type II, uncontrolled E11.65 DVT prophylaxis Z29.9 Time Spent (min) 35
== END 2019-12-26 18:55 | disposition hospice, home (50) | DRG 189 ==
LOC: ED 08:55 → 1E 12:32 → SUATTDRO 12:32 → 1E 13:15 → D.DISASTER 12-11 19:31 → 1E 12-11 21:14 → EDINP 12-11 21:35 → D.DISASTER 12-11 21:48 → PACUINP 12-12 16:44 → 1E 12-13 23:19 → 3E 12-26 00:58